=== PATIENT | female | born 1970 | race Caucasian/White ===

== ENCOUNTER 2023-05-13 10:30 | Observation (INO) | payer OTHER, SELFPAY ==
[2023-05-13] VITALS (12 sets, daily range): BP systolic 120–151; BP diastolic 78–84; PULSE 54–89; RESP 15–20; TEMP 36.3–36.7; O2SAT 94–99; BMI 37.1
--- NOTE | 2023-05-13 10:43 | ED.GENADUL1 ---
HPI - General Adult General Chief complaint: Urogenital-Female Stated complaint: COLD/BACK PAIN/POSS. UTI Time Seen by Provider: 05/13/23 10:43 History of Present Illness HPI narrative: this patient's here with her for evaluation of left flank and abdominal pain. She says her back trace been bothering her off and on for a couple months. She says her arthritis doctor thought it was probably arthritis. She has not had any blood in her urine. She has no history kidney stones personally, but she thinks her family does. She had a temperature of one zero two last night. She's had some shaking chills. She had sepsis five years ago when she was undergoing treatment for breast cancer. She's had bilateral mastectomy and lymph node dissection but the cancer originally was on her right breast. They did left breast prophylactically. She's not had any surgical procedures on her abdomen. She's not had previous hysterectomy or nephrectomy. She did not take any antibiotics. She is not on any chemotherapy now. She previously had a port in place but she doesn't now. She requests that we use her left arm for intravenous access. She's not had any vomiting but she has severe nausea. She has not had any diarrhea. Related Data Home Medications Medication Instructions Recorded Confirmed amlodipine 10 mg tablet 10 mg PO DAILY 05/13/23 05/13/23 atorvastatin 20 mg tablet 20 mg PO QPM 05/13/23 05/13/23 citalopram 20 mg tablet 20 mg PO DAILY 05/13/23 05/13/23 dapagliflozin propanediol 5 mg 5 mg PO DAILY 05/13/23 05/13/23 tablet (Farxiga) gabapentin 300 mg capsule 300 mg PO TID 05/13/23 05/13/23 glipizide 5 mg tablet 5 mg PO DAILY 05/13/23 05/13/23 losartan 100 1 tab PO DAILY 05/13/23 05/13/23 mg-hydrochlorothiazide 25 mg tablet oxaprozin 600 mg tablet 600 mg PO BID 05/13/23 05/13/23 tamoxifen 20 mg tablet 20 mg PO QPM 05/13/23 05/13/23 tizanidine 4 mg tablet 4 mg PO QPM 05/13/23 05/13/23 triamterene 37.5 1 cap PO DAILY 05/13/23 05/13/23 mg-hydrochlorothiazide 25 mg capsule triamterene 50 mg capsule 25 mg PO DAILY 05/13/23 05/13/23 Allergies Allergy/AdvReac Type Severity Reaction Status Date / Time acetaminophen [From Percocet] Allergy Severe Verified 05/13/23 10:45 homatropine [From Hycodan] Allergy Severe Verified 05/13/23 10:45 hydrocodone [From Hycodan] Allergy Severe Verified 05/13/23 10:45 naproxen [From Aleve] Allergy Severe Verified 05/13/23 10:45 oxycodone [From Percocet] Allergy Severe Verified 05/13/23 10:45 Sulfa (Sulfonamide Allergy Severe Verified 05/13/23 10:45 Antibiotics) Penicillins Allergy Mild Verified 05/13/23 10:45 PFSH PFSH Medical History (Updated 05/13/23 @ 12:58 by Bam Hudson MD) Acquired lymphedema ?I89.0 - Lymphedema, not elsewhere classified (ICD-10) Breast cancer ?C50.919 - Malignant neoplasm of unspecified site of unspecified female breast (ICD-10) Diabetes ?E11.9 - Type 2 diabetes mellitus without complications (ICD-10) Surgical History (Updated 05/13/23 @ 11:26 by Tanya Escobar) History of mastectomy ?Z90.10 - Acquired absence of unspecified breast and nipple (ICD-10) Exam Constitutional Vital Signs, click to edit/add: Last Vital Signs Temp 98.0 F 05/13/23 10:36 Pulse 88 05/13/23 12:34 Resp 18 05/13/23 12:34 BP 143/79 H 05/13/23 12:34 Pulse Ox 94 L 05/13/23 12:34 O2 Del Method Room Air 05/13/23 10:52 Course Vital Signs Vital signs: Vital Signs Temperature 98.0 F 05/13/23 10:36 Pulse Rate 89 05/13/23 10:36 Respiratory Rate 20 05/13/23 10:36 Blood Pressure 120/78 05/13/23 10:36 Pulse Oximetry 99 05/13/23 10:36 Oxygen Delivery Method Room Air 05/13/23 10:36 Temperature 98.0 F 05/13/23 10:36 Pulse Rate 88 05/13/23 12:34 Respiratory Rate 18 05/13/23 12:34 Blood Pressure 143/79 H 05/13/23 12:34 Pulse Oximetry 94 L 05/13/23 12:34 Oxygen Delivery Method Room Air 05/13/23 10:52 Medical Decision Making MDM Narrative Medical decision making narrative: this patient presents with history of rigors previous history of sepsis five years ago. Her urinalysis consistent with urinary tract infection. Lactate levels are up Holter she's not tachycardic or hypotensive and her white count is normal. She was put in sepsis protocol with IV fluids and early antibiotics. I'll discuss this with the hospitalist. Lab Data Labs: Lab Results 05/13/23 05/13/23 05/13/23 Range/Units 10:47 11:19 12:15 WBC 6.4 (4.0-11.0) 10^3/uL RBC 5.27 (4.20-5.40) 10^6/uL Hgb 15.7 (12.0-16.0) g/dL Hct 44.9 (36.0-48.0) % MCV 85.2 (81.0-99.0) fL MCH 29.8 (26.7-34.0) pg MCHC 35.0 (29.9-35.2) g/dL RDW 13.0 (11.0-15.0) % Plt Count 135 L (150-450) 10^3/uL MPV 9.7 (9.5-13.5) fL Neut % (Auto) 82.2 H (43.0-75.0) % Lymph % (Auto) 12.3 L (20.5-60.0) % [place] % (Auto) 3.6 (1.7-12.0) % Eos % (Auto) 0.8 L (0.9-7.0) % Baso % (Auto) 0.5 (0.2-2.0) % Neut # (Auto) 5.3 (1.4-6.5) 10^3/uL Lymph # (Auto) 0.8 L (1.2-3.8) 10^3/uL [place] # (Auto) 0.2 L (0.3-0.8) 10^3/uL Eos # (Auto) 0.1 (0.0-0.7) 10^3/uL Baso # (Auto) 0.0 (0.0-0.1) 10^3/uL Abs Immat Gran (auto) 0.04 H (0.00-0.03) 10^3/uL Imm/Tot Granulo (auto) 0.6 H (0.0-0.5) % VBG pH 7.429 (7.330-7.430) VBG pCO2 37.3 L (40.0-52.0) mmHg Sodium 138 (136-145) mmol/L Potassium 2.9 L* (3.5-5.1) mmol/L Chloride 99 (98-107) mmol/L Carbon Dioxide 24.4 (21.0-32.0) mmol/L Anion Gap 17.5 BUN 23.0 H (7.0-18.0) mg/dL Creatinine 1.00 (0.55-1.02) mg/dL Est GFR ( Amer) >60 (>=60) Est GFR (Non-Af Amer) 59 L (>=60) BUN/Creatinine Ratio 23.0 Glucose 180 H (74-106) mg/dL Lactate 2.3 H* (0.4-2.0) mmol/L Calcium 8.9 (8.5-10.1) mg/dL Total Bilirubin 0.4 (0.2-1.0) mg/dL AST 53 H (15-37) U/L ALT 32 (14-59) U/L Alkaline Phosphatase 55 (46-116) U/L Total Protein 7.3 (6.4-8.2) g/dL Albumin 3.6 (3.4-5.0) g/dL Globulin 3.7 g/dL Albumin/Globulin Ratio 1.0 Urine Color Yellow (YELLOW) Urine Clarity Clear (CLEAR) Urine pH 6.5 (5.0-9.0) Ur Specific [place] 1.015 (1.005-1.025) Urine Protein Negative (NEG/TRACE) mg/dL Urine Glucose (UA) >=1000 A (NEGATIVE) mg/dL Urine Ketones Negative (NEGATIVE) mg/dL Urine Occult Blood Negative (NEGATIVE) Urine Nitrite Positive A (NEGATIVE) Urine Bilirubin Negative (NEGATIVE) Urine Urobilinogen 0.2 (0.2-1.0) EU/dL Ur Leukocyte Esterase Negative (NEGATIVE) Urine RBC None seen (0-2) #/HPF Urine WBC 10-20 A (NONE SEEN) #/HPF Ur Squamous Epith Cells Few A (NONE/RARE) #/LPF Urine Bacteria Large A (NONE SEEN) #/HPF Urine Mucus None seen (NONE SEEN) Ur Culture Indicated? Yes Discharge Plan Discharge Chief Complaint: Urogenital-Female Clinical Impression: Urinary tract infection, Sepsis Patient Disposition: Admitted as Observation Time of Disposition Decision: 12:58 Prescriptions / Home Meds: No Action amlodipine 10 mg tablet 10 mg PO DAILY atorvastatin 20 mg tablet 20 mg PO QPM citalopram 20 mg tablet 20 mg PO DAILY Farxiga 5 mg tablet 5 mg PO DAILY gabapentin 300 mg capsule 300 mg PO TID glipizide 5 mg tablet 5 mg PO DAILY losartan-hydrochlorothiazide 100-25 mg tablet 1 tab PO DAILY oxaprozin 600 mg tablet 600 mg PO BID tamoxifen 20 mg tablet 20 mg PO QPM triamterene-hydrochlorothiazid 37.5-25 mg capsule 1 cap PO DAILY tizanidine 4 mg tablet 4 mg PO QPM triamterene 50 mg capsule 25 mg PO DAILY Referrals: ARMIN FRITZ [Primary Care Provider] - 1 week
--- NOTE | 2023-05-13 10:46 | CT_ITS ---
[address] [address] Patient Name: MARIA M MCKEON MRN: [id number] date: 1970 Sex: F Assigned Patient Location: ER Current Patient Location: ER Accession/Order Number: [id number] Exam Date: 05/13/2023 11:26 Report Date: 05/13/2023 12:33 At the request of: ERENDIRA RIVERA Procedure: CT abdomen pelvis wo con EXAM: CT abdomen pelvis wo con INDICATION: flank pain/fever. COMPARISON: CT abdomen pelvis 05/28/2021. TECHNIQUE: Multiple contiguous axial CT images of the abdomen and pelvis were obtained without the use of intravenous contrast. Sagittal and coronal reconstructions were performed. Dose reduction techniques were achieved by using: automated exposure control and/or adjustment of mA and /or kV according to patient size and/or use of iterative reconstruction technique. FINDINGS: Evaluation of visceral organs limited by noncontrast technique. LOWER CHEST: Clear lung bases. The heart is normal in size. No pericardial or pleural effusion. ABDOMEN AND PELVIS: Liver: Diffuse fatty infiltration. Biliary System: Normal gallbladder. No biliary ductal dilatation. Pancreas: Unremarkable. Spleen: Unremarkable. Adrenal Glands: Normal. Urinary System: No renal, ureteral, or bladder calculi. No hydronephrosis or perinephric fatty stranding. Normal bladder. Reproductive organs: Unremarkable. Gastrointestinal Tract: Normal caliber bowel. No bowel wall thickening or inflammation. Normal appendix. Colonic diverticulosis without diverticulitis. Vessels: Nonaneurysmal abdominal aorta with minimal atherosclerotic calcifications.. Lymph Nodes: No adenopathy. Peritoneum: No ascites or pneumoperitoneum. MUSCULOSKELETAL: Soft tissues: Unremarkable soft tissues. Bones: No acute osseous abnormality or suspicious osseous lesion. DARLING: (series:image) CT/CT abdomen pelvis wo con IMPRESSION: 1. No obstructive uropathy or other acute process. 2. Hepatic steatosis. 3. Colonic diverticulosis. Electronically authenticated by: JOSE GOMEZ Date: 05/13/2023 12:33
--- NOTE | 2023-05-13 10:52 | PC.NURSE ---
urine collected, yellow and cloudy
[2023-05-13 11:26] LABS: Bilirubin Urine NEGATIVE (NEGATIVE); Blood Urine NEGATIVE (NEGATIVE); Clarity Urine CLEAR (CLEAR); Color Urine YELLOW (YELLOW); Glucose Urine UA >=1000 mg/dL (NEGATIVE); Ketones Urine NEGATIVE (NEGATIVE); Leukocyte Esterase Urine NEGATIVE (NEGATIVE); Nitrite Urine POSITIVE (NEGATIVE); Protein Urine NEGATIVE (NEG/TRACE); Specific Gravity Urine 1.015 (1.005-1.025); Urobilinogen Urine 0.2 EU/dL (0.2-1.0); pH Urine 6.5 (5.0-9.0)
[2023-05-13 11:31] LABS: Urine Microscopic Indicated YES
[2023-05-13] MEDS: ONDANSETRON PF 4 MG/2 ML VIAL IV (11:32)
[2023-05-13] MEDS: 0.9 % SODIUM CHLORIDE 1,000 ML 999 ML IV (11:32)
[2023-05-13 11:37] LABS: Basophils Percent Auto 0.5 % (0.2-2.0); Eosinophils Absolute Auto 0.1 10^3/uL (0.0-0.7); Eosinophils Percent Auto 0.8 % (0.9-7.0); Hematocrit 44.9 % (36.0-48.0); Hemoglobin 15.7 g/dL (12.0-16.0); Immature Granulocytes Abs Auto 0.04 10^3/uL (0.00-0.03); Immature Granulocytes Pct Auto 0.6 % (0.0-0.5); Lymphocytes Absolute Auto 0.8 10^3/uL (1.2-3.8); Lymphocytes Percent Auto 12.3 % (20.5-60.0); Mean Corpuscular Hemoglobin 29.8 pg (26.7-34.0); Mean Corpuscular Volume 85.2 fL (81.0-99.0); Mean Platelet Volume 9.7 fL (9.5-13.5); Monocytes Absolute Auto 0.2 10^3/uL (0.3-0.8); Monocytes Percent Auto 3.6 % (1.7-12.0); Neutrophils Absolute Auto 5.3 10^3/uL (1.4-6.5); Neutrophils Percent Auto 82.2 % (43.0-75.0); Platelet Count 135 10^3/uL (150-450); Red Blood Count 5.27 10^6/uL (4.20-5.40); White Blood Count 6.4 10^3/uL (4.0-11.0)
[2023-05-13 11:39] LABS: Bacteria Urine LARGE #/HPF (NONE SEEN); Mucus Urine NONE SEEN (NONE SEEN); RBC Urine NONE SEEN #/HPF (0-2); Squamous Epithelial Cell Urine FEW #/LPF (NONE/RARE); Urine Culture Indicated YES
[2023-05-13 11:58] LABS: Alanine Aminotransferase 32 U/L (14-59); Albumin Level 3.6 g/dL (3.4-5.0); Alkaline Phosphatase 55 U/L (46-116); Anion Gap 17.5; Aspartate Amino Transferase 53 U/L (15-37); Bilirubin Total 0.4 mg/dL (0.2-1.0); Calcium 8.9 mg/dL (8.5-10.1); Carbon Dioxide 24.4 mmol/L (21.0-32.0); Chloride 99 mmol/L (98-107); Estimated GFR (African America >60 (>=60); Estimated GFR (Non-African Ame 59 (>=60); Globulin 3.7 g/dL; Glucose 180 mg/dL (74-106); Sodium 138 mmol/L (136-145); Total Protein 7.3 g/dL (6.4-8.2)
[2023-05-13 12:00] LABS: Lactate/Lactic Acid 2.3 mmol/L (0.4-2.0)
--- NOTE | 2023-05-13 12:00 | ECG_ITS ---
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
[2023-05-13] MEDS: CIPROFLOXACIN IN 5 % DEXTROSE 400 MG/200 ML PIGGYBACK IV (12:01)
[2023-05-13 12:02] LABS: Potassium 2.9 mmol/L (3.5-5.1)
[2023-05-13] MEDS: POTASSIUM CHLORIDE 10 MEQ ER TABLET 20 MEQ PO ×3 (12:29→20:18)
[2023-05-13 12:31] LABS: pH VBG 7.429 (7.330-7.430)
[2023-05-13 12:32] LABS: PCO2 VBG 37.3 mmHg (40.0-52.0)
[2023-05-13] MEDS: 0.9 % SODIUM CHLORIDE 1,503 ML 501 ML IV (12:38)
[2023-05-13] MEDS: ENOXAPARIN SODIUM 40 MG/0.4 ML SYRINGE SUBQ (14:39)
[2023-05-13] MEDS: LACTATED RINGER'S SOLUTION 1,000 ML 125 ML IV ×2 (14:39→22:34)
--- NOTE | 2023-05-13 15:31 | P.HP_ITS ---
H&P: HPI History of Present Illness Chief complaint: COLD/BACK PAIN/SEPSIS/UTI Narrative: patient is a 52-year-old white female with past medical history of [id number] type 2 diabetes, hypertension, status post vasectomy from breast cancer currently on tamoxifen therapypresented to the Emergency Room today with increased weakness, fevers chills. She states over the last month she has been having some right low back pain and some pain and urgency with urination. She denies any blood in her urine but yesterday started to feel flushed like she had a fever and just extreme fatigue. In the Emergency Room she was found to have a urinary tract infection, and elevated lactate, elevated temperature a hundred and two, and tachycardia. Sepsis protocol was initiated and patient was admitted for further care. At the time of admission she denies any nausea vomiting or diarrhea. Does admit to some left flank pain and some suprapubic pain. Review of Systems ROS Narrative ROS: a complete review of systems were reviewed with patient and are positive as below or listed in History of Chief Complaint. General: fever, chills, no night sweats Head: no headache, trauma, visual changes, nausea or vomiting Skin: no reported rashes, itching or sores Eyes: no blurriness of vision Ears: no reported hearing loss, vertigo, earache, or tinnitus Throat: no sore throat, hoarseness, swelling of neck, or tongue pain Heart: no chest pain Lungs: no shortness of breath or cough GI: no diarrhea or vomiting/nausea Urinary: urinary urgency, frequency and pain Neuro: no numbness or tingling HEM: no bleeding issues or bruising ENDO: no thyroid problems Psych: no anxiety or depression [facility] Medical History (Updated 05/13/23 @ 15:39 by Elda Shannon DO) Acquired lymphedema ?I89.0 - Lymphedema, not elsewhere classified (ICD-10) Breast cancer ?C50.919 - Malignant neoplasm of unspecified site of unspecified female breast (ICD-10) Diabetes ?E11.9 - Type 2 diabetes mellitus without complications (ICD-10) Surgical History History of mastectomy ?Z90.10 - Acquired absence of unspecified breast and nipple (ICD-10) Family History Mother Family history of cancer Father Family history of diabetes mellitus Other Family history of myocardial infarction Social History Within the past year, how often did you have a drink containing alcohol: 2-4 times a month Within the past year, how many standard drinks containing alcohol did you have on a typical day: 1 or 2 Within the past year, how often did you have six or more drinks on one occasion: never Total score: 0 Score interpretation: A score less than 3 is consistent with normal alcohol consumption. 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 level of school completed/degree received: Master's degree Feel stressed/tense/nervous/anxious/difficulty sleeping: not at all Do you think of yourself as: straight/heterosexual Gender Identity: female Meds Home Medications and Allergies Home Medications Medication Instructions Recorded Confirmed Type amlodipine 10 mg tablet 10 mg PO DAILY 05/13/23 05/13/23 History atorvastatin 20 mg tablet 20 mg PO QPM 05/13/23 05/13/23 History citalopram 20 mg tablet 20 mg PO DAILY 05/13/23 05/13/23 History dapagliflozin propanediol 5 mg 5 mg PO DAILY 05/13/23 05/13/23 History tablet (Farxiga) gabapentin 300 mg capsule 300 mg PO TID 05/13/23 05/13/23 History glipizide 5 mg tablet 5 mg PO DAILY 05/13/23 05/13/23 History losartan 100 1 tab PO DAILY 05/13/23 05/13/23 History mg-hydrochlorothiazide 25 mg tablet oxaprozin 600 mg tablet 600 mg PO BID 05/13/23 05/13/23 History tamoxifen 20 mg tablet 20 mg PO QPM 05/13/23 05/13/23 History tizanidine 4 mg tablet 4 mg PO QPM 05/13/23 05/13/23 History triamterene 37.5 1 cap PO DAILY 05/13/23 05/13/23 History mg-hydrochlorothiazide 25 mg capsule Allergies Allergy/AdvReac Type Severity Reaction Status Date / Time acetaminophen [From Percocet] Allergy Severe Verified 05/13/23 10:45 homatropine [From Hycodan] Allergy Severe Verified 05/13/23 10:45 hydrocodone [From Hycodan] Allergy Severe Verified 05/13/23 10:45 naproxen [From Aleve] Allergy Severe Verified 05/13/23 10:45 oxycodone [From Percocet] Allergy Severe Verified 05/13/23 10:45 Sulfa (Sulfonamide Allergy Severe Verified 05/13/23 10:45 Antibiotics) Penicillins Allergy Mild Verified 05/13/23 10:45 Exam Narrative Exam Narrative: General: Patient is alert, and oriented to person, place and time with normal affect, proper hygiene Skin: no visible rashes, or ulcers Head: atraumatic, acephalic Eyes: PERRLA, no nystagmus present, conjunctiva clear, no scleral icterus Ears: normal gross auditory acuity Heart: Normal rate and rhythm, no murmurs/rubs/gallops Lungs: no audible wheezes, crackles and normal breath sounds all lung fernandes Abdomen: Normal audible bowel sounds, no distension, No palpable masses, no organomegaly, no rebound/guarding/ or rigidity Musculoskeletal: no swelling bilateral lower extremities Vascular: Normal carotid, radial, femoral, posterior tibial, and dorsalis pedis pulses Lymph: no supraclavicular, axillary, or anterior/posterior cervical adenopathy Neuro: CN II-X grossly intact, normal sensation upper and lower extremities Constitutional Vital Signs, click to edit/add: Last Vital Signs Temp 98.0 F 05/13/23 14:04 Pulse 88 05/13/23 14:04 Resp 16 05/13/23 14:04 BP 151/84 H 05/13/23 14:04 Pulse Ox 96 05/13/23 14:04 O2 Del Method Room Air 05/13/23 14:04 Results Labs Labs: Short CBC 05/13/23 Range/Units 11:19 WBC 6.4 (4.0-11.0) 10^3/uL Hgb 15.7 (12.0-16.0) g/dL Hct 44.9 (36.0-48.0) % Plt Count 135 L (150-450) 10^3/uL BMP 05/13/23 11:19 Sodium 138 Potassium 2.9 L* Chloride 99 Carbon Dioxide 24.4 BUN 23.0 H Creatinine 1.00 Glucose 180 H Calcium 8.9 Liver Function 05/13/23 Range/Units 11:19 Total Bilirubin 0.4 (0.2-1.0) mg/dL AST 53 H (15-37) U/L ALT 32 (14-59) U/L Alkaline Phosphatase 55 (46-116) U/L Albumin 3.6 (3.4-5.0) g/dL Urine 05/13/23 Range/Units 10:47 Urine Color Yellow (YELLOW) Urine Clarity Clear (CLEAR) Urine pH 6.5 (5.0-9.0) Ur Specific [place] 1.015 (1.005-1.025) Urine Protein Negative (NEG/TRACE) mg/dL Urine Glucose (UA) >=1000 A (NEGATIVE) mg/dL ABG ABG results: 05/13/23 12:15 VBG pH 7.429 VBG pCO2 37.3 L Assessment and Plan Assessment and Plan (1) Urinary tract infection: Assessment and Plan: UA positive urine culture pending, was given Cipro in the emergency department will place on Levaquin [address] of abdomen and pelvis was negative (2) Sepsis: Assessment and Plan: elevated lactate, tachycardia, fever. Sepsis protocol was initiated and blood cultures urine culture and fluid bolus of thirty ML's per kilo in the Emergency Room then we'll place on LR at one hundred. Continue to trend lactate levels patient was placed in ICU for closer observation (3) Hypokalemia: Assessment and Plan: start klor-con 20meq BID (4) Non-insulin dependent type 2 diabetes mellitus: Assessment and Plan: and watch Accu-Cheks every before meals and daily at bedtime, sliding scale insulin as needed hold orals (5) Hypertension: Assessment and Plan: continue amlodipine, losartan hydrochlorothiazide, triamterene hydrochlorothiazide (6) Depression: Assessment and Plan: continue Celexa (7) Hyperlipidemia: Assessment and Plan: continue atorvastatin Plan patient is a full code lovenox for dvt prophylaxis
[2023-05-13] MEDS: ATORVASTATIN CALCIUM 20 MG TABLET PO (20:17)
[2023-05-13] MEDS: TIZANIDINE HCL 4 MG TABLET PO (20:17)
[2023-05-13] MEDS: TAMOXIFEN CITRATE 10 MG TABLET 20 MG PO (20:18)
[2023-05-13 21:38] LABS: Glucometer 173 mg/dL (74-106)
[2023-05-13] MEDS: GABAPENTIN 300 MG CAPSULE PO (21:43)
[2023-05-13] MEDS: INSULIN ASPART 300 UNIT/3 ML PEN SUBQ (21:43)
--- NOTE | 2023-05-13 22:29 | PC.NURSE ---
patient transferred from ICU to med-surg at 2215. Patient is resting in bed with call light in reach. LR at 125ml/hr was restarted. patient denies needs at this time.
[2023-05-14] VITALS (7 sets, daily range): BP systolic 123; BP diastolic 80; PULSE 54–69; RESP 18; TEMP 36.6; O2SAT 98
[2023-05-14] MEDS: GABAPENTIN 300 MG CAPSULE PO (05:15)
[2023-05-14 05:27] LABS: Basophils Percent Auto 0.8 % (0.2-2.0); Eosinophils Absolute Auto 0.2 10^3/uL (0.0-0.7); Hematocrit 40.9 % (36.0-48.0); Hemoglobin 13.7 g/dL (12.0-16.0); Immature Granulocytes Abs Auto 0.02 10^3/uL (0.00-0.03); Immature Granulocytes Pct Auto 0.5 % (0.0-0.5); Lymphocytes Absolute Auto 1.6 10^3/uL (1.2-3.8); Lymphocytes Percent Auto 39.6 % (20.5-60.0); Mean Corpuscular HGB Conc 33.5 g/dL (29.9-35.2); Mean Corpuscular Hemoglobin 29.2 pg (26.7-34.0); Mean Corpuscular Volume 87.2 fL (81.0-99.0); Mean Platelet Volume 9.7 fL (9.5-13.5); Monocytes Absolute Auto 0.5 10^3/uL (0.3-0.8); Monocytes Percent Auto 11.9 % (1.7-12.0); Neutrophils Absolute Auto 1.7 10^3/uL (1.4-6.5); Neutrophils Percent Auto 43.2 % (43.0-75.0); Platelet Count 112 10^3/uL (150-450); Red Blood Count 4.69 10^6/uL (4.20-5.40); Red Cell Distribution Width 13.2 % (11.0-15.0)
[2023-05-14] MEDS: LACTATED RINGER'S SOLUTION 1,000 ML 125 ML IV (06:01)
[2023-05-14 06:20] LABS: Alanine Aminotransferase 27 U/L (14-59); Albumin Globulin Ratio 0.9; Alkaline Phosphatase 42 U/L (46-116); Anion Gap 13.4; Aspartate Amino Transferase 43 U/L (15-37); Bilirubin Total 0.2 mg/dL (0.2-1.0); Calcium 8.6 mg/dL (8.5-10.1); Carbon Dioxide 23.4 mmol/L (21.0-32.0); Chloride 101 mmol/L (98-107); Estimated GFR (African America >60 (>=60); Estimated GFR (Non-African Ame >60 (>=60); Globulin 3.4 g/dL; Glucose 133 mg/dL (74-106); Potassium 3.8 mmol/L (3.5-5.1); Sodium 134 mmol/L (136-145); Total Protein 6.4 g/dL (6.4-8.2)
[2023-05-14 07:51] LABS: Glucometer 144 mg/dL (74-106)
--- NOTE | 2023-05-14 08:24 | PM.DS1 ---
DS: Providers Provider Date of admission: 05/13/23 13:54 Primary care physician: ARMIN FRITZ Admitting clinician: Elda Shannon Consults: 05/13/23 13:54 Occupational Therapy Eval and Treat Routine Reason for consultation: weakness Has provider been notified: No Physical Therapy Eval and Treat Routine Reason for consultation: weakness Has provider been notified: No Discharging clinician: Elda Shannon DS: Diagnosis Discharge Diagnosis (1) Urinary tract infection: (2) Sepsis: (3) Hypokalemia: (4) Non-insulin dependent type 2 diabetes mellitus: (5) Hypertension: (6) Depression: (7) Hyperlipidemia: DS: Summary Hospital Course Hospital Course: patient is a very pleasant 52-year-old female who was admitted for urinary tract infection and sepsis secondary to. Sepsis has resolved with IV fluid hydration and IV antibiotics. Normal labs findings this morning, patient symptoms has improved. She has remained afebrile overnight. Was given Cipro in the emergency department and was placed on Levaquin while in the hospital. She will be sent home on Levaquin 500 milligrams daily ?7 days. She will follow up with her primary care physician in 5-7 days who will follow up on urine culture is still pending at the time of discharge. She'll return to the Emergency Room with any worsening symptoms. She will resume all home medications there was no changes to her meds. Status at Discharge Functional status at discharge: independent ambulation Time Spent with Patient Time attestation: Total time spent providing and/or coordinating discharge services: Time spent: less than 30 minutes Exam Narrative Exam Narrative: General: Patient is alert, and oriented to person, place and time with normal affect, proper hygiene Skin: no visible rashes, or ulcers Head: atraumatic, acephalic Eyes: PERRLA, no nystagmus present, conjunctiva clear, no scleral icterus Ears: normal gross auditory acuity Nose: symmetric, no discharge, no maxillary or frontal sinus tenderness Mouth/Throat: no erythema, exudate, or tonsillar enlargement, normal dentition Neck: no masses palpated, normal thyroid, no JVD or audible carotid bruits Heart: Normal rate and rhythm, no murmurs/rubs/gallops Lungs: no audible wheezes, crackles and normal breath sounds all lung fernandes Abdomen: Normal audible bowel sounds, no distension, No palpable masses, no organomegaly, no rebound/guarding/ or rigidity Musculoskeletal: muscle atrophy noted, ROM is limited due to being in hospital bed, no swelling bilateral lower extremities Vascular: Normal carotid, radial, femoral, posterior tibial, and dorsalis pedis pulses Lymph: no supraclavicular, axillary, or anterior/posterior cervical adenopathy Neuro: CN II-X grossly intact, normal sensation upper and lower extremities Constitutional Vital Signs, click to edit/add: Last Vital Signs Temp 97.8 F 05/14/23 05:18 Pulse 62 05/14/23 07:54 Resp 18 05/14/23 05:18 BP 123/80 05/14/23 05:18 Pulse Ox 98 05/14/23 05:18 O2 Del Method Room Air 05/14/23 05:18 DS: Data Data Completed and Pending Labs on day of discharge: Labs from last 24 hours 05/14/23 05/14/23 05/13/23 07:49 05:14 21:37 WBC 4.0 RBC 4.69 Hgb 13.7 Hct 40.9 MCV 87.2 MCH 29.2 MCHC 33.5 RDW 13.2 Plt Count 112 L MPV 9.7 Neut % (Auto) 43.2 Lymph % (Auto) 39.6 [place] % (Auto) 11.9 Eos % (Auto) 4.0 Baso % (Auto) 0.8 Neut # (Auto) 1.7 Lymph # (Auto) 1.6 [place] # (Auto) 0.5 Eos # (Auto) 0.2 Baso # (Auto) 0.0 Abs Immat Gran (auto) 0.02 Imm/Tot Granulo (auto) 0.5 VBG pH VBG pCO2 Sodium 134 L Potassium 3.8 Chloride 101 Carbon Dioxide 23.4 Anion Gap 13.4 BUN 17.0 Creatinine 0.81 Est GFR ( Amer) >60 Est GFR (Non-Af Amer) >60 BUN/Creatinine Ratio 21.0 Glucose 133 H Lactate Calcium 8.6 Total Bilirubin 0.2 AST 43 H ALT 27 Alkaline Phosphatase 42 L Total Protein 6.4 Albumin 3.0 L Globulin 3.4 Albumin/Globulin Ratio 0.9 Urine Color Urine Clarity Urine pH Ur Specific [place] Urine Protein Urine Glucose (UA) Urine Ketones Urine Occult Blood Urine Nitrite Urine Bilirubin Urine Urobilinogen Ur Leukocyte Esterase Urine RBC Urine WBC Ur Squamous Epith Cells Urine Bacteria Urine Mucus Ur Culture Indicated? POC Glucose 144 H 173 H 05/13/23 05/13/23 05/13/23 14:20 12:15 11:19 WBC 6.4 RBC 5.27 Hgb 15.7 Hct 44.9 MCV 85.2 MCH 29.8 MCHC 35.0 RDW 13.0 Plt Count 135 L MPV 9.7 Neut % (Auto) 82.2 H Lymph % (Auto) 12.3 L [place] % (Auto) 3.6 Eos % (Auto) 0.8 L Baso % (Auto) 0.5 Neut # (Auto) 5.3 Lymph # (Auto) 0.8 L [place] # (Auto) 0.2 L Eos # (Auto) 0.1 Baso # (Auto) 0.0 Abs Immat Gran (auto) 0.04 H Imm/Tot Granulo (auto) 0.6 H VBG pH 7.429 VBG pCO2 37.3 L Sodium 138 Potassium 2.9 L* Chloride 99 Carbon Dioxide 24.4 Anion Gap 17.5 BUN 23.0 H Creatinine 1.00 Est GFR ( Amer) >60 Est GFR (Non-Af Amer) 59 L BUN/Creatinine Ratio 23.0 Glucose 180 H Lactate 1.0 2.3 H* Calcium 8.9 Total Bilirubin 0.4 AST 53 H ALT 32 Alkaline Phosphatase 55 Total Protein 7.3 Albumin 3.6 Globulin 3.7 Albumin/Globulin Ratio 1.0 Urine Color Urine Clarity Urine pH Ur Specific [place] Urine Protein Urine Glucose (UA) Urine Ketones Urine Occult Blood Urine Nitrite Urine Bilirubin Urine Urobilinogen Ur Leukocyte Esterase Urine RBC Urine WBC Ur Squamous Epith Cells Urine Bacteria Urine Mucus Ur Culture Indicated? POC Glucose 05/13/23 10:47 WBC RBC Hgb Hct MCV MCH MCHC RDW Plt Count MPV Neut % (Auto) Lymph % (Auto) [place] % (Auto) Eos % (Auto) Baso % (Auto) Neut # (Auto) Lymph # (Auto) [place] # (Auto) Eos # (Auto) Baso # (Auto) Abs Immat Gran (auto) Imm/Tot Granulo (auto) VBG pH VBG pCO2 Sodium Potassium Chloride Carbon Dioxide Anion Gap BUN Creatinine Est GFR ( Amer) Est GFR (Non-Af Amer) BUN/Creatinine Ratio Glucose Lactate Calcium Total Bilirubin AST ALT Alkaline Phosphatase Total Protein Albumin Globulin Albumin/Globulin Ratio Urine Color Yellow Urine Clarity Clear Urine pH 6.5 Ur Specific [place] 1.015 Urine Protein Negative Urine Glucose (UA) >=1000 A Urine Ketones Negative Urine Occult Blood Negative Urine Nitrite Positive A Urine Bilirubin Negative Urine Urobilinogen 0.2 Ur Leukocyte Esterase Negative Urine RBC None seen Urine WBC 10-20 A Ur Squamous Epith Cells Few A Urine Bacteria Large A Urine Mucus None seen Ur Culture Indicated? Yes POC Glucose Discharge Plan Discharge Disposition: Home, Self-Care Discharge Medications: New levofloxacin 500 mg tablet 500 mg PO DAILY 7 Days Qty: 7 0RF Continued amlodipine 10 mg tablet 10 mg PO DAILY atorvastatin 20 mg tablet 20 mg PO QPM citalopram 20 mg tablet 20 mg PO DAILY Farxiga 5 mg tablet 5 mg PO DAILY gabapentin 300 mg capsule 300 mg PO TID glipizide 5 mg tablet 5 mg PO DAILY losartan-hydrochlorothiazide 100-25 mg tablet 1 tab PO DAILY oxaprozin 600 mg tablet 600 mg PO BID tamoxifen 20 mg tablet 20 mg PO QPM triamterene-hydrochlorothiazid 37.5-25 mg capsule 1 cap PO DAILY tizanidine 4 mg tablet 4 mg PO QPM Activity: resume usual activities as tolerated Diet: advance to your usual diet Forms: Portal Instructions Follow Up Appointments: With PCP in 5-7 days, PCP will need to follow up on urine culture results
[2023-05-14] MEDS: CITALOPRAM HYDROBROMIDE 20 MG TABLET PO (09:41)
[2023-05-14] MEDS: POTASSIUM CHLORIDE 10 MEQ ER TABLET 20 MEQ PO (09:41)
[2023-05-14] MEDS: LEVOFLOXACIN IN DEXTROSE 5 % 750 MG/150 ML IV.SOLN 100 MG IV (09:42)
[2023-05-14] MEDS: AMLODIPINE BESYLATE 5 MG TABLET 10 MG PO (09:42)
[2023-05-14] MEDS: LOSARTAN POTASSIUM 50 MG TABLET 100 MG PO (09:42)
[2023-05-14] MEDS: ENOXAPARIN SODIUM 40 MG/0.4 ML SYRINGE SUBQ (09:43)
[2023-05-14 11:32] LABS: Glucometer 168 mg/dL (74-106)
--- NOTE | 2023-05-15 15:46 | CM.DCFOLLOWU ---
Person spoke with: patient How are you feeling? better, tried to work today, but came home How is your pain? no pain Did you understand your discharge instructions? yes Do you have any questions about your discharge instructions? no Were you given any prescriptions at discharge? yes Were you able to get your prescriptions filled? yes Do you understand how to take your medications as ordered? yes Do you have any questions about your follow up appointment and do you plan to keep your follow up appointment? no questions, follow up scheduled Is there anything else that you would like to discuss? no Questions/Comments/Concerns/Other:
== END 2023-05-14 12:33 | disposition home or self-care (01) | DRG 872 ==
LOC: ER 12:58 → ICU 13:56 → MS 05-14 11:43 → ICU 05-15 16:45 → MS 07-21 15:16
PROVIDERS: Admitting Provider Family Medicine; Emergency Provider Emergency Medicine Emergency Medical Services; PCP Family Medicine; Visit Provider Family Medicine
DX: A41.9 Sepsis, unspecified organism (principal); N39.0 Urinary tract infection, site not specified; Z16.11 Resistance to penicillins; B96.1 Klebsiella pneumoniae [K. pneumoniae] as the cause of diseases classified elsewhere; E87.6 Hypokalemia; E11.9 Type 2 diabetes mellitus without complications; I10 Essential (primary) hypertension; E78.5 Hyperlipidemia, unspecified; F32.A Depression, unspecified; I89.0 Lymphedema, not elsewhere classified; Z85.3 Personal history of malignant neoplasm of breast; Z90.13 Acquired absence of bilateral breasts and nipples; Z79.84 Long term (current) use of oral hypoglycemic drugs; Z79.818 Long term (current) use of other agents affecting estrogen receptors and estrogen levels; Z79.899 Other long term (current) drug therapy; Z88.5 Allergy status to narcotic agent; Z88.0 Allergy status to penicillin; Z88.2 Allergy status to sulfonamides; Z88.8 Allergy status to other drugs, medicaments and biological substances; Z83.3 Family history of diabetes mellitus; Z80.9 Family history of malignant neoplasm, unspecified; Z82.49 Family history of ischemic heart disease and other diseases of the circulatory system
CPT/HCPCS: 36415; 74176; 80053; 81001; 82800; 83605; 84145; 85025; 87040; 87086; 87150; 87186; 93005; 94761; 96365; 96366; 96372; 96375; 99285; G0378

== ENCOUNTER 2023-05-22 08:21 | Outpatient (OUT) | payer OTHER, SELFPAY ==
[2023-05-23 04:07] LABS: Estradiol 20.1 pg/mL (.); FSH 11.5 mIU/mL (.); Luteinizing Hormone(LH) 10.2 mIU/mL (.)
== END 2023-05-22 08:22 | disposition home or self-care (01) ==
LOC: LAB 08:25
PROVIDERS: PCP Family Medicine
DX: N95.1 Menopausal and female climacteric states (principal)
CPT/HCPCS: 36415; 82670; 83001; 83002

== ENCOUNTER 2023-05-27 08:56 | Outpatient (OUT) | payer OTHER, SELFPAY ==
[2023-05-27 18:57] LABS: Free T4 1.12 ng/dL (0.76-1.46)
[2023-05-28 08:08] LABS: Triiodothyronine (T3) 235 ng/dL (71-180); Triiodothyronine (T3), Free 4.4 pg/mL (2.0-4.4)
[2023-06-04 01:06] LABS: Reverse T3, Serum 16.1 ng/dL (9.2-24.1)
== END 2023-05-27 08:57 | disposition home or self-care (01) ==
LOC: LAB 08:58
PROVIDERS: PCP Family Medicine; Visit Provider Family Medicine
DX: E06.3 Autoimmune thyroiditis (principal); R53.82 Chronic fatigue, unspecified; E07.81 Sick-euthyroid syndrome
CPT/HCPCS: 36415; 84439; 84443; 84480; 84481; 84482

== ENCOUNTER 2023-10-28 16:41 | Emergency (ER) | payer OTHER, SELFPAY ==
[2023-10-28 16:52] VITALS: BP 148/94; PULSE 90; TEMP 36.9; O2SAT 98; BMI 36.3
[2023-10-28 16:57] VITALS: O2SAT 98
--- NOTE | 2023-10-28 17:09 | ED.UPPEXIN1 ---
HPI HPI - Extremity Injury (Upper) General Chief Complaint: Extremity Injury, Upper Stated Complaint: Upper Extremity Pain, Right Arm Time Seen by Provider: 10/28/23 16:44 Source: patient Mode of arrival: walk-in History of Present Illness HPI narrative: The patient presented to us with a 24 hours history of redness noted on the left arm she mentioned that there was no history of trauma no history of any recent incident to the left arm, but she have a history of mastectomy and she have lymphedema in the left side sometimes patient had cellulitis that developed in that area as well and she is worried that why she came to the ER. She denies any fever any abdominal pain nausea vomiting Related Data Home Medications ?Medication ?Instructions ?Recorded ?Confirmed amlodipine 10 mg tablet 10 mg PO DAILY 05/13/23 05/13/23 atorvastatin 20 mg tablet 20 mg PO QPM 05/13/23 05/13/23 citalopram 20 mg tablet 20 mg PO DAILY 05/13/23 05/13/23 dapagliflozin propanediol 5 mg 5 mg PO DAILY 05/13/23 05/13/23 tablet (Farxiga) gabapentin 300 mg capsule 300 mg PO TID 05/13/23 05/13/23 glipizide 5 mg tablet 5 mg PO DAILY 05/13/23 05/13/23 losartan 100 1 tab PO DAILY 05/13/23 05/13/23 mg-hydrochlorothiazide 25 mg tablet oxaprozin 600 mg tablet 600 mg PO BID 05/13/23 05/13/23 tamoxifen 20 mg tablet 20 mg PO QPM 05/13/23 05/13/23 tizanidine 4 mg tablet 4 mg PO QPM 05/13/23 05/13/23 triamterene 37.5 1 cap PO DAILY 05/13/23 05/13/23 mg-hydrochlorothiazide 25 mg capsule Previous Rx's ?Medication ?Instructions ?Recorded levofloxacin 500 mg tablet 500 mg PO DAILY 7 days #7 tabs 05/14/23 doxycycline monohydrate 100 mg 100 mg PO BID #20 caps 10/28/23 capsule Allergies Allergy/AdvReac Type Severity Reaction Status Date / Time acetaminophen [From Percocet] Allergy Severe Verified 05/13/23 10:45 homatropine [From Hycodan] Allergy Severe Verified 05/13/23 10:45 hydrocodone [From Hycodan] Allergy Severe Verified 05/13/23 10:45 naproxen [From Aleve] Allergy Severe Verified 05/13/23 10:45 oxycodone [From Percocet] Allergy Severe Verified 05/13/23 10:45 Sulfa (Sulfonamide Allergy Severe Verified 05/13/23 10:45 Antibiotics) Penicillins Allergy Mild Verified 05/13/23 10:45 Opioid HPI Opioid Management Most Recent Pain and Opioid Data: Last Pain Scale 2 05/13/23 17:47 Review of Systems ROS Status of ROS 10 or more systems reviewed and unremarkable except as noted in history and below [facility] Medical History (Updated 10/28/23 @ 17:07 by Alyssa Bey MD) Hyperlipidemia ?E78.5 - Hyperlipidemia, unspecified (ICD-10) Depression ?F32.A - Depression, unspecified (ICD-10) Hypertension ?I10 - Essential (primary) hypertension (ICD-10) Non-insulin dependent type 2 diabetes mellitus ?E11.9 - Type 2 diabetes mellitus without complications (ICD-10) Acquired lymphedema ?I89.0 - Lymphedema, not elsewhere classified (ICD-10) Breast cancer ?C50.919 - Malignant neoplasm of unspecified site of unspecified female breast (ICD-10) Diabetes ?E11.9 - Type 2 diabetes mellitus without complications (ICD-10) Surgical History History of mastectomy ?Z90.10 - Acquired absence of unspecified breast and nipple (ICD-10) Family History Mother Family history of cancer Father Family history of diabetes mellitus Other Family history of myocardial infarction Social History Within the past year, how often did you have a drink containing alcohol: 2-4 times a month Within the past year, how many standard drinks containing alcohol did you have on a typical day: 1 or 2 Within the past year, how often did you have six or more drinks on one occasion: never Total score: 0 Score interpretation: A score less than 3 is consistent with normal alcohol consumption. 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 General: Well-appearing and in no apparent distress. Skin: Warm, dry, no pallor noted. No rash. Head: Normocephalic, atraumatic. Neck: Supple, non-tender. Eye: Pupils are equal, round and EOMI. No scleral icterus. Ears, Nose, Mouth, and Throat: TM are clear, no nasal mucosal hypertrophy. Oral mucosa is moist, no posterior oropharynx erythema, uvula is mid-line Cardiovascular: Regular Rate and Rhythm without murmur, gallop or rub. Respiratory: No accessory muscle use or respiratory distress. Lungs are clear to auscultation, no wheezing, rales or rhonchi Chest Wall: no tenderness Back: No midline thoracic or lumbar vertebral tenderness. No CVA tenderness Musculoskeletal: normal ROM, no calf or popliteal tenderness, no lower extremity edema/swelling, on the dorsum of the left arm the patient have 3-4 spots of redness that is mostly circular ranging in size between 0.5 cm 0.6 cm , no surrounding induration no hotness GI: Abdomen is soft, non-distended. Normal bowel sounds. No masses appreciated. No tenderness to palpation. No rebound, guarding, or rigidity noted. Neurological: A&O x4. No cranial nerve dysfunction observed. No truncal ataxia. Moves all extremities. Sensation intact. Psychiatric: Cooperative and interactive. Normal mood and affect. Constitutional Vital Signs, click to edit/add: Last Vital Signs Temp 98.4 F 10/28/23 16:52 Pulse 90 10/28/23 16:52 Resp 20 10/28/23 16:52 BP 148/94 H 10/28/23 16:52 Pulse Ox 98 10/28/23 16:57 O2 Del Method Room Air 10/28/23 16:57 Course Vital Signs Vital signs: Vital Signs Temperature 98.4 F 10/28/23 16:52 Pulse Rate 90 10/28/23 16:52 Respiratory Rate 20 10/28/23 16:52 Blood Pressure 148/94 H 10/28/23 16:52 Pulse Oximetry 98 10/28/23 16:52 Oxygen Delivery Method Room Air 10/28/23 16:52 Temperature 98.4 F 10/28/23 16:52 Pulse Rate 90 10/28/23 16:52 Respiratory Rate 20 10/28/23 16:52 Blood Pressure 148/94 H 10/28/23 16:52 Pulse Oximetry 98 10/28/23 16:57 Oxygen Delivery Method Room Air 10/28/23 16:57 MDM - Extremity Injury (Upper) MDM Narrative Medical decision making narrative: Right now the patient presenting with this redness that just started within the last 24 hours the patient mentioned that she have a history of cellulitis to the left arm she does have a chronic lymphedema in the left arm Right now she be covered with doxycycline due to her history of infection as well as a history of lymphedema respiratory at risk for infection The patient was instructed about the importance of coming back in case of any progression of her symptoms as she had a history of being admitted for IV antibiotic, the patient understand that in case of any new symptoms including fever chills or any increasing redness she is to come back to the ER The patient is to follow up with primary care physician in next 2-3 days or to return to the emergency department should any of the signs or symptoms worsen or new symptoms develop. The patient agrees with the following Diagnosis and Treatment plan and the patient will be discharged home. Discharge Plan Discharge Stand Alone Forms: Portal Instructions Chief Complaint: Extremity Injury, Upper Clinical Impression: Folliculitis Patient Disposition: Home, Self-Care Time of Disposition Decision: 17:07 Condition: Good Prescriptions / Home Meds: New doxycycline monohydrate 100 mg capsule 100 mg PO BID Qty: 20 0RF No Action amlodipine 10 mg tablet 10 mg PO DAILY atorvastatin 20 mg tablet 20 mg PO QPM citalopram 20 mg tablet 20 mg PO DAILY Farxiga 5 mg tablet 5 mg PO DAILY gabapentin 300 mg capsule 300 mg PO TID glipizide 5 mg tablet 5 mg PO DAILY losartan-hydrochlorothiazide 100-25 mg tablet 1 tab PO DAILY oxaprozin 600 mg tablet 600 mg PO BID tamoxifen 20 mg tablet 20 mg PO QPM triamterene-hydrochlorothiazid 37.5-25 mg capsule 1 cap PO DAILY tizanidine 4 mg tablet 4 mg PO QPM levofloxacin 500 mg tablet 500 mg PO DAILY 7 Days Qty: 7 0RF Print Language: Mauritian Instructions: Cellulitis (ED), Folliculitis (ED) Referrals: ARMIN FRITZ [Primary Care Provider] - 1 week
--- OUTSIDE RECORDS SUMMARY | 2023-10-28 17:12 | XMS_ITS | CCD ---
Author Organization [facility] Care Team Providers Care Heel Lift Gouger Name Role Phone Nadeem Dorantes Unavailable Corey Grider Unavailable Cindy Goetz Unavailable Joe Mei Unavailable Adriana Georges Unavailable PAY ., DR SANCHEZ Attending Unavailable PAY ., DR SANCHEZ Consulting Unavailable PAY ., DR SANCHEZ Admitting Unavailable CHRISTIANSON ., DR ALBERT Darling Primary Care Unavailable BETO CABRERA Consulting Unavailable GRECHNY ., TERRENCE CLARK Consulting Unavailabl e CHRISTIANSON ., DR ALBERT Darling Primary Care Unavailable BETO CABRERA Admitting Unavailable BETO CABRERA Attending Unavailable HEMEYER ., DR CHÁVEZ Admitting Unavailable CHRISTIANSON ., DR ALBERT Darling Primary Care Unavailable HEMEYER ., DR CHÁVEZ Attending Unavailable CHRISTIANSON ., DR ALBERT Darling Admitting Unavailable CHRISTIANSON ., DR ALBERT Darling Attending Unavailable CHRISTIANSON ., DR ALBERT Darling Consulting Unavailable CHRISTIANSON ., DR ALBERT Darling Primary Care Unavailable DR TANYA WASHINGTON Consulting Unavailable CHRISTIANSON ., DR ALBERT Darling Admitting Unavailable CHRISTIANSON ., DR ALBERT Darling Attending Unavailable CHRISTIANSON ., DR ALBERT Darling Consulting Unavailable CHRISTIANSON ., DR ALBERT Darling Primary Care Unavailable HEMEYER ., DR CHÁVEZ Consulting Unavailable HEMEYER ., DR CHÁVEZ Admitting Unavailable CHRISTIANSON ., DR ALBERT Darling Primary Care Unavailable HEMEYER ., DR CHÁVEZ Attending Unavailable DR TANYA WASHINGTON Consulting Unavailable CHRISTIANSON ., DR ALBERT Darling Admitting Unavailable CHRISTIANSON ., DR ALBERT Darling Attending Unavailable CHRISTIANSON ., DR ALBERT Darling Primary Care Unavailable Leti Bowen Unavailable Renu Chris Unavailable Jannet Chatman Unavailable MD Albert Christianson Primary Care Provider MD Tanya Washington Attending Provider DO Driss Ornelas Referring Provider MD Albert Christianson Primary Care Provider DO Ze Larose Attending Provider [phone] SAIRA DHALIWAL Attending Unavailable Brown, Jessica Aquino Primary Care Physician Brown, Jessica L Attending Unavailable Brown, Jessica L Attending Unavailable Brown, Jessica L Attending Unavailable Brown, Jessica L Attending Unavailable Brown, Jessica L Attending Unavailable Brown, Jessica Aquino Attending Unavailable CHRISTIANSON, ALBERT Darling Attending Unavailable Brown, Jessica Aquino Attending Unavailable Brown, Jessica L Admitting Unavailable Brown, Jessica L Attending Unavailable Brown, Jessica L Attending Unavailable Brown, Jessica L Admitting Unavailable Brown, Jessica L Admitting Unavailable MD Albert Christianson Primary Care Provider MD Paulino Clemens Attending Provider Obermeyer, Jessica Aquino Admitting Unavailable Obermeyer, Jessica Aquino Attending Unavailable ChristiansonAlbert galindo Primary Care Unavailable Corey Grider Consulting Unavailable Paulino Clemens Admitting Unavailable Paulino Clemens Attending Unavailable Albert Christianson Primary Care Unavailable Tanya Washington Attending Unavailable Driss Ornelas Referring Unavailable Albert Christianson Primary Care Unavailable Tanya Washington Admitting [facility] Attending Unavailable Albert Christianson Primary Care Unavailable Obermeyer, Jessica Aquino Admitting Unavailable Obermeyer, Jessica Aquino Attending Unavailable Albert Christianson Primary Care Unavailable Allergies Allergy Classification Reported Allergen(s) Allergy Type Date of Onset Reaction(s) Facility (13 sources) Ciprofloxacin; Translations: [ciprofloxacin] Drug Allergy 03-13-20 [facility] (1 source) Penicillins (Antibiotic) Drug allergy itching [facility] Other (11 sources) Sulfonamides (Antibiotic) Drug allergy hives and swelling [facility] Other (15 sources) Acetaminophen / HYDROcodone; Translations: [Vicodin] Drug Allergy Vomiting (disorder) [facility] (12 sources) Acetaminophen / oxyCODONE; Translations: [acetaminophen-ox ycodone] Drug Allergy Vomiting (disorder) [facility] (2 sources) Acetaminophen / oxyCODONE Drug Allergy [facility] (1 source) Cetirizine Drug Allergy [facility] (1 source) Loratadine Drug Allergy [facility] (3 sources) Penicillins; Translations: [penicillins] Drug allergy (disorder) 12-21-19 13 [facility] (3 sources) Sulfamethoxazole; Translations: [sulfamethoxazole ] Drug Allergy 12-21-19 13 [facility] (1 source) Sulfonamides (Antibiotic) Drug allergy (disorder) [facility] (4 sources) Sulfonamides (Antibiotic); Translations: [Sulfa (Sulfonamide Antibiotics)] Allergy to substance 05-18-20 Hives, Hives, hives and swelling [facility] (3 sources) Latex; Translations: [Latex] Drug allergy [facility] (3 sources) NITROFURANTOIN, MACROCRYSTALS / Nitrofurantoin, Monohydrate; Translations: [nitrofurantoin] Drug Allergy Unknown (qualifier value) [facility] (2 sources) Sulfamethoxazole; Translations: [sulfamethoxazole ] Drug Allergy Cutaneous eruption (morphologic abnormality) [facility] (1 source) Acetaminophen / oxyCODONE; Translations: [Percocet 10/325] Drug Allergy [facility] (1 source) corn extract; Translations: [[place]] Drug Allergy [facility] (1 source) Wheat preparation; Translations: [Wheat] Drug Allergy [facility] (1 source) SUGAR; Translations: [SUGAR] Food allergy (disorder) [facility] (1 source) Milk Products; Translations: [Milk Products] Food allergy (disorder) [facility] (2 sources) Acetaminophen; Translations: [acetaminophen] Drug Allergy 03-13-20 [facility] (2 sources) HYDROcodone; Translations: [hydrocodone] Drug Allergy 03-13-20 [facility] (2 sources) oxyCODONE; Translations: [oxycodone] Drug Allergy 03-13-20 [facility] Medications Current Medications Medication Drug Class(es) Dates Sig (Normalized) Sig (Original) 0.25 MG, 0.5 MG Dose 3 ML semaglutide 0.68 MG/ML Pen Injector [Ozempic] (1 source) Start: 09-20-2023 inject 0.5 mg by subcutaneous injection every week Ozempic 2 mg/3 mL (0.25 mg or 0.5 mg dose) subcutaneous solution 0.5 mg, SubCutaneous, qWeek, # 1 EA, Refills(s) 2, Pharmacy: [facility], 157.5, cm, 09/12/23 8:34:00 EST, Height/Length Dosing, 92.4, kg, 09/12/23 8:34:00 EST, Weight Dosing Start Date: 09/20/23 Status: Ordered [id number] 200 actuat albuterol 0.09 mg/actuat metered dose inhaler (11 sources) beta2-Adrenergic Agonist Start: 07-13-2021 take 2 puff(s) by inhalation every four hours as needed Start: 07-13-2021 take 2 puff(s) by inhalation e very four hours as needed amLODIPine 10 mg oral tablet (15 sources) Dihydropyridine Calcium Channel Florina Start: 12-11-2019 take 1 tablet by mouth once daily amLODIPine 10 mg Tab 10 mg = 1 tab(s), Oral, Daily, # 90 tab(s), Refills(s) 3, Pharmacy: [facility], 157.5, cm, 09/12/23 8:34:00 EST, Height/Length Dosing, 92.4, kg, 09/12/23 8:34:00 EST, Weight Dosing Start Date: 09/12/23 Status: Ordered Amlodipine & Diet Manage Prod (1 source) Amlodipine & t Manage Prod Active atorvastatin 20 mg oral tablet (4 sources) HMG-CoA Reductase Inhibitor Start: 06-06-2023 take 1 tablet by mouth once daily atorvastatin 20 mg Tab 20 mg = 1 tab(s), Oral, Daily, # 90 tab(s), Refills(s) 3, Pharmacy: [facility], 157.5, cm, 05/22/23 9:15:00 EDT, Height/Length Dosing, 92.6, kg, 05/22/23 9:15:00 EDT, Weight Dosing Start Date: 06/06/23 Status: Ordered take 1 tablet by doris th every twenty-four hours Lipitor 20 MG 1 tablet Orally Once a day Active azithromycin 250 mg oral tablet (1 source) Macrolide Antimicrobial Start: 07-13-2021 Zithromax Z-Elmer 250 MG 2 tablets on the first day, then 1 tablet daily for 4 days Orally Once a day for 5 day(s) Jun, Active benzonatate 100 mg oral capsule (1 source) Non-narcotic Antitussive Start: 07-13-2021 take 1 capsule by mouth three times daily as needed Tessalon Perles 100 MG 1 capsule as needed Orally Three times a day for 10 days Jun, Active ciprofloxacin 500 mg oral tablet (1 source) Quinolone Antimicrobial Start: 06-19-2023 End: 06-26-2023 take 1 tablet by mouth every twelve hours ciprofloxacin 500 mg Tab 500 mg = 1 tab(s), Oral, q12hr, X 7 day(s), # 14 tab(s), Refills(s) 0, Pharmacy: [facility]/pharmacy #[id number], 157.5, cm, 06/19/23 9:21:00 EST, Height/Length Dosing, 92.6, kg, 06/19/23 9:21:00 EST, Weight Dosing Start Date: 06/19/23 Stop Date: 06/26/23 Status: Ordered citalopram 20 mg oral tablet (16 sources) Serotonin Reuptake Inhibitor Start: 09-12-2019 take 1 tablet by mouth once daily citalopram 20 mg Tab 20 mg = 1 tab(s), Oral, Daily, # 90 tab(s), Refills(s) 3, Pharmacy: [facility], 157.5, cm, 09/12/23 8:34:00 EST, Height/Length Dosing, 92.4, kg, 09/12/23 8:34:00 EST, Weight Dosing Start Date: 09/12/23 Status: Ordered CeleXA Active dalbavancin 500 mg injection (4 sources) Lipoglycopeptide Antibacterial Start: 11-05-2021 take 1500 mg intravenously once Dalvance 500 MG 1500 mg IV Intravenous Once for 1 days Oct, Active glipiZIDE 5 mg oral tablet (16 sources) Sulfonylurea Start: 09-12-2023 take 1 tablet by mouth once daily glipiZIDE 5 mg Tab 5 mg = 1 tab(s), Oral, Daily, # 90 tab(s), Refills(s) 3, Pharmacy: [facility], 157.5, cm, 09/12/23 8:34:00 EST, Height/Length Dosing, 92.4, kg, 09/12/23 8:34:00 EST, Weight Dosing Start Date: 09/12/23 Status: Ordered Start: 12-13-2022 take 1 tablet by doris th once daily glipiZIDE 5 mg Tab 5 mg = 1 tab(s), Oral, Daily, # 90 tab(s), Refills(s) 3, Pharmacy: [facility], 157.5, cm, 12/13/22 15:39:00 EDT, Height/Length Dosing, 93.9, kg, 12/13/22 15:39:00 EDT, Weight Dosing Start Date: 12/13/22 Status: Ordered Start: 04-28-2021 take 10 mg by mouth once daily Glipizide Active 10 MG PO Daily April 28, 2021 12:00am glipiZIDE Active hydroCHLOROthiazide 25 mg / losartan potassium 100 mg oral tablet (15 sources) Thiazide Diuretic, Angiotensin 2 Receptor Florina Start: 04-17-2023 take 1 tablet by mouth once daily Losartan-Hydrochlorothiazide Active 1 TAB PO Daily May 18, 2023 12:00am take 1 tablet by doris th every twenty-four hours Losartan Potassium-HCTZ 100-25 MG 1 tabl et Orally Once a day Active take 1 tablet by doris th every twenty-four hours Losartan Potassium-HCTZ 100-12.5 MG 1 tablet Orally Once a day Active methylPREDNISolone 4 mg oral tablet (1 source) Corticosteroid Start: 07-13-2021 Medrol (Elmer) 4 MG as directed Orally for 6 days Jun, Active LOG SCALER Thyroid (1 source) LOG SCALER Thyroid Active oxaprozin 600 mg oral tablet (5 sources) Nonsteroidal Anti-inflammatory Drug Start: 05-18-2023 take 600 mg by mouth once daily Oxaprozin Active 600 MG PO Daily May 18, 2023 12:00am Start: 05-15-2023 take 1 tablet by doris th twice daily oxaprozin 600 mg Tab 600 mg = 1 tab(s), Oral, BID, Refills(s) 0 Start Date: 05/15/23 Status: Ordered Thyroid (Pork) (Nature-Throid) 65 mg Tablet (3 sources) Start: 03-11-2020 take 1 tablet by mouth twice daily Thyroid (Pork) (Nature-Throid) 65 mg Tablet Active 65 MG PO Twice daily March 11, 2020 12:00am thyroid (SHELTER) (12 sources) Start: 03-11-2020 Natural Thyroi d Natural Thyroid, 45mcg tablet BID Start Date: 03/11/20 Status: Ordered take 1 tablet by mouth every twe lve hours LOG SCALER Thyroid 60 MG 1 tablet on an empty stomach Orally bid Active tiZANidine 4 mg oral capsule (6 sources) Central alpha-2 Adrenergic Agonist Start: 12-13-2022 take 1 capsule by mouth once daily tizanidine 4 mg oral capsule 4 mg = 1 cap(s), Oral, Daily, Refills(s) 0 Start Date: 12/13/22 Status: Ordered tiZANidine HCl 4 MG 1 tablet Orally at night Active Triamterene (1 source) Potassium-sparing Diuretic Triam terene Active Completed/Discontinued Medications Medication Drug Class(es) Dates Sig (Normalized) Sig (Original) acitretin 10 mg oral capsule (3 sources) Retinoid Start: 01-24-2018 End: 08-03-2018 take 10 mg by mouth once daily Acitretin Discontinued 10 MG PO Daily January 24, 2018 12:00am August 03, 2018 11:26am 0.8 ml adalimumab 50 mg/ml prefilled syringe (3 sources) Tumor Necrosis Factor Florina Start: 11-23-2020 End: 04-28-2021 inject 40 mg by subcutaneous injection every week Adalimumab (Humira) 40 mg/0.8 mL Syringe Kit Discontinued 40 MG SUBCUT every week November 23, 2020 12:00am April 28, 2021 9:40am amoxicillin 875 mg / clavulanate 125 mg oral tablet (3 sources) Penicillin-class Antibacterial Start: 07-11-2018 End: 08-03-2018 take 1 tablet by mouth every twelve hours Amoxicillin-Pot Clavulanate (Augmentin) 875-125 mg Tablet Discontinued 1 TAB PO Q12H 20 July 11, 2018 1:00am August 03, 2018 11:02am cefuroxime 500 mg oral tablet (3 sources) Cephalosporin Antibacterial Start: 07-08-2020 End: 04-28-2021 take 500 mg by mouth twice daily Cefuroxime Axetil Discontinued 500 MG PO Twice daily July 08, 2020 1:00am April 28, 2021 9:41am cephalexin 500 mg oral capsule (18 sources) Cephalosporin Antibacterial Start: 05-12-2022 take 1 capsule by mouth every eight hours Cephalexin 500 MG 1 capsule Orally three times a day for 5 days Apr, Not-Taking Start: 10-28-2021 Cephalexin 500 MG Take two capsules first dose then one capsule Orally Four times a day for 10 days Sep, Not-Taking Start: 01-24-2018 End: 02-03-2018 take 1 capsule by mouth four times daily Cephalexin (Keflex) 500 mg capsule Discontinued 500 MG PO Four times daily 39 January 24, 2018 12:00am February 03, 2018 12:02am take 2 capsules by m outh every six hours Keflex 250 MG 2 capsule Orally every 6 hrs Not-Taking chlorhexidine gluconate 1.2 mg/ml mouthwash (3 sources) Start: 02-22-2023 take 10 mL by mouth twice daily Chlorhexidine Gluconate 0.12 % 10 ml Mouth/Throat Twice a day for 30 days Jan, Not-Taking clindamycin 0.01 mg/mg topical gel (16 sources) Lincosamide Antibacterial Start: 10-28-2021 Clindamycin Phosphate 1 % 1 application Externally to palms of hands Twice a day for 30 day(s) Sep, Not-Taking Start: 10-28-2021 Clindamycin Ph osphate 1 % 1 application Externally Twice a day to axillary areas for 30 day(s) Sep, Not-Taking Start: 08-07-2018 End: 09-07-2018 take 300 mg by mouth three times daily Clindamycin Hcl Discontinued 300 MG PO Three times daily 17 02August 07, 2018 4:03pm September 07, 2018 10:33am dapagliflozin 5 mg oral tablet (20 sources) Sodium-Glucose Cotransporter 2 Inhibitor Start: 07-08-2020 End: 05-18-2023 take 1 tablet by mouth once daily Dapagliflozin Propanediol (Farxiga) 5 mg Tablet Discontinued 5 MG PO Daily November 23, 2020 12:00am November 23, 2020 9:40am take 1 tablet by doris th every twenty-four hours Farxiga 10 MG 1 tablet Orally Once a day Active Farxiga Active doxycycline hyclate 100 mg oral capsule (3 sources) Tetracycline-class Drug Start: 08-03-2018 End: 08-07-2018 take 100 mg by mouth twice daily Doxycycline Hyclate Discontinued 100 MG PO Twice daily 14 August 03, 2018 1:00am August 07, 2018 4:06pm fluconazole 100 mg oral tablet (12 sources) Azole Antifungal Start: 11-09-2018 End: 12-27-2018 take 100 mg by mouth once daily Fluconazole Discontinued 100 MG PO Daily 60 November 09, 2018 12:00am December 27, 2018 2:41pm Start: 09-21-2018 End: 10-05-2018 take 100 mg by mouth once daily Fluconazole Discontinued 100 MG PO Daily 7 September 21, 2018 4:04pm October 05, 2018 11:32am fluticasone propionate 0.05 mg/actuat metered dose nasal spray (3 sources) Corticosteroid Start: 08-03-2018 End: 07-08-2020 Fluticasone Propionate Discontinued 0 .ROUTE .COMPLEX 1 August 03, 2018 1:00am July 08, 2020 3:48pm 1 spray intranasally ;administer into each nostril daily for 3 days, then every other day for 4 days, then once weekly gabapentin 300 mg oral capsule (20 sources) Anti-epileptic Agent Start: 05-16-2019 End: 09-26-2022 take 300 mg by mouth three times daily Gabapentin Discontinued 300 MG PO Three times daily 270 October 08, 2021 2:58pm September 26, 2022 9:20am Start: 03-27-2019 End: 05-16-2019 Gabapentin Discontinued 0 .R OUTE .COMPLEX 200 March 27, 2019 12:00am May 16, 2019 8:28am Take 100 mg PO at bedtime x 1 day, then BID x 3 days, then TID x 7 days, then take 200 mg PO TID x 7 days, then take 300 mg PO TID Gabapentin Activ e hydroCHLOROthiazide 12.5 mg / lisinopril 10 mg oral tablet (3 sources) Thiazide Diuretic, Angiotensin Converting Enzyme Inhibitor Start: 01-24-2018 End: 12-11-2019 take 1 tablet by mouth once daily Lisinopril-Hydrochlorothiazide Discontinued 1 TAB PO Daily January 24, 2018 12:00am December 11, 2019 2:04pm hydroCHLOROthiazide 25 mg / triamterene 37.5 mg oral capsule (13 sources) Potassium-spa ring Diuretic, Thiazide Diuretic Start: 12-11-2019 End: 05-18-2023 take 1 capsule by mouth once daily Triamterene-Hydrochlorothiazid Discontinued 1 CAP PO Daily December 11, 2019 12:00am May 18, 2023 3:39pm take 1 tablet by doris th every twenty-four hours Triamterene-HCTZ 37.5-25 MG 1 tablet in the morning Orally Once a day Active levoFLOXacin 750 mg oral tablet (3 sources) Quinolone Antimicrobial Start: 09-28-2018 End: 10-05-2018 take 750 mg by mouth once daily Levofloxacin Discontinued 750 MG PO Daily September 28, 2018 1:00am October 05, 2018 11:32am levothyroxine sodium 0.05 mg oral tablet (9 sources) l-Thyroxine Start: 11-23-2020 End: 05-12-2022 take 50 ug by mouth once daily Levothyroxine Discontinued 50 MCG PO Daily November 23, 2020 12:00am May 12, 2022 3:03pm Start: 09-12-2019 End: 03-11-2020 take 100 ug by mouth once daily Levothyroxine Discontinued 100 MCG PO Daily September 12, 2019 1:00am March 11, 2020 11:28am Start: 01-24-2018 End: 09-12-2019 Levothyroxine (Synthroid) 88 mcg tablet Discontinued 44 MCG PO Twice daily January 24, 2018 12:00am September 12, 2019 4:40pm liothyronine sodium 0.005 mg oral tablet (7 sources) l-Triiodothyronine Start: 07-08-2020 End: 05-12-2022 take 5 ug by mouth once daily Liothyronine Discontinued 5 MCG PO Daily July 08, 2020 1:00am May 12, 2022 3:03pm Start: 01-24-2018 End: 03-11-2020 take 5 ug by mouth twice daily Liothyronine Discontinu ed 5 MCG PO Twice daily January 24, 2018 12:00am March 11, 2020 11:28am Liothyronine Sod ium Not-Taking losartan potassium 100 mg oral tablet (4 sources) Angiotensin 2 Receptor Florina Start: 12-11-2019 End: 05-18-2023 take 100 mg by mouth once daily Losartan Discontinued 100 MG PO Daily December 11, 2019 12:00am May 18, 2023 3:38pm Losartan Potassi um Active Loteprednol Etabonate (Lotemax) 0.5 % Drops,Gel (3 sources) Start: 10-05-2018 End: 05-18-2023 apply 0.5 drop(s) into the eye(s) four times daily Loteprednol Etabonate (Lotemax) 0.5 % Drops,Gel Discontinued 1 DROPS EYE-BOTH Four times daily October 05, 2018 1:00am May 18, 2023 3:38pm 24 hr metFORMIN hydrochloride 500 mg extended release oral tablet (3 sources) Biguanide Start: 01-24-2018 End: 03-11-2020 take 750 mg by mouth once daily Metformin Discontinued 750 MG PO Daily January 24, 2018 12:00am March 11, 2020 11:28am minocycline 100 mg oral tablet (3 sources) Tetracycline-class Drug Start: 06-20-2019 End: 09-12-2019 take 100 mg by mouth once daily Minocycline Discontinued 100 MG PO Daily June 20, 2019 1:00am September 12, 2019 4:42pm mupirocin 0.02 mg/mg topical ointment (3 sources) RNA Synthetase Inhibitor Antibacterial Start: 06-20-2019 End: 04-28-2021 Mupirocin Discontinued 1 APPLIC TOPICAL Twice daily 100 30 June 20, 2019 4:58pm April 28, 2021 9:41am nasal for 3 days for 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 and prn skin wounds nabumetone 500 mg oral tablet (13 sources) Nonsteroidal Anti-inflammatory Drug Start: 11-10-2021 End: 05-18-2023 take 750 mg by mouth twice daily Nabumetone Discontinued 750 MG PO Twice daily November 10, 2021 12:00am May 18, 2023 3:38pm take 2 tablets by [facility] every twelve hours Nabumetone 500 MG 2 tablet Orally Twice a day Active take 1 tablet by doris every twelve hours Nabumetone 500 MG 1 tablet Orally Twice a day Active nitrofurantoin, macrocrystals 100 mg oral capsule (3 sources) Nitrofuran Antibacterial Start: 09-07-2018 End: 10-05-2018 take 100 mg by mouth twice daily Nitrofurantoin Macrocrystal Discontinued 100 MG PO Twice daily September 07, 2018 1:00am October 05, 2018 11:32am nitrofurantoin, macrocrystals 25 mg / nitrofurantoin, monohydrate 75 mg oral capsule (3 sources) Nitrofuran Antibacterial Start: 12-11-2019 End: 07-08-2020 take 1 capsule by mouth twice daily Nitrofurantoin Monohyd/M-Cryst (Macrobid) 100 mg Capsule Discontinued 100 MG PO Twice daily December 11, 2019 12:00am July 08, 2020 3:48pm nystatin 100 unt/mg topical powder (3 sources) Polyene Antifungal Start: 08-10-2018 End: 11-30-2018 Nystatin Discontinued 1 APPLIC TOPICAL Three times daily August 10, 2018 1:00am November 30, 2018 10:29am ondansetron 8 mg oral tablet (6 sources) Serotonin-3 Receptor Antagonist Start: 06-28-2018 End: 04-28-2021 take 1 tablet by mouth three times daily Ondansetron Hcl (Zofran) 8 mg Tablet Discontinued 8 MG PO Three times daily June 28, 2018 10:04am April 28, 2021 9:41am PARoxetine hydrochloride 20 mg oral tablet (3 sources) Serotonin Reuptake Inhibitor Start: 01-24-2018 End: 09-12-2019 take 40 mg by mouth once daily Paroxetine Hcl Discontinued 40 MG PO Daily January 24, 2018 12:00am September 12, 2019 4:41pm phenazopyridine hydrochloride 200 mg oral tablet (8 sources) Start: 05-12-2022 take 1 tablet by mouth every eight hours Pyridium 200 MG 1 tablet after meals Orally Three times a day for 2 day(s) Apr, Not-Taking Start: 11-09-2018 End: 09-12-2019 take 100 mg by mouth three times daily Phenazopyridine Discontinued 100 MG PO Three times daily November 09, 2018 10:29am September 12, 2019 4:42pm prednisoLONE acetate 10 mg/ml ophthalmic suspension (3 sources) Corticosteroid Start: 09-07-2018 End: 10-05-2018 take 1 drop(s) into the eye(s) four times daily Prednisolone Acetate Discontinued 1 DROPS EYE-LEFT Four times daily September 07, 2018 1:00am October 05, 2018 11:33am QUEtiapine 25 mg oral tablet (3 sources) Atypical Antipsychotic Start: 06-28-2018 End: 12-11-2019 Quetiapine (Seroquel) 25 mg Tablet Discontinued 12.5 MG PO Daily at bedtime June 28, 2018 1:00am December 11, 2019 2:04pm tamoxifen 20 mg oral tablet (20 sources) Estrogen Agonist/Antagonist Start: 11-30-2018 End: 05-03-2023 take 20 mg by mouth once daily Tamoxifen Discontinued 20 MG PO Daily 90 90 May 09, 2022 9:03am May 03, 2023 9:11am Tamoxifen Citrat e Active valACYclovir 1000 mg oral tablet (3 sources) Herpesvirus Nucleoside Analog DNA Polymerase Inhibitor, Herpes Simplex Virus Nucleoside Analog DNA Polymerase Inhibitor, Herpes Zoster Virus Nucleoside Analog DNA Polymerase Inhibitor Start: 12-11-2019 End: 03-11-2020 Valacyclovir (Valtrex) 1 gram Tablet Discontinued 1000 MG PO Three times daily December 11, 2019 12:00am March 11, 2020 11:28am Problems Active Problems Problem Classification Problem Date Documented Da te Episodic/Chronic Abdominal pain (6 sources) Flank pain; Translations: [Left flank pain] 08-06-2020 Episodic Allergic reactions (2 sources) H/O: multiple allergies 02-13-2012 Episodic Anxiety disorders (2 sources) Anxiety 10-11-2013 Chronic Cancer of breast (8 sources) Primary malignant neoplasm of breast; Translations: [Malignant neoplasm of unspecified site of right female breast] Onset: 3 06-09-2018 Chronic Cancer of breast (4 sources) Personal history of malignant neoplasm of breast; Translations: [History of malignant neoplasm of breast] Onset: 3 Episodic Cardiac dysrhythmias (1 source) Tachycardia 09-12-2023 Episodic Diabetes mellitus without complication (5 sources) Type 2 diabetes mellitus without complications; Translations: [Diabetes mellitus] Onset: 3 03-11-2020 Chronic Diabetes mellitus without complication (2 sources) High hemoglobin A1c level 03-03-2023 Episodic Diseases of mouth; excluding dental (1 source) Recurrent oral aphthae Episodic Diverticulosis and diverticulitis (2 sources) Diverticula of intestine 12-13-2022 Chronic Esophageal disorders (2 sources) Gastroesophageal reflux disease 10-11-2013 Chronic Essential hypertension (7 sources) Essential (primary) hypertension; Translations: [Hypertensive disorder] Onset: 2 Chronic 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 Genitourinary symptoms and ill-defined conditions (6 sources) Genuine stress incontinence; Translations: [Incontinence] 08-06-2020 Chronic Genitourinary symptoms and ill-defined conditions (20 sources) Dysuria; Translations: [Dysuria] Onset: 2 Episodic Immunizations and screening for infectious disease (10 sources) Contact with and (suspected) exposure to other viral communicable diseases; Translations: [Encounter for immunization] Onset: 1 Resolved: 2 Episodic Maintenance chemotherapy; radiotherapy (5 sources) Patient encounter status; Translations: [Encounter for antineoplastic chemotherapy] 09-07-2018 Chronic Malaise and fatigue (4 sources) Chronic fatigue, unspecified; Translations: [CHRONIC FATIGUE UNSPECIFIED] Onset: 2 Chronic Malaise and fatigue (2 sources) Other fatigue Episodic Malignant neoplasm without specification of site (2 sources) Malignant neoplastic disease 12-13-2022 Chronic Comment on above: palmoplantar Menopausal disorders (6 sources) Menopausal syndrome; Translations: [Menopausal and female climacteric states] Onset: 3 12-11-2019 Chronic Menopausal disorders (1 source) Hormone replacement therapy; Translations: [HORMONE REPLACEMENT THERAPY] Onset: 3 Episodic Mood disorders (4 sources) Chronic depression; Translations: [Depressive disorder] 10-11-2013 Chronic Nonspecific chest pain (14 sources) Chest pain, unspecified; Translations: [Chest wall pain] Onset: 2 Episodic Osteoarthritis (1 source) Primary generalized (osteo)arthritis; Translations: [Primary generalized (osteo)arthritis] Onset: 3 Chronic Other aftercare (1 source) Other salvage determiner (current) drug therapy; Translations: [OTH PRACTICE OR STUDENT TEACHER CURRENT DRUG THERAPY] Onset: 3 Episodic Other aftercare (3 sources) Patient encounter status; Translations: [Encounter for therapeutic drug level monitoring] 12-28-2018 Episodic Other diseases of kidney and ureters (2 sources) Infectious disorder of kidney 08-06-2020 Chronic Other diseases of veins and lymphatics (6 sources) Lymphedema; Translations: [Lymphedema, not elsewhere classified] 12-13-2022 Chronic Other diseases of veins and lymphatics (1 source) Lymphedema, not elsewhere classified Onset: 2 Resolved: 2 Chronic Other diseases of veins and lymphatics (6 sources) Lymphedema of left upper limb; Translations: [Lymphedema, not elsewhere classified] Chronic Other gastrointestinal disorders (2 sources) Irritable bowel syndrome 12-13-2022 Chronic Other infections; including parasitic (3 sources) History of sepsis; Translations: [Personal history of other infectious and parasitic diseases] 04-28-2021 Episodic Other infections; including parasitic (2 sources) Personal history of other infectious and parasitic diseases; Translations: [Personal history of unspecified infectious and parasitic disease] 05-18-2023 Episodic Other inflammatory condition of skin (2 sources) Lichen planus 12-13-2022 Episodic Other inflammatory condition of skin (2 sources) 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 Other liver diseases (1 source) Fatty (change of) liver, not elsewhere classified; Translations: [FATTY CHANGE LIVER NEC] Onset: 3 Chronic Other liver diseases (3 sources) Liver cyst; Translations: [Other specified diseases of liver] 06-28-2018 Chronic Other liver diseases (2 sources) Other specified diseases of liver; Translations: [Other specified disorders of liver] 05-18-2023 Chronic Other liver diseases (2 sources) Steatosis of liver 03-11-2020 Chronic Other nervous system disorders (3 sources) Peripheral neuropathy due to and following chemotherapy; Translations: [Drug-induced polyneuropathy] 11-09-2018 Chronic Other nervous system disorders (2 sources) Drug-induced polyneuropathy; Translations: [Polyneuropathy due to other toxic agents] 05-18-2023 Chronic Other non-epithelial cancer of skin (2 sources) History of malignant neoplasm of skin 03-11-2020 Episodic Other skin disorders (3 sources) Hidradenitis suppurativa; Translations: [Hidradenitis] Onset: 2 Resolved: 2 Episodic Other skin disorders (5 sources) Rash and other nonspecific skin eruption; Translations: [RASH OTH NONSPECIFIC SKIN ERUPTION] Onset: 3 Episodic Other skin disorders (5 sources) Localized swelling, mass and lump, left upper limb; Translations: [Mass of left axilla] 03-28-2019 Episodic Other skin disorders (3 sources) Hidradenitis suppurativa; Translations: [Hidradenitis suppurativa] 09-07-2018 Episodic Other skin disorders (2 sources) Hidradenitis 06-24-2020 Episodic Other upper respiratory disease (2 sources) Deviated nasal septum 10-11-2013 Episodic Other upper respiratory disease (2 sources) Hypertrophy of nasal turbinates 10-11-2013 Episodic Other upper respiratory infections (2 sources) Chronic sinusitis 10-11-2013 Chronic Other upper respiratory infections (1 source) Acute upper respiratory infection, unspecified Episodic Residual codes; unclassified (3 sources) Estrogen receptor positive tumor; Translations: [Estrogen receptor positive status [ER+]] 06-09-2018 Episodic Residual codes; unclassified (3 sources) Genetic mutation; Translations: [Genetic susceptibility to other disease] 09-07-2018 Episodic Residual codes; unclassified (2 sources) Estrogen receptor positive status [ER+]; Translations: [Estrogen receptor positive status [ER+]] 05-18-2023 Episodic Residual codes; unclassified (2 sources) Genetic susceptibility to other disease; Translations: [Genetic susceptibility to other disease] 05-18-2023 Episodic Spondylosis; intervertebral disc disorders; other back problems (16 sources) Sciatica; Translations: [Sciatica, right side] 07-09-2020 Episodic Thyroid disorders (6 sources) Autoimmune thyroiditis; Translations: [Hypothyroidism, unspecified] Onset: 2 10-11-2013 Chronic Unclassified (2 sources) Asymptomatic microscopic hematuria 08-06-2020 Unclassified (1 source) Malignant neoplasm of upper-outer quadrant of right female breast; Translations: [Malignant neoplasm of upper-outer quadrant of right female breast] Onset: 3 Urinary tract infections (2 sources) Chronic cystitis 06-24-2020 Chronic Urinary tract infections (4 sources) Acute cystitis with hematuria; Translations: [Urinary tract infection, site not specified] Onset: Episodic Past or Other Problems Problem Classification Problem Date Documented Da te Episodic/Chronic Chronic obstructive pulmonary disease and bronchiectasis (1 source) Bronchitis, not specified as acute or chronic Onset: 07-13-2021 Resolved: 07-13-2021 Episodic Other aftercare (3 sources) Encounter for therapeutic drug level monitoring; Translations: [Encounter for therapeutic drug monitoring] Onset: 05-18-2023 05-18-2023 Episodic Other aftercare (1 source) long term care social worker (current) use of selective estrogen receptor modulators (SERMs); Translations: [half-way (current) use of selective estrogen receptor modulators (SERMs)] Onset: 05-18-2023 Episodic Other skin disorders (1 source) Rash and other nonspecific skin eruption; Translations: [Rash and other nonspecific skin eruption] Onset: 01-05-2023 Episodic Residual codes; unclassified (1 source) Acquired absence of bilateral breasts and nipples; Translations: [ACQUIRED ABSENCE BI BREAST AND NIPPLES] Onset: 01-04-2022 Episodic Skin and subcutaneous tissue infections (2 sources) Cellulitis, unspecified Onset: 10-28-2021 Resolved: 11-04-2021 Episodic Thyroid disorders (1 source) Sick-euthyroid syndrome; 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 SYNDROME] Onset: 03-22-2022 Episodic Unclassified (1 source) Suspected COVID-19 virus infection Z20.822 Results Test Name Value Interpretation Reference Range Facility Alanine aminotransferase [En zymatic activity/volume] in Serum or PlasmaOrdered By: Paulino Clemens on 10-19-2023 ALT [Catalytic activity/Vol] 15 U/L 7-52 [facility] Albumin [Mass/volume] in Ser um or Plasma by Bromocresol green (BCG) dye binding methoOrdered By: Paulino Clemens on 10-19-2023 Albumin BCG dye [Mass/Vol] 4.5 g/dL 3.5-5.7 [facility] Alkaline phosphatase [Enzyma tic activity/volume] in Serum or PlasmaOrdered By: Paulino Clemens on 10-19-2023 ALP [Catalytic activity/Vol] 36 U/L 34-104 [facility] Aspartate aminotransferase [ Enzymatic activity/volume] in Serum or PlasmaOrdered By: Paulino Clemens on 10-19-2023 AST [Catalytic activity/Vol] 24 U/L 13-39 [facility] Basophils Auto (Bld) [#/Vol] Ordered By: Paulino Clemens on 10-19-2023 Basophils (Bld) [#/Vol] 0.0 10*3/uL 0.0-0.2 [facility] Basophils/100 WBC Auto (Bld) Ordered By: Paulino Clemens on 10-19-2023 Basophils/100 WBC (Bld) 0.5 % . [facility] Bilirubin.total [Mass/volume ] in Serum or PlasmaOrdered By: Paulino Clemens on 10-19-2023 Bilirubin [Mass/Vol] 0.4 mg/dL 0.3-1.[address] [facility] Calcium [Mass/volume] in Ser um or PlasmaOrdered By: Paulino Clemens on 10-19-2023 Calcium [Mass/Vol] 9.3 mg/dL 8.6-10.3 [facility] Carbon dioxide, total [Moles /volume] in Serum or PlasmaOrdered By: Paulino Clemens on 10-19-2023 CO2 [Moles/Vol] 27.6 mmol/L 21.0-31.0 [facility] Chloride [Moles/volume] in S sam or PlasmaOrdered By: Paulino Clemens on 10-19-2023 Chloride [Moles/Vol] 99 mmol/L 98-[address] [facility] Complete Blood Count Auto Di ffon 10-19-2023 Basophils (Bld) [#/Vol] 0.0 10*3/uL Normal 0.0-0.2 [facility] Comment on above: Result Comment: PERF ORMED BY: [facility] [address] [place] [address] PATHOLOGIST BENEFITS ADMINISTRATOR ADRIENNE DRAPER M.D. Performed By: #### A SO, EBVNA, EBVEAG, EBV VCAIGG, EBV VCAIGM #### [facility] , #### CMP, ESR, CRP, CBC #### [facility] [address] Basophils/100 WBC (Bld) 0.5 % Normal . [facility] Comment on above: Performed By: #### A SO, EBVNA, EBVEAG, EBV VCAIGG, EBV VCAIGM #### [facility] , #### CMP, ESR, CRP, CBC #### [address] Eosinophils (Bld) [#/Vol] 0.4 10*3/uL Normal 0.0-0.45 [facility] Comment on above: Performed By: #### A SO, EBVNA, EBVEAG, EBV VCAIGG, EBV VCAIGM #### [facility] , #### CMP, ESR, CRP, CBC #### [address] Eosinophils/100 WBC (Bld) 5.6 % Normal . [facility] Comment on above: Performed By: #### A SO, EBVNA, EBVEAG, EBV VCAIGG, EBV VCAIGM #### [facility] , #### CMP, ESR, CRP, CBC #### [address] Erythrocyte distribution width (RBC) [Ratio] 14.7 % Normal 11.9-15.3 [facility] Comment on above: Performed By: #### A SO, EBVNA, EBVEAG, EBV VCAIGG, EBV VCAIGM #### [facility] , #### CMP, ESR, CRP, CBC #### [address] Hematocrit (Bld) [Volume fraction] 43.4 % Normal 34.0-46.4 [facility] Comment on above: Performed By: #### A SO, EBVNA, EBVEAG, EBV VCAIGG, EBV VCAIGM #### [facility] , #### CMP, ESR, CRP, CBC #### [address] Hemoglobin (Bld) [Mass/Vol] 14.6 g/dL Normal 11.8-15.4 [facility] Comment on above: Performed By: #### A SO, EBVNA, EBVEAG, EBV VCAIGG, EBV VCAIGM #### [facility] , #### CMP, ESR, CRP, CBC #### [address] Lymphocytes (Bld) [#/Vol] 1.5 10*3/uL Normal 1.00-4.8 [facility] Comment on above: Performed By: #### A SO, EBVNA, EBVEAG, EBV VCAIGG, EBV VCAIGM #### [facility] , #### CMP, ESR, CRP, CBC #### [address] Lymphocytes/100 WBC (Bld) 23.1 % Normal . [facility] Comment on above: Performed By: #### A SO, EBVNA, EBVEAG, EBV VCAIGG, EBV VCAIGM #### [facility] , #### CMP, ESR, CRP, CBC #### [address] MCH (RBC) [Entitic mass] 29.1 pg Normal 24.7-34.3 [facility] Comment on above: Performed By: #### A SO, EBVNA, EBVEAG, EBV VCAIGG, EBV VCAIGM #### [facility] , #### CMP, ESR, CRP, CBC #### [address] MCV (RBC) [Entitic vol] 86.4 fL Normal 80-100 [facility] Comment on above: Performed By: #### A SO, EBVNA, EBVEAG, EBV VCAIGG, EBV VCAIGM #### [facility] , #### CMP, ESR, CRP, CBC #### [address] Mean Corpuscular HGB Conc 33.6 g/dL Normal 32.0-35.0 [facility] Comment on above: Performed By: #### A SO, EBVNA, EBVEAG, EBV VCAIGG, EBV VCAIGM #### [facility] , #### CMP, ESR, CRP, CBC #### [address] Monocytes (Bld) [#/Vol] 0.4 10*3/uL Normal 0.0-0.8 [facility] Comment on above: Performed By: #### A SO, EBVNA, EBVEAG, EBV VCAIGG, EBV VCAIGM #### [facility] , #### CMP, ESR, CRP, CBC #### [address] Monocytes/100 WBC (Bld) 6.6 % Normal . [facility] Comment on above: Performed By: #### A SO, EBVNA, EBVEAG, EBV VCAIGG, EBV VCAIGM #### [facility] , #### CMP, ESR, CRP, CBC #### [place] [address] [place] Neutrophils (Bld) [#/Vol] 4.1 10*3/uL Normal 1.8-7.7 [facility] Comment on above: Performed By: #### A SO, EBVNA, EBVEAG, EBV VCAIGG, EBV VCAIGM #### [facility] , #### CMP, ESR, CRP, CBC #### [place] [address] [place] Neutrophils/100 WBC (Bld) 64.2 % Normal . [facility] Comment on above: Performed By: #### A SO, EBVNA, EBVEAG, EBV VCAIGG, EBV VCAIGM #### [facility] , #### CMP, ESR, CRP, CBC #### [address] NRBC% 0.1 /100{WBC} Normal 0-0.5 [facility] Comment on above: Performed By: #### A SO, EBVNA, EBVEAG, EBV VCAIGG, EBV VCAIGM #### [facility] , #### CMP, ESR, CRP, CBC #### [address] Platelet mean volume (Bld) [Entitic vol] 7.8 fL Normal 6.3-10.7 [facility] Comment on above: Performed By: #### A SO, EBVNA, EBVEAG, EBV VCAIGG, EBV VCAIGM #### [facility] , #### CMP, ESR, CRP, CBC #### [address] Platelets (Bld) [#/Vol] 252 10*3/uL Normal 150-450 [facility] Comment on above: Performed By: #### A SO, EBVNA, EBVEAG, EBV VCAIGG, EBV VCAIGM #### [facility] , #### CMP, ESR, CRP, CBC #### [address] RBC (Bld) [#/Vol] 5.02 10*6/uL High 3.60-5.00 [facility] Comment on above: Performed By: #### A SO, EBVNA, EBVEAG, EBV VCAIGG, EBV VCAIGM #### [facility] , #### CMP, ESR, CRP, CBC #### [address] WBC (Bld) [#/Vol] 6.4 10*3/uL Normal 3.8-11.6 [facility] Comment on above: Performed By: #### A SO, EBVNA, EBVEAG, EBV VCAIGG, EBV VCAIGM #### [facility] , #### CMP, ESR, CRP, CBC #### [address] Comprehensive Metabolic Pane yadira 10-19-2023 Albumin [Mass/Vol] 4.5 g/dL Normal 3.5-5.7 [facility] Comment on above: Performed By: #### A SO, EBVNA, EBVEAG, EBV VCAIGG, EBV VCAIGM #### [facility] , #### CMP, ESR, CRP, CBC #### [address] Albumin/Globulin [Mass ratio] 2.0 {ratio} Normal [facility] Comment on above: Performed By: #### A SO, EBVNA, EBVEAG, EBV VCAIGG, EBV VCAIGM #### [facility] , #### CMP, ESR, CRP, CBC #### [address] ALP [Catalytic activity/Vol] 36 U/L Normal 34-104 [facility] Comment on above: Result Comment: PERF ORMED BY: [place] [address] PATHOLOGIST BENEFITS ADMINISTRATOR ADRIENNE DRAPER M.D. Performed By: #### A SO, EBVNA, EBVEAG, EBV VCAIGG, EBV VCAIGM #### [facility] , #### CMP, ESR, CRP, CBC #### [address] ALT [Catalytic activity/Vol] 15 U/L Normal 7-52 [facility] Comment on above: Performed By: #### A SO, EBVNA, EBVEAG, EBV VCAIGG, EBV VCAIGM #### [facility] , #### CMP, ESR, CRP, CBC #### [address] Anion gap [Moles/Vol] 13.6 mmol/L Normal 6.0-15.0 [facility] Comment on above: Performed By: #### A SO, EBVNA, EBVEAG, EBV VCAIGG, EBV VCAIGM #### [facility] , #### CMP, ESR, CRP, CBC #### [facility] [address] AST [Catalytic activity/Vol] 24 U/L Normal 13-39 [facility] Comment on above: Performed By: #### A SO, EBVNA, EBVEAG, EBV VCAIGG, EBV VCAIGM #### [facility] , #### CMP, ESR, CRP, CBC #### [facility] [address] [place] [address] Bilirubin [Mass/Vol] 0.4 mg/dL Normal 0.3-1.[address] [facility] Comment on above: Performed By: #### A SO, EBVNA, EBVEAG, EBV VCAIGG, EBV VCAIGM #### [facility] , #### CMP, ESR, CRP, CBC #### [address] Calcium [Mass/Vol] 9.3 mg/dL Normal 8.6-10.3 [facility] Comment on above: Performed By: #### A SO, EBVNA, EBVEAG, EBV VCAIGG, EBV VCAIGM #### [facility] , #### CMP, ESR, CRP, CBC #### [facility] [address] Chloride [Moles/Vol] 99 mmol/L Normal 98-[address] [facility] Comment on above: Performed By: #### A SO, EBVNA, EBVEAG, EBV VCAIGG, EBV VCAIGM #### [facility] , #### CMP, ESR, CRP, CBC #### [facility] [address] CO2 [Moles/Vol] 27.6 mmol/L Normal 21.0-31.0 [facility] Comment on above: Performed By: #### A SO, EBVNA, EBVEAG, EBV VCAIGG, EBV VCAIGM #### [facility] , #### CMP, ESR, CRP, CBC #### [facility] [address] Creatinine [Mass/Vol] 0.85 mg/dL Normal 0.60-1.20 [facility] Comment on above: Performed By: #### A SO, EBVNA, EBVEAG, EBV VCAIGG, EBV VCAIGM #### [facility] , #### CMP, ESR, CRP, CBC #### [facility] [address] GFR/1.73 sq M.predicted MDRD (S/P/Bld) [Vol rate/Area] mL/min/{1.73_m2} Normal [facility] Comment on above: Performed By: #### A SO, EBVNA, EBVEAG, EBV VCAIGG, EBV VCAIGM #### [facility] , #### CMP, ESR, CRP, CBC #### [facility] [address] Globulin (S) [Mass/Vol] 2.3 g/dL Normal [facility] Comment on above: Performed By: #### A SO, EBVNA, EBVEAG, EBV VCAIGG, EBV VCAIGM #### [facility] , #### CMP, ESR, CRP, CBC #### [facility] [address] Glucose [Mass/Vol] 107 mg/dL High 70-100 [facility] Comment on above: Result Comment: [facility] Glucose Reference Range is dependent on time and content of last meal. Glucose of more than 200 mg/dL in a nonstressed, ambulatory subject supports the diagnosis of Diabetes Mellitus. ADA recommended reference range Performed By: #### A SO, EBVNA, EBVEAG, EBV VCAIGG, EBV VCAIGM #### [facility] , #### CMP, ESR, CRP, CBC #### [facility] [address] [place] [address] Potassium [Moles/Vol] 3.2 mmol/L Low 3.5-5.1 [facility] Comment on above: Performed By: #### A SO, EBVNA, EBVEAG, EBV VCAIGG, EBV VCAIGM #### [facility] , #### CMP, ESR, CRP, CBC #### [address] Protein [Mass/Vol] 6.8 g/dL Normal 6.4-8.9 [facility] Comment on above: Performed By: #### A SO, EBVNA, EBVEAG, EBV VCAIGG, EBV VCAIGM #### [facility] , #### CMP, ESR, CRP, CBC #### [facility] [address] [place] [address] Sodium [Moles/Vol] 137 mmol/L Normal 136-145 [facility] Comment on above: Performed By: #### A SO, EBVNA, EBVEAG, EBV VCAIGG, EBV VCAIGM #### [facility] , #### CMP, ESR, CRP, CBC #### [facility] [address] [place] [address] Urea nitrogen [Mass/Vol] 24 mg/dL Normal 7-25 [facility] Comment on above: Performed By: #### A SO, EBVNA, EBVEAG, EBV VCAIGG, EBV VCAIGM #### [facility] , #### CMP, ESR, CRP, CBC #### [facility] [address] [place] [address] Creatinine [Mass/volume] in Serum or PlasmaOrdered By: Paulino Clemens on 10-19-2023 Creatinine [Mass/Vol] 0.85 mg/dL 0.60-1.20 [facility] Eosinophils Auto (Bld) [#/Vo l]Ordered By: Paulino Clemens on 10-19-2023 Eosinophils (Bld) [#/Vol] 0.4 10*3/uL 0.0-0.45 [facility] Eosinophils/100 WBC Auto (Bl d)Ordered By: Paulino Clemens on 10-19-2023 Eosinophils/100 WBC (Bld) 5.6 % . [facility] Erythrocyte distribution wid th Auto (RBC) [Ratio]Ordered By: Paulino Clemens on 10-19-2023 Erythrocyte distribution width (RBC) [Ratio] 14.7 % 11.9-15.3 [facility] Globulin Calc (S) [Mass/Vol] Ordered By: Paulino Clemens on 10-19-2023 Globulin (S) [Mass/Vol] 2.3 g/dL [facility] Glucose [Mass/volume] in Ser um or PlasmaOrdered By: Paulino Clemens on 10-19-2023 Glucose [Mass/Vol] 107 mg/dL 70-100 [facility] Comment on above: ADA recommended refe rence rangeRandom Glucose Reference Range is dependent on time and content of last meal. Glucose of more than 200 mg/dL in a nonstressed, ambulatory subject supports the diagnosis of Diabetes Mellitus. Hematocrit Auto (Bld) [Volum e fraction]Ordered By: Paulino Clemens on 10-19-2023 Hematocrit (Bld) [Volume fraction] 43.4 % 34.0-46.4 [facility] Hemoglobin [Mass/volume] in BloodOrdered By: Paulino Clemens on 10-19-2023 Hemoglobin (Bld) [Mass/Vol] 14.6 g/dL 11.8-15.4 [facility] Leukocytes [#/volume] correc queenie for nucleated erythrocytes in Blood by Automated counOrdered By: Paulino Clemens on 10-19-2023 WBC corrected for nucl RBC Auto (Bld) [#/Vol] 6.4 10*3/uL 3.8-11.6 [facility] Lymphocytes Auto (Bld) [#/Vo l]Ordered By: Paulino Clemens on 10-19-2023 Lymphocytes (Bld) [#/Vol] 1.5 10*3/uL 1.00-4.8 [facility] Lymphocytes/100 WBC Auto (Bl d)Ordered By: Paulino Clemens on 10-19-2023 Lymphocytes/100 WBC (Bld) 23.1 % . [facility] MCH Auto (RBC) [Entitic mass ]Ordered By: Paulino Clemens on 10-19-2023 MCH (RBC) [Entitic mass] 29.1 pg 24.7-34.3 [facility] MCHC Auto (RBC) [Mass/Vol]Or dered By: Paulino Clemens on 10-19-2023 MCHC (RBC) [Mass/Vol] 33.6 g/dL 32.0-35.0 [facility] MCV Auto (RBC) [Entitic vol] Ordered By: Paulino Clemens on 10-19-2023 MCV (RBC) [Entitic vol] 86.4 fL 80-100 [facility] Monocytes Auto (Bld) [#/Vol] Ordered By: Paulino Clemens on 10-19-2023 Monocytes (Bld) [#/Vol] 0.4 10*3/uL 0.0-0.8 [facility] Monocytes/100 WBC Auto (Bld) Ordered By: Paulino Clemens on 10-19-2023 Monocytes/100 WBC (Bld) 6.6 % . [facility] Neutrophils Auto (Bld) [#/Vo l]Ordered By: Paulino Clemens on 10-19-2023 Neutrophils (Bld) [#/Vol] 4.1 10*3/uL 1.8-7.7 [facility] Neutrophils/100 WBC Auto (Bl d)Ordered By: Paulino Clemens on 10-19-2023 Neutrophils/100 WBC (Bld) 64.2 % . [facility] No Panel InformationOrdered By: Paulino Clemens on 10-19-2023 Estimated GFR (CKD-EPI) > 60.0 mL/Min [facility] Creatinine Clearance (Chem N/A [facility] Nucleated erythrocytes [Pres ence] in Blood by Automated countOrdered By: Paulino Clemens on 10-19-2023 Nucleated RBC Auto Ql (Bld) 0.1 /100{WBC} 0-0.5 [facility] Platelet mean volume Auto (B ld) [Entitic vol]Ordered By: Paulino Clemens on 10-19-2023 Platelet mean volume (Bld) [Entitic vol] 7.8 fL 6.3-10.7 [facility] Platelets Auto (Bld) [#/Vol] Ordered By: Paulino Clemens on 10-19-2023 Platelets (Bld) [#/Vol] 252 10*3/uL 150-450 [facility] Potassium [Moles/volume] in Serum or PlasmaOrdered By: Paulino Clemens on 10-19-2023 Potassium [Moles/Vol] 3.2 mmol/L 3.5-5.1 [facility] Protein [Mass/volume] in Ser um or PlasmaOrdered By: Paulino Clemens on 10-19-2023 Protein [Mass/Vol] 6.8 g/dL 6.4-8.9 [facility] RBC Auto (Bld) [#/Vol]Ordere d By: Paulino Clemens on 10-19-2023 RBC (Bld) [#/Vol] 5.02 10*6/uL 3.60-5.00 [facility] Serum or plasma albumin/glob ulin mass ratioOrdered By: Paulino Clemens on 10-19-2023 Albumin/Globulin [Mass ratio] 2.0 {ratio} [facility] Serum or plasma anion gap de terminationOrdered By: Paulino Clemens on 10-19-2023 Anion gap [Moles/Vol] 13.6 mmol/L 6.0-15.0 [facility] Sodium [Moles/volume] in Ser um or PlasmaOrdered By: Paulino Clemens on 10-19-2023 Sodium [Moles/Vol] 137 mmol/L 136-145 [facility] Urea nitrogen [Mass/volume] in Serum or PlasmaOrdered By: Paulino Clemens on 10-19-2023 Urea nitrogen [Mass/Vol] 24 mg/dL 7-25 [facility] WBC Auto (Bld) [#/Vol]Ordere d By: Paulino Clemens on 10-19-2023 WBC (Bld) [#/Vol] 6.4 10*3/uL 3.8-11.6 [facility] Retail - Clinical Noteon Retail - Clinical Note [id number] #1.00TIFF Normal [facility] CHEMISTRYOrdered By: Michelle Jacobo on 09-20-2023 HbA1c (Bld) [Mass fraction] 7.0 % High <=5.9% [facility] ChemAutoSS Consent for Treatmenton 09-01 Consent for Treatment [id number] #1.00TIFF Normal [facility] [id number] 09-20-2023 HbA1c (Bld) [Mass fraction] 7.0 % High <=5.9 [facility] Comment on above: Performed By: #### [id number] ####[facility] [id number] [place] [address] Family Medicine Office/Clini c Noteon 09-12-2023 Family Medicine Office/Clinic Note HPI Staff Maria M is a 53 year old female presenting 3 month follow up Patient is here for follow up on Diabetes. How often are you checking your blood sugars? once daily and PRN What are your average readings? 80-120's Paresthesias, Ulcerations or sores? no Lisinopril, aspirin, statin therapy? Yes Foot Exam: Eye Exam: Last A1c: Hgb A1C %: 7.9 % High (06/19/23 09:45:00) Follow up for Mental Status: [facility] 03/03/23 JAYDA: 9 PHQ-9: 13 Medication adherence- Yes, takes medication as prescribed Medication refill needed: _ Suicidal thoughts-Not at this time Most recent JAYDA: 1 Most recent PHQ: 3 Patient is here for follow up on hypertension. How often are you checking your blood pressure? no just PRN What are your average readings? _ Onset: 1 year but worsening over last 2 months, will have intermittent tachycardia with walking heart rate will go to 120-132, does happen when sitting as well. does feel heart racing will feel SOB. 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 Questions/Concerns: Needs refills on Ozempic, amlodipine, citalopram, farxiga, glipizide Pt says she is having some nausea with Ozempic few says after injection but using peppermint does help. Doesn't want any medication at this time to help with nausea. History of Present Illness pt presents today for follow up on diabetes and anxiety Review of Systems PHQ Score Initial Depression Screen Score: 0 SCORE ROS - Provider Constitutional: no fever, no chills, no sweats, no fatigue Respiratory: no shortness of breath, no cough, no orthopnea, no wheezing. Cardiovascular: no chest pain, no palpitations, no edema. Neurologic: no headache, no dizziness, no numbness, no weakness. Physical Exam Vitals & Measurements HR: 78(Peripheral) RR: 18 BP: 136/82 SpO2: 99% HT: 62 in HT: 157.5 cm WT: 92.4 kg WT: 203.28 lb BMI: 37.25 General: alert, no acute distress ENMT: oral mucosa moist, no pharyngeal erythema or exudate Cardiovascular: regular rate and rhythm, normal peripheral perfusion Respiratory: Lungs CTA, respirations non labored Extremities: no deformity, no trauma Neurological: oriented x 4, LOC appropriate for age, CN II-XII intact, motor strength equal & normal bilaterally, speech normal Assessment/Plan 1. Type 2 diabetes mellitus (E11.9: Type 2 diabetes mellitus without complications) pt taking ozempic. having some nausea with it. BS have been 80-120. will have labs drawn after 09/19/23. May increase dose depending on results. RTC 3 months Ordered: HgbA1c 2. Elevated hemoglobin A1c (R73.09: Other abnormal glucose) will redraw after 09/19 Ordered: HgbA1c 3. Tachycardia (R00.0: Tachycardia, unspecified) pt c/o bouts of tachycardia. says it started after having covid. wants to give it a little more time before referral to cardiology 4. Anxiety (F41.9: Anxiety disorder, unspecified) JAYDA and PQH9 much improved 5. Non-smoker (Z78.9: Other specified health status) continue not smoking Ordered: HgbA1c 6. BMI 37.0-37.9, adult (Z68.37: Body mass index [BMI] 37.0-37.9, adult) BMI education complete Ordered: HgbA1c Orders: amlodipine, 10 mg = 1 tab(s), Oral, Daily, # 90 tab(s), Refills(s) 3, Pharmacy: [facility], 157.5, cm, 09/12/23 8:34:00 EST, Height/Length Dosing, 92.4, kg, 09/12/23 8:34:00 EST, Weight Dosing amlodipine, 10 mg = 1 tab(s), Oral, Daily, # 90 tab(s), Refills(s) 3, Pharmacy: [facility], 157.5, cm, 12/13/22 15:39:00 EDT, Height/Length Dosing, 93.9, kg, 12/13/22 15:39:00 EDT, Weight Dosing ciprofloxacin, 500 mg = 1 tab(s), Oral, q12hr, X 10 day(s), # 20 tab(s), Refills(s) 0, Pharmacy: [facility]/pharmacy #[id number], 157.5, cm, 06/19/23 9:21:00 EST, Height/Length Dosing, 92.6, kg, 06/19/23 9:21:00 EST, Weight Dosing citalopram, 20 mg = 1 tab(s), Oral, Daily, # 90 tab(s), Refills(s) 3, Pharmacy: [facility], 157.5, cm, 12/13/22 15:39:00 EDT, Height/Length Dosing, 93.9, kg, 12/13/22 15:39:00 EDT, Weight Dosing citalopram, 20 mg = 1 tab(s), Oral, Daily, # 90 tab(s), Refills(s) 3, Pharmacy: [facility], 157.5, cm, 09/12/23 8:34:00 EST, Height/Length Dosing, 92.4, kg, 09/12/23 8:34:00 EST, Weight Dosing dapagliflozin, 5 mg = 1 tab(s), Oral, Daily, # 90 tab(s), Refills(s) 3, Pharmacy: [facility], 157.5, cm, 09/12/23 8:34:00 EST, Height/Length Dosing, 92.4, kg, 09/12/23 8:34:00 EST, Weight Dosing dapagliflozin, 5 mg = 1 tab(s), Oral, Daily, # 90 tab(s), Refills(s) 3, Pharmacy: [facility], 157.5, cm, 12/13/22 15:39:00 EDT, Height/Length Dosing, 93.9, kg, 12/13/22 15:39:00 EDT, Weight Dosing glipiZIDE, 5 mg = 1 tab(s), Oral, Daily, # 90 tab(s), Refills(s) 3, Pharmacy: [facility], 157.5, cm, 09/12/23 8:34:00 EST, Height/Length Dosing, 92.4, kg, 09/12/23 8:34:00 EST, Weight Dosing glipiZIDE, 5 mg = 1 tab(s), Oral, Daily, # 90 tab(s), Refills(s) 3, Pharmacy: [facility], 157.5, cm, 12/13/22 15:39 (more content not included)... [facility] Comment on above: Result Comment: Elec tronically Signed By: Jessica Doe\.br\Date and Time Signed: 09/12/23 11:41 EST Retail - Clinical Noteon Retail - Clinical Note [id number] #1.00TIFF [facility] Formson 06-27-2023 Forms [id number] #1.00TIFF [facility] C Urineon 06-21-2023 Bacteria identified Cx Nom (U) Microbiology PROCEDURE: Urine Culture [R1] SOURCE: U CleanCatch BODY SITE: COLLECTED DATE/TIME: 06/19/2023 09:37 EST RECEIVED DATE/TIME: 06/19/2023 18:13 EST START DATE/TIME: 06/19/2023 18:13 EST FREE TEXT SOURCE: Jessica Doe Jodi L FINAL REPORTS Final Report [] Verified Date/Time: 06/21/2023 09:00 EST <10,000 cfu/ml Mixed skin contaminants Performing Locations R1: This test was performed at: [facility], [address] [place] [address], [address] , [place], Normal [facility] Comment on above: Performed By: #### [id number] ####[facility] [id number] [place] [address] Ambulatory Visit Summaryon 1 08-19-2022 Ambulatory Visit Summary MARIA M MCKEON :1970 Visit Date:06/19/2023 Ambulatory Visit Instructions Your Diagnosis Type 2 diabetes mellitus Left lower quadrant pain Left flank pain BMI 37.0-37.9, adult Non-smoker Tests Performed Urnls Dip Stick Auto w/o Microscopy POC 95041 Your Care Team Attending Physician - Jessica Doe Primary Care Physician - Jessica Doe This Is Your Medications [place] [facility] [place] (Natural Thyroid) amlodipine (amLODIPine 10 mg Tab) atorvastatin (atorvastatin 20 mg Tab) ciprofloxacin (ciprofloxacin 500 mg Tab) citalopram (citalopram 20 mg Tab) dapagliflozin (Farxiga 5 mg oral tablet) gabapentin (gabapentin 300 mg Cap) glipiZIDE (glipiZIDE 5 mg Tab) hydrochlorothiazide- losartan (hydrochlorothiazide -losartan 25 mg-100 mg Tab) oxaprozin (oxaprozin 600 mg Tab) tizanidine (tizanidine 4 mg oral capsule) Procedures Performed Bilateral mastectomy, Cervical biopsy, Chemotherapy, Colonoscopy, Excision of axillary lymph node, History of nasal sinus surgery, Other. Discharge Vitals Heart Rate (Peripheral) 76 Respiratory Rate 18 Blood Pressure 136/84 Height 157.5 cm Height 62 in Weight 92.6 kg Weight 203.72 lb BMI 37.33 Medications What How Much When Why Instructions New ciprofloxacin (ciprofloxacin 500 mg Tab) 1 Tablets By Mouth Every 12 hours Type 2 diabetes mellitus Left lower quadrant pain Left flank pain BMI 37.0-37.9, adult Non-smoker Duration: 7 Days Pickup at [facility]/pharmacy #[id number] Unchanged amlodipine (amLODIPine 10 mg Tab) 1 Tablets By Mouth Every day Unchanged atorvastatin (atorvastatin 20 mg Tab) 1 Tablets By Mouth Every day BMI 37.0-37.9, adult Non-smoker Unchanged citalopram (citalopram 20 mg Tab) 1 Tablets By Mouth Every day Unchanged dapagliflozin (Farxiga 5 mg oral tablet) 1 Tablets By Mouth Every day Unchanged gabapentin (gabapentin 300 mg Cap) 1 Capsules By Mouth 3 times a day Unchanged glipiZIDE (glipiZIDE 5 mg Tab) 1 Tablets By Mouth Every day Unchanged hydrochlorothiazide- losartan (hydrochlorothiazide -losartan 25 mg-100 mg Tab) 1 Tablets By Mouth Every day BMI 37.0-37.9, adult Non-smoker Unchanged Misc Prescription (Natural Thyroid) 0 45mcg tablet BID Unchanged oxaprozin (oxaprozin 600 mg Tab) 1 Tablets By Mouth 2 times a day Unchanged tizanidine (tizanidine 4 mg oral capsule) 1 Capsules By Mouth Every day Pharmacy Information [facility]/pharmacy #[id number]: [address], [place] [id number] [phone] Test Results Urnls Dip Stick Auto w/o Microscopy POC 60597 (06/19/2023) Bilirubin Urine Dipstick - Negative Blood Urine Dipstick - Negative Glucose Urine Dipstick - 2+ 500 mg/dl Ketones Urine Dipstick - Negative Leukocytes Urine Dipstick - Negative Nitrite Urine Dipstick - Negative Protein Urine Dipstick - Negative Specific [place] Urine Dipstick - 1.020 Urine Appearance Urine Dipstick - Clear Urine Color Urine Dipstick - Light yellow Urobilinogen Urine Dipstick - 2 EU/dl pH Urine Dipstick - 5.5 Allergies Latex Macrodantin (Unknown) Percocet 10/325 (Vomiting) Vicodin (Vomiting) sulfamethoxazole (Rash) Problems Ongoing - Any problem that you are currently receiving treatment for. Acid reflux Anxiety Asymptomatic microscopic hematuria Breast cancer Cancer Chronic depression Chronic sinusitis Depression Deviated nasal septum Diabetes Diverticula of intestine Elevated hemoglobin A1c Fatty liver Flank pain Frequent urination Hidradenitis History of - multiple allergies History of skin cancer Hypertension Hypertrophy of nasal turbinates Hypothyroid Hypothyroidism IBS (irritable bowel syndrome) Kidney infection Left flank pain Left lower quadrant pain Lichen planus Lymphedema Microhematuria Mixed incontinence Other chronic cystitis without hematuria Prurigo nodularis Sepsis secondary to UTI Straining to void Stress incontinence Type 2 diabetes mellitus Ureteral duplication, left Urge incontinence UTI symptoms Weak urine stream Patient Survey You may receive a survey via text or e-mail asking about your office visit. Please share your experience with us by completing your survey. We appreciate your feedback and thank you for choosing us for your care. [facility] Ambulatory Visit Summary MARIA M MCKEON :1970 Visit Date:06/19/2023 Ambulatory Visit Instructions Your Diagnosis Type 2 diabetes mellitus Left lower quadrant pain Left flank pain BMI 37.0-37.9, adult Non-smoker Tests Performed Urnls Dip Stick Auto w/o Microscopy POC 32607 Your Care Team Attending Physician - Jessica Doe Primary Care Physician - Jessica Doe This Is Your Medications List [facility] [place] (Natural Thyroid) amlodipine (amLODIPine 10 mg Tab) atorvastatin (atorvastatin 20 mg Tab) ciprofloxacin (ciprofloxacin 500 mg Tab) citalopram (citalopram 20 mg Tab) dapagliflozin (Farxiga 5 mg oral tablet) gabapentin (gabapentin 300 mg Cap) glipiZIDE (glipiZIDE 5 mg Tab) hydrochlorothiazide- losartan (hydrochlorothiazide -losartan 25 mg-100 mg Tab) oxaprozin (oxaprozin 600 mg Tab) tizanidine (tizanidine 4 mg oral capsule) Procedures Performed Bilateral mastectomy, Cervical biopsy, Chemotherapy, Colonoscopy, Excision of axillary lymph node, History of nasal sinus surgery, Other. Discharge Vitals Heart Rate (Peripheral) 76 Respiratory Rate 18 Blood Pressure 136/84 Height 157.5 cm Height 62 in Weight 92.6 kg Weight 203.72 lb BMI 37.33 Medications What How Much When Why Instructions New ciprofloxacin (ciprofloxacin 500 mg Tab) 1 Tablets By Mouth Every 12 hours Type 2 diabetes mellitus Left lower quadrant pain Left flank pain BMI 37.0-37.9, adult Non-smoker Duration: 7 Days Pickup at [facility]/pharmacy #[id number] Unchanged amlodipine (amLODIPine 10 mg Tab) 1 Tablets By Mouth Every day Unchanged atorvastatin (atorvastatin 20 mg Tab) 1 Tablets By Mouth Every day BMI 37.0-37.9, adult Non-smoker Unchanged citalopram (citalopram 20 mg Tab) 1 Tablets By Mouth Every day Unchanged dapagliflozin (Farxiga 5 mg oral tablet) 1 Tablets By Mouth Every day Unchanged gabapentin (gabapentin 300 mg Cap) 1 Capsules By Mouth 3 times a day Unchanged glipiZIDE (glipiZIDE 5 mg Tab) 1 Tablets By Mouth Every day Unchanged hydrochlorothiazide- losartan (hydrochlorothiazide -losartan 25 mg-100 mg Tab) 1 Tablets By Mouth Every day BMI 37.0-37.9, adult Non-smoker Unchanged Misc Prescription (Natural Thyroid) 0 45mcg tablet BID Unchanged oxaprozin (oxaprozin 600 mg Tab) 1 Tablets By Mouth 2 times a day Unchanged tizanidine (tizanidine 4 mg oral capsule) 1 Capsules By Mouth Every day Pharmacy Information [facility]/pharmacy #[id number]: [address], [place] [phone] Test Results Urnls Dip Stick Auto w/o Microscopy POC 81161 (06/19/2023) Bilirubin Urine Dipstick - Negative Blood Urine Dipstick - Negative Glucose Urine Dipstick - 2+ 500 mg/dl Ketones Urine Dipstick - Negative Leukocytes Urine Dipstick - Negative Nitrite Urine Dipstick - Negative Protein Urine Dipstick - Negative Specific [place] Urine Dipstick - 1.020 Urine Appearance Urine Dipstick - Clear Urine Color Urine Dipstick - Light yellow Urobilinogen Urine Dipstick - 2 EU/dl pH Urine Dipstick - 5.5 Allergies Latex Macrodantin (Unknown) Percocet 10/325 (Vomiting) Vicodin (Vomiting) sulfamethoxazole (Rash) Problems Ongoing - Any problem that you are currently receiving treatment for. Acid reflux Anxiety Asymptomatic microscopic hematuria Breast cancer Cancer Chronic depression Chronic sinusitis Depression Deviated nasal septum Diabetes Diverticula of intestine Elevated hemoglobin A1c Fatty liver Flank pain Frequent urination Hidradenitis History of - multiple allergies History of skin cancer Hypertension Hypertrophy of nasal turbinates Hypothyroid Hypothyroidism IBS (irritable bowel syndrome) Kidney infection Left flank pain Left lower quadrant pain Lichen planus Lymphedema Microhematuria Mixed incontinence Other chronic cystitis without hematuria Prurigo nodularis Sepsis secondary to UTI Straining to void Stress incontinence Type 2 diabetes mellitus Ureteral duplication, left Urge incontinence UTI symptoms Weak urine stream Patient Survey You may receive a survey via text or e-mail asking about your office visit. Please share your experience with us by completing your survey. We appreciate your feedback and thank you for choosing us for your care. Normal [facility] CHEMISTRYOrdered By: Cnidy Michelle se on 06-19-2023 HbA1c (Bld) [Mass fraction] 7.9 % High <=5.9% [facility] ChemAutoSS Family Medicine Office/Clini c Noteon 06-19-2023 Family Medicine Office/Clinic Note [facility] Staff Maria M is a 52 year old female presenting for 1 month follow up Sepsis secondary to UTI: [facility] pt was still fatigued and weak FMLA paperwork completed. Patient is here for follow up on Diabetes. How often are you checking your blood sugars? once every couple days What are your average readings? Fasting 170's Paresthesias, Ulcerations or sores? no Lisinopril, aspirin, statin therapy? Yes Last A1c: 02/13/23 7.6 had done at [facility]. Due today Questions/Concerns: no refills needed 2 days, started having left flank and abdominal LLQ pain rates pain a 6 out of 10 to left flank and LLQ feels crampy pain in intermittent during the day consistent at night. History of Present Illness pt presents today for follow up on Diabetes. Needs HGBA1C drawn today Review of Systems PHQ Score Initial Depression Screen Score: 0 SCORE ROS - Provider Constitutional: no fever, no chills, no sweats, no fatigue Respiratory: no shortness of breath, no cough, no orthopnea, no wheezing. Cardiovascular: no chest pain, no palpitations, no edema. Neurologic: no headache, no dizziness, no numbness, no weakness. LLQ pain left flank pain Physical Exam Vitals & Measurements HR: 76(Peripheral) RR: 18 BP: 136/84 SpO2: 98% HT: 62 in HT: 157.5 cm WT: 92.6 kg WT: 203.72 lb BMI: 37.33 General: alert, no acute distress ENMT: oral mucosa moist, no pharyngeal erythema or exudate Cardiovascular: regular rate and rhythm, normal peripheral perfusion Respiratory: Lungs CTA, respirations non labored Extremities: no deformity, no trauma Neurological: oriented x 4, LOC appropriate for age, CN II-XII intact, motor strength equal & normal bilaterally, speech normal Assessment/Plan 1. Type 2 diabetes mellitus (E11.9: Type 2 diabetes mellitus without complications) Last HGBA1C was 7. 6 in January. will redraw HGBA1C in office today. pt c/o LLQ pain and left flank pain. will check urine in office today. will send urine for culture. Ordered: ciprofloxacin, 500 mg = 1 tab(s), Oral, q12hr, X 7 day(s), # 14 tab(s), Refills(s) 0, Pharmacy: [facility]/pharmacy #[id number], 157.5, cm, 06/19/23 9:21:00 EST, Height/Length Dosing, 92.6, kg, 06/19/23 9:21:00 EST, Weight Dosing HgbA1c Lab Specimen Collect [id number] Urine Culture 2. Left lower quadrant pain (R10.32: Left lower quadrant pain) urinalysis in office today. pt states she is having very similar symptoms when she was hospitalized for septic UTI. will treat with Cipro since we are going into holiday Ordered: ciprofloxacin, 500 mg = 1 tab(s), Oral, q12hr, X 7 day(s), # 14 tab(s), Refills(s) 0, [id number] 157.5, cm, 06/19/23 9:21:00 EST, Height/Length Dosing, 92.6, kg, 06/19/23 9:21:00 EST, Weight Dosing Urine Culture Urnls Dip Stick Auto w/o Microscopy POC 31327 3. Left flank pain (R10.9: Unspecified abdominal pain) see above Ordered: ciprofloxacin, 500 mg = 1 tab(s), Oral, q12hr, X 7 day(s), # 14 tab(s), Refills(s) 0, [id number], 157.5, cm, 06/19/23 9:21:00 EST, Height/Length Dosing, 92.6, kg, 06/19/23 9:21:00 EST, Weight Dosing Urine Culture Urnls Dip Stick Auto w/o Microscopy POC 59097 4. BMI 37.0-37.9, adult (Z68.37: Body mass index [BMI] 37.0-37.9, adult) BMI education complete Ordered: ciprofloxacin, 500 mg = 1 tab(s), Oral, q12hr, X 7 day(s), # 14 tab(s), Refills(s) 0, Pharmacy: [facility]/pharmacy #[id number], 157.5, cm, 06/19/23 9:21:00 EST, Height/Length Dosing, 92.6, kg, 06/19/23 9:21:00 EST, Weight Dosing Urine Culture 5. Non-smoker (Z78.9: Other specified health status) continue not smoking Ordered: ciprofloxacin, 500 mg = 1 tab(s), Oral, q12hr, X 7 day(s), # 14 tab(s), Refills(s) 0, Pharmacy: [facility]/pharmacy #[id number], 157.5, cm, 06/19/23 9:21:00 EST, Height/Length Dosing, 92.6, kg, 06/19/23 9:21:00 EST, Weight Dosing Lab Specimen Collect [id number] Urine Culture Follow-up No qualifying data available Problem List/Past Medical History Ongoing Acid reflux Anxiety Asymptomatic microscopic hematuria Breast cancer Cancer Chronic depression Chronic sinusitis Depression Deviated nasal septum Diabetes Diverticula of intestine Elevated hemoglobin A1c Fatty liver Flank pain Frequent urination Hidradenitis History of - multiple allergies History of skin cancer Hypertension Hypertrophy of nasal turbinates Hypothyroid Hypothyroidism IBS (irritable bowel syndrome) Kidney infection Left flank pain Left lower quadrant pain Lichen planus Lymphedema Microhematuria Mixed incontinence Other chronic cystitis without hematuria Prurigo nodularis Sepsis secondary to UTI Straining to void Stress incontinence Type 2 diabetes mellitus Ureteral duplication, left Urge incontinence UTI symptoms Weak urine stream Historical No qualifying data Procedure/Surgical History Bilateral mastectomy, Cervical biopsy, Chemotherapy, Colonoscopy, Excision of axillary lymph node, History of nasal sinus surgery, Ot (more content not included)... [facility] Comment on above: Result Comment: Elec tronically Signed By: Jessica Doe\.br\Date and Time Signed: 06/19/23 09:49 EST [id number] 06-19-2023 HbA1c (Bld) [Mass fraction] 7.9 % High <=5.9 [facility] Comment on above: Performed By: #### 7 [id number] ####[facility] [id number] [place] [address] Formson 06-01-2023 Forms [id number] #1.00TIFF [facility] Population Healthon 05-31-20 Population Health Case Information Case Priority: None Programs: -- Referral Source: Manager Information Referral Reason: Care coordination Case Type: Transition Care Management Risk Score: -- Case Status: Enrolled (May 15, 2023) Date Assigned: May 15, 2023 Assigned By: Nishi Stephens RN Date Enrolled: May 15, 2023 Assigned Primary Personnel: Nishi Stephens RN Assigned Secondary Personnel: Susan Clark RN; [place] Case Physician: Jessica Doe Problems Ongoing Acid reflux Anxiety Asymptomatic microscopic hematuria Breast cancer Cancer Chronic depression Chronic sinusitis Depression Deviated nasal septum Diabetes Diverticula of intestine Elevated hemoglobin A1c Fatty liver Flank pain Frequent urination Hidradenitis History of - multiple allergies History of skin cancer Hypertension Hypertrophy of nasal turbinates Hypothyroid Hypothyroidism IBS (irritable bowel syndrome) Kidney infection Lichen planus Lymphedema Microhematuria Mixed incontinence Other chronic cystitis without hematuria Prurigo nodularis Sepsis secondary to UTI Straining to void Stress incontinence Type 2 diabetes mellitus Ureteral duplication, left Urge incontinence UTI symptoms Weak urine stream Historical No qualifying data Procedure/Surgical History Bilateral mastectomy, Cervical biopsy, Chemotherapy, Colonoscopy, Excision of axillary lymph node, History of nasal sinus surgery, Other. Home Medications amLODIPine 10 mg Tab, 10 mg= 1 tab(s), Oral, Daily, 3 refills atorvastatin 20 mg Tab, 20 mg= 1 tab(s), Oral, Daily citalopram 20 mg Tab, 20 mg= 1 tab(s), Oral, Daily, 3 refills Farxiga 5 mg oral tablet, 5 mg= 1 tab(s), Oral, Daily, 3 refills gabapentin 300 mg Cap, 300 mg= 1 cap(s), Oral, TID glipiZIDE 5 mg Tab, 5 mg= 1 tab(s), Oral, Daily, 3 refills hydrochlorothiazide- losartan 25 mg-100 mg Tab, 1 tab(s), Oral, Daily, 1 refills Natural Thyroid, 0 oxaprozin 600 mg Tab, 600 mg= 1 tab(s), Oral, BID tizanidine 4 mg oral capsule, 4 mg= 1 cap(s), Oral, Daily Allergies Latex Macrodantin (Unknown) Percocet 10/325 (Vomiting) Vicodin (Vomiting) sulfamethoxazole (Rash) Social History Alcohol - Low Risk, 02/13/2012 Current, 1-2 times per month, 08/06/2020 Substance Abuse - Denies Substance Abuse, 02/13/2012 Tobacco - Denies Tobacco Use, 02/13/2012 Never (less than 100 in lifetime) Tobacco Use:. Never Smokeless Tobacco Use:. Household tobacco concerns: No., 05/22/2023 Family History Cancer: Mother. Congenital heart disease: Father. Diabetes mellitus: Mother and Father. Primary malignant neoplasm of skin: Mother. Stroke: Grandparent. Screenings and Assessments 05/15/23 10:00:00 Result Name Value Comment Phone Call Monitoring Consent Agreed to continue call Phone Verification Patient Information Full name, street address and date of verified CM Program Enrollment Provides verbal consent for enrollment Goals and Interventions Care Plan Progress Note Called patient for continued TCM #3 follow-up. Patient states she is feeling better, still experiencing a tiny bit of tiredness and brain fog . Patient states FBS remains elevated at 180-200, patient states she has reduced carbohydrates and increased her protein level, trying to 40 gm carbs each meal. Patient states weight fluctuates between 200-204#. Patient has follow-up with Dr. Grace for thyroid check in 2 weeks and will discuss weight. Patient asking if second set of FMLA papers were completed for time in hospital, states employer has intermittent paper work only. Communication Events Date: May 31, 2023 Method: Phone call Type: Outbound Duration (min): 5 Outcome: Case discussion Contact Type: mortgage loan coordinator Contact Name: Nishi Stephens RN Notes: TCM #3, see FT summary note. Created By: Nishi Stephens RN Date: May 26, 2023 Method: Phone call Type: Outbound Duration (min): 1 Outcome: Left message-voicemail Contact Type: mortgage loan coordinator Contact Name: Susan Clark RN Notes: Attempted to call patient for TCM call #2, no answer. Left message for patient to call with status update. Created By: Susan Clark RN Date: May 15, 2023 Method: Phone call Type: Inbound Duration (min): 5 Outcome: Case discussion Contact Type: Patient Contact Name: MARIA M MCKEON Notes: TCM #1, see FT summary note Created By: Nishi Stephens RN Date: May 15, 2023 Method: Phone call Type: Outbound Duration (min): -- Outcome: Left message-voicemail Contact Type: mortgage loan coordinator Contact Name: Nishi Stephens RN Notes: Attempted to call patient for TCM #1, no answer, left message asking for a return call. Created By: Angelo COLINDRES, Nishi [facility] Formson 05-23-2023 Forms [id number] #1.00TIFF [facility] Ambulatory Visit Summaryon 1 Ambulatory Visit Summary MARIA M MCKEON :1970 Visit Date:05/22/2023 Ambulatory Visit Instructions Your Diagnosis Sepsis secondary to UTI Diabetes BMI 36.0-36.9,adult Non-smoker Urinary tract infection, site not specified Your Care Team Attending Physician - Jessica Doe Primary Care Physician - Jessica Doe This Is Your Medications [place] [facility] [place] (Natural Thyroid) amlodipine (amLODIPine 10 mg Tab) atorvastatin (atorvastatin 20 mg Tab) citalopram (citalopram 20 mg Tab) dapagliflozin (Farxiga 5 mg oral tablet) gabapentin (gabapentin 300 mg Cap) glipiZIDE (glipiZIDE 5 mg Tab) hydrochlorothiazide- losartan (hydrochlorothiazide -losartan 25 mg-100 mg Tab) oxaprozin (oxaprozin 600 mg Tab) tizanidine (tizanidine 4 mg oral capsule) Procedures Performed Bilateral mastectomy, Cervical biopsy, Chemotherapy, Colonoscopy, Excision of axillary lymph node, History of nasal sinus surgery, Other. Discharge Vitals Heart Rate (Peripheral) 68 Respiratory Rate 18 Blood Pressure 110/72 Height 157.5 cm Height 62 in Weight 92.6 kg Weight 203.72 lb BMI 37.33 What to do next Scheduled Follow-Up Appointments Monday 9:20 AM EST With: Jessica Doe Where: [facility] Medicine [facility] Family Medicine Office/Clini c Noteon 05-22-2023 Family Medicine Office/Clinic Note HPI Staff Maria M is a 52 year old female presenting for follow up for UTI/Sepsis Pt was seen on 05/16/23 pt continued to feel fatigued and dizzy, FMLA paperwork to be filled out Questions/Concerns: Pt states last week all she did was sleep due to having dizziness. Last dose of ATB was yesterday morning. She states she does still have some fatigue but feeling better than ANNELISE. Pt states she has made a diet change and she has noted her Blood sugars were running in the 300's this morning is 174 and then others have running in 200's. pt states sometimes her vision will be off she will have to take her glasses off because she can't see. She has had at diabetic eye exam recently and was told everything was fine. Pt states she will have intermittent tachycardia this was happening before she was sick. Pt states she took a covid test 05/19/23 was negative due to the dizziness she was having. History of Present Illness pt presents today for follow up on UTI/sepsis. pt was admitted to hospital. at last visit was still very fatigued and blood sugars were all over the place Review of Systems PHQ Score Initial Depression Screen Score: 0 ROS - Provider Constitutional: no fever, no chills, no sweats, no fatigue Respiratory: no shortness of breath, no cough, no orthopnea, no wheezing. Cardiovascular: no chest pain, no palpitations, no edema. Neurologic: no headache, no dizziness, no numbness, no weakness. Physical Exam Vitals & Measurements HR: 68(Peripheral) RR: 18 BP: 110/72 SpO2: 98% HT: 62 in HT: 157.5 cm WT: 92.6 kg WT: 203.72 lb BMI: 37.33 General: alert, no acute distress ENMT: oral mucosa moist, no pharyngeal erythema or exudate Cardiovascular: regular rate and rhythm, normal peripheral perfusion Respiratory: Lungs CTA, respirations non labored Extremities: no deformity, no trauma Neurological: oriented x 4, LOC appropriate for age, CN II-XII intact, motor strength equal & normal bilaterally, speech normal Assessment/Plan 1. Sepsis secondary to UTI (A41.9: Sepsis, unspecified organism) pt presents for follow up . was admitted to hospital for UTI sepsis. pt was still very fatigued and weak last week. she stayed home from work last week. pt states she slept pretty much the whole week. she is feeling better today. she will return to work today. pt will continue monitoring her blood sugars. and continue staying hydrated. pt will return in 4 weeks to have HGBA1C checked. will complete [facility] paperwork and fax to appropriate number. 2. Diabetes (E11.9: Type 2 diabetes mellitus without complications) will check HGBA1C in 4 weeks. BS's running high since being sick. 3. BMI 36.0-36.9,adult (Z68.36: Body mass index [BMI] 36.0-36.9, adult) BMI education complete 4. Non-smoker (Z78.9: Other specified health status) continue not smoking Urinary tract infection, site not specified (N39.0: Urinary tract infection, site not specified) Follow-up No qualifying data available Problem List/Past Medical History Ongoing Acid reflux Anxiety Asymptomatic microscopic hematuria Breast cancer Cancer Chronic depression Chronic sinusitis Depression Deviated nasal septum Diabetes Diverticula of intestine Elevated hemoglobin A1c Fatty liver Flank pain Frequent urination Hidradenitis History of - multiple allergies History of skin cancer Hypertension Hypertrophy of nasal turbinates Hypothyroid Hypothyroidism IBS (irritable bowel syndrome) Kidney infection Lichen planus Lymphedema Microhematuria Mixed incontinence Other chronic cystitis without hematuria Prurigo nodularis Sepsis secondary to UTI Straining to void Stress incontinence Type 2 diabetes mellitus Ureteral duplication, left Urge incontinence UTI symptoms Weak urine stream Historical No qualifying data Procedure/Surgical History Bilateral mastectomy, Cervical biopsy, Chemotherapy, Colonoscopy, Excision of axillary lymph node, History of nasal sinus surgery, Other. Medications amLODIPine 10 mg Tab, 10 mg= 1 tab(s), Oral, Daily, 3 refills atorvastatin 20 mg Tab, 20 mg= 1 tab(s), Oral, Daily citalopram 20 mg Tab, 20 mg= 1 tab(s), Oral, Daily, 3 refills Farxiga 5 mg oral tablet, 5 mg= 1 tab(s), Oral, Daily, 3 refills gabapentin 300 mg Cap, 300 mg= 1 cap(s), Oral, TID glipiZIDE 5 mg Tab, 5 mg= 1 tab(s), Oral, Daily, 3 refills hydrochlorothiazide- losartan 25 mg-100 mg Tab, 1 tab(s), Oral, Daily, 1 refills Natural Thyroid, 0 oxaprozin 600 mg Tab, 600 mg= 1 tab(s), Oral, BID tizanidine 4 mg oral capsule, 4 mg= 1 cap(s), Oral, Daily Allergies Latex Macrodantin (Unknown) Percocet 10/325 (Vomiting) Vicodin (Vomiting) sulfamethoxazole (Rash) Social History Alcohol - Low Risk, 02/13/2012 Current, 1-2 times per month, 08/06/2020 Substance Abuse - Denies Substance Abuse, 02/13/2012 Tobacco - Denies Tobacco Use, 02/13/2012 Never (less than 100 in lifetime) Tobacco Use:. Never Smokeless Tobacco Use:. Househ (more content not included)... [facility] Comment on above: Result Comment: Elec tronically Signed By: Jessica Doe\.br\Date and Time Signed: 05/22/23 09:34 EDT Provider Letteron 05-22-2023 Provider Letter May 22, 2023 MARIA M MCKEON [address] [place] [address] : 1970 To Whom It May Concern, Please excuse above patient from work. Date of Illness: From: 05.22.2023 To: 05.22.2023 May Return to Work On: 05.22.2023 Sincerely, JANE Chandler [address] [address] [facility] RAD - CT Reporton 05-17-2023 RAD - CT Report [id number] #[id number] [facility] Ambulatory Visit Summaryon 1 Ambulatory Visit Summary MARIA M MCKEON :1970 Visit Date:05/16/2023 Ambulatory Visit Instructions Your Diagnosis BMI 36.0-36.9,adult Non-smoker Your Care Team Attending Physician - Jessica Doe Primary Care Physician - Jessica Doe This Is Your Medications [place] [facility] [place] (Natural Thyroid) amlodipine (amLODIPine 10 mg Tab) atorvastatin (atorvastatin 20 mg Tab) citalopram (citalopram 20 mg Tab) dapagliflozin (Farxiga 5 mg oral tablet) gabapentin (gabapentin 300 mg Cap) glipiZIDE (glipiZIDE 5 mg Tab) hydrochlorothiazide- losartan (hydrochlorothiazide -losartan 25 mg-100 mg Tab) oxaprozin (oxaprozin 600 mg Tab) tizanidine (tizanidine 4 mg oral capsule) Procedures Performed Bilateral mastectomy, Cervical biopsy, Chemotherapy, Colonoscopy, Excision of axillary lymph node, History of nasal sinus surgery, Other. Discharge Vitals Heart Rate (Peripheral) 98 Respiratory Rate 18 Blood Pressure 118/86 Height 157.5 cm Height 62 in Weight 91.7 kg Weight 201.74 lb BMI 36.97 Medications What How Much When Why Instructions Unchanged amlodipine (amLODIPine 10 mg Tab) 1 Tablets By Mouth Every day Unchanged atorvastatin (atorvastatin 20 mg Tab) 1 Tablets By Mouth Every day BMI 37.0-37.9, adult Non-smoker Unchanged citalopram (citalopram 20 mg Tab) 1 Tablets By Mouth Every day Unchanged dapagliflozin (Farxiga 5 mg oral tablet) 1 Tablets By Mouth Every day Unchanged gabapentin (gabapentin 300 mg Cap) 1 Capsules By Mouth 3 times a day Unchanged glipiZIDE (glipiZIDE 5 mg Tab) 1 Tablets By Mouth Every day Unchanged hydrochlorothiazide- losartan (hydrochlorothiazide -losartan 25 mg-100 mg Tab) 1 Tablets By Mouth Every day BMI 37.0-37.9, adult Non-smoker Unchanged Misc Prescription (Natural Thyroid) 0 Unchanged oxaprozin (oxaprozin 600 mg Tab) 1 Tablets By Mouth 2 times a day Unchanged tizanidine (tizanidine 4 mg oral capsule) 1 Capsules By Mouth Every day Allergies Latex Macrodantin (Unknown) Percocet 10/325 (Vomiting) Vicodin (Vomiting) sulfamethoxazole (Rash) Problems Ongoing - Any problem that you are currently receiving treatment for. Acid reflux Anxiety Asymptomatic microscopic hematuria Breast cancer Cancer Chronic depression Chronic sinusitis Depression Deviated nasal septum Diabetes Diverticula of intestine Elevated hemoglobin A1c Fatty liver Flank pain Frequent urination Hidradenitis History of - multiple allergies History of skin cancer Hypertension Hypertrophy of nasal turbinates Hypothyroid Hypothyroidism IBS (irritable bowel syndrome) Kidney infection Lichen planus Lymphedema Microhematuria Mixed incontinence Other chronic cystitis without hematuria Prurigo nodularis Straining to void Stress incontinence Type 2 diabetes mellitus Ureteral duplication, left Urge incontinence UTI symptoms Weak urine stream Normal [facility] Family Medicine Office/Clini c Noteon 05-16-2023 Family Medicine Office/Clinic Note HPI Staff Maria M is a 52 year old female presenting to TCM follow up TCM: Hospital: [facility] Admission date: 05/13/23 Discharge date: 05/14/23 Symptoms the patient presented with: 05/12/23 was feeling shaky and overheated, that night had 102 fever and Monday morning continues with feeling shaky. flank pain, urinary frequency. Diagnosis: UTI/Sepsis New medications: Levaquin 500mg x 7 days Current concerns: just started atb yesterday, pt states she went to work yesterday and ended up leaving work yesterday and stayed home today. Feeing light headed and feeling brain fog and very fatigued. pt had been drinking 3- 32 oz bottles of water. She has intermittent tachycardia mostly when she stands up to do something with minimal exertion, she states they did notice this in the hospital and once she has fluids it seemed to subside. Pt brought [facility] paperwork if that could be filled out History of Present Illness pt presents today for TCM follow up. pt was admitted for UTI/Spesis Review of Systems PHQ Score Initial Depression Screen Score: 0 ROS - Provider Constitutional: no fever, no chills, no sweats, yes fatigue, light heaaded, nauses Respiratory: no shortness of breath, no cough, no orthopnea, no wheezing. Cardiovascular: no chest pain, no palpitations, no edema. tachycardia with exertion Neurologic: no headache, no dizziness, no numbness, no weakness. Physical Exam Vitals & Measurements HR: 98(Peripheral) RR: 18 BP: 118/86 SpO2: 98% HT: 62 in HT: 157.5 cm WT: 91.7 kg WT: 201.74 lb BMI: 36.97 General: alert, no acute distress ENMT: oral mucosa moist, no pharyngeal erythema or exudate Cardiovascular: regular rate and rhythm, normal peripheral perfusion Respiratory: Lungs CTA, respirations non labored Extremities: no deformity, no trauma Neurological: oriented x 4, LOC appropriate for age, CN II-XII intact, motor strength equal & normal bilaterally, speech normal Assessment/Plan 1. Sepsis secondary to UTI (A41.9: Sepsis, unspecified organism) pt presents today for TCM follow up. pt was admitted for IV treatment of UTI with sepsis. pt is still not feeling the best. fatigue and dizziness. she tried to go to work yesterday but did not feel good so she went home. will keep her home the rest of the week so she can rest and heal. will complete [employer] paper work . she will return to office on Monday. pt is very emotional during visit. 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 and she is struggling that this illness has knocked her down and she isn't bouncing back as fast as she would like. all questions answered. RTC monday 2. BMI 36.0-36.9,adult (Z68.36: Body mass index [BMI] 36.0-36.9, adult) BMI education complete Ordered: TCM Trans care mgmt 7 day disch [id number] 3. Non-smoker (Z78.9: Other specified health status) continue not smoking Ordered: TCM Trans care mgmt 7 day disch 48771 Urinary tract infection, site not specified (N39.0: Urinary tract infection, site not specified) see above Follow-up No qualifying data available Problem List/Past Medical History Ongoing Acid reflux Anxiety Asymptomatic microscopic hematuria Breast cancer Cancer Chronic depression Chronic sinusitis Depression Deviated nasal septum Diabetes Diverticula of intestine Elevated hemoglobin A1c Fatty liver Flank pain Frequent urination Hidradenitis History of - multiple allergies History of skin cancer Hypertension Hypertrophy of nasal turbinates Hypothyroid Hypothyroidism IBS (irritable bowel syndrome) Kidney infection Lichen planus Lymphedema Microhematuria Mixed incontinence Other chronic cystitis without hematuria Prurigo nodularis Sepsis secondary to UTI Straining to void Stress incontinence Type 2 diabetes mellitus Ureteral duplication, left Urge incontinence UTI symptoms Weak urine stream Historical No qualifying data Procedure/Surgical History Bilateral mastectomy, Cervical biopsy, Chemotherapy, Colonoscopy, Excision of axillary lymph node, History of nasal sinus surgery, Other. Medications amLODIPine 10 mg Tab, 10 mg= 1 tab(s), Oral, Daily, 3 refills atorvastatin 20 mg Tab, 20 mg= 1 tab(s), Oral, Daily citalopram 20 mg Tab, 20 mg= 1 tab(s), Oral, Daily, 3 refills Farxiga 5 mg oral tablet, 5 mg= 1 tab(s), Oral, Daily, 3 refills gabapentin 300 mg Cap, 300 mg= 1 cap(s), Oral, TID glipiZIDE 5 mg Tab, 5 mg= 1 tab(s), Oral, Daily, 3 refills hydrochlorothiazide- losartan 25 mg-100 mg Tab, 1 tab(s), Oral, Daily, 1 refills Natural Thyroid, 0 oxaprozin 600 mg Tab, 600 mg= 1 tab(s), Oral, BID tizanidine 4 mg oral capsule, 4 mg= 1 cap(s), Oral, Daily Allergies Latex Macrodantin (Unknown) Percocet 10/325 (Vomiting) Vicodin (Vomiting) sulfamethoxazole (Rash) Social History Alcohol - Low Risk, 02/13/2012 Current, 1-2 times per month, 08/06/2020 Substance Abuse - Denies Substance Abuse, 02/13/2012 Tobacco - Denies Tobacco Use, 02/13/2012 Never (less than 100 in (more content not included)... Normal [facility] Comment on above: Result Comment: Elec tronically Signed By: Jessica Doe\.br\Date and Time Signed: 05/16/23 12:17 EDT [facility] 05-15-20 [facility] Case Information Case Priority: None Programs: -- Referral Source: Manager Information Referral Reason: Care coordination Case Type: Transition Care Management Risk Score: -- Case Status: Enrolled (May 15, 2023) Date Assigned: May 15, 2023 Assigned By: Nishi Stephens RN Date Enrolled: May 15, 2023 Assigned Primary Personnel: Nishi Stephens RN Assigned Secondary Personnel: -- Case Physician: Jessica Doe Problems Ongoing Acid reflux Anxiety Asymptomatic microscopic hematuria Breast cancer Cancer Chronic depression Chronic sinusitis Depression Deviated nasal septum Diabetes Diverticula of intestine Elevated hemoglobin A1c Fatty liver Flank pain Frequent urination Hidradenitis History of - multiple allergies History of skin cancer Hypertension Hypertrophy of nasal turbinates Hypothyroid Hypothyroidism IBS (irritable bowel syndrome) Kidney infection Lichen planus Lymphedema Microhematuria Mixed incontinence Other chronic cystitis without hematuria Prurigo nodularis Straining to void Stress incontinence Type 2 diabetes mellitus Ureteral duplication, left Urge incontinence UTI symptoms Weak urine stream Historical No qualifying data Procedure/Surgical History Bilateral mastectomy, Cervical biopsy, Chemotherapy, Colonoscopy, Excision of axillary lymph node, History of nasal sinus surgery, Other. Home Medications amLODIPine 10 mg Tab, 10 mg= 1 tab(s), Oral, Daily, 3 refills atorvastatin 20 mg Tab, 20 mg= 1 tab(s), Oral, Daily citalopram 20 mg Tab, 20 mg= 1 tab(s), Oral, Daily, 3 refills Farxiga 5 mg oral tablet, 5 mg= 1 tab(s), Oral, Daily, 3 refills gabapentin 300 mg Cap, 300 mg= 1 cap(s), Oral, TID glipiZIDE 5 mg Tab, 5 mg= 1 tab(s), Oral, Daily, 3 refills hydrochlorothiazide- losartan 25 mg-100 mg Tab, 1 tab(s), Oral, Daily, 1 refills Natural Thyroid, 0 oxaprozin 600 mg Tab, 600 mg= 1 tab(s), Oral, BID tizanidine 4 mg oral capsule, 4 mg= 1 cap(s), Oral, Daily Allergies Latex Macrodantin (Unknown) Percocet 10325 (Vomiting) Vicodin (Vomiting) sulfamethoxazole (Rash) Social History Alcohol - Low Risk, 02/13/2012 Current, 1-2 times per month, 08/06/2020 Substance Abuse - Denies Substance Abuse, 02/13/2012 Tobacco - Denies Tobacco Use, 02/13/2012 Never (less than 100 in lifetime) Tobacco Use:. Never Smokeless Tobacco Use:. Household tobacco concerns: No., 03/03/2023 Family History Cancer: Mother. Congenital heart disease: Father. Diabetes mellitus: Mother and Father. Primary malignant neoplasm of skin: Mother. Stroke: Grandparent. Screenings and Assessments 05/15/23 10:00:00 Result Name Value Comment Phone Call Monitoring Consent Agreed to continue call Phone Verification Patient Information Full name, street address and date of verified CM Program Enrollment Provides verbal consent for enrollment Goals and Interventions Care Plan Progress Note Admit Date: 05/13/23 [facility] Date of Discharge: 05/14/23 Follow-up appointment scheduled? yes, 05/17/23 at [facility] with Katrina Dasilva Did you understand your discharge instructions? yes Are you able to follow them? yes Did you receive new medications? yes, Levaquin 500 mg daily x 7 days Have you filled the Rx's? yes Are you taking them as prescribed? yes Are you having difficulty eating or swallowing your pills? no Are you having any stomach upset, diarrhea or constipation? yes, nausea How are you sleeping? good Are you having any pain? no Do you have everything you need at home to care for yourself? yes Do you have Home Health? no Called patient for Transitional Care Management following hospitalization at [facility] for UTI, sepsis, hypokalemia and weakness. Reviewed discharge instructions and medications reconciled with patient, discharge list and EHR. Patient states she is feeling nauseated due to Levaquin, advised to take with food and swee it that imrpoves stomach upset. Patient in agreement. Denies any concerns with urination and has returned to work today. TCM services explained and direct phone number given. 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 Created By: Nishi Stephens RN [facility] Pre-Certification Formon Pre-Certification Form [id number] #[id number]:[id number] Normal [facility] COVID Quick Testingon 2022 Result Negative [facility] Other SARS-CoV-2 (COVID-19) RNA NA A+probe Ql (Resp)on 03-13-2023 SARS-CoV-2 (COVID-19) RNA VON+probe Ql (Unsp spec) Negative [facility] Other Family Medicine Office/Clini c Noteon 03-06-2023 Family Medicine Office/Clinic Note HPI Staff Maria M is a 52 year old female presenting to [facility] care Establish Care: History: Any previous diagnosis: Gerd, Anxiety/Depression, HTN, IBS, Type 2 diabetes, Hypothyroidism, etmg gene History of seeing any specialist: Dr Grider infectious disease, Dr Felix Ballard doctor once a year. When was your last doctors visit: Last provider: Dr Christianson Any recent labs:03/18/22 12/16/22 A1c 6.5 , 02/13/23 JAYDA: 9 PHQ-9: 13 Health Maintenance UTD: Colonoscopy: 2020 normal Mammogram: Bilateral Mastectomy Pelvic/Pap: 2022 normal Acute: Current issues/complaints: Intermittent Elevated Blood pressure, symptoms include headaches, facial flushing, palpation's and will have intermittent sharp chest pain lasting 30 seconds with quick movements getting up to go do things. Pt feels it maybe related to panic attack and usually she is in a stressful situation. Blood sugars are running 180-200's pt states she hasn't been eating the best and knows she needs to make a dietary change. Vision change has been getting worse over the last few months. Pt went to see soccer ball assembler on Monday and diabetic eye exam was normal . Vision will go in and out and become blurry pt states this has happened before when she has had panic attacks in the past. Pt states labs on A1c 02/13/23 was 7.6 Weight management: pt has tried weight watchers, several diet plans pt would like to talk about options. History of Present Illness pt presents today to go over recent lab work done through work. needs physical form filled out Review of Systems PHQ Score Initial Depression Screen Score: 1 ROS - Provider Constitutional: no fever, no chills, no sweats, no fatigue Respiratory: no shortness of breath, no cough, no orthopnea, no wheezing. Cardiovascular: no chest pain, no palpitations, no edema. Neurologic: no headache, no dizziness, no numbness, no weakness. Physical Exam Vitals & Measurements HR: 78(Peripheral) RR: 18 BP: 144/98 SpO2: 99% HT: 62 in HT: 157.5 cm WT: 94.0 kg WT: 206.8 lb BMI: 37.89 General: alert, no acute distress ENMT: oral mucosa moist, no pharyngeal erythema or exudate Cardiovascular: regular rate and rhythm, normal peripheral perfusion Respiratory: Lungs CTA, respirations non labored Extremities: no deformity, no trauma Neurological: oriented x 4, LOC appropriate for age, CN II-XII intact, motor strength equal & normal bilaterally, speech normal Assessment/Plan 1. Type 2 diabetes mellitus (E11.9: Type 2 diabetes mellitus without complications) reviewed pt most recent lab results HGBA1C is elevated. will order Ozempic to manage diabetes and help with weight loss. pt to return in 4 weeks for follow up. will redraw HGBA1C in 3 month (3 months from lab draw at work) 2. Elevated hemoglobin A1c (R73.09: Other abnormal glucose) see above. will redraw 3 months 3. Hypertension (I10: Essential (primary) hypertension) BP elevated in office today and pt states it was also elevated when she had it checked for physical at work will increase meds. RTC 4 weeks. pt to monitor BP at home 4. BMI 37.0-37.9, adult (Z68.37: Body mass index [BMI] 37.0-37.9, adult) BMI education complete 5. Non-smoker (Z78.9: Other specified health status) continue not smoking Follow-up No qualifying data available Problem List/Past Medical History Ongoing Acid reflux Anxiety Asymptomatic microscopic hematuria Breast cancer Cancer Chronic depression Chronic sinusitis Depression Deviated nasal septum Diabetes Diverticula of intestine Elevated hemoglobin A1c Fatty liver Flank pain Frequent urination Hidradenitis History of - multiple allergies History of skin cancer Hypertension Hypertrophy of nasal turbinates Hypothyroid Hypothyroidism IBS (irritable bowel syndrome) Kidney infection Lichen planus Lymphedema Microhematuria Mixed incontinence Other chronic cystitis without hematuria Prurigo nodularis Straining to void Stress incontinence Type 2 diabetes mellitus Ureteral duplication, left Urge incontinence UTI symptoms Weak urine stream Historical No qualifying data Procedure/Surgical History Bilateral mastectomy, Cervical biopsy, Chemotherapy, Colonoscopy, Excision of axillary lymph node, History of nasal sinus surgery, Other. Medications amLODIPine 10 mg Tab, 10 mg= 1 tab(s), Oral, Daily, 3 refills atorvastatin 20 mg Tab, 20 mg= 1 tab(s), Oral, Daily citalopram 20 mg Tab, 20 mg= 1 tab(s), Oral, Daily, 3 refills Farxiga 5 mg oral tablet, 5 mg= 1 tab(s), Oral, Daily, 3 refills gabapentin 300 mg Cap, 300 mg= 1 cap(s), Oral, TID glipiZIDE 5 mg Tab, 5 mg= 1 tab(s), Oral, Daily, 3 refills hydrochlorothiazide- losartan 25 mg-100 mg Tab, 1 tab(s), Oral, Daily, 1 refills nabumetone 500 mg Tab, 1000 mg= 2 tab(s), Oral, Daily Natural Thyroid, 0 Ozempic 2 mg/3 mL (0.25 mg or 0.5 mg dose) subcutaneous solution, 0.25 mg, SubCutaneous, qWeek tizanidine 4 mg oral capsule, 4 (more content not included)... Normal [facility] Comment on above: Result Comment: Elec tronically Signed By: Jessica Doe\.br\Date and Time Signed: 03/06/23 10:00 EDT Lab Reportson 03-06-2023 Lab Reports [id number] #[id number]:127 Normal [facility] Ambulatory Visit Summaryon 0 03-03-2023 Ambulatory Visit Summary MARIA M MCKEON :1970 Visit Date:03/03/2023 Ambulatory Visit Instructions Your Diagnosis Type 2 diabetes mellitus Elevated hemoglobin A1c Hypertension BMI 37.0-37.9, adult Non-smoker Your Care Team Attending Physician - Jessica Doe Primary Care Physician - Jessica Doe This Is Your Medications [place] [facility] [place]Natural Thyroid) amlodipine (amLODIPine 10 mg Tab) atorvastatin (atorvastatin 20 mg Tab) citalopram (citalopram 20 mg Tab) dapagliflozin (Farxiga 5 mg oral tablet) gabapentin (gabapentin 300 mg Cap) glipiZIDE (glipiZIDE 5 mg Tab) hydrochlorothiazide- losartan (hydrochlorothiazide -losartan 12.5 mg-100 mg oral tablet) hydrochlorothiazide- losartan (hydrochlorothiazide -losartan 25 mg-100 mg Tab) nabumetone (nabumetone 500 mg Tab) semaglutide (Ozempic 2 mg/3 mL (0.25 mg or 0.5 mg dose) subcutaneous solution) tizanidine (tizanidine 4 mg oral capsule) Procedures Performed Bilateral mastectomy, Cervical biopsy, Chemotherapy, Colonoscopy, Excision of axillary lymph node, History of nasal sinus surgery, Other. Discharge Vitals Heart Rate (Peripheral) 78 Respiratory Rate 18 Blood Pressure 144/98 Height 62 in Height 157.5 cm Weight 206.8 lb Weight 94.0 kg BMI 37.89 What to do next Scheduled Follow-Up Appointments Monday 3:20 PM EDT With: Jessica Doe Where: [facility] Normal [facility] Mononucleosis Test, [place] 0 02-22-2023 Heterophile Ab LA Ql (S) Negative [facility] Other Quick Strepon 02-22-2023 S. pyogenes Org specific cx Ql (Throat) Negative [facility] Other Quick Strep [facility] Other EBS A1C with Estimated Ave Rach luon 02-13-2023 Glucose [Mass/Vol] 171 mg/dL Normal [facility] Comment on above: Result Comment: PERF ORMED BY: [place] [address] PATHOLOGIST BENEFITS ADMINISTRATOR ADRIENNE DRAPER M.D. Performed By: #### A SO, EBVNA, EBVEAG, EBV VCAIGG, EBV VCAIGM #### [facility] , #### CMP, ESR, CRP, CBC #### [address] HbA1c (Bld) [Mass fraction] 7.6 % High 4.3-5.6 [facility] Comment on above: Result Comment: Incr eased risk for diabetes: 5.7 - 6.4 diabetes: >6.4 glycemic control for adults with diabetes: <7.0 Performed By: #### A SO, EBVNA, EBVEAG, EBV VCAIGG, EBV VCAIGM #### [facility] , #### CMP, ESR, CRP, CBC #### [facility] [address] [place] [address] [place] Employee Comp Metabolic Pane yadira 02-13-2023 Albumin [Mass/Vol] 4.2 g/dL Normal 3.5-5.7 [facility] Comment on above: Performed By: #### A SO, EBVNA, EBVEAG, EBV VCAIGG, EBV VCAIGM #### [facility] , #### CMP, ESR, CRP, CBC #### [address] Albumin/Globulin [Mass ratio] 1.5 {ratio} Normal [facility] Comment on above: Performed By: #### A SO, EBVNA, EBVEAG, EBV VCAIGG, EBV VCAIGM #### [facility] , #### CMP, ESR, CRP, CBC #### [address] ALP [Catalytic activity/Vol] 59 U/L Normal 34-104 [facility] Comment on above: Performed By: #### A SO, EBVNA, EBVEAG, EBV VCAIGG, EBV VCAIGM #### [facility] , #### CMP, ESR, CRP, CBC #### [address] ALT [Catalytic activity/Vol] 17 U/L Normal 7-52 [facility] Comment on above: Performed By: #### A SO, EBVNA, EBVEAG, EBV VCAIGG, EBV VCAIGM #### [facility] , #### CMP, ESR, CRP, CBC #### [address] Anion gap [Moles/Vol] 13.8 mmol/L Normal 6.0-15.0 [facility] Comment on above: Performed By: #### A SO, EBVNA, EBVEAG, EBV VCAIGG, EBV VCAIGM #### [facility] , #### CMP, ESR, CRP, CBC #### [address] AST [Catalytic activity/Vol] 27 U/L Normal 13-39 [facility] Comment on above: Performed By: #### A SO, EBVNA, EBVEAG, EBV VCAIGG, EBV VCAIGM #### [facility] , #### CMP, ESR, CRP, CBC #### [address] Bilirubin [Mass/Vol] 0.5 mg/dL Normal 0.3-1.[address] [facility] Comment on above: Performed By: #### A SO, EBVNA, EBVEAG, EBV VCAIGG, EBV VCAIGM #### [facility] , #### CMP, ESR, CRP, CBC #### [facility] [address] [place] [address] Calcium [Mass/Vol] 9.2 mg/dL Normal 8.6-10.3 [facility] Comment on above: Performed By: #### A SO, EBVNA, EBVEAG, EBV VCAIGG, EBV VCAIGM #### [facility] , #### CMP, ESR, CRP, CBC #### [address] Chloride [Moles/Vol] 100 mmol/L Normal 98-[address] [facility] Comment on above: Performed By: #### A SO, EBVNA, EBVEAG, EBV VCAIGG, EBV VCAIGM #### [facility] , #### CMP, ESR, CRP, CBC #### [facility] [address] [place] [address] CO2 [Moles/Vol] 25.6 mmol/L Normal 21.0-31.0 [facility] Comment on above: Performed By: #### A SO, EBVNA, EBVEAG, EBV VCAIGG, EBV VCAIGM #### [facility] , #### CMP, ESR, CRP, CBC #### [facility] [address] [place] [address] Creatinine [Mass/Vol] 0.71 mg/dL Normal 0.60-1.20 [facility] Comment on above: Performed By: #### A SO, EBVNA, EBVEAG, EBV VCAIGG, EBV VCAIGM #### [facility] , #### CMP, ESR, CRP, CBC #### [address] GFR/1.73 sq M.predicted MDRD (S/P/Bld) [Vol rate/Area] mL/min/{1.73_m2} Normal [facility] Comment on above: Performed By: #### A SO, EBVNA, EBVEAG, EBV VCAIGG, EBV VCAIGM #### [facility] , #### CMP, ESR, CRP, CBC #### [address] Globulin (S) [Mass/Vol] 2.8 g/dL Normal [facility] Comment on above: Performed By: #### A SO, EBVNA, EBVEAG, EBV VCAIGG, EBV VCAIGM #### [facility] , #### CMP, ESR, CRP, CBC #### [address] Glucose [Mass/Vol] 131 mg/dL High 70-100 [facility] Comment on above: Result Comment: ADA recommended reference range Performed By: #### A SO, EBVNA, EBVEAG, EBV VCAIGG, EBV VCAIGM #### [facility] , #### CMP, ESR, CRP, CBC #### [address] Potassium [Moles/Vol] 3.4 mmol/L Low 3.5-5.1 [facility] Comment on above: Performed By: #### A SO, EBVNA, EBVEAG, EBV VCAIGG, EBV VCAIGM #### [facility] , #### CMP, ESR, CRP, CBC #### [address] Protein [Mass/Vol] 7.0 g/dL Normal 6.4-8.9 [facility] Comment on above: Performed By: #### A SO, EBVNA, EBVEAG, EBV VCAIGG, EBV VCAIGM #### [facility] , #### CMP, ESR, CRP, CBC #### [address] Sodium [Moles/Vol] 136 mmol/L Normal 136-145 [facility] Comment on above: Performed By: #### A SO, EBVNA, EBVEAG, EBV VCAIGG, EBV VCAIGM #### [facility] , #### CMP, ESR, CRP, CBC #### [address] Urea nitrogen [Mass/Vol] 20 mg/dL Normal 7-25 [facility] Comment on above: Performed By: #### A SO, EBVNA, EBVEAG, EBV VCAIGG, EBV VCAIGM #### [facility] , #### CMP, ESR, CRP, CBC #### [address] Employee Complete Blood Coun ton 02-13-2023 Basophils (Bld) [#/Vol] 0.0 10*3/uL Normal 0.0-0.2 [facility] Comment on above: Result Comment: PERF ORMED BY: [place] [address] PATHOLOGIST BENEFITS ADMINISTRATOR ADRIENNE DRAPER M.D. Performed By: #### P ILLAR LIPID, EBS A1C, PILLAR CBC, PILLAR CMP, PILLAR LDLD, PILLAR TSH #### [address] #### NICOTINE QUAL #### [facility] , Basophils/100 WBC (Bld) 0.4 % Normal . [facility] Comment on above: Performed By: #### P ILLAR LIPID, EBS A1C, PILLAR CBC, PILLAR CMP, PILLAR LDLD, PILLAR TSH #### [facility] [address] [place] [address] #### NICOTINE QUAL #### [facility] , Eosinophils (Bld) [#/Vol] 0.3 10*3/uL Normal 0.0-0.45 [facility] Comment on above: Performed By: #### P ILLAR LIPID, EBS A1C, PILLAR CBC, PILLAR CMP, PILLAR LDLD, PILLAR TSH #### [facility] [address] [place] [address] [place] #### NICOTINE QUAL #### [facility] , Eosinophils/100 WBC (Bld) 5.4 % Normal . [facility] Comment on above: Performed By: #### P ILLAR LIPID, EBS A1C, PILLAR CBC, PILLAR CMP, PILLAR LDLD, PILLAR TSH #### [facility] [address] [place] [address] [place] #### NICOTINE QUAL #### [facility] , Erythrocyte distribution width (RBC) [Ratio] 13.7 % Normal 11.9-15.3 [facility] Comment on above: Performed By: #### P ILLAR LIPID, EBS A1C, PILLAR CBC, PILLAR CMP, PILLAR LDLD, PILLAR TSH #### [place] [address] [place] #### NICOTINE QUAL #### [facility] , Hematocrit (Bld) [Volume fraction] 43.7 % Normal 34.0-46.4 [facility] Comment on above: Performed By: #### P ILLAR LIPID, EBS A1C, PILLAR CBC, PILLAR CMP, PILLAR LDLD, PILLAR TSH #### [address] #### NICOTINE QUAL #### [facility] , Hemoglobin (Bld) [Mass/Vol] 15.0 g/dL Normal 11.8-15.4 [facility] Comment on above: Performed By: #### P ILLAR LIPID, EBS A1C, PILLAR CBC, PILLAR CMP, PILLAR LDLD, PILLAR TSH #### [facility] [address] [place] [address] [place] #### NICOTINE QUAL #### [facility] , Lymphocytes (Bld) [#/Vol] 1.8 10*3/uL Normal 1.00-4.8 [facility] Comment on above: Performed By: #### P ILLAR LIPID, EBS A1C, PILLAR CBC, PILLAR CMP, PILLAR LDLD, PILLAR TSH #### [facility] [address] [place] [address] #### NICOTINE QUAL #### [facility] , Lymphocytes/100 WBC (Bld) 37.2 % Normal . [facility] Comment on above: Performed By: #### P ILLAR LIPID, EBS A1C, PILLAR CBC, PILLAR CMP, PILLAR LDLD, PILLAR TSH #### [facility] [address] [place] [address] #### NICOTINE QUAL #### [facility] , MCH (RBC) [Entitic mass] 28.9 pg Normal 24.7-34.3 [facility] Comment on above: Performed By: #### P ILLAR LIPID, EBS A1C, PILLAR CBC, PILLAR CMP, PILLAR LDLD, PILLAR TSH #### [address] #### NICOTINE QUAL #### [facility] , MCV (RBC) [Entitic vol] 84.0 fL Normal 80-100 F [facility] Comment on above: Performed By: #### P ILLAR LIPID, EBS A1C, PILLAR CBC, PILLAR CMP, PILLAR LDLD, PILLAR TSH #### [facility] [address] [place] [address] #### NICOTINE QUAL #### [facility] , Mean Corpuscular HGB Conc 34.4 g/dL Normal 32.0-35.0 [facility] Comment on above: Performed By: #### P ILLAR LIPID, EBS A1C, PILLAR CBC, PILLAR CMP, PILLAR LDLD, PILLAR TSH #### [facility] [address] [place] [address] [place] #### NICOTINE QUAL #### [facility] , Monocytes (Bld) [#/Vol] 0.5 10*3/uL Normal 0.0-0.8 [facility] Comment on above: Performed By: #### P ILLAR LIPID, EBS A1C, PILLAR CBC, PILLAR CMP, PILLAR LDLD, PILLAR TSH #### [facility] [address] [place] [address] [place] #### NICOTINE QUAL #### [facility] , Monocytes/100 WBC (Bld) 9.7 % Normal . F [facility] Comment on above: Performed By: #### P ILLAR LIPID, EBS A1C, PILLAR CBC, PILLAR CMP, PILLAR LDLD, PILLAR TSH #### [facility] [address] [place] [address] #### NICOTINE QUAL #### [facility] , Neutrophils (Bld) [#/Vol] 2.3 10*3/uL Normal 1.8-7.7 [facility] Comment on above: Performed By: #### P ILLAR LIPID, EBS A1C, PILLAR CBC, PILLAR CMP, PILLAR LDLD, PILLAR TSH #### [facility] [address] [place] [address] #### NICOTINE QUAL #### [facility] , Neutrophils/100 WBC (Bld) 47.3 % Normal . [facility] Comment on above: Performed By: #### P ILLAR LIPID, EBS A1C, PILLAR CBC, PILLAR CMP, PILLAR LDLD, PILLAR TSH #### [facility] [address] [place] [address] #### NICOTINE QUAL #### [facility] , NRBC% 0.2 /100{WBC} Normal 0-0.5 [facility] Comment on above: Performed By: #### P ILLAR LIPID, EBS A1C, PILLAR CBC, PILLAR CMP, PILLAR LDLD, PILLAR TSH #### [facility] [address] [place] [address] [place] #### NICOTINE QUAL #### [facility] , Platelet mean volume (Bld) [Entitic vol] 7.8 fL Normal 6.3-10.7 [facility] Comment on above: Performed By: #### P ILLAR LIPID, EBS A1C, PILLAR CBC, PILLAR CMP, PILLAR LDLD, PILLAR TSH #### [facility] [address] [place] [address] [place] #### NICOTINE QUAL #### [facility] , Platelets (Bld) [#/Vol] 245 10*3/uL Normal 150-450 [facility] Comment on above: Performed By: #### P ILLAR LIPID, EBS A1C, PILLAR CBC, PILLAR CMP, PILLAR LDLD, PILLAR TSH #### [facility] [address] [place] [address] [place] #### NICOTINE QUAL #### [facility] , RBC (Bld) [#/Vol] 5.20 10*6/uL High 3.60-5.00 [facility] Comment on above: Performed By: #### P ILLAR LIPID, EBS A1C, PILLAR CBC, PILLAR CMP, PILLAR LDLD, PILLAR TSH #### [facility] [address] [place] [address] [place] #### NICOTINE QUAL #### [facility] , WBC (Bld) [#/Vol] 4.8 10*3/uL Normal 3.8-11.6 [facility] Comment on above: Performed By: #### P ILLAR LIPID, EBS A1C, PILLAR CBC, PILLAR CMP, PILLAR LDLD, PILLAR TSH #### [facility] [address] [place] [address] [place] #### NICOTINE QUAL #### [facility] , Employee LDL Chol Measuredon 02-13-2023 Employee LDL Chol Measured 99 mg/dL Normal 0-100 [facility] Comment on above: Result Comment: LDL ATP III CLASSIFICATION LDL less than 100 mg/dL Optimal LDL 100-129 mg/dL Near or above optimal LDL 130-159 mg/dL Borderline high LDL 160-189 mg/dL High LDL greater than 189 mg/dL Very high Performed By: #### A SO, EBVNA, EBVEAG, EBV VCAIGG, EBV VCAIGM #### [facility] , #### CMP, ESR, CRP, CBC #### [facility] [address] Employee Lipid Profileon Cholesterol [Mass/Vol] 215 mg/dL High 140-200 [facility] Comment on above: Result Comment: Chol less than 200 mg/dl low risk Chol 201-239 mg/dl borderline risk Chol 240 mg/dl and greater high risk Performed By: #### A SO, EBVNA, EBVEAG, EBV VCAIGG, EBV VCAIGM #### [facility] , #### CMP, ESR, CRP, CBC #### [facility] [address] Cholesterol in HDL [Mass/Vol] 34 mg/dL Normal 23-92 [facility] Comment on above: Result Comment: HDL CHOL ATP-III CLASSIFICATION Cardiovascular Risk HDL > or equal to 60 mg/dL LOW HDL < 40 mg/dL HIGH Performed By: #### A SO, EBVNA, EBVEAG, EBV VCAIGG, EBV VCAIGM #### [facility] , #### CMP, ESR, CRP, CBC #### [facility] [address] Cholesterol.total/Eulalia sterol in HDL [Mass ratio] 6.3 {ratio} Normal <5.0 [facility] Comment on above: Performed By: #### A SO, EBVNA, EBVEAG, EBV VCAIGG, EBV VCAIGM #### [facility] , #### CMP, ESR, CRP, CBC #### [facility] [address] LDL Cholesterol,Calculated Not performed Normal 0-100 [facility] Comment on above: Performed By: #### A SO, EBVNA, EBVEAG, EBV VCAIGG, EBV VCAIGM #### [facility] , #### CMP, ESR, CRP, CBC #### [facility] [address] Triglyceride w/Reflex 482 mg/dL High 0-149 [facility] Comment on above: Result Comment: TRIG ATP III CLASSIFICATION TRIG less than 150 mg/dL Normal TRIG 150-199 mg/dL Borderline high TRIG 200-500 mg/dL High TRIG greater than 500 mg/dL Very high Standard traceable to the Center for Disease Conrtrol and Prevention (CDC) test method. If the triglyceride result is greater than 400, LDLC and related calculations cannot be calculated and resulted. Performed By: #### A SO, EBVNA, EBVEAG, EBV VCAIGG, EBV VCAIGM #### [facility] , #### CMP, ESR, CRP, CBC #### [address] VLDL CHOLESTEROL 96 mg/dL Normal [facility] Comment on above: Performed By: #### A SO, EBVNA, EBVEAG, EBV VCAIGG, EBV VCAIGM #### [facility] , #### CMP, ESR, CRP, CBC #### [address] Employee Thyroid Stim Hormon rohan 02-13-2023 Employee Thyroid Stim Hormone 1.38 u[iU]/mL Normal 0.45-5.33 [facility] Comment on above: Result Comment: PERF ORMED BY: [place] [address] PATHOLOGIST BENEFITS ADMINISTRATOR ADRIENNE DRAPER M.D. Performed By: #### A SO, EBVNA, EBVEAG, EBV VCAIGG, EBV VCAIGM #### [facility] , #### CMP, ESR, CRP, CBC #### [address] Nicotine Metabolite, [place] 02-13-2023 Nicotine Metabolite Negative Normal Cutoff=25 [facility] Comment on above: Result Comment: Perf ormed at: - [facility] [address] [id number] [employer]gage [employer] Supervisor: Huy Montez MD, Phone: [phone] PERFORMED BY: [place] [address] PATHOLOGIST BENEFITS ADMINISTRATOR ADRIENNE DRAPER M.D. Performed By: #### A SO, EBVNA, EBVEAG, EBV VCAIGG, EBV VCAIGM #### [facility] , #### CMP, ESR, CRP, CBC #### [facility] [address] [place], [place] [id number] [place] Anti-Streptolysin O Antibody on 01-05-2023 Anti-Streptolysin O Antibody <20.0 Normal 0.0-200.0 [facility] Comment on above: Order Comment: Reaso n for Exam Rash and nonspecific skin eruption Result Comment: Perf ormed at: [facility] [id number] [employer]gage [employer] Supervisor: Kings Robles PhD, Phone: [phone] Performed By: #### A SO, EBVNA, EBVEAG, EBV VCAIGG, EBV VCAIGM #### [facility] , #### CMP, ESR, CRP, CBC #### [address] [address] [place] Anti-Streptolysin O Antibody <20.0 0.0-200.0 [facility] Other C-Reactive Proteinon 023 C-Reactive Protein 1.5 mg/dL High 0.0-0.5 [facility] Comment on above: Order Comment: Reaso n for Exam Rash and nonspecific skin eruption Result Comment: PERF ORMED BY: [place] [address] PATHOLOGIST BENEFITS ADMINISTRATOR ADRIENNE DRAPER M.D. Performed By: #### A SO, EBVNA, EBVEAG, EBV VCAIGG, EBV VCAIGM #### [facility] , #### CMP, ESR, CRP, CBC #### [facility] [address] [place], [place] [id number] [place] C-Reactive Protein 1.5 mg/dL High 0.0-0.5 mg/dL [facility] Other Complete Blood Count Auto Di ffon 01-05-2023 Basophils (Bld) [#/Vol] 0.1 10*3/uL Normal 0.0-0.2 [facility] Comment on above: Order Comment: Reaso n for Exam Rash and nonspecific skin eruption Performed By: #### A SO, EBVNA, EBVEAG, EBV VCAIGG, EBV VCAIGM #### [facility] , #### CMP, ESR, CRP, CBC #### [facility] [address] Basophils/100 WBC (Bld) 1.4 % Normal . [facility] Comment on above: Order Comment: Reaso n for Exam Rash and nonspecific skin eruption Performed By: #### A SO, EBVNA, EBVEAG, EBV VCAIGG, EBV VCAIGM #### [facility] , #### CMP, ESR, CRP, CBC #### [facility] [address] [place] [address] [place] Eosinophils (Bld) [#/Vol] 0.2 10*3/uL Normal 0.0-0.45 [facility] Comment on above: Order Comment: Reaso n for Exam Rash and nonspecific skin eruption Performed By: #### A SO, EBVNA, EBVEAG, EBV VCAIGG, EBV VCAIGM #### [facility] , #### CMP, ESR, CRP, CBC #### [facility] [address] [place] [address] [place] Eosinophils/100 WBC (Bld) 2.1 % Normal . [facility] Comment on above: Order Comment: Reaso n for Exam Rash and nonspecific skin eruption Performed By: #### A SO, EBVNA, EBVEAG, EBV VCAIGG, EBV VCAIGM #### [facility] , #### CMP, ESR, CRP, CBC #### [facility] [address] Erythrocyte distribution width (RBC) [Ratio] 13.5 % Normal 11.9-15.3 [facility] Comment on above: Order Comment: Reaso n for Exam Rash and nonspecific skin eruption Performed By: #### A SO, EBVNA, EBVEAG, EBV VCAIGG, EBV VCAIGM #### [facility] , #### CMP, ESR, CRP, CBC #### [address] Hematocrit (Bld) [Volume fraction] 45.8 % Normal 34.0-46.4 [facility] Comment on above: Order Comment: Reaso n for Exam Rash and nonspecific skin eruption Performed By: #### A SO, EBVNA, EBVEAG, EBV VCAIGG, EBV VCAIGM #### [facility] , #### CMP, ESR, CRP, CBC #### [address] Hemoglobin (Bld) [Mass/Vol] 16.3 g/dL High 11.8-15.4 [facility] Comment on above: Order Comment: Reaso n for Exam Rash and nonspecific skin eruption Performed By: #### A SO, EBVNA, EBVEAG, EBV VCAIGG, EBV VCAIGM #### [facility] , #### CMP, ESR, CRP, CBC #### [address] Lymphocytes (Bld) [#/Vol] 2.1 10*3/uL Normal 1.00-4.8 [facility] Comment on above: Order Comment: Reaso n for Exam Rash and nonspecific skin eruption Performed By: #### A SO, EBVNA, EBVEAG, EBV VCAIGG, EBV VCAIGM #### [facility] , #### CMP, ESR, CRP, CBC #### [address] Lymphocytes/100 WBC (Bld) 24.7 % Normal . [facility] Comment on above: Order Comment: Reaso n for Exam Rash and nonspecific skin eruption Performed By: #### A SO, EBVNA, EBVEAG, EBV VCAIGG, EBV VCAIGM #### [facility] , #### CMP, ESR, CRP, CBC #### [address] MCH (RBC) [Entitic mass] 30.2 pg Normal 24.7-34.3 [facility] Comment on above: Order Comment: Reaso n for Exam Rash and nonspecific skin eruption Performed By: #### A SO, EBVNA, EBVEAG, EBV VCAIGG, EBV VCAIGM #### [facility] , #### CMP, ESR, CRP, CBC #### [address] MCV (RBC) [Entitic vol] 85.0 fL Normal 80-100 F [facility] Comment on above: Order Comment: Reaso n for Exam Rash and nonspecific skin eruption Performed By: #### A SO, EBVNA, EBVEAG, EBV VCAIGG, EBV VCAIGM #### [facility] , #### CMP, ESR, CRP, CBC #### [address] Mean Corpuscular HGB Conc 35.5 g/dL High 32.0-35.0 [facility] Comment on above: Order Comment: Reaso n for Exam Rash and nonspecific skin eruption Performed By: #### A SO, EBVNA, EBVEAG, EBV VCAIGG, EBV VCAIGM #### [facility] , #### CMP, ESR, CRP, CBC #### [facility] [address] [place] [address] Monocytes (Bld) [#/Vol] 0.6 10*3/uL Normal 0.0-0.8 [facility] Comment on above: Order Comment: Reaso n for Exam Rash and nonspecific skin eruption Performed By: #### A SO, EBVNA, EBVEAG, EBV VCAIGG, EBV VCAIGM #### [facility] , #### CMP, ESR, CRP, CBC #### [address] Monocytes/100 WBC (Bld) 7.0 % Normal . [facility] Comment on above: Order Comment: Reaso n for Exam Rash and nonspecific skin eruption Performed By: #### A SO, EBVNA, EBVEAG, EBV VCAIGG, EBV VCAIGM #### [facility] , #### CMP, ESR, CRP, CBC #### [address] Neutrophils (Bld) [#/Vol] 5.4 10*3/uL Normal 1.8-7.7 [facility] Comment on above: Order Comment: Reaso n for Exam Rash and nonspecific skin eruption Performed By: #### A SO, EBVNA, EBVEAG, EBV VCAIGG, EBV VCAIGM #### [facility] , #### CMP, ESR, CRP, CBC #### [address] Neutrophils/100 WBC (Bld) 64.8 % Normal . [facility] Comment on above: Order Comment: Reaso n for Exam Rash and nonspecific skin eruption Performed By: #### A SO, EBVNA, EBVEAG, EBV VCAIGG, EBV VCAIGM #### [facility] , #### CMP, ESR, CRP, CBC #### [place] [address] [place] NRBC% 0.5 /100{WBC} Normal 0-0.5 [facility] Comment on above: Order Comment: Reaso n for Exam Rash and nonspecific skin eruption Performed By: #### A SO, EBVNA, EBVEAG, EBV VCAIGG, EBV VCAIGM #### [facility] , #### CMP, ESR, CRP, CBC #### [address] Platelet mean volume (Bld) [Entitic vol] 7.9 fL Normal 6.3-10.7 [facility] Comment on above: Order Comment: Reaso n for Exam Rash and nonspecific skin eruption Performed By: #### A SO, EBVNA, EBVEAG, EBV VCAIGG, EBV VCAIGM #### [facility] , #### CMP, ESR, CRP, CBC #### [address] Platelets (Bld) [#/Vol] 302 10*3/uL Normal 150-[address] [facility] Other Comment on above: Order Comment: Reaso n for Exam Rash and nonspecific skin eruption Performed By: #### A SO, EBVNA, EBVEAG, EBV VCAIGG, EBV VCAIGM #### [facility] , #### CMP, ESR, CRP, CBC #### [address] RBC (Bld) [#/Vol] 5.39 10*6/uL High 3.60-5.00 [facility] Other Comment on above: Order Comment: Reaso n for Exam Rash and nonspecific skin eruption Performed By: #### A SO, EBVNA, EBVEAG, EBV VCAIGG, EBV VCAIGM #### [facility] , #### CMP, ESR, CRP, CBC #### [place] [address] [place] WBC (Bld) [#/Vol] 8.4 10*3/uL Normal 3.8-11.6 [facility] Comment on above: Order Comment: Reaso n for Exam Rash and nonspecific skin eruption Performed By: #### A SO, EBVNA, EBVEAG, EBV VCAIGG, EBV VCAIGM #### [facility] , #### CMP, ESR, CRP, CBC #### [address] Basophils (Bld) [#/Vol] 0.476090856 10*3/uL Normal 0.0-0.2 10*3/uL [facility] Other Basophils/100 WBC (Bld) 1.400 % . % N Infer Other Eosinophils (Bld) [#/Vol] 0.718040308 10*3/uL Normal 0.0-0.45 10*3/uL [facility] Other Eosinophils/100 WBC (Bld) 2.100 % . % [facility] Other Erythrocyte distribution width (RBC) [Ratio] 13.500 % Normal 11.9-15.3 % [facility] Other Hematocrit (Bld) [Volume fraction] 45.800 % Normal 34.0-46.4 % [facility] Other Hemoglobin (Bld) [Mass/Vol] 16.027298 g/dL High 11.8-15.4 g/dL [facility] Other Lymphocytes (Bld) [#/Vol] 2.160848665 10*3/uL Normal 1.00-4.8 10*3/uL [facility] Other Lymphocytes/100 WBC (Bld) 24.700 % . % [facility] Other MCH (RBC) [Entitic mass] 30.2000 pg Normal 24.7-34.3 pg [facility] Other MCV (RBC) [Entitic vol] 85.0000 fL Normal 80-100 fL N Infer Other Monocytes (Bld) [#/Vol] 0.853945924 10*3/uL Normal 0.0-0.8 10*3/uL [facility] Other Monocytes/100 WBC (Bld) 7.000 % . % N Infer Other Neutrophils (Bld) [#/Vol] 5.761800427 10*3/uL Normal 1.8-7.7 10*3/uL [facility] Other Neutrophils/100 WBC (Bld) 64.800 % . % [facility] Other Platelet mean volume (Bld) [Entitic vol] 7.9000 fL Normal 6.3-10.7 fL [facility] Other WBC (Bld) [#/Vol] 8.557742042 10*3/uL Normal 3.8 -11.6 10*3/uL [facility] Other Complete Blood Count Auto Diff 8.4 10*3/uL Normal 3.8-11.6 10*3/uL [facility] Other Complete Blood Count Auto Diff 35.5 g/dL High 32.0-35.0 g/dL [facility] Other Complete Blood Count Auto Diff 0.5 /100{WBC} Normal 0-0.5 /100{WBC} [facility] Other Comprehensive Metabolic Pane [facility] 01-05-2023 Albumin [Mass/Vol] 4.8 g/dL Normal 3.5-5.7 [facility] Comment on above: Order Comment: Reaso n for Exam Rash and nonspecific skin eruption Performed By: #### A SO, EBVNA, EBVEAG, EBV VCAIGG, EBV VCAIGM #### [facility] , #### CMP, ESR, CRP, CBC #### [facility] [address] Albumin/Globulin [Mass ratio] 1.8 {ratio} Normal [facility] Other Comment on above: Order Comment: Reaso n for Exam Rash and nonspecific skin eruption Performed By: #### A SO, EBVNA, EBVEAG, EBV VCAIGG, EBV VCAIGM #### [facility] , #### CMP, ESR, CRP, CBC #### [facility] [address] [place] [id number] [place] ALP [Catalytic activity/Vol] 64 U/L Normal 34-[address] [facility] Other Comment on above: Order Comment: Reaso n for Exam Rash and nonspecific skin eruption Performed By: #### A SO, EBVNA, EBVEAG, EBV VCAIGG, EBV VCAIGM #### [facility] , #### CMP, ESR, CRP, CBC #### [facility] [address] ALT [Catalytic activity/Vol] 13 U/L Normal 7-52 [facility] Other Comment on above: Order Comment: Reaso n for Exam Rash and nonspecific skin eruption Performed By: #### A SO, EBVNA, EBVEAG, EBV VCAIGG, EBV VCAIGM #### [facility] , #### CMP, ESR, CRP, CBC #### [address] Anion gap [Moles/Vol] 26.8 mmol/L High 6.0-15.0 [facility] Comment on above: Order Comment: Reaso n for Exam Rash and nonspecific skin eruption Performed By: #### A SO, EBVNA, EBVEAG, EBV VCAIGG, EBV VCAIGM #### [facility] , #### CMP, ESR, CRP, CBC #### [facility] [address] [place] [address] AST [Catalytic activity/Vol] 25 U/L Normal 13-39 [facility] Other Comment on above: Order Comment: Reaso n for Exam Rash and nonspecific skin eruption Performed By: #### A SO, EBVNA, EBVEAG, EBV VCAIGG, EBV VCAIGM #### [facility] , #### CMP, ESR, CRP, CBC #### [facility] [address] [place] [id number] [facility] Bilirubin [Mass/Vol] 0.4 mg/dL Normal 0.3-1.[address] [facility] Comment on above: Order Comment: Reaso n for Exam Rash and nonspecific skin eruption Performed By: #### A SO, EBVNA, EBVEAG, EBV VCAIGG, EBV VCAIGM #### [facility] , #### CMP, ESR, CRP, CBC #### [facility] [address] Calcium [Mass/Vol] 10.1 mg/dL Normal 8.6-10.3 [facility] Comment on above: Order Comment: Reaso n for Exam Rash and nonspecific skin eruption Performed By: #### A SO, EBVNA, EBVEAG, EBV VCAIGG, EBV VCAIGM #### [facility] , #### CMP, ESR, CRP, CBC #### [facility] [address] Chloride [Moles/Vol] 101 mmol/L Normal 98-107 [facility] [employer] Other Comment on above: Order Comment: Reaso n for Exam Rash and nonspecific skin eruption Performed By: #### A SO, EBVNA, EBVEAG, EBV VCAIGG, EBV VCAIGM #### [facility] , #### CMP, ESR, CRP, CBC #### [facility] [address] CO2 [Moles/Vol] 17.7 mmol/L Low 21.0-31.0 [facility] Comment on above: Order Comment: Reaso n for Exam Rash and nonspecific skin eruption Performed By: #### A SO, EBVNA, EBVEAG, EBV VCAIGG, EBV VCAIGM #### [facility] , #### CMP, ESR, CRP, CBC #### [facility] [address] Creatinine [Mass/Vol] 1.21 mg/dL High 0.60-1.20 [facility] Comment on above: Order Comment: Reaso n for Exam Rash and nonspecific skin eruption Performed By: #### A SO, EBVNA, EBVEAG, EBV VCAIGG, EBV VCAIGM #### [facility] , #### CMP, ESR, CRP, CBC #### [facility] [address] GFR/1.73 sq M.predicted MDRD (S/P/Bld) [Vol rate/Area] 54.600 mL/min/{1.73_m2} Normal [facility] Other Comment on above: Order Comment: Reaso n for Exam Rash and nonspecific skin eruption Performed By: #### A SO, EBVNA, EBVEAG, EBV VCAIGG, EBV VCAIGM #### [facility] , #### CMP, ESR, CRP, CBC #### [facility] [address] Globulin (S) [Mass/Vol] 2.6 g/dL Normal [facility] Comment on above: Order Comment: Reaso n for Exam Rash and nonspecific skin eruption Performed By: #### A SO, EBVNA, EBVEAG, EBV VCAIGG, EBV VCAIGM #### [facility] , #### CMP, ESR, CRP, CBC #### [facility] [address] Glucose [Mass/Vol] 132 mg/dL High 70-100 [facility] Other Comment on above: Order Comment: Reaso n for Exam Rash and nonspecific skin eruption Result Comment: [facility] Glucose Reference Range is dependent on time and content of last meal. Glucose of more than 200 mg/dL in a nonstressed, ambulatory subject supports the diagnosis of Diabetes Mellitus. ADA recommended reference range Performed By: #### A SO, EBVNA, EBVEAG, EBV VCAIGG, EBV VCAIGM #### [facility] , #### CMP, ESR, CRP, CBC #### [facility] [address] Potassium [Moles/Vol] 3.5 mmol/L Normal 3.5-5.1 [facility] Comment on above: Order Comment: Reaso n for Exam Rash and nonspecific skin eruption Performed By: #### A SO, EBVNA, EBVEAG, EBV VCAIGG, EBV VCAIGM #### [facility] , #### CMP, ESR, CRP, CBC #### [facility] [address] Protein [Mass/Vol] 7.4 g/dL Normal 6.4-8.9 [facility] Comment on above: Order Comment: Reaso n for Exam Rash and nonspecific skin eruption Performed By: #### A SO, EBVNA, EBVEAG, EBV VCAIGG, EBV VCAIGM #### [facility] , #### CMP, ESR, CRP, CBC #### [address] Sodium [Moles/Vol] 142 mmol/L Normal 136-145 [facility] Other Comment on above: Order Comment: Reaso n for Exam Rash and nonspecific skin eruption Performed By: #### A SO, EBVNA, EBVEAG, EBV VCAIGG, EBV VCAIGM #### [facility] , #### CMP, ESR, CRP, CBC #### [place] [address] [place] Urea nitrogen [Mass/Vol] 21 mg/dL Normal 7-25 [facility] Other Comment on above: Order Comment: Reaso n for Exam Rash and nonspecific skin eruption Performed By: #### A SO, EBVNA, EBVEAG, EBV VCAIGG, EBV VCAIGM #### [facility] , #### CMP, ESR, CRP, CBC #### [place] [id number] [facility] Albumin [Mass/Vol] 4.765104 g/dL Normal 3.5-5.7 g/dL N [facility] Other Bilirubin [Mass/Vol] 0.7355930 mg/dL Normal 0.3- 1.0 mg/dL [facility] Other Calcium [Mass/Vol] 10.5343990 mg/dL Normal 8.6-1 0.3 mg/dL [facility] Other CO2 [Moles/Vol] 17.30493064 mmol/L Low 21.0-3 1.0 mmol/L [facility] Other Creatinine [Mass/Vol] 1.64079184 mg/dL High 0. 60-1.20 mg/dL [facility] Other Potassium [Moles/Vol] 3.84511537 mmol/L Normal 3 .5-5.1 mmol/L [facility] Other Protein [Mass/Vol] 7.585355 g/dL Normal 6.4-8.9 g/dL [facility] Other Comprehensive Metabolic Panel 2.6 g/dL [facility] Other EBV Ab VCA, IgGon 01-05-2023 EBV Ab VCA, IgG >600.0 High 0.0-17.9 [facility] Comment on above: Order Comment: Reaso n for Exam Rash and nonspecific skin eruption Result Comment: Nega tive <18.0 Equivocal 18.0 - 21.9 Positive >21.9 Performed By: #### A SO, EBVNA, EBVEAG, EBV VCAIGG, EBV VCAIGM #### [facility] , #### CMP, ESR, CRP, CBC #### [facility] [address] EBV Ab VCA, IgG >600.0 High 0.0-17.9 [facility] Other EBV Ab VCA, IgMon 01-05-2023 EBV Ab VCA, IgM <36.0 Normal 0.0-35.9 [facility] Comment on above: Order Comment: Reaso n for Exam Rash and nonspecific skin eruption Result Comment: Nega tive <36.0 Equivocal 36.0 - 43.9 Positive >43.9 Performed at: - [facility] [address] [id number] [employer] Supervisor: Kings Robles PhD, Phone: [phone] PERFORMED BY: [place] [address] PATHOLOGIST BENEFITS ADMINISTRATOR ADRIENNE DRAPER M.D. Performed By: #### A SO, EBVNA, EBVEAG, EBV VCAIGG, EBV VCAIGM #### [facility] , #### CMP, ESR, CRP, CBC #### [address] EBV Ab VCA, IgM <36.0 0.0-35.9 [facility] Other EBV Nuclear Antigen Abs, IgG on 01-05-2023 EBV Nuclear Antigen Abs, IgG >600.0 High 0.0-17.9 [facility] Comment on above: Order Comment: Reaso n for Exam Rash and nonspecific skin eruption Result Comment: Nega tive <18.0 Equivocal 18.0 - 21.9 Positive >21.9 Performed By: #### A SO, EBVNA, EBVEAG, EBV VCAIGG, EBV VCAIGM #### [facility] , #### CMP, ESR, CRP, CBC #### [facility] [address] [place], [place] [id number] [facility] Car-Hubbard Virus Early Ag Abon 01-05-2023 Car-Hubbard Virus Early Ag Ab >150.0 High 0.0-8.9 [facility] Other Car-Hubbard Virus Early Robert GGon 01-05-2023 Car-Hubbard Virus Early AgIGG >150.0 High 0.0-8.9 [facility] Comment on above: Order Comment: Reaso n for Exam Rash and nonspecific skin eruption Result Comment: Hepa titis A, Hepatitis C and HIV antibodies may cross-react with this assay. Negative < 9.0 Equivocal 9.0 - 10.9 Positive >10.9 Performed By: #### A SO, EBVNA, EBVEAG, EBV VCAIGG, EBV VCAIGM #### [facility] , #### CMP, ESR, CRP, CBC #### [facility] [address] Erythrocyte Sedimentation Ra melinda 01-05-2023 ESR (Bld) [Velocity] 10 mm/h Normal 0-29 [facility] Other Comment on above: Order Comment: Reaso n for Exam Rash and nonspecific skin eruption Result Comment: PERF ORMED BY: [facility] [address] [place] [address] PATHOLOGIST BENEFITS ADMINISTRATOR ADRIENNE DRAPER M.D. Performed By: #### A SO, EBVNA, EBVEAG, EBV VCAIGG, EBV VCAIGM #### [facility] , #### CMP, ESR, CRP, CBC #### [facility] [address] [place] [id number] [facility] Lab Reportson 12-27-2022 Lab Reports [id number] #[id number] Normal [facility] Family Medicine Office/Clini c Noteon 12-13-2022 Family Medicine Office/Clinic Note Chief Complaint follow up and meds check HPI Staff Follow up chronic conditions/meds check Health Maintenance: Colonoscopy: 2 yrs ago Dexa: 2021 Mammo: no longer gets them Pap: yearly Last Labs: labs at ER sat. cbc, glucose cmp covid: UTD [id number] questions/concerns: ended up in ER Sat developed rash on left arm and swollen, rxed steroids and something like benadryl, neg for covid but with her hx of cellulitis she was concerned. History of Present Illness HYPOTHYROID DIVERTICULAR DX. 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 Review of Systems PHQ Score Initial Depression Screen Score: 0 Constitutional: no fever, no chills, no sweats, no weakness fatigued and SOME HEADaches SINCE THE RASH Skin: no Jaundice, no rash, moderate lesions, nopetechiae ENMT: no ear pain, no CO OF SORE THROAT congestion, no hoarseness Respiratory: no shortness of breath, no cough, no orthopnea, no wheezing Cardiovascular: no chest pain, no palpitations, no edema Gastrointestinal: no nausea, no vomiting, no diarrhea, no GI bleeding Genitourinary: no dysuria, no hematuria, no discharge, no pain Musculoskeletal: no back pain, no trauma Neurologic: no headache, no dizziness, no numbness, no weakness Psychiatric: no sleeping problems, no irritability, no mood swings/depression. \ Additional ROS info: Except as noted in the above Review of Systems and in the History of Present Illness all other systems have been reviewed and are negative or noncontributory. Physical Exam Vitals & Measurements HR: 79(Peripheral) RR: 20 BP: 130/72 SpO2: 97% HT: 62 in HT: 157.48 cm WT: 93.9 kg WT: 206.58 lb BMI: 37.86 General: alert, no acute distress Skin: SMALL PAPULAR ERUTHEMATOUS RASH CHEST ARMS AND BACK WITH SAND PAPERY FEELING Head: no trauma, normocephalic Neck: Trachea midline, no adenopathy, no tenderness Eye: normal conjunctiva, sclera clear ENMT: TM's clear, oral mucosa moist, Cardiovascular: regular rate and rhythm, normal peripheral perfusion Respiratory: Lungs CTA, respirations non labored Chest wall: no deformity. Gastrointestinal: soft, non distended, no tenderness, no guarding. Back: No tenderness, Normal ROM, Normal alignment. Extremities: no deformity, no trauma Neurological: oriented x 4, LOC appropriate for age, CN II-XII intact, motor strength equal & normal bilaterally, sensation equal & normal bilaterally, speech normal Psychiatric: cooperative, affect appropriate for age, normal judgement, normal psychiatric thoughts. Assessment/Plan 1. Diabetes, (E11.9: Type 2 diabetes mellitus without complications)Altere d metabolism due to diabetes Ordered: HgbA1c Urnls Dip Stick Non-Auto w/o Micrscpy POC 00351 2. Strep pharyngitis with scarlet fever (J02.0: Streptococcal pharyngitis) Pharyngitis (J02.9: Acute pharyngitis, unspecified) Ordered: Rapid Strep POC 79415 Scarlet fever with other complications (A38.8: Scarlet fever with other complications) Orders: amlodipine, 10 mg = 1 tab(s), Oral, Daily, # 90 tab(s), Refills(s) 3, Pharmacy: [facility], 157.5, cm, 12/13/22 15:39:00 EDT, Height/Length Dosing, 93.9, kg, 12/13/22 15:39:00 EDT, Weight Dosing cefdinir, 300 mg = 1 cap(s), Oral, q12hr, X 10 day(s), # 20 cap(s), Refills(s) 0, Pharmacy: [facility]/pharmacy #[id number], 157.5, cm, 12/13/22 15:39:00 EDT, Height/Length Dosing, 93.9, kg, 12/13/22 15:39:00 EDT, Weight Dosing citalopram, 20 mg = 1 tab(s), Oral, Daily, # 90 tab(s), Refills(s) 3, Pharmacy: [facility], 157.5, cm, 12/13/22 15:39:00 EDT, Height/Length Dosing, 93.9, kg, 12/13/22 15:39:00 EDT, Weight Dosing dapagliflozin, 5 mg = 1 tab(s), Oral, Daily, # 90 tab(s), Refills(s) 3, Pharmacy: [facility], 157.5, cm, 12/13/22 15:39:00 EDT, Height/Length Dosing, 93.9, kg, 12/13/22 15:39:00 EDT, Weight Dosing glipiZIDE, 5 mg = 1 tab(s), Oral, Daily, # 90 tab(s), Refills(s) 3, Pharmacy: [facility], 157.5, cm, 12/13/22 15:39:00 EDT, Height/Length Dosing, 93.9, kg, 12/13/22 15:39:00 EDT, Weight Dosing hydrochlorothiazide- losartan, 1 tab(s), Oral, Daily, 90 tab(s), Refill(s) 3, [facility], 157.5, cm, 12/13/22 15:39:00 EDT, Height/Length Dosing, 93.9, kg, 12/13/22 15:39:00 EDT, Weight Dosing hydrochlorothiazide- triamterene, 1 cap(s), Oral, Daily SWELLING, 90 caplet(s), Refill(s) 3, [facility], 157.5, cm, 12/13/22 15:39:00 EDT, Height/Length Dosing, 93.9, kg, 12/13/22 15:39:00 EDT, Weight Dosing Urinalysis Follow-up No qualifying data available Problem List/Past Medical History Ongoing Acid reflux Anxiety Asymptomatic microscopic hematuria Breast cancer Cancer Chronic depression Chronic sinusitis Depression Deviated nasal septum Diabetes Diverticula of intestine Fatty liver Flank pain Frequent urination Hidrade (more content not included)... Normal [facility] Comment on above: Result Comment: Elec tronically Signed By: VINNIE DOVER, ALBERT Darling\.br\Date and Time Signed: 12/13/22 16:36 EDT CBC AUTO DIFFon 12-10-2022 BASO # 0.1 103/ul Normal 0.0-0.1 [facility] Comment on above: Performed By: #### C BC #### [facility] [address] [place] [address] Dr. Hadley Keating Basophils/100 WBC (Bld) 0.7 % Normal 0.2-2.0 [facility] Comment on above: Performed By: #### C BC #### [facility] [address] [place] [address] Dr. Hadley Keating EO # 0.3 103/ul Normal 0.0-0.7 [facility] Comment on above: Performed By: #### C BC #### [facility] [address] [address] [address] Hadley Keating Eosinophils/100 WBC (Bld) 4.7 % Normal 0.9-7.0 [facility] Comment on above: Performed By: #### C BC #### [facility] [address] [address] [address] Hadley Keating Erythrocyte distribution width (RBC) [Ratio] 12.6 % Normal 11.0-15.0 [facility] Comment on above: Performed By: #### C BC #### [facility] [address] [place] [address] Dr. Hadley Keating Hematocrit (Bld) [Volume fraction] 45.4 % Normal 36.0-48.0 [facility] Comment on above: Performed By: #### C BC #### [facility] [address] [place] [address] Dr. Hadley Keating Hemoglobin (Bld) [Mass/Vol] 15.4 g/dL Normal 12.0-16.0 [facility] Comment on above: Performed By: #### C BC #### [facility] [address] [place] [address] Dr. Hadley Ketaing IG # 0.03 10e3/ul Normal 0.00-0.03 [facility] Comment on above: Performed By: #### C BC #### [facility] [address] [place] [address] Dr. Hadley Keating IG % 0.4 % Normal 0.0-0.5 [facility] Comment on above: Performed By: #### C BC #### [facility] [address] [place] [address] Dr. Hadley Keating LYMPH # 2.3 103/ul Normal 1.2-3.8 [facility] Comment on above: Performed By: #### C BC #### [facility] [address] [place] [address] Dr. Hadley Keating Lymphocytes/100 WBC (Bld) 33.6 % Normal 20.5-60.0 [facility] Comment on above: Performed By: #### C BC #### [facility] [address] [place] [address] Dr. Hadley Keating MANUAL DIFF REQ NO Normal [facility] Comment on above: Performed By: #### C BC #### [facility] [address] [place] [address] Dr. Hadley Keating MCH (RBC) [Entitic mass] 29.6 pg Normal 26.7-34.0 [facility] Comment on above: Performed By: #### C BC #### [facility] [address] [place] [address] Dr. Hadley Keating MCHC (RBC) [Mass/Vol] 33.9 g/dL Normal 29.9-35.2 [facility] Comment on above: Performed By: #### C BC #### [facility] [address] [place] [address] Dr. Hadley Keating MCV (RBC) [Entitic vol] 87.1 fL Normal 81.0-99.0 [facility] Comment on above: Performed By: #### C BC #### [facility] [address] [place] [address] Dr. Hadley Keating MONO # 0.6 103/ul Normal 0.3-0.8 [facility] Comment on above: Performed By: #### C BC #### [facility] [address] [place] [address] Dr. Hadley Keating Monocytes/100 WBC (Bld) 8.0 % Normal 1.7-12.0 [facility] Comment on above: Performed By: #### C BC #### [facility] [address] [place] [address] Dr. Hadley Keating NEUT # 3.7 103/ul Normal 1.4-6.5 [facility] Comment on above: Performed By: #### C BC #### [facility] [address] [place] [address] Dr. Hadley Keating Neutrophils/100 WBC (Bld) 52.6 % Normal 43.0-75.0 [facility] Comment on above: Performed By: #### C BC #### [facility] [address] [place] [address] Dr. Hadley Keating Platelet mean volume (Bld) [Entitic vol] 9.3 fL Critically low 9.5-13.5 [facility] Comment on above: Performed By: #### C BC #### [facility] [address] [place] [address] Dr. Hadley Keating PLT 238 103/ul Normal 150-450 [facility] Comment on above: Performed By: #### C BC #### [facility] [address] [place] [address] Dr. Hadley Keating RBC 5.21 106/ul Normal 4.20-5.40 [facility] Comment on above: Performed By: #### C BC #### [facility] [address] [place] [address] Dr. Hadley Keating WBC 7.0 103/ul Normal 4.0-11.0 [facility] Comment on above: Performed By: #### C BC #### [facility] [address] [place] [address] Dr. Hadley Keating CRPon 12-10-2022 CRP [Mass/Vol] mg/L Normal <=1.0 [facility] Comment on above: Performed By: #### F T4 #### [facility] [address] [place] [address] Dr. Hadley Keating PROF CHEM 8 (BAS METB)on Anion gap [Moles/Vol] 16.6 mmol/L Normal [facility] Comment on above: Performed By: #### F T4 #### [facility] [address] [place] [address] Dr. Hadley Keating Calcium [Mass/Vol] 8.7 mg/dL Normal 8.5-10.1 [facility] Comment on above: Performed By: #### F T4 #### [facility] [address] [place] [address] Dr. Hadley Keating Chloride [Moles/Vol] 102 mmol/L Normal 98-107 [facility] Comment on above: Performed By: #### F T4 #### [facility] [address] [place] [address] Dr. Hadley Keating CO2 [Moles/Vol] 23.8 mmol/L Normal 21.0-32.[address] [facility] Comment on above: Performed By: #### F T4 #### [facility] [address] [place] [address] Dr. Hadley Keating Creatinine [Mass/Vol] 1.01 mg/dL Normal 0.55-1.02 [facility] Comment on above: Performed By: #### F T4 #### [facility] [address] [place] [address] Dr. Hadley Keating EGFR-AF [facility] LUCIAN >60 Normal >=60 [facility] Comment on above: Performed By: #### F T4 #### [facility] [address] [place] [address] Dr. Hadley Keating EGFR-NON AF [facility] LUCIAN 58 mL/min/1.73m2 Critically low >=60 [facility] Comment on above: Performed By: #### F T4 #### [facility] [address] [address] [address] Hadley Keating Glucose [Mass/Vol] 244 mg/dL Critically high 74-106 T [facility] Comment on above: Performed By: #### F T4 #### [facility] [address] [place] [address] Dr. Hadley Keating Potassium [Moles/Vol] 3.4 mmol/L Critically low 3.5-5.1 [facility] Comment on above: Performed By: #### F T4 #### [facility] [address] [place] [address] Dr. Hadley Keating Sodium [Moles/Vol] 139 mmol/L Normal 136-145 [facility] Comment on above: Performed By: #### F T4 #### [facility] [address] [place] [address] Dr. Hadley Keating Urea nitrogen [Mass/Vol] 21.0 mg/dL Critically high 7.0-18.0 [facility] Comment on above: Performed By: #### F T4 #### [facility] [address] [place] [address] Dr. Hadley Keating Urea nitrogen/Creatinine [Mass ratio] 20.8 mg/mg Normal [facility] Comment on above: Performed By: #### F T4 #### [facility] [address] [place], [place] [id number] Dr. Hadley Keating SED RATE [facility] 2022 SED RATE 10 mm/hr Normal <=30 [facility] Comment on above: Performed By: #### S EDR #### [facility] [address] [place] [address] Dr. Hadley Keating Complete Blood Count Auto Di ffon 10-25-2022 Basophils (Bld) [#/Vol] 0.0 10*3/uL Normal 0.0-0.2 [facility] Comment on above: Result Comment: PERF ORMED BY: [place] [address] PATHOLOGIST BENEFITS ADMINISTRATOR ADRIENNE DRAPER M.D. Performed By: #### A SO, EBVNA, EBVEAG, EBV VCAIGG, EBV VCAIGM #### [facility] , #### CMP, ESR, CRP, CBC #### [address] Basophils/100 WBC (Bld) 0.7 % Normal . [facility] Comment on above: Performed By: #### A SO, EBVNA, EBVEAG, EBV VCAIGG, EBV VCAIGM #### [facility] , #### CMP, ESR, CRP, CBC #### [address] Eosinophils (Bld) [#/Vol] 0.3 10*3/uL Normal 0.0-0.45 [facility] Comment on above: Performed By: #### A SO, EBVNA, EBVEAG, EBV VCAIGG, EBV VCAIGM #### [facility] , #### CMP, ESR, CRP, CBC #### [address] Eosinophils/100 WBC (Bld) 4.1 % Normal . [facility] Comment on above: Performed By: #### A SO, EBVNA, EBVEAG, EBV VCAIGG, EBV VCAIGM #### [facility] , #### CMP, ESR, CRP, CBC #### [address] Erythrocyte distribution width (RBC) [Ratio] 13.6 % Normal 11.9-15.3 [facility] Comment on above: Performed By: #### A SO, EBVNA, EBVEAG, EBV VCAIGG, EBV VCAIGM #### [facility] , #### CMP, ESR, CRP, CBC #### [address] Hematocrit (Bld) [Volume fraction] 45.8 % Normal 34.0-46.4 [facility] Comment on above: Performed By: #### A SO, EBVNA, EBVEAG, EBV VCAIGG, EBV VCAIGM #### [facility] , #### CMP, ESR, CRP, CBC #### [address] Hemoglobin (Bld) [Mass/Vol] 15.4 g/dL Normal 11.8-15.4 [facility] Comment on above: Performed By: #### A SO, EBVNA, EBVEAG, EBV VCAIGG, EBV VCAIGM #### [facility] , #### CMP, ESR, CRP, CBC #### [address] Lymphocytes (Bld) [#/Vol] 2.2 10*3/uL Normal 1.00-4.8 [facility] Comment on above: Performed By: #### A SO, EBVNA, EBVEAG, EBV VCAIGG, EBV VCAIGM #### [facility] , #### CMP, ESR, CRP, CBC #### [address] Lymphocytes/100 WBC (Bld) 32.8 % Normal . [facility] Comment on above: Performed By: #### A SO, EBVNA, EBVEAG, EBV VCAIGG, EBV VCAIGM #### [facility] , #### CMP, ESR, CRP, CBC #### [address] MCH (RBC) [Entitic mass] 29.1 pg Normal 24.7-34.3 [facility] Comment on above: Performed By: #### A SO, EBVNA, EBVEAG, EBV VCAIGG, EBV VCAIGM #### [facility] , #### CMP, ESR, CRP, CBC #### [address] MCV (RBC) [Entitic vol] 86.7 fL Normal 80-100 F [facility] Comment on above: Performed By: #### A SO, EBVNA, EBVEAG, EBV VCAIGG, EBV VCAIGM #### [facility] , #### CMP, ESR, CRP, CBC #### [address] Mean Corpuscular HGB Conc 33.6 g/dL Normal 32.0-35.0 [facility] Comment on above: Performed By: #### A SO, EBVNA, EBVEAG, EBV VCAIGG, EBV VCAIGM #### [facility] , #### CMP, ESR, CRP, CBC #### [address] Monocytes (Bld) [#/Vol] 0.7 10*3/uL Normal 0.0-0.8 [facility] Comment on above: Performed By: #### A SO, EBVNA, EBVEAG, EBV VCAIGG, EBV VCAIGM #### [facility] , #### CMP, ESR, CRP, CBC #### [address] Monocytes/100 WBC (Bld) 10.7 % Normal . [facility] Comment on above: Performed By: #### A SO, EBVNA, EBVEAG, EBV VCAIGG, EBV VCAIGM #### [facility] , #### CMP, ESR, CRP, CBC #### [address] Neutrophils (Bld) [#/Vol] 3.5 10*3/uL Normal 1.8-7.7 [facility] Comment on above: Performed By: #### A SO, EBVNA, EBVEAG, EBV VCAIGG, EBV VCAIGM #### [facility] , #### CMP, ESR, CRP, CBC #### [address] Neutrophils/100 WBC (Bld) 51.7 % Normal . [facility] Comment on above: Performed By: #### A SO, EBVNA, EBVEAG, EBV VCAIGG, EBV VCAIGM #### [facility] , #### CMP, ESR, CRP, CBC #### [address] NRBC% 0.1 /100{WBC} Normal 0-0.5 [facility] Comment on above: Performed By: #### A SO, EBVNA, EBVEAG, EBV VCAIGG, EBV VCAIGM #### [facility] , #### CMP, ESR, CRP, CBC #### [address] Platelet mean volume (Bld) [Entitic vol] 7.5 fL Normal 6.3-10.7 [facility] Comment on above: Performed By: #### A SO, EBVNA, EBVEAG, EBV VCAIGG, EBV VCAIGM #### [facility] , #### CMP, ESR, CRP, CBC #### [address] Platelets (Bld) [#/Vol] 259 10*3/uL Normal 150-450 [facility] Comment on above: Performed By: #### A SO, EBVNA, EBVEAG, EBV VCAIGG, EBV VCAIGM #### [facility] , #### CMP, ESR, CRP, CBC #### [address] RBC (Bld) [#/Vol] 5.28 10*6/uL High 3.60-5.00 [facility] Comment on above: Performed By: #### A SO, EBVNA, EBVEAG, EBV VCAIGG, EBV VCAIGM #### [facility] , #### CMP, ESR, CRP, CBC #### [facility] [address] WBC (Bld) [#/Vol] 6.7 10*3/uL Normal 3.8-11.6 [facility] Comment on above: Performed By: #### A SO, EBVNA, EBVEAG, EBV VCAIGG, EBV VCAIGM #### [facility] , #### CMP, ESR, CRP, CBC #### [address] Comprehensive Metabolic Pane yadira 10-25-2022 Albumin [Mass/Vol] 4.6 g/dL Normal 3.5-5.7 [facility] Comment on above: Performed By: #### A SO, EBVNA, EBVEAG, EBV VCAIGG, EBV VCAIGM #### [facility] , #### CMP, ESR, CRP, CBC #### [address] Albumin/Globulin [Mass ratio] 1.7 {ratio} Normal [facility] Comment on above: Performed By: #### A SO, EBVNA, EBVEAG, EBV VCAIGG, EBV VCAIGM #### [facility] , #### CMP, ESR, CRP, CBC #### [facility] [address] [place] [address] ALP [Catalytic activity/Vol] 47 U/L Normal 34-104 [facility] Comment on above: Result Comment: PERF ORMED BY: [place] [address] PATHOLOGIST BENEFITS ADMINISTRATOR ADRIENNE DRAPER M.D. Performed By: #### A SO, EBVNA, EBVEAG, EBV VCAIGG, EBV VCAIGM #### [facility] , #### CMP, ESR, CRP, CBC #### [address] ALT [Catalytic activity/Vol] 14 U/L Normal 7-52 [facility] Comment on above: Performed By: #### A SO, EBVNA, EBVEAG, EBV VCAIGG, EBV VCAIGM #### [facility] , #### CMP, ESR, CRP, CBC #### [address] Anion gap [Moles/Vol] 13.3 mmol/L Normal 6.0-15.0 [facility] Comment on above: Performed By: #### A SO, EBVNA, EBVEAG, EBV VCAIGG, EBV VCAIGM #### [facility] , #### CMP, ESR, CRP, CBC #### [address] AST [Catalytic activity/Vol] 22 U/L Normal 13-39 [facility] Comment on above: Performed By: #### A SO, EBVNA, EBVEAG, EBV VCAIGG, EBV VCAIGM #### [facility] , #### CMP, ESR, CRP, CBC #### [address] Bilirubin [Mass/Vol] 0.5 mg/dL Normal 0.3-1.[address] [facility] Comment on above: Performed By: #### A SO, EBVNA, EBVEAG, EBV VCAIGG, EBV VCAIGM #### [facility] , #### CMP, ESR, CRP, CBC #### [facility] [address] [place] [address] Calcium [Mass/Vol] 9.7 mg/dL Normal 8.6-10.3 [facility] Comment on above: Performed By: #### A SO, EBVNA, EBVEAG, EBV VCAIGG, EBV VCAIGM #### [facility] , #### CMP, ESR, CRP, CBC #### [facility] [address] [place] [address] Chloride [Moles/Vol] 100 mmol/L Normal 98-[address] [facility] Comment on above: Performed By: #### A SO, EBVNA, EBVEAG, EBV VCAIGG, EBV VCAIGM #### [facility] , #### CMP, ESR, CRP, CBC #### [address] CO2 [Moles/Vol] 27.5 mmol/L Normal 21.0-31.0 [facility] Comment on above: Performed By: #### A SO, EBVNA, EBVEAG, EBV VCAIGG, EBV VCAIGM #### [facility] , #### CMP, ESR, CRP, CBC #### [address] Creatinine [Mass/Vol] 0.83 mg/dL Normal 0.60-1.20 [facility] Comment on above: Performed By: #### A SO, EBVNA, EBVEAG, EBV VCAIGG, EBV VCAIGM #### [facility] , #### CMP, ESR, CRP, CBC #### [address] GFR/1.73 sq M.predicted MDRD (S/P/Bld) [Vol rate/Area] mL/min/{1.73_m2} Normal [facility] Comment on above: Performed By: #### A SO, EBVNA, EBVEAG, EBV VCAIGG, EBV VCAIGM #### [facility] , #### CMP, ESR, CRP, CBC #### [facility] [address] [place] [address] Globulin (S) [Mass/Vol] 2.7 g/dL Normal [facility] Comment on above: Performed By: #### A SO, EBVNA, EBVEAG, EBV VCAIGG, EBV VCAIGM #### [facility] , #### CMP, ESR, CRP, CBC #### [facility] [address] [place] [address] Glucose [Mass/Vol] 83 mg/dL Normal 70-100 [facility] Comment on above: Result Comment: [facility] Glucose Reference Range is dependent on time and content of last meal. Glucose of more than 200 mg/dL in a nonstressed, ambulatory subject supports the diagnosis of Diabetes Mellitus. ADA recommended reference range Performed By: #### A SO, EBVNA, EBVEAG, EBV VCAIGG, EBV VCAIGM #### [facility] , #### CMP, ESR, CRP, CBC #### [address] Potassium [Moles/Vol] 3.8 mmol/L Normal 3.5-5.1 [facility] Comment on above: Performed By: #### A SO, EBVNA, EBVEAG, EBV VCAIGG, EBV VCAIGM #### [facility] , #### CMP, ESR, CRP, CBC #### [facility] [address] [place] [address] Protein [Mass/Vol] 7.3 g/dL Normal 6.4-8.9 [facility] Comment on above: Performed By: #### A SO, EBVNA, EBVEAG, EBV VCAIGG, EBV VCAIGM #### [facility] , #### CMP, ESR, CRP, CBC #### [facility] [address] [place] [address] [place] Sodium [Moles/Vol] 137 mmol/L Normal 136-145 [facility] Comment on above: Performed By: #### A SO, EBVNA, EBVEAG, EBV VCAIGG, EBV VCAIGM #### [facility] , #### CMP, ESR, CRP, CBC #### [address] [id number] [facility] Urea nitrogen [Mass/Vol] 22 mg/dL Normal 7-25 [facility] Comment on above: Performed By: #### A SO, EBVNA, EBVEAG, EBV VCAIGG, EBV VCAIGM #### [facility] , #### CMP, ESR, CRP, CBC #### [facility] [address] [id number] [facility] Urinalysis - AUTOMATEDon Appearance (U) cloudy [employer] Other Bilirubin Ql (U) Negative [employer] Other Color (U) color [employer] Other Glucose Ql (U) 250 [employer] Other Hemoglobin Ql (U) trace-intact [facility] Other Ketones Ql (U) Negative [employer] Other Leukocyte esterase Test strip Ql (U) SMALL [employer] [facility] Other Nitrite Ql (U) Negative [employer] Other pH (U) 5.5 [pH] [employer] [facility] Other Protein Ql (U) Negative [employer] Other Specific gravity (U) [Rel density] 1.030 [facility] Other Urobilinogen (U) [Mass/Vol] 0.2 mg/dL [facility] Other Urinalysis - AUTOMATED No [employer] Other Urine Cultureon 05-12-2022 Urine Culture >100,000 [facility] Other Urine Culture <16 Susceptible [employer] Other Urine Culture 16 Inter[employer] Other Urine Culture <4 Susceptible [employer] Other Urine Culture <2 Susceptible [employer] Other Urine Culture <1 Susceptible [employer] Other Urine Culture <0.5 Susceptible [employer] Other Urine Culture <32 Susceptible [employer] Other Urine Culture >2/38 Resistant [facility] Other Urine culture routineOrdered By: ADRIANA GEORGES on 05-12-2022 Bacteria identified Cx Nom (U) Klebsiella pneumoniae [facility] Follitropin [Units/volume] i n Serum or PlasmaOrdered By: Sheri Kovacs on 05-10-2022 Follitropin Qn 8.3 m[IU]/mL [facility] Comment on above: FEMALE NORMALS (LILIANA ENOPAUSE) MID-FOLLICULAR PHASE: 3.9-8.8 mIU/mL MID-CYCLE PEAK: 4.5-22.5 mIU/mL MID-LUTEAL PHASE: 1.8-5.1 mIU/mLFEMALE NORMALS (POSTMENOPAUSE): 16.7-113.6 mIU/mLMALE NORMALS: 1.3-19.3 mIU/mL Serum or plasma estradiol (E 2) measurement (mass/volume)Ordered By: Sheri Kovacs on 05-10-2022 E2 [Mass/Vol] 22.4 pg/mL . [facility] Comment on above: Adult Female: Follic ular phase 12.5 - 166.0 Ovulation phase 85.8 - 498.0 Luteal phase 43.8 - 211.0 Postmenopausal <6.0 - 54.7 1st trimester 215.0 - >4300.0Roche ECLIA methodologyPerformed at: - [facility] [address] [id number] Director: Kings Robles PhD, Phone: [phone] Serum or plasma lutropin shira surement (units/volume)Ordered By: Sheri Kovacs on 05-10-2022 Lutropin Qn 7.4 m[IU]/mL . [facility] Comment on above: Adult Female: Follic ular phase 2.4 - 12.6 Ovulation phase 14.0 - 95.6 Luteal phase 1.0 - 11.4 Postmenopausal 7.7 - 58.5 REVERSE T3on 03-25-2022 Reverse T3, Serum 21.2 ng/dL Normal 9.2-24.1 [facility] Comment on above: Result Comment: This test was developed and its performance characteristics determined by [employer]. It has not been cleared or approved by the Food and Drug Administration. Performed By: #### R EVRT3 #### [facility] [address] [place] [address] Dr. Hadley Keating SARS-CoV-2 (COVID-19) RNA NA A+probe Ql (Resp)on 03-22-2022 SARS-CoV-2 (COVID-19) RNA VON+probe Ql (Unsp spec) Negative [facility] Other T3, TOTAL (TRIIODOTHYRONINE) on 03-20-2022 T3, TOTAL 185 ng/dL Critically high 71-180 [facility] Comment on above: Performed By: #### F T4 #### [facility] [address] [place] [address] Dr. Hadley Keating FREE T3on 03-19-2022 FREE T3 3.39 pg/mlL Normal 2.18-3.98 [facility] Comment on above: Performed By: #### F T4 #### [facility] [address] [address] [address] Hadley Keating FREE T4on 03-19-2022 Free T4 [Mass/Vol] 1.06 ng/dL Normal 0.76-1.46 [facility] Comment on above: Performed By: #### F T4 #### [facility] [address] [place] [address] Dr. Hadley Keating TSHon 03-19-2022 TSH 0.636 uIU/mL Normal 0.358-3.740 [facility] Comment on above: Performed By: #### C BC #### [facility] [address] [place] [address] Dr. Hadley Keating NM STRESS/REST MULTIon 02-08 NM STRESS/REST MULTI Patient: MARIA M MCKEON Exam Date: 02/08/2022 : 1970 Gender:F Ordering : DR ALBERT CHRISTIANSON . Admission #: [id number] Family : Order #: [id number] CLICK HERE TO VIEW EXAM RADIOLOGY REPORT PROCEDURE: RADIONUCLIDE IMAGING STRESS/REST MULTI COMPARISON: None. INDICATIONS: Chest pain, hypertension TECHNIQUE: Exam Description: Stress/Rest two day protocol gated SPECT Rest Imagin.0 mCi Tc-99m Cardiolite IV on 02/10/2022 Stress Imaging 25.1 mCi Tc-99m Cardiolite IV on 02/08/2022 Exercise Protocol: Yahir Heart Rate (bpm): Rest: 68 Max: 144 PMHR: 84 Blood Pressure: Rest: 112/76 Max: 138/82 Exercise Time: Minutes: 6 Seconds: 41 Stage Reached: Stage: 2 Mets 7.0 Symptoms: Rest and peak stress ECG findings were normal and the exercise portion of the study was normal per attending physician Dr. Christianson . For more details please see separate cardiac stress test report. FINDINGS: QUALITY OF STUDY: Excellent. PERFUSION DEFECT: None. LOCATION: N/A SIZE: N/A. SEVERITY: N/A. TYPE: N/A. WALL MOTION: Normal. LV SIZE: Normal. 70 mL. TID / TCD: None; 1.1 LVEF: Normal. Calculated EF 69%. SUMMARY: Myocardial perfusion imaging study is NORMAL. CONCLUSION: 1. No reversible ischemia 2. Normal exercise test Dictated by: Kaden Lacy MD on 02/10/2022 at 14:14 Approved by: Kaden Lacy MD on 02/10/2022 at 14:16 Normal [facility] FREE T3on 01-20-2022 FREE T3 2.79 pg/mlL Normal 2.18-3.98 [facility] Comment on above: Performed By: #### F T4 #### [facility] [address] [place] [address] Dr. Hadley Keating FREE T4on 01-20-2022 Free T4 [Mass/Vol] 1.00 ng/dL Normal 0.76-1.46 [facility] Comment on above: Performed By: #### F T4 #### [facility] [address] [place] [address] Dr. Hadley Keating GLYCOHEMOGLOBIN A1Con 2021 ADA RECOMMENDATION SEE BELOW Normal [facility] Comment on above: Result Comment: ADA RECOMMENDED LIMIT 4.0 - 6.0 ADA THERAPEUTIC TARGET < 7.0 ACTION SUGGESTED > 7.0 Performed By: #### A 1C #### [facility] [address] [place] [address] Dr. Hadley Keating Glucose [Mass/Vol] 134 mg/dL Normal [facility] Comment on above: Performed By: #### A 1C #### [facility] [address] [place] [address] Dr. Hadley Keating HbA1c (Bld) [Mass fraction] 6.3 % Critically high 4.5-6.2 [facility] Comment on above: Performed By: #### A 1C #### [facility] [address] [place] [address] Dr. Hadley Keating TSHon 01-20-2022 TSH 0.914 uIU/mL Normal 0.358-3.740 [facility] Comment on above: Performed By: #### F T4 #### [facility] [address] [place] [address] Dr. Hadley Keating CBC AUTO DIFFon 12-31-2021 BASO # 0.1 103/ul Normal 0.0-0.1 [facility] Comment on above: Performed By: #### C BC #### [facility] [address] [place] [address] Dr. Hadley Keating Basophils/100 WBC (Bld) 0.6 % Normal 0.2-2.0 [facility] Comment on above: Performed By: #### C BC #### [facility] [address] [place] [address] Dr. Hadley Keating EO # 0.3 103/ul Normal 0.0-0.7 [facility] Comment on above: Performed By: #### C BC #### [facility] [address] [place] [address] Dr. Hadley Keating Eosinophils/100 WBC (Bld) 3.4 % Normal 0.9-7.0 [facility] Comment on above: Performed By: #### C BC #### [facility] [address] [place] [address] Dr. Hadley Keating Erythrocyte distribution width (RBC) [Ratio] 13.1 % Normal 11.0-15.0 [facility] Comment on above: Performed By: #### C BC #### [facility] [address] [place] [address] Dr. Hadley Keating Hematocrit (Bld) [Volume fraction] 46.2 % Normal 36.0-48.0 [facility] Comment on above: Performed By: #### C BC #### [facility] [address] [place] [address] Dr. Hadley Keating Hemoglobin (Bld) [Mass/Vol] 15.7 g/dL Normal 12.0-16.0 [facility] Comment on above: Performed By: #### C BC #### [facility] [address] [place] [address] Dr. Hadley Keating IG # 0.02 10e3/ul Normal 0.00-0.03 [facility] Comment on above: Performed By: #### C BC #### [facility] [address] [place] [address] Dr. Hadley Keating IG % 0.2 % Normal 0.0-0.5 [facility] Comment on above: Performed By: #### C BC #### [facility] [address] [place] [address] Dr. Hadley Keating LYMPH # 2.3 103/ul Normal 1.2-3.8 [facility] Comment on above: Performed By: #### C BC #### [facility] [address] [place] [address] Dr. Hadley Keating Lymphocytes/100 WBC (Bld) 27.3 % Normal 20.5-60.0 [facility] Comment on above: Performed By: #### C BC #### [facility] [address] [place] [address] Dr. Hadley Keating MANUAL DIFF REQ NO Normal [facility] Comment on above: Performed By: #### C BC #### [facility] [address] [place] [address] Dr. Hadley Keating MCH (RBC) [Entitic mass] 29.3 pg Normal 26.7-34.0 [facility] Comment on above: Performed By: #### C BC #### [facility] [address] [place] [address] Dr. Hadley Keating MCHC (RBC) [Mass/Vol] 34.0 g/dL Normal 29.9-35.2 [facility] Comment on above: Performed By: #### C BC #### [facility] [address] [place] [address] Dr. Hadley Keating MCV (RBC) [Entitic vol] 86.2 fL Normal 81.0-99.0 [facility] Comment on above: Performed By: #### C BC #### [facility] [address] [place] [address] Dr. Hadley Keating MONO # 0.6 103/ul Normal 0.3-0.8 [facility] Comment on above: Performed By: #### C BC #### [facility] [address] [place] [address] Dr. Hadley Keating Monocytes/100 WBC (Bld) 6.9 % Normal 1.7-12.0 [facility] Comment on above: Performed By: #### C BC #### [facility] [address] [place] [address] Dr. Hadley Keating NEUT # 5.1 103/ul Normal 1.4-6.5 [facility] Comment on above: Performed By: #### C BC #### [facility] [address] [place] [address] Dr. Hadley Keating Neutrophils/100 WBC (Bld) 61.6 % Normal 43.0-75.0 [facility] Comment on above: Performed By: #### C BC #### [facility] [address] [place] [address] Dr. Hadely Keating Platelet mean volume (Bld) [Entitic vol] 9.0 fL Critically low 9.5-13.5 [facility] Comment on above: Performed By: #### C BC #### [facility] Laboratory [address] [place] [address] Dr. Hadley Keating PLT 272 103/ul Normal 150-450 [facility] Comment on above: Performed By: #### C BC #### [facility] [address] [place] [address] Dr. Hadley Keating RBC 5.36 106/ul Normal 4.20-5.40 [facility] Comment on above: Performed By: #### C BC #### [facility] [address] [place] [address] Dr. Hadley Keating WBC 8.3 103/ul Normal 4.0-11.0 [facility] Comment on above: Performed By: #### C BC #### [facility] [address] [place] [address] Dr. Hadley Keating CULTURE URINEon 12-31-2021 CULTURE URINE Culture Observations: NO GROWTH. Normal [facility] Comment on above: Performed By: #### F T4 #### [facility] [address] [place] [address] Dr. Hadley Keating ER URINE PROFILEon 2 Bilirubin Ql (U) Negative Normal NEGATIVE [facility] Comment on above: Performed By: #### F T4 #### [facility] [address] [place] [address] Dr. Hadley Keating Clarity (U) CLEAR Normal CLEAR [facility] Comment on above: Performed By: #### F T4 #### [facility] [address] [place] [address] Dr. Hadley Keating Color (U) YELLOW Normal YELLOW [facility] Comment on above: Performed By: #### F T4 #### [facility] [address] [place] [address] Dr. Hadley SUMMERS A micrscopic examination will be performed if indicated. Normal [facility] Comment on above: Performed By: #### F T4 #### [facility] [address] [place] [address] Dr. Hadley Keating Glucose Ql (U) 1000 mg/dl Abnormal NEGATIVE [facility] Comment on above: Performed By: #### F T4 #### [facility] [address] [place] [address] Dr. Hadley Keating Hemoglobin Ql (U) TRACE-INTACT Abnormal NEGATIVE [facility] Comment on above: Performed By: #### F T4 #### [facility] [address] [place] [address] Dr. Hadley Keating Ketones Ql (U) Negative Normal NEGATIVE [facility] Comment on above: Performed By: #### F T4 #### [facility] [address] [place] [address] Dr. Hadley Keating LEUKOCYTES TRACE Abnormal NEGATIVE [facility] Comment on above: Performed By: #### F T4 #### [facility] [address] [place] [address] Dr. Hadley Keating Nitrite Ql (U) Negative Normal NEGATIVE [facility] Comment on above: Performed By: #### F T4 #### [facility] [address] [place] [address] Dr. Hadley Keating pH (U) 5.0 [pH] Normal 5-9 [facility] Comment on above: Performed By: #### F T4 #### [facility] [address] [place] [address] Dr. Hadley Keating SPEC GRAVITY 1.030 Abnormal 1.005-<=1.02 5 [facility] Comment on above: Performed By: #### F T4 #### [facility] [address] [place] [address] Dr. Hadley Keating UA PROTEIN Negative Normal NEGATIVE/ TRACE [facility] Comment on above: Performed By: #### F T4 #### [facility] [address] [place] [address] Dr. Hadley Keating UR MICRO IND INDICATED Normal [facility] Comment on above: Performed By: #### F T4 #### [facility] [address] [place] [address] Dr. Hadley Keating Urobilinogen Qn (U) 0.2 {Kandice'U}/dL Normal 0.2 - 1. 0 [facility] Comment on above: Performed By: #### F T4 #### [facility] [address] [place] [address] Dr. Hadley Keating LACTATE/LACTIC ACIDon 2021 Lactate [Moles/Vol] 1.7 mmol/L Normal 0.4-1.9 [facility] Comment on above: Performed By: #### L ACT #### [facility] [address] [place] [address] Dr. Hadley Keating LIPASEon 12-31-2021 Lipase [Catalytic activity/Vol] 105.0 U/L Normal 73.0-393.0 [facility] Comment on above: Performed By: #### L IPA #### [facility] [address] [place] [address] Dr. Hadley Keating PROF 14(COMP METB)on 022 Albumin [Mass/Vol] 4.1 g/dL Normal 3.4-5.0 [facility] Comment on above: Performed By: #### C MP #### [facility] [address] [place] [address] Dr. Hadley Keating Albumin/Globulin [Mass ratio] 1.0 {ratio} Normal [facility] Comment on above: Performed By: #### C MP #### [facility] [address] [place] [address] Dr. Hadley Keating ALP [Catalytic activity/Vol] 63 U/L Normal 46-116 [facility] Comment on above: Performed By: #### C MP #### [facility] [address] [place] [address] Dr. Hadley Keating ALT [Catalytic activity/Vol] 25 U/L Normal 14-59 [facility] Comment on above: Performed By: #### C MP #### [facility] [address] [place] [address] Dr. Hadley Keating Anion gap [Moles/Vol] 15.0 mmol/L Normal [facility] Comment on above: Performed By: #### C MP #### [facility] [address] [place] [address] Dr. Hadley Keating AST [Catalytic activity/Vol] 28 U/L Normal 15-37 [facility] Comment on above: Performed By: #### C MP #### [facility] [address] [address] [address] Hadley Keating Calcium [Mass/Vol] 9.4 mg/dL Normal 8.5-10.1 [facility] Comment on above: Performed By: #### C MP #### [facility] [address] [address] [address] Hadley Keating Chloride [Moles/Vol] 99 mmol/L Normal 98-107 [facility] Comment on above: Performed By: #### C MP #### [facility] [address] [address] [address] Hadley Keating CO2 [Moles/Vol] 24.1 mmol/L Normal 21.0-32.0 [facility] Comment on above: Performed By: #### C MP #### [facility] [address] [address] [address] Hadley Keating Creatinine [Mass/Vol] 0.83 mg/dL Normal 0.55-1.02 [facility] Comment on above: Performed By: #### C MP #### [facility] [address] [address] [address] Hadley Keating EGFR-AF [facility] LUCIAN >60 Normal >=60 [facility] Comment on above: Performed By: #### C MP #### [facility] [address] [address] [address] Hadley Keating EGFR-NON AF [facility] LUCIAN >60 Normal >=60 [facility] Comment on above: Performed By: #### C MP #### [facility] [address] [address] [address] Hadley Keating Globulin (S) [Mass/Vol] 4.1 g/dL Normal [facility] Comment on above: Performed By: #### C MP #### [facility] [address] [address] [address] Hadley Keating Glucose [Mass/Vol] 121 mg/dL Critically high 74-106 [facility] Comment on above: Performed By: #### C MP #### [facility] [address] [address] [address] Hadley Keating Potassium [Moles/Vol] 3.1 mmol/L Critically low 3.5-5.1 [facility] Comment on above: Performed By: #### C MP #### [facility] [address] [place] [address] Dr. Hadley Keating Protein [Mass/Vol] 8.2 g/dL Normal 6.4-8.2 [facility] Comment on above: Performed By: #### C MP #### [facility] [address] [place] [address] Dr. Hadley Keating Sodium [Moles/Vol] 135 mmol/L Critically low 136-145 [facility] Comment on above: Performed By: #### C MP #### [facility] [address] [place] [address] Dr. Hadley Keating Urea nitrogen [Mass/Vol] 15.0 mg/dL Normal 7.0-18.0 [facility] Comment on above: Performed By: #### C MP #### [facility] [address] [place] [address] Dr. Hadley Keating Urea nitrogen/Creatinine [Mass ratio] 18.1 mg/mg Normal [facility] Comment on above: Performed By: #### C MP #### [facility] [address] [place] [address] Dr. Hadley Keating URINE MICROSCOPIC ONLYon BACTERIA TRACE Abnormal NONE SEEN [facility] Comment on above: Performed By: #### F T4 #### [facility] [address] [place] [address] Dr. Hadley Keating Bacteria identified Cx Nom (U) INDICATED Normal [facility] Comment on above: Performed By: #### F T4 #### [facility] [address] [place] [address] Dr. Hadley Keating CAST NONE SEEN Normal NONE SEEN [facility] Comment on above: Performed By: #### F T4 #### [facility] [address] [place] [address] Dr. Hadley Keating Crystals LM Nom (Urine sed) NONE SEEN Normal NONE SEEN [facility] Comment on above: Performed By: #### F T4 #### [facility] [address] [place] [address] Dr. Hadley Keating Epithelial cells LM Ql (Urine sed) RARE Normal NONE SEEN /RARE [facility] Comment on above: Performed By: #### F T4 #### [facility] [address] [place] [address] Dr. Hadley Keating MUCOUS NONE SEEN Normal NONE SEEN [facility] Comment on above: Performed By: #### F T4 #### [facility] [address] [place] [address] Dr. Hadley Keating RBC 0-2 Normal 0-2 [facility] Comment on above: Performed By: #### F T4 #### [facility] [address] [place] [address] Dr. Hadley Keating WBC 10-20 Abnormal NONE SEEN [facility] Comment on above: Performed By: #### F T4 #### [facility] [address] [place] [address] Dr. Hadley Keating COVID Quick Testingon 2020 Result Negative [facility] Other Albumin [Mass/volume] in Ser um or PlasmaOrdered By: Tanya Washington on 04-28-2021 Albumin [Mass/Vol] 3.6 g/dL 2.9-4.4 [facility] IgA [Mass/volume] in Serum o r PlasmaOrdered By: Tanya Washington on 04-28-2021 IgA [Mass/Vol] 342 mg/dL 87-352 [facility] IgG [Mass/volume] in Serum o r PlasmaOrdered By: Tanya Washington on 04-28-2021 IgG [Mass/Vol] 1223 mg/dL 586-1602 [facility] IgM [Mass/volume] in Serum o r PlasmaOrdered By: Tanya Washington on 04-28-2021 IgM [Mass/Vol] 33 mg/dL 26-217 [facility] Comment on above: Performed at: [address], [place], [place] [id number] Director: Kings Robles PhD, Phone: [phone] Immunoglobulin light chains. kappa.free [Mass/volume] in SerumOrdered By: Tanya Washington on 04-28-2021 Immunoglobulin light chains.kappa.free (S) [Mass/Vol] 18.9 mg/L 3.3-19.4 [facility] Immunoglobulin light chains. kappa.free/Immunoglobulin light chains.lambda.free [MassOrdered By: Tanya Washington on 04-28-2021 Immunoglobulin light chains.kappa.free/Immun oglobulin light chains.lambda.free (S) [Mass ratio] 1.39 0.26-1.65 [facility] Comment on above: Performed at: [employer] [address] [id number] Director: Kings Robles PhD, Phone: [phone] Immunoglobulin light chains. lambda.free [Mass/volume] in Serum or PlasmaOrdered By: Tanya Washington on 04-28-2021 Immunoglobulin light chains.lambda.free [Mass/Vol] 13.6 mg/L 5.7-26.3 [facility] No Panel InformationOrdered By: Tanya Washington on 04-28-2021 Protein Electrophoresis M-Anurag Not observed g/dL Not Observed [facility] Protein Electrophoresis Note See comment . [facility] Comment on above: Protein electrophore sis scan will follow via computer,mail, or information resources manager delivery.Performed at: [facility] [id number] Director: Kings Robles PhD, Phone: [phone] Serum Immunofixation See comment . [facility] Comment on above: No monoclonality det ected. Protein [Mass/volume] in Ser um or PlasmaOrdered By: Tanya Washington on 04-28-2021 Protein [Mass/Vol] 7.1 g/dL 6.0-8.5 [facility] Serum globulin measurement ( mass/volume)Ordered By: Tanya Washington on 04-28-2021 Globulin (S) [Mass/Vol] 3.5 g/dL 2.2-3.9 [facility] Serum or plasma albumin/glob ulin mass ratioOrdered By: Tanya Washington on 04-28-2021 Albumin/Globulin [Mass ratio] 1.0 {ratio} 0.7-1.7 [facility] Serum or plasma alpha 1 glob ulin measurement by electrophoresis (mass/volume)Ordered By: Tanya Washington on 04-28-2021 Alpha 1 globulin Elph [Mass/Vol] 0.3 g/dL 0.0-0.4 [facility] Serum or plasma alpha 2 glob ulin measurement by electrophoresis (mass/volume)Ordered By: Tanya Washington on 04-28-2021 Alpha 2 globulin Elph [Mass/Vol] 0.7 g/dL 0.4-1.0 [facility] Serum or plasma beta globuli n measurement by electrophoresis (mass/volume)Ordered By: Tanya Washington on 04-28-2021 Beta globulin Elph [Mass/Vol] 1.2 g/dL 0.7-1.3 [facility] Serum or plasma gamma globul in measurement by electrophoresis (mass/volume)Ordered By: Tanya Washington on 04-28-2021 Gamma globulin Elph [Mass/Vol] 1.3 g/dL 0.4-1.8 [facility] Albumin [Mass/volume] in Bod y fluidon 11-21-2020 Albumin (Body fld) [Mass/Vol] 4.0 g/dL 3.2-5.5 [facility] Alkaline phosphatase [Enzyma tic activity/volume] in Serum or Plasmaon 11-21-2020 ALP [Catalytic activity/Vol] 68 U/L 32-92 [facility] Aspartate aminotransferase [ Enzymatic activity/volume] in Serum or Plasmaon 11-21-2020 AST [Catalytic activity/Vol] 27 U/L 10-42 [facility] Basophils Auto (Bld) [#/Vol] on 11-21-2020 Basophils (Bld) [#/Vol] 0.0 10*3/uL 0.0-0.2 [facility] Basophils/100 WBC Auto (Bld) on 11-21-2020 Basophils/100 WBC (Bld) 0.3 % . F [facility] Bilirubin.total [Mass/volume ] in Serum or Plasmaon 11-21-2020 Bilirubin [Mass/Vol] 0.6 mg/dL 0.3-1.[address] [facility] Calcium [Mass/volume] in Ser um or Plasmaon 11-21-2020 Calcium [Mass/Vol] 9.4 mg/dL 8.2-10.2 [facility] Carbon dioxide, total [Moles /volume] in Serum or Plasmaon 11-21-2020 CO2 [Moles/Vol] 21.6 mmol/L 22.0-30.0 [facility] Chloride [Moles/volume] in S sam or Plasmaon 11-21-2020 Chloride [Moles/Vol] 98 mmol/L 95-[address] [facility] Creatinine and Glomerular fi ltration rate.predicted panel (S/P/Bld)on 11-21-2020 Creatinine [Mass/Vol] 0.86 mg/dL 0.44-1.03 [facility] Eosinophils Auto (Bld) [#/Vo l]on 11-21-2020 Eosinophils (Bld) [#/Vol] 0.0 10*3/uL 0.0-0.45 [facility] Eosinophils/100 WBC Auto (Bl d)on 11-21-2020 Eosinophils/100 WBC (Bld) 0.1 % . [facility] Erythrocyte distribution wid th Auto (RBC) [Ratio]on 11-21-2020 Erythrocyte distribution width (RBC) [Ratio] 15.0 % 11.9-15.3 [facility] Estimated glomerular filtrat ion rate (GFR) non- Americanon 11-21-2020 GFR/1.73 sq M.predicted among non-blacks MDRD (S/P/Bld) [Vol rate/Area] > 60 mL/Min [facility] Globulin Calc (S) [Mass/Vol] on 11-21-2020 Globulin (S) [Mass/Vol] 3.4 g/dL [facility] Glucose [Mass/volume] in Ser um or Plasmaon 11-21-2020 Glucose [Mass/Vol] 361 mg/dL 70-100 [facility] Comment on above: ADA recommended refe rence rangeRandom Glucose Reference Range is dependent on time and content of last meal. Glucose of more than 200 mg/dL in a nonstressed, ambulatory subject supports the diagnosis of Diabetes Mellitus. Hematocrit Auto (Bld) [Volum e fraction]on 11-21-2020 Hematocrit (Bld) [Volume fraction] 43.8 % 34.0-46.4 [facility] Hemoglobin [Mass/volume] in Bloodon 11-21-2020 Hemoglobin (Bld) [Mass/Vol] 15.2 g/dL 11.8-15.4 [facility] Laboratory - Hematology and Cell countson 11-21-2020 Nucleated RBC/100 WBC (Bld) [Ratio] 0.2 % 0-0.5 [facility] Leukocytes [#/volume] in Blo od by Automated counton 11-21-2020 WBC (Bld) [#/Vol] 7.7 10*3/uL 4.5-11.0 [facility] Lymphocytes Auto (Bld) [#/Vo l]on 11-21-2020 Lymphocytes (Bld) [#/Vol] 1.5 10*3/uL 1.00-4.8 [facility] Lymphocytes/100 WBC Auto (Bl d)on 11-21-2020 Lymphocytes/100 WBC (Bld) 18.8 % . [facility] MCH Auto (RBC) [Entitic mass ]on 11-21-2020 MCH (RBC) [Entitic mass] 29.3 pg 24.7-34.3 [facility] MCHC Auto (RBC) [Mass/Vol]on 11-21-2020 MCHC (RBC) [Mass/Vol] 34.7 g/dL 32.0-35.0 [facility] MCV Auto (RBC) [Entitic vol] on 11-21-2020 MCV (RBC) [Entitic vol] 84.4 fL 80-100 [facility] Monocytes Auto (Bld) [#/Vol] on 11-21-2020 Monocytes (Bld) [#/Vol] 0.3 10*3/uL 0.0-0.8 [facility] Monocytes/100 WBC Auto (Bld) on 11-21-2020 Monocytes/100 WBC (Bld) 3.8 % . [facility] Neutrophils Auto (Bld) [#/Vo l]on 11-21-2020 Neutrophils (Bld) [#/Vol] 5.9 10*3/uL 1.8-7.7 [facility] Neutrophils/100 WBC Auto (Bl d)on 11-21-2020 Neutrophils/100 WBC (Bld) 77.0 % . [facility] No Panel Informationon 11-21 Estimated GFR () > 60 mL/Min [facility] Comment on above: GFR estimated refere nce range: According to KDOQI guidelines, <60 ml/min/1.73m2 is sufficient to diagnose a patient with chronic kidney disease. Pharmacy Creatinine Clearance (Chem 89.66 [facility] Platelet mean volume Auto (B ld) [Entitic vol]on 11-21-2020 Platelet mean volume (Bld) [Entitic vol] 7.3 fL 6.3-10.7 [facility] Platelets Auto (Bld) [#/Vol] on 11-21-2020 Platelets (Bld) [#/Vol] 278 10*3/uL 150-450 [facility] Potassium [Moles/volume] in Serum or Plasmaon 11-21-2020 Potassium [Moles/Vol] 3.8 mmol/L 3.5-5.1 [facility] Protein [Mass/volume] in Ser um or Plasmaon 11-21-2020 Protein [Mass/Vol] 7.4 g/dL 6.1-7.9 [facility] RBC Auto (Bld) [#/Vol]on RBC (Bld) [#/Vol] 5.19 10*6/uL 3.60-5.00 [facility] Serum or plasma alanine calero otransferase measurement without P-5'-P (enzymatic activion 11-21-2020 ALT No additional P-5'-P [Catalytic activity/Vol] 17 U/L 10-60 [facility] Serum or plasma albumin/glob ulin mass ratioon 11-21-2020 Albumin/Globulin [Mass ratio] 1.2 {ratio} [facility] Sodium [Moles/volume] in Ser um or Plasmaon 11-21-2020 Sodium [Moles/Vol] 133 mmol/L 136-146 [facility] TSH DL <= 0.005 mIU/L Qnon 0 11-21-2020 TSH Qn 1.74 m[IU]/L 0.45-5.33 [facility] Urea nitrogen [Mass/volume] in Serum or Plasmaon 11-21-2020 Urea nitrogen [Mass/Vol] 18 mg/dL 9-23 [facility] Laboratory - Hematology and Cell countson 11-29-2018 WBC (Bld) [#/Vol] 3.5 10*3/uL 4.5-11.0 [facility] Automated erythrocytes count in urine sediment (number/area)on 11-05-2018 RBC Auto (Urine sed) [#/Area] 1-2 [HPF] 0-4 [facility] Automated leukocytes count i n urine sediment (number/area)on 11-05-2018 WBC Auto (Urine sed) [#/Area] Innumerable [HPF] 0-4 [facility] Automated urine hyaline cast s count (number/volume)on 11-05-2018 Hyaline casts Auto (U) [#/Vol] None seen [LPF] 0-1 [facility] Bilirubin Test strip Ql (U)o n 11-05-2018 Bilirubin Ql (U) Negative Negative [facility] Color Auto (U)on 11-05-2018 Color (U) Yellow Yellow [facility] Ketones Auto test strip (U) [Mass/Vol]on 11-05-2018 Ketones (U) [Mass/Vol] Negative Negative [facility] Mucus LM Ql (Urine sed)on Mucus Ql (Urine sed) 1+ [LPF] [facility] Nitrite Test strip Ql (U)on 11-05-2018 Nitrite Ql (U) Negative Negative [facility] Protein Auto test strip (U) [Mass/Vol]on 11-05-2018 Protein (U) [Mass/Vol] Negative Negative [facility] Specific gravity Auto test s trip (U) [Rel density]on 11-05-2018 Specific gravity (U) [Rel density] 1.025 1.001-1.030 [facility] Squamous epithelial cells de tection in urine sediment by light microscopyon 04-08-2019 Epithelial cells.squamous LM Ql (Urine sed) 1-2 [HPF] 0-2 [facility] Urine bacteria detection by automated methodon 11-05-2018 Bacteria Auto Ql (U) None seen None Seen [facility] Urine clarity by refractomet ry automatedon 11-05-2018 Clarity Refractometry automated (U) Clear Clear [facility] Urine glucose measurement by automated test strip (mass/volume)on 11-05-2018 Glucose Auto test strip (U) [Mass/Vol] Normal mg/dL Normal [facility] Urine hemoglobin detection b y automated test stripon 11-05-2018 Hemoglobin Auto test strip Ql (U) Trace Negative [facility] Urine leukocyte esterase det ection by automated test stripon 11-05-2018 Leukocyte esterase Auto test strip Ql (U) 4+ Negative [facility] Urobilinogen Auto test strip (U) [Mass/Vol]on 11-05-2018 Urobilinogen (U) [Mass/Vol] Normal mg/dL Normal [facility] pH Auto test strip (U)on pH (U) 5.0 [pH] 5.0-9.0 [facility] Blood anisocytosis detection on 08-16-2018 Anisocytosis Ql (Bld) Slight [facility] No Panel Informationon 08-16 Microcytosis Slight [facility] Platelet Estimate Normal Normal [facility] Platelet Morphology Comment Normal Normal [facility] Polychromasia [Presence] in Blood by Light microscopyon 08-16-2018 Polychromasia LM Ql (Bld) Slight [facility] RBC morphologyon 08-16-2018 RBC morphology finding Nom (Bld) N/A [facility] Laboratory - Hematology and Cell countson 07-18-2018 Band form neutrophils/100 WBC (Bld) 1 % 0-5 [facility] Lymphocytes/100 WBC Auto (Bl d)on 07-18-2018 Lymphocytes/100 WBC (Bld) 8 % 18-42 [facility] Metamyelocytes/100 WBC Manua l cnt (Bld)on 07-18-2018 Metamyelocytes/100 WBC (Bld) 2 % 0-0 [facility] Monocytes/100 WBC Manual cnt (Bld)on 07-18-2018 Monocytes/100 WBC (Bld) 7 % 2-11 F [facility] Myelocytes/100 WBC Manual cn t (Bld)on 07-18-2018 Myelocytes/100 WBC (Bld) 2 % 0-0 [facility] Segmented neutrophils/100 WB C Manual cnt (Bld)on 07-18-2018 Segmented neutrophils/100 WBC (Bld) 80 % 50-70 [facility] Dermatopathologyon 8 Dermatopathology Pathologist: TRISH BOYLE MD Date of Procedure: 01/01/2018 Date Received: 01/02/2018 Date Reported 01/03/2018 Submitting Physician: DENZEL LUCERO MD Location: [facility] FINAL DIAGNOSIS A. SKIN, RIGHT LATERAL LEG, EXCISION: INVASIVE SQUAMOUS CELL CARCINOMA, WELL DIFFERENTIATED, INKED MARGINS FREE IN PLANES OF SECTIONS EXAMINED. B. SKIN, RIGHT CALF, EXCISION: INVASIVE SQUAMOUS CELL CARCINOMA, WELL DIFFERENTIATED, INKED MARGINS FREE IN PLANES OF SECTIONS EXAMINED. Electronically Signed Out by TRISH BOYLE M.D. Electronically Signed Out By TRISH BOYLE MD/[facility] Microscopic Description: A: Microscopic analysis shows irregular growth of keratinocytes that are associated with the epidermis and invade the dermis in isolated islands and strands. Horn pearls and partial keratinization are present. The basal cells are poorly demarcated from the stroma. Atypia is mild, and mitoses are rare. B: Microscopic analysis shows irregular growth of keratinocytes that are associated with the epidermis and invade the dermis in isolated islands and strands. Horn pearls and partial keratinization are present. The basal cells are poorly demarcated from the stroma. Atypia is mild, and mitoses are rare. Clinical History: A,B: [id number]. Excisions. ([facility]) Specimens Submitted As: A: SKIN, RIGHT LATERAL LEG B: SKIN, RIGHT CALF Gross Description: A: Received in formalin is a bradford piece of skin measuring [id number]. The specimen is inked and embedded in toto in two blocks. B: Received in formalin is a bradford-brown piece of skin measuring [id number]. The specimen is inked and embedded in toto in three blocks. ink/01/02/2018 Normal [facility] Comment on above: Performed By: #### D #### Dermatopathology RETINOID PANELon 01-01-2018 ALT enzyme act/vol 16 U/L Normal 7 - 45 [facility] Comment on above: Result Comment: Tania ents treated with Sulfasalazine may generate falsely decreased results for ALT. Performed By: #### R ETN2 #### [facility] [address] [address] AST enzyme act/vol 24 U/L Normal 9 - 39 [facility] Comment on above: Performed By: #### R ETN2 #### [facility] [address] [address] Triglyceride mass conc 273 mg/dL High 0 - 149 [facility] Comment on above: Result Comment: . AGE DESIRABLE BORDERLINE HIGH HIGH VERY HIGH 0 D-90 D 19 - 174 ---- ---- ---- 91 D- 9 Y 0 - 74 75 - 99 >/= 100 ---- 10-19 Y 0 - 89 90 - 129 >/= 130 ---- 20-24 Y 0 - 114 115 - 149 >/= 150 ---- >24 Y 0 - 149 150 - 199 200- 499 >/= 500 . Venipuncture immediately after or during the administration of Metamizole may lead to falsely low results. Testing should be performed immediately prior to Metamizole dosing. Performed By: #### R ETN2 #### [facility] [address] [address] Erythrocyte distribution width Ratio (RBC) 13.5 % Normal 11.5 - 14.5 [facility] Comment on above: Performed By: #### R ETN2 #### [facility] [address] [address] Hematocrit Volume Fraction (Bld) 44.0 % Normal 36.0 - 46.0 [facility] Comment on above: Performed By: #### R ETN2 #### [facility] [address] [place] [address] Hemoglobin mass conc (Bld) 14.7 g/dL Normal 12.0 - 16.0 [facility] Comment on above: Performed By: #### R ETN2 #### [facility] [address] [place] [address] MCHC mass conc (RBC) 33.4 g/dL Normal 32.0 - 36.0 [facility] Comment on above: Performed By: #### R ETN2 #### [facility] [address] [place] [address] MCV Entitic volume (RBC) 88 fL Normal 80 - 100 [facility] Comment on above: Performed By: #### R ETN2 #### [facility] [address] [place] [address] Nucleated RBC/100 WBC Ratio (Bld) 0.0 /100 WBC Normal 0.0-0.0 [facility] Comment on above: Performed By: #### R ETN2 #### [facility] [address] [place] [address] Platelets #/vol (Bld) 284 10*3/uL Normal 150 - 450 [facility] Comment on above: Performed By: #### R ETN2 #### [facility] [address] [place] [address] RBC #/vol (Bld) 4.98 x10E12/L Normal 4.00 - 5.20 [facility] Comment on above: Performed By: #### R ETN2 #### [facility] [address] [place] [address] WBC #/vol (Bld) 8.6 10*3/uL Normal 4.4 - 11.3 [facility] Comment on above: Performed By: #### R ETN2 #### [facility] [address] [place] [address] Vital Signs Date Time Vital Sign Value Performing Clinician Facility 05-18-2023 15:40-0400 Body temperature 97.8 [degF] MD Albert Christianson Work Phone: [facility] 05-18-2023 15:40-0400 Body weight 93.44 kg MD Albert Christianson Work Phone: [facility] 05-18-2023 15:40-0400 Diastolic blood pressure 79 mm[Hg] MD Albert Christianson Work Phone: [facility] 05-18-2023 15:40-0400 Heart rate 89 /min MD Albert Christianson Work Phone: [facility] 05-18-2023 15:40-0400 Respiratory rate 16 /min MD Albert Christianson Work Phone: [facility] 05-18-2023 15:40-0400 SaO2% (BldA) [Mass fraction] 98 % MD Albert Christianson Work Phone: [facility] 05-18-2023 15:40-0400 Systolic blood pressure 120 mm[Hg] MD Albert Christianson Work Phone: [facility] 03-13-2023 09:15-0400 Body height 157.48 cm Renu Chris Other [facility] Other 03-13-2023 09:15-0400 Body mass index (BMI) [Ratio] 37.71 kg/m2 Renu Chris Other [facility] Other 03-13-2023 09:15-0400 Body temperature 97.8 [degF] Renu Chris Other [facility] Other 03-13-2023 09:15-0400 Body weight 93.53 kg Renu Chris Other [facility] Other 03-13-2023 09:15-0400 Diastolic blood pressure 77 mm[Hg] Renu Chris Other [facility] Other 03-13-2023 09:15-0400 Respiratory rate 18 /min Renu Chris Other [facility] Other 03-13-2023 09:15-0400 SaO2% (BldA) [Mass fraction] 98 % Renu Chris Other [facility] Other 03-13-2023 09:15-0400 Systolic blood pressure 122 mm[Hg] Renu Chris Other [facility] Other 02-22-2023 09:10-0400 Body height 157.48 cm Leti Ashfordmond Other [facility] Other 02-22-2023 09:10-0400 Body mass index (BMI) [Ratio] 37.67 kg/m2 Leti Jessi Other [facility] Other 02-22-2023 09:10-0400 Body temperature 97.8 [degF] Leti Ashfordmond Other [facility] Other 02-22-2023 09:10-0400 Body weight 93.44 kg Leti Jessi Other [facility] Other 02-22-2023 09:10-0400 Diastolic blood pressure 87 mm[Hg] Leti Jessi Other [facility] Other 02-22-2023 09:10-0400 Respiratory rate 18 /min Leti Jessi Other [facility] Other 02-22-2023 09:10-0400 SaO2% (BldA) [Mass fraction] 98 % Leti Jessi Other [facility] Other 02-22-2023 09:10-0400 Systolic blood pressure 147 mm[Hg] Leti Jessi Other [facility] Other 01-05-2023 14:45-0400 Body height 157.48 cm Corey Grider Other [facility] Other 01-05-2023 14:45-0400 Body temperature 97.3 [degF] Corey Grider Other [facility] Other 01-05-2023 14:45-0400 Diastolic blood pressure 87 mm[Hg] Corey Grider Other [facility] Other 01-05-2023 14:45-0400 Systolic blood pressure 129 mm[Hg] Corey Grider Other [facility] Other 05-12-2022 17:30-0400 Body height 157.48 cm Adriana José Manuel Other [facility] Other 05-12-2022 17:30-0400 Body mass index (BMI) [Ratio] 34.75 kg/m2 Adriana José Manuel Other [facility] Other 05-12-2022 17:30-0400 Body temperature 98 [degF] Adriana José Manuel Other [facility] Other 05-12-2022 17:30-0400 Body weight 86.18 kg Adriana José Manuel Other [facility] Other 05-12-2022 17:30-0400 Diastolic blood pressure 62 mm[Hg] Adriana José Manuel Other [facility] Other 05-12-2022 17:30-0400 Respiratory rate 18 /min Adriana José Manuel Other [facility] Other 05-12-2022 17:30-0400 SaO2% (BldA) [Mass fraction] 98 % Adriana Georges Other [facility] Other 05-12-2022 17:30-0400 Systolic blood pressure 99 mm[Hg] Adriana Georges Other [facility] Other 11-10-2021 14:41-0400 Body height 160.02 cm MD Albert Christianson Work Phone: [facility] 10-28-2021 14:45-0400 Body height 157.48 cm Corey Grider Other [facility] Other 10-28-2021 14:45-0400 Body mass index (BMI) [Ratio] 38.41 kg/m2 Corey Grider Other [facility] Other 10-28-2021 14:45-0400 Body temperature 97.1 [degF] Corey Grider Other [facility] Other 10-28-2021 14:45-0400 Body weight 95.26 kg Corey Grider Other [facility] Other 10-28-2021 14:45-0400 Diastolic blood pressure 76 mm[Hg] Corey Grider Other [facility] Other 10-28-2021 14:45-0400 Systolic blood pressure 118 mm[Hg] Corey Grider Other [facility] Other 07-13-2021 11:00-0500 Body height 157.48 cm Nadeem Dorantes Other [facility] Other 07-13-2021 11:00-0500 Body temperature 98.2 [degF] Nadeem Dorantes Other [facility] Other 07-13-2021 11:00-0500 Respiratory rate 18 /min Nadeem Dorantes Other [facility] Other 07-13-2021 11:00-0500 SaO2% (BldA) [Mass fraction] 98 % Nadeem Dorantes Other [facility] Other Encounters Encounter Date Encounter Type Care Provider Facility Start: 10-19-2023 End: 10-19-2023 ambulatory Paulino Clemens Facility:[facility] Start: 10-19-2023 End: 10-19-2023 ambulatory MD Albert Christianson Work Phone: [facility] Work Phone: Start: 10-19-2023 End: 10-19-2023 Patient encounter procedure MD Albert Christianson Work Phone: [facility] [address] Work Phone: Start: 09-20-2023 End: 09-21-2023 ambulatory Jessica L Brown Facility:[facility] Start: 09-20-2023 End: 09-20-2023 Patient encounter procedure Jessica L Brown [facility] Start: 09-12-2023 End: 09-13-2023 ambulatory Jessica L Brown Facility:[facility] Ondina jones Start: 06-19-2023 End: 06-20-2023 ambulatory Jessica L Brown Facility:[facility] Start: 06-19-2023 End: 06-19-2023 Lab Drop off Jessica L Brown [facility] Start: 06-12-2023 End: 06-12-2023 ambulatory SAIRA DHALIWAL Not Available Start: 05-22-2023 End: 05-23-2023 ambulatory Jessica L Brown Facility:[facility] Start: 05-18-2023 ambulatory Tanya Felix Facility:[facility] Start: 05-18-2023 End: 05-18-2023 ambulatory MD Albert Christianson Work Phone: [facility] Work Phone: Start: 05-18-2023 End: 05-18-2023 Registered Recurring MD Albert Christianson Work Phone: [facility] Work Phone: Start: 05-16-2023 End: 05-17-2023 ambulatory Jessica L Brown Facility:[facility] Start: 05-15-2023 End: 06-19-2023 ambulatory Jessica L Brown Facility:[id number] Start: 05-01-2023 End: 05-01-2023 ambulatory MD Albert Christianson Work Phone: [facility] Work Phone: Start: 05-01-2023 End: 05-01-2023 Patient encounter procedure MD Albert Christianson Work Phone: [facility] Start: 04-17-2023 End: 04-18-2023 ambulatory Jessica L Brown Facility:[facility] Start: 03-31-2023 ambulatory Jessica L Brown Facility: [facility] Start: 03-14-2023 End: 03-14-2023 ambulatory Jannet Chatman Other [facility] Other Start: 03-14-2023 Nursing evaluation o f patient and report Jannet Chatman [facility] Start: 03-13-2023 End: 03-13-2023 ambulatory Renu Chris Other [facility] Other Start: 03-13-2023 Office outpatient visit 15 minutes Renu Chris [facility] Start: 03-03-2023 End: 03-04-2023 ambulatory Jessica L Brown Facility:[facility] Start: 02-22-2023 End: 02-22-2023 ambulatory Leti Bowen Other [facility] Other Start: 02-22-2023 Office outpatient visit 15 minutes Leti Bowen [facility] Start: 02-13-2023 End: 02-13-2023 ambulatory Ze WALKER Facility:[facility] Start: 01-05-2023 End: 01-05-2023 ambulatory Jessica L [facility] Other Start: 01-05-2023 Office outpatient visit 25 minutes Corey Grider [facility] Start: 12-21-2022 ambulatory Jessica Dasilva Facility: [facility] Start: 12-13-2022 End: 12-14-2022 ambulatory ALBERT CHRISTIANSON Facility:[facility] Start: 12-10-2022 End: 12-10-2022 ambulatory TERRENCE PEARSON . Facility:[facility] Start: 10-25-2022 End: 10-25-2022 ambulatory Jessica Hernandezradhaminal Facility:[facility] Start: 10-17-[address] SAIRA DHALIWAL . Fac ility:[facility] Start: 05-12-2022 End: 05-12-2022 ambulatory Adriana Georges Other [facility] Other Start: 05-12-2022 Office outpatient visit 15 minutes Adriana Georges [facility] Start: 03-22-2022 End: 03-22-2022 ambulatory Joe Mei Other [facility] Other Start: 03-22-2022 Nursing evaluation o f patient and report Joe Mei [facility] Start: 03-19-2022 End: 03-20-[address] SAIRA DHALIWAL . Facility:[facility] Start: 02-10-[address] TANYA WASHINGTON Facility :[facility] Start: 02-08-2022 End: 02-09-[address] ALBERT CHRISTIANSON . Facility:[facility] Start: 01-20-2022 End: 01-21-[address] ALBERT CHRISTIANSON . Facility:[facility] Start: 12-31-2021 End: 12-31-[address] DANIEL AGOSTO . Facility:[facility] Start: 12-30-2021 ([facility] INJ) [facility] Injection Cindyfabio Goetz [facility] Start: 12-30-2021 End: 12-30-2021 ambulatory Cindy Goetz Other [facility] Other Start: 11-05-2021 End: 11-05-2021 ambulatory Corey Grider Other [facility] Other Start: 11-05-2021 Telephone encounter [facility] Start: 11-04-2021 End: 11-04-2021 ambulatory Corey Grider Other [facility] Other Start: 11-04-2021 Telephone encounter Corey MCKEON [facility] Start: 10-28-2021 End: 10-28-2021 ambulatory Corey Grider Other [facility] Other Start: 10-28-2021 Office outpatient ne w 45 minutes Corey Grider [facility] Start: 07-13-2021 End: 07-13-2021 ambulatory Nadeem Dorantes Other [facility] Other Start: 07-13-2021 Office outpatient visit 15 minutes Nadeem Dorantes [facility] [address] Procedures Date Procedure Procedure Detail Performing Clinician Start: 05-12-2022 Piperacillin/tazobactam Adriana Georges Other Start: 05-12-2022 Urine culture MD Albert galindo Work Phone: Start: 05-12-2022 Ultrasonography of limb MD Albert Christianson Work Phone: Start: 01-25-2022 Dual energy X-ray absorptiometry MD Albert Christianson Work Phone: Start: 04-19-2021 Ultrasonography of limb MD Albert Christianson Work Phone: Start: 07-17-2020 CT of thorax with contrast MD Albert Christianson Work Phone: Start: 03-27-2020 Ultrasound procedure on topographic region MD Albert Christianson Work Phone: Start: 03-13-2020 Computed tomography of abdomen and pelvis with contrast MD Albert Christianson Work Phone: Start: 03-13-2020 CT of thorax with contrast MD Albert Christianson Work Phone: Start: 03-13-2020 NM bone scan whole body MD Albert Christianson Work Phone: Start: 01-21-2020 Dual energy X-ray absorptiometry MD Albert Christianson Work Phone: Start: 03-22-2019 Ultrasound procedure on topographic region MD Albert Christianson Work Phone: Start: 12-19-2018 Ultrasonography of breast MD Albert Christianson Work Phone: Start: 07-11-2018 CT chest w con MD Albert ozuna Work Phone: Start: 07-11-2018 NM bone scan whole body MD Albert Christianson Work Phone: Start: 07-11-2018 Computed tomography of abdomen and pelvis with contrast MD Albert Christianson Work Phone: Bilateral mastectomy Jessica Sc hwab Cervical biopsy Jessica Brown Chemotherapy Jessica Brown Colonoscopy Jessica Brown Excision of axillary lymph node Jessica Brown History of nasal sin us surgery Jessica Brown Other (qualifier value) Jessica Brown Comment on above: squamous cell ca exc ision 2 areas right leg Plan of Treatment Date Care Activity Detail Author Start: 11-10-2021 [facility] Start: 09-07-2018 [facility] Start: 07-06-2018 [facility] Start: 06-08-2018 [facility] Bacteria identified in Urine by Culture [facility] Estradiol (E2) [Mass /volume] in Serum or Plasma [facility] Estradiol (E2) [Mass /volume] in Serum or Plasma [facility] Lutropin [Units/volu me] in Serum or Plasma [facility] Lutropin [Units/volu me] in Serum or Plasma [facility] Immunizations Immunization Date Immunization Notes Care Provider Fa cility 12-30-2021 zoster vaccine recombinant Cindy Fitt Other [facility] 09-13-2020 SARS-CoV-2 (COVID-19 ) mRNA-1273 vaccine Jessica Brown [facility] 08-26-2020 COVID-19 mRNA-1273 (Moderna) MD Albert Christianson Work Phone: [facility] 07-31-2020 SARS-CoV-2 (COVID-19 ) mRNA-1273 vaccine Jessica Brown [facility] 07-29-2020 COVID-19 mRNA-1273 (Moderna) MD Albert Christianson Work Phone: [facility] 03-31-2020 influenza virus vaccine, unspecified formulation Jessica Brown [facility] Payers Date Payer Category Payer Unknown [id number] 2.16.84 [id number] 1972 Unknown [id number] 0.1.889248.3.579.2.593 1972 Unknown [id number] 2.16.84 0.1.272764.3.579.2.593 1972 Unknown [id number] 2.16.84 0.1.096697.3.579.2.593 1972 Unknown [id number] 2.16.84 0.1.098287.3.579.2.593 1972 Unknown [id number] 2.16.84 0.1.147135.3.579.2.593 1972 Unknown [id number] 2.16.84 0.1.871965.3.579.2.593 1972 Unknown [id number] 2.16.840. 1.141632.3.579.2.1259 1972 Unknown [id number] 2.16.8 40.1.180529.3.579.2.727 1972 Unknown [id number] 2.16.8 40.1.126940.3.579.2.727 1972 Unknown [id number] 2.16.8 40.1.380837.3.579.2.727 1972 Unknown [id number] 2.16.8 40.1.723466.3.579.2.727 1972 Unknown [id number] 2.16.8 40.1.301179.3.579.2.727 1972 Unknown [id number] 2.16.8 40.1.187577.3.579.2.727 1972 Unknown [id number] 2.16.8 40.1.151880.3.579.2.727 1972 Unknown [id number] 2.16.8 40.1.450390.3.579.2.727 1972 Unknown [id number] 2.16.8 40.1.069324.3.579.2.727 1972 Unknown [id number] 2.16.8 40.1.917758.3.579.2.727 1959 Private Health Insurance [id number] Self-pay 1959 Unknown [id number] 2. 16.840.1.010735.19 Private Health Insurance [id number] 2.16.840.1.695951.19 Unknown [id number] 2.16.8 40.1.667882.3.579.2.531 Unknown [id number] 2.16.8 40.1.183366.3.579.2.531 Unknown [id number] 2.16.8 40.1.550923.3.579.2.531 Unknown [id number] 2.16.8 40.1.271773.3.579.2.531 Unknown [id number] 2.16.8 40.1.478616.3.579.2.531 Social History Date Type Detail Facility Unknown if ever smoked [facility] Other Sex Assigned At [facility] Start: 05-18-2023 End: 09-12-2023 Tobacco smoking status NHIS Never smoked tobacco (finding) [facility] Start: 1970 Sex Assigned At Female F [facility] Tobacco smoking status Never [facility] Clinical Notes 06-09-2018 to 06-19-2023 Laboratory Note Date & Type Note Facility 06-19-2023 Evaluation + Plan note Diagnostic Tests PendingUrine Culture 06/19/23 Future Scheduled TestsUrinalysis 12/13/22 [facility] 05-17-2023 Note [id number] 05-15-2023 Note [id number]#[id number] 05-15-2023 Note [id number]#[id number] Comment on above: Other Comment: INCOM PLETE FAX. [facility] 03-14-2023 Evaluation note Encounter Date Diagnosis Assessment Notes Feb, Contact with and (suspected) exposure to other viral communicable diseases (ICD-10 - Z20.828) [facility] Other 08-14-2023 Evaluation note* Encounter Date Diagnosis Assessment Notes Treatment Notes Treatment Clinical Notes Feb, Suspected COVID-19 virus infection (ICD-10 - Z20.822) Feb, Viral URI with cough (ICD-10 - J06.9) Discussed with patient PCR COVID is negative. However patient has known close contact exposure - her is positive, discussed she is still very high risk to contract COVID. At this time she may have other viral upper respiratory infection. Recommend she still wears a mask and is cautious around high risk individuals. Discussed typical duration of viral illness 7 to 12 days. Discussed symptomatic treatment such as Mucinex DM, antihistamine, Tylenol/ibuprofen. Follow-up with PCP if not improving over the next week. Discussed she should contact her employer and let them know that she has close contact COVID exposure, asymptomatic but had negative PCR to discuss if they would like her to quarantine or not. Patient verbalized understanding of treatment plan. [facility] Other 07-26-2023 Evaluation note* Encounter Date Diagnosis Assessment Notes Treatment Notes Treatment Clinical Notes Jan, Fatigue, unspecified type (ICD-10 - R53.83) Jan, Aphthous ulcer of mouth (ICD-10 - K12.0) Aphthous ulcers (canker sores) home care material was printed Drink plenty fluids, get plenty of rest. Use the mouthwash as prescribed. Continue home medications as prescribed. Get a new toothbrush. Keep your dentures very clean. Follow-up with your family physician next week as scheduled. [facility] Other 06-08-2023 Evaluation note* Encounter Date Diagnosis Assessment Notes Treatment Notes Treatment Clinical Notes Dec, Rash and nonspecific skin eruption (ICD-10 - R21) Given appearance of rash and the fact that she has already been on cefdinir then amoxicillin and steroids without significant resolution this rash very well could just be postviral in nature or obviously of fading bacterial related rash. Throat culture apparently was done and was negative. Favor checking ASO titer along with EBV titers. Routine labs also be sent given patient's ongoing fatigue and her history. Clinically though I do not feel there is any thing systemic that would benefit her in this rash at this time. Favor topical anti-itch routine [id number] lotion such as Sarna etc. Will await lab results and call her once these are back. If rash worsens or symptoms develop that are new she is always welcome to call me or if things are acutely bad to go to the emergency room. Dec, Fatigue, unspecified type (ICD-10 - R53.83) [facility] Other 05-16-2023 Evaluation + Plan note Future Scheduled Tests Laboratory* Urinalysis 12/13/22 [facility]10-13-2022 Progress note Author Tanya Washington [facility] May 12, 2022 7:31pm Note Date/Time May 12, 2022 3 :17pm [place] [address] Hem/Onc Follow Up Note - OP Signed Patient: Maria M Mckeon MR#: [id number] : 1970 Acct:[id number] Age/Sex: 51 / F Type: REG RCR Copies to: DO Albert Johns MD Philip M Hutchison~ Subjective Date/Time of Service: Date of Service: 05/12/2022 Time of Service: 15:17 Chief Complaint: Patient is here today for a 6 month follow up visit and go overdexa bone densitometry and extremity ultrasound HPI: 05/12/2022: Radha presents for 6 month followup of 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 No significant toxicities on Tamoxifen therapy and no changes on chest wall exam. She is followed by Dr. Grider for lymphadenitis suppurativa and does not use prophylactic antibiotics, but has doxycycline for breakthrough infections. Amenorrhea > 6 months but has FSH/LH/Estradiol still in premenopausal range. She is following a diet and has lost 25 lbs with increasing exercise. No bone pain. DEXA 01/27/22 reviewed showing mild osteopenia of spine, but normal bilateral hip T-scores. 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 May extend f/u to annual, sooner if new issues arise. Low complexity 25 min followup. 11/10/2021: Radha is here for 6 month follow-up for her breast cancer on tamoxifen. She denies any changes to her chest wall or axillae on self-exam. Shehas continued flares of cellulitis in her left arm and now follows with Dr. Grider. She recently had another infection and is finishing up her antibiotics this week. She states she likely will go on residential antibiotics if any additional infections arise after this. She continues with skin breakouts that are controlled with topical clobetasol. She also continues with lymphedema in her left arm that she typically wears her compression sleeve for, but not when she has an active infection. She has been having more frequent hot flashes this month that keep her up at night and has not had a menstrual period since July2020, so > 12 months. We will check LH, FSH and estradiol. She will have repeat DEXA scan in December and will follow-up with Dr. Washington in 6 months with left axillary US. If labs confirm she is now postmenopausal (as she is based on lack of menstrual period > 12 months) we will switch her therapy to Arimidex. She voiced understanding of this and denies any questions. 04/28/2021: Maria M is here for 5-month follow-up. She noted 2 hospitalizations for sepsis. She had a long hospitalization at [facility] in late November 2020 for methicillin sensitive staph bacteremia that arose from cellulitis of herleft arm. She completely recovered but then was hospitalized 2 weeks ago with left arm cellulitis again with the last prolonged hospital stay. She has completed her antibiotics. She continues to have skin breakouts over her groin area and still has an area in her gluteal fold that she is treating with topicalclobetasol. She also has required cortisone suppositories for her vaginal/vulvar disease. She continues to use tamoxifen alone for her breast cancer. She reports that her last menstrual period was in July 2020 without other menopausal symptoms. She is no longer on Humira for her skin disorder butwill be referred in the next few weeks to rheumatology here in [place] to evaluate for possible autoimmune etiologies. We have not performed an immune evaluation for her recurrent infections and I recommended sending quantitative immunoglobulins to determine if she has hypogammaglobulinemia. We also agreed to send LH, FSH, and estradiol level to determine if she is now postmenopausal. If so we will transition her to aromatase inhibitor therapy from tamoxifen. Jeni recent DEXA scan was in December 2019 and was normal. She should not require another DEXA scan if she transitions to AI therapy. No new pain, skin changes, or masses of bilateral chest wall. Left axillary fullness was evaluated with ultrasound 04/19/2020 showing no adenopathy. She will have a 2-week phone follow-up for review of results and we will determine whether she changes hormonal therapy at that time. 11/23/2020: Here for 4-month follow-up with no interval complaints. Since she has been on Humira her left axillary swelling is improved as is her left chest wall discomfort. We decided that since her CT in June showed no evidence ofaxillary adenopathy and Dr. Plunkett did not feel anything concerning on exam, we will defer her next left axillary ultrasound to prior to her March 2021 follow-up. She also reports a recent injury to her left leg and had a bone bruise but no other interval changes in her history. 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 We will defer next follow-up to her March 2021 which will be 3 years from original diagnosis and if no evidence of recurrence or follow-up will be every 6 months thereafter until 5 years. She continues tamoxifen 20 mg daily with some intermittent hot flashes but has an electronic cooling device that she wears on her right wrist which is effective. 07/27/2020: Virtual visit followup of CT Chest. Left chest wall discomfort tends to come and go. We reviewed CT of chest showing no evidence of recurrent or metastatic disease, although there was an incompletely imaged nodule that appeared to be consistent with a lymph node. She feels there may be some point tenderness over that area and her surgeon Dr. Mendoza from 2 years ago has now retired. She is agreeable to referral to Dr. Plunkett with general surgeryfor evaluation of this area and potential biopsy/resection if he feels this is indicated. She does note that her hot flashes have improved and we discussed potentially increasing her gabapentin dose, however we will continue to observe her symptoms. No other interval changes in medical history since her last visit07/08/2020. If assessment by general surgery is unremarkable she will follow-up with me in 4 months or sooner as needed. 07/08/2020: Maria M is here for 4 month followup. She reports increased left greater than right chest wall discomfort recently. No chest wall masses or significant lymphedema. No cough, but mild dyspnea and pain with deep inspiration. She had a fever last week but negative coronavirus testing. No bowel or bladder complaints--seeing dermatology and currently on an antibiotic course for a skin breakout with no recent axillary or groin outbreaks of hidradenitis suppurativa. Hot flashes stable on hormonal therapy. We will order chest CT for chest wall pain (prior bone scan negative in 02/2020) and contact her by phone with results. If negative, next f/u in 4 months. 03/11/2020: Maria M presents for 3 month followup, now nearly 2 years from diagnosis of [id number] right breast cancer, ER+, [place] neg, Her neg high risk Oncotype 47 s/p upfront bilateral mastectomy, adjuvant dose dense AC Taxol therapy, then tamoxifen. She notes that over the past month she has been havingrecurrent lumbar pain and cervical pain, worse with prolonged standing and walking. Denies any radiculopathy and has not had saddle paresthesias or changein bowel or bladder function. She has a history of vulvar lesions that were attributed to nabothian cysts in the past, however she feels that these are potentially associated with skin cancer and is planning to resume follow-up withDr. Clark of dermatology. The patient was hospitalized once since her last visit in November due to lactic acidosis that was attributed to her metformin therapy. Her primary physician Dr. Christianson has taken her off metformin and she is managing her diabetes with low carbohydrate diet only --She also discussed that she has known PTEN mutation and ask whether she shouldbe evaluated for pancreatic cancer surveillance. Per NCCN guidelines, there is no recommended pancreatic cancer surveillance for this mutation, however given her recent back pain, she will have CT of cervical spine as well as chest abdomen and pelvis to exclude other bony metastatic disease or pancreas lesion as source of her persistent back pain given her known mutation. I also will send bone scan to correlate with CT scans. She does not have any evidence of recurrence over the chest wall, however this will be evaluated with her CT scan and bone scan for restaging. She denies any cough or dyspnea and has been appropriately isolating during the COVID-19 pandemic. --At last visit we ordered estradiol with LH/FSH to determine if she is postmenopausal. This returned with low estradiol but LH and FSH are still in the premenopausal range. She had a baseline DEXA scan which is within normal limits. I will defer changing her to aromatase inhibitor therapy pending her CTand bone scans above which will be discussed by phone. If she does have bony progression of disease, she would likely be changed to aromatase inhibitor with Cyclin dependent-kinase 4/6 inhibitor and I would give her GnRH agonist to suppress potential menses. Otherwise if no metastatic disease identified I willcontinue her on current tamoxifen dosing. The patient is in agreement with thisplan. 12/11/2019: Maria M is here for 3 month f/u. No skin changes or masses over bilateral mastectomy sites, but last Monday she noted itching/burning of left posterior chest wall consistent with shingles. Currently taking Valtrex twice daily. 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 Has not had return of menses since end of chemotherapy. She agrees to LH/FSH and estradiol to determine if menopausal and will have baseline DEXA scan. If consistent with menopause, we will change Tamoxifen to Anastrozole 1mg daily. Discussed possible myalgias/arthralgias with AI therapy. --she will be contacted with DEXA and hormone test results. If she changes to anastrozole, we will reassess hot flashes and possibly titrate off gabapentin therapy. Next f/u in 3 months or sooner as needed. 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 No recurrent hydradenitis suppurativa lesions. Still has hot flashes, but improved control on gabapentin 300mg tid and would like to continue current dosing. She does not want to escalate dose due to concerns for sedation. 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 --Her chest wall exam reveals no evidence of recurrence of breast cancer. She has no palpable masses, tenderness, and does not have lymphedema of either upperextremity. She has no bowel or bladder complaints and no recent urinary tract infections. She is tolerating tamoxifen therapy well other than hot flashes. She has not had menstrual period since starting Lupron with chemotherapy. She will return for follow-up exam in 3 months. PREVIOUS HISTORY: This is a 51 year old lady who found a large mass in her right upper outer quadrant breast in March. She was immediately referred for mammogram and ultrasound and subsequent US guided needle biopsy 04/20/2018 of clinical 5 cmmass at 10 o'clock--this revealed an invasive mammary carcinoma, grade 2-3, ER 95%, [place] 0%, Her2 negative. She did not see medical oncology or discuss breast conserving therapy or immediate reconstruction with her surgeon. On 05/07/2018, she underwent right modified radical mastectomy with axillary lymph node dissection (no attempt for sentinel lymph node) and left simple mastectomy with axillary dissection. Pathology showed right breast with 4.2cm mass, 4 lymph nodes negative--ER/[place]/Her2 unchanged. No cancer in left breast or 3 lymph nodes. Bone scan and CT scan of the chest, abdomen/pelvis were performed at baseline due to some persistent chest wall pain after mastectomy but she was not found tohave any evidence of metastatic disease. 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 She previously completed 4 cycles of dose dense AC. Cycle 1, day 1: 07/06/2018. 09/07/2018 was cycle 1 day 1 of weekly paclitaxel 80 mg/m? IV for 12 weeks (last dose 11/30/2018). She stopped Lupron monthly with chemotherapy after completion of Taxol. This was ordered for ovarian suppression, as the patient had her IUD removed. No breakthrough bleeding noted. No fever/chills, chest pain, cough, SOB, abdominal pain, diarrhea/constipation, skin rash or lower extremity edema. She has tolerated all cycles of AC reasonably well with no significant nausea. She noted dysuria during AC cycle 3 and subsequent urinalysis showed 4 + leukocyte esterase and 20-49 Urine WBC's. Subsequent culture was negative, but patient was started on prophylactic antibiotics due to immunosuppression. --Patient has had multiple episodes of urine frequency and dysuria with urinalyses x3 during the course of chemotherapy which all show mixed positive growth. Symptoms did not respond to antibiotics and I recommended Pyridium for symptomatic management 3 times daily and evaluation by gynecology for her dysuria and possible cath urine specimen. Symptoms of dysuria resolved after completion of Taxol chemotherapy. --She has resolution of prior erythema and mild drainage of the bilateral eyes and had been following with ophthalmology. No changes in vision related to this. --She notes intermittent numbness of fingers and toes that does not interfere with function. We reduced Taxol to 60% dose and she feels that her toe and finger numbness is slowly improving since end of chemotherapy, now mainly in toes only. --At follow-up in early July 2018, she noted swelling over the left labia for3-4 days, associated with mild discomfort but no significant pain or fluctuance. There also had mild skin breakdown in the bilateral inguinal creases. This wasconsistent with recurrence of her hidradenitis suppurativa and she completed antibiotics for this and was maintained on topical antifungal medication. No need for drainage of abscess or imaging as this was nontender and no fluctuance was noted. --At follow-up September 2018, she had persistent swelling and drainage with an ulcerated area over her left labia. This was a fungal complication of her hidradenitis suppurativa and ulcerations are improved but not completely resolved. No surrounding erythema or pain. Due to ongoing swelling and ulceration we decided to continue Diflucan for the remainder of her chemotherapy. Since that time she has had significant improvement of swelling and drainage over the labia and groin area with marked improvement of the prior ulcerated area. Breakdown in the bilateral inguinal creases has now resolved. This will also be followed by ICHTHYOLOGIST. --She has persistent mild fatigue and she received an [id number] for further chemotherapy and lab draws. No erythema, tenderness, or symptoms of infection. Prior crusting over infusion port resolved. 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 This has been associated with moderate penetrance for breast cancer and the patient was recommended for familial counseling for other family members that may need to be tested for this. It also is associated with ataxia and telangiectasia but is not associated with herskin variance for recurrent infection (hidradenitis suppurativa). The patient has had bilateral mastectomy and no other surgical therapy is recommended. --I informed her [facility] based on SARABJIT gene mutation. --11/29/2018: We started adjuvant tamoxifen therapy 20 mg daily for 10 years if she remains premenopausal, but may have transition to aromatase inhibitor if menopause is demonstrated. She has not had any bleeding since starting Lupron with her first cycle, but had prior IUD and we will observe for symptoms of menopause and recurrence of menses after chemotherapy. She will not continue LHRH agonist therapy as she does not wish to have further fertility preservation. 12/17/2018: Patient presented for urgent evaluation due to newly discovered 1 cm nodule in the left axilla. She was performing self exam and noted firm nodule without overlying erythema or tenderness. She was concerned this could be a local recurrence. She has not followed up with her prior surgeon Dr. Kenney diagnosis. She agreed to evaluation with ultrasound and potential biopsy within the next week and will be scheduled this evaluation Monday. 12/27/2018: Patient is here for brief follow-up of pathology from left axillary nodule biopsy. This returned with fibroadipose and lymphoid tissue but no evidence of malignancy. She has no tenderness at site and elects to continue observation with ultrasound and clinical exam, consider referral back to generalsurgery for reexcision if clinical growth of lesion. She started tamoxifen 20 mg daily on 12/24/2018 with hot flashes but no other significant symptoms. She will return for survivorship review of symptoms in 3 months and we will order follow-up left axillary ultrasound prior to that visit. She may return sooner as needed. Prior dysuria has completely resolved. She has had some vaginal spotting but no menstrual cycle since end of chemotherapy. She declines furtherLupron therapy as she is not planning further childbearing. 03/27/2019: Maria M is here for routine follow-up. She has had no interval changes in medical history. Prior axillary nodule was biopsied 12/19/2018 and showed no evidence of local recurrence--only fibroadipose tissue and fat necrosis. She has not had any other abnormalities on self-exam. She continues to have hot flashes and is on Paxil 40 mg daily which treats her depression wellbut has not affected her hot flashes. She agrees to a trial of gabapentin with escalating doses starting at 100 mg nightly the first night, then twice daily for 3 days, then 3 times daily for 1 week, 200 mg 3 times daily for 1 week, tagn367 mg 3 times daily for 1 week. We will follow-up with her in 1 month to see if hot flashes are well controlled after gabapentin titration. She may stop dose escalation if she has any side effects or has significant improvement of her hot flashes. She has mild stable dyspnea with exertion from baseline. She notes she is improving her regular activities since completion of prior therapy. No other concerns today. 06/20/2019: Maria M is here for 3-month follow-up. She relates sepsis hospitalization at [facility] and we do not have records for review. Shehad removal of her infusion port and likely had source of infection from recurrent hidradenitis suppurativa of left axilla. This resolved on appropriateantibiotic therapy. Her prior labial wounds have now healed although she has 2 areas in her gluteal cleft which have swollen consistent with her hidradenitis suppurativa. We discussed possible streptococcal and staphylococcal carriage inher nasal membranes due to her recurrent skin infections and are utilizing Bactroban intranasally for 3 days and as needed Bactroban to her new skin lesions. She does not have any fluctuance indicative of active infection, however I encouraged her to use either pHisoHex or Hibiclens at least 2-3 times weekly over her entire skin to prevent recurrent infections. DIAGNOSIS: 1. Right upper outer quadrant [id number] (4.2 cm primary, 4 LN neg), moderately differentiated adenocarcinoma, ER 90%, [place] 0%, Her2 not overexpressed --US guided needle biopsy 04/20/2018 of clinical 5 cm mass at 10 o'clock--this revealed an invasive mammary carcinoma, grade 2-3, ER 95%, [place] 0%, Her2 negative. --Bilateral mastectomy with axillary lymph node dissection 05/07/2018 --Sent Oncotype DX on specimen. Reviewed with patient 06/28/2018. Recurrence score returned high risk 47 (correlating to 10 -year recurrence of 29%). Counseled patient for dense dense AC Taxol chemotherapy. --Notes some shortness of breath, intermittent cough and chest wall pain. Had normal baseline echo but 2 cm cyst seen in the liver. Ordering staging bone scan with CT of chest abdomen pelvis due to symptoms prior to chemotherapy. --Completed adjuvant dose dense AC x4, weekly Taxol x12 chemotherapy. No indication for postmastectomy radiation. Tamoxifen day 1 12/24/2018, tolerating well. 2. 03/2021: She had 2 hospitalizations for sepsis at [facility] in November and March resulting from cellulitis of the left arm. 3. History of multiple skin squamous cell carcinoma excisions, most recently 12/2017 4. History of resection of hydradenitis suppuritiva bilateral axillae --during chemotherapy, she had groin and perineal hidradenitis suppuritiva--improved with antibiotics and antifungal therapy, but maintaining oral Diflucan until the end of chemotherapy 5. HTN 6. Hypothyroidism 7. Chronic sinusitis 8. IBS/diverticulosis 9. Recurrent urinary urgency and dysuria. Has had 3 urinalyses since start ofchemo which show gross pyuria but cultures show mixed positive skin contaminants. She received 1 course of antibiotics, but due to persistent symptoms I sent her to nursing home administrator Dr. Gilbert in [place] for evaluation of her urgency/dysuria. Urgency and dysuria has resolved since chemotherapy ended. 10. Pea sized lump left axilla detected on self exam 12/14/2018--referral for US and biopsy 12/19/2018 consistent with fibroadipose and lymphoid tissue but no evidence of malignancy. We have decided to follow with every 3-month ultrasoundand clinical exam, consider excisional biopsy if further growth of lesion. - Summary of Therapies Summary of Therapies: 1. Bilateral mastectomy with axillary lymph node dissection 05/07/2018 2. Oncotype Dx returned with high risk recurrence score and patient was counseled on 06/28/2018 regarding adjuvant chemotherapy with dose dense AC/paclitaxel. Completing staging with CT chest abdomen pelvis and bone scan for postmastectomy chest wall pain, cough, and liver cyst seen on echocardiogram. Baseline cardiac function is normal. 3. Started chemotherapy: 07/06/2018 Dose-dense AC followed by weekly paclitaxel (Category 1) Day 1: Doxorubicin 60mg/m2 IV Day 1: Cyclophosphamide 600mg/m2 IV. Repeat cycle every 14 days for 4 cycles, followed by: Day 1: Paclitaxel 80mg/m2 via 1-hour IV infusion weekly for 12 weeks. (Reduced to 60% dose due to neuropathy)--last dose 11/30/2018 4. Adjuvant hormonal therapy 2 weeks after completion of chemotherapy: she is premenopausal therefore started tamoxifen 20 mg daily 12/24/2018 for 10 years, ortransition to aromatase inhibitor therapy at the time of menopause. Testing hormonal studies 03/2021--will review results as per HPI (change to anastrazole if menopausal). ROS Details: All systems reviewed & no additional complaints except as documented Subjective/ROS - Narrative: ROS Details: All systems reviewed & no additional complaints except as documented Constitutional: fair state of general health, able to conduct usual activities, improving activity level and exercise tolerance, 25lb intentional weight loss ondiabetic diet, no weight gain Eyes: no double vision, resolution of prior bilateral eye redness/drainage--on eyedrops from [facility] [place]. No vision change. Ears, nose, mouth, throat: no headaches, no vertigo, no lightheadedness, no nasal congestion, no rhinorrhea, no epistaxis, no gingival bleeding, no sore throat Cardiovascular: + chest wall pain (left axillary line, likely musculoskeletal),no palpitations, no syncope, no dyspnea on exertion, no edema, no heart murmur Respiratory: Recent mild increased shortness of breath with exertion, no wheezing, no cough, no sputum production, no respiratory infections, no TB exposure, resolution of prior chest wall pain and subjective fullness over her mastectomy site. Gastrointestinal: no change in appetite, no dysphagia, no indigestion, no abdominal pain, no nausea, no vomiting, no jaundice, no constipation, no diarrhea, no abnormal stools, no change in bowel habits Genitourinary: Resolved urgency, resolved urinary frequency and dysuria, no hematuria, no oliguria, no stones, no urinary retention. No current labial swelling/discomfort--now on suppressive antibiotics prescribed by dermatology. Also has known history of hidradenitis suppurativa. No inguinal adenopathy. Musculoskeletal: About 1 week history of cervical and lumbar pain as per HPI without radiculopathy--worse with walking and prolonged standing, no swelling, no redness Integumentary: other - multiple healed excisions of skin cancers, no rash, no bleeding or bruising, no itching--left labial swelling has recurred but prior ulceration resolved--no longer noting erythema or skin breakdown in the bilateral inguinal creases after oral Diflucan while on chemotherapy. 1 small skin lesion in the gluteal cleft. Integumentary (breast): incision site - well healed bilateral mastectomy, resolved tenderness over bilateral chest wall without palpable masses, no swelling, well-healed right axillary incision. 12/14/2018 noted new left 1cm axillary nodule--evaluation with US and biopsy 12/19/2018 negative for malignancy. Nodule regressed and nontender follow-up 03/27/2019. Wearing left lymphedema sleeve today-improving now trace lymphedema. --left posterior chest vesicular rash consistent with herpes zoster at visit 12/11/2019--now resolved. Neurological: no tremor, no incoordination, mild intermittent paresthesias improved in hands, no memory loss Psychiatric: no anxiety, no depression Endocrine: no hormone therapy, positive heat intolerance and flushing on tamoxifen therapy--trial of gabapentin added 03/27/2019, now hot flashes controlled on 300mg tid. Also using electronic cooling device on wrist. Hematologic/Lymphatic: no anemia, no enlarged lymph nodes Allergic/Immunologic: no reaction to drugs PMFSH - History Attestation statement: The following information was validated with the patient. Source: Old Records Reviewed - Social History Smoking Status: Never smoker Substance Use Type: None Home Medications & Allergies Allergies Sulfa (Sulfonamide Antibiotics) Allergy (Verified 05/12/22 15:04) Hives Home Medications loteprednol etabonate 0.5 % eye gel drops (Lotemax) 1 drp Eye-Both QID 10/05/18 [History Confirmed 05/12/22] citalopram 20 mg tablet (Celexa) 20 mg PO DAILY 09/12/19 [History Confirmed 05/12/22] amlodipine 10 mg tablet 10 mg PO DAILY 12/11/19 [History Confirmed 05/12/22] losartan 100 mg tablet 100 mg PO DAILY 12/11/19 [History Confirmed 05/12/22] triamterene 37.5 mg-hydrochlorothiazide 25 mg capsule 1 cap PO DAILY 12/11/19 [History Confirmed 05/12/22] thyroid (pork) 65 mg tablet (Nature-Throid) 65 mg PO BID 03/11/20 [History Confirmed 05/12/22] dapagliflozin 5 mg tablet (Farxiga) 5 mg PO DAILY 07/08/20 [History Confirmed 05/12/22] glipizide 10 mg tablet 10 mg PO DAILY 04/28/21 [History Confirmed 05/12/22] gabapentin 300 mg capsule 300 mg PO TID 90 days #270 caps 10/08/21 [Rx Confirmed 05/12/22] nabumetone 500 mg tablet 750 mg PO BID 11/10/21 [History Confirmed 05/12/22] tamoxifen 20 mg tablet 20 mg PO DAILY 90 days #90 tabs 05/09/22 [Rx Confirmed 05/12/22] Objective - Height/Weight Height/Weight: Height 5 ft 3 in Weight 86.183 kg BSA for Today's Weight 2.07 - Vital Signs Vital Signs: 05/12/22 15:05 Temperature 97.0 F L Pulse Rate [Left Brachial] 82 Respiratory Rate 16 Blood Pressure [Left Arm] 105/72 02 Sat by Pulse Oximetry 98 Oxygen Delivery Method Room Air - Pain Generalized Pain Intensity: 2 Groin Pain Intensity: 2 Left Flank Pain Intensity: 3 Bilateral Hip Pain Intensity: 2 Bilateral Knee Pain Intensity: 2 Lower Back Pain Intensity: 0 Right Shoulder Pain Intensity: 2 Chest Pain Intensity: 4 Abdomen Pain Intensity: 2 - Distress Screening Distress Screen Results: RN Distress Screening Start: 06/08/18 09:11 Freq: Status: Complete Protocol: Document 06/08/18 09:39 AA (Rec: 06/08/18 09:41 AA [id number]) Distress Screening Distress Score: 6 Physical Concerns Feeling tired or a lack of energy Emotional Concerns Depression,Worry Distress Screening Total 6 RN Distress Screening Start: 07/06/18 11:26 Freq: Q30D Status: Active Protocol: Document 09/07/18 12:21 AE (Rec: 09/07/18 12:23 AE [email or web address]) Distress Screening Distress Score: 5 Day to Day Concerns Work Physical Concerns Feeling tired or a lack of energy,Trouble Sleeping Emotional Concerns Sadness Problems talking or dealing with my: Child/ children Distress Screening Total 5 Physical Exam Narrative: CONSTITUTIONAL: The patient is in no acute distress. HEAD / FACE: Normocephalic. EYES: Pupils are equal and reactive to light. Conjunctivae and lids are benign in appearance. Ocular movement intact. EARS: Hearing grossly intact. NOSE / MOUTH / THROAT: Nose, mouth, tongue and oropharynx are benign in appearance. No signs of inflammation. NECK / THYROID: Neck is supple. Thyroid is symmetrical, without thyromegaly LYMPHATIC: No palpable cervical, supraclavicular, axillary adenopathy. No tenderness or fluctuance in axillae or inguinal areas. RESPIRATORY: Normal to inspection. Lungs clear to auscultation and percussion. No wheezing, rales, rhonchi or rubs. Normal effort. CARDIOVASCULAR: Regular rate and rhythm. No murmurs, gallops, or rubs. BILATERAL CHEST WALL: No chest wall or axillary tenderness. Well-healed bilateral mastectomies. No supraclavicular or infraclavicular adenopathy. No current lesions of left upper extremity or left axilla. VASCULAR: Carotid, radial, femoral and pedal pulses present bilaterally. No bruits. ABDOMEN: Bowel sounds normoactive. Soft, nontender and non-distended. No hepatosplenomegaly. No masses. INTEGUMENTARY: The skin is unremarkable. No active lesions consistent with hidradenitis suppurativa. No other rashes. No suspicious lesions MUSCULOSKELETAL: Normal musculature, no joint deformities or abnormalities, normal range of motion for all four extremities. She is able to ambulate independently. EXTREMITIES: No edema, cyanosis or clubbing. NEUROLOGICAL: Alert and oriented. Cranial nerves intact. No gross motor or sensory deficits. PSYCHIATRIC: No anxiety or evidence of depression. - ECOG Performance Status ECOG Score: 1 Results - Labs Labs: Diagram of Most Recent CBC and CMP 11/21/20 11:26 11/21/20 11:26 Labs - Last 7 Days 05/10/22 16:00: Estradiol (E2) Level 22.4, Luteinizing Hormone 7.4 05/10/22 16:00: FSH 8.3 - Impressions DEXA 01/27/22 reviewed showing mild osteopenia of spine, but normal bilateral hipT-scores. Assessment and Plan - TNM Staging Staging: pT2 (4.2cm) pN0 cM0 invasive ductal carcinoma, estrogen receptor +95%, progesterone receptor negative 0%, HER-2 negative, grade 2 (1) Cancer of right breast, stage 2 This is a 51 yo female who discovered a right upper outer quadrant breast mass and underwent bilateral mastectomy 05/07/2018. Final pathology returned as a pT2(4.2cm) pN0 (only 4 lymph nodes excised--possibly less nodes due to prior hydradenitis suppurativa surgery) M0. The tumor is moderately differentiated estrogen receptor positive (95%), progesterone negative (0%), Her2 negative neoplasm. Menopausal status is somewhat unclear with IUD in place--this was removed since start of chemo. Patient does not have a history of tubal ligation. She remained on Lupron injections only during chemotherapy and we decided against further Lupron as this is not indicated for fertility preservation. Lupron was stopped early November 2018 with last chemotherapy. She has not resumed regular menses since end of Lupron therapy. She receives gabapentinfor hot flashes with improvement of symptoms. Since tumor was < 5cm, negative lymph nodes, and negative margins, she did not require postmastectomy radiation therapy. I sent the tumor specimen for Oncotype Dx which returned with high risk recurrence score of 47 consistent with29% recurrence at 10 years with hormonal therapy alone. Baseline Echo showed normal ejection fraction, however a 2 cm hepatic cyst of unclear etiology was seen on echo. CT of chest abdomen and pelvis + bone scan due to chest wall pain, cough, an indeterminate liver cyst seen on echo were ordered--all were found to be unremarkable. No metastatic disease on bone scan. ----- ----- Completed 4 cycles dose dense AC, then 12 weekly paclitaxel with last treatment 11/29/2018. She tolerated this very well; only complaint is mild intermittent peripheral numbness and much improved labial swelling/perineal ulcerations due to hidradenitis suppurativa which was initially treated with antibiotics/oral Diflucan 100 mg daily during chemotherapy with significant improvement of symptoms. Prior recurrent dysuria with negative urine cultures but mixed positive skin contaminant growth. I recommended reevaluation by ICHTHYOLOGIST for her dysuria and to determine other potential etiologies of dysuria, but symptoms appear improved after a trial of Pyridium 100 mg 3 times daily as needed for remainder of chemotherapy. 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 She has stable mild fatigue. No issues with nausea/vomiting or diarrhea. Laboratories unremarkable. 12/28/2018: She started tamoxifen therapy on 12/24/2018. She is tolerating this well other than daily hot flashes. She had some vaginal spotting but has not had a menstrual period since last visit for Lupron on 12/06/2018. 03/27/2019: Survivorship after follow-up ultrasound for her left axillary nodulenegative for recurrence. Tolerating tamoxifen reasonably well except hot flashes. She is on maximal dose of paclitaxel 40 mg daily which is effective for her depression but not for hot flashes. We titrated dose of gabapentin and reevaluated by phone at 1 month. We deferred follow-up imaging for prior indeterminate hepatic cyst on imaging--no abnormality seen on CT of abdomen pelvis in June 2018. There is no recommendation for routine surveillance forpancreatic cancer given her SARABJIT mutation (discussed with medical genetics--unlikely to benefit from additional cancer screening but may offer a trial at [facility]). 06/20/2019: She noted hospitalization for sepsis at [facility] in early April 2019 and infusion port was removed. Recurrent hidradenitis suppurativa gluteal cleft. We treated her with pHisoHex and nasal Bactroban for staph carriage as well as topical Bactroban to these lesions. 12/11/2019: Treated with Valtrex for zoster. Now that she is 1 year from end ofchemotherapy on Tamoxifen without return of menses, will send LH/FSH and estradiol and baseline DEXA scan and contact with results. If menopausal, I will start Anastrozole 1mg daily and reassess at 3 month followup. If hot flashes are improved on anastrozole, we may titrate off gabapentin. Total duration of therapy will be 10 years due to SARABJIT mutation. 03/11/2020: Patient now reports 1 month of cervical and lumbar pain. Also noted fullness over left chest wall which was concerning to her despite prior bilateral mastectomy. Given her new concerns and known history of increased pancreatic cancer risk with SARABJIT mutation now 2 years from bilateral mastectomy for stage II breast cancer, I am sending for CT of cervical spine as well as CT chest abdomen pelvis to evaluate her areas of pain in addition to bone scan to exclude bony metastatic disease. She will be contacted with these results. At this time since her FSH and LH are still in premenopausal range despite low estradiol I will continue tamoxifen 20 mg daily. If the patient does have bony metastatic disease we will likely change her to aromatase inhibitor with CDK 4/6inhibitor and ovarian suppression therapy. The patient will be contacted with these results and if no evidence of metastatic disease her follow-up will be extended to every 4 months or sooner as needed. 07/08/2020: She had improvement of left chest wall pain after workup in Feb 2020,but recently notes increased left chest wall pain worse with deep inspiration. Will send of CT Chest with contrast and contact with results and earlier followup as necessary. Otherwise continue every 4 month f/u for clinical exam. Continue Tamoxifen as directed--will consider change to AI therapy when postmenopausal. Continue gabapentin 300mg tid for hot flashes. 07/27/2020: Virtual visit follow-up left chest wall pain and CT of chest with contrast which shows persistent left chest wall nodule consistent with prior lymph node on ultrasound. The patient does have a history of hidradenitis suppurativa and this may be a reactive lymph node, however due to pain in the area and fci of her prior surgeon I referring her to Dr. Plunkett of general surgery for further evaluation and excisional biopsy if he feels this isindicated. Otherwise I will continue to follow her every 4 months as previouslydirected. She will continue tamoxifen 20 mg daily and gabapentin 500 mg 3 timesdaily for hot flashes. Prior dyspnea has improved and she does not have any infiltrates on CT of chest. 11/23/2020: No changes on exam and prior evaluation by Dr. Plunkett with no concern for excisional biopsy of prior reactive lymph nodes. She notes her adenopathy has improved since starting Humira for hidradenitis suppurativa. We will arrange for surveillance left axillary ultrasound prior to her next scheduled visit in March 2021 and if no evidence of recurrence at that time,she will be followed on an every 6-month visit. 04/28/2021: No changes on physical exam and recent left axillary ultrasound did not show any significant adenopathy. She did however have 2 hospitalizations inthe last 6 months for sepsis at [facility] resulting from cellulitis of the left upper extremity. She is pending rheumatology evaluation and I am sending laboratories with serum protein electrophoresis with immunofixation and kappa/lambda light chain analysis to evaluate for possible hypogammaglobulinemiaincreasing her risk of systemic infection. We also sending estradiol, LH and FSH to evaluate possible perimenopausal state and will contact her for telephonefollow-up visit in 2 weeks. We will determine frequency of follow-up based on her results. She knows to call us sooner with any questions/concerns. This is a moderate complexity visit over 35 minutes to review exam, recent hospital stay, and follow-up plan. 11/10/2021: No evidence of recurrence on exam. She is now having hot flashes daily. Otherwise no new complaints, but continued recurring cellulitis infections in her left arm. She is following with Dr. Grider. We will plan for her to follow-up in [address] Washington with repeat hormone testing, left axillary US and exam. She is in agreement with this plan and had no further questions. She is due for next DEXA in December and we will call with results. 05/12/2022: No recurrence on exam, tolerating Tamoxifen well. Mild osteopenia lumbar spine only--continue calcium/vit D with Tamoxifen therapy. Still premenopausal by labs. Extend followup to annual, sooner if new issues arise--may return sooner if new or concerning symptoms. Low complexity 25 minute f/u visit. 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 We stopped monthly Lupron therapy at end of chemotherapy as she does not wish to preserve fertility at this point. Since she was free of menses at one year post-chemotherapy, we again sent LH, FSH, and estradiol with baseline DEXA scan in spring 2019. Will potentially change to aromatase inhibitor therapy only if postmenopausal on testing as noted above, otherwise continue tamoxifen due to LH and FSH still in premenopausal ranges on testing March 2021. We will reevaluate hormone studies annually. 11/10/2021: She continues on tamoxifen 20mg daily. She is now starting to experience hot flashes daily and her last menstrual period was July 2020. We will plan to check her LH, FSH and estradiol at follow-up to confirm if she will then be postmenopausal on labs. If so, we will transition her to Arimidex at that time. 05/12/2022: Tamoxifen 20mg daily x 10 years--LH/FSH/Estradiol still premenopausal. Repeat labs with one year followup. (3) History of Gram positive sepsis Because of 2 hospitalizations for gram-positive sepsis resolving cellulitis in the last 6 months, we sent work-up for hypogammaglobulinemia as noted above. These came back negative She now is following with Dr. Grider and considering residential antibiotic therapy. (4) Vasomotor symptoms due to menopause Gabapentin for postmenopausal hot flashes--if she changes to aromatase inhibitor therapy due to menopause, she wishes to titrate off gabapentin if symptoms improving. Now using a wrist device for hot flashes which controls her symptoms. 11/10/2021, 05/12/2022: she continues to use her wrist device for hot flashes with improvement in symptoms. I advised her she may increase her evening gabapentin dose to 2 pills for better control of her symptoms (5) Hidradenitis suppurativa In about July 2018, she noted left groin swelling with normal CBC. Patient has known history of hidradenitis suppurativa and known sulfa allergy. We initially treated her for possible MRSA with doxycycline 100 mg twice daily for 1 week and advised to go to emergency department if worsening of swelling or pain. She followed up with her primary physician who prescribed topical antifungal therapy but she had ongoing swelling and drainage of this area without erythema. She had significant improvement with Diflucan 100 mg daily--we continued this for the remainder of chemotherapy, then titrated off. No change in scarring in bilateral axillae or evidence of recurrence in that region. --As noted above she was hospitalized early April 2019 at [facility] for sepsis and infusion port was removed. She was noted to have strep infection and I discussed use of nasal Bactroban x3 days with use of topical Bactroban to skin lesions overlying her gluteal cleft. She should use antibacterial soap such as pHisoHex to prevent recurrent bacterial infection at least 2 or 3 times per week. --She reported some recurrent fullness in her gluteal cleft and now follows with dermatology. Significant improvement of symptoms from hidradenitis suppurativa since starting Humira therapy with dermatology. Pending rheumatology evaluation. 05/12/2022: she continues to follow with rheumatology and has good symptom control with Humira (6) Monoallelic mutation of SARABJIT gene Patient was found to have SARABJIT mutation on genetic testing and received appropriate genetic counseling. She has already had bilateral mastectomy but will be speaking with family members regarding recommendations for screening for this breast cancer associated gene. There is also an association with pancreatic cancer and I contacted [facility] to see if there is any recommended surveillance imaging or testing recommended for patients with this mutation. Further surveillance for pancreatic cancer is not recommended based on discussion with medical genetics. No concerning findings on CT of chest June 2020 as noted above. (7) Encounter for monitoring tamoxifen therapy Other than hot flashes tolerating well. We discussed risks of thromboembolic disease. We will continue to monitor on therapy for 10-year course--potentially change to aromatase inhibitor if she has menopause documented after 1 year of no menses with suppressed estradiol levels. Her most recent estradiol level 01/18/2020 was suppressed but LH and FSH were still in the premenopausal range. Resending LH, FSH, and estradiol as noted above and will contact with results on phone follow-up in 2 weeks. 05/12/2022: her last labs were still in the premenopausal range in Apr 2022. She is having increased hot flashes and is > 1yr without a menstrual period. We will plan to repeat estradiol, FSH and LH at annual follow-up. - Chemo Plan Chemo Plan (Dose, Rate, Freq): Tamoxifen 20 mg daily, change to Anastrozole when menopausal for total 10-year course due to SARABJIT mutation. Number of Cycles: 12 - weekly paclitaxel Goal of Treatment: Curative - Time with Patient Time Spent with Patient (Follow Up Visit): 25 minutes - Follow-up symptoms, perimenopausal testing, and extend followup to annual now 4 years from diagnosis Coordination of Care & Counseling Time: Greater than 50% of time spent with patient was for coordination of care (as documented) and [id number] counseling of patient and/or family. Dictated By: Tanya Washington MD DD/ 16 Signed By: <Electronically signed by MD Tanya Washington> 05/12/221930 [facility] Work Phone: [phone] 216-380910-13-2022 Evaluation note* Encounter Date Diagnosis Assessment Notes Treatment Notes Treatment Clinical Notes Apr, Dysuria (ICD-10 - R30.0) Apr, Acute cystitis with hematuria (ICD-10 - N30.01) Take medication as directed. Urine analysis shows abnormalities today in office. Urine culture will be sent to lab. Will call with results if warranted. Increase fluid intake. Follow hygiene guidelines such as wiping front to back, avoid using perfumed lotions, bath beads, bubble bath. Recommend follow up with primary care provider after treatment completed to make sure infection has cleared. [facility] Other 08-23-2022 Evaluation note* Encounter Date Diagnosis Assessment Notes Treatment Notes Treatment Clinical Notes Feb, Contact with and (suspected) exposure to other viral communicable diseases (ICD-10 - Z20.828) [facility] Other 06-02-2022 Evaluation note* Encounter Date Diagnosis Assessment Notes Treatment Notes Treatment Clinical Notes Dec, Encounter for immunization (ICD-10 - Z23) Patient presents today for a Shingrix Vaccine Injection, #__ of 2 in series. Patient denies a current acute illness; denies any drug/food allergies; denies a serious reaction after a past vaccination. zoster vaccine (inactivated) material was printed and VIS, dated 09/11/17 information was discussed with patient and provided as a take home handout. [facility] Other 04-13-2022 Progress note Author Sheri Kovacs [facility] November 10, 2021 3:48pm Note Date/Time November 10, 2021 2:[address] [place] [address] [place] [address] Hem/Onc Follow Up Note - OP Signed Patient: Maria M Mckeon MR#: [id number] : 1970 Acct:[id number] Age/Sex: 51 / F Type: REG RCR Copies to: MD Albert Bojorquez MD Philip M Hutchison~ Subjective Date/Time of Service: Date of Service: 11/10/2021 Time of Service: 14:44 Chief Complaint: Patient is here today for a 5 month follow up visit and to go over extremity ultrasound. She has had cellulitis on left arm a couple times that has gone sepsis 2018 and of this past year. HPI: 11/10/2021: Radha is here for 6 month follow-up for her breast cancer on tamoxifen. She denies any changes to her chest wall or axillae on self-exam. Shehas continued flares of cellulitis in her left arm and now follows with Dr. Grider. She recently had another infection and is finishing up her antibiotics this week. She states she likely will go on salvage determiner antibiotics if any additional infections arise after this. She continues with skin breakouts that are controlled with topical clobetasol. She also continues with lymphedema in her left arm that she typically wears her compression sleeve for, but not when she has an active infection. She has been having more frequent hot flashes this month that keep her up at night and has not had a menstrual period since July2020, so > 12 months. We will check LH, FSH and estradiol. She will have repeat DEXA scan in December and will follow-up with Dr. Washington in 6 months with left axillary US. If labs confirm she is now postmenopausal (as she is based on lack of menstrual period > 12 months) we will switch her therapy to Arimidex. She voiced understanding of this and denies any questions. 04/28/2021: Maria M is here for 5-month follow-up. She noted 2 hospitalizations for sepsis. She had a long hospitalization at [facility] in late November 2020 for methicillin sensitive staph bacteremia that arose from cellulitis of her left arm. She completely recovered but then was hospitalized 2 weeks ago with left arm cellulitis again with the last prolonged hospital stay. She has completed her antibiotics. She continues to have skin breakouts over her groin area and still has an area in her gluteal fold that she is treating with topicalclobetasol. She also has required cortisone suppositories for her vaginal/vulvar disease. She continues to use tamoxifen alone for her breast cancer. She reports that her last menstrual period was in July 2020 without other menopausal symptoms. She is no longer on Humira for her skin disorder butwill be referred in the next few weeks to rheumatology here in [place] to evaluate for possible autoimmune etiologies. We have not performed an immune evaluation for her recurrent infections and I recommended sending quantitative immunoglobulins to determine if she has hypogammaglobulinemia. We also agreed to send LH, FSH, and estradiol level to determine if she is now postmenopausal. If so we will transition her to aromatase inhibitor therapy from tamoxifen. Jeni recent DEXA scan was in December 2019 and was normal. She should not require another DEXA scan if she transitions to AI therapy. No new pain, skin changes, or masses of bilateral chest wall. Left axillary fullness was evaluated with ultrasound 04/19/2020 showing no adenopathy. She will have a 2-week phone follow-up for review of results and we will determine whether she changes hormonal therapy at that time. 11/23/2020: Here for 4-month follow-up with no interval complaints. Since she has been on Humira her left axillary swelling is improved as is her left chest wall discomfort. We decided that since her CT in June showed no evidence ofaxillary adenopathy and Dr. Plunkett did not feel anything concerning on exam, we will defer her next left axillary ultrasound to prior to her March 2021 follow-up. She also reports a recent injury to her left leg and had a bone bruise but no other interval changes in her history. 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 We will defer next follow-up to her March 2021 which will be 3 years from original diagnosis and if no evidence of recurrence or follow-up will be every 6 months thereafter until 5 years. She continues tamoxifen 20 mg daily with some intermittent hot flashes but has an electronic cooling device that she wears on her right wrist which is effective. 07/27/2020: Virtual visit followup of CT Chest. Left chest wall discomfort tends to come and go. We reviewed CT of chest showing no evidence of recurrent or metastatic disease, although there was an incompletely imaged nodule that appeared to be consistent with a lymph node. She feels there may be some point tenderness over that area and her surgeon Dr. Mendoza from 2 years ago has now retired. She is agreeable to referral to Dr. Plunkett with general surgery for evaluation of this area and potential biopsy/resection if he feels this is indicated. She does note that her hot flashes have improved and we discussed potentially increasing her gabapentin dose, however we will continue to observe her symptoms. No other interval changes in medical history since her last visit07/08/2020. If assessment by general surgery is unremarkable she will follow-up with me in 4 months or sooner as needed. 07/08/2020: Maria M is here for 4 month followup. She reports increased left greater than right chest wall discomfort recently. No chest wall masses or significant lymphedema. No cough, but mild dyspnea and pain with deep inspiration. She had a fever last week but negative coronavirus testing. No bowel or bladder complaints--seeing dermatology and currently on an antibiotic course for a skin breakout with no recent axillary or groin outbreaks of hidradenitis suppurativa. Hot flashes stable on hormonal therapy. We will orderchest CT for chest wall pain (prior bone scan negative in 02/2020) and contact her by phone with results. If negative, next f/u in 4 months. 03/11/2020: Maria M presents for 3 month followup, now nearly 2 years from diagnosis of [id number] right breast cancer, ER+, [place] neg, Her neg high risk Oncotype 47 s/p upfront bilateral mastectomy, adjuvant dose dense AC Taxol therapy, then tamoxifen. She notes that over the past month she has been having recurrent lumbar pain and cervical pain, worse with prolonged standing and walking. Denies any radiculopathy and has not had saddle paresthesias or changein bowel or bladder function. She has a history of vulvar lesions that were attributed to nabothian cysts in the past, however she feels that these are potentially associated with skin cancer and is planning to resume follow-up withDr. Clark of dermatology. The patient was hospitalized once since her last visit in November due to lactic acidosis that was attributed to her metformin therapy. Her primary physician Dr. Christianson has taken her off metformin and she is managing her diabetes with low carbohydrate diet only --She also discussed that she has known PTEN mutation and ask whether she shouldbe evaluated for pancreatic cancer surveillance. Per NCCN guidelines, there is no recommended pancreatic cancer surveillance for this mutation, however given her recent back pain, she will have CT of cervical spine as well as chest abdomen and pelvis to exclude other bony metastatic disease or pancreas lesion as source of her persistent back pain given her known mutation. I also will send bone scan to correlate with CT scans. She does not have any evidence of recurrence over the chest wall, however this will be evaluated with her CT scan and bone scan for restaging. She denies any cough or dyspnea and has been appropriately isolating during the COVID-19 pandemic. --At last visit we ordered estradiol with LH/FSH to determine if she is postmenopausal. This returned with low estradiol but LH and FSH are still in the premenopausal range. She had a baseline DEXA scan which is within normal limits. I will defer changing her to aromatase inhibitor therapy pending her CTand bone scans above which will be discussed by phone. If she does have bony progression of disease, she would likely be changed to aromatase inhibitor with Cyclin dependent-kinase 4/6 inhibitor and I would give her GnRH agonist to suppress potential menses. Otherwise if no metastatic disease identified I willcontinue her on current tamoxifen dosing. The patient is in agreement with thisplan. 12/11/2019: Maria M is here for 3 month f/u. No skin changes or masses over bilateral mastectomy sites, but last Monday she noted itching/burning of left posterior chest wall consistent with shingles. Currently taking Valtrex twice daily. 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 Has not had return of menses since end of chemotherapy. She agrees to LH/FSH and estradiol to determine if menopausal and will have baseline DEXA scan. If consistent with menopause, we will change Tamoxifen to Anastrozole 1mg daily. Discussed possible myalgias/arthralgias with AI therapy. --she will be contacted with DEXA and hormone test results. If she changes to anastrozole, we will reassess hot flashes and possibly titrate off gabapentin therapy. Next f/u in 3 months or sooner as needed. 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 No recurrent hydradenitis suppurativa lesions. Still has hot flashes, but improved control on gabapentin 300mg tid and would like to continue current dosing. She does not want to escalate dose due to concerns for sedation. 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 --Her chest wall exam reveals no evidence of recurrence of breast cancer. She has no palpable masses, tenderness, and does not have lymphedema of either upperextremity. She has no bowel or bladder complaints and no recent urinary tract infections. She is tolerating tamoxifen therapy well other than hot flashes. She has not had menstrual period since starting Lupron with chemotherapy. She will return for follow-up exam in 3 months. PREVIOUS HISTORY: This is a 50 year old lady who found a large mass in her right upper outer quadrant breast in March. She was immediately referred for mammogram and ultrasound and subsequent US guided needle biopsy 04/20/2018 of clinical 5 cmmass at 10 o'clock--this revealed an invasive mammary carcinoma, grade 2-3, ER 95%, [place] 0%, Her2 negative. She did not see medical oncology or discuss breast conserving therapy or immediate reconstruction with her surgeon. On 05/07/2018, she underwent right modified radical mastectomy with axillary lymph node dissection (no attempt for sentinel lymph node) and left simple mastectomy with axillary dissection. Pathology showed right breast with 4.2cm mass, 4 lymph nodes negative--ER/[place]/Her2 unchanged. No cancer in left breast or 3 lymph nodes. Bone scan and CT scan of the chest, abdomen/pelvis were performed at baseline due to some persistent chest wall pain after mastectomy but she was not found tohave any evidence of metastatic disease. 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 She previously completed 4 cycles of dose dense AC. Cycle 1, day 1: 07/06/2018. 09/07/2018 was cycle 1 day 1 of weekly paclitaxel 80 mg/m? IV for 12 weeks (last dose 11/30/2018). She stopped Lupron monthly with chemotherapy after completion of Taxol. This was ordered for ovarian suppression, as the patient had her IUD removed. No breakthrough bleeding noted. No fever/chills, chest pain, cough, SOB, abdominal pain, diarrhea/constipation, skin rash or lower extremity edema. She has tolerated all cycles of AC reasonably well with no significant nausea. She noted dysuria during AC cycle 3 and subsequent urinalysis showed 4 + leukocyte esterase and 20-49 Urine WBC's. Subsequent culture was negative, but patient was started on prophylactic antibiotics due to immunosuppression. --Patient has had multiple episodes of urine frequency and dysuria with urinalyses x3 during the course of chemotherapy which all show mixed positive growth. Symptoms did not respond to antibiotics and I recommended Pyridium for symptomatic management 3 times daily and evaluation by gynecology for her dysuria and possible cath urine specimen. Symptoms of dysuria resolved after completion of Taxol chemotherapy. --She has resolution of prior erythema and mild drainage of the bilateral eyes and had been following with ophthalmology. No changes in vision related to this. --She notes intermittent numbness of fingers and toes that does not interfere with function. We reduced Taxol to 60% dose and she feels that her toe and finger numbness is slowly improving since end of chemotherapy, now mainly in toes only. --At follow-up in early July 2018, she noted swelling over the left labia for3-4 days, associated with mild discomfort but no significant pain or fluctuance. There also had mild skin breakdown in the bilateral inguinal creases. This wasconsistent with recurrence of her hidradenitis suppurativa and she completed antibiotics for this and was maintained on topical antifungal medication. No need for drainage of abscess or imaging as this was nontender and no fluctuance was noted. --At follow-up September 2018, she had persistent swelling and drainage with an ulcerated area over her left labia. This was a fungal complication of her hidradenitis suppurativa and ulcerations are improved but not completely resolved. No surrounding erythema or pain. Due to ongoing swelling and ulceration we decided to continue Diflucan for the remainder of her chemotherapy. Since that time she has had significant improvement of swelling and drainage over the labia and groin area with marked improvement of the prior ulcerated area. Breakdown in the bilateral inguinal creases has now resolved. This will also be followed by ICHTHYOLOGIST. --She has persistent mild fatigue and she received an [id number] for further chemotherapy and lab draws. No erythema, tenderness, or symptoms of infection. Prior crusting over infusion port resolved. 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 This has been associated with moderate penetrance for breast cancer and the patient was recommended for familial counseling for other family members that may need to be tested for this. It also is associated with ataxia and telangiectasia but is not associated with herskin variance for recurrent infection (hidradenitis suppurativa). The patient has had bilateral mastectomy and no other surgical therapy is recommended. --I informed her [facility] based on SARABJIT gene mutation. --11/29/2018: We started adjuvant tamoxifen therapy 20 mg daily for 10 years if she remains premenopausal, but may have transition to aromatase inhibitor if menopause is demonstrated. She has not had any bleeding since starting Lupron with her first cycle, but had prior IUD and we will observe for symptoms of menopause and recurrence of menses after chemotherapy. She will not continue LHRH agonist therapy as she does not wish to have further fertility preservation. 12/17/2018: Patient presented for urgent evaluation due to newly discovered 1 cm nodule in the left axilla. She was performing self exam and noted firm nodule without overlying erythema or tenderness. She was concerned this could be a local recurrence. She has not followed up with her prior surgeon Dr. Anne Marie rubin. She agreed to evaluation with ultrasound and potential biopsy within the next week and will be scheduled this evaluation Monday. 12/27/2018: Patient is here for brief follow-up of pathology from left axillary nodule biopsy. This returned with fibroadipose and lymphoid tissue but no evidence of malignancy. She has no tenderness at site and elects to continue observation with ultrasound and clinical exam, consider referral back to generalsurgery for reexcision if clinical growth of lesion. She started tamoxifen 20 mg daily on 12/24/2018 with hot flashes but no other significant symptoms. She will return for survivorship review of symptoms in 3 months and we will order follow-up left axillary ultrasound prior to that visit. She may return sooner as needed. Prior dysuria has completely resolved. She has had some vaginal spotting but no menstrual cycle since end of chemotherapy. She declines furtherLupron therapy as she is not planning further childbearing. 03/27/2019: Maria M is here for routine follow-up. She has had no interval changes in medical history. Prior axillary nodule was biopsied 12/19/2018 and showed no evidence of local recurrence--only fibroadipose tissue and fat necrosis. She has not had any other abnormalities on self-exam. She continues to have hot flashes and is on Paxil 40 mg daily which treats her depression wellbut has not affected her hot flashes. She agrees to a trial of gabapentin with escalating doses starting at 100 mg nightly the first night, then twice daily for 3 days, then 3 times daily for 1 week, 200 mg 3 times daily for 1 week, [id number] mg 3 times daily for 1 week. We will follow-up with her in 1 month to see if hot flashes are well controlled after gabapentin titration. She may stop dose escalation if she has any side effects or has significant improvement of her hot flashes. She has mild stable dyspnea with exertion from baseline. She notes she is improving her regular activities since completion of prior therapy. No other concerns today. 06/20/2019: Maria M is here for 3-month follow-up. She relates sepsis hospitalization at [facility] and we do not have records for review. Shehad removal of her infusion port and likely had source of infection from recurrent hidradenitis suppurativa of left axilla. This resolved on appropriate antibiotic therapy. Her prior labial wounds have now healed although she has 2 areas in her gluteal cleft which have swollen consistent with her hidradenitis suppurativa. We discussed possible streptococcal and staphylococcal carriage inher nasal membranes due to her recurrent skin infections and are utilizing Bactroban intranasally for 3 days and as needed Bactroban to her new skin lesions. She does not have any fluctuance indicative of active infection, however I encouraged her to use either pHisoHex or Hibiclens at least 2-3 times weekly over her entire skin to prevent recurrent infections. DIAGNOSIS: 1. Right upper outer quadrant [id number] (4.2 cm primary, 4 LN neg), moderately differentiated adenocarcinoma, ER 90%, [place] 0%, Her2 not overexpressed --US guided needle biopsy 04/20/2018 of clinical 5 cm mass at 10 o'clock--this revealed an invasive mammary carcinoma, grade 2-3, ER 95%, [place] 0%, Her2 negative. --Bilateral mastectomy with axillary lymph node dissection 05/07/2018 --Sent Oncotype DX on specimen. Reviewed with patient 06/28/2018. Recurrence score returned high risk 47 (correlating to 10 -year recurrence of 29%). Counseled patient for dense dense AC Taxol chemotherapy. --Notes some shortness of breath, intermittent cough and chest wall pain. Had normal baseline echo but 2 cm cyst seen in the liver. Ordering staging bone scan with CT of chest abdomen pelvis due to symptoms prior to chemotherapy. --Completed adjuvant dose dense AC x4, weekly Taxol x12 chemotherapy. No indication for postmastectomy radiation. Tamoxifen day 1 12/24/2018, tolerating well. 2. 03/2021: She had 2 hospitalizations for sepsis at [facility] in November and March resulting from cellulitis of the left arm. 3. History of multiple skin squamous cell carcinoma excisions, most recently 12/2017 4. History of resection of hydradenitis suppuritiva bilateral axillae --during chemotherapy, she had groin and perineal hidradenitis suppuritiva--improved with antibiotics and antifungal therapy, but maintaining oral Diflucan until the end of chemotherapy 5. HTN 6. Hypothyroidism 7. Chronic sinusitis 8. IBS/diverticulosis 9. Recurrent urinary urgency and dysuria. Has had 3 urinalyses since start ofchemo which show gross pyuria but cultures show mixed positive skin contaminants. She received 1 course of antibiotics, but due to persistent symptoms I sent her to nursing home administrator Dr. Gilbert in [place] for evaluation of her urgency/dysuria. Urgency and dysuria has resolved since chemotherapy ended. 10. Pea sized lump left axilla detected on self exam 12/14/2018--referral for US and biopsy 12/19/2018 consistent with fibroadipose and lymphoid tissue but no evidence of malignancy. We have decided to follow with every 3-month ultrasoundand clinical exam, consider excisional biopsy if further growth of lesion. - Summary of Therapies Summary of Therapies: 1. Bilateral mastectomy with axillary lymph node dissection 05/07/2018 2. Oncotype Dx returned with high risk recurrence score and patient was counseled on 06/28/2018 regarding adjuvant chemotherapy with dose dense AC/paclitaxel. Completing staging with CT chest abdomen pelvis and bone scan for postmastectomy chest wall pain, cough, and liver cyst seen on echocardiogram. Baseline cardiac function is normal. 3. Started chemotherapy: 07/06/2018 Dose-dense AC followed by weekly paclitaxel (Category 1) Day 1: Doxorubicin 60mg/m2 IV Day 1: Cyclophosphamide 600mg/m2 IV. Repeat cycle every 14 days for 4 cycles, followed by: Day 1: Paclitaxel 80mg/m2 via 1-hour IV infusion weekly for 12 weeks. (Reduced to 60% dose due to neuropathy)--last dose 11/30/2018 4. Adjuvant hormonal therapy 2 weeks after completion of chemotherapy: she is premenopausal therefore started tamoxifen 20 mg daily 12/24/2018 for 10 years, ortransition to aromatase inhibitor therapy at the time of menopause. Testing hormonal studies 03/2021--will review results as per HPI (change to anastrazole if menopausal). ROS Details: All systems reviewed & no additional complaints except as documented PMFSH - Social History Smoking Status: Never smoker Substance Use Type: None Home Medications & Allergies Allergies Sulfa (Sulfonamide Antibiotics) Allergy (Verified 11/10/21 14:41) Hives Home Medications loteprednol etabonate 0.5 % eye gel drops (Lotemax) 1 drp EYE-BOTH QID 10/05/18 [History Confirmed 11/10/21] citalopram 20 mg tablet (Celexa) 20 mg PO DAILY 09/12/19 [History Confirmed 11/10/21] amlodipine 10 mg tablet 10 mg PO DAILY 12/11/19 [History Confirmed 11/10/21] losartan 100 mg tablet 100 mg PO DAILY 12/11/19 [History Confirmed 11/10/21] triamterene 37.5 mg-hydrochlorothiazide 25 mg capsule 1 cap PO DAILY 12/11/19 [History Confirmed 11/10/21] thyroid (pork) 65 mg tablet (Nature-Throid) 65 mg PO BID 03/11/20 [History Confirmed 11/10/21] dapagliflozin 5 mg tablet (Farxiga) 10 mg PO DAILY 07/08/20 [History Confirmed 11/10/21] liothyronine 5 mcg tablet 5 mcg PO DAILY 07/08/20 [History Confirmed 11/10/21] levothyroxine 50 mcg tablet 50 mcg PO DAILY 11/23/20 [History Confirmed 11/10/21] glipizide 10 mg tablet 10 mg PO DAILY 04/28/21 [History Confirmed 11/10/21] tamoxifen 20 mg tablet 20 mg PO DAILY 90 Days #90 tab 05/12/21 [Rx Confirmed 11/10/21] gabapentin 300 mg capsule 300 mg PO TID 90 Days #270 cap 10/08/21 [Rx Confirmed 11/10/21] nabumetone 500 mg tablet 750 mg PO BID 11/10/21 [History Confirmed 11/10/21] Objective - Height/Weight Height/Weight: Height 5 ft 3 in Weight 97.069 kg BSA for Today's Weight 2.07 - Pain Generalized Pain Intensity: 2 Groin Pain Intensity: 2 Left Flank Pain Intensity: 3 Bilateral Hip Pain Intensity: 2 Bilateral Knee Pain Intensity: 2 Lower Back Pain Intensity: 0 Chest Pain Intensity: 4 Abdomen Pain Intensity: 2 - Distress Screening Distress Screen Results: RN Distress Screening Start: 06/08/18 09:11 Freq: Status: Complete Protocol: Document 06/08/18 09:39 AA (Rec: 06/08/18 09:41 AA [id number]) Distress Screening Distress Score: 6 Physical Concerns Feeling tired or a lack of energy Emotional Concerns Depression,Worry Distress Screening Total 6 RN Distress Screening Start: 07/06/18 11:26 Freq: Q30D Status: Active Protocol: Document 09/07/18 12:21 AE (Rec: 09/07/18 12:23 AE [email or web address]) Distress Screening Distress Score: 5 Day to Day Concerns Work Physical Concerns Feeling tired or a lack of energy,Trouble Sleeping Emotional Concerns Sadness Problems talking or dealing with my: Child/ children Distress Screening Total 5 Physical Exam Narrative: CONSTITUTIONAL: The patient is in no acute distress. HEAD / FACE: Normocephalic. EYES: Pupils are equal and reactive to light. Conjunctivae and lids are benign in appearance. Ocular movement intact. EARS: Hearing grossly intact. NOSE / MOUTH / THROAT: Nose, mouth, tongue and oropharynx are benign in appearance. No signs of inflammation. NECK / THYROID: Neck is supple. Thyroid is symmetrical, without thyromegaly LYMPHATIC: No palpable cervical, supraclavicular, axillary adenopathy. RESPIRATORY: Normal to inspection. Lungs clear to auscultation and percussion. No wheezing, rales, rhonchi or rubs. Normal effort. CARDIOVASCULAR: Regular rate and rhythm. No murmurs, gallops, or rubs. BREASTS: No chest wall or axillary tenderness. Well-healed bilateral mastectomies. No supraclavicular or infraclavicular adenopathy. No current lesions of left upper extremity but fullness is again noted in the left axilla with a 6cm patch of erythema noted, without palpable adenopathy. VASCULAR: Carotid, radial, femoral and pedal pulses present bilaterally. No bruits. ABDOMEN: Bowel sounds normoactive. Soft, nontender and non-distended. No hepatosplenomegaly. No masses. INTEGUMENTARY: The skin is unremarkable. No active lesions consistent with hidradenitis suppurativa. No other rashes. No suspicious lesions MUSCULOSKELETAL: Normal musculature, no joint deformities or abnormalities, normal range of motion for all four extremities. She is able to ambulate independently. EXTREMITIES: No edema, cyanosis or clubbing. NEUROLOGICAL: Alert and oriented. Cranial nerves intact. No gross motor or sensory deficits. PSYCHIATRIC: No anxiety or evidence of depression. Results - Labs Labs: Diagram of Most Recent CBC and CMP 11/21/20 11:26 11/21/20 11:26 Assessment and Plan - TNM Staging Staging: pT2 (4.2cm) pN0 cM0 invasive ductal carcinoma, estrogen receptor +95%, progesterone receptor negative 0%, HER-2 negative, grade 2 (1) Cancer of right breast, stage 2 This is a 50 yo female who discovered a right upper outer quadrant breast mass and underwent bilateral mastectomy 05/07/2018. Final pathology returned as a pT2(4.2cm) pN0 (only 4 lymph nodes excised--possibly less nodes due to prior hydradenitis suppurativa surgery) M0. The tumor is moderately differentiated estrogen receptor positive (0%), progesterone negative (0%), Her2 negative neoplasm. Menopausal status is somewhat unclear with IUD in place--this was removed since start of chemo. Patient does not have a history of tubal ligation. She remained on Lupron injections only during chemotherapy and we decided against further Lupron as this is not indicated for fertility preservation. Lupron was stopped early November 2018 with last chemotherapy. She has not resumed regular menses since end of Lupron therapy. She receives gabapentin for hot flashes with improvement of symptoms. Since tumor was < 5cm, negative lymph nodes, and negative margins, she did not require postmastectomy radiation therapy. I sent the tumor specimen for Oncotype Dx which returned with high risk recurrence score of 47 consistent with29% recurrence at 10 years with hormonal therapy alone. Baseline Echo showed normal ejection fraction, however a 2 cm hepatic cyst of unclear etiology was seen on echo. CT of chest abdomen and pelvis + bone scan due to chest wall pain, cough, an indeterminate liver cyst seen on echo were ordered--all were found to be unremarkable. No metastatic disease on bone scan. ----- ----- ----- --- Completed 4 cycles dose dense AC, then 12 weekly paclitaxel with last treatment 11/29/2018. She tolerated this very well; only complaint is mild intermittent peripheral numbness and much improved labial swelling/perineal ulcerations due to hidradenitis suppurativa which was initially treated with antibiotics/oral Diflucan 100 mg daily during chemotherapy with significant improvement of symptoms. Prior recurrent dysuria with negative urine cultures but mixed positive skin contaminant growth. I recommended reevaluation by ICHTHYOLOGIST for her dysuria and to determine other potential etiologies of dysuria, but symptoms appear improved after a trial of Pyridium 100 mg 3 times daily as needed for remainder of chemotherapy. 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 She has stable mild fatigue. No issues with nausea/vomiting or diarrhea. Laboratories unremarkable. 12/28/2018: She started tamoxifen therapy on 12/24/2018. She is tolerating this well other than daily hot flashes. She had some vaginal spotting but has not had a menstrual period since last visit for Lupron on 12/06/2018. 03/27/2019: Survivorship after follow-up ultrasound for her left axillary nodulenegative for recurrence. Tolerating tamoxifen reasonably well except hot flashes. She is on maximal dose of paclitaxel 40 mg daily which is effective for her depression but not for hot flashes. We titrated dose of gabapentin and reevaluated by phone at 1 month. We deferred follow-up imaging for prior indeterminate hepatic cyst on imaging--no abnormality seen on CT of abdomen pelvis in June 2018. There is no recommendation for routine surveillance forpancreatic cancer given her SARABJIT mutation (discussed with medical genetics--unlikely to benefit from additional cancer screening but may offer a trial at [facility]). 06/20/2019: She noted hospitalization for sepsis at [facility] in early April 2019 and infusion port was removed. Recurrent hidradenitis suppurativa gluteal cleft. We treated her with pHisoHex and nasal Bactroban for staph carriage as well as topical Bactroban to these lesions. 12/11/2019: Treated with Valtrex for zoster. Now that she is 1 year from end ofchemotherapy on Tamoxifen without return of menses, will send LH/FSH and estradiol and baseline DEXA scan and contact with results. If menopausal, I will start Anastrozole 1mg daily and reassess at 3 month followup. If hot flashes are improved on anastrozole, we may titrate off gabapentin. Total duration of therapy will be 10 years due to SARABJIT mutation. 03/11/2020: Patient now reports 1 month of cervical and lumbar pain. Also noted fullness over left chest wall which was concerning to her despite prior bilateral mastectomy. Given her new concerns and known history of increased pancreatic cancer risk with SARABJIT mutation now 2 years from bilateral mastectomy for stage II breast cancer, I am sending for CT of cervical spine as well as CT chest abdomen pelvis to evaluate her areas of pain in addition to bone scan to exclude bony metastatic disease. She will be contacted with these results. At this time since her FSH and LH are still in premenopausal range despite low estradiol I will continue tamoxifen 20 mg daily. If the patient does have bony metastatic disease we will likely change her to aromatase inhibitor with CDK 4/6inhibitor and ovarian suppression therapy. The patient will be contacted with these results and if no evidence of metastatic disease her follow-up will be extended to every 4 months or sooner as needed. 07/08/2020: She had improvement of left chest wall pain after workup in Feb 2020,but recently notes increased left chest wall pain worse with deep inspiration. Will send of CT Chest with contrast and contact with results and earlier followup as necessary. Otherwise continue every 4 month f/u for clinical exam. Continue Tamoxifen as directed--will consider change to AI therapy when postmenopausal. Continue gabapentin 300mg tid for hot flashes. 07/27/2020: Virtual visit follow-up left chest wall pain and CT of chest with contrast which shows persistent left chest wall nodule consistent with prior lymph node on ultrasound. The patient does have a history of hidradenitis suppurativa and this may be a reactive lymph node, however due to pain in the area and fci of her prior surgeon I referring her to Dr. Plunkett of general surgery for further evaluation and excisional biopsy if he feels this isindicated. Otherwise I will continue to follow her every 4 months as previouslydirected. She will continue tamoxifen 20 mg daily and gabapentin 500 mg 3 timesdaily for hot flashes. Prior dyspnea has improved and she does not have any infiltrates on CT of chest. 11/23/2020: No changes on exam and prior evaluation by Dr. Plunkett with no concern for excisional biopsy of prior reactive lymph nodes. She notes her adenopathy has improved since starting Humira for hidradenitis suppurativa. We will arrange for surveillance left axillary ultrasound prior to her next scheduled visit in March 2021 and if no evidence of recurrence at that time,she will be followed on an every 6-month visit. 04/28/2021: No changes on physical exam and recent left axillary ultrasound did not show any significant adenopathy. She did however have 2 hospitalizations inthe last 6 months for sepsis at [facility] resulting from cellulitis of the left upper extremity. She is pending rheumatology evaluation and I am sending laboratories with serum protein electrophoresis with immunofixation and kappa/lambda light chain analysis to evaluate for possible hypogammaglobulinemiaincreasing her risk of systemic infection. We also sending estradiol, LH and FSH to evaluate possible perimenopausal state and will contact her for telephonefollow-up visit in 2 weeks. We will determine frequency of follow-up based on her results. She knows to call us sooner with any questions/concerns. This is a moderate complexity visit over 35 minutes to review exam, recent hospital stay, and follow-up plan. 11/10/2021: No evidence of recurrence on exam. She is now having hot flashes daily. Otherwise no new complaints, but continued recurring cellulitis infections in her left arm. She is following with Dr. Grider. We will plan for her to follow-up in [address] Washington with repeat hormone testing, left axillary US and exam. She is in agreement with this plan and had no further questions. She is due for next DEXA in December and we will call with results. 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 We stopped monthly Lupron therapy at end of chemotherapy as she does not wish to preserve fertility at this point. Since she was free of menses at one year post-chemotherapy, we again sent LH, FSH, and estradiol with baseline DEXA scan in spring 2019. Will potentially change to aromatase inhibitor therapy only if postmenopausal on testing as noted above, otherwise continue tamoxifen due to LH and FSH still in premenopausal ranges on testing March 2021. We will reevaluate hormone studies annually. 11/10/2021: She continues on tamoxifen 20mg daily. She is now starting to experience hot flashes daily and her last menstrual period was July 2020. We will plan to check her LH, FSH and estradiol at follow-up to confirm if she will then be postmenopausal on labs. If so, we will transition her to Arimidex at that time. (3) History of Gram positive sepsis Because of 2 hospitalizations for gram-positive sepsis resolving cellulitis in the last 6 months, we sent work-up for hypogammaglobulinemia as noted above. These came back negative She now is following with Dr. Grider and considering salvage determiner antibiotic therapy. (4) Left-sided chest wall pain Maria M reports increased chest wall pain without radiculopathy over the past month. She is concerned that this could be related to recurrence and concern for pancreatic neoplasm given her PTEN mutation which places her at potential increased risk. Due to concerning symptoms and higher risk Oncotype score (47) for recurrence, I sent her for CT of the chest which excluded metastatic disease. General surgery referral for possible excision as noted above. 11/10/2021: she states this chest wall pain has nearly resolved (5) Vasomotor symptoms due to menopause Gabapentin for postmenopausal hot flashes--if she changes to aromatase inhibitor therapy due to menopause, she wishes to titrate off gabapentin if symptoms improving. Now using a wrist device for hot flashes which controls her symptoms. 11/10/2021: she continues to use her wrist device for hot flashes with improvement in symptoms. I advised her she may increase her evening gabapentin dose to 2 pills for better control of her symptoms (6) Hidradenitis suppurativa In about July 2018, she noted left groin swelling with normal CBC. Patient has known history of hidradenitis suppurativa and known sulfa allergy. We initially treated her for possible MRSA with doxycycline 100 mg twice daily for 1 week and advised to go to emergency department if worsening of swelling or pain. She followed up with her primary physician who prescribed topical antifungal therapy but she had ongoing swelling and drainage of this area without erythema. She had significant improvement with Diflucan 100 mg daily--we continued this for the remainder of chemotherapy, then titrated off. No change in scarring in bilateral axillae or evidence of recurrence in that region. --As noted above she was hospitalized early April 2019 at [facility] for sepsis and infusion port was removed. She was noted to have strep infection and I discussed use of nasal Bactroban x3 days with use of topical Bactroban to skin lesions overlying her gluteal cleft. She should use antibacterial soap such as pHisoHex to prevent recurrent bacterial infection at least 2 or 3 times per week. --She reported some recurrent fullness in her gluteal cleft and now follows with dermatology. Significant improvement of symptoms from hidradenitis suppurativa since starting Humira therapy with dermatology. Pending rheumatology evaluation. 11/10/2021: she continues to follow with rheumatology and has good symptom control with Humira (7) Monoallelic mutation of SARABJIT gene Patient was found to have SARABJIT mutation on genetic testing and received appropriate genetic counseling. She has already had bilateral mastectomy but will be speaking with family members regarding recommendations for screening for this breast cancer associated gene. There is also an association with pancreatic cancer and I contacted [facility] to see if there is any recommended surveillance imaging or testing recommended for patients with this mutation. Further surveillance for pancreatic cancer is not recommended based on discussion with medical genetics. No concerning findings on CT of chest June 2020 as noted above. (8) Encounter for monitoring tamoxifen therapy Other than hot flashes tolerating well. We discussed risks of thromboembolic disease. We will continue to monitor on therapy for 10-year course--potentially change to aromatase inhibitor if she has menopause documented after 1 year of no menses with suppressed estradiol levels. Her most recent estradiol level 01/18/2020 was suppressed but LH and FSH were still in the premenopausal range. Resending LH, FSH, and estradiol as noted above and will contact with results on phone follow-up in 2 weeks. 11/10/2021: her last labs were still in the premenopausal range in Mar/Apr 2021. She is having increased hot flashes and is > 1yr without a menstrual period. We will plan to repeat estradiol, FSH and LH at follow-up. - Chemo Plan Chemo Plan (Dose, Rate, Freq): Tamoxifen 20 mg daily, change to Anastrozole when menopausal for total 10-year course due to SARABJIT mutation. Number of Cycles: 12 - weekly paclitaxel Goal of Treatment: Curative - Time with Patient Time Spent with Patient (Follow Up Visit): 35 minutes - Follow-up symptoms, perimenopausal testing, and recent hospitalization for sepsis Coordination of Care & Counseling Time: Greater than 50% of time spent with patient was for coordination of care (as documented) and [id number] counseling of patient and/or family. Dictated By: Sheri Kovacs APRN DD/ [id number] Signed By: <Electronically signed by CHUY Kovacs> 11/10/21 1548 [facility] Work Phone: [phone] Evaluation note* Encounter Date Diagnosis Assessment Notes Treatment Notes Treatment Clinical Notes Oct, Recurrent cellulitis (ICD-10 - L03.90) [facility] Other 03-31-2022 Evaluation note* Encounter Date Diagnosis Assessment Notes Treatment Notes Treatment Clinical Notes Sep, Recurrent cellulitis (ICD-10 - L03.90) In discussing with the patient potential options we talked about the frequency of exacerbations as well as trying to prevent antimicrobial resistance. I am concerned that she has breaks in her skin where the scarring from the hidradenitis exists as well as this Etta plantar skin condition that occurs regularly. 2 potential options were discussed with the first one being chronic suppression antibiotics. The second option we discussed for which she decided to go with was topical application of antiseptic/antibact erial solution to the most at risk areas and then keeping and on the hand a prescription for antibiotics at home in the event active cellulitis occurs. Washing with Hibiclens of the skin in the concerning areas also was discussed. She is to let me know in the event another flareup occurs and she starts to take the newly prescribed Keflex. She is to finish out her current Keflex and then remain off antibiotics and less flareup occurs. Prescription for clindamycin lotion to be applied to the hands and clindamycin gel to be applied to the axillary areas will be sent to her pharmacy to be used preventatively. Sep, Lymphedema (ICD-10 - I89.0) Sep, Hidradenitis suppurativa (ICD-10 - L73.2) [facility] Other 12-14-2021 Evaluation note* Encounter Date Diagnosis Assessment Notes Treatment Notes Treatment Clinical Notes Jun, Contact with and (suspected) exposure to other viral communicable diseases (ICD-10 - Z20.828) covid test neg, see above tx plan. Jun, Bronchitis (ICD-10 - J40) Abx and steroid as directed with food. Pt is to use inhaler as prescribed prn for cough and wheeze. Supportive care as directed. Push fluids and rest. Pt received work note today. Pt is to take otc antipyretic prn for fever and aches. Pt is to take rx cough suppressant prn for cough. Pt is to be re-evaluated after tx if sx worsen or don't improve by pcp or UC. Pt is to call the office with any questions or concerns regarding dx and tx. Pt understood and agreed to tx plan. Jun, Other Additional time spent conducting pre-visit phone call, screening for symptoms, instructions on social distancing, application and removal of PPE, and cleaning of examination room, equipment and supplies was preformed. Patient education given for testing methodology and results. Patient care instructions given in writting by [facility] document. [facility] Other 09-29-2021 Progress note Author Tanya Washington [facility] April 28, 2021 1:55pm Note Date/Time April 28, 2021 9:49am [facility] at [address] [address] Hem/Onc Follow Up Note - OP Signed Patient: Maria M Mckeon MR#: [id number] : 1970 Acct:[id number] Age/Sex: 50 / F Type: REG RCR Copies to: DO Albert Johns MD Matthew E Morrow, MD Philip M Hutchison~ Subjective Date/Time of Service: Date of Service: 04/28/2021 Time of Service: 09:49 Chief Complaint: Patient is here today for a 5 month follow up visit and to go over extremity ultrasound. She has had cellulitis on left arm and has gone spest2018 and December 28 of this year HPI: 04/28/2021: Maria M is here for 5-month follow-up. She noted 2 hospitalizations for sepsis. She had a long hospitalization at [facility] in late November 2020 for methicillin sensitive staph bacteremia that arose from cellulitis of her left arm. She completely recovered but then was hospitalized 2 weeks ago with left arm cellulitis again with the last prolonged hospital stay. She has completed her antibiotics. She continues to have skin breakouts over her groin area and still has an area in her gluteal fold that she is treating with topicalclobetasol. She also has required cortisone suppositories for her vaginal/vulvar disease. She continues to use tamoxifen alone for her breast cancer. She reports that her last menstrual period was in July 2020 without other menopausal symptoms. She is no longer on Humira for her skin disorder butwill be referred in the next few weeks to rheumatology here in [place] to evaluate for possible autoimmune etiologies. We have not performed an immune evaluation for her recurrent infections and I recommended sending quantitative immunoglobulins to determine if she has hypogammaglobulinemia. We also agreed to send LH, FSH, and estradiol level to determine if she is now postmenopausal. If so we will transition her to aromatase inhibitor therapy from tamoxifen. Jeni recent DEXA scan was in December 2019 and was normal. She should not require another DEXA scan if she transitions to AI therapy. No new pain, skin changes, or masses of bilateral chest wall. Left axillary fullness was evaluated with ultrasound 04/19/2020 showing no adenopathy. She will have a 2-week phone follow-up for review of results and we will determine whether she changes hormonal therapy at that time. 11/23/2020: Here for 4-month follow-up with no interval complaints. Since she has been on Humira her left axillary swelling is improved as is her left chest wall discomfort. We decided that since her CT in June showed no evidence ofaxillary adenopathy and Dr. Plunkett did not feel anything concerning on exam, we will defer her next left axillary ultrasound to prior to her March 2021 follow-up. She also reports a recent injury to her left leg and had a bone bruise but no other interval changes in her history. 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 We will defer next follow-up to her March 2021 which will be 3 years from original diagnosis and if no evidence of recurrence or follow-up will be every 6 months thereafter until 5 years. She continues [id number] mg daily with some intermittent hot flashes but has an electronic cooling device that she wears on her right wrist which is effective. 07/27/2020: Virtual visit followup of CT Chest. Left chest wall discomfort tends to come and go. We reviewed CT of chest showing no evidence of recurrent or metastatic disease, although there was an incompletely imaged nodule that appeared to be consistent with a lymph node. She feels there may be some point tenderness over that area and her surgeon Dr. Mendoza from 2 years ago has now retired. She is agreeable to referral to Dr. Plunkett with general surgeryfor evaluation of this area and potential biopsy/resection if he feels this is indicated. She does note that her hot flashes have improved and we discussed potentially increasing her gabapentin dose, however we will continue to observe her symptoms. No other interval changes in medical history since her last visit07/08/2020. If assessment by general surgery is unremarkable she will follow-up with me in 4 months or sooner as needed. 07/08/2020: Maria M is here for 4 month followup. She reports increased left greater than right chest wall discomfort recently. No chest wall masses or significant lymphedema. No cough, but mild dyspnea and pain with deep inspiration. She had a fever last week but negative coronavirus testing. No bowel or bladder complaints--seeing dermatology and currently on an antibiotic course for a skin breakout with no recent axillary or groin outbreaks of hidradenitis suppurativa. Hot flashes stable on hormonal therapy. We will order chest CT for chest wall pain (prior bone scan negative in 02/2020) and contact her by phone with results. If negative, next f/u in 4 months. 03/11/2020: Maria M presents for 3 month followup, now nearly 2 years from diagnosis of [id number] right breast cancer, ER+, [place] neg, Her neg high risk Oncotype 47 s/p upfront bilateral mastectomy, adjuvant dose dense AC Taxol therapy, then tamoxifen. She notes that over the past month she has been havingrecurrent lumbar pain and cervical pain, worse with prolonged standing and walking. Denies any radiculopathy and has not had saddle paresthesias or changein bowel or bladder function. She has a history of vulvar lesions that were attributed to nabothian cysts in the past, however she feels that these are potentially associated with skin cancer and is planning to resume follow-up with Dr. Clark of dermatology. The patient was hospitalized once since her last visit in November due to lactic acidosis that was attributed to her metformin therapy. Her primary physician Dr. Christianson has taken her off metformin and she is managing her diabetes with low carbohydrate diet only --She also discussed that she has known PTEN mutation and ask whether she shouldbe evaluated for pancreatic cancer surveillance. Per NCCN guidelines, there is no recommended pancreatic cancer surveillance for this mutation, however given her recent back pain, she will have CT of cervical spine as well as chest abdomen and pelvis to exclude other bony metastatic disease or pancreas lesion as source of her persistent back pain given her known mutation. I also will send bone scan to correlate with CT scans. She does not have any evidence of recurrence over the chest wall, however this will be evaluated with her CT scan and bone scan for restaging. She denies any cough or dyspnea and has been appropriately isolating during the COVID-19 pandemic. --At last visit we ordered estradiol with LH/FSH to determine if she is postmenopausal. This returned with low estradiol but LH and FSH are still in the premenopausal range. She had a baseline DEXA scan which is within normal limits. I will defer changing her to aromatase inhibitor therapy pending her CTand bone scans above which will be discussed by phone. If she does have bony progression of disease, she would likely be changed to aromatase inhibitor with Cyclin dependent-kinase 4/6 inhibitor and I would give her GnRH agonist to suppress potential menses. Otherwise if no metastatic disease identified I willcontinue her on current tamoxifen dosing. The patient is in agreement with thisplan. 12/11/2019: Maria M is here for 3 month f/u. No skin changes or masses over bilateral mastectomy sites, but last Monday she noted itching/burning of left posterior chest wall consistent with shingles. Currently taking Valtrex twice daily. 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 Has not had return of menses since end of chemotherapy. She agrees to LH/FSH and estradiol to determine if menopausal and will have baseline DEXA scan. If consistent with menopause, we will change Tamoxifen to Anastrozole 1mg daily. Discussed possible myalgias/arthralgias with AI therapy. --she will be contacted with DEXA and hormone test results. If she changes to anastrozole, we will reassess hot flashes and possibly titrate off gabapentin therapy. Next f/u in 3 months or sooner as needed. 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 No recurrent hydradenitis suppurativa lesions. Still has hot flashes, but improved control on gabapentin 300mg tid and would like to continue current dosing. She does not want to escalate dose due to concerns for sedation. 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 --Her chest wall exam reveals no evidence of recurrence of breast cancer. She has no palpable masses, tenderness, and does not have lymphedema of either upperextremity. She has no bowel or bladder complaints and no recent urinary tract infections. She is tolerating tamoxifen therapy well other than hot flashes. She has not had menstrual period since starting Lupron with chemotherapy. She will return for follow-up exam in 3 months. PREVIOUS HISTORY: This is a 50 year old lady who found a large mass in her right upper outer quadrant breast in March. She was immediately referred for mammogram and ultrasound and subsequent US guided needle biopsy 04/20/2018 of clinical 5 cmmass at 10 o'clock--this revealed an invasive mammary carcinoma, grade 2-3, ER 95%, [place] 0%, Her2 negative. She did not see medical oncology or discuss breast conserving therapy or immediate reconstruction with her surgeon. On 05/07/2018, she underwent right modified radical mastectomy with axillary lymph node dissection (no attempt for sentinel lymph node) and left simple mastectomy with axillary dissection. Pathology showed right breast with 4.2cm mass, 4 lymph nodes negative--ER/[place]/Her2 unchanged. No cancer in left breast or 3 lymph nodes. Bone scan and CT scan of the chest, abdomen/pelvis were performed at baseline due to some persistent chest wall pain after mastectomy but she was not found tohave any evidence of metastatic disease. 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 She previously completed 4 cycles of dose dense AC. Cycle 1, day 1: 07/06/2018. 09/07/2018 was cycle 1 day 1 of weekly paclitaxel 80 mg/m? IV for 12 weeks (last dose 11/30/2018). She stopped Lupron monthly with chemotherapy after completion of Taxol. This was ordered for ovarian suppression, as the patient had her IUD removed. No breakthrough bleeding noted. No fever/chills, chest pain, cough, SOB, abdominal pain, diarrhea/constipation, skin rash or lower extremity edema. She has tolerated all cycles of AC reasonably well with no significant nausea. She noted dysuria during AC cycle 3 and subsequent urinalysis showed 4 + leukocyte esterase and 20-49 Urine WBC's. Subsequent culture was negative, but patient was started on prophylactic antibiotics due to immunosuppression. --Patient has had multiple episodes of urine frequency and dysuria with urinalyses x3 during the course of chemotherapy which all show mixed positive growth. Symptoms did not respond to antibiotics and I recommended Pyridium for symptomatic management 3 times daily and evaluation by gynecology for her dysuria and possible cath urine specimen. Symptoms of dysuria resolved after completion of Taxol chemotherapy. --She has resolution of prior erythema and mild drainage of the bilateral eyes and had been following with ophthalmology. No changes in vision related to this. --She notes intermittent numbness of fingers and toes that does not interfere with function. We reduced Taxol to 60% dose and she feels that her toe and finger numbness is slowly improving since end of chemotherapy, now mainly in toes only. --At follow-up in early July 2018, she noted swelling over the left labia for3-4 days, associated with mild discomfort but no significant pain or fluctuance. There also had mild skin breakdown in the bilateral inguinal creases. This wasconsistent with recurrence of her hidradenitis suppurativa and she completed antibiotics for this and was maintained on topical antifungal medication. No need for drainage of abscess or imaging as this was nontender and no fluctuance was noted. --At follow-up September 2018, she had persistent swelling and drainage with an ulcerated area over her left labia. This was a fungal complication of her hidradenitis suppurativa and ulcerations are improved but not completely resolved. No surrounding erythema or pain. Due to ongoing swelling and ulceration we decided to continue Diflucan for the remainder of her chemotherapy. Since that time she has had significant improvement of swelling and drainageover the labia and groin area with marked improvement of the prior ulcerated area. Breakdown in the bilateral inguinal creases has now resolved. This will also be followed by ICHTHYOLOGIST. --She has persistent mild fatigue and she received an [id number] for further chemotherapy and lab draws. No erythema, tenderness, or symptoms of infection. Prior crusting over infusion port resolved. 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 This has been associated with moderate penetrance for breast cancer and the patient was recommended for familial counseling for other family members that may need to be tested for this. It also is associated with ataxia and telangiectasia but is not associated with her skin variance for recurrent infection (hidradenitis suppurativa). The patient has had bilateral mastectomy and no other surgical therapy is recommended. --I informed her [facility] based on SARABJIT gene mutation. --11/29/2018: We started adjuvant tamoxifen therapy 20 mg daily for 10 years if she remains premenopausal, but may have transition to aromatase inhibitor if menopause is demonstrated. She has not had any bleeding since starting Lupron with her first cycle, but had prior IUD and we will observe for symptoms of menopause and recurrence of menses after chemotherapy. She will not continue LHRH agonist therapy as she does not wish to have further fertility preservation. 12/17/2018: Patient presented for urgent evaluation due to newly discovered 1 cm nodule in the left axilla. She was performing self exam and noted firm nodule without overlying erythema or tenderness. She was concerned this could be a local recurrence. She has not followed up with her prior surgeon Dr. Mendoza since diagnosis. She agreed to evaluation with ultrasound and potential biopsy within the next week and will be scheduled this evaluation Monday. 12/27/2018: Patient is here for brief follow-up of pathology from left axillary nodule biopsy. This returned with fibroadipose and lymphoid tissue but no evidence of malignancy. She has no tenderness at site and elects to continue observation with ultrasound and clinical exam, consider referral back to generalsurgery for reexcision if clinical growth of lesion. She started tamoxifen 20 mg daily on 12/24/2018 with hot flashes but no other significant symptoms. She will return for survivorship review of symptoms in 3 months and we will order follow-up left axillary ultrasound prior to that visit. She may return sooner as needed. Prior dysuria has completely resolved. She has had some vaginal spotting but no menstrual cycle since end of chemotherapy. She declines furtherLupron therapy as she is not planning further childbearing. 03/27/2019: Maria M is here for routine follow-up. She has had no interval changes in medical history. Prior axillary nodule was biopsied 12/19/2018 and showed no evidence of local recurrence--only fibroadipose tissue and fat necrosis. She has not had any other abnormalities on self-exam. She continues to have hot flashes and is on Paxil 40 mg daily which treats her depression wellbut has not affected her hot flashes. She agrees to a trial of gabapentin with escalating doses starting at 100 mg nightly the first night, then twice daily for 3 days, then 3 times daily for 1 week, 200 mg 3 times daily for 1 week, [id number] mg 3 times daily for 1 week. We will follow-up with her in 1 month to see if hot flashes are well controlled after gabapentin titration. She may stop dose escalation if she has any side effects or has significant improvement of her hot flashes. She has mild stable dyspnea with exertion from baseline. She notes she is improving her regular activities since completion of prior therapy. No other concerns today. 06/20/2019: Maria M is here for 3-month follow-up. She relates sepsis hospitalization at [facility] and we do not have records for review. Shehad removal of her infusion port and likely had source of infection from recurrent hidradenitis suppurativa of left axilla. This resolved on appropriateantibiotic therapy. Her prior labial wounds have now healed although she has 2 areas in her gluteal cleft which have swollen consistent with her hidradenitis suppurativa. We discussed possible streptococcal and staphylococcal carriage inher nasal membranes due to her recurrent skin infections and are utilizing Bactroban intranasally for 3 days and as needed Bactroban to her new skin lesions. She does not have any fluctuance indicative of active infection, however I encouraged her to use either pHisoHex or Hibiclens at least 2-3 times weekly over her entire skin to prevent recurrent infections. DIAGNOSIS: 1. Right upper outer quadrant [id number] (4.2 cm primary, 4 LN neg), moderately differentiated adenocarcinoma, ER 90%, [place] 0%, Her2 not overexpressed --US guided needle biopsy 04/20/2018 of clinical 5 cm mass at 10 o'clock--this revealed an invasive mammary carcinoma, grade 2-3, ER 95%, [place] 0%, Her2 negative. --Bilateral mastectomy with axillary lymph node dissection 05/07/2018 --Sent Oncotype DX on specimen. Reviewed with patient 06/28/2018. Recurrence score returned high risk 47 (correlating to 10 -year recurrence of 29%). Counseled patient for dense dense AC Taxol chemotherapy. --Notes some shortness of breath, intermittent cough and chest wall pain. Had normal baseline echo but 2 cm cyst seen in the liver. Ordering staging bone scan with CT of chest abdomen pelvis due to symptoms prior to chemotherapy. --Completed adjuvant dose dense AC x4, weekly Taxol x12 chemotherapy. No indication for postmastectomy radiation. Tamoxifen day 1 12/24/2018, tolerating well. 2. 03/2021: She had 2 hospitalizations for sepsis at [facility] in November and March resulting from cellulitis of the left arm. 3. History of multiple skin squamous cell carcinoma excisions, most recently 12/2017 4. History of resection of hydradenitis suppuritiva bilateral axillae --during chemotherapy, she had groin and perineal hidradenitis suppuritiva--improved with antibiotics and antifungal therapy, but maintaining oral Diflucan until the end of chemotherapy 5. HTN 6. Hypothyroidism 7. Chronic sinusitis 8. IBS/diverticulosis 9. Recurrent urinary urgency and dysuria. Has had 3 urinalyses since start ofchemo which show gross pyuria but cultures show mixed positive skin contaminants. She received 1 course of antibiotics, but due to persistent symptoms I sent her to nursing home administrator Dr. Gilbert in [place] for evaluation of her urgency/dysuria. Urgency and dysuria has resolved since chemotherapy ended. 10. Pea sized lump left axilla detected on self exam 12/14/2018--referral for US and biopsy 12/19/2018 consistent with fibroadipose and lymphoid tissue but no evidence of malignancy. We have decided to follow with every 3-month ultrasoundand clinical exam, consider excisional biopsy if further growth of lesion. - Summary of Therapies Summary of Therapies: 1. Bilateral mastectomy with axillary lymph node dissection 05/07/2018 2. Oncotype Dx returned with high risk recurrence score and patient was counseled on 06/28/2018 regarding adjuvant chemotherapy with dose dense AC/paclitaxel. Completing staging with CT chest abdomen pelvis and bone scan for postmastectomy chest wall pain, cough, and liver cyst seen on echocardiogram. Baseline cardiac function is normal. 3. Started chemotherapy: 07/06/2018 Dose-dense AC followed by weekly paclitaxel (Category 1) Day 1: Doxorubicin 60mg/m2 IV Day 1: Cyclophosphamide 600mg/m2 IV. Repeat cycle every 14 days for 4 cycles, followed by: Day 1: Paclitaxel 80mg/m2 via 1-hour IV infusion weekly for 12 weeks. (Reduced to 60% dose due to neuropathy)--last dose 11/30/2018 4. Adjuvant hormonal therapy 2 weeks after completion of chemotherapy: she is premenopausal therefore started tamoxifen 20 mg daily 12/24/2018 for 10 years, ortransition to aromatase inhibitor therapy at the time of menopause. Testing hormonal studies 03/2021--will review results as per HPI (change to anastrazole if menopausal). ROS Details: All systems reviewed & no additional complaints except as documented Subjective/ROS - Narrative: ROS Details: All systems reviewed & no additional complaints except as documented Constitutional: fair state of general health, able to conduct usual activities, mild decrease in activity level and exercise tolerance due to recent hospital stay from cellulitis, mild intentional weight loss on diabetic diet, no weight gain Eyes: no double vision, resolution of prior bilateral eye redness/drainage--on eyedrops from [facility] [place]. No vision change. Ears, nose, mouth, throat: no headaches, no vertigo, no lightheadedness, no nasal congestion, no rhinorrhea, no epistaxis, no gingival bleeding, no sore throat Cardiovascular: + chest wall pain (left axillary line, likely musculoskeletal),no palpitations, no syncope, no dyspnea on exertion, no edema, no heart murmur Respiratory: Recent mild increased shortness of breath with exertion, no wheezing, no cough, no sputum production, no respiratory infections, no TB exposure, resolution of prior chest wall pain and subjective fullness over her mastectomy site. Gastrointestinal: no change in appetite, no dysphagia, no indigestion, no abdominal pain, no nausea, no vomiting, no jaundice, no constipation, no diarrhea, no abnormal stools, no change in bowel habits Genitourinary: Resolved urgency, resolved urinary frequency and dysuria, no hematuria, no oliguria, no stones, no urinary retention. No current labial swelling/discomfort--now on suppressive antibiotics prescribed by dermatology. Also has known history of hidradenitis suppurativa. No inguinal adenopathy. Musculoskeletal: About 1 week history of cervical and lumbar pain as per HPI without radiculopathy--worse with walking and prolonged standing, no swelling, no redness Integumentary: other - multiple healed excisions of skin cancers, no rash, no bleeding or bruising, no itching--left labial swelling has recurred but prior ulceration resolved--no longer noting erythema or skin breakdown in the bilateral inguinal creases after oral Diflucan while on chemotherapy. 1 small skin lesion in the gluteal cleft. Integumentary (breast): incision site - well healed bilateral mastectomy, resolved tenderness over bilateral chest wall without palpable masses, no swelling, well-healed right axillary incision. 12/14/2018 noted new left 1cm axillary nodule--evaluation with US and biopsy 12/19/2018 negative for malignancy. Nodule regressed and nontender follow-up 03/27/2019. Wearing left lymphedema sleeve today-stable 1+ lymphedema. --left posterior chest vesicular rash consistent with herpes zoster at visit 12/11/2019--now resolved. Neurological: no tremor, no incoordination, mild intermittent paresthesias improved in hands, no memory loss Psychiatric: no anxiety, no depression Endocrine: no hormone therapy, positive heat intolerance and flushing on tamoxifen therapy--trial of gabapentin added 03/27/2019, now hot flashes controlled on 300mg tid. Also using electronic cooling device on wrist. Hematologic/Lymphatic: no anemia, no enlarged lymph nodes Allergic/Immunologic: no reaction to drugs [facility] - History Attestation statement: The following information was validated with the patient. Source: Old Records Reviewed - Social History Smoking Status: Never smoker Substance Use Type: None Home Medications & Allergies Allergies Sulfa (Sulfonamide Antibiotics) Allergy (Verified 04/28/21 09:43) Hives Home Medications loteprednol etabonate 0.5 % eye gel drops (Lotemax) 1 drp EYE-BOTH QID 10/05/18 [History Confirmed 04/28/21] citalopram 20 mg tablet (Celexa) 20 mg PO DAILY 09/12/19 [History Confirmed 04/28/21] amlodipine 10 mg tablet 10 mg PO DAILY 12/11/19 [History Confirmed 04/28/21] losartan 100 mg tablet 100 mg PO DAILY 12/11/19 [History Confirmed 04/28/21] triamterene 37.5 mg-hydrochlorothiazide 25 mg capsule 1 cap PO DAILY 12/11/19 [History Confirmed 04/28/21] thyroid (pork) 65 mg tablet (Nature-Throid) 65 mg PO BID 03/11/20 [History Confirmed 04/28/21] dapagliflozin 5 mg tablet (Farxiga) 10 mg PO DAILY 07/08/20 [History Confirmed 04/28/21] liothyronine 5 mcg tablet 5 mcg PO DAILY 07/08/20 [History Confirmed 04/28/21] gabapentin 300 mg capsule 300 mg PO TID 90 Days #270 cap 09/21/20 [Rx Confirmed 04/28/21] levothyroxine 50 mcg tablet 50 mcg PO DAILY 11/23/20 [History Confirmed 04/28/21] tamoxifen 20 mg tablet 20 mg PO DAILY #90 tab 12/29/20 [Rx Confirmed 04/28/21] glipizide 10 mg tablet 10 mg PO DAILY 04/28/21 [History Confirmed 04/28/21] Objective - Height/Weight Height/Weight: Height 5 ft 3 in Weight 97.069 kg BSA for Today's Weight 2.07 - Vital Signs Vital Signs: 04/28/21 09:43 Temperature 98.0 F Pulse Rate [Left Brachial] 84 Respiratory Rate 20 Blood Pressure [Left Arm] 137/82 02 Sat by Pulse Oximetry 99 - Pain Generalized Pain Intensity: 2 Groin Pain Intensity: 2 Left Flank Pain Intensity: 3 Bilateral Hip Pain Intensity: 2 Bilateral Knee Pain Intensity: 2 Lower Back Pain Intensity: 0 Chest Pain Intensity: 4 Abdomen Pain Intensity: 2 - Emotional Needs Assessment Emotional Needs Assessment: Emotional Needs Identified? No Physical Exam Narrative: CONSTITUTIONAL: The patient is in no acute distress. HEAD / FACE: Normocephalic. EYES: Pupils are equal and reactive to light. Conjunctivae and lids are benign in appearance. Ocular movement intact. EARS: Hearing grossly intact. NOSE / MOUTH / THROAT: Nose, mouth, tongue and oropharynx are benign in appearance. No signs of inflammation. NECK / THYROID: Neck is supple. Thyroid is symmetrical, without thyromegaly, masses or palpable nodules. LYMPHATIC: No palpable cervical, supraclavicular, axillary, or inguinal adenopathy. RESPIRATORY: Normal to inspection. Lungs clear to auscultation and percussion. No wheezing, rales, rhonchi or rubs. Normal effort. CARDIOVASCULAR: Regular rate and rhythm. No murmurs, gallops, or rubs. BREASTS: No chest wall or axillary erythema or tenderness. Well-healed bilateral mastectomies. No supraclavicular or infraclavicular adenopathy. No current lesions of left upper extremity but fullness is noted in the left axillawithout palpable adenopathy. VASCULAR: Carotid, radial, femoral and pedal pulses present bilaterally. No bruits. ABDOMEN: Bowel sounds normoactive. Soft, nontender and non-distended. No hepatosplenomegaly. No masses. GENITOURINARY: No CVA tenderness. No suprapubic fullness or tenderness. No groinadenopathy. No evidence of hernias. INTEGUMENTARY: The skin is unremarkable. No active lesions consistent with hidradenitis suppurativa. No other rashes. No suspicious lesions BACK / SPINE: The back is tender over the lumbar vertebrae, but negative straight leg raise. No step-off deformity. MUSCULOSKELETAL: Normal musculature, no joint deformities or abnormalities, normal range of motion for all four extremities. She is able to ambulate independently. EXTREMITIES: No edema, cyanosis or clubbing. No Nidhi sign. NEUROLOGICAL: Alert and oriented. Cranial nerves intact. No gross motor or sensory deficits. PSYCHIATRIC: No anxiety or evidence of depression. - ECOG Performance Status ECOG Score: 1 Results - Labs Labs: Diagram of Most Recent CBC and CMP 11/21/20 11:26 11/21/20 11:26 04/09/2020: White blood cells 6900, hemoglobin 15.7, hematocrit 46.2, platelet count 249,000, absolute neutrophil count 3400 Sodium 137, potassium 4, 22, creatinine 0.7, glucose 94, calcium 9.5, total bilirubin 0.4, AST 20, ALT 16, alkaline phosphatase 53, total protein 6.2, 4.1 TSH 0.12, estradiol level/LH: pending. FSH 10.7 (normal premenopausal range), serum protein electrophoresis with AMBROSIO, and kappa lambda light chain pending to evaluate for possible hypogammaglobulinemia. - Impressions US extremity nonvascular 04/19/2021 9:13 AM SIGNS AND SYMPTOMS: monitor left axillary lymph node PRIOR PROCEDURE: Status post bilateral mastectomies COMPARISON: 03/27/2020 and 03/22/2019 FINDINGS: Prescaling color Doppler sonographic images of the left axilla were obtained. The previous left axillary lymph node is not well visualized on the current study. No lymph nodes are visualized in the left axilla on the current study. There is no evidence of mass, cyst, architectural distortion, or atypical calcification. US/US extremity nonvascular IMPRESSION: The previous left axillary lymph node is not well visualized on the current study. No lymph nodes are visualized in the left axilla on the current study. ASSESSMENT: BIRADS-1 Negative RECOMMENDATION: Close clinical observation is recommended. Impression dictated by: Selvin Devine M.D.04/19/2021 9:36 AM Assessment and Plan - TNM Staging Staging: pT2 (4.2cm) pN0 cM0 invasive ductal carcinoma, estrogen receptor +95%, progesterone receptor negative 0%, HER-2 negative, grade 2 (1) Cancer of right breast, stage 2 This is a 50 yo female who discovered a right upper outer quadrant breast mass and underwent bilateral mastectomy 05/07/2018. Final pathology returned as a pT2(4.2cm) pN0 (only 4 lymph nodes excised--possibly less nodes due to prior hydradenitis suppurativa surgery) M0. The tumor is moderately differentiated estrogen receptor positive (0%), progesterone negative (0%), Her2 negative neoplasm. Menopausal status is somewhat unclear with IUD in place--this was removed since start of chemo. Patient does not have a history of tubal ligation. She remained on Lupron injections only during chemotherapy and we decided against further Lupron as this is not indicated for fertility preservation. Lupron was stopped early November 2018 with last chemotherapy. She has not resumed regular menses since end of Lupron therapy. She receives gabapentin for hot flashes with improvement of symptoms. Since tumor was < 5cm, negative lymph nodes, and negative margins, she did not require postmastectomy radiation therapy. I sent the tumor specimen for Oncotype Dx which returned with high risk recurrence score of 47 consistent with 29% recurrence at 10 years with hormonal therapy alone. Baseline Echo showed normal ejection fraction, however a 2 cm hepatic cyst of unclear etiology was seen on echo. CT of chest abdomen and pelvis + bone scan due to chest wall pain, cough, an indeterminate liver cyst seen on echo were ordered--all were found to be unremarkable. No metastatic disease on bone scan. ----- ----- Completed 4 cycles dose dense AC, then 12 weekly paclitaxel with last treatment 11/29/2018. She tolerated this very well; only complaint is mild intermittent peripheral numbness and much improved labial swelling/perineal ulcerations due to hidradenitis suppurativa which was initially treated with antibiotics/oral Diflucan 100 mg daily during chemotherapy with significant improvement of symptoms. Prior recurrent dysuria with negative urine cultures but mixed positive skin contaminant growth. I recommended reevaluation by ICHTHYOLOGIST for her dysuria and to determine other potential etiologies of dysuria, but symptoms appear improved after a trial of Pyridium 100 mg 3 times daily as needed for remainder of chemotherapy. 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 She has stable mild fatigue. No issues with nausea/vomiting or diarrhea. Laboratories unremarkable. 12/28/2018: She started tamoxifen therapy on 12/24/2018. She is tolerating this well other than daily hot flashes. She had some vaginal spotting but has not had a menstrual period since last visit for Lupron on 12/06/2018. 03/27/2019: Survivorship after follow-up ultrasound for her left axillary nodulenegative for recurrence. Tolerating tamoxifen reasonably well except hot flashes. She is on maximal dose of paclitaxel 40 mg daily which is effective for her depression but not for hot flashes. We titrated dose of gabapentin and reevaluated by phone at 1 month. We deferred follow-up imaging for prior indeterminate hepatic cyst on imaging--no abnormality seen on CT of abdomen pelvis in June 2018. There is no recommendation for routine surveillance forpancreatic cancer given her SARABJIT mutation (discussed with medical genetics--unlikely to benefit from additional cancer screening but may offer a trial at [facility]). 06/20/2019: She noted hospitalization for sepsis at [facility] in early April 2019 and infusion port was removed. Recurrent hidradenitis suppurativa gluteal cleft. We treated her with pHisoHex and nasal Bactroban for staph carriage as well as topical Bactroban to these lesions. 12/11/2019: Treated with Valtrex for zoster. Now that she is 1 year from end ofchemotherapy on Tamoxifen without return of menses, will send LH/FSH and estradiol and baseline DEXA scan and contact with results. If menopausal, I will start Anastrozole 1mg daily and reassess at 3 month followup. If hot flashes are improved on anastrozole, we may titrate off gabapentin. Total duration of therapy will be 10 years due to SARABJIT mutation. 03/11/2020: Patient now reports 1 month of cervical and lumbar pain. Also noted fullness over left chest wall which was concerning to her despite prior bilateral mastectomy. Given her new concerns and known history of increased pancreatic cancer risk with SARABJIT mutation now 2 years from bilateral mastectomy for stage II breast cancer, I am sending for CT of cervical spine as well as CT chest abdomen pelvis to evaluate her areas of pain in addition to bone scan to exclude bony metastatic disease. She will be contacted with these results. At this time since her FSH and LH are still in premenopausal range despite low estradiol I will continue tamoxifen 20 mg daily. If the patient does have bony metastatic disease we will likely change her to aromatase inhibitor with CDK 4/6inhibitor and ovarian suppression therapy. The patient will be contacted with these results and if no evidence of metastatic disease her follow-up will be extended to every 4 months or sooner as needed. 07/08/2020: She had improvement of left chest wall pain after workup in Feb 2020,but recently notes increased left chest wall pain worse with deep inspiration. Will send of CT Chest with contrast and contact with results and earlier followup as necessary. Otherwise continue every 4 month f/u for clinical exam. Continue Tamoxifen as directed--will consider change to AI therapy when postmenopausal. Continue gabapentin 300mg tid for hot flashes. 07/27/2020: Virtual visit follow-up left chest wall pain and CT of chest with contrast which shows persistent left chest wall nodule consistent with prior lymph node on ultrasound. The patient does have a history of hidradenitis suppurativa and this may be a reactive lymph node, however due to pain in the area and fci of her prior surgeon I referring her to Dr. Plunkett of general surgery for further evaluation and excisional biopsy if he feels this isindicated. Otherwise I will continue to follow her every 4 months as previouslydirected. She will continue tamoxifen 20 mg daily and gabapentin 500 mg 3 timesdaily for hot flashes. Prior dyspnea has improved and she does not have any infiltrates on CT of chest. 11/23/2020: No changes on exam and prior evaluation by Dr. Plunkett with no concern for excisional biopsy of prior reactive lymph nodes. She notes her adenopathy has improved since starting Humira for hidradenitis suppurativa. We will arrange for surveillance left axillary ultrasound prior to her next scheduled visit in March 2021 and if no evidence of recurrence at that time,she will be followed on an every 6-month visit. 04/28/2021: No changes on physical exam and recent left axillary ultrasound did not show any significant adenopathy. She did however have 2 hospitalizations inthe last 6 months for sepsis at [facility] resulting from cellulitis of the left upper extremity. She is pending rheumatology evaluation and I am sending laboratories with serum protein electrophoresis with immunofixation and kappa/lambda light chain analysis to evaluate for possible hypogammaglobulinemiaincreasing her risk of systemic infection. We also sending estradiol, LH and FSH to evaluate possible perimenopausal state and will contact her for telephonefollow-up visit in 2 weeks. We will determine frequency of follow-up based on her results. She knows to call us sooner with any questions/concerns. This is a moderate complexity visit over 35 minutes to review exam, recent hospital stay, and follow-up plan. 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 We stopped monthly Lupron therapy at end of chemotherapy as she does not wish to preserve fertility at this point. Since she was free of menses at one year post-chemotherapy, we again sent LH, FSH, and estradiol with baseline DEXA scan in spring 2019. Will potentially change to aromatase inhibitor therapy only if postmenopausal on testing as noted above, otherwise continue tamoxifen due to LH and FSH still in premenopausal ranges on testing March 2021. We will reevaluate hormone studies annually. (3) History of Gram positive sepsis Because of 2 hospitalizations for gram-positive sepsis resolving cellulitis in the last 6 months, we are sending work-up for hypogammaglobulinemia as noted above (4) Left-sided chest wall pain Maria M reports increased chest wall pain without radiculopathy over the past month. She is concerned that this could be related to recurrence and concern for pancreatic neoplasm given her PTEN mutation which places her at potential increased risk. Due to concerning symptoms and higher risk Oncotype score (47) for recurrence, I sent her for CT of the chest which excluded metastatic disease. General surgery referral for possible excision as noted above. (5) Vasomotor symptoms due to menopause Gabapentin for postmenopausal hot flashes--if she changes to aromatase inhibitor therapy due to menopause, she wishes to titrate off gabapentin if symptoms improving. Now using a wrist device for hot flashes which controls her symptoms. (6) Hidradenitis suppurativa In about July 2018, she noted left groin swelling with normal CBC. Patient has known history of hidradenitis suppurativa and known sulfa allergy. We initially treated her for possible MRSA with doxycycline 100 mg twice daily for 1 week and advised to go to emergency department if worsening of swelling or pain. She followed up with her primary physician who prescribed topical antifungal therapy but she had ongoing swelling and drainage of this area without erythema. She had significant improvement with Diflucan 100 mg daily--we continued this for the remainder of chemotherapy, then titrated off. No change in scarring in bilateral axillae or evidence of recurrence in that region. --As noted above she was hospitalized early April 2019 at [facility] for sepsis and infusion port was removed. She was noted to have strep infection and I discussed use of nasal Bactroban x3 days with use of topical Bactroban to skin lesions overlying her gluteal cleft. She should use antibacterial soap such as pHisoHex to prevent recurrent bacterial infection at least 2 or 3 times per week. --She reported some recurrent fullness in her gluteal cleft and now follows with dermatology. Significant improvement of symptoms from hidradenitis suppurativa since starting Humira therapy with dermatology. Pending rheumatology evaluation. (7) Monoallelic mutation of SARABJIT gene Patient was found to have SARABJIT mutation on genetic testing and received appropriate genetic counseling. She has already had bilateral mastectomy but will be speaking with family members regarding recommendations for screening for this breast cancer associated gene. There is also an association with pancreatic cancer and I contacted [facility] to see if there is any recommended surveillance imaging or testing recommended for patients with this mutation. Further surveillance for pancreatic cancer is not recommended based on discussion with medical genetics. No concerning findings on CT of chest June 2020 as noted above. (8) Encounter for monitoring tamoxifen therapy Other than hot flashes tolerating well. We discussed risks of thromboembolic disease. We will continue to monitor on therapy for 10-year course--potentially change to aromatase inhibitor if she has menopause documented after 1 year of no menses with suppressed estradiol levels. Her most recent estradiol level 01/18/2020 was suppressed but LH and FSH were still in the premenopausal range. Resending LH, FSH, and estradiol as noted above and will contact with results on phone follow-up in 2 weeks. - Chemo Plan Number of Cycles: 12 - weekly paclitaxel Goal of Treatment: Curative - Time with Patient Time Spent with Patient (Follow Up Visit): 35 minutes - Follow-up symptoms, perimenopausal testing, and recent hospitalization for sepsis Coordination of Care & Counseling Time: Greater than 50% of time spent with patient was for coordination of care (as documented) and [id number] counseling of patient and/or family. Dictated By: Tanya Washington MD DD/ [id number] Signed By: <Electronically signed by MD Tanya Washington> 04/28/21 1355 [facility] Work Phone: [phone] 788-255904-26-2021 Progress note Author Tanya Washington [facility] November 23, 2020 10:21am Note Date/Time November 23, 2020 9:5 2am [facility] [place] [address] Hem/Onc Follow Up Note - OP Signed Patient: Maria M Mckeon MR#: [id number] : 1970 Acct:[id number] Age/Sex: 50 / F Type: REG RCR Copies to: DO Albert Johns MD Philip M Hutchison~ Subjective Date/Time of Service: Date of Service: 11/23/2020 Time of Service: 09:51 Chief Complaint: Patient is here today for 4 month follow up visit for cancer ofthe right breast. Her left sided chest wall pain has improved. She states hot flashes about the same. She has a bone bruise on her left chakraborty. HPI: 11/23/2020: Here for 4-month follow-up with no interval complaints. Since she has been on Humira her left axillary swelling is improved as is her left chest wall discomfort. We decided that since her CT in June showed no evidence ofaxillary adenopathy and Dr. Plunkett did not feel anything concerning on exam, we will defer her next left axillary ultrasound to prior to her March 2021 follow-up. She also reports a recent injury to her left leg and had a bone bruise but no other interval changes in her history. 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 We will defer next follow-up to her March 2021 which will be 3 years from original diagnosis and if no evidence of recurrence or follow-up will be every 6 months thereafter until 5 years. She continues tamoxifen 20 mg daily with some intermittent hot flashes but has an electronic cooling device that she wears on her right wrist which is effective. 07/27/2020: Virtual visit followup of CT Chest. Left chest wall discomfort tends to come and go. We reviewed CT of chest showing no evidence of recurrent or metastatic disease, although there was an incompletely imaged nodule that appeared to be consistent with a lymph node. She feels there may be some point tenderness over that area and her surgeon Dr. Mendoza from 2 years ago has now retired. She is agreeable to referral to Dr. Plunkett with general surgeryfor evaluation of this area and potential biopsy/resection if he feels this is indicated. She does note that her hot flashes have improved and we discussed potentially increasing her gabapentin dose, however we will continue to observe her symptoms. No other interval changes in medical history since her last visit07/08/2020. If assessment by general surgery is unremarkable she will follow-up with me in 4 months or sooner as needed. 07/08/2020: Maria M is here for 4 month followup. She reports increased left greater than right chest wall discomfort recently. No chest wall masses or significant lymphedema. No cough, but mild dyspnea and pain with deep inspiration. She had a fever last week but negative coronavirus testing. No bowel or bladder complaints--seeing dermatology and currently on an antibiotic course for a skin breakout with no recent axillary or groin outbreaks of hidradenitis suppurativa. Hot flashes stable on hormonal therapy. We will order chest CT for chest wall pain (prior bone scan negative in 02/2020) and contact her by phone with results. If negative, next f/u in 4 months. 03/11/2020: Maria M presents for 3 month followup, now nearly 2 years from diagnosis of [id number] right breast cancer, ER+, [place] neg, Her neg high risk [id number] s/p upfront bilateral mastectomy, adjuvant dose dense AC Taxol therapy, then tamoxifen. She notes that over the past month she has been having recurrent lumbar pain and cervical pain, worse with prolonged standing and walking. Denies any radiculopathy and has not had saddle paresthesias or change in bowel or bladder function. She has a history of vulvar lesions that were attributed to nabothian cysts in the past, however she feels that these are potentially associated with skin cancer and is planning to resume follow-up with Dr. Clarkof dermatology. The patient was hospitalized once since her last visit in November due to lactic acidosis that was attributed to her metformin therapy. Her primary physician Dr. Christianson has taken her off metformin and she is managing herdiabetes with low carbohydrate diet only --She also discussed that she has known PTEN mutation and ask whether she shouldbe evaluated for pancreatic cancer surveillance. Per NCCN guidelines, there is no recommended pancreatic cancer surveillance for this mutation, however given her recent back pain, she will have CT of cervical spine as well as chest abdomen and pelvis to exclude other bony metastatic disease or pancreas lesion as source of her persistent back pain given her known mutation. I also will send bone scan to correlate with CT scans. She does not have any evidence of recurrence over the chest wall, however this will be evaluated with her CT scan and bone scan for restaging. She denies any cough or dyspnea and has been appropriately isolating during the COVID-19 pandemic. --At last visit we ordered estradiol with LH/FSH to determine if she is postmenopausal. This returned with low estradiol but LH and FSH are still in the premenopausal range. She had a baseline DEXA scan which is within normal limits. I will defer changing her to aromatase inhibitor therapy pending her CTand bone scans above which will be discussed by phone. If she does have bony progression of disease, she would likely be changed to aromatase inhibitor with Cyclin dependent-kinase 4/6 inhibitor and I would give her GnRH agonist to suppress potential menses. Otherwise if no metastatic disease identified I willcontinue her on current tamoxifen dosing. The patient is in agreement with thisplan. 12/11/2019: Maria M is here for 3 month f/u. No skin changes or masses over bilateral mastectomy sites, but last Monday she noted itching/burning of left posterior chest wall consistent with shingles. Currently taking Valtrex twice daily. 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 Has not had return of menses since end of chemotherapy. She agrees to LH/FSH and estradiol to determine if menopausal and will have baseline DEXA scan. If consistent with menopause, we will change Tamoxifen to Anastrozole 1mg daily. Discussed possible myalgias/arthralgias with AI therapy. --she will be contacted with DEXA and hormone test results. If she changes to anastrozole, we will reassess hot flashes and possibly titrate off gabapentin therapy. Next f/u in 3 months or sooner as needed. 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 No recurrent hydradenitis suppurativa lesions. Still has hot flashes, but improved control on gabapentin 300mg tid and would like to continue current dosing. She does not want to escalate dose due to concerns for sedation. 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 --Her chest wall exam reveals no evidence of recurrence of breast cancer. She has no palpable masses, tenderness, and does not have lymphedema of either upperextremity. She has no bowel or bladder complaints and no recent urinary tract infections. She is tolerating tamoxifen therapy well other than hot flashes. She has not had menstrual period since starting Lupron with chemotherapy. She will return for follow-up exam in 3 months. PREVIOUS HISTORY: This is a 50 year old lady who found a large mass in her right upper outer quadrant breast in March. She was immediately referred for mammogram and ultrasound and subsequent US guided needle biopsy 04/20/2018 of clinical 5 cmmass at 10 o'clock--this revealed an invasive mammary carcinoma, grade 2-3, ER 95%, [place] 0%, Her2 negative. She did not see medical oncology or discuss breast conserving therapy or immediate reconstruction with her surgeon. On 05/07/2018, she underwent right modified radical mastectomy with axillary lymph node dissection (no attempt for sentinel lymph node) and left simple mastectomy with axillary dissection. Pathology showed right breast with 4.2cm mass, 4 lymph nodes negative--ER/[place]/Her2 unchanged. No cancer in left breast or 3 lymph nodes. Bone scan and CT scan of the chest, abdomen/pelvis were performed at baseline due to some persistent chest wall pain after mastectomy but she was not found tohave any evidence of metastatic disease. 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 She previously completed 4 cycles of dose dense AC. Cycle 1, day 1: 07/06/2018. 09/07/2018 was cycle 1 day 1 of weekly paclitaxel 80 mg/m? IV for 12 weeks (last dose 11/30/2018). She stopped Lupron monthly with chemotherapy after completion of Taxol. This was ordered for ovarian suppression, as the patient had her IUD removed. No breakthrough bleeding noted. No fever/chills, chest pain, cough, SOB, abdominal pain, diarrhea/constipation, skin rash or lower extremity edema. She has tolerated all cycles of AC reasonably well with no significant nausea. She noted dysuria during AC cycle 3 and subsequent urinalysis showed 4 + leukocyte esterase and 20-49 Urine WBC's. Subsequent culture was negative, but patient was started on prophylactic antibiotics due to immunosuppression. --Patient has had multiple episodes of urine frequency and dysuria with urinalyses x3 during the course of chemotherapy which all show mixed positive growth. Symptoms did not respond to antibiotics and I recommended Pyridium for symptomatic management 3 times daily and evaluation by gynecology for her dysuria and possible cath urine specimen. Symptoms of dysuria resolved after completion of Taxol chemotherapy. --She has resolution of prior erythema and mild drainage of the bilateral eyes and had been following with ophthalmology. No changes in vision related to this. --She notes intermittent numbness of fingers and toes that does not interfere with function. We reduced Taxol to 60% dose and she feels that her toe and finger numbness is slowly improving since end of chemotherapy, now mainly in toes only. --At follow-up in early July 2018, she noted swelling over the left labia for3-4 days, associated with mild discomfort but no significant pain or fluctuance. There also had mild skin breakdown in the bilateral inguinal creases. This wasconsistent with recurrence of her hidradenitis suppurativa and she completed antibiotics for this and was maintained on topical antifungal medication. No need for drainage of abscess or imaging as this was nontender and no fluctuance was noted. --At follow-up September 2018, she had persistent swelling and drainage with an ulcerated area over her left labia. This was a fungal complication of her hidradenitis suppurativa and ulcerations are improved but not completely resolved. No surrounding erythema or pain. Due to ongoing swelling and ulceration we decided to continue Diflucan for the remainder of her chemotherapy. Since that time she has had significant improvement of swelling and drainage over the labia and groin area with marked improvement of the prior ulcerated area. Breakdown in the bilateral inguinal creases has now resolved. This will also be followed by ICHTHYOLOGIST. --She has persistent mild fatigue and she received an [id number] for further chemotherapy and lab draws. No erythema, tenderness, or symptoms of infection. Prior crusting over infusion port resolved. 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 This has been associated with moderate penetrance for breast cancer and the patient was recommended for familial counseling for other family members that may need to be tested for this. It also is associated with ataxia and telangiectasia but is not associated with herskin variance for recurrent infection (hidradenitis suppurativa). The patient has had bilateral mastectomy and no other surgical therapy is recommended. --I informed her that [facility] recommended based on SARABJIT gene mutation. --11/29/2018: We started adjuvant tamoxifen therapy 20 mg daily for 10 years if she remains premenopausal, but may have transition to aromatase inhibitor if menopause is demonstrated. She has not had any bleeding since starting Lupron with her first cycle, but had prior IUD and we will observe for symptoms of menopause and recurrence of menses after chemotherapy. She will not continue LHRH agonist therapy as she does not wish to have further fertility preservation. 12/17/2018: Patient presented for urgent evaluation due to newly discovered 1 cm nodule in the left axilla. She was performing self exam and noted firm nodule without overlying erythema or tenderness. She was concerned this could be a local recurrence. She has not followed up with her prior surgeon Dr. Anne Marie rubin. She agreed to evaluation with ultrasound and potential biopsy within the next week and will be scheduled this evaluation Monday. 12/27/2018: Patient is here for brief follow-up of pathology from left axillary nodule biopsy. This returned with fibroadipose and lymphoid tissue but no evidence of malignancy. She has no tenderness at site and elects to continue observation with ultrasound and clinical exam, consider referral back to generalsurgery for reexcision if clinical growth of lesion. She started tamoxifen 20 mg daily on 12/24/2018 with hot flashes but no other significant symptoms. She will return for survivorship review of symptoms in 3 months and we will order follow-up left axillary ultrasound prior to that visit. She may return sooner as needed. Prior dysuria has completely resolved. She has had some vaginal spotting but no menstrual cycle since end of chemotherapy. She declines further Lupron therapy as she is not planning further childbearing. 03/27/2019: Maria M is here for routine follow-up. She has had no interval changes in medical history. Prior axillary nodule was biopsied 12/19/2018 and showed no evidence of local recurrence--only fibroadipose tissue and fat necrosis. She has not had any other abnormalities on self-exam. She continues to have hot flashes and is on Paxil 40 mg daily which treats her depression wellbut has not affected her hot flashes. She agrees to a trial of gabapentin with escalating doses starting at 100 mg nightly the first night, then twice daily for 3 days, then 3 times daily for 1 week, 200 mg 3 times daily for 1 week, [id number] mg 3 times daily for 1 week. We will follow-up with her in 1 month to see if hot flashes are well controlled after gabapentin titration. She may stop dose escalation if she has any side effects or has significant improvement of her hot flashes. She has mild stable dyspnea with exertion from baseline. She notes she is improving her regular activities since completion of prior therapy. No other concerns today. 06/20/2019: Maria M is here for 3-month follow-up. She relates sepsis hospitalization at [facility] and we do not have records for review. She had removal of her infusion port and likely had source of infection from recurrent hidradenitis suppurativa of left axilla. This resolved on appropriate antibiotic therapy. Her prior labial wounds have now healed although she has 2 areas in her gluteal cleft which have swollen consistent with her hidradenitis suppurativa. We discussed possible streptococcal and staphylococcal carriage inher nasal membranes due to her recurrent skin infections and are utilizing Bactroban intranasally for 3 days and as needed Bactroban to her new skin lesions. She does not have any fluctuance indicative of active infection, however I encouraged her to use either pHisoHex or Hibiclens at least 2-3 times weekly over her entire skin to prevent recurrent infections. DIAGNOSIS: 1. Right upper outer quadrant [id number] (4.2 cm primary, 4 LN neg), moderately differentiated adenocarcinoma, ER 90%, [place] 0%, Her2 not overexpressed --Sent Oncotype DX on specimen. Reviewed with patient 06/28/2018. Recurrence score returned high risk 47 (correlating to 10 -year recurrence of 29%). Counseled patient for dense dense AC Taxol chemotherapy. --Notes some shortness of breath, intermittent cough and chest wall pain. Had normal baseline echo but 2 cm cyst seen in the liver. Ordering staging bone scan with CT of chest abdomen pelvis due to symptoms prior to chemotherapy. --Completed adjuvant dose dense AC x4, weekly Taxol x12 chemotherapy. No indication for postmastectomy radiation. Tamoxifen day 1 12/24/2018, tolerating well. 2. Bilateral mastectomy with axillary lymph node dissection 05/07/2018 3. History of multiple skin squamous cell carcinoma excisions, most recently 12/2017 4. History of resection of hydradenitis suppuritiva bilateral axillae --during chemotherapy, she had groin and perineal hidradenitis suppuritiva--improved with antibiotics and antifungal therapy, but maintaining oral Diflucan until the end of chemotherapy 5. HTN 6. Hypothyroidism 7. Chronic sinusitis 8. IBS/diverticulosis 9. Recurrent urinary urgency and dysuria. Has had 3 urinalyses since start ofchemo which show gross pyuria but cultures show mixed positive skin contaminants. She received 1 course of antibiotics, but due to persistent symptoms I sent her to nursing home administrator Dr. Gilbert in [place] for evaluation of her urgency/dysuria. Urgency and dysuria has resolved since chemotherapy ended. 10. Pea sized lump left axilla detected on self exam 12/14/2018--referral for US and biopsy 12/19/2018 consistent with fibroadipose and lymphoid tissue but no evidence of malignancy. We have decided to follow with every 3-month ultrasoundand clinical exam, consider excisional biopsy if further growth of lesion. - Summary of Therapies Summary of Therapies: 1. Bilateral mastectomy with axillary lymph node dissection 05/07/2018 2. Oncotype Dx returned with high risk recurrence score and patient was counseled on 06/28/2018 regarding adjuvant chemotherapy with dose dense AC/paclitaxel. Completing staging with CT chest abdomen pelvis and bone scan for postmastectomy chest wall pain, cough, and liver cyst seen on echocardiogram. Baseline cardiac function is normal. 3. Started chemotherapy: 07/06/2018 Dose-dense AC followed by weekly paclitaxel (Category 1) Day 1: Doxorubicin 60mg/m2 IV Day 1: Cyclophosphamide 600mg/m2 IV. Repeat cycle every 14 days for 4 cycles, followed by: Day 1: Paclitaxel 80mg/m2 via 1-hour IV infusion weekly for 12 weeks. (Reduced to 60% dose due to neuropathy)--last dose 11/30/2018 4. Adjuvant hormonal therapy 2 weeks after completion of chemotherapy: she is premenopausal therefore started tamoxifen 20 mg daily 12/24/2018 for 10 years, ortransition to aromatase inhibitor therapy at the time of menopause. Testing hormonal studies 11/2019 and reviewed results as per HPI (change to anastrazole if menopausal). ROS Details: All systems reviewed & no additional complaints except as documented Subjective/ROS - Narrative: ROS Details: All systems reviewed & no additional complaints except as documented Constitutional: fair state of general health, able to conduct usual activities, mild decrease in activity level and exercise tolerance due to bone bruise left leg, mild intentional weight loss on diabetic diet, no weight gain Eyes: no double vision, resolution of prior bilateral eye redness/drainage--on eyedrops from [facility] [place]. No vision change. Ears, nose, mouth, throat: no headaches, no vertigo, no lightheadedness, no nasal congestion, no rhinorrhea, no epistaxis, no gingival bleeding, no sore throat Cardiovascular: + chest wall pain (left axillary line, likely musculoskeletal),no palpitations, no syncope, no dyspnea on exertion, no edema, no heart murmur Respiratory: Recent mild increased shortness of breath with exertion, no wheezing, no cough, no sputum production, no respiratory infections, no TB exposure, resolution of prior chest wall pain and subjective fullness over her mastectomy site. Gastrointestinal: no change in appetite, no dysphagia, no indigestion, no abdominal pain, no nausea, no vomiting, no jaundice, no constipation, no diarrhea, no abnormal stools, no change in bowel habits Genitourinary: Resolved urgency, resolved urinary frequency and dysuria, no hematuria, no oliguria, no stones, no urinary retention. No current labial swelling/discomfort--now on suppressive antibiotics prescribed by dermatology. Also has known history of hidradenitis suppurativa. No inguinal adenopathy. Musculoskeletal: About 1 week history of cervical and lumbar pain as per HPI without radiculopathy--worse with walking and prolonged standing, no swelling, no redness Integumentary: other - multiple healed excisions of skin cancers, no rash, no bleeding or bruising, no itching--left labial swelling has recurred but prior ulceration resolved--no longer noting erythema or skin breakdown in the bilateral inguinal creases after oral Diflucan while on chemotherapy. No skin lesions in the gluteal cleft. Integumentary (breast): incision site - well healed bilateral mastectomy, resolved tenderness over bilateral chest wall without palpable masses, no swelling, well-healed right axillary incision. 12/14/2018 noted new left 1cm axillary nodule--evaluation with US and biopsy 12/19/2018 negative for malignancy. Nodule regressed and nontender follow-up 03/27/2019. Wearing left lymphedema sleeve today-stable 1+ lymphedema. --left posterior chest vesicular rash consistent with herpes zoster at visit 12/11/2019--now resolved. Neurological: no tremor, no incoordination, mild intermittent paresthesias improved in hands, no memory loss Psychiatric: no anxiety, no depression Endocrine: no hormone therapy, positive heat intolerance and flushing on tamoxifen therapy--trial of gabapentin added 03/27/2019, now hot flashes controlled on 300mg tid. Also using electronic cooling device on wrist. Hematologic/Lymphatic: no anemia, no enlarged lymph nodes Allergic/Immunologic: no reaction to drugs PMFSH - History Attestation statement: The following information was validated with the patient. Source: Old Records Reviewed - Social History Smoking Status: Never smoker Substance Use Type: None Home Medications & Allergies Allergies Sulfa (Sulfonamide Antibiotics) Allergy (Verified 11/23/20 09:40) Hives Home Medications ondansetron HCl [Zofran] 8 mg PO TID PRN #30 tab 06/28/18 [Rx Confirmed 11/23/20] loteprednol etabonate [Lotemax] 1 drp EYE-BOTH QID 10/05/18 [History Confirmed 11/23/20] mupirocin 1 applic TOPICAL BID PRN 30 Days #100 g 06/20/19 [Rx Confirmed 11/23/20] citalopram [Celexa] 20 mg PO DAILY 09/12/19 [History Confirmed 11/23/20] amlodipine 10 mg PO DAILY 12/11/19 [History Confirmed 11/23/20] losartan 100 mg PO DAILY 12/11/19 [History Confirmed 11/23/20] triamterene-hydrochlorothiazid 1 cap PO DAILY 12/11/19 [History Confirmed 11/23/20] tamoxifen 20 mg PO DAILY #90 tab 01/13/20 [Rx Confirmed 11/23/20] thyroid (pork) [Nature-Throid] 65 mg PO BID 03/11/20 [History Confirmed 11/23/20] cefuroxime axetil 500 mg PO BID 07/08/20 [History Confirmed 11/23/20] dapagliflozin [Farxiga] 5 mg PO DAILY 07/08/20 [History Confirmed 11/23/20] liothyronine 5 mcg PO DAILY 07/08/20 [History Confirmed 11/23/20] gabapentin 300 mg PO TID 90 Days #270 cap 09/21/20 [Rx Confirmed 11/23/20] adalimumab [Humira] 40 mg SUBCUT Q2W 11/23/20 [History Confirmed 11/23/20] levothyroxine 50 mcg PO DAILY 11/23/20 [History Confirmed 11/23/20] Objective - Height/Weight Height/Weight: Height 5 ft 3 in Weight 97.069 kg BSA for Today's Weight 2.07 - Vital Signs Vital Signs: 11/23/20 09:41 Temperature 97.8 F Pulse Rate [Left Brachial] 97 H Respiratory Rate 20 Blood Pressure [Left Arm] 137/82 02 Sat by Pulse Oximetry 98 - Pain Chest Pain Intensity: 4 Generalized Pain Intensity: 4 Groin Pain Intensity: 2 Left Flank Pain Intensity: 3 Bilateral Hip Pain Intensity: 2 Bilateral Knee Pain Intensity: 2 Lower Back Pain Intensity: 0 Abdomen Pain Intensity: 2 - Emotional Needs Assessment Emotional Needs Assessment: Emotional Needs Identified? No Physical Exam Narrative: CONSTITUTIONAL: The patient is in no acute distress. HEAD / FACE: Normocephalic. EYES: Pupils are equal and reactive to light. Conjunctivae and lids are benign in appearance. Ocular movement intact. EARS: Hearing grossly intact. NOSE / MOUTH / THROAT: Nose, mouth, tongue and oropharynx are benign in appearance. No signs of inflammation. NECK / THYROID: Neck is supple. Thyroid is symmetrical, without thyromegaly, masses or palpable nodules. LYMPHATIC: No palpable cervical, supraclavicular, axillary, or inguinal adenopathy. RESPIRATORY: Normal to inspection. Lungs clear to auscultation and percussion. No wheezing, rales, rhonchi or rubs. Normal effort. CARDIOVASCULAR: Regular rate and rhythm. No murmurs, gallops, or rubs. BREASTS: No chest wall or axillary erythema or tenderness. Well-healed bilateral mastectomies. No supraclavicular or infraclavicular adenopathy. Left lymphedema sleeve in place. VASCULAR: Carotid, radial, femoral and pedal pulses present bilaterally. No bruits. ABDOMEN: Bowel sounds normoactive. Soft, nontender and non-distended. No hepatosplenomegaly. No masses. GENITOURINARY: No CVA tenderness. No suprapubic fullness or tenderness. No groinadenopathy. No evidence of hernias. INTEGUMENTARY: The skin is unremarkable. No active lesions consistent with hidradenitis suppurativa. No other rashes. No suspicious lesions BACK / SPINE: The back is tender over the lumbar vertebrae, but negative straight leg raise. No step-off deformity. MUSCULOSKELETAL: Normal musculature, no joint deformities or abnormalities, normal range of motion for all four extremities. She is able to ambulate independently. EXTREMITIES: No edema, cyanosis or clubbing. No Nidhi sign. NEUROLOGICAL: Alert and oriented. Cranial nerves intact. No gross motor or sensory deficits. PSYCHIATRIC: No anxiety or evidence of depression. - ECOG Performance Status ECOG Score: 1 Results - Labs Labs: Diagram of Most Recent CBC and CMP 11/21/20 11:26 11/21/20 11:26 Labs - Last 7 Days 11/21/20 11:26: PHA Creatinine Clear 89.66, Sodium 133 L, Potassium 3.8, Chloride 98, Carbon Dioxide 21.6 L, BUN 18, Creatinine 0.86, Est GFR ( Amer) > 60, Est GFR (Non-Af Amer) > 60, Glucose 361 H, Calcium 9.4, Total Bilirubin 0.6, AST 27, ALT 17, Alkaline Phosphatase 68, Total Protein 7.4, Albumin 4.0, Globulin 3.4, Albumin/Globulin Ratio 1.2, TSH 3rd Generation 1.74 11/21/20 11:26: Corrected WBC 7.7, Uncorrected WBC Count 7.7, RBC 5.19 H, Hgb 15.2, Hct 43.8, MCV 84.4, MCH 29.3, MCHC 34.7, RDW 15.0, Plt Count 278, MPV 7.3,Neut % (Auto) 77.0, Lymph % (Auto) 18.8, [place] % (Auto) 3.8, Eos % (Auto) 0.1, Baso % (Auto) 0.3, Neut # (Auto) 5.9, Lymph # (Auto) 1.5, [place] # (Auto) 0.3, Eos# (Auto) 0.0, Baso # (Auto) 0.0, Nucleated RBC % (auto) 0.2 - Impressions No new imaging for review. Will have surveillance left axillary ultrasound prior to next follow-up in March 2021. Assessment and Plan - TNM Staging Staging: pT2 (4.2cm) pN0 cM0 invasive ductal carcinoma, estrogen receptor +95%, progesterone receptor negative 0%, HER-2 negative, grade 2 (1) Cancer of right breast, stage 2 This is a 50 yo female who discovered a right upper outer quadrant breast mass and underwent bilateral mastectomy 05/07/2018. Final pathology returned as a pT2(4.2cm) pN0 (only 4 lymph nodes excised--possibly less nodes due to prior hydradenitis suppurativa surgery) M0. The tumor is moderately differentiated estrogen receptor positive (0%), progesterone negative (0%), Her2 negative neoplasm. Menopausal status is somewhat unclear with IUD in place--this was removed since start of chemo. Patient does not have a history of tubal ligation. She remained on Lupron injections only during chemotherapy and we decided against further Lupron as this is not indicated for fertility preservation. Lupron was stopped early November 2018 with last chemotherapy. She has not resumed regular menses since end of Lupron therapy. She receives gabapentin for hot flashes with improvement of symptoms. Since tumor was < 5cm, negative lymph nodes, and negative margins, she did not require postmastectomy radiation therapy. I sent the tumor specimen for OncotypeDx which returned with high risk recurrence score of 47 consistent with 29% recurrence at 10 years with hormonal therapy alone. Baseline Echo showed normalejection fraction, however a 2 cm hepatic cyst of unclear etiology was seen on echo. CT of chest abdomen and pelvis + bone scan due to chest wall pain, cough,an indeterminate liver cyst seen on echo were ordered--all were found to be unremarkable. No metastatic disease on bone scan. ----- ----- Completed 4 cycles dose dense AC, then 12 weekly paclitaxel with last treatment 11/29/2018. She tolerated this very well; only complaint is mild intermittent peripheral numbness and much improved labial swelling/perineal ulcerations due to hidradenitis suppurativa which was initially treated with antibiotics/oral Diflucan 100 mg daily during chemotherapy with significant improvement of symptoms. Prior recurrent dysuria with negative urine cultures but mixed positive skin contaminant growth. I recommended reevaluation by ICHTHYOLOGIST for her dysuria and to determine other potential etiologies of dysuria, but symptoms appear improved after a trial of Pyridium 100 mg 3 times daily as needed for remainder of chemotherapy. 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 She has stable mild fatigue. No issues with nausea/vomiting or diarrhea. Laboratories unremarkable. 12/28/2018: She started tamoxifen therapy on 12/24/2018. She is tolerating this well other than daily hot flashes. She had some vaginal spotting but has not had a menstrual period since last visit for Lupron on 12/06/2018. 03/27/2019: Survivorship after follow-up ultrasound for her left axillary nodulenegative for recurrence. Tolerating tamoxifen reasonably well except hot flashes. She is on maximal dose of paclitaxel 40 mg daily which is effective for her depression but not for hot flashes. We titrated dose of gabapentin and reevaluated by phone at 1 month. We deferred follow-up imaging for prior indeterminate hepatic cyst on imaging--no abnormality seen on CT of abdomen pelvis in June 2018. There is no recommendation for routine surveillance forpancreatic cancer given her SARABJIT mutation (discussed with medical genetics--unlikely to benefit from additional cancer screening but may offer a trial at [facility]). 06/20/2019: She noted hospitalization for sepsis at [facility] in early April 2019 and infusion port was removed. Recurrent hidradenitis suppurativa gluteal cleft. We treated her with pHisoHex and nasal Bactroban for staph carriage as well as topical Bactroban to these lesions. 09/12/2019: No issues on physical exam, continue workup by primary physician with PFTs for persistent dyspnea. Gabapentin now stable dose at 300mg tid with stable hot flashes. Continues paroxetine for depression. Next follow-up in 3 months for clinical exam. 12/11/2019: Treated with Valtrex for zoster. Now that she is 1 year from end ofchemotherapy on Tamoxifen without return of menses, will send LH/FSH and estradiol and baseline DEXA scan and contact with results. If menopausal, I will start Anastrozole 1mg daily and reassess at 3 month followup. If hot flashes are improved on anastrozole, we may titrate off gabapentin. Total duration of therapy will be 10 years due to SARABJIT mutation. 03/11/2020: Patient now reports 1 month of cervical and lumbar pain. Also noted fullness over left chest wall which was concerning to her despite prior bilateral mastectomy. Given her new concerns and known history of increased pancreatic cancer risk with SARABJIT mutation now 2 years from bilateral mastectomy for stage II breast cancer, I am sending for CT of cervical spine as well as CT chest abdomen pelvis to evaluate her areas of pain in addition to bone scan to exclude bony metastatic disease. She will be contacted with these results. At this time since her FSH and LH are still in premenopausal range despite low estradiol I will continue tamoxifen 20 mg daily. If the patient does have bony metastatic disease we will likely change her to aromatase inhibitor with CDK 4/6inhibitor and ovarian suppression therapy. The patient will be contacted with these results and if no evidence of metastatic disease her follow-up will be extended to every 4 months or sooner as needed. 07/08/2020: She had improvement of left chest wall pain after workup in Feb 2020,but recently notes increased left chest wall pain worse with deep inspiration. Will send of CT Chest with contrast and contact with results and earlier followup as necessary. Otherwise continue every 4 month f/u for clinical exam. Continue Tamoxifen as directed--will consider change to AI therapy when postmenopausal. Continue gabapentin 300mg tid for hot flashes. 07/27/2020: Virtual visit follow-up left chest wall pain and CT of chest with contrast which shows persistent left chest wall nodule consistent with prior lymph node on ultrasound. The patient does have a history of hidradenitis suppurativa and this may be a reactive lymph node, however due to pain in the area and fci of her prior surgeon I referring her to Dr. Plunkett of general surgery for further evaluation and excisional biopsy if he feels this isindicated. Otherwise I will continue to follow her every 4 months as previouslydirected. She will continue tamoxifen 20 mg daily and gabapentin 500 mg 3 timesdaily for hot flashes. Prior dyspnea has improved and she does not have any infiltrates on CT of chest. 11/23/2020: No changes on exam and prior evaluation by Dr. Plunkett with no concern for excisional biopsy of prior reactive lymph nodes. She notes her adenopathy has improved since starting Humira for hidradenitis suppurativa. We will arrange for surveillance left axillary ultrasound prior to her next scheduled visit in March 2021 and if no evidence of recurrence at that time,she will be followed on an every 6-month visit. She knows to call us sooner with any questions/concerns. This is a moderate complexity visit over 30 minutes to review exam and follow-up plan. 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 We stopped monthly Lupron therapy at end of chemotherapy as she does not wish to preserve fertility at this point. Since she is free of menses at one year post-chemotherapy, we again sent LH, FSH, and estradiol with baseline DEXA scan as noted above and are working up for potential metastatic disease with imaging. Will potentially change to aromatase inhibitor therapy only if metastatic disease as noted above, otherwise continue tamoxifen due to LH and FSH still in premenopausal ranges. We will reevaluate hormone studies annually. (3) Left-sided chest wall pain Maria M reports increased chest wall pain without radiculopathy over the past month. She is concerned that this could be related to recurrence and concern for pancreatic neoplasm given her PTEN mutation which places her at potential increased risk. Due to concerning symptoms and higher risk Oncotype score (47) for recurrence, I sent her for CT of the chest which excluded metastatic disease. General surgery referral for possible excision as noted above. She will follow-up in 4 months. (4) Vasomotor symptoms due to menopause Gabapentin for postmenopausal hot flashes--if she changes to aromatase inhibitor therapy due to menopause, she wishes to titrate off gabapentin if symptoms improving. Now using a wrist device for hot flashes which controls her symptoms. (5) Hidradenitis suppurativa In about July 2018, she noted left groin swelling with normal CBC. Patient has known history of hidradenitis suppurativa and known sulfa allergy. We initially treated her for possible MRSA with doxycycline 100 mg twice daily for 1 week and advised to go to emergency department if worsening of swelling or pain. She followed up with her primary physician who prescribed topical antifungal therapy but she had ongoing swelling and drainage of this area without erythema. She had significant improvement with Diflucan 100 mg daily--we continued this for the remainder of chemotherapy, then titrated off. No change in scarring in bilateral axillae or evidence of recurrence in that region. --As noted above she was hospitalized early April 2019 at [facility] for sepsis and infusion port was removed. She was noted to have strep infection and I discussed use of nasal Bactroban x3 days with use of topical Bactroban to skin lesions overlying her gluteal cleft. She should use antibacterial soap such as pHisoHex to prevent recurrent bacterial infection at least 2 or 3 times per week. --She reported some recurrent fullness in her gluteal cleft and now follows with dermatology. Significant improvement of symptoms from hidradenitis suppurativa since starting Humira therapy with dermatology. Will reassess at next follow-up in March 2021. (6) Monoallelic mutation of SARABJIT gene Patient was found to have SARABJIT mutation on genetic testing and received appropriate genetic counseling. She has already had bilateral mastectomy but will be speaking with family members regarding recommendations for screening for this breast cancer associated gene. There is also an association with pancreatic cancer and I contacted [facility] to see if there is any recommended surveillance imaging or testing recommended for patients with this mutation. Further surveillance for pancreatic cancer is not recommended based on discussion with medical genetics. No concerning findings on CT of chest June 2020 as noted above. (7) Encounter for monitoring tamoxifen therapy Other than hot flashes tolerating well. We discussed risks of thromboembolic disease. We will continue to monitor on therapy for 10-year course--potentially change to aromatase inhibitor if she has menopause documented after 1 year of no menses with suppressed estradiol levels. Her most recent estradiol level 01/18/2020 was suppressed but LH and FSH were still in the premenopausal range and will defer changing therapy unless change in disease status. - Chemo Plan Chemo Plan (Dose, Rate, Freq): Tamoxifen 20 mg daily, change to Anastrozole when menopausal for total 10-year course due to SARABJIT mutation. Number of Cycles: 12 - weekly paclitaxel Goal of Treatment: Curative - Time with Patient Time Spent with Patient (Follow Up Visit): 25 minutes Coordination of Care & Counseling Time: Greater than 50% of time spent with patient was for coordination of care (as documented) and [id number] counseling of patient and/or family. Dictated By: Tanya Washington MD DD/ [id number] Signed By: <Electronically signed by MD Tanya Washington> 11/23/20 1021 [facility] Work Phone: [phone] Progress note Author Tanya Washington [facility] July 27, 2020 3:00pm Note Date/Time July 27, 2020 9:13am [facility] at [address] [place] [address] Hem/Onc Follow Up Note - OP Signed Patient: Maria M Mckeon MR#: [id number] : 1970 Acct:[id number] Age/Sex: 50 / F Type: REG RCR Copies to: DO Albert Johns MD Philip M Hutchison~ Subjective Date/Time of Service: Date of Service: 07/27/2020 Time of Service: 09:12 Chief Complaint: Patient has a virtual visit today. Called patient to review meds and see if she had any concerns. She stated that she would just like to know the results of the tests she had done. HPI: 07/27/2020: Virtual visit followup of CT Chest. Left chest wall discomfort tends to come and go. We reviewed CT of chest showing no evidence of recurrent or metastatic disease, although there was an incompletely imaged nodule that appeared to be consistent with a lymph node. She feels there may be some point tenderness over that area and her surgeon Dr. Mendoza from 2 years ago has now retired. She is agreeable to referral to Dr. Plunkett with general surgeryfor evaluation of this area and potential biopsy/resection if he feels this is indicated. She does note that her hot flashes have improved and we discussed potentially increasing her gabapentin dose, however we will continue to observe her symptoms. No other interval changes in medical history since her last visit07/08/2020. If assessment by general surgery is unremarkable she will follow-up with me in 4 months or sooner as needed. 07/08/2020: Maria M is here for 4 month followup. She reports increased left greater than right chest wall discomfort recently. No chest wall masses or significant lymphedema. No cough, but mild dyspnea and pain with deep inspiration. She had a fever last week but negative coronavirus testing. No bowel or bladder complaints--seeing dermatology and currently on an antibiotic course for a skin breakout with no recent axillary or groin outbreaks of hidradenitis suppurativa. Hot flashes stable on hormonal therapy. We will order chest CT for chest wall pain (prior bone scan negative in 02/2020) and contact her by phone with results. If negative, next f/u in 4 months. 03/11/2020: Maria M presents for 3 month followup, now nearly 2 years from diagnosis of [id number] right breast cancer, ER+, [place] neg, Her neg high risk Oncotype 47 s/p upfront bilateral mastectomy, adjuvant dose dense AC Taxol therapy, then tamoxifen. She notes that over the past month she has been havingrecurrent lumbar pain and cervical pain, worse with prolonged standing and walking. Denies any radiculopathy and has not had saddle paresthesias or changein bowel or bladder function. She has a history of vulvar lesions that were attributed to nabothian cysts in the past, however she feels that these are potentially associated with skin cancer and is planning to resume follow-up withDr. Clark of dermatology. The patient was hospitalized once since her last visit in November due to lactic acidosis that was attributed to her metformin therapy. Her primary physician Dr. Christianson has taken her off metformin and she is managing her diabetes with low carbohydrate diet only --She also discussed that she has known PTEN mutation and ask whether she shouldbe evaluated for pancreatic cancer surveillance. Per NCCN guidelines, there is no recommended pancreatic cancer surveillance for this mutation, however given her recent back pain, she will have CT of cervical spine as well as chest abdomen and pelvis to exclude other bony metastatic disease or pancreas lesion as source of her persistent back pain given her known mutation. I also will send bone scan to correlate with CT scans. She does not have any evidence of recurrence over the chest wall, however this will be evaluated with her CT scan and bone scan for restaging. She denies any cough or dyspnea and has been appropriately isolating during the COVID-19 pandemic. --At last visit we ordered estradiol with LH/FSH to determine if she is postmenopausal. This returned with low estradiol but LH and FSH are still in the premenopausal range. She had a baseline DEXA scan which is within normal limits. I will defer changing her to aromatase inhibitor therapy pending her CTand bone scans above which will be discussed by phone. If she does have bony progression of disease, she would likely be changed to aromatase inhibitor with Cyclin dependent-kinase 4/6 inhibitor and I would give her GnRH agonist to suppress potential menses. Otherwise if no metastatic disease identified I willcontinue her on current tamoxifen dosing. The patient is in agreement with thisplan. 12/11/2019: Maria M is here for 3 month f/u. No skin changes or masses over bilateral mastectomy sites, but last [place] she noted itching/burning of left posterior chest wall consistent with shingles. Currently taking Valtrex twice daily. 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 Has not had return of menses since end of chemotherapy. She agrees to LH/FSH and estradiol to determine if menopausal and will have baseline DEXA scan. If consistent with menopause, we will change Tamoxifen to Anastrozole 1mg daily. Discussed possible myalgias/arthralgias with AI therapy. --she will be contacted with DEXA and hormone test results. If she changes to anastrozole, we will reassess hot flashes and possibly titrate off gabapentin therapy. Next f/u in 3 months or sooner as needed. 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 No recurrent hydradenitis suppurativa lesions. Still has hot flashes, but improved control on gabapentin 300mg tid and would like to continue current dosing. She does not want to escalate dose due to concerns for sedation. 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 --Her chest wall exam reveals no evidence of recurrence of breast cancer. She has no palpable masses, tenderness, and does not have lymphedema of either upperextremity. She has no bowel or bladder complaints and no recent urinary tract infections. She is tolerating tamoxifen therapy well other than hot flashes. She has not had menstrual period since starting Lupron with chemotherapy. She will return for follow-up exam in 3 months. PREVIOUS HISTORY: This is a 50 year old lady who found a large mass in her right upper outer quadrant breast in March. She was immediately referred for mammogram and ultrasound and subsequent US guided needle biopsy 04/20/2018 of clinical 5 cmmass at 10 o'clock--this revealed an invasive mammary carcinoma, grade 2-3, ER 95%, [place] 0%, Her2 negative. She did not see medical oncology or discuss breast conserving therapy or immediate reconstruction with her surgeon. On 05/07/2018, she underwent right modified radical mastectomy with axillary lymph node dissection (no attempt for sentinel lymph node) and left simple mastectomy with axillary dissection. Pathology showed right breast with 4.2cm mass, 4 lymph nodes negative--ER/[place]/Her2 unchanged. No cancer in left breast or 3 lymph nodes. Bone scan and CT scan of the chest, abdomen/pelvis were performed at baseline due to some persistent chest wall pain after mastectomy but she was not found tohave any evidence of metastatic disease. 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 She previously completed 4 cycles of dose dense AC. Cycle 1, day 1: 07/06/2018. 09/07/2018 was cycle 1 day 1 of weekly paclitaxel 80 mg/m? IV for 12 weeks (last dose 11/30/2018). She stopped Lupron monthly with chemotherapy after completion of Taxol. This was ordered for ovarian suppression, as the patient had her IUD removed. No breakthrough bleeding noted. No fever/chills, chest pain, cough, SOB, abdominal pain, diarrhea/constipation, skin rash or lower extremity edema. She has tolerated all cycles of AC reasonably well with no significant nausea. She noted dysuria during AC cycle 3 and subsequent urinalysis showed 4 + leukocyte esterase and 20-49 Urine WBC's. Subsequent culture was negative, but patient was started on prophylactic antibiotics due to immunosuppression. --Patient has had multiple episodes of urine frequency and dysuria with urinalyses x3 during the course of chemotherapy which all show mixed positive growth. Symptoms did not respond to antibiotics and I recommended Pyridium for symptomatic management 3 times daily and evaluation by gynecology for her dysuria and possible cath urine specimen. Symptoms of dysuria resolved after completion of Taxol chemotherapy. --She has resolution of prior erythema and mild drainage of the bilateral eyes and had been following with ophthalmology. No changes in vision related to this. --She notes intermittent numbness of fingers and toes that does not interfere with function. We reduced Taxol to 60% dose and she feels that her toe and finger numbness is slowly improving since end of chemotherapy, now mainly in toes only. --At follow-up in early July 2018, she noted swelling over the left labia for3-4 days, associated with mild discomfort but no significant pain or fluctuance. There also had mild skin breakdown in the bilateral inguinal creases. This wasconsistent with recurrence of her hidradenitis suppurativa and she completed antibiotics for this and was maintained on topical antifungal medication. No need for drainage of abscess or imaging as this was nontender and no fluctuance was noted. --At follow-up September 2018, she had persistent swelling and drainage with an ulcerated area over her left labia. This was a fungal complication of her hidradenitis suppurativa and ulcerations are improved but not completely resolved. No surrounding erythema or pain. Due to ongoing swelling and ulceration we decided to continue Diflucan for the remainder of her chemotherapy. Since that time she has had significant improvement of swelling and drainage over the labia and groin area with marked improvement of the prior ulcerated area. Breakdown in the bilateral inguinal creases has now resolved. This will also be followed by ICHTHYOLOGIST. --She has persistent mild fatigue and she received an [id number] for further chemotherapy and lab draws. No erythema, tenderness, or symptoms of infection. Prior crusting over infusion port resolved. 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 This has been associated with moderate penetrance for breast cancer and the patient was recommended for familial counseling for other family members that may need to be tested for this. It also is associated with ataxia and telangiectasia but is not associated with herskin variance for recurrent infection (hidradenitis suppurativa). The patient has had bilateral mastectomy and no other surgical therapy is recommended. --I informed her [facility] based on SARABJIT gene mutation. --11/29/2018: We started adjuvant tamoxifen therapy 20 mg daily for 10 years if she remains premenopausal, but may have transition to aromatase inhibitor if menopause is demonstrated. She has not had any bleeding since starting Lupron with her first cycle, but had prior IUD and we will observe for symptoms of menopause and recurrence of menses after chemotherapy. She will not continue LHRH agonist therapy as she does not wish to have further fertility preservation. 12/17/2018: Patient presented for urgent evaluation due to newly discovered 1 cm nodule in the left axilla. She was performing self exam and noted firm nodule without overlying erythema or tenderness. She was concerned this could be a local recurrence. She has not followed up with her prior surgeon Dr. Kenney diagnosis. She agreed to evaluation with ultrasound and potential biopsy within the next week and will be scheduled this evaluation Monday. 12/27/2018: Patient is here for brief follow-up of pathology from left axillary nodule biopsy. This returned with fibroadipose and lymphoid tissue but no evidence of malignancy. She has no tenderness at site and elects to continue observation with ultrasound and clinical exam, consider referral back to generalsurgery for reexcision if clinical growth of lesion. She started tamoxifen 20 mg daily on 12/24/2018 with hot flashes but no other significant symptoms. She will return for survivorship review of symptoms in 3 months and we will order follow-up left axillary ultrasound prior to that visit. She may return sooner as needed. Prior dysuria has completely resolved. She has had some vaginal spotting but no menstrual cycle since end of chemotherapy. She declines furtherLupron therapy as she is not planning further childbearing. 03/27/2019: Maria M is here for routine follow-up. She has had no interval changes in medical history. Prior axillary nodule was biopsied 12/19/2018 and showed no evidence of local recurrence--only fibroadipose tissue and fat necrosis. She has not had any other abnormalities on self-exam. She continues to have hot flashes and is on Paxil 40 mg daily which treats her depression wellbut has not affected her hot flashes. She agrees to a trial of gabapentin with escalating doses starting at 100 mg nightly the first night, then twice daily for 3 days, then 3 times daily for 1 week, 200 mg 3 times daily for 1 week, [id number] mg 3 times daily for 1 week. We will follow-up with her in 1 month to see if hot flashes are well controlled after gabapentin titration. She may stop dose escalation if she has any side effects or has significant improvement of her hot flashes. She has mild stable dyspnea with exertion from baseline. She notes she is improving her regular activities since completion of prior therapy. No other concerns today. 06/20/2019: Maria M is here for 3-month follow-up. She relates sepsis hospitalization at [facility] and we do not have records for review. Shehad removal of her infusion port and likely had source of infection from recurrent hidradenitis suppurativa of left axilla. This resolved on appropriateantibiotic therapy. Her prior labial wounds have now healed although she has 2 areas in her gluteal cleft which have swollen consistent with her hidradenitis suppurativa. We discussed possible streptococcal and staphylococcal carriage inher nasal membranes due to her recurrent skin infections and are utilizing Bactroban intranasally for 3 days and as needed Bactroban to her new skin lesions. She does not have any fluctuance indicative of active infection, however Iencouraged her to use either pHisoHex or Hibiclens at least 2-3 times weekly over her entire skin to prevent recurrent infections. DIAGNOSIS: 1. Right upper outer quadrant [id number] (4.2 cm primary, 4 LN neg), moderately differentiated adenocarcinoma, ER 90%, [place] 0%, Her2 not overexpressed --Sent Oncotype DX on specimen. Reviewed with patient 06/28/2018. Recurrence score returned high risk 47 (correlating to 10 -year recurrence of 29%). Counseled patient for dense dense AC Taxol chemotherapy. --Notes some shortness of breath, intermittent cough and chest wall pain. Had normal baseline echo but 2 cm cyst seen in the liver. Ordering staging bone scan with CT of chest abdomen pelvis due to symptoms prior to chemotherapy. --Completed adjuvant dose dense AC x4, weekly Taxol x12 chemotherapy. No indication for postmastectomy radiation. Tamoxifen day 1 12/24/2018, tolerating well. 2. Bilateral mastectomy with axillary lymph node dissection 05/07/2018 3. History of multiple skin squamous cell carcinoma excisions, most recently 12/2017 4. History of resection of hydradenitis suppuritiva bilateral axillae --during chemotherapy, she had groin and perineal hidradenitis suppuritiva--improved with antibiotics and antifungal therapy, but maintaining oral Diflucan until the end of chemotherapy 5. HTN 6. Hypothyroidism 7. Chronic sinusitis 8. IBS/diverticulosis 9. Recurrent urinary urgency and dysuria. Has had 3 urinalyses since start ofchemo which show gross pyuria but cultures show mixed positive skin contaminants. She received 1 course of antibiotics, but due to persistent symptoms I sent her to nursing home administrator Dr. Gilbert in [place] for evaluation of her urgency/dysuria. Urgency and dysuria has resolved since chemotherapy ended. 10. Pea sized lump left axilla detected on self exam 12/14/2018--referral for US and biopsy 12/19/2018 consistent with fibroadipose and lymphoid tissue but no evidence of malignancy. We have decided to follow with every 3-month ultrasoundand clinical exam, consider excisional biopsy if further growth of lesion. - Summary of Therapies Summary of Therapies: 1. Bilateral mastectomy with axillary lymph node dissection 05/07/2018 2. Oncotype Dx returned with high risk recurrence score and patient was counseled on 06/28/2018 regarding adjuvant chemotherapy with dose dense AC/paclitaxel. Completing staging with CT chest abdomen pelvis and bone scan for postmastectomy chest wall pain, cough, and liver cyst seen on echocardiogram. Baseline cardiac function is normal. 3. Started chemotherapy: 07/06/2018 Dose-dense AC followed by weekly paclitaxel (Category 1) Day 1: Doxorubicin 60mg/m2 IV Day 1: Cyclophosphamide 600mg/m2 IV. Repeat cycle every 14 days for 4 cycles, followed by: Day 1: Paclitaxel 80mg/m2 via 1-hour IV infusion weekly for 12 weeks. (Reduced to 60% dose due to neuropathy)--last dose 11/30/2018 4. Adjuvant hormonal therapy 2 weeks after completion of chemotherapy: she is premenopausal therefore started tamoxifen 20 mg daily 12/24/2018 for 10 years, ortransition to aromatase inhibitor therapy at the time of menopause. Testing hormonal studies 11/2019 and reviewed results as per HPI (change to anastrazole if menopausal). ROS Details: All systems reviewed & no additional complaints except as documented Subjective/ROS - Narrative: ROS Details: All systems reviewed & no additional complaints except as documented Constitutional: fair state of general health, able to conduct usual activities, mild decrease in activity level and exercise tolerance due to new back pain, mild intentional weight loss on diabetic diet, no weight gain Eyes: no double vision, resolution of prior bilateral eye redness/drainage--on eyedrops from [place]. No vision change. Ears, nose, mouth, throat: no headaches, no vertigo, no lightheadedness, no nasal congestion, no rhinorrhea, no epistaxis, no gingival bleeding, no sore throat Cardiovascular: + chest wall pain (left axillary line, likely musculoskeletal),no palpitations, no syncope, no dyspnea on exertion, no edema, no heart murmur Respiratory: Recent mild increased shortness of breath with exertion, no wheezing, no cough, no sputum production, no respiratory infections, no TB exposure, positive for intermittent chest wall pain and subjective fullness overher mastectomy site. Gastrointestinal: no change in appetite, no dysphagia, no indigestion, no abdominal pain, no nausea, no vomiting, no jaundice, no constipation, no diarrhea, no abnormal stools, no change in bowel habits Genitourinary: Resolved urgency, resolved urinary frequency and dysuria, no hematuria, no oliguria, no stones, no urinary retention. No current labial swelling/discomfort--now on suppressive antibiotics prescribed by dermatology. Also has known history of hidradenitis suppurativa. No inguinal adenopathy. Musculoskeletal: About 1 week history of cervical and lumbar pain as per HPI without radiculopathy--worse with walking and prolonged standing, no swelling, no redness Integumentary: other - multiple healed excisions of skin cancers, no rash, no bleeding or bruising, no itching--left labial swelling has recurred but prior ulceration resolved--no longer noting erythema or skin breakdown in the bilateral inguinal creases after oral Diflucan while on chemotherapy. No skin lesions in the gluteal cleft. Integumentary (breast): incision site - well healed bilateral mastectomy, mild tenderness over bilateral chest wall without palpable masses, no swelling, well-healed right axillary incision. 12/14/2018 noted new left 1cm axillary nodule--evaluation with US and biopsy 12/19/2018 negative for malignancy. Noduleregressed and nontender follow-up 03/27/2019. No lymphedema of either upper extremity. --left posterior chest vesicular rash consistent with herpes zoster at visit 12/11/2019--now resolved. Neurological: no tremor, no incoordination, mild intermittent paresthesias improved in hands, no memory loss Psychiatric: no anxiety, no depression Endocrine: no hormone therapy, positive heat intolerance and flushing on tamoxifen therapy--trial of gabapentin added 03/27/2019, now hot flashes controlled on 300mg tid Hematologic/Lymphatic: no anemia, no enlarged lymph nodes Allergic/Immunologic: no reaction to drugs PMFSH - History Attestation statement: The following information was validated with the patient. Source: Old Records Reviewed - Social History Smoking Status: Never smoker Substance Use Type: None Home Medications & Allergies Allergies Sulfa (Sulfonamide Antibiotics) Allergy (Verified 07/17/20 13:55) Hives Home Medications ondansetron HCl [Zofran] 8 mg PO TID PRN #30 tab 06/28/18 [Rx Confirmed 07/27/20] loteprednol etabonate [Lotemax] 1 drp EYE-BOTH QID 10/05/18 [History Confirmed 07/27/20] mupirocin 1 applic TOPICAL BID PRN 30 Days #100 g 06/20/19 [Rx Confirmed 07/27/20] citalopram [Celexa] 20 mg PO DAILY 09/12/19 [History Confirmed 07/27/20] gabapentin 300 mg PO TID 90 Days #270 cap 11/05/19 [Rx Confirmed 07/27/20] amlodipine 10 mg PO DAILY 12/11/19 [History Confirmed 07/27/20] losartan 100 mg PO DAILY 12/11/19 [History Confirmed 07/27/20] triamterene-hydrochlorothiazid 1 cap PO DAILY 12/11/19 [History Confirmed 07/27/20] tamoxifen 20 mg PO DAILY #90 tab 01/13/20 [Rx Confirmed 07/27/20] thyroid (pork) [Nature-Throid] 65 mg PO BID 03/11/20 [History Confirmed 07/27/20] cefuroxime axetil 500 mg PO BID 07/08/20 [History Confirmed 07/27/20] dapagliflozin [Farxiga] 5 mg PO DAILY 07/08/20 [History Confirmed 07/27/20] liothyronine 5 mcg PO DAILY 07/08/20 [History Confirmed 07/27/20] Objective - Height/Weight Height/Weight: Height 5 ft 3 in Weight 98.883 kg BSA for Today's Weight 2.07 - Vital Signs Vital Signs: Vital signs deferred due to virtual visit. - Pain Chest Pain Intensity: 4 Generalized Pain Intensity: 4 Groin Pain Intensity: 2 Left Flank Pain Intensity: 3 Bilateral Hip Pain Intensity: 2 Bilateral Knee Pain Intensity: 2 Lower Back Pain Intensity: 4 Abdomen Pain Intensity: 2 - Emotional Needs Assessment Emotional Needs Assessment: Emotional Needs Identified? No Physical Exam Narrative: CONSTITUTIONAL: The patient is in no acute distress. HEAD / FACE: Normocephalic. EYES: Pupils are equal and reactive to light. Conjunctivae and lids are benign in appearance. Ocular movement intact. EARS: Hearing grossly intact. Full physical exam deferred due to virtual visit. See prior exam below from 07/08/2020. NOSE / MOUTH / THROAT: Nose, mouth, tongue and oropharynx are benign in appearance. No signs of inflammation. NECK / THYROID: Neck is supple. Thyroid is symmetrical, without thyromegaly, masses or palpable nodules. LYMPHATIC: No palpable cervical, supraclavicular, axillary, or inguinal adenopathy. RESPIRATORY: Normal to inspection. Lungs clear to auscultation and percussion. No wheezing, rales, rhonchi or rubs. Normal effort. CARDIOVASCULAR: Regular rate and rhythm. No murmurs, gallops, or rubs. BREASTS: No chest wall or axillary erythema or tenderness. Well-healed bilateral mastectomies--I do not note suspicious mass over chest wall and patient's area of concern. No supraclavicular or infraclavicular adenopathy. VASCULAR: Carotid, radial, femoral and pedal pulses present bilaterally. No bruits. ABDOMEN: Bowel sounds normoactive. Soft, nontender and non-distended. No hepatosplenomegaly. No masses. GENITOURINARY: No CVA tenderness. No suprapubic fullness or tenderness. No groinadenopathy. No evidence of hernias. INTEGUMENTARY: The skin is unremarkable. No active lesions consistent with hidradenitis suppurativa. No other rashes. No suspicious lesions BACK / SPINE: The back is tender over the lumbar vertebrae, but negative straight leg raise. No step-off deformity. MUSCULOSKELETAL: Normal musculature, no joint deformities or abnormalities, normal range of motion for all four extremities. She is able to ambulate independently. EXTREMITIES: No edema, cyanosis or clubbing. No Nidhi sign. NEUROLOGICAL: Alert and oriented. Cranial nerves intact. No gross motor or sensory deficits. PSYCHIATRIC: No anxiety or evidence of depression. - ECOG Performance Status ECOG Score: 1 Results - Labs Labs: Diagram of Most Recent CBC and CMP 11/29/18 10:45 11/08/18 10:05 - Impressions CT chest 07/17/2020. CLINICAL DATA: Chest wall pain and shortness of breath. TECHNIQUE: CT of the chest was performed with intravenous contrast. Axial, sagittal, and coronal reconstructions were created and reviewed. This CT exam was performed using one or more of the following dose reduction techniques: Automated exposure control, adjustment of the mA and/or kV according to patient size, or use of iterative reconstruction technique. COMPARISON: 03/13/2020. FINDINGS: The patient is status post bilateral mastectomies and axillary node dissections. There is redemonstration of a nodular density in the subcutaneous tissues of the lateral wall of the mid chest on the left. This finding is incompletely imaged and could represent a lymph node. No other chest wall abnormality is identified. The heart is normal in size. The thoracic aorta appears unremarkable. There is no mediastinal or hilar lymphadenopathy. There isno hiatal hernia. The central airways appear unremarkable. No pulmonary consolidation or collapse is identified. No pleural effusion is seen. There are mild degenerative changes in the lower thoracic spine. Images of the upper abdomen demonstrate a fatty liver. CT/CT chest w con IMPRESSION: 1. Postsurgical changes. 2. Redemonstration but incomplete visualization of a nodular density in the subcutaneous tissues of the lateral wall of the left mid chest, potentially a lymph node. 3. Otherwise, no visible chest wall or other thoracic abnormality. 4. Fatty liver. Impression dictated by: Joe Weller Jr., M.D.07/17/2020 3:52 PM Assessment and Plan - TNM Staging Staging: pT2 (4.2cm) pN0 cM0 invasive ductal carcinoma, estrogen receptor +95%, progesterone receptor negative 0%, HER-2 negative, grade 2 (1) Cancer of right breast, stage 2 This is a 50 yo female who discovered a right upper outer quadrant breast mass and underwent bilateral mastectomy 05/07/2018. Final pathology returned as a pT2(4.2cm) pN0 (only 4 lymph nodes excised--possibly less nodes due to prior hydradenitis suppurativa surgery) M0. The tumor is moderately differentiated estrogen receptor positive (0%), progesterone negative (0%), Her2 negative neoplasm. Menopausal status is somewhat unclear with IUD in place--this was removedsince start of chemo. Patient does not have a history of tubal ligation. She remained on Lupron injections only during chemotherapy and we decided against further Lupron as this is not indicated for fertility preservation. Lupron was stopped early November 2018 with last chemotherapy. She has not resumed regular menses since end of Lupron therapy. She receives gabapentin for hot flashes with improvement of symptoms. Since tumor was < 5cm, negative lymph nodes, and negative margins, she did not require postmastectomy radiation therapy. I sent the tumor specimen for Oncotype Dx which returned with high risk recurrence score of 47 consistent with29% recurrence at 10 years with hormonal therapy alone. Baseline Echo showed normal ejection fraction, however a 2 cm hepatic cyst of unclear etiology was seen on echo. CT of chest abdomen and pelvis + bone scan due to chest wall pain, cough, an indeterminate liver cyst seen on echo were ordered--all were found to be unremarkable. No metastatic disease on bone scan. --- ----- Completed 4 cycles dose dense AC, then 12 weekly paclitaxel with last treatment 11/29/2018. She tolerated this very well; only complaint is mild intermittent peripheral numbness and much improved labial swelling/perineal ulcerations due to hidradenitis suppurativa which was initially treated with antibiotics/oral Diflucan 100 mg daily during chemotherapy with significant improvement of symptoms. Prior recurrent dysuria with negative urine cultures but mixed positive skin contaminant growth. I recommended reevaluation by ICHTHYOLOGIST for her dysuria and to determine other potential etiologies of dysuria, but symptoms appear improved after a trial of Pyridium 100 mg 3 times daily as needed for remainder of chemotherapy. 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 She has stable mild fatigue. No issues with nausea/vomiting or diarrhea. Laboratories unremarkable. 12/28/2018: She started tamoxifen therapy on 12/24/2018. She is tolerating this well other than daily hot flashes. She had some vaginal spotting but has not had a menstrual period since last visit for Lupron on 12/06/2018. 03/27/2019: Survivorship after follow-up ultrasound for her left axillary nodulenegative for recurrence. Tolerating tamoxifen reasonably well except hot flashes. She is on maximal dose of paclitaxel 40 mg daily which is effective for her depression but not for hot flashes. We titrated dose of gabapentin and reevaluated by phone at 1 month. We deferred follow-up imaging for prior indeterminate hepatic cyst on imaging--no abnormality seen on CT of abdomen pelvis in June 2018. There is no recommendation for routine surveillance forpancreatic cancer given her SARABJIT mutation (discussed with medical genetics--unlikely to benefit from additional cancer screening but may offer a trial at [facility]). 06/20/2019: She noted hospitalization for sepsis at [facility] in early April 2019 and infusion port was removed. Recurrent hidradenitis suppurativa gluteal cleft. We treated her with pHisoHex and nasal Bactroban for staph carriage as well as topical Bactroban to these lesions. 09/12/2019: No issues on physical exam, continue workup by primary physician with PFTs for persistent dyspnea. Gabapentin now stable dose at 300mg tid with stable hot flashes. Continues paroxetine for depression. Next follow-up in 3 months for clinical exam. 12/11/2019: Treated with Valtrex for zoster. Now that she is 1 year from end ofchemotherapy on Tamoxifen without return of menses, will send LH/FSH and estradiol and baseline DEXA scan and contact with results. If menopausal, I will start Anastrozole 1mg daily and reassess at 3 month followup. If hot flashes are improved on anastrozole, we may titrate off gabapentin. Total duration of therapy will be 10 years due to SARABJIT mutation. 03/11/2020: Patient now reports 1 month of cervical and lumbar pain. Also noted fullness over left chest wall which was concerning to her despite prior bilateral mastectomy. Given her new concerns and known history of increased pancreatic cancer risk with ASRABJIT mutation now 2 years from bilateral mastectomy for stage II breast cancer, I am sending for CT of cervical spine as well as CT chest abdomen pelvis to evaluate her areas of pain in addition to bone scan to exclude bony metastatic disease. She will be contacted with these results. At this time since her FSH and LH are still in premenopausal range despite low estradiol I will continue tamoxifen 20 mg daily. If the patient does have bony metastatic disease we will likely change her to aromatase inhibitor with CDK 4/6inhibitor and ovarian suppression therapy. The patient will be contacted with these results and if no evidence of metastatic disease her follow-up will be extended to every 4 months or sooner as needed. 07/08/2020: She had improvement of left chest wall pain after workup in Feb 2020,but recently notes increased left chest wall pain worse with deep inspiration. Will send of CT Chest with contrast and contact with results and earlier followup as necessary. Otherwise continue every 4 month f/u for clinical exam. Continue Tamoxifen as directed--will consider change to AI therapy when postmenopausal. Continue gabapentin 300mg tid for hot flashes. 07/27/2020: Virtual visit follow-up left chest wall pain and CT of chest with contrast which shows persistent left chest wall nodule consistent with prior lymph node on ultrasound. The patient does have a history of hidradenitis suppurativa and this may be a reactive lymph node, however due to pain in the area and fci of her prior surgeon I referring her to Dr. Plunkett of general surgery for further evaluation and excisional biopsy if he feels this isindicated. Otherwise I will continue to follow her every 4 months as previouslydirected. She will continue tamoxifen 20 mg daily and gabapentin 500 mg 3 timesdaily for hot flashes. Prior dyspnea has improved and she does not have any infiltrates on CT of chest. She knows to call us sooner with any questions/concerns. This is a moderate complexity virtual visit over [address] chest results and to address chest wall pain. 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 We stopped monthly Lupron therapy at end of chemotherapy as she does not wish to preserve fertility at this point. Since she is free of menses at one year post-chemotherapy, we again sent LH, FSH, and estradiol with baseline DEXA scan as noted above and are working up for potential metastatic disease with imaging. Will potentially change to aromatase inhibitor therapy only if metastatic disease as noted above, otherwise continue tamoxifen due to LH and FSH still in premenopausal ranges. We will reevaluate hormone studies annually. (3) Left-sided chest wall pain Maria M reports increased chest wall pain without radiculopathy over the past month. She is concerned that this could be related to recurrence and concern for pancreatic neoplasm given her PTEN mutation which places her at potential increased risk. Due to concerning symptoms and higher risk Oncotype score (47) for recurrence, I sent her for CT of the chest which excluded metastatic disease. General surgery referral for possible excision as noted above. She will follow-up in 4 months. (4) Vasomotor symptoms due to menopause Gabapentin for postmenopausal hot flashes--if she changes to aromatase inhibitor therapy due to menopause, she wishes to titrate off gabapentin if symptoms improving. (5) Hidradenitis suppurativa In about July 2018, she noted left groin swelling with normal CBC. Patient has known history of hidradenitis suppurativa and known sulfa allergy. We initially treated her for possible MRSA with doxycycline 100 mg twice daily for 1 week and advised to go to emergency department if worsening of swelling or pain. She followed up with her primary physician who prescribed topical antifungal therapy but she had ongoing swelling and drainage of this area without erythema. She had significant improvement with Diflucan 100 mg daily--we continued this for the remainder of chemotherapy, then titrated off. No change in scarring in bilateral axillae or evidence of recurrence in that region. --As noted above she was hospitalized early April 2019 at [facility] for sepsis and infusion port was removed. She was noted to have strep infection and I discussed use of nasal Bactroban x3 days with use of topical Bactroban to skin lesions overlying her gluteal cleft. She should use antibacterial soap such as pHisoHex to prevent recurrent bacterial infection at least 2 or 3 times per week. --She reported some recurrent fullness in her gluteal cleft and now follows with dermatology. Now on suppressive antibiotics. Will reassess at next follow-up in 4 months. (6) Monoallelic mutation of SARABJIT gene Patient was found to have SARABJIT mutation on genetic testing and received appropriate genetic counseling. She has already had bilateral mastectomy but will be speaking with family members regarding recommendations for screening for this breast cancer associated gene. There is also an association with pancreatic cancer and I contacted [facility] to see if there is any recommended surveillance imaging or testing recommended for patients with this mutation. Further surveillance for pancreatic cancer is not recommended based on discussion with medical genetics, however given her new complaint of chest wall pain she will have CT of chest as noted above. (7) Encounter for monitoring tamoxifen therapy Other than hot flashes tolerating well. We discussed risks of thromboembolic disease. We will continue to monitor on therapy for 10-year course--potentially change to aromatase inhibitor if she has menopause documented after 1 year of no menses with suppressed estradiol levels. Her most current estradiol level is suppressed but LH and FSH are still in the premenopausal range and will defer changing therapy unless change in disease status. - Chemo Plan Chemo Plan (Dose, Rate, Freq): Tamoxifen 20 mg daily, change to Anastrozole when menopausal for total 10-year course due to SARABJIT mutation. Goal of Treatment: Curative - Time with Patient Coordination of Care & Counseling Time: Greater than 50% of time spent with patient was for coordination of care (as documented) and [id number] counseling of patient and/or family. Dictated By: Tanya Washington MD DD/ 1 Signed By: <Electronically signed by MD Tanya Washington> 07/27/20 [address] [facility] Work Phone: [phone]) 817-803512-10-2020 Progress note Author Tanya Washington [facility] July 09, 2020 7:42am Note Date/Time July 08, 2020 2 :58pm [facility] [place] [address] Hem/Onc Follow Up Note - OP Signed Patient: Maria M Mckeon MR#: [id number] : 1970 Acct:[id number] Age/Sex: 50 / F Type: REG RCR Copies to: MD Driss Baum~ Subjective Date/Time of Service: Date of Service: 07/08/2020 Time of Service: 14:57 Chief Complaint: patient is here today for a 4 month follow up for breast cancer. She is having pain on both sides. She has had for about a month. HPI: 07/08/2020: Maria M is here for 4 month followup. She reports increased left greater than right chest wall discomfort recently. No chest wall masses or significant lymphedema. No cough, but mild dyspnea and pain with deep inspiration. She had a fever last week but negative coronavirus testing. No bowel or bladder complaints--seeing dermatology and currently on an antibiotic course for a skin breakout with no recent axillary or groin outbreaks of hidradenitis suppurativa. Hot flashes stable on hormonal therapy. We will order chest CT for chest wall pain (prior bone scan negative in 02/2020) and contact her by phone with results. If negative, next f/u in 4 months. 03/11/2020: Maria M presents for 3 month followup, now nearly 2 years from diagnosis of [id number] right breast cancer, ER+, [place] neg, Her neg high risk Oncotype 47 s/p upfront bilateral mastectomy, adjuvant dose dense AC Taxol therapy, then tamoxifen. She notes that over the past month she has been havingrecurrent lumbar pain and cervical pain, worse with prolonged standing and walking. Denies any radiculopathy and has not had saddle paresthesias or changein bowel or bladder function. She has a history of vulvar lesions that were attributed to nabothian cysts in the past, however she feels that these are potentially associated with skin cancer and is planning to resume follow-up withDr. Clark of dermatology. The patient was hospitalized once since her last visit in November due to lactic acidosis that was attributed to her metformin therapy. Her primary physician Dr. Christianson has taken her off metformin and she is managing her diabetes with low carbohydrate diet only --She also discussed that she has known PTEN mutation and ask whether she shouldbe evaluated for pancreatic cancer surveillance. Per NCCN guidelines, there is no recommended pancreatic cancer surveillance for this mutation, however given her recent back pain, she will have CT of cervical spine as well as chest abdomen and pelvis to exclude other bony metastatic disease or pancreas lesion as source of her persistent back pain given her known mutation. I also will send bone scan to correlate with CT scans. She does not have any evidence of recurrence over the chest wall, however this will be evaluated with her CT scan and bone scan for restaging. She denies any cough or dyspnea and has been appropriately isolating during the COVID-19 pandemic. --At last visit we ordered estradiol with LH/FSH to determine if she is postmenopausal. This returned with low estradiol but LH and FSH are still in the premenopausal range. She had a baseline DEXA scan which is within normal limits. I will defer changing her to aromatase inhibitor therapy pending her CTand bone scans above which will be discussed by phone. If she does have bony progression of disease, she would likely be changed to aromatase inhibitor with Cyclin dependent-kinase 4/6 inhibitor and I would give her GnRH agonist to suppress potential menses. Otherwise if no metastatic disease identified I willcontinue her on current tamoxifen dosing. The patient is in agreement with thisplan. 12/11/2019: Maria M is here for 3 month f/u. No skin changes or masses over bilateral mastectomy sites, but last Monday she noted itching/burning of left posterior chest wall consistent with shingles. Currently taking Valtrex twice daily. 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 Has not had return of menses since end of chemotherapy. She agrees to LH/FSH and estradiol to determine if menopausal and will have baseline DEXA scan. If consistent with menopause, we will change Tamoxifen to Anastrozole 1mg daily. Discussed possible myalgias/arthralgias with AI therapy. --she will be contacted with DEXA and hormone test results. If she changes to anastrozole, we will reassess hot flashes and possibly titrate off gabapentin therapy. Next f/u in 3 months or sooner as needed. 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 No recurrent hydradenitis suppurativa lesions. Still has hot flashes, but improved control on gabapentin 300mg tid and would like to continue current dosing. She does not want to escalate dose due to concerns for sedation. 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 --Her chest wall exam reveals no evidence of recurrence of breast cancer. She has no palpable masses, tenderness, and does not have lymphedema of either upperextremity. She has no bowel or bladder complaints and no recent urinary tract infections. She is tolerating tamoxifen therapy well other than hot flashes. She has not had menstrual period since starting Lupron with chemotherapy. She will return for follow-up exam in 3 months. PREVIOUS HISTORY: This is a 50 year old lady who found a large mass in her right upper outer quadrant breast in March. She was immediately referred for mammogram and ultrasound and subsequent US guided needle biopsy 04/20/2018 of clinical 5 cmmass at 10 o'clock--this revealed an invasive mammary carcinoma, grade 2-3, ER 95%, [place] 0%, Her2 negative. She did not see medical oncology or discuss breast conserving therapy or immediate reconstruction with her surgeon. On 05/07/2018, she underwent right modified radical mastectomy with axillary lymph node dissection (no attempt for sentinel lymph node) and left simple mastectomy with axillary dissection. Pathology showed right breast with 4.2cm mass, 4 lymph nodes negative--ER/[place]/Her2 unchanged. No cancer in left breast or 3 lymph nodes. Bone scan and CT scan of the chest, abdomen/pelvis were performed at baseline due to some persistent chest wall pain after mastectomy but she was not found tohave any evidence of metastatic disease. 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 She previously completed 4 cycles of dose dense AC. Cycle 1, day 1: 07/06/2018. 09/07/2018 was cycle 1 day 1 of weekly paclitaxel 80 mg/m? IV for 12 weeks (last dose 11/30/2018). She stopped Lupron monthly with chemotherapy after completion of Taxol. This was ordered for ovarian suppression, as the patient had her IUD removed. No breakthrough bleeding noted. No fever/chills, chest pain, cough, SOB, abdominal pain, diarrhea/constipation, skin rash or lower extremity edema. She has tolerated all cycles of AC reasonably well with no significant nausea. She noted dysuria during AC cycle 3 and subsequent urinalysis showed 4 + leukocyte esterase and 20-49 Urine WBC's. Subsequent culture was negative, but patient was started on prophylactic antibiotics due to immunosuppression. --Patient has had multiple episodes of urine frequency and dysuria with urinalyses x3 during the course of chemotherapy which all show mixed positive growth. Symptoms did not respond to antibiotics and I recommended Pyridium for symptomatic management 3 times daily and evaluation by gynecology for her dysuria and possible cath urine specimen. Symptoms of dysuria resolved after completion of Taxol chemotherapy. --She has resolution of prior erythema and mild drainage of the bilateral eyes and had been following with ophthalmology. No changes in vision related to this. --She notes intermittent numbness of fingers and toes that does not interfere with function. We reduced Taxol to 60% dose and she feels that her toe and finger numbness is slowly improving since end of chemotherapy, now mainly in toes only. --At follow-up in early July 2018, she noted swelling over the left labia for3-4 days, associated with mild discomfort but no significant pain or fluctuance. There also had mild skin breakdown in the bilateral inguinal creases. This wasconsistent with recurrence of her hidradenitis suppurativa and she completed antibiotics for this and was maintained on topical antifungal medication. No need for drainage of abscess or imaging as this was nontender and no fluctuance was noted. --At follow-up September 2018, she had persistent swelling and drainage with an ulcerated area over her left labia. This was a fungal complication of her hidradenitis suppurativa and ulcerations are improved but not completely resolved. No surrounding erythema or pain. Due to ongoing swelling and ulceration we decided to continue Diflucan for the remainder of her chemotherapy. Since that time she has had significant improvement of swelling and drainage over the labia and groin area with marked improvement of the prior ulcerated area. Breakdown in the bilateral inguinal creases has now resolved. This will also be followed by ICHTHYOLOGIST. --She has persistent mild fatigue and she received an [id number] for further chemotherapy and lab draws. No erythema, tenderness, or symptoms of infection. Prior crusting over infusion port resolved. 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 This has been associated with moderate penetrance for breast cancer and the patient was recommended for familial counseling for other family members that may need to be tested for this. It also is associated with ataxia and telangiectasia but is not associated with herskin variance for recurrent infection (hidradenitis suppurativa). The patient has had bilateral mastectomy and no other surgical therapy is recommended. --I informed her [facility] based on SARABJIT gene mutation. --11/29/2018: We started adjuvant tamoxifen therapy 20 mg daily for 10 years if she remains premenopausal, but may have transition to aromatase inhibitor if menopause is demonstrated. She has not had any bleeding since starting Lupron with her first cycle, but had prior IUD and we will observe for symptoms of menopause and recurrence of menses after chemotherapy. She will not continue LHRH agonist therapy as she does not wish to have further fertility preservation. 12/17/2018: Patient presented for urgent evaluation due to newly discovered 1 cm nodule in the left axilla. She was performing self exam and noted firm nodule without overlying erythema or tenderness. She was concerned this could be a local recurrence. She has not followed up with her prior surgeon Dr. Kenney diagnosis. She agreed to evaluation with ultrasound and potential biopsy within the next week and will be scheduled this evaluation Monday. 12/27/2018: Patient is here for brief follow-up of pathology from left axillary nodule biopsy. This returned with fibroadipose and lymphoid tissue but no evidence of malignancy. She has no tenderness at site and elects to continue observation with ultrasound and clinical exam, consider referral back to generalsurgery for reexcision if clinical growth of lesion. She started tamoxifen 20 mg daily on 12/24/2018 with hot flashes but no other significant symptoms. She will return for survivorship review of symptoms in 3 months and we will order follow-up left axillary ultrasound prior to that visit. She may return sooner as needed. Prior dysuria has completely resolved. She has had some vaginal spotting but no menstrual cycle since end of chemotherapy. She declines furtherLupron therapy as she is not planning further childbearing. 03/27/2019: Maria M is here for routine follow-up. She has had no interval changes in medical history. Prior axillary nodule was biopsied 12/19/2018 and showed no evidence of local recurrence--only fibroadipose tissue and fat necrosis. She has not had any other abnormalities on self-exam. She continues to havehot flashes and is on Paxil 40 mg daily which treats her depression well but hasnot affected her hot flashes. She agrees to a trial of gabapentin with escalating doses starting at 100 mg nightly the first night, then twice daily for 3 days, then 3 times daily for 1 week, 200 mg 3 times daily for 1 week, [id number] mg 3 times daily for 1 week. We will follow-up with her in 1 month to see if hot flashes are well controlled after gabapentin titration. She may stop dose escalation if she has any side effects or has significant improvement of her hot flashes. She has mild stable dyspnea with exertion from baseline. She notes she is improving her regular activities since completion of prior therapy. No other concerns today. 06/20/2019: Maria M is here for 3-month follow-up. She relates sepsis hospitalization at [facility] and we do not have records for review. Shehad removal of her infusion port and likely had source of infection from recurrent hidradenitis suppurativa of left axilla. This resolved on appropriateantibiotic therapy. Her prior labial wounds have now healed although she has 2 areas in her gluteal cleft which have swollen consistent with her hidradenitis suppurativa. We discussed possible streptococcal and staphylococcal carriage inher nasal membranes due to her recurrent skin infections and are utilizing Bactroban intranasally for 3 days and as needed Bactroban to her new skin lesions. She does not have any fluctuance indicative of active infection, however I encouraged her to use either pHisoHex or Hibiclens at least 2-3 times weekly over her entire skin to prevent recurrent infections. DIAGNOSIS: 1. Right upper outer quadrant [id number] (4.2 cm primary, 4 LN neg), moderately differentiated adenocarcinoma, ER 90%, [place] 0%, Her2 not overexpressed --Sent Oncotype DX on specimen. Reviewed with patient 06/28/2018. Recurrence score returned high risk 47 (correlating to 10 -year recurrence of 29%). Counseled patient for dense dense AC Taxol chemotherapy. --Notes some shortness of breath, intermittent cough and chest wall pain. Had normal baseline echo but 2 cm cyst seen in the liver. Ordering staging bone scan with CT of chest abdomen pelvis due to symptoms prior to chemotherapy. --Completed adjuvant dose dense AC x4, weekly Taxol x12 chemotherapy. No indication for postmastectomy radiation. Tamoxifen day 1 12/24/2018, tolerating well. 2. Bilateral mastectomy with axillary lymph node dissection 05/07/2018 3. History of multiple skin squamous cell carcinoma excisions, most recently 12/2017 4. History of resection of hydradenitis suppuritiva bilateral axillae --during chemotherapy, she had groin and perineal hidradenitis suppuritiva--improved with antibiotics and antifungal therapy, but maintaining oral Diflucan until the end of chemotherapy 5. HTN 6. Hypothyroidism 7. Chronic sinusitis 8. IBS/diverticulosis 9. Recurrent urinary urgency and dysuria. Has had 3 urinalyses since start ofchemo which show gross pyuria but cultures show mixed positive skin contaminants. She received 1 course of antibiotics, but due to persistent symptoms I sent her to nursing home administrator Dr. Gilbert in [place] for evaluation of her urgency/dysuria. Urgency and dysuria has resolved since chemotherapy ended. 10. Pea sized lump left axilla detected on self exam 12/14/2018--referral for US and biopsy 12/19/2018 consistent with fibroadipose and lymphoid tissue but no evidence of malignancy. We have decided to follow with every 3-month ultrasoundand clinical exam, consider excisional biopsy if further growth of lesion. - Summary of Therapies Summary of Therapies: 1. Bilateral mastectomy with axillary lymph node dissection 05/07/2018 2. Oncotype Dx returned with high risk recurrence score and patient was counseled on 06/28/2018 regarding adjuvant chemotherapy with dose dense AC/paclitaxel. Completing staging with CT chest abdomen pelvis and bone scan for postmastectomy chest wall pain, cough, and liver cyst seen on echocardiogram. Baseline cardiac function is normal. 3. Started chemotherapy: 07/06/2018 Dose-dense AC followed by weekly paclitaxel (Category 1) Day 1: Doxorubicin 60mg/m2 IV Day 1: Cyclophosphamide 600mg/m2 IV. Repeat cycle every 14 days for 4 cycles, followed by: Day 1: Paclitaxel 80mg/m2 via 1-hour IV infusion weekly for 12 weeks. (Reduced to 60% dose due to neuropathy)--last dose 11/30/2018 4. Adjuvant hormonal therapy 2 weeks after completion of chemotherapy: she is premenopausal therefore started tamoxifen 20 mg daily 12/24/2018 for 10 years, ortransition to aromatase inhibitor therapy at the time of menopause. Testing hormonal studies 11/2019 and reviewed results as per HPI (change to anastrazole if menopausal). ROS Details: All systems reviewed & no additional complaints except as documented Subjective/ROS - Narrative: ROS Details: All systems reviewed & no additional complaints except as documented Constitutional: fair state of general health, able to conduct usual activities, mild decrease in activity level and exercise tolerance due to new back pain, mild intentional weight loss on diabetic diet, no weight gain Eyes: no double vision, resolution of prior bilateral eye redness/drainage--on eyedrops from roller [place]. No vision change. Ears, nose, mouth, throat: no headaches, no vertigo, no lightheadedness, no nasal congestion, no rhinorrhea, no epistaxis, no gingival bleeding, no sore throat Cardiovascular: + chest wall pain (left axillary line, likely musculoskeletal),no palpitations, no syncope, no dyspnea on exertion, no edema, no heart murmur Respiratory: Recent mild increased shortness of breath with exertion, no wheezing, no cough, no sputum production, no respiratory infections, no TB exposure,positive for intermittent chest wall pain and subjective fullness over her mastectomy site. Gastrointestinal: no change in appetite, no dysphagia, no indigestion, no abdominal pain, no nausea, no vomiting, no jaundice, no constipation, no diarrhea, no abnormal stools, no change in bowel habits Genitourinary: Resolved urgency, resolved urinary frequency and dysuria, no hematuria, no oliguria, no stones, no urinary retention. No current labial swelling/discomfort--now on suppressive antibiotics prescribed by dermatology. Also has known history of hidradenitis suppurativa. No inguinal adenopathy. Musculoskeletal: About 1 week history of cervical and lumbar pain as per HPI without radiculopathy--worse with walking and prolonged standing, no swelling, no redness Integumentary: other - multiple healed excisions of skin cancers, no rash, no bleeding or bruising, no itching--left labial swelling has recurred but prior ulceration resolved--no longer noting erythema or skin breakdown in the bilateral inguinal creases after oral Diflucan while on chemotherapy. No skin lesions in the gluteal cleft. Integumentary (breast): incision site - well healed bilateral mastectomy, mild tenderness over bilateral chest wall without palpable masses, no swelling, well-healed right axillary incision. 12/14/2018 noted new left 1cm axillary nodule--evaluation with US and biopsy 12/19/2018 negative for malignancy. Noduleregressed and nontender follow-up 03/27/2019. No lymphedema of either upper extremity. --left posterior chest vesicular rash consistent with herpes zoster at visit 12/11/2019--now resolved. Neurological: no tremor, no incoordination, mild intermittent paresthesias improved in hands, no memory loss Psychiatric: no anxiety, no depression Endocrine: no hormone therapy, positive heat intolerance and flushing on tamoxifen therapy--trial of gabapentin added 03/27/2019, now hot flashes controlled on 300mg tid Hematologic/Lymphatic: no anemia, no enlarged lymph nodes Allergic/Immunologic: no reaction to drugs PMFSH - History Attestation statement: The following information was validated with the patient. Source: Old Records Reviewed - Social History Smoking Status: Never smoker Substance Use Type: None Home Medications & Allergies Allergies Sulfa (Sulfonamide Antibiotics) Allergy (Verified 07/08/20 14:50) Hives Home Medications ondansetron HCl [Zofran] 8 mg PO TID PRN #30 tab 06/28/18 [Rx Confirmed 07/08/20] loteprednol etabonate [Lotemax] 1 drp EYE-BOTH QID 10/05/18 [History Confirmed 07/08/20] mupirocin 1 applic TOPICAL BID PRN 30 Days #100 g 06/20/19 [Rx Confirmed 07/08/20] citalopram [Celexa] 20 mg PO DAILY 09/12/19 [History Confirmed 07/08/20] gabapentin 300 mg PO TID 90 Days #270 cap 11/05/19 [Rx Confirmed 07/08/20] amlodipine 10 mg PO DAILY 12/11/19 [History Confirmed 07/08/20] losartan 100 mg PO DAILY 12/11/19 [History Confirmed 07/08/20] triamterene-hydrochlorothiazid 1 cap PO DAILY 12/11/19 [History Confirmed 07/08/20] tamoxifen 20 mg PO DAILY #90 tab 01/13/20 [Rx Confirmed 07/08/20] thyroid (pork) [Nature-Throid] 65 mg PO BID 03/11/20 [History Confirmed 07/08/20] cefuroxime axetil 500 mg PO BID 07/08/20 [History Confirmed 07/08/20] dapagliflozin [Farxiga] 5 mg PO DAILY 07/08/20 [History Confirmed 07/08/20] liothyronine 5 mcg PO DAILY 07/08/20 [History Confirmed 07/08/20] Objective - Height/Weight Height/Weight: Height 5 ft 3 in Weight 98.883 kg BSA for Today's Weight 2.07 - Vital Signs Vital Signs: 07/08/20 14:51 Temperature 97.3 F L Pulse Rate [Left Brachial] 93 H Respiratory Rate 20 Blood Pressure [Left Arm] 119/79 02 Sat by Pulse Oximetry 95 - Pain Chest Pain Intensity: 4 Generalized Pain Intensity: 4 Groin Pain Intensity: 2 Left Flank Pain Intensity: 3 Bilateral Hip Pain Intensity: 2 Bilateral Knee Pain Intensity: 2 Lower Back Pain Intensity: 4 Abdomen Pain Intensity: 2 - Emotional Needs Assessment Emotional Needs Assessment: Emotional Needs Identified? No Distress Screening Total 0 Physical Exam Narrative: CONSTITUTIONAL: The patient is in no acute distress. HEAD / FACE: Normocephalic. EYES: Pupils are equal and reactive to light. Conjunctivae and lids are benign in appearance. Ocular movement intact. EARS: Hearing grossly intact. NOSE / MOUTH / THROAT: Nose, mouth, tongue and oropharynx are benign in appearance. No signs of inflammation. NECK / THYROID: Neck is supple. Thyroid is symmetrical, without thyromegaly, masses or palpable nodules. LYMPHATIC: No palpable cervical, supraclavicular, axillary, or inguinal adenopathy. RESPIRATORY: Normal to inspection. Lungs clear to auscultation and percussion. No wheezing, rales, rhonchi or rubs. Normal effort. CARDIOVASCULAR: Regular rate and rhythm. No murmurs, gallops, or rubs. BREASTS: No chest wall or axillary erythema or tenderness. Well-healed bilateral mastectomies--I do not note suspicious mass over chest wall and patient's area of concern. No supraclavicular or infraclavicular adenopathy. VASCULAR: Carotid, radial, femoral and pedal pulses present bilaterally. No bruits. ABDOMEN: Bowel sounds normoactive. Soft, nontender and non-distended. No hepatosplenomegaly. No masses. GENITOURINARY: No CVA tenderness. No suprapubic fullness or tenderness. No groinadenopathy. No evidence of hernias. INTEGUMENTARY: The skin is unremarkable. No active lesions consistent with hidradenitis suppurativa. No other rashes. No suspicious lesions BACK / SPINE: The back is tender over the lumbar vertebrae, but negative straight leg raise. No step-off deformity. MUSCULOSKELETAL: Normal musculature, no joint deformities or abnormalities, normal range of motion for all four extremities. She is able to ambulate independently. EXTREMITIES: No edema, cyanosis or clubbing. No Nidhi sign. NEUROLOGICAL: Alert and oriented. Cranial nerves intact. No gross motor or sensory deficits. PSYCHIATRIC: No anxiety or evidence of depression. - ECOG Performance Status ECOG Score: 1 Results - Labs Labs: Diagram of Most Recent CBC and CMP 11/29/18 10:45 11/08/18 10:05 - Impressions CT/CT chest w con IMPRESSION: Postoperative changes are noted in the right chest wall. There is a slightly more prominent lymph node lateral to the scapula along the posterior axillary soft tissues now measuring 1.2 x 0.7 cm in greatest dimension. Ultrasound follow-up may be helpful. No acute intra-abdominal or thoracic pathology. Uncomplicated colonic diverticulosis. 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 No evidence of metastatic disease. Degenerative changes are present in the shoulders, hips, right knee, and feet bilaterally. Impression dictated by: Selvin Devine M.D.03/13/2020 12:42 PM LIMITED LEFT BREAST ULTRASOUND CLINICAL DATA: Enlarging left axillary tail lymph node on CT. Previous bilateral mastectomy. COMPARISON: CT March 13, 2020 Real-time ultrasound evaluation at the axillary tail of the mid axillary line was performed. A reniform hypoechoic nodule with echogenic hilus is visualized. It measures 10 x 5 x 7 mm. The appearance is compatible with a lymph node. This correlates with the CT finding. US/US extremity nonvascular IMPRESSION: AXILLARY TAIL LYMPH NODE WITH BENIGN RENIFORM CONFIGURATION CORRELATING WITH THECT FINDING. FOLLOW-UP 6 MONTH ULTRASOUND COULD BE OBTAINED TO ASSESS STABILITY. Impression dictated by: Milagros Bellamy M.D.03/27/2020 12:41 PM NM/NM bone scan whole body IMPRESSION: No scintigraphic evidence of bony metastatic disease. Impression dictated by: Selvin Devine M.D.03/13/2020 12:45 PM Assessment and Plan (1) Cancer of right breast, stage 2 This is a 50 yo female who discovered a right upper outer quadrant breast mass and underwent bilateral mastectomy 05/07/2018. Final pathology returned as a pT2(4.2cm) pN0 (only 4 lymph nodes excised--possibly less nodes due to prior hydradenitis suppurativa surgery) M0. The tumor is moderately differentiated estrogen receptor positive (0%), progesterone negative (0%), Her2 negative neoplasm. Menopausal status is somewhat unclear with IUD in place--this was removed since start of chemo. Patient does not have a history of tubal ligation. She remained on Lupron injections only during chemotherapy and we decided against further Lupron as this is not indicated for fertility preservation. Lupron was stopped early November 2018 with last chemotherapy. She has not resumed regular menses since end of Lupron therapy. She receives gabapentin for hot flashes with improvement of symptoms. Since tumor was < 5cm, negative lymph nodes, and negative margins, she did not require postmastectomy radiation therapy. I sent the tumor specimen for Oncotype Dx which returned with high risk recurrence score of 47 consistent with 29% recurrence at 10 years with hormonal therapy alone. Baseline Echo showed normalejection fraction, however a 2 cm hepatic cyst of unclear etiology was seen on echo. CT of chest abdomen and pelvis + bone scan due to chest wall pain, cough,an indeterminate liver cyst seen on echo were ordered--all were found to be unremarkable. No metastatic disease on bone scan. ----- ----- Completed 4 cycles dose dense AC, then 12 weekly paclitaxel with last treatment 11/29/2018. She tolerated this very well; only complaint is mild intermittent peripheral numbness and much improved labial swelling/perineal ulcerations due to hidradenitis suppurativa which was initially treated with antibiotics/oral Diflucan 100 mg daily during chemotherapy with significant improvement of symptoms. Prior recurrent dysuria with negative urine cultures but mixed positive skin contaminant growth. I recommended reevaluation by ICHTHYOLOGIST for her dysuria and to determine other potential etiologies of dysuria, but symptoms appear improved after a trial of Pyridium 100 mg 3 times daily as needed for remainder of chemotherapy. 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 She has stable mild fatigue. No issues with nausea/vomiting or diarrhea. Laboratories unremarkable. 12/28/2018: She started tamoxifen therapy on 12/24/2018. She is tolerating this well other than daily hot flashes. She had some vaginal spotting but has not had a menstrual period since last visit for Lupron on 12/06/2018. 03/27/2019: Survivorship after follow-up ultrasound for her left axillary nodulenegative for recurrence. Tolerating tamoxifen reasonably well except hot flashes. She is on maximal dose of paclitaxel 40 mg daily which is effective for her depression but not for hot flashes. We titrated dose of gabapentin and reevaluated by phone at 1 month. We deferred follow-up imaging for prior indeterminate hepatic cyst on imaging--no abnormality seen on CT of abdomen pelvis in June 2018. There is no recommendation for routine surveillance forpancreatic cancer given her SARABJIT mutation (discussed with medical genetics--unlikely to benefit from additional cancer screening but may offer a trial at [facility]). 06/20/2019: She noted hospitalization for sepsis at [facility] in early April 2019 and infusion port was removed. Recurrent hidradenitis suppurativa gluteal cleft. We treated her with pHisoHex and nasal Bactroban for staph carriage as well as topical Bactroban to these lesions. 09/12/2019: No issues on physical exam, continue workup by primary physician with PFTs for persistent dyspnea. Gabapentin now stable dose at 300mg tid with stable hot flashes. Continues paroxetine for depression. Next follow-up in 3 months for clinical exam. 12/11/2019: Treated with Valtrex for zoster. Now that she is 1 year from end ofchemotherapy on Tamoxifen without return of menses, will send LH/FSH and estradiol and baseline DEXA scan and contact with results. If menopausal, I will start Anastrozole 1mg daily and reassess at 3 month followup. If hot flashes are improved on anastrozole, we may titrate off gabapentin. Total duration of therapy will be 10 years due to SARABJIT mutation. 03/11/2020: Patient now reports 1 month of cervical and lumbar pain. Also noted fullness over left chest wall which was concerning to her despite prior bilateral mastectomy. Given her new concerns and known history of increased pancreatic cancer risk with SARABJIT mutation now 2 years from bilateral mastectomy for stage II breast cancer, I am sending for CT of cervical spine as well as CT chest abdomen pelvis to evaluate her areas of pain in addition to bone scan to exclude bony metastatic disease. She will be contacted with these results. At this time since her FSH and LH are still in premenopausal range despite low estradiol I will continue tamoxifen 20 mg daily. If the patient does have bony metastatic disease we will likely change her to aromatase inhibitor with CDK 4/6inhibitor and ovarian suppression therapy. The patient will be contacted with these results and if no evidence of metastatic disease her follow-up will be extended to every 4 months or sooner as needed. 07/08/2020: She had improvement of left chest wall pain after workup in Feb 2020,but recently notes increased left chest wall pain worse with deep inspiration. Will send of CT Chest with contrast and contact with results and earlier followup as necessary. Otherwise continue every 4 month f/u for clinical exam. Continue Tamoxifen as directed--will consider change to AI therapy when postmenopausal. Continue gabapentin 300mg tid for hot flashes. She knows to call us sooner with any questions/concerns. This is a moderate complexity visit over 30 minutes for exam and to address chest wall pain/dyspnea. 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 We stopped monthly Lupron therapy at end of chemotherapy as she does not wish to preserve fertility at this point. Since she is free of menses at one year post-chemotherapy, we again sent LH, FSH, and estradiol with baseline DEXA scan as noted above and are working up for potential metastatic disease with imaging. Will potentially change to aromatase inhibitor therapy only if metastatic disease as noted above, otherwise continue tamoxifen due to LH and FSH still in premenopausal ranges. We will reevaluate hormone studies annually. (3) Left-sided chest wall pain Maria M reports increased chest wall pain without radiculopathy over the past month. She is concerned that this could be related to recurrence and concern for pancreatic neoplasm given her PTEN mutation which places her at potential increased risk. Due to concerning symptoms and higher risk Oncotype score (47) for recurrence, I will send a CT of the chest to exclude metastatic disease. I will contact her with results when available and have her return to discuss change of therapy if imaging is consistent with metastatic disease. Otherwise she will follow-up in 4 months if absence of metastatic disease. (4) Vasomotor symptoms due to menopause Gabapentin for postmenopausal hot flashes--if she changes to aromatase inhibitor therapy due to menopause, she wishes to titrate off gabapentin if symptoms improving. (5) Hidradenitis suppurativa In about July 2018, she noted left groin swelling with normal CBC. Patient has known history of hidradenitis suppurativa and known sulfa allergy. We initially treated her for possible MRSA with doxycycline 100 mg twice daily for 1 week and advised to go to emergency department if worsening of swelling or pain. She followed up with her primary physician who prescribed topical antifungal therapy but she had ongoing swelling and drainage of this area without erythema. She had significant improvement with Diflucan 100 mg daily--we continued this for the remainder of chemotherapy, then titrated off. No change in scarring in bilateral axillae or evidence of recurrence in that region. --As noted above she was hospitalized early April 2019 at [facility] for sepsis and infusion port was removed. She was noted to have strep infection and I discussed use of nasal Bactroban x3 days with use of topical Bactroban to skin lesions overlying her gluteal cleft. She should use antibacterial soap such as pHisoHex to prevent recurrent bacterial infection at least 2 or 3 times per week. --She reported some recurrent fullness in her gluteal cleft and now follows with dermatology. Now on suppressive antibiotics. Will reassess at next follow-up in 4 months. (6) Monoallelic mutation of SARABJIT gene Patient was found to have SARABJIT mutation on genetic testing and received appropriate genetic counseling. She has already had bilateral mastectomy but will be speaking with family members regarding recommendations for screening for this breast cancer associated gene. There is also an association with pancreatic cancer and I contacted [facility] to see if there is any recommended surveillance imaging or testing recommended for patients with this mutation. Further surveillance for pancreatic cancer is not recommended based on discussion with medical genetics, however given her new complaint of chest wall pain she will have CT of chest as noted above. (7) Encounter for monitoring tamoxifen therapy Other than hot flashes tolerating well. We discussed risks of thromboembolic disease. We will continue to monitor on therapy for 10-year course--potentially change to aromatase inhibitor if she has menopause documented after 1 year of no menses with suppressed estradiol levels. Her most current estradiol level is suppressed but LH and FSH are still in the premenopausal range and will defer changing therapy unless change in disease status. - Chemo Plan Chemo Plan (Dose, Rate, Freq): Tamoxifen 20 mg daily, change to Anastrozole when menopausal for total 10-year course due to SARABJIT mutation. Number of Cycles: 12 - weekly paclitaxel Goal of Treatment: Curative - Time with Patient Total Time Spent with Patient: 30 min Coordination of Care & Counseling Time: Greater than 50% of time spent with patient was for coordination of care (as documented) and [id number] counseling of patient and/or family. Dictated By: Tanya Washington MD DD/ [id number] Signed By: <Electronically signed by MD Tanya Washington> 07/09/20 0742 [facility] Work Phone: [phone]) 695-565308-12-2020 Progress note Author Tanya Washington [facility] March 11, 2020 2:07pm Note Date/Time March 11, 2020 11 :43am [facility] [place] [id number] Hem/Onc Follow Up Note - OP Signed Patient: Maria M Mckeon MR#: [id number] : 1970 Acct:[id number] Age/Sex: 49 / F Type: REG RCR Copies to: MD Driss Baum~ Subjective Date/Time of Service: Date of Service: 03/11/2020 Time of Service: 11:39 Chief Complaint: Patient is here for routine follow up history of breast cancer on Tamoxifen with dexa scan for review and outside lab work for review. Patient does complain of joint pain. HPI: 03/11/2020: Maria M presents for 3 month followup, now nearly 2 years from diagnosis of [id number] right breast cancer, ER+, [place] neg, Her neg high risk Oncotype 49 s/p upfront bilateral mastectomy, adjuvant dose dense AC Taxol therapy, then tamoxifen. She notes that over the past month she has been havingrecurrent lumbar pain and cervical pain, worse with prolonged standing and walking. Denies any radiculopathy and has not had saddle paresthesias or changein bowel or bladder function. She has a history of vulvar lesions that were attributed to nabothian cysts in the past, however she feels that these are potentially associated with skin cancer and is planning to resume follow-up withDr. Clark of dermatology. The patient was hospitalized once since her last visit in November due to lactic acidosis that was attributed to her metformin therapy. Her primary physician Dr. Christianson has taken her off metformin and she is managing her diabetes with low carbohydrate diet only --She also discussed that she has known PTEN mutation and ask whether she shouldbe evaluated for pancreatic cancer surveillance. Per NCCN guidelines, there is no recommended pancreatic cancer surveillance for this mutation, however given her recent back pain, she will have CT of cervical spine as well as chest abdomen and pelvis to exclude other bony metastatic disease or pancreas lesion as source of her persistent back pain given her known mutation. I also will send bone scan to correlate with CT scans. She does not have any evidence of recurrence over the chest wall, however this will be evaluated with her CT scan and bone scan for restaging. She denies any cough or dyspnea and has been appropriately isolating during the COVID-19 pandemic. --At last visit we ordered estradiol with LH/FSH to determine if she is postmenopausal. This returned with low estradiol but LH and FSH are still in the premenopausal range. She had a baseline DEXA scan which is within normal limits. I will defer changing her to aromatase inhibitor therapy pending her CTand bone scans above which will be discussed by phone. If she does have bony progression of disease, she would likely be changed to aromatase inhibitor with Cyclin dependent-kinase 4/6 inhibitor and I would give her GnRH agonist to suppress potential menses. Otherwise if no metastatic disease identified I willcontinue her on current tamoxifen dosing. The patient is in agreement with thisplan. 12/11/2019: Maria M is here for 3 month f/u. No skin changes or masses over bilateral mastectomy sites, but last Monday she noted itching/burning of left posterior chest wall consistent with shingles. Currently taking Valtrex twice daily. 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 Has not had return of menses since end of chemotherapy. She agrees to LH/FSH and estradiol to determine if menopausal and will have baseline DEXA scan. If consistent with menopause, we will change Tamoxifen to Anastrozole 1mg daily. Discussed possible myalgias/arthralgias with AI therapy. --she will be contacted with DEXA and hormone test results. If she changes to anastrozole, we will reassess hot flashes and possibly titrate off gabapentin therapy. Next f/u in 3 months or sooner as needed. 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 No recurrent hydradenitis suppurativa lesions. Still has hot flashes, but improved control on gabapentin 300mg tid and would like to continue current dosing. She does not want to escalate dose due to concerns for sedation. 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 --Her chest wall exam reveals no evidence of recurrence of breast cancer. She has no palpable masses, tenderness, and does not have lymphedema of either upperextremity. She has no bowel or bladder complaints and no recent urinary tract infections. She is tolerating tamoxifen therapy well other than hot flashes. She has not had menstrual period since starting Lupron with chemotherapy. She will return for follow-up exam in 3 months. PREVIOUS HISTORY: This is a 49 year old lady who found a large mass in her right upper outer quadrant breast in March. She was immediately referred for mammogram and ultrasound and subsequent US guided needle biopsy 04/20/2018 of clinical 5 cmmass at 10 o'clock--this revealed an invasive mammary carcinoma, grade 2-3, ER 95%, [place] 0%, Her2 negative. She did not see medical oncology or discuss breast conserving therapy or immediate reconstruction with her surgeon. On 05/07/2018, she underwent right modified radical mastectomy with axillary lymph node dissection (no attempt for sentinel lymph node) and left simple mastectomy with axillary dissection. Pathology showed right breast with 4.2cm mass, 4 lymph nodes negative--ER/[place]/Her2 unchanged. No cancer in left breast or 3 lymph nodes. Bone scan and CT scan of the chest, abdomen/pelvis were performed at baseline due to some persistent chest wall pain after mastectomy but she was not found tohave any evidence of metastatic disease. 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 She previously completed 4 cycles of dose dense AC. Cycle 1, day 1: 07/06/2018. 09/07/2018 was cycle 1 day 1 of weekly paclitaxel 80 mg/m? IV for 12 weeks (last dose 11/30/2018). She stopped Lupron monthly with chemotherapy after completion of Taxol. This was ordered for ovarian suppression, as the patient had her IUD removed. No breakthrough bleeding noted. No fever/chills, chest pain, cough, SOB, abdominal pain, diarrhea/constipation, skin rash or lower extremity edema. She has tolerated all cycles of AC reasonably well with no significant nausea. She noted dysuria during AC cycle 3 and subsequent urinalysis showed 4 + leukocyte esterase and 20-49 Urine WBC's. Subsequent culture was negative, but patient was started on prophylactic antibiotics due to immunosuppression. --Patient has had multiple episodes of urine frequency and dysuria with urinalyses x3 during the course of chemotherapy which all show mixed positive growth. Symptoms did not respond to antibiotics and I recommended Pyridium for symptomatic management 3 times daily and evaluation by gynecology for her dysuria and possible cath urine specimen. Symptoms of dysuria resolved after completion of Taxol chemotherapy. --She has resolution of prior erythema and mild drainage of the bilateral eyes and had been following with ophthalmology. No changes in vision related to this. --She notes intermittent numbness of fingers and toes that does not interfere with function. We reduced Taxol to 60% dose and she feels that her toe and finger numbness is slowly improving since end of chemotherapy, now mainly in toes only. --At follow-up in early July 2018, she noted swelling over the left labia for3-4 days, associated with mild discomfort but no significant pain or fluctuance. There also had mild skin breakdown in the bilateral inguinal creases. This wasconsistent with recurrence of her hidradenitis suppurativa and she completed antibiotics for this and was maintained on topical antifungal medication. No need for drainage of abscess or imaging as this was nontender and no fluctuance was noted. --At follow-up September 2018, she had persistent swelling and drainage with an ulcerated area over her left labia. This was a fungal complication of her hidradenitis suppurativa and ulcerations are improved but not completely resolved. No surrounding erythema or pain. Due to ongoing swelling and ulceration we decided to continue Diflucan for the remainder of her chemotherapy. Since that time she has had significant improvement of swelling and drainage over the labia and groin area with marked improvement of the prior ulcerated area. Breakdown in the bilateral inguinal creases has now resolved. This will also be followed by ICHTHYOLOGIST. --She has persistent mild fatigue and she received an [id number] for further chemotherapy and lab draws. No erythema, tenderness, or symptoms of infection. Prior crusting over infusion port resolved. 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 This has been associated with moderate penetrance for breast cancer and the patient was recommended for familial counseling for other family members that may need to be tested for this. It also is associated with ataxia and telangiectasia but is not associated with herskin variance for recurrent infection (hidradenitis suppurativa). The patient has had bilateral mastectomy and no other surgical therapy is recommended. --I informed her [facility] based on SARABJIT gene mutation. --11/29/2018: We started adjuvant tamoxifen therapy 20 mg daily for 10 years if she remains premenopausal, but may have transition to aromatase inhibitor if menopause is demonstrated. She has not had any bleeding since starting Lupron with her first cycle, but had prior IUD and we will observe for symptoms of menopause and recurrence of menses after chemotherapy. She will not continue LHRH agonist therapy as she does not wish to have further fertility preservation. 12/17/2018: Patient presented for urgent evaluation due to newly discovered 1 cm nodule in the left axilla. She was performing self exam and noted firm nodule without overlying erythema or tenderness. She was concerned this could be a local recurrence. She has not followed up with her prior surgeon Dr. Anne Marie rubin. She agreed to evaluation with ultrasound and potential biopsy within the next week and will be scheduled this evaluation Monday. 12/27/2018: Patient is here for brief follow-up of pathology from left axillary nodule biopsy. This returned with fibroadipose and lymphoid tissue but no evidence of malignancy. She has no tenderness at site and elects to continue observation with ultrasound and clinical exam, consider referral back to generalsurgery for reexcision if clinical growth of lesion. She started tamoxifen 20 mg daily on 12/24/2018 with hot flashes but no other significant symptoms. She will return for survivorship review of symptoms in 3 months and we will order follow-up left axillary ultrasound prior to that visit. She may return sooner as needed. Prior dysuria has completely resolved. She has had some vaginal spotting but no menstrual cycle since end of chemotherapy. She declines furtherLupron therapy as she is not planning further childbearing. 03/27/2019: Maria M is here for routine follow-up. She has had no interval changes in medical history. Prior axillary nodule was biopsied 12/19/2018 and showed no evidence of local recurrence--only fibroadipose tissue and fat necrosis. She has not had any other abnormalities on self-exam. She continues to have hot flashes and is on Paxil 40 mg daily which treats her depression wellbut has not affected her hot flashes. She agrees to a trial of gabapentin with escalating doses starting at 100 mg nightly the first night, then twice daily for 3 days, then 3 times daily for 1 week, 200 mg 3 times daily for 1 week, [id number] mg 3 times daily for 1 week. We will follow-up with her in 1 month to see if hot flashes are well controlled after gabapentin titration. She may stop dose escalation if she has any side effects or has significant improvement of her hot flashes. She has mild stable dyspnea with exertion from baseline. She notes she is improving her regular activities since completion of prior therapy. No other concerns today. 06/20/2019: Maria M is here for 3-month follow-up. She relates sepsis hospitalization at [facility] and we do not have records for review. Shehad removal of her infusion port and likely had source of infection from recurrent hidradenitis suppurativa of left axilla. This resolved on appropriateantibiotic therapy. Her prior labial wounds have now healed although she has 2 areas in her gluteal cleft which have swollen consistent with her hidradenitis suppurativa. We discussed possible streptococcal and staphylococcal carriage inher nasal membranes due to her recurrent skin infections and are utilizing Bactroban intranasally for 3 days and as needed Bactroban to her new skin lesions. She does not have any fluctuance indicative of active infection, however I encouraged her to use either pHisoHex or Hibiclens at least 2-3 times weekly over her entire skin to prevent recurrent infections. DIAGNOSIS: 1. Right upper outer quadrant [id number] (4.2 cm primary, 4 LN neg), moderately differentiated adenocarcinoma, ER 90%, [place] 0%, Her2 not overexpressed --Sent Oncotype DX on specimen. Reviewed with patient 06/28/2018. Recurrence score returned high risk 47 (correlating to 10 -year recurrence of 29%). Counseled patient for dense dense AC Taxol chemotherapy. --Notes some shortness of breath, intermittent cough and chest wall pain. Had normal baseline echo but 2 cm cyst seen in the liver. Ordering staging bone scan with CT of chest abdomen pelvis due to symptoms prior to chemotherapy. --Completed adjuvant dose dense AC x4, weekly Taxol x12 chemotherapy. No indication for postmastectomy radiation. Tamoxifen day 1 12/24/2018, tolerating well. 2. Bilateral mastectomy with axillary lymph node dissection 05/07/2018 3. History of multiple skin squamous cell carcinoma excisions, most recently 12/2017 4. History of resection of hydradenitis suppuritiva bilateral axillae --during chemotherapy, she had groin and perineal hidradenitis suppuritiva--improved with antibiotics and antifungal therapy, but maintaining oral Diflucan until the end of chemotherapy 5. HTN 6. Hypothyroidism 7. Chronic sinusitis 8. IBS/diverticulosis 9. Recurrent urinary urgency and dysuria. Has had 3 urinalyses since start ofchemo which show gross pyuria but cultures show mixed positive skin contaminants. She received 1 course of antibiotics, but due to persistent symptoms I sent her to nursing home administrator Dr. Gilbert in [place] for evaluation of her urgency/dysuria. Urgency and dysuria has resolved since chemotherapy ended. 10. Pea sized lump left axilla detected on self exam 12/14/2018--referral for US and biopsy 12/19/2018 consistent with fibroadipose and lymphoid tissue but no evidence of malignancy. We have decided to follow with every 3-month ultrasoundand clinical exam, consider excisional biopsy if further growth of lesion. - Summary of Therapies Summary of Therapies: 1. Bilateral mastectomy with axillary lymph node dissection 05/07/2018 2. Oncotype Dx returned with high risk recurrence score and patient was counseled on 06/28/2018 regarding adjuvant chemotherapy with dose dense AC/paclitaxel. Completing staging with CT chest abdomen pelvis and bone scan for postmastectomy chest wall pain, cough, and liver cyst seen on echocardiogram. Baseline cardiac function is normal. 3. Started chemotherapy: 07/06/2018 Dose-dense AC followed by weekly paclitaxel (Category 1) Day 1: Doxorubicin 60mg/m2 IV Day 1: Cyclophosphamide 600mg/m2 IV. Repeat cycle every 14 days for 4 cycles, followed by: Day 1: Paclitaxel 80mg/m2 via 1-hour IV infusion weekly for 12 weeks. (Reduced to 60% dose due to neuropathy)--last dose 11/30/2018 4. Adjuvant hormonal therapy 2 weeks after completion of chemotherapy: she is premenopausal therefore started tamoxifen 20 mg daily 12/24/2018 for 10 years, ortransition to aromatase inhibitor therapy at the time of menopause. Testing hormonal studies 11/2019 and reviewed results as per HPI (change to anastrazole if menopausal). ROS Details: All systems reviewed & no additional complaints except as documented Subjective/ROS - Narrative: ROS Details: All systems reviewed & no additional complaints except as documented Constitutional: fair state of general health, able to conduct usual activities, mild decrease in activity level and exercise tolerance due to new back pain, mild intentional weight loss on diabetic diet, no weight gain Eyes: no double vision, resolution of prior bilateral eye redness/drainage--on eyedrops from roller [place]. No vision change. Ears, nose, mouth, throat: no headaches, no vertigo, no lightheadedness, no nasal congestion, no rhinorrhea, no epistaxis, no gingival bleeding, no sore throat Cardiovascular: no chest pain, no palpitations, no syncope, no dyspnea on exertion, no edema, no heart murmur Respiratory: Mild stable shortness of breath with exertion, no wheezing, no cough, no sputum production, no respiratory infections, no TB exposure, positivefor intermittent chest wall pain and subjective fullness over her mastectomy site. Gastrointestinal: no change in appetite, no dysphagia, no indigestion, no abdominal pain, no nausea, no vomiting, no jaundice, no constipation, no diarrhea, no abnormal stools, no change in bowel habits Genitourinary: Resolved urgency, resolved urinary frequency and dysuria, no hematuria, no oliguria, no stones, no urinary retention. She now notes some recurrent labial swelling and discomfort plans reevaluation by dermatology. Also has known history of-- hidradenitis suppurativa. No inguinal adenopathy. Musculoskeletal: About 1 week history of cervical and lumbar pain as per HPI without radiculopathy--worse with walking and prolonged standing, no swelling, no redness Integumentary: other - multiple healed excisions of skin cancers, no rash, no bleeding or bruising, no itching--left labial swelling has recurred but prior ulceration resolved--no longer noting erythema or skin breakdown in the bilateral inguinal creases after oral Diflucan while on chemotherapy. Recent recurrence of skin lesions in the gluteal cleft as noted above in HPI. Integumentary (breast): incision site - well healed bilateral mastectomy, mild tenderness over bilateral chest wall without palpable masses, no swelling, well-healed right axillary incision. 12/14/2018 noted new left 1cm axillary nodule--evaluation with US and biopsy 12/19/2018 negative for malignancy. Noduleregressed and nontender follow-up 03/27/2019. No lymphedema of either upper extremity. --left posterior chest vesicular rash consistent with herpes zoster at visit 12/11/2019--now resolved. Neurological: no tremor, no incoordination, mild intermittent paresthesias improved in hands, no memory loss Psychiatric: no anxiety, no depression Endocrine: no hormone therapy, positive heat intolerance and flushing on tamoxifen therapy--trial of gabapentin added 03/27/2019, now hot flashes controlled on 300mg tid Hematologic/Lymphatic: no anemia, no enlarged lymph nodes Allergic/Immunologic: no reaction to drugs PMFSH - History Attestation statement: The following information was validated with the patient. Source: Old Records Reviewed - Social History Smoking Status: Never smoker Substance Use Type: None Home Medications & Allergies Allergies Sulfa (Sulfonamide Antibiotics) Allergy (Verified 11/30/18 11:43) Hives Home Medications ondansetron HCl [Zofran] 8 mg PO TID PRN #30 tab 06/28/18 [Rx Confirmed 03/11/20] fluticasone propionate See Rx Instructions .ROUTE .COMPLEX 7 Days #1 unit 08/03/18 [Rx Confirmed 03/11/20] loteprednol etabonate [Lotemax] 1 drp EYE-BOTH QID 10/05/18 [History Confirmed 03/11/20] mupirocin 1 applic TOPICAL BID PRN 30 Days #100 g 06/20/19 [Rx Confirmed 03/11/20] citalopram [Celexa] 20 mg PO DAILY 09/12/19 [History Confirmed 03/11/20] gabapentin 300 mg PO TID 90 Days #270 cap 11/05/19 [Rx Confirmed 03/11/20] amlodipine 10 mg PO DAILY 12/11/19 [History Confirmed 03/11/20] losartan 100 mg PO DAILY 12/11/19 [History Confirmed 03/11/20] nitrofurantoin monohyd/m-cryst [Macrobid] 100 mg PO BID 12/11/19 [History Confirmed 03/11/20] triamterene-hydrochlorothiazid 1 cap PO DAILY 12/11/19 [History Confirmed 03/11/20] tamoxifen 20 mg PO DAILY #90 tab 01/13/20 [Rx Confirmed 03/11/20] thyroid (pork) [Nature-Throid] 65 mg PO BID 03/11/20 [History Confirmed 03/11/20] Objective - Height/Weight Height/Weight: Height 5 ft 2.6 in Weight 99.6 kg BSA for Today's Weight 2.07 - Vital Signs Vital Signs: 03/11/20 11:34 Temperature 98.1 F Pulse Rate [Left Brachial] 90 Respiratory Rate 20 Blood Pressure [Left Arm] 122/89 02 Sat by Pulse Oximetry 97 - Pain Chest Pain Intensity: 4 Generalized Pain Intensity: 4 Groin Pain Intensity: 2 Left Flank Pain Intensity: 3 Bilateral Hip Pain Intensity: 2 Bilateral Knee Pain Intensity: 2 Lower Back Pain Intensity: 5 Abdomen Pain Intensity: 2 - Emotional Needs Assessment Emotional Needs Assessment: Emotional Needs Identified? No Distress Screening Total 0 - ECOG Performance Status ECOG Score: 1 Physical Exam Narrative: CONSTITUTIONAL: The patient is in no acute distress. HEAD / FACE: Normocephalic. EYES: Pupils are equal and reactive to light. Conjunctivae and lids are benign in appearance. Ocular movement intact. EARS: Hearing grossly intact. NOSE / MOUTH / THROAT: Nose, mouth, tongue and oropharynx are benign in appearance. No signs of inflammation. NECK / THYROID: Neck is supple. Thyroid is symmetrical, without thyromegaly, masses or palpable nodules. LYMPHATIC: No palpable cervical, supraclavicular, axillary, or inguinal adenopathy. RESPIRATORY: Normal to inspection. Lungs clear to auscultation and percussion. No wheezing, rales, rhonchi or rubs. Normal effort. CARDIOVASCULAR: Regular rate and rhythm. No murmurs, gallops, or rubs. BREASTS: No chest wall or axillary erythema or tenderness. Well-healed bilateral mastectomies--I do not note suspicious mass over chest wall and patient's area of concern. No supraclavicular or infraclavicular adenopathy. VASCULAR: Carotid, radial, femoral and pedal pulses present bilaterally. No bruits. ABDOMEN: Bowel sounds normoactive. Soft, nontender and non-distended. No hepatosplenomegaly. No masses. GENITOURINARY: No CVA tenderness. No suprapubic fullness or tenderness. No groinadenopathy. No evidence of hernias. INTEGUMENTARY: The skin is remarkable for left posterior chest vesicles in dermatomal distribution consistent with herpes zoster. No active lesions consistent with hidradenitis suppurativa (although general exam was deferred). No other rashes. No suspicious lesions BACK / SPINE: The back is tender over the lumbar vertebrae, but negative straight leg raise. No step-off deformity. MUSCULOSKELETAL: Normal musculature, no joint deformities or abnormalities, normal range of motion for all four extremities. She is able to ambulate independently. EXTREMITIES: No edema, cyanosis or clubbing. No Nidhi sign. NEUROLOGICAL: Alert and oriented. Cranial nerves intact. No gross motor or sensory deficits. PSYCHIATRIC: No anxiety or evidence of depression. Results - Labs Labs: Diagram of Most Recent CBC and CMP 11/29/18 10:45 11/08/18 10:05 - Impressions 01/21/2020 DEXA scan returned normal AP spine T score -0.3, left femoral neck T score +0.9, right femoral neck T score +0.5 Assessment and Plan (1) Cancer of right breast, stage 2 This is a 49 yo female who discovered a right upper outer quadrant breast mass and underwent bilateral mastectomy 05/07/2018. Final pathology returned as a pT2(4.2cm) pN0 (only 4 lymph nodes excised--possibly less nodes due to prior hydradenitis suppurativa surgery) M0. The tumor is moderately differentiated estrogen receptor positive (0%), progesterone negative (0%), Her2 negative neoplasm. Menopausal status is somewhat unclear with IUD in place--this was removed since start of chemo. Patient does not have a history of tubal ligation. She remained on Lupron injections only during chemotherapy and we decided against further Lupron as this is not indicated for fertility preservation. Lupron was stopped early November 2018 with last chemotherapy. She has not resumed regular menses since end of Lupron therapy. She receives gabapentin for hot flashes with improvement of symptoms. Since tumor was < 5cm, negative lymph nodes, and negative margins, she did not require postmastectomy radiation therapy. I sent the tumor specimen for Oncotype Dx which returned with high risk recurrence score of 47 consistent with29% recurrence at 10 years with hormonal therapy alone. Baseline Echo showed normal ejection fraction, however a 2 cm hepatic cyst of unclear etiology was seen on echo. CT of chest abdomen and pelvis + bone scan due to chest wall pain, cough, an indeterminate liver cyst seen on echo were ordered--all were found to be unremarkable. No metastatic disease on bone scan. ----- ------- ----- ----- ------ Completed 4 cycles dose dense AC, then 12 weekly paclitaxel with last treatment 11/29/2018. She tolerated this very well; only complaint is mild intermittent peripheral numbness and much improved labial swelling/perineal ulcerations due to hidradenitis suppurativa which was initially treated with antibiotics/oral Diflucan 100 mg daily during chemotherapy with significant improvement of symptoms. Prior recurrent dysuria with negative urine cultures but mixed positive skin contaminant growth. I recommended reevaluation by ICHTHYOLOGIST for her dysuria and to determine other potential etiologies of dysuria, but symptoms appear improved after a trial of Pyridium 100 mg 3 times daily as needed for remainder of chemotherapy. 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 She has stable mild fatigue. No issues with nausea/vomiting or diarrhea. Laboratories unremarkable. 12/28/2018: She started tamoxifen therapy on 12/24/2018. She is tolerating this well other than daily hot flashes. She had some vaginal spotting but has not hada menstrual period since last visit for Lupron on 12/06/2018. 03/27/2019: Survivorship after follow-up ultrasound for her left axillary nodulenegative for recurrence. Tolerating tamoxifen reasonably well except hot flashes. She is on maximal dose of paclitaxel 40 mg daily which is effective forher depression but not for hot flashes. We titrated dose of gabapentin and reevaluated by phone at 1 month. We deferred follow-up imaging for prior indeterminate hepatic cyst on imaging--no abnormality seen on CT of abdomen pelvis in June 2018. There is no recommendation for routine surveillance forpancreatic cancer given her SARABJIT mutation (discussed with medical genetics--unlikely to benefit from additional cancer screening but may offer a trial at [facility]). 06/20/2019: She noted hospitalization for sepsis at [facility] in early April 2019 and infusion port was removed. Recurrent hidradenitis suppurativa gluteal cleft. We treated her with pHisoHex and nasal Bactroban for staph carriage as well as topical Bactroban to these lesions. 09/12/2019: No issues on physical exam, continue workup by primary physician with PFTs for persistent dyspnea. Gabapentin now stable dose at 300mg tid with stable hot flashes. Continues paroxetine for depression. Next follow-up in 3 months for clinical exam. 12/11/2019: Treated with Valtrex for zoster. Now that she is 1 year from end ofchemotherapy on Tamoxifen without return of menses, will send LH/FSH and estradiol and baseline DEXA scan and contact with results. If menopausal, I will start Anastrozole 1mg daily and reassess at 3 month followup. If hot flashes are improved on anastrozole, we may titrate off gabapentin. Total duration of therapy will be 10 years due to SARABJIT mutation. 03/11/2020: Patient now reports 1 month of cervical and lumbar pain. Also noted fullness over left chest wall which was concerning to her despite prior bilateral mastectomy. Given her new concerns and known history of increased pancreatic cancer risk with SARABJIT mutation now 2 years from bilateral mastectomy for stage II breast cancer, I am sending for CT of cervical spine as well as CT chest abdomen pelvis to evaluate her areas of pain in addition to bone scan to exclude bony metastatic disease. She will be contacted with these results. At this time since her FSH and LH are still in premenopausal range despite low estradiol I will continue tamoxifen 20 mg daily. If the patient does have bony metastatic disease we will likely change her to aromatase inhibitor with CDK 4/6inhibitor and ovarian suppression therapy. The patient will be contacted with these results and if no evidence of metastatic disease her follow-up will be extended to every 4 months or sooner as needed. She knows to call us sooner with any questions/concerns. This is a high complexity visit over 45 minutes to address multiple new symptoms. 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 We stopped monthly Lupron therapy at end of chemotherapy as she does not wish to preserve fertility at this point. Since she is free of menses at one year post-chemotherapy, we again sent LH, FSH, and estradiol with baseline DEXA scan as noted above and are working up for potential metastatic disease with imaging. Will potentially change to aromatase inhibitor therapy only if metastatic disease as noted above, otherwise continue tamoxifen due to LH and FSH still in premenopausal ranges. If we continue tamoxifen we will reevaluate hormone studies annually. (3) Lumbar back pain Carleen reports increased cervical and lumbar pain without radiculopathy over the past month. She is concerned that this could be related to recurrence and also asks about screening for pancreatic neoplasm given her PTEN mutation which places her at potential increased risk. Due to new concerning symptoms and higher risk Oncotype score (47) for recurrence, I will send a CT of the neck, chest abdomen pelvis as well as bone scan to exclude metastatic disease. I will contact her with results when available and have her return to discuss change of therapy if imaging is consistent with metastatic disease. Otherwise she will follow-up in 4 months and we may consider physical therapy for her neck and lumbar pain if absence of metastatic disease. (4) Vasomotor symptoms due to menopause Gabapentin for postmenopausal hot flashes--if she changes to aromatase inhibitor therapy due to menopause, she wishes to titrate off gabapentin if symptoms improving. (5) Hidradenitis suppurativa In about July 2018, she noted left groin swelling with normal CBC. Patient has known history of hidradenitis suppurativa and known sulfa allergy. We initially treated her for possible MRSA with doxycycline 100 mg twice daily for 1 week and advised to go to emergency department if worsening of swelling or pain. She followed up with her primary physician who prescribed topical antifungal therapy but she had ongoing swelling and drainage of this area without erythema. She had significant improvement with Diflucan 100 mg daily--we continued this for the remainder of chemotherapy, then titrated off. No change in scarring in bilateral axillae or evidence of recurrence in that region. --As noted above she was hospitalized early April 2019 at [facility] for sepsis and infusion port was removed. She was noted to have strep infection and I discussed use of nasal Bactroban x3 days with use of topical Bactroban to skin lesions overlying her gluteal cleft. She should use antibacterial soap such as pHisoHex to prevent recurrent bacterial infection at least 2 or 3 times per week. --She does report some recurrent fullness in her gluteal cleft and requests evaluation with dermatology. She has seen Dr. Clark in the past and plans to schedule follow-up with him as she is also had resection of skin neoplasms. Will reassess at next follow-up in 4 months. (6) Monoallelic mutation of SARABJIT gene Patient was found to have SARABJIT mutation on genetic testing and received appropriate genetic counseling. She has already had bilateral mastectomy but will be speaking with family members regarding recommendations for screening for this breast cancer associated gene. There is also an association with pancreatic cancer and I contacted [facility] to see if there is any recommended surveillance imaging or testing recommended for patients with this mutation. Further surveillance for pancreatic cancer is not recommended based on discussion with medical genetics, however given her new complaint of back pain she will have CT of chest abdomen pelvis as this is a concerning symptom that could be associated with pancreas cancer as well as metastatic breast cancer. (7) Encounter for monitoring tamoxifen therapy Other than hot flashes tolerating well. We discussed risks of thromboembolic disease. We will continue to monitor on therapy for 10-year course--potentially change to aromatase inhibitor if she has menopause documented after 1 year of no menses with suppressed estradiol levels. Her most current estradiol level is suppressed but LH and FSH are still in the premenopausal range and will defer changing therapy unless change in disease status. - Chemo Plan Chemo Plan (Dose, Rate, Freq): Tamoxifen 20 mg daily, change to Anastrozole when menopausal for total 10-year course due to SARABJIT mutation. Number of Cycles: 12 - weekly paclitaxel Goal of Treatment: Curative - Time with Patient Total Time Spent with Patient: 45 min Coordination of Care & Counseling Time: Greater than 50% of time spent with patient was for coordination of care (as documented) and [id number] counseling of patient and/or family. Dictated By: Tanya Washington MD DD/ [id number] Signed By: <Electronically signed by MD Tanya Washington> 03/11/20 [address] [facility] Work Phone: [phone] Progress note Author Tanya Washington [facility] December 11, 2019 8:40pm Note Date/Time December 11, 2019 2:14p m [facility] [place] [address] Hem/Onc Follow Up Note - OP Signed Patient: Maria M Mckeon MR#: [id number] : 1970 Acct:[id number] Age/Sex: 49 / F Type: REG RCR Copies to: MD Driss Baum~ Subjective Date/Time of Service: Date of Service: 12/11/2019 Time of Service: 14:13 Chief Complaint: Patient is here for three month follow up history of breast cancer on Tamoxifen, patient continues occasional hot flashes. Patient is currently being treated for UTI and shingles from PCP. HPI: 12/11/2019: Maria M is here for 3 month f/u. No skin changes or masses over bilateral mastectomy sites, but last Monday she noted itching/burning of left posterior chest wall consistent with shingles. Currently taking Valtrex twice daily. 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 Has not had return of menses since end of chemotherapy. She agrees to LH/FSH and estradiol to determine if menopausal and will have baseline DEXA scan. If consistent with menopause, we will change Tamoxifen to Anastrozole 1mg daily. Discussed possible myalgias/arthralgias with AI therapy. --she will be contacted with DEXA and hormone test results. If she changes to anastrozole, we will reassess hot flashes and possibly titrate off gabapentin therapy. Next f/u in 3 months or sooner as needed. 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 No recurrent hydradenitis suppurativa lesions. Still has hot flashes, but improved control on gabapentin 300mg tid and would like to continue current dosing. She does not want to escalate dose due to concerns for sedation. 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 --Her chest wall exam reveals no evidence of recurrence of breast cancer. She has no palpable masses, tenderness, and does not have lymphedema of either upperextremity. She has no bowel or bladder complaints and no recent urinary tract infections. She is tolerating tamoxifen therapy well other than hot flashes. She has not had menstrual period since starting Lupron with chemotherapy. She will return for follow-up exam in 3 months. PREVIOUS HISTORY: This is a 49 year old lady who found a large mass in her right upper outer quadrant breast in March. She was immediately referred for mammogram and ultrasound and subsequent US guided needle biopsy 04/20/2018 of clinical 5 cmmass at 10 o'clock--this revealed an invasive mammary carcinoma, grade 2-3, ER 95%, [place] 0%, Her2 negative. She did not see medical oncology or discuss breast conserving therapy or immediate reconstruction with her surgeon. On 05/07/2018, she underwent right modified radical mastectomy with axillary lymph node dissection (no attempt for sentinel lymph node) and left simple mastectomy with axillary dissection. Pathology showed right breast with 4.2cm mass, 4 lymph nodes negative--ER/[place]/Her2 unchanged. No cancer in left breast or 3 lymph nodes. Bone scan and CT scan of the chest, abdomen/pelvis were performed at baseline due to some persistent chest wall pain after mastectomy but she was not found tohave any evidence of metastatic disease. 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 She previously completed 4 cycles of dose dense AC. Cycle 1, day 1: 07/06/2018. 09/07/2018 was cycle 1 day 1 of weekly paclitaxel 80 mg/m? IV for 12 weeks (last dose 11/30/2018). She stopped Lupron monthly with chemotherapy after completion of Taxol. This was ordered for ovarian suppression, as the patient had her IUD removed. No breakthrough bleeding noted. No fever/chills, chest pain, cough, SOB, abdominal pain, diarrhea/constipation, skin rash or lower extremity edema. She has tolerated all cycles of AC reasonably well with no significant nausea. She noted dysuria during AC cycle 3 and subsequent urinalysis showed 4 + leukocyte esterase and 20-49 Urine WBC's. Subsequent culture was negative, but patient was started on prophylactic antibiotics due to immunosuppression. --Patient has had multiple episodes of urine frequency and dysuria with urinalyses x3 during the course of chemotherapy which all show mixed positive growth. Symptoms did not respond to antibiotics and I recommended Pyridium for symptomatic management 3 times daily and evaluation by gynecology for her dysuria and possible cath urine specimen. Symptoms of dysuria resolved after completion of Taxol chemotherapy. --She has resolution of prior erythema and mild drainage of the bilateral eyes and had been following with ophthalmology. No changes in vision related to this. --She notes intermittent numbness of fingers and toes that does not interfere with function. We reduced Taxol to 60% dose and she feels that her toe and finger numbness is slowly improving since end of chemotherapy, now mainly in toes only. --At follow-up in early July 2018, she noted swelling over the left labia for3-4 days, associated with mild discomfort but no significant pain or fluctuance. There also had mild skin breakdown in the bilateral inguinal creases. This wasconsistent with recurrence of her hidradenitis suppurativa and she completed antibiotics for this and was maintained on topical antifungal medication. No need for drainage of abscess or imaging as this was nontender and no fluctuance was noted. --At follow-up September 2018, she had persistent swelling and drainage with an ulcerated area over her left labia. This was a fungal complication of her hidradenitis suppurativa and ulcerations are improved but not completely resolved. No surrounding erythema or pain. Due to ongoing swelling and ulceration we decided to continue Diflucan for the remainder of her chemotherapy. Since that time she has had significant improvement of swelling and drainage over the labia and groin area with marked improvement of the prior ulcerated area. Breakdown in the bilateral inguinal creases has now resolved. This will also be followed by ICHTHYOLOGIST. --She has persistent mild fatigue and she received an [id number] for further chemotherapy and lab draws. No erythema, tenderness, or symptoms of infection. Prior crusting over infusion port resolved. 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 This has been associated with moderate penetrance for breast cancer and the patient was recommended for familial counseling for other family members that may need to be tested for this. It also is associated with ataxia and telangiectasia but is not associated with herskin variance for recurrent infection (hidradenitis suppurativa). The patient has had bilateral mastectomy and no other surgical therapy is recommended. --I informed her [facility] based on SARABJIT gene mutation. --11/29/2018: We started adjuvant tamoxifen therapy 20 mg daily for 10 years if she remains premenopausal, but may have transition to aromatase inhibitor if menopause is demonstrated. She has not had any bleeding since starting Lupron with her first cycle, but had prior IUD and we will observe for symptoms of menopause and recurrence of menses after chemotherapy. She will not continue LHRH agonist therapy as she does not wish to have further fertility preservation. 12/17/2018: Patient presented for urgent evaluation due to newly discovered 1 cm nodule in the left axilla. She was performing self exam and noted firm nodule without overlying erythema or tenderness. She was concerned this could be a local recurrence. She has not followed up with her prior surgeon Dr. Anne Marie rubin. She agreed to evaluation with ultrasound and potential biopsy within the next week and will be scheduled this evaluation Monday. 12/27/2018: Patient is here for brief follow-up of pathology from left axillary nodule biopsy. This returned with fibroadipose and lymphoid tissue but no evidence of malignancy. She has no tenderness at site and elects to continue observation with ultrasound and clinical exam, consider referral back to generalsurgery for reexcision if clinical growth of lesion. She started tamoxifen 20 mg daily on 12/24/2018 with hot flashes but no other significant symptoms. She will return for survivorship review of symptoms in 3 months and we will order follow-up left axillary ultrasound prior to that visit. She may return sooner as needed. Prior dysuria has completely resolved. She has had some vaginal spotting but no menstrual cycle since end of chemotherapy. She declines furtherLupron therapy as she is not planning further childbearing. 03/27/2019: Maria M is here for routine follow-up. She has had no interval changes in medical history. Prior axillary nodule was biopsied 12/19/2018 and showed no evidence of local recurrence--only fibroadipose tissue and fat necrosis. She has not had any other abnormalities on self-exam. She continues to have hot flashes and is on Paxil 40 mg daily which treats her depression wellbut has not affected her hot flashes. She agrees to a trial of gabapentin with escalating doses starting at 100 mg nightly the first night, then twice daily for 3 days, then 3 times daily for 1 week, 200 mg 3 times daily for 1 week, [id number] mg 3 times daily for 1 week. We will follow-up with her in 1 month to see if hot flashes are well controlled after gabapentin titration. She may stop dose escalation if she has any side effects or has significant improvement of her hot flashes. She has mild stable dyspnea with exertion from baseline. She notes she is improving her regular activities since completion of prior therapy. No other concerns today. 06/20/2019: Maria M is here for 3-month follow-up. She relates sepsis hospitalization at [facility] and we do not have records for review. Shehad removal of her infusion port and likely had source of infection from recurrent hidradenitis suppurativa of left axilla. This resolved on appropriateantibiotic therapy. Her prior labial wounds have now healed although she has 2 areas in her gluteal cleft which have swollen consistent with her hidradenitis suppurativa. We discussed possible streptococcal and staphylococcal carriage inher nasal membranes due to her recurrent skin infections and are utilizing Bactroban intranasally for 3 days and as needed Bactroban to her new skin lesions. She does not have any fluctuance indicative of active infection, however I encouraged her to use either pHisoHex or Hibiclens at least 2-3 times weekly over her entire skin to prevent recurrent infections. - Summary of Therapies Summary of Therapies: 1. Bilateral mastectomy with axillary lymph node dissection 05/07/2018 2. Oncotype Dx returned with high risk recurrence score and patient was counseled on 06/28/2018 regarding adjuvant chemotherapy with dose dense AC/paclitaxel. Completing staging with CT chest abdomen pelvis and bone scan for postmastectomy chest wall pain, cough, and liver cyst seen on echocardiogram. Baseline cardiac function is normal. 3. Started chemotherapy: 07/06/2018 Dose-dense AC followed by weekly paclitaxel (Category 1) Day 1: Doxorubicin 60mg/m2 IV Day 1: Cyclophosphamide 600mg/m2 IV. Repeat cycle every 14 days for 4 cycles, followed by: Day 1: Paclitaxel 80mg/m2 via 1-hour IV infusion weekly for 12 weeks. (Reduced to 60% dose due to neuropathy)--last dose 11/30/2018 4. Adjuvant hormonal therapy 2 weeks after completion of chemotherapy: she is premenopausal therefore started tamoxifen 20 mg daily 12/24/2018 for 10 years, ortransition to aromatase inhibitor therapy at the time of menopause. Testing hormonal studies 11/2019 and will contact with results (change to anastrazole if menopausal). ROS Details: All systems reviewed & no additional complaints except as documented Subjective/ROS - Narrative: ROS Details: All systems reviewed & no additional complaints except as documented Constitutional: fair state of general health, able to conduct usual activities, normal activity level, normal exercise tolerance, no weight loss, no weight gain Eyes: no double vision, resolution of prior bilateral eye redness/drainage--on eyedrops from [place]. No vision change. Ears, nose, mouth, throat: no headaches, no vertigo, no lightheadedness, no nasal congestion, no rhinorrhea, no epistaxis, no gingival bleeding, no sore throat Cardiovascular: no chest pain, no palpitations, no syncope, no dyspnea on exertion, no edema, no heart murmur Respiratory: Mild stable shortness of breath with exertion, no wheezing, no cough, no sputum production, no respiratory infections, no TB exposure, positivefor intermittent chest wall pain over her mastectomy site. Gastrointestinal: no change in appetite, no dysphagia, no indigestion, no abdominal pain, no nausea, no vomiting, no jaundice, no constipation, no diarrhea, no abnormal stools, no change in bowel habits Genitourinary: Resolved urgency, resolved urinary frequency and dysuria, no hematuria, no oliguria, no stones, no urinary retention. Resolution of prior labial swelling and discomfort noted at prior visits due to hidradenitis suppurativa. No inguinal adenopathy. Musculoskeletal: no pain, no swelling, no redness Integumentary: other - multiple healed excisions of skin cancers, no rash, no bleeding or bruising, no itching--left labial swelling and ulceration resolved as noted above and no longer noting erythema or skin breakdown in the bilateral inguinal creases since persistent oral Diflucan while on chemotherapy. Resolvedskin lesions in the gluteal cleft consistent with hidradenitis suppurativa. Integumentary (breast): incision site - well healed bilateral mastectomy, mild tenderness over bilateral chest wall without palpable masses, no swelling, well-healed right axillary incision. 12/14/2018 noted new left 1cm axillary nodule--evaluation with US and biopsy 12/19/2018 negative for malignancy. Noduleregressed and nontender follow-up 03/27/2019. No lymphedema of either upper extremity. --left posterior chest vesicular rash consistent with herpes zoster at visit 12/11/2019. Neurological: no tremor, no incoordination, mild intermittent paresthesias improved in hands, no memory loss Psychiatric: no anxiety, no depression Endocrine: no hormone therapy, positive heat intolerance and flushing on tamoxifen therapy--trial of gabapentin added 03/27/2019, now hot flashes controlled on 300mg tid Hematologic/Lymphatic: no anemia, no enlarged lymph nodes Allergic/Immunologic: no reaction to drugs PMFSH - History Attestation statement: The following information was validated with the patient. Source: Old Records Reviewed - Social History Smoking Status: Never smoker Substance Use Type: None Home Medications & Allergies Allergies Sulfa (Sulfonamide Antibiotics) Allergy (Verified 11/30/18 11:43) Hives Home Medications liothyronine 5 mcg PO BID 01/24/18 [History Confirmed 12/11/19] metformin 750 mg PO DAILY 01/24/18 [History Confirmed 12/11/19] ondansetron HCl [Zofran] 8 mg PO TID PRN #30 tab 06/28/18 [Rx Confirmed 12/11/19] fluticasone propionate See Rx Instructions .ROUTE .COMPLEX 7 Days #1 unit 08/03/18 [Rx Confirmed 12/11/19] loteprednol etabonate [Lotemax] 1 drp EYE-BOTH QID 10/05/18 [History Confirmed 12/11/19] tamoxifen 20 mg PO DAILY #90 tab 12/27/18 [Rx Confirmed 12/11/19] mupirocin 1 applic TOPICAL BID PRN 30 Days #100 g 06/20/19 [Rx Confirmed 12/11/19] citalopram [Celexa] 20 mg PO DAILY 09/12/19 [History Confirmed 12/11/19] levothyroxine 100 mcg PO DAILY 09/12/19 [History Confirmed 12/11/19] gabapentin 300 mg PO TID 90 Days #270 cap 11/05/19 [Rx Confirmed 12/11/19] amlodipine 10 mg PO DAILY 12/11/19 [History Confirmed 12/11/19] losartan 100 mg PO DAILY 12/11/19 [History Confirmed 12/11/19] nitrofurantoin monohyd/m-cryst [Macrobid] 100 mg PO BID 12/11/19 [History Confirmed 12/11/19] triamterene-hydrochlorothiazid 1 cap PO DAILY 12/11/19 [History Confirmed 12/11/19] valacyclovir [Valtrex] 1,000 mg PO TID 12/11/19 [History Confirmed 12/11/19] Objective - Height/Weight Height/Weight: Height 5 ft 2.6 in Weight 100.7 kg BSA for Today's Weight 2.07 - Vital Signs Vital Signs: 12/11/19 14:07 Temperature 96 F L Pulse Rate [Left Brachial] 100 H Respiratory Rate 18 Blood Pressure [Left Arm] 130/74 02 Sat by Pulse Oximetry 97 - Pain Generalized Pain Intensity: 4 Groin Pain Intensity: 2 Left Flank Pain Intensity: 3 Bilateral Hip Pain Intensity: 2 Bilateral Knee Pain Intensity: 2 Chest Pain Intensity: 4 Abdomen Pain Intensity: 2 - Emotional Needs Assessment Emotional Needs Assessment: Emotional Needs Identified? No Distress Screening Total 0 - ECOG Performance Status ECOG Score: 1 Physical Exam Narrative: CONSTITUTIONAL: The patient is in no acute distress. HEAD / FACE: Normocephalic. EYES: Pupils are equal and reactive to light. Conjunctivae and lids are benign in appearance. Ocular movement intact. EARS: Hearing grossly intact. NOSE / MOUTH / THROAT: Nose, mouth, tongue and oropharynx are benign in appearance. No signs of inflammation. NECK / THYROID: Neck is supple. Thyroid is symmetrical, without thyromegaly, masses or palpable nodules. LYMPHATIC: No palpable cervical, supraclavicular, axillary, or inguinal adenopathy. RESPIRATORY: Normal to inspection. Lungs clear to auscultation and percussion. No wheezing, rales, rhonchi or rubs. Normal effort. CARDIOVASCULAR: Regular rate and rhythm. No murmurs, gallops, or rubs. BREASTS: No chest wall or axillary erythema or tenderness. Well-healed bilateral mastectomies. No supraclavicular or infraclavicular adenopathy. VASCULAR: Carotid, radial, femoral and pedal pulses present bilaterally. No bruits. ABDOMEN: Bowel sounds normoactive. Soft, nontender and non-distended. No hepatosplenomegaly. No masses. GENITOURINARY: No CVA tenderness. No suprapubic fullness or tenderness. No groinadenopathy. No evidence of hernias. INTEGUMENTARY: The skin is remarkable for left posterior chest vesicles in dermatomal distribution consistent with herpes zoster. No active lesions consistent with hidradenitis suppurativa. No other rashes. No suspicious lesions BACK / SPINE: The back is nontender. No step-off deformity. MUSCULOSKELETAL: Normal musculature, no joint deformities or abnormalities, normal range of motion for all four extremities. EXTREMITIES: No edema, cyanosis or clubbing. No Nidhi sign. NEUROLOGICAL: Alert and oriented. Cranial nerves intact. No gross motor or sensory deficits. PSYCHIATRIC: No anxiety or evidence of depression. Results - Labs Labs: Diagram of Most Recent CBC and CMP 11/29/18 10:45 11/08/18 10:05 - Impressions No new imaging for review--ordered baseline DEXA scan for possible AI therapy. No further imaging indicated due to bilateral mastectomies. Assessment and Plan (1) Cancer of right breast, stage 2 This is a 49 yo female who discovered a right upper outer quadrant breast mass and underwent bilateral mastectomy 05/07/2018. Final pathology returned as a pT2(4.2cm) pN0 (only 4 lymph nodes excised--possibly less nodes due to prior hydradenitis suppurativa surgery) M0. The tumor is moderately differentiated estrogen receptor positive (0%), progesterone negative (0%), Her2 negative neoplasm. Menopausal status is somewhat unclear with IUD in place--this was removed since start of chemo. Patient does not have a history of tubal ligation. She remained on Lupron injections only during chemotherapy and we decided against further Lupron as this is not indicated for fertility preservation. Lupron was stopped early November 2018 with last chemotherapy. She has not resumed regular menses since end of Lupron therapy. She receives gabapentin for hot flashes with improvement of symptoms. Since tumor was < 5cm, negative lymph nodes, and negative margins, she did not require postmastectomy radiation therapy. I sent the tumor specimen for Oncotype Dx which returned with high risk recurrence score of 47 consistent with29% recurrence at 10 years with hormonal therapy alone. Baseline Echo showed normal ejection fraction, however a 2 cm hepatic cyst of unclear etiology was seen on echo. CT of chest abdomen and pelvis + bone scan due to chest wall pain, cough, an indeterminate liver cyst seen on echo were ordered--all were found to be unremarkable. No metastatic disease on bone scan. ----- ----- ----- Completed 4 cycles dose dense AC, then 12 weekly paclitaxel with last treatment 11/29/2018. She tolerated this very well; only complaint is mild intermittent peripheral numbness and much improved labial swelling/perineal ulcerations due to hidradenitis suppurativa which was initially treated with antibiotics/oral Diflucan 100 mg daily during chemotherapy with significant improvement of symptoms. Prior recurrent dysuria with negative urine cultures but mixed positive skin contaminant growth. I recommended reevaluation by ICHTHYOLOGIST for her dysuria and to determine other potential etiologies of dysuria, but symptoms appear improved after a trial of Pyridium 100 mg 3 times daily as needed for remainder of chemotherapy. 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 She has stable mild fatigue. No issues with nausea/vomiting or diarrhea. Laboratories unremarkable. 12/28/2018: She started tamoxifen therapy on 12/24/2018. She is tolerating this well other than daily hot flashes. She had some vaginal spotting but has not had a menstrual period since last visit for Lupron on 12/06/2018. 03/27/2019: Survivorship after follow-up ultrasound for her left axillary nodulenegative for recurrence. Tolerating tamoxifen reasonably well except hot flashes. She is on maximal dose of paclitaxel 40 mg daily which is effective for her depression but not for hot flashes. We titrated dose of gabapentin and reevaluated by phone at 1 month. We deferred follow-up imaging for prior indeterminate hepatic cyst on imaging--no abnormality seen on CT of abdomen pelvis in June 2018. There is no recommendation for routine surveillance for pancreatic cancer given her SARABJIT mutation (discussed with medical genetics--unlikely to benefit from additional cancer screening but may offer a trial at [facility]). 06/20/2019: She noted hospitalization for sepsis at [facility] in early April 2019 and infusion port was removed. Recurrent hidradenitis suppurativa gluteal cleft. We treated her with pHisoHex and nasal Bactroban for staph carriage as well as topical Bactroban to these lesions. 09/12/2019: No issues on physical exam, continue workup by primary physician with PFTs for persistent dyspnea. Gabapentin now stable dose at 300mg tid with stable hot flashes. Continues paroxetine for depression. Next follow-up in 3 months for clinical exam. 12/11/2019: Treated with Valtrex for zoster. Now that she is 1 year from end ofchemotherapy on Tamoxifen without return of menses, will send LH/FSH and estradiol and baseline DEXA scan and contact with results. If menopausal, I will start Anastrozole 1mg daily and reassess at 3 month followup. If hot flashes are improved on anastrozole, we may titrate off gabapentin. Total duration of therapy will be 10 years due to SARABJIT mutation. She knows to call us sooner with any questions/concerns. This is a moderate complexity visit over 30 minutes. 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 We stopped monthly Lupron therapy as she does not wish to preserve fertility at this point. Since she is free of menses at one year post-chemotherapy, we are sending LH, FSH, and estradiol with baseline DEXA scan and will potentially change to aromatase inhibitor therapy as noted above. (3) Vasomotor symptoms due to menopause Gabapentin for postmenopausal hot flashes--if she changes to aromatase inhibitor therapy due to menopause, she wishes to titrate off gabapentin if symptoms improving. (4) Hidradenitis suppurativa In about July 2018, she noted left groin swelling with normal CBC. Patient has known history of hidradenitis suppurativa and known sulfa allergy. We initially treated her for possible MRSA with doxycycline 100 mg twice daily for 1 week and advised to go to emergency department if worsening of swelling or pain. She followed up with her primary physician who prescribed topical antifungal therapy but she had ongoing swelling and drainage of this area without erythema. She had significant improvement with Diflucan 100 mg daily--we continued this for the remainder of chemotherapy, then titrated off. No change in scarring in bilateral axillae or evidence of recurrence in that region. --As noted above she was hospitalized early April 2019 at [facility] for sepsis and infusion port was removed. She was noted to have strep infection and I discussed use of nasal Bactroban x3 days with use of topical Bactroban to skin lesions overlying her gluteal cleft. She should use antibacterial soap such as pHisoHex to prevent recurrent bacterial infection at least 2 or 3 times per week. Symptoms have not recurred at 6 month f/u visit. Will reassess next follow-up in 3 months. 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 She has already had bilateral mastectomy but will be speaking with family members regarding recommendations for screening for this breast cancer associated gene. There is also an association with pancreatic cancer and I contacted [facility] to see if there is any recommended surveillance imaging or testing recommended for patients with this mutation. Further surveillance for pancreatic cancer is not recommended based on discussion with medical genetics. (6) Encounter for monitoring tamoxifen therapy Other than hot flashes tolerating well. We discussed risks of thromboembolic disease. We will continue to monitor on therapy for 10-year course--likely change to aromatase inhibitor if she has menopause documented after 1 year of no menses with suppressed estradiol levels. - Chemo Plan Chemo Plan (Dose, Rate, Freq): Tamoxifen 20 mg daily, change to Anastrozole when menopausal for total 10-year course due to SARABJIT mutation. Number of Cycles: 12 - weekly paclitaxel Goal of Treatment: Curative - Time with Patient Total Time Spent with Patient: 30 min Coordination of Care & Counseling Time: Greater than 50% of time spent with patient was for coordination of care (as documented) and [id number] counseling of patient and/or family. Dictated By: Tanya Washington MD DD/ [id number] Signed By: <Electronically signed by MD Tanya Washington> 12/11/192039 [facility] Work Phone: [phone] Progress note Author Tanya Washington [facility] September 13, 2019 7:07pm Note Date/Time September 12, 2019 3:51pm [facility] [place] [id number] Hem/Onc Follow Up Note - OP Signed Patient: Maria M Mckeon MR#: [id number] : 1970 Acct:[id number] Age/Sex: 49 / F Type: REG RCR Copies to: MD Albert Garnica MD Philip M Hutchinson~ Subjective Date/Time of Service: Date of Service: 09/12/2019 Time of Service: 15:30 Chief Complaint: Patient is here for routine follow up history of breast cancer currently on Tamoxifen. Patient is having PFT testing done by PCP for shortness of breath. Patient is wondering if she should continue taking gabapentin as her hot flashes have improved. HPI: 09/12/2019: Maria M is being evaluated by her Funeral Home Attendant for PFTs due to persistent dyspnea with exertion, possibly related to prior sepsis hospitalization in fall 2018. No recurrent hydradenitis suppurativa lesions. Still has hot flashes, but improved control on gabapentin 300mg tid and would like to continue current dosing. She does not want to escalate dose due to concerns for sedation. 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 --Her chest wall exam reveals no evidence of recurrence of breast cancer. She has no palpable masses, tenderness, and does not have lymphedema of either upperextremity. She has no bowel or bladder complaints and no recent urinary tract infections. She is tolerating tamoxifen therapy well other than hot flashes. She has not had menstrual period since starting Lupron with chemotherapy. She will return for follow-up exam in 3 months. PREVIOUS HISTORY: This is a 49 year old lady who found a large mass in her right upper outer quadrant breast in March. She was immediately referred for mammogram and ultrasound and subsequent US guided needle biopsy 04/20/2018 of clinical 5 cmmass at 10 o'clock--this revealed an invasive mammary carcinoma, grade 2-3, ER 95%, [place] 0%, Her2 negative. She did not see medical oncology or discuss breast conserving therapy or immediate reconstruction with her surgeon. On 05/07/2018, she underwent right modified radical mastectomy with axillary lymph node dissection (no attempt for sentinel lymph node) and left simple mastectomy with axillary dissection. Pathology showed right breast with 4.2cm mass, 4 lymph nodes negative--ER/[place]/Her2 unchanged. No cancer in left breast or 3 lymph nodes. Bone scan and CT scan of the chest, abdomen/pelvis were performed at baseline due to some persistent chest wall pain after mastectomy but she was not found tohave any evidence of metastatic disease. 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 She previously completed 4 cycles of dose dense AC. Cycle 1, day 1: 07/06/2018. 09/07/2018 was cycle 1 day 1 of weekly paclitaxel 80 mg/m? IV for 12 weeks (last dose 11/30/2018). She stopped Lupron monthly with chemotherapy after completion of Taxol. This was ordered for ovarian suppression, as the patient had her IUD removed. No breakthrough bleeding noted. No fever/chills, chest pain, cough, SOB, abdominal pain, diarrhea/constipation, skin rash or lower extremity edema. She has tolerated all cycles of AC reasonably well with no significant nausea. She noted dysuria during AC cycle 3 and subsequent urinalysis showed 4 + leukocyte esterase and 20-49 Urine WBC's. Subsequent culture was negative, but patient was started on prophylactic antibiotics due to immunosuppression. --Patient has had multiple episodes of urine frequency and dysuria with urinalyses x3 during the course of chemotherapy which all show mixed positive growth. Symptoms did not respond to antibiotics and I recommended Pyridium for symptomatic management 3 times daily and evaluation by gynecology for her dysuria and possible cath urine specimen. Symptoms of dysuria resolved after completion of Taxol chemotherapy. --She has resolution of prior erythema and mild drainage of the bilateral eyes and had been following with ophthalmology. No changes in vision related to this. --She notes intermittent numbness of fingers and toes that does not interfere with function. We reduced Taxol to 60% dose and she feels that her toe and finger numbness is slowly improving since end of chemotherapy, now mainly in toes only. --At follow-up in early July 2018, she noted swelling over the left labia for3-4 days, associated with mild discomfort but no significant pain or fluctuance. There also had mild skin breakdown in the bilateral inguinal creases. This wasconsistent with recurrence of her hidradenitis suppurativa and she completed antibiotics for this and was maintained on topical antifungal medication. No need for drainage of abscess or imaging as this was nontender and no fluctuance was noted. --At follow-up September 2018, she had persistent swelling and drainage with an ulcerated area over her left labia. This was a fungal complication of her hidradenitis suppurativa and ulcerations are improved but not completely resolved. No surrounding erythema or pain. Due to ongoing swelling and ulceration we decided to continue Diflucan for the remainder of her chemotherapy. Since that time she has had significant improvement of swelling and drainage over the labia and groin area with marked improvement of the prior ulcerated area. Breakdown in the bilateral inguinal creases has now resolved. This will also be followed by ICHTHYOLOGIST. --She has persistent mild fatigue and she received an [id number] for further chemotherapy and lab draws. No erythema, tenderness, or symptoms of infection. Prior crusting over infusion port resolved. 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 This has been associated with moderate penetrance for breast cancer and the patient was recommended for familial counseling for other family members that may need to be tested for this. It also is associated with ataxia and telangiectasia but is not associated with herskin variance for recurrent infection (hidradenitis suppurativa). The patient has had bilateral mastectomy and no other surgical therapy is recommended. --I informed her [facility] based on SARABJIT gene mutation. --11/29/2018: We started adjuvant tamoxifen therapy 20 mg daily for 10 years if she remains premenopausal, but may have transition to aromatase inhibitor if menopause is demonstrated. She has not had any bleeding since starting Lupron with her first cycle, but had prior IUD and we will observe for symptoms of menopause and recurrence of menses after chemotherapy. She will not continue LHRH agonist therapy as she does not wish to have further fertility preservation. 12/17/2018: Patient presented for urgent evaluation due to newly discovered 1 cm nodule in the left axilla. She was performing self exam and noted firm nodule without overlying erythema or tenderness. She was concerned this could be a local recurrence. She has not followed up with her prior surgeon Dr. Kenney diagnosis. She agreed to evaluation with ultrasound and potential biopsy within the next week and will be scheduled this evaluation Monday. 12/27/2018: Patient is here for brief follow-up of pathology from left axillary nodule biopsy. This returned with fibroadipose and lymphoid tissue but no evidence of malignancy. She has no tenderness at site and elects to continue observation with ultrasound and clinical exam, consider referral back to generalsurgery for reexcision if clinical growth of lesion. She started tamoxifen 20 mg daily on 12/24/2018 with hot flashes but no other significant symptoms. She will return for survivorship review of symptoms in 3 months and we will order follow-up left axillary ultrasound prior to that visit. She may return sooner as needed. Prior dysuria has completely resolved. She has had some vaginal spotting but no menstrual cycle since end of chemotherapy. She declines furtherLupron therapy as she is not planning further childbearing. 03/27/2019: Maria M is here for routine follow-up. She has had no interval changes in medical history. Prior axillary nodule was biopsied 12/19/2018 and showed no evidence of local recurrence--only fibroadipose tissue and fat necrosis. She has not had any other abnormalities on self-exam. She continues to have hot flashes and is on Paxil 40 mg daily which treats her depression wellbut has not affected her hot flashes. She agrees to a trial of gabapentin with escalating doses starting at 100 mg nightly the first night, then twice daily for 3 days, then 3 times daily for 1 week, 200 mg 3 times daily for 1 week, [id number] mg 3 times daily for 1 week. We will follow-up with her in 1 month to see if hot flashes are well controlled after gabapentin titration. She may stop dose escalation if she has any side effects or has significant improvement of her hot flashes. She has mild stable dyspnea with exertion from baseline. She notes she is improving her regular activities since completion of prior therapy. No other concerns today. 06/20/2019: Maria M is here for 3-month follow-up. She relates sepsis hospitalization at [facility] and we do not have records for review. Shehad removal of her infusion port and likely had source of infection from recurrent hidradenitis suppurativa of left axilla. This resolved on appropriate antibiotic therapy. Her prior labial wounds have now healed although she has 2 areas in her gluteal cleft which have swollen consistent with her hidradenitis suppurativa. We discussed possible streptococcal and staphylococcal carriage inher nasal membranes due to her recurrent skin infections and are utilizing Bactroban intranasally for 3 days and as needed Bactroban to her new skin lesions. She does not have any fluctuance indicative of active infection, however I encouraged her to use either pHisoHex or Hibiclens at least 2-3 times weekly over her entire skin to prevent recurrent infections. - Summary of Therapies Summary of Therapies: 1. Bilateral mastectomy with axillary lymph node dissection 05/07/2018 2. Oncotype Dx returned with high risk recurrence score and patient was counseled on 06/28/2018 regarding adjuvant chemotherapy with dose dense AC/paclitaxel. Completing staging with CT chest abdomen pelvis and bone scan for postmastectomy chest wall pain, cough, and liver cyst seen on echocardiogram. Baseline cardiac function is normal. 3. Started chemotherapy: 07/06/2018 Dose-dense AC followed by weekly paclitaxel (Category 1) Day 1: Doxorubicin 60mg/m2 IV Day 1: Cyclophosphamide 600mg/m2 IV. Repeat cycle every 14 days for 4 cycles, followed by: Day 1: Paclitaxel 80mg/m2 via 1-hour IV infusion weekly for 12 weeks. (Reduced to 60% dose due to neuropathy)--last dose 11/30/2018 4. Adjuvant hormonal therapy 2 weeks after completion of chemotherapy: she is premenopausal therefore started tamoxifen 20 mg daily 12/24/2018 for 10 years, ortransition to aromatase inhibitor therapy at the time of menopause. ROS Details: All systems reviewed & no additional complaints except as documented Subjective/ROS - Narrative: ROS Details: All systems reviewed & no additional complaints except as documented Constitutional: fair state of general health, able to conduct usual activities, normal activity level, normal exercise tolerance, no weight loss, no weight gain Eyes: no double vision, resolution of prior bilateral eye redness/drainage--on eyedrops from [place]. No vision change. Ears, nose, mouth, throat: no headaches, no vertigo, no lightheadedness, no nasal congestion, no rhinorrhea, no epistaxis, no gingival bleeding, no sore throat Cardiovascular: no chest pain, no palpitations, no syncope, no dyspnea on exertion, no edema, no heart murmur Respiratory: Mild stable shortness of breath with exertion, no wheezing, no cough, no sputum production, no respiratory infections, no TB exposure, positivefor intermittent chest wall pain over her mastectomy site. Gastrointestinal: no change in appetite, no dysphagia, no indigestion, no abdominal pain, no nausea, no vomiting, no jaundice, no constipation, no diarrhea, no abnormal stools, no change in bowel habits Genitourinary: Resolved urgency, resolved urinary frequency and dysuria, no hematuria, no oliguria, no stones, no urinary retention. Resolution of prior labial swelling and discomfort noted at prior visits due to hidradenitis suppurativa. No inguinal adenopathy. Musculoskeletal: no pain, no swelling, no redness Integumentary: other - multiple healed excisions of skin cancers, no rash, no bleeding or bruising, no itching--left labial swelling and ulceration resolved as noted above and no longer noting erythema or skin breakdown in the bilateral inguinal creases since persistent oral Diflucan while on chemotherapy. Resolvedskin lesions in the gluteal cleft consistent with hidradenitis suppurativa. Integumentary (breast): incision site - well healed bilateral mastectomy, mild tenderness over bilateral chest wall without palpable masses, no swelling, well-healed right axillary incision. 12/14/2018 noted new left 1cm axillary nodule--evaluation with US and biopsy 12/19/2018 negative for malignancy. Nodulehas regressed and nontender follow-up 03/27/2019. No lymphedema of either upper extremity. Neurological: no tremor, no incoordination, mild intermittent paresthesias improved in hands, no memory loss Psychiatric: no anxiety, no depression Endocrine: no hormone therapy, positive heat intolerance and flushing on tamoxifen therapy--trial of gabapentin added 03/27/2019, now hot flashes controlled on 300mg tid Hematologic/Lymphatic: no anemia, no enlarged lymph nodes Allergic/Immunologic: no reaction to drugs PMFSH - History Attestation statement: The following information was validated with the patient. - Social History Smoking Status: Never smoker Substance Use Type: None Home Medications & Allergies Allergies Sulfa (Sulfonamide Antibiotics) Allergy (Verified 11/30/18 11:43) Hives Home Medications liothyronine 5 mcg PO BID 01/24/18 [History Confirmed 09/12/19] lisinopril-hydrochlorothiazide 1 tab PO DAILY 01/24/18 [History Confirmed 09/12/19] metformin 750 mg PO DAILY 01/24/18 [History Confirmed 09/12/19] ondansetron HCl [Zofran] 8 mg PO TID PRN #30 tab 06/28/18 [Rx Confirmed 09/12/19] quetiapine [Seroquel] 12.5 mg PO QHS 06/28/18 [History Confirmed 09/12/19] fluticasone propionate See Rx Instructions .ROUTE .COMPLEX 7 Days #1 unit 08/03/18 [Rx Confirmed 09/12/19] loteprednol etabonate [Lotemax] 1 drp EYE-BOTH QID 10/05/18 [History Confirmed 09/12/19] tamoxifen 20 mg PO DAILY #90 tab 12/27/18 [Rx Confirmed 09/12/19] mupirocin 1 applic TOPICAL BID PRN 30 Days #100 g 06/20/19 [Rx Confirmed 09/12/19] citalopram [Celexa] 20 mg PO DAILY 09/12/19 [History Confirmed 09/12/19] gabapentin 300 mg PO TID 30 Days #90 cap 09/12/19 [Rx] levothyroxine 100 mcg PO DAILY 09/12/19 [History Confirmed 09/12/19] Objective - Height/Weight Height/Weight: Height 5 ft 2.6 in Weight 102 kg BSA for Today's Weight 2.07 - Vital Signs Vital Signs: 09/12/19 15:42 Temperature 98.4 F Pulse Rate [Left Brachial] 97 H Respiratory Rate 20 Blood Pressure [Left Arm] 131/85 02 Sat by Pulse Oximetry 96 - Pain Generalized Pain Intensity: 4 Groin Pain Intensity: 2 Left Flank Pain Intensity: 3 Bilateral Hip Pain Intensity: 2 Bilateral Knee Pain Intensity: 2 Chest Pain Intensity: 4 Abdomen Pain Intensity: 2 - Emotional Needs Assessment Emotional Needs Assessment: Emotional Needs Identified? No Distress Screening Total 0 - ECOG Performance Status ECOG Score: 1 Physical Exam Narrative: CONSTITUTIONAL: The patient is in no acute distress. HEAD / FACE: Normocephalic. EYES: Pupils are equal and reactive to light. Conjunctivae and lids are benign in appearance. Ocular movement intact. EARS: Hearing grossly intact. NOSE / MOUTH / THROAT: Nose, mouth, tongue and oropharynx are benign in appearance. No signs of inflammation. NECK / THYROID: Neck is supple. Thyroid is symmetrical, without thyromegaly, masses or palpable nodules. LYMPHATIC: No palpable cervical, supraclavicular, axillary, or inguinal adenopathy. RESPIRATORY: Normal to inspection. Lungs clear to auscultation and percussion. No wheezing, rales, rhonchi or rubs. Normal effort. CARDIOVASCULAR: Regular rate and rhythm. No murmurs, gallops, or rubs. BREASTS: No chest wall or axillary erythema or tenderness. Well-healed bilateral mastectomies. No supraclavicular or infraclavicular adenopathy. VASCULAR: Carotid, radial, femoral and pedal pulses present bilaterally. No bruits. ABDOMEN: Bowel sounds normoactive. Soft, nontender and non-distended. No hepatosplenomegaly. No masses. GENITOURINARY: No CVA tenderness. No suprapubic fullness or tenderness. No groinadenopathy. No evidence of hernias. INTEGUMENTARY: The skin is remarkable for abdomen and gluteal cleft raised lesions without erythema or fluctuance consistent with hidradenitis suppurativa.No rashes. No suspicious lesions BACK / SPINE: The back is nontender. No step-off deformity. MUSCULOSKELETAL: Normal musculature, no joint deformities or abnormalities, normal range of motion for all four extremities. EXTREMITIES: No edema, cyanosis or clubbing. No Nidhi sign. NEUROLOGICAL: Alert and oriented. Cranial nerves intact. No gross motor or sensory deficits. PSYCHIATRIC: No anxiety or evidence of depression. Results - Labs Labs: Diagram of Most Recent CBC and CMP 11/29/18 10:45 11/08/18 10:05 - Impressions No imaging indicated, s/p bilateral mastectomy. Assessment and Plan (1) Cancer of right breast, stage 2 This is a 49 yo female who discovered a right upper outer quadrant breast mass and underwent bilateral mastectomy 05/07/2018. Final pathology returned as a pT2(4.2cm) pN0 (only 4 lymph nodes excised--possibly less nodes due to prior hydradenitis suppurativa surgery) M0. The tumor is moderately differentiated estrogen receptor positive (0%), progesterone negative (0%), Her2 negative neoplasm. Menopausal status is somewhat unclear with IUD in place--this was removed since start of chemo. Patient does not have a history of tubal ligation. She remained on Lupron injections only during chemotherapy and we decided against further Lupron as this is not indicated for fertility preservation. Lupron was stopped early November 2018 with last chemotherapy. She has not resumed regular menses since end of Lupron therapy. She receives gabapentin for hot flashes with improvement of symptoms. Since tumor was < 5cm, negative lymph nodes, and negative margins, she did not require postmastectomy radiation therapy. I sent the tumor specimen for Oncotype Dx which returned with high risk recurrence score of 47 consistent with29% recurrence at 10 years with hormonal therapy alone. Baseline Echo showed normal ejection fraction, however a 2 cm hepatic cyst of unclear etiology was seen on echo. CT of chest abdomen and pelvis + bone scan due to chest wall pain, cough, an indeterminate liver cyst seen on echo were ordered--all were found to be unremarkable. No metastatic disease on bone scan. ----- ----- Completed 4 cycles dose dense AC, then 12 weekly paclitaxel with last treatment 11/29/2018. She tolerated this very well; only complaint is mild intermittent peripheral numbness and much improved labial swelling/perineal ulcerations due to hidradenitis suppurativa which was initially treated with antibiotics/oral Diflucan 100 mg daily during chemotherapy with significant improvement of symptoms. Prior recurrent dysuria with negative urine cultures but mixed positive skin contaminant growth. I recommended reevaluation by ICHTHYOLOGIST for her dysuria and to determine other potential etiologies of dysuria, but symptoms appear improved after a trial of Pyridium 100 mg 3 times daily as needed for remainder of chemotherapy. 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 She has stable mild fatigue. No issues with nausea/vomiting or diarrhea. Laboratories unremarkable. 12/28/2018: She started tamoxifen therapy about 4 days ago on 12/24/2018. She is tolerating this well other than daily hot flashes for which she does not wish tohave additional medication. She had some vaginal spotting but has not had a menstrual period since last visit for Lupron on 12/06/2018. 03/27/2019: Survivorship after follow-up ultrasound for her left axillary nodulenegative for recurrence. Tolerating tamoxifen reasonably well except hot flashes. She is on maximal dose of paclitaxel 40 mg daily which is effective for her depression but not for hot flashes. We titrated dose of gabapentin as noted in HPI and reevaluated by phone in 1 month. We we will defer follow-up imaging for prior indeterminate hepatic cyst on imaging--no abnormality seen on CT of abdomen pelvis in June 2018. There is no recommendation for routine surveillance for pancreatic cancer given her SARABJIT mutation (discussed with medical genetics--unlikely to benefit from additional cancer screening but may offer a trial at [facility]). 06/20/2019: She noted hospitalization for sepsis at [facility] in early April 2019 and infusion port was removed. Recurrent hidradenitis suppurativa gluteal cleft. We treated her with pHisoHex and nasal Bactroban for staph carriage as well as topical Bactroban to these lesions. 09/12/2019: No issues on physical exam, continue workup by primary physician with PFTs for persistent dyspnea. Gabapentin now stable dose at 300mg tid with stable hot flashes. Continues paroxetine for depression. Next follow-up in 3 months for clinical exam. She knows to call us sooner with any questions/concerns. This is a moderate complexity visit over 30 minutes. 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 We stopped monthly Lupron therapy as she does not wish to preserve fertility at this point. If she is free of menses at one year we may consider checking LH, FSH, and estradiol and potentially change to aromatase inhibitor therapy. (3) Hidradenitis suppurativa In about July 2018, she noted left groin swelling with normal CBC. Patient has known history of hidradenitis suppurativa and known sulfa allergy. We initially treated her for possible MRSA with doxycycline 100 mg twice daily for 1 week and advised to go to emergency department if worsening of swelling or pain. She followed up with her primary physician who prescribed topical antifungal therapy but she had ongoing swelling and drainage of this area without erythema. She had significant improvement with Diflucan 100 mg daily--we continued this for the remainder of chemotherapy, then titrated off. No change in scarring in bilateral axillae or evidence of recurrence in that region. --As noted above she was hospitalized early April 2019 at [facility] for sepsis and infusion port was removed. She was noted to have strep infection and I discussed use of nasal Bactroban x3 days with use of topical Bactroban to skin lesions overlying her gluteal cleft. She should use antibacterial soap such as pHisoHex to prevent recurrent bacterial infection at least 2 or 3 times per week. Symptoms seem to be improving at 3 month f/u today. Will reassess next follow-up in 3 months. 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 She has already had bilateral mastectomy but will be speaking with family members regarding recommendations for screening for this breast cancer associated gene. There is also an association with pancreatic cancer and I have contacted [facility] to see if there is any recommended surveillance imaging or testing recommended for patients with this mutation. Further surveillance for pancreatic cancer is not recommended based on discussion with medical genetics. (5) Encounter for monitoring tamoxifen therapy Other than hot flashes tolerating well. We discussed risks of thromboembolic disease. We will continue to monitor on therapy for 10-year course or change to aromatase inhibitor if she has menopause documented after 1 year of no menses with suppressed estradiol levels. - Chemo Plan Chemo Plan (Dose, Rate, Freq): Tamoxifen 20 mg daily for 10-year course. Number of Cycles: 12 - weekly paclitaxel Goal of Treatment: Curative - Time with Patient Total Time Spent with Patient: 30 min Coordination of Care & Counseling Time: Greater than 50% of time spent with patient was for coordination of care (as documented) and [id number] counseling of patient and/or family. Dictated By: Tanya Washington MD DD/ [id number] Signed By: <Electronically signed by MD Tanya Washington> 09/13/19 1907 [facility] Work Phone: [phone] 990-720611-22-2019 Progress note Author Tanya Washington [facility] June 21, 2019 5:55pm Note Date/Time June 20, 2019 3:51pm [facility] [place] [address] Hem/Onc Follow Up Note - OP Signed Patient: Maria M Mckeon MR#: [id number] : 1970 Acct:[id number] Age/Sex: 49 / F Type: REG RCR Copies to: Driss Mendoza MD~ Subjective Date/Time of Service: Date of Service: 06/20/2019 Time of Service: 15:50 Chief Complaint: Patient is here for follow up history of breast cancer on tamoxifen. Patient was in [facility] May 05 for sepsis. Patient had port removal. Patient has spot above her coccyx that she would like looked at. Patient complains of shortness of breath at times. HPI: 06/20/2019: Maria M is here for 3-month follow-up. She relates sepsis hospitalization at [facility] and we do not have records for review. Shehad removal of her infusion port and likely had source of infection from recurrent hidradenitis suppurativa of left axilla. This resolved on appropriateantibiotic therapy. Her prior labial wounds have now healed although she has 2 areas in her gluteal cleft which have swollen consistent with her hidradenitis suppurativa. We discussed possible streptococcal and staphylococcal carriage inher nasal membranes due to her recurrent skin infections and are utilizing Bactroban intranasally for 3 days and as needed Bactroban to her new skin lesions. She does not have any fluctuance indicative of active infection, however I encouraged her to use either pHisoHex or Hibiclens at least 2-3 times weekly over her entire skin to prevent recurrent infections. --Her chest wall exam reveals no evidence of recurrence of breast cancer. She has no palpable masses, tenderness, and does not have lymphedema of either upperextremity. She has no bowel or bladder complaints and no recent urinary tract infections. She is tolerating tamoxifen therapy well and continues to have hot flashes. She has not had menstrual period since starting Lupron with chemotherapy. She will return for follow-up exam in 3 months. 03/27/2019: Maria M is here for routine follow-up. She has had no interval changes in medical history. Prior axillary nodule was biopsied 12/19/2018 and showed no evidence of local recurrence--only fibroadipose tissue and fat necrosis. She has not had any other abnormalities on self-exam. She continues to have hot flashes and is on Paxil 40 mg daily which treats her depression wellbut has not affected her hot flashes. She agrees to a trial of gabapentin with escalating doses starting at 100 mg nightly the first night, then twice daily for 3 days, then 3 times daily for 1 week, 200 mg 3 times daily for 1 week, then 300 mg 3 times daily for 1 week. We will follow-up with her in 1 month to see if hot flashes are well controlled after gabapentin titration. She may stop dose escalation if she has any side effects or has significant improvement of her hot flashes. She has mild stable dyspnea with exertion from baseline. She notes she is improving her regular activities since completion of prior therapy. No other concerns today. 12/17/2018: Patient presented for urgent evaluation due to newly discovered 1 cm nodule in the left axilla. She was performing self exam and noted firm nodule without overlying erythema or tenderness. She was concerned this could be a local recurrence. She has not followed up with her prior surgeon Dr. Kenney diagnosis. She is otherwise without new concerns today but is accompaniedby her . She agrees to evaluation with ultrasound and potential biopsy within the next week and will be scheduled this evaluation Monday. 12/27/2018: Patient is here for brief follow-up of pathology from left axillary nodule biopsy. This returned with fibroadipose and lymphoid tissue but no evidence of malignancy. She has no tenderness at site and elects to continue observation with ultrasound and clinical exam, consider referral back to generalsurgery for reexcision if clinical growth of lesion. Otherwise she is without any new complaints from her last visit with me 12/14/2018. She started mg daily on 12/24/2018 with hot flashes but no other significant symptoms. She will return for survivorship review of symptoms in 3 months and we will order follow-up left axillary ultrasound prior to that visit. She may return sooner as needed. Prior dysuria has completely resolved. She has had some vaginal spotting but no menstrual cycle since end of chemotherapy. She declinesfurther Lupron therapy as she is not planning further childbearing. She previously completed 4 cycles of dose dense AC. Cycle 1, day 1: 07/06/2018. 09/07/2018 was cycle 1 day 1 of weekly paclitaxel 80 mg/m? IV for 12 weeks (last dose 11/30/2018). She stopped Lupron monthly with chemotherapy after completion of Taxol. This was ordered for ovarian suppression, as the patient had her IUD removed. No breakthrough bleeding noted. No fever/chills, chest pain, cough, SOB, abdominal pain, diarrhea/constipation, skin rash or lower extremity edema. PREVIOUS HISTORY: This is a 48 year old lady who found a large mass in her right upper outer quadrant breast in March. She was immediately referred for mammogram and ultrasound and subsequent US guided needle biopsy 04/20/2018 of clinical 5 cmmass at 10 o'clock--this revealed an invasive mammary carcinoma, grade 2-3, ER 95%, [place] 0%, Her2 negative. She did not see medical oncology or discuss breast conserving therapy or immediate reconstruction with her surgeon. On 05/07/2018, she underwent right modified radical mastectomy with axillary lymph node dissection (no attempt for sentinel lymph node) and left simple mastectomy with axillary dissection. Pathology showed right breast with 4.2cm mass, 4 lymph nodes negative--ER/[place]/Her2 unchanged. No cancer in left breast or 3 lymph nodes. Bone scan and CT scan of the chest, abdomen/pelvis were performed at baseline due to some persistent chest wall pain after mastectomy but she was not found tohave any evidence of metastatic disease. 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 She has tolerated all cycles of AC reasonably well with no significant nausea. She noted dysuria during AC cycle 3 and subsequent urinalysis showed 4 + leukocyte esterase and 20-49 Urine WBC's. Subsequent culture was negative, but patient was started on prophylactic antibiotics due to immunosuppression. --Patient has had multiple episodes of urine frequency and dysuria with urinalyses x3 during the course of chemotherapy which all show mixed positive growth. Symptoms did not respond to antibiotics and I recommended Pyridium for symptomatic management 3 times daily and evaluation by gynecology for her dysuria and possible cath urine specimen. Symptoms of dysuria resolved after completion of Taxol chemotherapy. --She has resolution of prior erythema and mild drainage of the bilateral eyes and had been following with ophthalmology. No changes in vision related to this. --She notes intermittent numbness of fingers and toes that does not interfere with function. We reduced Taxol to 60% dose and she feels that her toe and finger numbness is slowly improving since end of chemotherapy, now mainly in toes only. --At follow-up in early July 2018, she noted swelling over the left labia for3-4 days, associated with mild discomfort but no significant pain or fluctuance. There also had mild skin breakdown in the bilateral inguinal creases. This wasconsistent with recurrence of her hidradenitis suppurativa and she completed antibiotics for this and was maintained on topical antifungal medication. No need for drainage of abscess or imaging as this was nontender and no fluctuance was noted. --At follow-up September 2018, she had persistent swelling and drainage with an ulcerated area over her left labia. This was a fungal complication of her hidradenitis suppurativa and ulcerations are improved but not completely resolved. No surrounding erythema or pain. Due to ongoing swelling and ulceration we decided to continue Diflucan for the remainder of her chemotherapy. Since that time she has had significant improvement of swelling and drainage over the labia and groin area with marked improvement of the prior ulcerated area. Breakdown in the bilateral inguinal creases has now resolved. This will also be followed by ICHTHYOLOGIST. --She has persistent mild fatigue and she received an [id number] for further chemotherapy and lab draws. No erythema, tenderness, or symptoms of infection. Prior crusting over infusion port resolved. 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 This has been associated with moderate penetrance for breast cancer and the patient was recommended for familial counseling for other family members that may need to be tested for this. It also is associated with ataxia and telangiectasia but is not associated with herskin variance for recurrent infection (hidradenitis suppurativa). The patient has had bilateral mastectomy and no other surgical therapy is recommended. --I informed her [facility] based on SARABJIT gene mutation. --11/29/2018: We started adjuvant tamoxifen therapy 20 mg daily for 10 years if she remains premenopausal, but may have transition to aromatase inhibitor if menopause is demonstrated. She has not had any bleeding since starting Lupron with her first cycle, but had prior IUD and we will observe for symptoms of menopause and recurrence of menses after chemotherapy. She will not continue LHRH agonist therapy as she does not wish to have further fertility preservation. - Summary of Therapies Summary of Therapies: 1. Bilateral mastectomy with axillary lymph node dissection 05/07/2018 2. Oncotype Dx returned with high risk recurrence score and patient was counseled on 06/28/2018 regarding adjuvant chemotherapy with dose dense AC/paclitaxel. Completing staging with CT chest abdomen pelvis and bone scan for postmastectomy chest wall pain, cough, and liver cyst seen on echocardiogram. Baseline cardiac function is normal. 3. Started chemotherapy: 07/06/2018 Dose-dense AC followed by weekly paclitaxel (Category 1) Day 1: Doxorubicin 60mg/m2 IV Day 1: Cyclophosphamide 600mg/m2 IV. Repeat cycle every 14 days for 4 cycles, followed by: Day 1: Paclitaxel 80mg/m2 via 1-hour IV infusion weekly for 12 weeks. (Reduced to 60% dose due to neuropathy)--last dose 11/30/2018 4. Adjuvant hormonal therapy 2 weeks after completion of chemotherapy: she is premenopausal therefore started tamoxifen 20 mg daily 12/24/2018 for 10 years, ortransition to aromatase inhibitor therapy at the time of menopause. ROS Details: All systems reviewed & no additional complaints except as documented Subjective/ROS - Narrative: ROS Details: All systems reviewed & no additional complaints except as documented Constitutional: fair state of general health, able to conduct usual activities, normal activity level, normal exercise tolerance, no weight loss, no weight gain Eyes: no double vision, resolution of prior bilateral eye redness/drainage--on eyedrops from [facility] [place]. No vision change. Ears, nose, mouth, throat: no headaches, no vertigo, no lightheadedness, no nasal congestion, no rhinorrhea, no epistaxis, no gingival bleeding, no sore throat Cardiovascular: no chest pain, no palpitations, no syncope, no dyspnea on exertion, no edema, no heart murmur Respiratory: Mild stable shortness of breath with exertion, no wheezing, no cough, no sputum production, no respiratory infections, no TB exposure, positivefor intermittent chest wall pain over her mastectomy site. Gastrointestinal: no change in appetite, no dysphagia, no indigestion, no abdominal pain, no nausea, no vomiting, no jaundice, no constipation, no diarrhea, no abnormal stools, no change in bowel habits Genitourinary: Resolved urgency, resolved urinary frequency and dysuria, no hematuria, no oliguria, no stones, no urinary retention. Resolution of prior labial swelling and discomfort noted at prior visits due to hidradenitis suppurativa. No inguinal adenopathy. Musculoskeletal: no pain, no swelling, no redness Integumentary: other - multiple healed excisions of skin cancers, no rash, no bleeding or bruising, no itching--left labial swelling and ulceration resolved as noted above and no longer noting erythema or skin breakdown in the bilateral inguinal creases since persistent oral Diflucan while on chemotherapy. She now has heaped up skin lesions without erythema or fluctuance in the gluteal cleft consistent with hidradenitis suppurativa. Integumentary (breast): incision site - well healed bilateral mastectomy, mild tenderness over bilateral chest wall without palpable masses, no swelling, well-healed right axillary incision. 12/14/2018 noted new left 1cm axillary nodule--evaluation with US and biopsy 12/19/2018 negative for malignancy. Nodule hasregressed and nontender follow-up 03/27/2019. No lymphedema of either upper extremity. Neurological: no tremor, no incoordination, mild intermittent paresthesias improved in hands, no memory loss Psychiatric: no anxiety, no depression Endocrine: no hormone therapy, positive heat intolerance and flushing on tamoxifen therapy--trial of gabapentin added 03/27/2019 Hematologic/Lymphatic: no anemia, no enlarged lymph nodes Allergic/Immunologic: no reaction to drugs PMFSH - History Attestation statement: The following information was validated with the patient. - Social History Smoking Status: Never smoker Substance Use Type: None Home Medications & Allergies Allergies Sulfa (Sulfonamide Antibiotics) Allergy (Verified 11/30/18 11:43) Hives Home Medications levothyroxine [Synthroid] 44 mcg PO BID 01/24/18 [History Confirmed 06/20/19] liothyronine 5 mcg PO BID 01/24/18 [History Confirmed 06/20/19] lisinopril-hydrochlorothiazide 1 tab PO DAILY 01/24/18 [History Confirmed 06/20/19] metformin 500 mg PO DAILY 01/24/18 [History Confirmed 06/20/19] paroxetine HCl 40 mg PO DAILY 01/24/18 [History Confirmed 06/20/19] ondansetron HCl [Zofran] 8 mg PO TID PRN #30 tab 06/28/18 [Rx Confirmed 06/20/19] quetiapine [Seroquel] 12.5 mg PO QHS 06/28/18 [History Confirmed 06/20/19] fluticasone propionate See Rx Instructions .ROUTE .COMPLEX 7 Days #1 unit 08/03/18 [Rx Confirmed 06/20/19] loteprednol etabonate [Lotemax] 1 drp EYE-BOTH QID 10/05/18 [History Confirmed 06/20/19] phenazopyridine 100 mg PO TID PRN 30 Days #90 tab 11/09/18 [Rx Confirmed 06/20/19] tamoxifen 20 mg PO DAILY #90 tab 12/27/18 [Rx Confirmed 06/20/19] gabapentin 300 mg PO TID 30 Days #90 cap 05/16/19 [Rx Confirmed 06/20/19] minocycline 100 mg PO DAILY 06/20/19 [History Confirmed 06/20/19] mupirocin 1 applic TOPICAL BID PRN 30 Days #100 g 06/20/19 [Rx] Objective - Height/Weight Height/Weight: Height 5 ft 2.6 in Weight 100.1 kg BSA for Today's Weight 2.07 - Vital Signs Vital Signs: 06/20/19 15:40 Temperature 98.2 F Pulse Rate [Left Brachial] 95 H Respiratory Rate 20 Blood Pressure [Left Arm] 137/83 02 Sat by Pulse Oximetry 97 - Pain Generalized Pain Intensity: 4 Groin Pain Intensity: 2 Left Flank Pain Intensity: 3 Bilateral Hip Pain Intensity: 2 Bilateral Knee Pain Intensity: 2 Chest Pain Intensity: 4 Abdomen Pain Intensity: 2 - Emotional Needs Assessment Emotional Needs Assessment: Emotional Needs Identified? No Distress Screening Total 0 - ECOG Performance Status ECOG Score: 1 Physical Exam Narrative: CONSTITUTIONAL: The patient is in no acute distress. HEAD / FACE: Normocephalic. EYES: Pupils are equal and reactive to light. Conjunctivae and lids are benign in appearance. Ocular movement intact. EARS: Hearing grossly intact. NOSE / MOUTH / THROAT: Nose, mouth, tongue and oropharynx are benign in appearance. No signs of inflammation. NECK / THYROID: Neck is supple. Thyroid is symmetrical, without thyromegaly, masses or palpable nodules. LYMPHATIC: No palpable cervical, supraclavicular, axillary, or inguinal adenopathy. RESPIRATORY: Normal to inspection. Lungs clear to auscultation and percussion. No wheezing, rales, rhonchi or rubs. Normal effort. CARDIOVASCULAR: Regular rate and rhythm. No murmurs, gallops, or rubs. BREASTS: Left axilla remarkable for regressed prior 1 cm firm mobile thickness with no overlying erythema or tenderness. No new findings over her left chest wall with well-healed post mastectomy. No abnormalities of right axilla or chest wall. No supraclavicular or infraclavicular adenopathy. VASCULAR: Carotid, radial, femoral and pedal pulses present bilaterally. No bruits. ABDOMEN: Bowel sounds normoactive. Soft, nontender and non-distended. No hepatosplenomegaly. No masses. GENITOURINARY: No CVA tenderness. No suprapubic fullness or tenderness. No groinadenopathy. No evidence of hernias. INTEGUMENTARY: The skin is remarkable for raised lesions without erythema or fluctuance in the gluteal cleft bilaterally consistent with hidradenitis suppurativa. No rashes. No suspicious lesions BACK / SPINE: The back is nontender. No step-off deformity. MUSCULOSKELETAL: Normal musculature, no joint deformities or abnormalities, normal range of motion for all four extremities. EXTREMITIES: No edema, cyanosis or clubbing. No Nidhi sign. NEUROLOGICAL: Alert and oriented. Cranial nerves intact. No gross motor or sensory deficits. PSYCHIATRIC: No anxiety or evidence of depression. Results - Labs Labs: Diagram of Most Recent CBC and CMP 11/29/18 10:45 11/08/18 10:05 - Impressions No imaging for review since patient had bilateral mastectomy. No DEXA indicatedas she is on tamoxifen. Assessment and Plan (1) Cancer of right breast, stage 2 This is a 49 yo female who discovered a right upper outer quadrant breast mass and underwent bilateral mastectomy 05/07/2018. Final pathology returned as a pT2(4.2cm) pN0 (only 4 lymph nodes excised--possibly less nodes due to prior hydradenitis suppurativa surgery) M0. The tumor is moderately differentiated estrogen receptor positive (0%), progesterone negative (0%), Her2 negative neoplasm. Menopausal status is somewhat unclear with IUD in place--this was removed since start of chemo. Patient does not have a history of tubal ligation. She remained on Lupron injections only during chemotherapy and we decided against further Lupron as this is not indicated for fertility preservation. Lupron was stopped early November 2018 with last chemotherapy. She hasnot resumed regular menses since end of Lupron therapy. She receives gabapentinfor hot flashes with improvement of symptoms. Since tumor was < 5cm, negative lymph nodes, and negative margins, she did not require postmastectomy radiation therapy. I sent the tumor specimen for Oncotype Dx which returned with high risk recurrence score of 47 consistent with29% recurrence at 10 years with hormonal therapy alone. Baseline Echo showed normal ejection fraction, however a 2 cm hepatic cyst of unclear etiology was seen on echo. CT of chest abdomen and pelvis + bone scan due to chest wall pain, cough, an indeterminate liver cyst seen on echo were ordered--all were found to be unremarkable. No metastatic disease on bone scan. ----- ----- Completed 4 cycles dose dense AC, then 12 weekly paclitaxel with last treatment 11/29/2018. She tolerated this very well; only complaint is mild intermittent peripheral numbness and much improved labial swelling/perineal ulcerations due to hidradenitis suppurativa which was initially treated with antibiotics/oral Diflucan 100 mg daily during chemotherapy with significant improvement of symptoms. Prior recurrent dysuria with negative urine cultures but mixed positive skin contaminant growth. I recommended reevaluation by ICHTHYOLOGIST for her dysuria and to determine other potential etiologies of dysuria, but symptoms appear improved after a trial of Pyridium 100 mg 3 times daily as needed for remainder of chemotherapy. 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 She has stable mild fatigue. No issues with nausea/vomiting or diarrhea. Laboratories unremarkable. 12/28/2018: She started tamoxifen therapy about 4 days ago on 12/24/2018. She is tolerating this well other than daily hot flashes for which she does not wish tohave additional medication. She had some vaginal spotting but has not had a menstrual period since last visit for Lupron on 12/06/2018. I will defer her survivorship until 3-month follow-up after she has completed further tamoxifen and follow-up ultrasound for her left axillary nodule noted above. 03/27/2019: Tolerating tamoxifen reasonably well except hot flashes. She is on maximal dose of paclitaxel 40 mg daily which is effective for her depression butnot for hot flashes. We will add titrating dose of gabapentin as noted in HPI and reevaluate by phone in 1 month. She will return for routine 3-month follow-up visit in 3 months, sooner as needed. We we will defer follow-up imaging for prior indeterminate hepatic cyst on imaging--no matter abnormality seen on CT ofabdomen pelvis in June 2018. There is no recommendation for routine surveillance for pancreatic cancer given her SARABJIT mutation (discussed with [employer]--unlikely to benefit from additional cancer screening but may offer a trial at [facility]). 06/20/2019: She noted hospitalization for sepsis at [facility] in early April 2019 and infusion port was removed. She now has recurrent hidradenitis suppurativa now and gluteal cleft. We are treating her with pHisoHex and nasal Bactroban for staph carriage as well as topical Bactroban to these lesions. Next follow-up in 3 months for clinical exam. She knows to call us sooner with any questions/concerns. This is a moderate complexity visit over 30 minutes. 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 We stopped monthly Lupron therapy as she does not wish to preserve fertility at this point. If she is free of menses at one year we may consider checking LH, FSH, and estradiol and potentially change to aromatase inhibitor therapy. (3) Hidradenitis suppurativa In about July 2018, she noted left groin swelling with normal CBC. Patient has known history of hidradenitis suppurativa and known sulfa allergy. We initially treated her for possible MRSA with doxycycline 100 mg twice daily for 1 week and advised to go to emergency department if worsening of swelling or pain. She followed up with her primary physician who prescribed topical antifungal therapy but she had ongoing swelling and drainage of this area without erythema. She had significant improvement with Diflucan 100 mg daily--we continued this for the remainder of chemotherapy, then titrated off. No change in scarring in bilateral axillae or evidence of recurrence in that region. --As noted above she was hospitalized early April 2019 at [facility] for sepsis and infusion port was removed. She was noted to have strep infection and I discussed use of nasal Bactroban x3 days with use of topical Bactroban to skin lesions overlying her gluteal cleft. She should use antibacterial soap such as pHisoHex to prevent recurrent bacterial infection at least 2 or 3 times per week. Will assess next follow-up in 3 months. 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 She has already had bilateral mastectomy but will be speaking with family members regarding recommendations for screening for this breast cancer associated gene. There is also an association with pancreatic cancer and I have contacted [facility] to see if there is any recommended surveillance imaging or testing recommended for patients with this mutation. Further surveillance for pancreatic cancer is not recommended based on discussion with medical genetics. (5) Encounter for monitoring tamoxifen therapy Other than hot flashes tolerating well. We discussed risks of thromboembolic disease. We will continue to monitor on therapy for 10-year course or change to aromatase inhibitor if she has menopause documented after 1 year of no menses with suppressed estradiol levels. - Chemo Plan Chemo Plan (Dose, Rate, Freq): Tamoxifen 20 mg daily for 10-year course. Goal of Treatment: Curative - Time with Patient Total Time Spent with Patient: 30 min Coordination of Care & Counseling Time: Greater than 50% of time spent with patient was for coordination of care (as documented) and [id number] counseling of patient and/or family. Dictated By: Tanya Washington MD DD/ [id number] Signed By: <Electronically signed by MD Tanya Washington> 06/21/19 [id number] [facility] Work Phone: [phone] 921-141608-29-2019 Progress note Author Tanya Washington [facility] March 28, 2019 9:09am Note Date/Time March 27, 2019 3: 57pm [facility] [place] [address] Hem/Onc Follow Up Note - OP Signed Patient: Maria M Mckeon MR#: [id number] : 1970 Acct:[id number] Age/Sex: 48 / F Type: REG RCR Copies to: Driss Mendoza MD~ Subjective Date/Time of Service: Date of Service: 03/27/2019 Time of Service: 15:56 Chief Complaint: Patient is here for two month follow up currently on Tamoxifen with having significant hot flashes. Patient also complains of being short of breath at times with pain above breast insicions. Patient does also have hip andknee joint aches. HPI: 03/27/2019: Maria M is here for routine follow-up. She has had no interval changes in medical history. Prior axillary nodule was biopsied 12/19/2018 and showed no evidence of local recurrence--only fibroadipose tissue and fat necrosis. She has not had any other abnormalities on self-exam. She continues to have hot flashes and is on Paxil 40 mg daily which treats her depression wellbut has not affected her hot flashes. She agrees to a trial of gabapentin with escalating doses starting at 100 mg nightly the first night, then twice daily for 3 days, then 3 times daily for 1 week, 200 mg 3 times daily for 1 week, [id number] mg 3 times daily for 1 week. We will follow-up with her in 1 month to see if hot flashes are well controlled after gabapentin titration. She may stop dose escalation if she has any side effects or has significant improvement of her hot flashes. She has mild stable dyspnea with exertion from baseline. She notes she is improving her regular activities since completion of prior therapy. No other concerns today. 12/17/2018: Patient presented for urgent evaluation due to newly discovered 1 cm nodule in the left axilla. She was performing self exam and noted firm nodule without overlying erythema or tenderness. She was concerned this could be a local recurrence. She has not followed up with her prior surgeon Dr. Kenney diagnosis. She is otherwise without new concerns today but is accompaniedby her . She agrees to evaluation with ultrasound and potential biopsy within the next week and will be scheduled this evaluation Monday. 12/27/2018: Patient is here for brief follow-up of pathology from left axillary nodule biopsy. This returned with fibroadipose and lymphoid tissue but no evidence of malignancy. She has no tenderness at site and elects to continue observation with ultrasound and clinical exam, consider referral back to generalsurgery for reexcision if clinical growth of lesion. Otherwise she is without any new complaints from her last visit with ne 12/14/2018. She started [id number] mg daily on 12/24/2018 with hot flashes but no other significant symptoms. She will return for survivorship review of symptoms in 3 months and we will order follow-up left axillary ultrasound prior to that visit. She may return sooner as needed. Prior dysuria has completely resolved. She has had some vaginal spotting but no menstrual cycle since end of chemotherapy. She declinesfurther Lupron therapy as she is not planning further childbearing. She previously completed 4 cycles of dose dense AC. Cycle 1, day 1: 07/06/2018. 09/07/2018 was cycle 1 day 1 of weekly paclitaxel 80 mg/m? IV for 12 weeks (last dose 11/30/2018). She stopped Lupron monthly with chemotherapy after completion of Taxol. This was ordered for ovarian suppression, as the patient had her IUD removed. No breakthrough bleeding noted. No fever/chills, chest pain, cough, SOB, abdominal pain, diarrhea/constipation, skin rash or lower extremity edema. PREVIOUS HISTORY: This is a 48 year old lady who found a large mass in her right upper outer quadrant breast in March. She was immediately referred for mammogram and ultrasound and subsequent US guided needle biopsy 04/20/2018 of clinical 5 cmmass at 10 o'clock--this revealed an invasive mammary carcinoma, grade 2-3, ER 95%, [place] 0%, Her2 negative. She did not see medical oncology or discuss breast conserving therapy or immediate reconstruction with her surgeon. On 05/07/2018, she underwent right modified radical mastectomy with axillary lymph node dissection (no attempt for sentinel lymph node) and left simple mastectomy with axillary dissection. Pathology showed right breast with 4.2cm mass, 4 lymph nodes negative--ER/[place]/Her2 unchanged. No cancer in left breast or 3 lymph nodes. Bone scan and CT scan of the chest, abdomen/pelvis were performed at baseline due to some persistent chest wall pain after mastectomy but she was not found tohave any evidence of metastatic disease. 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 She has tolerated all cycles of AC reasonably well with no significant nausea. She noted dysuria during AC cycle 3 and subsequent urinalysis showed 4 + leukocyte esterase and 20-49 Urine WBC's. Subsequent culture was negative, but patient was started on prophylactic antibiotics due to immunosuppression. --Patient has had multiple episodes of urine frequency and dysuria with urinalyses x3 during the course of chemotherapy which all show mixed positive growth. Symptoms did not respond to antibiotics and I recommended Pyridium for symptomatic management 3 times daily and evaluation by gynecology for her dysuria and possible cath urine specimen. Symptoms of dysuria resolved after completion of Taxol chemotherapy. --She has resolution of prior erythema and mild drainage of the bilateral eyes and had been following with ophthalmology. No changes in vision related to this. --She notes intermittent numbness of fingers and toes that does not interfere with function. We reduced Taxol to 60% dose and she feels that her toe and finger numbness is slowly improving since end of chemotherapy, now mainly in toes only. --At follow-up in early July 2018, she noted swelling over the left labia for3-4 days, associated with mild discomfort but no significant pain or fluctuance. There also had mild skin breakdown in the bilateral inguinal creases. This wasconsistent with recurrence of her hidradenitis suppurativa and she completed antibiotics for this and was maintained on topical antifungal medication. No need for drainage of abscess or imaging as this was nontender and no fluctuance was noted. --At follow-up September 2018, she had persistent swelling and drainage with an ulcerated area over her left labia. This was a fungal complication of her hidradenitis suppurativa and ulcerations are improved but not completely resolved. No surrounding erythema or pain. Due to ongoing swelling and ulceration we decided to continue Diflucan for the remainder of her chemotherapy. Since that time she has had significant improvement of swelling and drainage over the labia and groin area with marked improvement of the prior ulcerated area. Breakdown in the bilateral inguinal creases has now resolved. This will also be followed by ICHTHYOLOGIST. --She has persistent mild fatigue and she received an [id number] for further chemotherapy and lab draws. No erythema, tenderness, or symptoms of infection. Prior crusting over infusion port resolved. 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 This has been associated with moderate penetrance for breast cancer and the patient was recommended for familial counseling for other family members that may need to be tested for this. It also is associated with ataxia and telangiectasia but is not associated with herskin variance for recurrent infection (hidradenitis suppurativa). The patient has had bilateral mastectomy and no other surgical therapy is recommended. --I informed her that we will discuss pancreas cancer screening with [facility] there is no routine screening recommended based on SARABJIT gene mutation. --11/29/2018: We started adjuvant tamoxifen therapy 20 mg daily for 10 years if she remains premenopausal, but may have transition to aromatase inhibitor if menopause is demonstrated. She has not had any bleeding since starting Lupron with her first cycle, but had prior IUD and we will observe for symptoms of menopause and recurrence of menses after chemotherapy. She will not continue LHRH agonist therapy as she does not wish to have further fertility preservation. - Summary of Therapies Summary of Therapies: 1. Bilateral mastectomy with axillary lymph node dissection 05/07/2018 2. Oncotype Dx returned with high risk recurrence score and patient was counseled on 06/28/2018 regarding adjuvant chemotherapy with dose dense AC/paclitaxel. Completing staging with CT chest abdomen pelvis and bone scan for postmastectomy chest wall pain, cough, and liver cyst seen on echocardiogram. Baseline cardiac function is normal. 3. Started chemotherapy: 07/06/2018 Dose-dense AC followed by weekly paclitaxel (Category 1) Day 1: Doxorubicin 60mg/m2 IV Day 1: Cyclophosphamide 600mg/m2 IV. Repeat cycle every 14 days for 4 cycles, followed by: Day 1: Paclitaxel 80mg/m2 via 1-hour IV infusion weekly for 12 weeks. (Reduced to 60% dose due to neuropathy)--last dose 11/30/2018 4. Adjuvant hormonal therapy 2 weeks after completion of chemotherapy: she is premenopausal therefore started tamoxifen 20 mg daily 12/24/2018 for 10 years, ortransition to aromatase inhibitor therapy at the time of menopause. ROS Details: All systems reviewed & no additional complaints except as documented Subjective/ROS - Narrative: ROS Details: All systems reviewed & no additional complaints except as documented Constitutional: fair state of general health, able to conduct usual activities, normal activity level, normal exercise tolerance, no weight loss, no weight gain Eyes: no double vision, resolution of prior bilateral eye redness/drainage--on eyedrops from [place]. No vision change. Ears, nose, mouth, throat: no headaches, no vertigo, no lightheadedness, no nasal congestion, no rhinorrhea, no epistaxis, no gingival bleeding, no sore throat Cardiovascular: no chest pain, no palpitations, no syncope, no dyspnea on exertion, no edema, no heart murmur Respiratory: Mild stable shortness of breath with exertion, no wheezing, no cough, no sputum production, no respiratory infections, no TB exposure, positivefor intermittent chest wall pain over her mastectomy site. Gastrointestinal: no change in appetite, no dysphagia, no indigestion, no abdominal pain, no nausea, no vomiting, no jaundice, no constipation, no diarrhea, no abnormal stools, no change in bowel habits Genitourinary: Positive urgency, positive for recurrent urinary frequency and dysuria--UA shows pyuria but only mixed skin contaminants, no hematuria, no oliguria, no stones, no urinary retention. Positive left labial swelling and mild discomfort most consistent with hidradenitis suppurativa--improvement of prior superficial ulceration and drainage by her primary physician. No inguinaladenopathy. Musculoskeletal: no pain, no swelling, no redness Integumentary: other - multiple healed excisions of skin cancers, no rash, no bleeding or bruising, no itching--left labial swelling with improvement of priorulceration as noted above and no longer noting erythema or skin breakdown in thebilateral inguinal creases since persistent oral Diflucan while on chemotherapy. Integumentary (breast): incision site - well healed bilateral mastectomy, mild tenderness over bilateral chest wall without palpable masses, no swelling, well-healed right axillary incision. 12/14/2018 noted new left 1cm axillary nodule--evaluation with US and biopsy 12/19/2018 negative for malignancy. Nodulehas regressed and nontender follow-up 03/27/2019. Neurological: no tremor, no incoordination, mild intermittent paresthesias--no interference with function improved since dose reduction but persistent symptomsin hands, no memory loss Psychiatric: no anxiety, no depression Endocrine: no hormone therapy, positive heat intolerance and flushing on tamoxifen therapy--trial of gabapentin added 03/27/2019 Hematologic/Lymphatic: no anemia, no enlarged lymph nodes Allergic/Immunologic: no reaction to drugs PMFSH - History Attestation statement: The following information was validated with the patient. Source: Old Records Reviewed - Social History Smoking Status: Never smoker Substance Use Type: None Home Medications & Allergies Allergies Sulfa (Sulfonamide Antibiotics) Allergy (Verified 11/30/18 11:43) Hives Home Medications levothyroxine [Synthroid] 44 mcg PO BID 01/24/18 [History Confirmed 03/27/19] liothyronine 5 mcg PO BID 01/24/18 [History Confirmed 03/27/19] lisinopril-hydrochlorothiazide 1 tab PO DAILY 01/24/18 [History Confirmed 03/27/19] metformin 500 mg PO DAILY 01/24/18 [History Confirmed 03/27/19] paroxetine HCl 40 mg PO DAILY 01/24/18 [History Confirmed 03/27/19] ondansetron HCl [Zofran] 8 mg PO TID PRN #30 tab 06/28/18 [Rx Confirmed 03/27/19] quetiapine [Seroquel] 12.5 mg PO QHS 06/28/18 [History Confirmed 03/27/19] fluticasone propionate See Rx Instructions .ROUTE .COMPLEX 7 Days #1 unit 08/03/18 [Rx Confirmed 03/27/19] loteprednol etabonate [Lotemax] 1 drp EYE-BOTH QID 10/05/18 [History Confirmed 03/27/19] phenazopyridine 100 mg PO TID PRN 30 Days #90 tab 11/09/18 [Rx Confirmed 03/27/19] tamoxifen 20 mg PO DAILY #90 tab 12/27/18 [Rx Confirmed 03/27/19] gabapentin See Rx Instructions .ROUTE .COMPLEX 30 Days #200 cap 03/27/19 [Rx] Objective - Height/Weight Height/Weight: Height 5 ft 2.6 in Weight 97.069 kg BSA for Today's Weight 2.07 - Vital Signs Vital Signs: 03/27/19 15:48 Temperature 97.6 F Pulse Rate [Left Brachial] 96 H Respiratory Rate 20 Blood Pressure [Left Arm] 141/90 H 02 Sat by Pulse Oximetry 98 - Pain Generalized Pain Intensity: 4 Groin Pain Intensity: 2 Left Flank Pain Intensity: 3 Bilateral Hip Pain Intensity: 2 Bilateral Knee Pain Intensity: 2 Chest Pain Intensity: 4 Abdomen Pain Intensity: 2 - Emotional Needs Assessment Emotional Needs Assessment: Emotional Needs Identified? No Distress Screening Total 0 - ECOG Performance Status ECOG Score: 1 Physical Exam Narrative: CONSTITUTIONAL: The patient is in no acute distress. HEAD / FACE: Normocephalic. EYES: Pupils are equal and reactive to light. Conjunctivae and lids are benign in appearance. Ocular movement intact. EARS: Hearing grossly intact. NOSE / MOUTH / THROAT: Nose, mouth, tongue and oropharynx are benign in appearance. No signs of inflammation. NECK / THYROID: Neck is supple. Thyroid is symmetrical, without thyromegaly, masses or palpable nodules. LYMPHATIC: No palpable cervical, supraclavicular, axillary, or inguinal adenopathy. RESPIRATORY: Normal to inspection. Lungs clear to auscultation and percussion. No wheezing, rales, rhonchi or rubs. Normal effort. CARDIOVASCULAR: Regular rate and rhythm. No murmurs, gallops, or rubs. BREASTS: Left axilla remarkable for now barely palpable/regressed prior 1 cm firm mobile thickness with no overlying erythema or tenderness. No new findingsover her left chest wall with well-healed post mastectomy. No abnormalities of right axilla or chest wall. No supraclavicular or infraclavicular adenopathy. VASCULAR: Carotid, radial, femoral and pedal pulses present bilaterally. No bruits. ABDOMEN: Bowel sounds normoactive. Soft, nontender and non-distended. No hepatosplenomegaly. No masses. GENITOURINARY: No CVA tenderness. No suprapubic fullness or tenderness. No groinadenopathy. No evidence of hernias. INTEGUMENTARY: The skin is unremarkable. No rashes. No suspicious lesions BACK / SPINE: The back is nontender. No step-off deformity. MUSCULOSKELETAL: Normal musculature, no joint deformities or abnormalities, normal range of motion for all four extremities. EXTREMITIES: No edema, cyanosis or clubbing. No Nidhi sign. NEUROLOGICAL: Alert and oriented. Cranial nerves intact. No gross motor or sensory deficits. PSYCHIATRIC: No anxiety or evidence of depression. Results - Labs Labs: Diagram of Most Recent CBC and CMP 11/29/18 10:45 11/08/18 10:05 - Impressions Date of Service: 03/22/19 US/US extremity nonvascular: B breast cancer, biopsy neg L axilla, 3 mo f/u US Copies to: Tanya Washington MD~ US extremity nonvascular 03/22/2019 8:08 AM SIGNS AND SYMPTOMS: B breast cancer, biopsy neg L axilla, 3 mo f/u US RISK FACTORS: Bilateral mastectomies, history of breast cancer PRIOR PROCEDURE: Bilateral mastectomy with left axillary node biopsy performed on 12/19/2018 COMPARISON: Ultrasound 12/19/2018 FINDINGS: There is no evidence of mass, cystic change, architectural distortion, or calcification. Within the left axilla, there are a few poorly defined ovoid areas of hypoechogenicity with central increased echogenicity which may represent benign lymph nodes. However, no significant blood flow is noted within these structures. None of these appear to be pathologically enlarged. US/US extremity nonvascular IMPRESSION: Ill-defined ovoid hypoechoic structures which may represent benign lymph nodes. However, no central color Doppler flow could be demonstrated. Interval resolution of the previous prominence left axillary lymph node. ASSESSMENT: BIRADS-2 Benign RECOMMENDATION: Close clinical observation is recommended. Impression dictated by: Selivn Devine M.D.03/22/2019 8:40 AM Assessment and Plan (1) Cancer of right breast, stage 2 This is a 48 yo female who discovered a right upper outer quadrant breast mass and underwent bilateral mastectomy 05/07/2018. Final pathology returned as a pT2(4.2cm) pN0 (only 4 lymph nodes excised--possibly less nodes due to prior hydradenitis suppuritiva surgery) M0. The tumor is moderately differentiated estrogen receptor positive (0%), progesterone negative (0%), Her2 negative neoplasm. Menopausal status is somewhat unclear with IUD in place--this was removed since start of chemo. Patient does not have a history of tubal ligation. She continues Lupron injections while on chemotherapy and we decided against further Lupron as this is not indicated for fertility preservation. Lupron will stopped early November with last chemotherapy. Since tumor was < 5cm, negative lymph nodes, and negative margins, she did not require postmastectomy radiation therapy. I sent the tumor specimen for Oncotype Dx which returned with high risk recurrence score of 47 consistent with29% recurrence at 10 years with hormonal therapy alone. Baseline Echo showed normal ejection fraction, however a 2 cm hepatic cyst of unclear etiology was seen on echo. CT of chest abdomen and pelvis + bone scan due to chest wall pain, cough, an indeterminate liver cyst seen on echo were ordered--all were found to be unremarkable. No metastatic disease on bone scan. ----- - ----- ----- Completed 4 cycles dose dense AC, then 12 weekly paclitaxel with last treatment 11/29/2018. She tolerated this very well; only complaint is mild intermittent peripheral numbness and much improved labial swelling/perineal ulcerations due to hidradenitis suppurativa which was initially treated with antibiotics/oral Diflucan 100 mg daily during chemotherapy with significant improvement of symptoms. Prior recurrent dysuria with negative urine cultures but mixed positive skin contaminant growth. I recommended reevaluation by ICHTHYOLOGIST for her dysuria and to determine other potential etiologies of dysuria, but symptoms appear improved after a trial of Pyridium 100 mg 3 times daily as needed for remainder of chemotherapy. 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 She has stable mild fatigue. No issues with nausea/vomiting or diarrhea. Laboratories unremarkable. 12/28/2018: She started tamoxifen therapy about 4 days ago on 12/24/2018. She is tolerating this well other than daily hot flashes for which she does not wish tohave additional medication. She had some vaginal spotting but has not had a menstrual period since last visit for Lupron on 12/06/2018. I will defer her survivorship until 3-month follow-up after she has completed further tamoxifen and follow-up ultrasound for her left axillary nodule noted above. 03/27/2019: Tolerating tamoxifen reasonably well except hot flashes. She is on maximal dose of paclitaxel 40 mg daily which is effective for her depression butnot for hot flashes. We will add titrating dose of gabapentin as noted in HPI and reevaluate by phone in 1 month. She will return for routine 3-month follow-up visit in 3 months, sooner as needed. We we will defer follow-up imagingfor prior indeterminate hepatic cyst on imaging--no matter abnormality seen on CT ofabdomen pelvis in June 2018. There is no recommendation for routine surveillance for pancreatic cancer given her SARABJIT mutation (discussed with medical genetics--unlikely to benefit from additional cancer screening but may offer a trial at [facility]). She knows to call us sooner with any questions/concerns. This is a moderate complexity visit over 30 minutes. (2) Mass of left axilla Patient was last seen 12/14/2018 for walk-in visit due to new left axillary nodule measuring about 1 cm detected on self exam. Given her high risk breast cancer and recent completion of chemotherapy, I sent her for ultrasound and biopsy as this is contralateral to her original breast cancer. She was found to not have evidence of malignancy. We reviewed 3-month follow-up ultrasound showing complete regression of this area. We will perform survivorship review at her next 3-month follow-up visit. This is a moderate complexity visit over 30 minutes to discuss tolerance of tamoxifen therapy. (3) Estrogen receptor positive status [ER+] Tamoxifen 20 mg daily with goal of 10 years following chemotherapy as noted above. We stopped monthly Lupron therapy as she does not wish to preserve fertility at this point. (4) Hidradenitis suppurativa In about July 2018, she noted left groin swelling with normal CBC. Patient has known history of hidradenitis suppurativa and known sulfa allergy. We initially treated her for possible MRSA with doxycycline 100 mg twice daily for 1 week and advised to go to emergency department if worsening of swelling or pain. She followed up with her primary physician who prescribed topical antifungal therapy but she had ongoing swelling and drainage of this area without erythema. She had significant improvement with Diflucan 100 mg daily--we continued this for the remainder of chemotherapy, then titrated off. No change in scarring in bilateral axillae or evidence of recurrence in that region. 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 She has already had bilateral mastectomy but will be speaking with family members regarding recommendations for screening for this breast cancer associated gene. There is also an association with pancreatic cancer and I have contacted [facility] to see if there is any recommended surveillance imaging or testing recommended for patients with this mutation. Further surveillance for pancreatic cancer is not recommended based on discussion with medical genetics. (6) Encounter for monitoring tamoxifen therapy Other than hot flashes tolerating well. We discussed risks of thromboembolic disease. We will continue to monitor on therapy for 10-year course or change to aromatase inhibitor if she has menopause documented by 6 months of no menses with suppressed estradiol levels. - Chemo Plan Chemo Plan (Dose, Rate, Freq): Tamoxifen 20 mg daily for planned 10-year course Goal of Treatment: Curative - Time with Patient Total Time Spent with Patient: 30 min Coordination of Care & Counseling Time: Greater than 50% of time spent with patient was for coordination of care (as documented) and [id number] counseling of patient and/or family. Dictated By: Tanya Washington MD DD/ [id number] Signed By: <Electronically signed by MD Tanya Washington> 03/28/19 0909 [facility] Work Phone: [phone] Progress note Author Tanya Washington [facility] December 28, 2018 2:45pm Note Date/Time December 27, 2018 2:54p m [facility] [place] [address] Hem/Onc Follow Up Note - OP Signed Patient: Maria M Mckeon MR#: [id number] : 1970 Acct:[id number] Age/Sex: 48 / F Type: REG RCR Copies to: Driss Mendoza MD~ Subjective Date/Time of Service: Date of Service: 12/27/2018 Time of Service: 14:54 Chief Complaint: Patient is here for follow up to review pathology report. Patient started tamoxifen four days ago and since has noticed some hot flashes and nausea. - Diagnosis DIAGNOSIS: 1. Right upper outer quadrant [id number] (4.2 cm primary, 4 LN neg), moderately differentiated adenocarcinoma, ER 90%, [place] 0%, Her2 not overexpressed --Sent Oncotype DX on specimen. Reviewed with patient 06/28/2018. Recurrence score returned high risk 47 (correlating to 10 -year recurrence of 29%). Counseled patient for dense dense AC Taxol chemotherapy. --Notes some shortness of breath, intermittent cough and chest wall pain. Had normal baseline echo but 2 cm cyst seen in the liver. Ordering staging bone scan with CT of chest abdomen pelvis due to symptoms prior to chemotherapy. --Completed adjuvant dose dense AC x4, weekly Taxol x12 chemotherapy. No indication for postmastectomy radiation. Tamoxifen day 1 12/24/2018, tolerating well. 2. Bilateral mastectomy with axillary lymph node dissection 05/07/2018 3. History of multiple skin squamous cell carcinoma excisions, most recently 12/2017 4. History of resection of hydradenitis suppuritiva bilateral axillae --during chemotherapy, she had groin and perineal hidradenitis suppuritiva--improved with antibiotics and antifungal therapy, but maintaining oral Diflucan until the end of chemotherapy 5. HTN 6. Hypothyroidism 7. Chronic sinusitis 8. IBS/diverticulosis 9. Recurrent urinary urgency and dysuria. Has had 3 urinalyses since start ofchemo which show gross pyuria but cultures show mixed positive skin contaminants. She received 1 course of antibiotics, but due to persistent symptomsI sent her to nursing home administrator Dr. Gilbert in [place] for evaluation of her urgency/dysuria. Urgency and dysuria has resolved since chemotherapy ended. 10. Pea sized lump left axilla detected on self exam 12/14/2018--referral for US and biopsy 12/19/2018 consistent with fibroadipose and lymphoid tissue but no evidence of malignancy. We have decided to follow with every 3-month ultrasoundand clinical exam, consider excisional biopsy if further growth of lesion. HPI: 12/17/2018: Patient presented for urgent evaluation due to newly discovered 1 cm nodule in the left axilla. She was performing self exam and noted firm nodule without overlying erythema or tenderness. She was concerned this could be a local recurrence. She has not followed up with her prior surgeon Dr. Kenney diagnosis. She is otherwise without new concerns today but is accompaniedby her . She agrees to evaluation with ultrasound and potential biopsy within the next week and will be scheduled this evaluation Monday. 12/27/2018: Patient is here for brief follow-up of pathology from left axillary nodule biopsy. This returned with fibroadipose and lymphoid tissue but no evidence of malignancy. She has no tenderness at site and elects to continue observation with ultrasound and clinical exam, consider referral back to generalsurgery for reexcision if clinical growth of lesion. Otherwise she is without any new complaints from her last visit with me 12/14/2018. She started [id number] mg daily on 12/24/2018 with hot flashes but no other significant symptoms. She will return for survivorship review of symptoms in 3 months and we will order follow-up left axillary ultrasound prior to that visit. She may return sooner as needed. Prior dysuria has completely resolved. She has had some vaginal spotting but no menstrual cycle since end of chemotherapy. She declinesfurther Lupron therapy as she is not planning further childbearing. She previously completed 4 cycles of dose dense AC. Cycle 1, day 1: 07/06/2018. 09/07/2018 was cycle 1 day 1 of weekly paclitaxel 80 mg/m? IV for 12 weeks (last dose 11/30/2018). She stopped Lupron monthly with chemotherapy after completion of Taxol. This was ordered for ovarian suppression, as the patient had her IUD removed. No breakthrough bleeding noted. No fever/chills, chest pain, cough, SOB, abdominal pain, diarrhea/constipation, skin rash or lower extremity edema. PREVIOUS HISTORY: This is a 48 year old lady who found a large mass in her right upper outer quadrant breast in March. She was immediately referred for mammogram and ultrasound and subsequent US guided needle biopsy 04/20/2018 of clinical 5 cmmass at 10 o'clock--this revealed an invasive mammary carcinoma, grade 2-3, ER 95%, [place] 0%, Her2 negative. She did not see medical oncology or discuss breast conserving therapy or immediate reconstruction with her surgeon. On 05/07/2018, she underwent right modified radical mastectomy with axillary lymph node dissection (no attempt for sentinel lymph node) and left simple mastectomy with axillary dissection. Pathology showed right breast with 4.2cm mass, 4 lymph nodes negative--ER/[place]/Her2 unchanged. No cancer in left breast or 3 lymph nodes. Bone scan and CT scan of the chest, abdomen/pelvis were performed at baseline due to some persistent chest wall pain after mastectomy but she was not found tohave any evidence of metastatic disease. 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 She has tolerated all cycles of AC reasonably well with no significant nausea. She noted dysuria during AC cycle 3 and subsequent urinalysis showed 4 + leukocyte esterase and 20-49 Urine WBC's. Subsequent culture was negative, but patient was started on prophylactic antibiotics due to immunosuppression. --Patient has had multiple episodes of urine frequency and dysuria with urinalyses x3 during the course of chemotherapy which all show mixed positive growth. Symptoms did not respond to antibiotics and I recommended Pyridium for symptomatic management 3 times daily and evaluation by gynecology for her dysuria and possible cath urine specimen. Symptoms of dysuria resolved after completion of Taxol chemotherapy. --She has resolution of prior erythema and mild drainage of the bilateral eyes and had been following with ophthalmology. No changes in vision related to this. --She notes intermittent numbness of fingers and toes that does not interfere with function. We reduced Taxol to 60% dose and she feels that her toe and finger numbness is slowly improving since end of chemotherapy, now mainly in toes only. --At follow-up in early July 2018, she noted swelling over the left labia for3-4 days, associated with mild discomfort but no significant pain or fluctuance. There also had mild skin breakdown in the bilateral inguinal creases. This wasconsistent with recurrence of her hidradenitis suppurativa and she completed antibiotics for this and was maintained on topical antifungal medication. No need for drainage of abscess or imaging as this was nontender and no fluctuance was noted. --At follow-up September 2018, she had persistent swelling and drainage with an ulcerated area over her left labia. This was a fungal complication of her hidradenitis suppurativa and ulcerations are improved but not completely resolved. No surrounding erythema or pain. Due to ongoing swelling and ulceration we decided to continue Diflucan for the remainder of her chemotherapy. Since that time she has had significant improvement of swelling and drainage over the labia and groin area with marked improvement of the prior ulcerated area. Breakdown in the bilateral inguinal creases has now resolved. This will also be followed by ICHTHYOLOGIST. --She has persistent mild fatigue and she received an [id number] for further chemotherapy and lab draws. No erythema, tenderness, or symptoms of infection. Prior crusting over infusion port resolved. 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 This has been associated with moderate penetrance for breast cancer and the patient was recommended for familial counseling for other family members that may need to be tested for this. It also is associated with ataxia and telangiectasia but is not associated with herskin variance for recurrent infection (hidradenitis suppurativa). The patient has had bilateral mastectomy and no other surgical therapy is recommended. --I informed her [facility] based on SARABJIT gene mutation. --11/29/2018: We started adjuvant tamoxifen therapy 20 mg daily for 10 years if she remains premenopausal, but may have transition to aromatase inhibitor if menopause is demonstrated. She has not had any bleeding since starting Lupron with her first cycle, but had prior IUD and we will observe for symptoms of menopause and recurrence of menses after chemotherapy. She will not continue LHRH agonist therapy as she does not wish to have further fertility preservation. - Summary of Therapies Summary of Therapies: 1. Bilateral mastectomy with axillary lymph node dissection 05/07/2018 2. Oncotype Dx returned with high risk recurrence score and patient was counseled on 06/28/2018 regarding adjuvant chemotherapy with dose dense AC/paclitaxel. Completing staging with CT chest abdomen pelvis and bone scan for postmastectomy chest wall pain, cough, and liver cyst seen on echocardiogram. Baseline cardiac function is normal. 3. Started chemotherapy: 07/06/2018 Dose-dense AC followed by weekly paclitaxel (Category 1) Day 1: Doxorubicin 60mg/m2 IV Day 1: Cyclophosphamide 600mg/m2 IV. Repeat cycle every 14 days for 4 cycles, followed by: Day 1: Paclitaxel 80mg/m2 via 1-hour IV infusion weekly for 12 weeks. (Reduced to 60% dose due to neuropathy)--last dose 11/30/2018 4. Adjuvant hormonal therapy 2 weeks after completion of chemotherapy: she is premenopausal therefore started tamoxifen 20 mg daily 12/24/2018 for 10 years, ortransition to aromatase inhibitor therapy at the time of menopause. Subjective/ROS - Narrative: No change in review of systems from last visit 12/14/2018. ROS Details: All systems reviewed & no additional complaints except as documented Constitutional: fair state of general health, able to conduct usual activities, normal activity level, normal exercise tolerance, no weight loss, no weight gain Eyes: no double vision, resolution of prior bilateral eye redness/drainage--on eyedrops from [facility]. No vision change. Ears, nose, mouth, throat: no headaches, no vertigo, no lightheadedness, no nasal congestion, no rhinorrhea, no epistaxis, no gingival bleeding, no sore throat Cardiovascular: no chest pain, no palpitations, no syncope, no dyspnea on exertion, no edema, no heart murmur Respiratory: Negative for shortness of breath with exertion, no wheezing, no cough, no sputum production, no respiratory infections, no TB exposure, positivefor intermittent chest wall pain over her mastectomy site. Gastrointestinal: no change in appetite, no dysphagia, no indigestion, no abdominal pain, no nausea, no vomiting, no jaundice, no constipation, no diarrhea, no abnormal stools, no change in bowel habits Genitourinary: Positive urgency, positive for recurrent urinary frequency and dysuria--UA shows pyuria but only mixed skin contaminants, no hematuria, no oliguria, no stones, no urinary retention. Positive left labial swelling and mild discomfort most consistent with hidradenitis suppurativa--improvement of prior superficial ulceration and drainage by her primary physician. No inguinaladenopathy. Musculoskeletal: no pain, no swelling, no redness Integumentary: other - multiple healed excisions of skin cancers, no rash, no bleeding or bruising, no itching--left labial swelling with improvement of priorulceration as noted above and no longer noting erythema or skin breakdown in thebilateral inguinal creases since persistent oral Diflucan while on chemotherapy. Integumentary (breast): incision site - well healed bilateral mastectomy, mild tenderness over bilateral chest wall without palpable masses, no swelling--priordisruption of her right axillary incision resolved after topical colloid therapythat she received from wound clinic. 12/14/2018 noted new left 1cm axillary nodule--evaluation with US and biopsy 12/19/2018- for malignancy. Nodule is stable and nontender follow-up 12/27/2018. Neurological: no tremor, no incoordination, mild intermittent paresthesias--no interference with function improved since dose reduction but persistent symptomsin hands, no memory loss Psychiatric: no anxiety, no depression Endocrine: no hormone therapy, no heat intolerance Hematologic/Lymphatic: no anemia, no enlarged lymph nodes Allergic/Immunologic: no reaction to drugs ROS Details: All systems reviewed & no additional complaints except as documented PMFSH - History Attestation statement: The following information was validated with the patient. Source: Old Records Reviewed - Social History Smoking Status: Never smoker Substance Use Type: None Home Medications & Allergies Allergies Allergy/AdvReac Type Severity Reaction Status Date / Time Sulfa (Sulfonamide Allergy Hives Verified 11/30/18 11:43 Antibiotics) Home Medications Medication Instructions Recorded Confirmed Type levothyroxine [Synthroid] 44 mcg PO BID 01/24/18 12/27/18 History liothyronine 5 mcg PO BID 01/24/18 12/27/18 History lisinopril-hydrochlorothiazide 1 tab PO DAILY 01/24/18 12/27/18 History metformin 500 mg PO DAILY 01/24/18 12/27/18 History paroxetine HCl 40 mg PO DAILY 01/24/18 12/27/18 History ondansetron HCl [Zofran] 8 mg PO TID PRN #30 tab 06/28/18 12/27/18 Rx quetiapine [Seroquel] 12.5 mg PO QHS 06/28/18 12/27/18 History fluticasone propionate See Rx Instructions .ROUTE 08/03/18 12/27/18 Rx .COMPLEX 7 Days #1 unit loteprednol etabonate [Lotemax] 1 drp EYE-BOTH QID 10/05/18 12/27/18 History phenazopyridine 100 mg PO TID PRN 30 Days #90 tab 11/09/18 12/27/18 Rx tamoxifen 20 mg PO DAILY #90 tab 12/27/18 Rx Objective - Resuscitation Status Resuscitation Status: Full Code - Height/Weight Height/Weight: Height 5 ft 2.6 in Weight 94.4 kg BSA for Today's Weight 2.07 - Vital Signs Vital Signs: 12/27/18 14:42 Temperature 98.5 F Pulse Rate [Left Brachial] 100 H Respiratory Rate 20 Blood Pressure [Left Arm] 122/86 02 Sat by Pulse Oximetry 98 - Pain Generalized Pain Intensity: 4 Groin Pain Intensity: 2 Left Flank Pain Intensity: 3 Chest Pain Intensity: 4 Abdomen Pain Intensity: 2 - Emotional Needs Assessment Emotional Needs Assessment: Emotional Needs Identified? Yes Distress Screening Total 1 Support System Spouse - ECOG Performance Status ECOG Score: 1 Physical Exam Narrative: Last full physical exam was 11/30/2018, please refer to previous exam. Patient not reexamined today, but here to review review pathology results. 12/14/2018: Limited exam to bilateral axilla and chest wall. Left axilla remarkable for 1 cm firm mobile thickness with no overlying erythema or tenderness. No new findings over her left chest wall with well-healed post mastectomy. No abnormalities of right axilla or chest wall. No supraclavicularor infraclavicular adenopathy. Patient to be referred for left axillary ultrasound and biopsy. Results - Labs Labs: Diagram of Most Recent CBC and CMP 11/29/18 10:45 11/08/18 10:05 - Impressions Date of Service: 12/19/18 US/US breast LT limited: breast cancer, axillary dissection 05/17, new 1cm Copies to: Tanya Washington MD~ ULTRASOUND, LEFT AXILLA : CLINICAL INFORMATION: Status post the bilateral mastectomies with lymph node dissection. Recent development of hard left axillary nodule. COMPARISON: None FINDINGS: Multiple directed ultrasonographic scans of the left axilla were obtained and show a well-circumscribed, heterogeneous hypoechoic lesion with some through transmission measuring 1.8 x 1.2 x 1.4 cm in diameter. No enlarged left axillary lymph nodes are demonstrated. US/US breast LT limited IMPRESSION: A WELL-CIRCUMSCRIBED, HYPOECHOIC LESION AT THE LEFT AXILLA MEASURING 1.8 X 1.2 X1.4 CM, UNDETERMINED ETIOLOGY. POSSIBILITY OF METASTATIC LESION CANNOT BE EXCLUDED. Impression dictated by: Carlos Ho M.D.12/19/2018 2:25 PM --Pathology reviewed at visit 12/27/2018 showing no evidence of malignancy. We will continue surveillance axillary ultrasound every 3 months until documented stability. Assessment and Plan (1) Mass of left axilla Patient was last seen 12/14/2018 for walk-in visit today due to new left axillarynodule measuring about 1 cm detected on self exam. Given her high risk breast cancer and recent completion of chemotherapy, I sent her for ultrasound and biopsy as this is contralateral to her original breast cancer. She is here for one-week follow-up of results and was found to not have evidence of malignancy. We will coordinate 3-month follow-up ultrasound but she may return sooner if significant clinical worsening or pain of this area. We will perform survivorship review at her 3-month follow-up after ultrasound. This is a moderate complexity visit over 30 minutes to review pathology as well as discussed tolerance of tamoxifen therapy. (2) Cancer of right breast, stage 2 This is a 48 yo female who discovered a right upper outer quadrant breast mass and underwent bilateral mastectomy 05/07/2018. Final pathology returned as a pT2(4.2cm) pN0 (only 4 lymph nodes excised--possibly less nodes due to prior hydradenitis suppuritiva surgery) M0. The tumor is moderately differentiated estrogen receptor positive (0%), progesterone negative (0%), Her2 negative neoplasm. Menopausal status is somewhat unclear with IUD in place--this was removed since start of chemo. Patient does not have a history of tubal ligation. She continues Lupron injections while on chemotherapy and we decided against further Lupron as this is not indicated for fertility preservation. Lupron will stopped early November with last chemotherapy. Since tumor was < 5cm, negative lymph nodes, and negative margins, she will not require postmastectomy radiation therapy. I sent the tumor specimen for Oncotype Dx which returned with high risk recurrence score of 47 consistent with29% recurrence at 10 years with hormonal therapy alone. Baseline Echo showed normal ejection fraction, however a 2 cm hepatic cyst of unclear etiology was seen on echo. CT of chest abdomen and pelvis + bone scan due to chest wall pain, cough, an indeterminate liver cyst seen on echo were ordered--all were found to be unremarkable. No metastatic disease on bone scan. ----- ------ ----- Completed 4 cycles dose dense AC, then 12 weekly paclitaxel with last treatment 11/29/2018. She tolerated this very well; only complaint is mild intermittent peripheral numbness and much improved labial swelling/perineal ulcerations due to hidradenitis suppurativa which was initially treated with antibiotics/oral Diflucan 100 mg daily during chemotherapy with significant improvement of symptoms. Prior recurrent dysuria with negative urine cultures but mixed positive skin contaminant growth. I recommended reevaluation by ICHTHYOLOGIST for her dysuria and to determine other potential etiologies of dysuria, but symptoms appear improved after a trial of Pyridium 100 mg 3 times daily as needed for remainder of chemotherapy. 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 She has stable mild fatigue. No issues with nausea/vomiting or diarrhea. Laboratories unremarkable. 11/30/2018: we discussed tamoxifen adjuvant therapy with risks of hot flashes, endometrial cancer, and thromboembolic disease. She will remain on tamoxifen until symptoms and laboratory testing consistent with menopause. Goal tamoxifenalone is 10 years, or transition to 5 further years of aromatase inhibitor therapy. She will begin tamoxifen therapy in approximately 2 weeks so that she does not have overlapping toxicities with chemotherapy. 12/28/2018: She started tamoxifen therapy about 4 days ago on 12/24/2018. She is tolerating this well other than daily hot flashes for which she does not wish tohave additional medication. She had some vaginal spotting but has not had a menstrual period since last visit for Lupron on 12/06/2018. I will defer her survivorship until 3-month follow-up after she has completed further tamoxifen and follow-up ultrasound for her left axillary nodule noted above. We may coordinate follow-up imaging at that time for indeterminate hepatic cyst on prior imaging. There is no recommendation for routine surveillance for pancreatic cancer given her SARABJIT mutation (discussed with medical genetics--unlikely to benefit from additional cancer screening but may offer a trial at [facility]). She knows to call us sooner with any questions/concerns. This is a moderate ow complexity visit over 30 minutes. (3) Estrogen receptor positive status [ER+] Tamoxifen 20 mg daily with goal of 10 years following chemotherapy as noted above. We stopped monthly Lupron therapy as she does not wish to preserve fertility at this point. (4) Hidradenitis suppurativa Four months ago she noted left groin swelling with normal CBC. Patient has known history of hidradenitis suppurativa and known sulfa allergy. We initiallytreated her for possible MRSA with doxycycline 100 mg twice daily for 1 week andadvised to go to emergency department if worsening of swelling or pain. She followed up with her primary physician who prescribed topical antifungal therapybut she had ongoing swelling and drainage of this area without erythema. She had significant improvement with Diflucan 100 mg daily--will continue for the remainder of chemotherapy, then titrate off over the next 2 weeks. I advised evaluation by ICHTHYOLOGIST for persistent dysuria symptoms but these appeared to be improved since Pyridium as needed. No change in scarring in bilateral axillae or evidence of recurrence in that region. 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 She has already had bilateral mastectomy but will be speaking with family members regarding recommendations for screening forthis breast cancer associated gene. There is also an association with pancreatic cancer and I have contacted [facility] to see if there is any recommended surveillance imaging or testing recommended for patients with this mutation. Further surveillance for pancreatic cancer is not recommended based on discussion with medical genetics. 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 She completed all doses and we will evaluate at survivorship visit in 3 months for any functional changes related to paclitaxel. She no longer reports any residual neuropathy in her hands. (7) Encounter for monitoring tamoxifen therapy Other than hot flashes tolerating well. We discussed risks of thromboembolic disease. We will continue to monitor on therapy for 10-year course or change toaromatase inhibitor if she has menopause documented by 6 months of no menses with suppressed estradiol levels. - Chemo Plan Chemo Plan (Dose, Rate, Freq): Tamoxifen 20 mg daily for planned 10-year course Goal of Treatment: Curative - Time with Patient Coordination of Care & Counseling Time: Greater than 50% of time spent with patient was for coordination of care (as documented) and [id number] counseling of patient and/or family. Dictated By: Tanya Washington MD DD/ [id number] Signed By: <Electronically signed by MD Tanya Washington> 12/28/18 [id number] [facility] Work Phone: [phone] Progress note Author Tanya Washington [facility] December 17, 2018 2:58pm Note Date/Time December 17, 2018 10:31 am [place] [address] Hem/Onc Follow Up Note - OP Signed Patient: Maria M Mckeon MR#: [id number] : 1970 Acct:[id number] Age/Sex: 48 / F Type: REG RCR Copies to: Driss Mendoza MD~ Subjective Date/Time of Service: Date of Service: 12/17/2018 Time of Service: 10:31 Chief Complaint: Patient added on for concerns of new left axillary lump that started monday and has grown in size, starting as pea sized on Monday. - Diagnosis DIAGNOSIS: 1. Right upper outer quadrant [id number] (4.2 cm primary, 4 LN neg), moderately differentiated adenocarcinoma, ER 90%, [place] 0%, Her2 not overexpressed --Sent Oncotype DX on specimen. Reviewed with patient 06/28/2018. Recurrence score returned high risk 47 (correlating to 10 -year recurrence of 29%). Counseled patient for dense dense AC Taxol chemotherapy. --Notes some shortness of breath, intermittent cough and chest wall pain. Had normal baseline echo but 2 cm cyst seen in the liver. Ordering staging bone scan with CT of chest abdomen pelvis due to symptoms prior to chemotherapy. 2. Bilateral mastectomy with axillary lymph node dissection 05/07/2018 3. History of multiple skin squamous cell carcinoma excisions, most recently 12/2017 4. History of resection of hydradenitis suppuritiva bilateral axillae --during chemotherapy, she had groin and perineal hidradenitis suppuritiva--improved with antibiotics and antifungal therapy, but maintaining oral Diflucan until the end of chemotherapy 5. HTN 6. Hypothyroidism 7. Chronic sinusitis 8. IBS/diverticulosis 9. Recurrent urinary urgency and dysuria. Has had 3 urinalyses since start ofchemo which show gross pyuria but cultures show mixed positive skin contaminants. She received 1 course of antibiotics, but due to persistent symptoms I sent her to nursing home administrator Dr. Gilbert in [place] for evaluation of her urgency/dysuria. 10. Pea sized lump left axilla detected on self exam 12/14/2018--referral for US and biopsy if indicated. HPI: 12/17/2018: Patient presented for urgent evaluation due to newly discovered 1 cm nodule in the left axilla. She was performing self exam and noted firm nodule without overlying erythema or tenderness. She was concerned this could be a local recurrence. She has not followed up with her prior surgeon Dr. Mendozasinjake diagnosis. She is otherwise without new concerns today but is accompaniedby her . She agrees to evaluation with ultrasound and potential biopsy within the next week and will be scheduled this evaluation Monday. The patient's most recent visit was 11/30/2018 for routine toxicity check prior tocompleting adjuvant therapy for week 12 of 12 weekly Taxol. Other than fatigue and neuropathy only 1 to 2 days after chemo, no other complaints. She previously completed 4 cycles of dose dense AC. Cycle 1, day 1: 07/06/2018. 09/07/2018 was cycle 1 day 1 of weekly paclitaxel 80 mg/m? IV for 12 weeks. She stopped Lupron monthly with chemotherapy after completion of Taxol. This was ordered for ovarian suppression, as the patient had her IUD removed. No breakthrough bleeding noted. No fever/chills, chest pain, cough, SOB, abdominal pain, diarrhea/constipation, skin rash or lower extremity edema. --Patient has had multiple episodes of urine frequency and dysuria with urinalyses x3 during the course of chemotherapy which all show mixed positive growth. Symptoms did not respond to antibiotics and I recommended Pyridium for symptomatic management 3 times daily and evaluation by gynecology for her dysuria and possible cath urine specimen. --She has resolution of prior erythema and mild drainage of the bilateral eyes and had been following with ophthalmology. No changes in vision related to this. --She notes intermittent numbness of fingers and toes that does not interfere with function. We have already dose reduced to 60% dose and she feels that her toe and finger numbness is stable with prior 40% dose reduction. --At follow-up in early July 2018, she noted swelling over the left labia for3-4 days, associated with mild discomfort but no significant pain or fluctuance. There also had mild skin breakdown in the bilateral inguinal creases. This wasconsistent with recurrence of her hidradenitis suppurativa and she completed antibiotics for this and was maintained on topical antifungal medication. No need for drainage of abscess or imaging as this was nontender and no fluctuance was noted. --At follow-up September 2018, she had persistent swelling and drainage with an ulcerated area over her left labia. This was a fungal complication of her hidradenitis suppurativa and ulcerations are improved but not completely resolved. No surrounding erythema or pain. Due to ongoing swelling and ulceration we decided to continue Diflucan for the remainder of her chemotherapy. Since that time she has had significant improvement of swelling and drainage over the labia and groin area with marked improvement of the prior ulcerated area. Breakdown in the bilateral inguinal creases has now resolved. This will also be followed by ICHTHYOLOGIST. She has persistent mild fatigue and she received an [id number] for further chemotherapy and lab draws. No erythema, tenderness, or symptoms of infection. Prior crusting over infusion port resolved. 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 This has been associated with moderate penetrance for breast cancer and the patient was recommended for familial counseling for other family members that may need to be tested for this. It also is associated with ataxia and telangiectasia but is not associated with herskin variance for recurrent infection (hidradenitis suppurativa). The patient has had bilateral mastectomy and no other surgical therapy is recommended. --I informed her [facility] her next survivorship visit in 6 weeks. --11/29/2018: We started adjuvant tamoxifen therapy 20 mg daily for 10 years if she remains premenopausal, but may have transition to aromatase inhibitor if menopause is demonstrated. She has not had any bleeding since starting Lupron with her first cycle, but had prior IUD and we will observe for symptoms of menopause and recurrence of menses after chemotherapy. She will not continue LHRH agonist therapy as she does not wish to have further fertility preservation. PREVIOUS HISTORY: This is a 48 year old lady who found a large mass in her right upper outer quadrant breast in March. She was immediately referred for mammogram and ultrasound and subsequent US guided needle biopsy 04/20/2018 of clinical 5 cmmass at 10 o'clock--this revealed an invasive mammary carcinoma, grade 2-3, ER 95%, [place] 0%, Her2 negative. She did not see medical oncology or discuss breast conserving therapy or immediate reconstruction with her surgeon. On 05/07/2018, she underwent right modified radical mastectomy with axillary lymph node dissection (no attempt for sentinel lymph node) and left simple mastectomy with axillary dissection. Pathology showed right breast with 4.2cm mass, 4 lymph nodes negative--ER/[place]/Her2 unchanged. No cancer in left breast or 3 lymph nodes. Bone scan and CT scan of the chest, abdomen/pelvis were performed at baseline due to some persistent chest wall pain after mastectomy but she was not found tohave any evidence of metastatic disease. 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 She has tolerated all cycles of AC reasonably well with no significant nausea. She noted dysuria during AC cycle 3 and subsequent urinalysis showed 4 + leukocyte esterase and 20-49 Urine WBC's. Subsequent culture was negative, but patient was started on prophylactic antibiotics due to immunosuppression. - Summary of Therapies Summary of Therapies: 1. Bilateral mastectomy with axillary lymph node dissection 05/07/2018 2. Oncotype Dx returned with high risk recurrence score and patient was counseled on 06/28/2018 regarding adjuvant chemotherapy with dose dense AC/paclitaxel. Completing staging with CT chest abdomen pelvis and bone scan for postmastectomy chest wall pain, cough, and liver cyst seen on echocardiogram. Baseline cardiac function is normal. 3. Started chemotherapy: 07/06/2018 Dose-dense AC followed by weekly paclitaxel (Category 1) Day 1: Doxorubicin 60mg/m2 IV Day 1: Cyclophosphamide 600mg/m2 IV. Repeat cycle every 14 days for 4 cycles, followed by: Day 1: Paclitaxel 80mg/m2 via 1-hour IV infusion weekly for 12 weeks. (Reduced to 60% dose due to neuropathy)--last dose 11/30/2018 4. Adjuvant hormonal therapy to start mid November 2018 (2 weeks after completion ofchemotherapy) she is premenopausal therefore will start tamoxifen 20 mg daily for 10 years, or transition to aromatase inhibitor therapy at the time of menopause. Subjective/ROS - Narrative: ROS Details: All systems reviewed & no additional complaints except as documented Constitutional: fair state of general health, able to conduct usual activities, normal activity level, normal exercise tolerance, no weight loss, no weight gain Eyes: no double vision, resolution of prior bilateral eye redness/drainage--on eyedrops from [facility]. No vision change. Ears, nose, mouth, throat: no headaches, no vertigo, no lightheadedness, no nasal congestion, no rhinorrhea, no epistaxis, no gingival bleeding, no sore throat Cardiovascular: no chest pain, no palpitations, no syncope, no dyspnea on exertion, no edema, no heart murmur Respiratory: Negative for shortness of breath with exertion, no wheezing, no cough, no sputum production, no respiratory infections, no TB exposure, positivefor intermittent chest wall pain over her mastectomy site. Gastrointestinal: no change in appetite, no dysphagia, no indigestion, no abdominal pain, no nausea, no vomiting, no jaundice, no constipation, no diarrhea, no abnormal stools, no change in bowel habits Genitourinary: Positive urgency, positive for recurrent urinary frequency and dysuria--UA shows pyuria but only mixed skin contaminants, no hematuria, no oliguria, no stones, no urinary retention. Positive left labial swelling and mild discomfort most consistent with hidradenitis suppurativa--improvement of prior superficial ulceration and drainage by her primary physician. No inguinaladenopathy. Musculoskeletal: no pain, no swelling, no redness Integumentary: other - multiple healed excisions of skin cancers, no rash, no bleeding or bruising, no itching--left labial swelling with improvement of priorulceration as noted above and no longer noting erythema or skin breakdown in thebilateral inguinal creases since persistent oral Diflucan while on chemotherapy. Integumentary (breast): incision site - well healed bilateral mastectomy, mild tenderness over bilateral chest wall without palpable masses, no swelling--priordisruption of her right axillary incision resolved after topical colloid therapythat she received from wound clinic. 12/14/2018 noted new left 1cm axillary nodule--pending evaluation with US and biopsy. Neurological: no tremor, no incoordination, mild intermittent paresthesias--no interference with function improved since dose reduction but persistent symptomsin hands, no memory loss Psychiatric: no anxiety, no depression Endocrine: no hormone therapy, no heat intolerance Hematologic/Lymphatic: no anemia, no enlarged lymph nodes Allergic/Immunologic: no reaction to drugs ROS Details: All systems reviewed & no additional complaints except as documented PMFSH - History Attestation statement: The following information was validated with the patient. - Social History Smoking Status: Never smoker Substance Use Type: None Home Medications & Allergies Allergies Allergy/AdvReac Type Severity Reaction Status Date / Time Sulfa (Sulfonamide Allergy Hives Verified 11/30/18 11:43 Antibiotics) Home Medications Medication Instructions Recorded Confirmed Type levothyroxine [Synthroid] 44 mcg PO BID 01/24/18 12/17/18 History liothyronine 5 mcg PO BID 01/24/18 12/17/18 History lisinopril-hydrochlorothiazide 1 tab PO DAILY 01/24/18 12/17/18 History metformin 500 mg PO DAILY 01/24/18 12/17/18 History paroxetine HCl 40 mg PO DAILY 01/24/18 12/17/18 History ondansetron HCl [Zofran] 8 mg PO TID PRN #30 tab 06/28/18 12/17/18 Rx quetiapine [Seroquel] 12.5 mg PO QHS 06/28/18 12/17/18 History fluticasone propionate See Rx Instructions .ROUTE 08/03/18 12/17/18 Rx .COMPLEX 7 Days #1 unit loteprednol etabonate [Lotemax] 1 drp EYE-BOTH QID 10/05/18 12/17/18 History fluconazole 100 mg PO DAILY #60 tab 11/09/18 12/17/18 Rx phenazopyridine 100 mg PO TID PRN 30 Days #90 tab 11/09/18 12/17/18 Rx tamoxifen 20 mg PO DAILY 30 Days #30 tab 11/30/18 12/17/18 Rx Objective - Resuscitation Status Resuscitation Status: Full Code - Height/Weight Height/Weight: Height 5 ft 2.6 in Weight 94.483 kg BSA for Today's Weight 2.07 - Vital Signs Vital Signs: 12/17/18 10:25 Temperature 98.4 F Pulse Rate [Left Brachial] 80 Respiratory Rate 16 Blood Pressure [Left Arm] 138/92 02 Sat by Pulse Oximetry 98 - Pain Generalized Pain Intensity: 4 Groin Pain Intensity: 2 Left Flank Pain Intensity: 3 Chest Pain Intensity: 4 Abdomen Pain Intensity: 2 - Emotional Needs Assessment Emotional Needs Assessment: Emotional Needs Identified? Yes Distress Screening Total 8 Support System Spouse Expressed Feelings Anxiety Expressed/Other Feelings Worry Comment Ineffective Coping Comment New nodule under left breast - ECOG Performance Status ECOG Score: 1 Physical Exam Narrative: Patient was last seen 11/30/2018, please refer to previous exam Limited exam to bilateral axilla and chest wall. Left axilla remarkable for 1 cm firm mobile thickness with no overlying erythema or tenderness. No new findings over her left chest wall with well-healed post mastectomy. No abnormalities of right axilla or chest wall. No supraclavicular or infraclavicular adenopathy. Patient to be referred for left axillary ultrasoundand biopsy. Results - Labs Labs: Diagram of Most Recent CBC and CMP 11/29/18 10:45 11/08/18 10:05 - Impressions Pending left breast ultrasound and biopsy if indicated Assessment and Plan (1) Mass of left axilla Patient was last seen 2 weeks ago but requested a walk-in visit today due to newleft axillary nodule measuring about 1 cm detected on self exam. Given her highrisk breast cancer and recent completion of chemotherapy, I will send her for ultrasound and possible biopsy as this is contralateral to her original breast cancer. She will follow-up in 1 week to review results. This is a low complexity visit over 15 minutes as problem focused to new axillary finding. (2) Cancer of right breast, stage 2 This is a 48 yo female who discovered a right upper outer quadrant breast mass and underwent bilateral mastectomy 05/07/2018. Final pathology returned as a pT2(4.2cm) pN0 (only 4 lymph nodes excised--possibly less nodes due to prior hydradenitis suppuritiva surgery) M0. The tumor is moderately differentiated estrogen receptor positive (0%), progesterone negative (0%), Her2 negative neoplasm. Menopausal status is somewhat unclear with IUD in place--this was removed since start of chemo. Patient does not have a history of tubal ligation. She continues Lupron injections while on chemotherapy and we decided against further Lupron as this is not indicated for fertility preservation. Lupron will stopped early November with last chemotherapy. Since tumor was < 5cm, negative lymph nodes, and negative margins, she will not require postmastectomy radiation therapy. I sent the tumor specimen for Oncotype Dx which returned with high risk recurrence score of 47 consistent with29% recurrence at 10 years with hormonal therapy alone. Baseline Echo showed normal ejection fraction, however a 2 cm hepatic cyst of unclear etiology was seen on echo. CT of chest abdomen and pelvis + bone scan due to chest wall pain, cough, an indeterminate liver cyst seen on echo were ordered--all were found to be unremarkable. No metastatic disease on bone scan. ----- ----- ----- Completed 4 cycles dose dense AC, then 12 weekly paclitaxel with last treatment 11/29/2018. She tolerated this very well; only complaint is mild intermittent peripheral numbness and much improved labial swelling/perineal ulcerations due to hidradenitis suppurativa which was initially treated with antibiotics/oral Diflucan 100 mg daily during chemotherapy with significant improvement of symptoms. Prior recurrent dysuria with negative urine cultures but mixed positive skin contaminant growth. I recommended reevaluation by ICHTHYOLOGIST for her dysuria and to determine other potential etiologies of dysuria, but symptoms appear improvedafter a trial of Pyridium 100 mg 3 times daily as needed for remainder of chemotherapy. 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 She has stable mild fatigue. No issues with nausea/vomiting or diarrhea. Laboratories unremarkable. 11/30/2018: we discussed tamoxifen adjuvant therapy with risks of hot flashes, endometrial cancer, and thromboembolic disease. She will remain on tamoxifen until symptoms and laboratory testing consistent with menopause. Goal tamoxifenalone is 10 years, or transition to 5 further years of aromatase inhibitor therapy. She will begin tamoxifen therapy in approximately 2 weeks so that she does not have overlapping toxicities with chemotherapy. Patient to return to the clinic in 4 weeks for survivorship visit and discussionof symptoms on tamoxifen. We may coordinate follow-up imaging at that time for indeterminate hepatic cyst and also potential surveillance for pancreatic cancergiven her SARABJIT mutation (discussed with medical genetics--unlikely to benefit from additional cancer screening but may offer a trial at [facility]). She knows to call us sooner with any questions/concerns. This is a low complexity visit over 15 minutes. (3) Estrogen receptor positive status [ER+] Tamoxifen 20 mg daily with goal of 10 years following chemotherapy as noted above. We stopped monthly Lupron therapy as she does not wish to preserve fertility at this point. (4) Hidradenitis suppurativa Four months ago she noted left groin swelling with normal CBC. Patient has known history of hidradenitis suppurativa and known sulfa allergy. We initially treated her for possible MRSA with doxycycline 100 mg twice daily for 1 week and advised to go to emergency department if worsening of swelling or pain. She followed up with her primary physician who prescribed topical antifungal therapy but she had ongoing swelling and drainage of this area without erythema. She had significant improvement with Diflucan 100 mg daily--will continue for the remainder of chemotherapy, then titrate off over the next 2 weeks. I advised evaluation by ICHTHYOLOGIST for persistent dysuria symptoms but these appeared to be improved since Pyridium as needed. No change in scarring in bilateral axillae or evidence of recurrence in that region. 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 She has already had bilateral mastectomy but will be speaking with family members regarding recommendations for screening for this breast cancer associated gene. There is also an association with pancreatic cancer and I have contacted [facility] to see if there is any recommended surveillance imaging or testing recommended for patients with this mutation. We will discuss reimaging if indicated at the time of her survivorship visit in 6 weeks. 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 She completed all doses and we will evaluate at survivorship visit for any functional changes related to paclitaxel. - Chemo Plan Goal of Treatment: Curative - Time with Patient Coordination of Care & Counseling Time: Greater than 50% of time spent with patient was for coordination of care (as documented) and [id number] counseling of patient and/or family. Dictated By: Tanya Washington MD DD/ 1030 Signed By: <Electronically signed by MD Tanya Washington> 12/17/18 1458 [facility] Work Phone: [phone] Progress note Author Tanya Washington [facility] November 30, 2018 1:22pm Note Date/Time November 30, 2018 10:38a m [facility] [place] [id number] Hem/Onc Follow Up Note - OP Signed Patient: Maria M Mckeon MR#: [id number] : 1970 Acct:[id number] Age/Sex: 48 / F Type: REG RCR Copies to: Driss Mendoza Gregory MD Kim E Knight, MD~ Subjective Date/Time of Service: Date of Service: 11/30/2018 Time of Service: 10:37 Chief Complaint: Patient is here for follow up before #12 of weekly Paclitaxel today, patient complains of occasional bone pain. Patient complains of fatigue after treatments. - Diagnosis DIAGNOSIS: 1. Right upper outer quadrant [id number] (4.2 cm primary, 4 LN neg), moderately differentiated adenocarcinoma, ER 90%, [place] 0%, Her2 not overexpressed --Sent Oncotype DX on specimen. Reviewed with patient 06/28/2018. Recurrence score returned high risk 47 (correlating to 10 -year recurrence of 29%). Counseled patient for dense dense AC Taxol chemotherapy. --Notes some shortness of breath, intermittent cough and chest wall pain. Had normal baseline echo but 2 cm cyst seen in the liver. Ordering staging bone scan with CT of chest abdomen pelvis due to symptoms prior to chemotherapy. 2. Bilateral mastectomy with axillary lymph node dissection 05/07/2018 3. History of multiple skin squamous cell carcinoma excisions, most recently 12/2017 4. History of resection of hydradenitis suppuritiva bilateral axillae --during chemotherapy, she had groin and perineal hidradenitis suppuritiva--improved with antibiotics and antifungal therapy, but maintaining oral Diflucan until the end of chemotherapy 5. HTN 6. Hypothyroidism 7. Chronic sinusitis 8. IBS/diverticulosis 9. Recurrent urinary urgency and dysuria. Has had 3 urinalyses since start ofchemo which show gross pyuria but cultures show mixed positive skin contaminants. She received 1 course of antibiotics, but due to persistent symptoms I sent her to nursing home administrator Dr. Gilbert in [place] for evaluation of her urgency/dysuria. HPI: The patient presents for routine toxicity check during adjuvant therapy here forweek 12 of 12 weekly Taxol. Other than fatigue and neuropathy only 1 to 2 days after chemo, no other complaints. She previously completed 4 cycles of dose dense AC. Cycle 1, day 1: 07/06/2018. 09/07/2018 was cycle 1 day 1 of weekly paclitaxel 80 mg/m? IV for 12 weeks. She maintains Lupron monthly with chemotherapy for ovarian suppression, as the patient had her IUD removed. No breakthrough bleeding noted. We agreed to stop Lupron after injection today as patient is not interested in maintaining fertility. No fever/chills, chest pain, cough, SOB, abdominal pain, diarrhea/constipation, skin rash or lower extremity edema. --Patient has had multiple episodes of urine frequency and dysuria with urinalyses x3 during the course of chemotherapy which all show mixed positive growth. Symptoms did not respond to antibiotics and I recommended Pyridium for symptomatic management 3 times daily and evaluation by gynecology for her dysuria and possible cath urine specimen. --She now has resolution of prior erythema and mild drainage of the bilateral eyes and had been following with ophthalmology. No changes in vision related tothis. --She notes intermittent numbness of fingers and toes that does not interfere with function. We have already dose reduced to 60% dose and she feels that her toe and finger numbness is stable with prior 40% dose reduction. --At follow-up in early July 2018, she noted swelling over the left labia for3-4 days, associated with mild discomfort but no significant pain or fluctuance. There also had mild skin breakdown in the bilateral inguinal creases. This wasconsistent with recurrence of her hidradenitis suppurativa and she completed antibiotics for this and was maintained on topical antifungal medication. No need for drainage of abscess or imaging as this was nontender and no fluctuance was noted. --At follow-up September 2018, she had persistent swelling and drainage with an ulcerated area over her left labia. This was a fungal complication of her hidradenitis suppurativa and ulcerations are improved but not completely resolved. No surrounding erythema or pain. Due to ongoing swelling and ulceration we decided to continue Diflucan for the remainder of her chemotherapy. Since that time she has had significant improvement of swelling and drainage over the labia and groin area with marked improvement of the prior ulcerated area. Breakdown in the bilateral inguinal creases has now resolved. This will also be followed by ICHTHYOLOGIST. She has persistent mild fatigue and she received an [id number] for further chemotherapy and lab draws. No erythema, tenderness, or symptoms of infection. Prior crusting over infusion port resolved. 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 This has been associated with moderate penetrance for breast cancer and the patient was recommended for familial counseling for other family members that may need to be tested for this. It also is associated with ataxia and telangiectasia but is not associated with herskin variance for recurrent infection (hidradenitis suppurativa). The patient has had bilateral mastectomy and no other surgical therapy is recommended. --I informed her [facility] her next survivorship visit in 6 weeks. --Today we discussed adjuvant tamoxifen therapy 20 mg daily for 10 years if she remains premenopausal, but may have transition to aromatase inhibitor if menopause is demonstrated. She has not had any bleeding since starting Lupron with her first cycle, but had prior IUD and we will observe for symptoms of menopause and recurrence of menses after chemotherapy. She will not continue LHRH agonist therapy as she does not wish to have further fertility preservation. PREVIOUS HISTORY: This is a 48 year old lady who found a large mass in her right upper outer quadrant breast in March. She was immediately referred for mammogram and ultrasound and subsequent US guided needle biopsy 04/20/2018 of clinical 5 cmmass at 10 o'clock--this revealed an invasive mammary carcinoma, grade 2-3, ER 95%, NY 0%, Her2 negative. She did not see medical oncology or discuss breast conserving therapy or immediate reconstruction with her surgeon. On 05/07/2018, she underwent right modified radical mastectomy with axillary lymph node dissection (no attempt for sentinel lymph node) and left simple mastectomy with axillary dissection. Pathology showed right breast with 4.2cm mass, 4 lymph nodes negative--ER/NY/Her2 unchanged. No cancer in left breast or 3 lymph nodes. Bone scan and CT scan of the chest, abdomen/pelvis were performed at baseline due to some persistent chest wall pain after mastectomy but she was not found tohave any evidence of metastatic disease. 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 She has tolerated all cycles of AC reasonably well with no significant nausea. She noted dysuria during AC cycle 3 and subsequent urinalysis showed 4 + leukocyte esterase and 20-49 Urine WBC's. Subsequent culture was negative, but patient was started on prophylactic antibiotics due to immunosuppression. - Summary of Therapies Summary of Therapies: 1. Bilateral mastectomy with axillary lymph node dissection 05/07/2018 2. Oncotype Dx returned with high risk recurrence score and patient was counseled on 06/28/2018 regarding adjuvant chemotherapy with dose dense AC/paclitaxel. Completing staging with CT chest abdomen pelvis and bone scan for postmastectomy chest wall pain, cough, and liver cyst seen on echocardiogram. Baseline cardiac function is normal. 3. Started chemotherapy: 07/06/2018 Dose-dense AC followed by weekly paclitaxel (Category 1) Day 1: Doxorubicin 60mg/m2 IV Day 1: Cyclophosphamide 600mg/m2 IV. Repeat cycle every 14 days for 4 cycles, followed by: Day 1: Paclitaxel 80mg/m2 via 1-hour IV infusion weekly for 12 weeks. (Reduced to 60% dose due to neuropathy)--last dose 11/30/2018 4. Adjuvant hormonal therapy to start mid November 2018 (2 weeks after completion ofchemotherapy) she is premenopausal therefore will start tamoxifen 20 mg daily for 10 years, or transition to aromatase inhibitor therapy at the time of menopause. Subjective/ROS - Narrative: ROS Details: All systems reviewed & no additional complaints except as documented Constitutional: fair state of general health, able to conduct usual activities, normal activity level, normal exercise tolerance, no weight loss, no weight gain Eyes: no double vision, resolution of prior bilateral eye redness/drainage--on eyedrops from [facility] [employer] [place]. No vision change. Ears, nose, mouth, throat: no headaches, no vertigo, no lightheadedness, no nasal congestion, no rhinorrhea, no epistaxis, no gingival bleeding, no sore throat Cardiovascular: no chest pain, no palpitations, no syncope, no dyspnea on exertion, no edema, no heart murmur Respiratory: Negative for shortness of breath with exertion, no wheezing, no cough, no sputum production, no respiratory infections, no TB exposure, positivefor intermittent chest wall pain over her mastectomy site. Gastrointestinal: no change in appetite, no dysphagia, no indigestion, no abdominal pain, no nausea, no vomiting, no jaundice, no constipation, no diarrhea, no abnormal stools, no change in bowel habits Genitourinary: Positive urgency, positive for recurrent urinary frequency and dysuria--UA shows pyuria but only mixed skin contaminants, no hematuria, no oliguria, no stones, no urinary retention. Positive left labial swelling and mild discomfort most consistent with hidradenitis suppurativa--improvement of prior superficial ulceration and drainage by her primary physician. No inguinaladenopathy. Musculoskeletal: no pain, no swelling, no redness Integumentary: other - multiple healed excisions of skin cancers, no rash, no bleeding or bruising, no itching--left labial swelling with improvement of priorulceration as noted above and no longer noting erythema or skin breakdown in thebilateral inguinal creases since persistent oral Diflucan while on chemotherapy. Integumentary (breast): incision site - well healed bilateral mastectomy, mild tenderness over bilateral chest wall without palpable masses, no swelling--priordisruption of her right axillary incision resolved after topical colloid therapythat she received from wound clinic. Neurological: no tremor, no incoordination, mild intermittent paresthesias--no interference with function improved since dose reduction but persistent symptomsin hands, no memory loss Psychiatric: no anxiety, no depression Endocrine: no hormone therapy, no heat intolerance Hematologic/Lymphatic: no anemia, no enlarged lymph nodes Allergic/Immunologic: no reaction to drugs ROS Details: All systems reviewed & no additional complaints except as documented PMFSH - History Attestation statement: The following information was validated with the patient. Source: Old Records Reviewed - Social History Smoking Status: Never smoker Substance Use Type: None Home Medications & Allergies Allergies Allergy/AdvReac Type Severity Reaction Status Date / Time Sulfa (Sulfonamide Allergy Hives Verified 11/30/18 11:43 Antibiotics) Home Medications Medication Instructions Recorded Confirmed Type levothyroxine [Synthroid] 44 mcg PO BID 01/24/18 11/30/18 History liothyronine 5 mcg PO BID 01/24/18 11/30/18 History lisinopril-hydrochlorothiazide 1 tab PO DAILY 01/24/18 11/30/18 History metformin 500 mg PO DAILY 01/24/18 11/30/18 History paroxetine HCl 40 mg PO DAILY 01/24/18 11/30/18 History ondansetron HCl [Zofran] 8 mg PO TID PRN #30 tab 06/28/18 11/30/18 Rx quetiapine [Seroquel] 12.5 mg PO QHS 06/28/18 11/30/18 History fluticasone propionate See Rx Instructions .ROUTE 08/03/18 11/30/18 Rx .COMPLEX 7 Days #1 unit loteprednol etabonate [Lotemax] 1 drp EYE-BOTH QID 10/05/18 11/30/18 History fluconazole 100 mg PO DAILY #60 tab 11/09/18 11/30/18 Rx phenazopyridine 100 mg PO TID PRN 30 Days #90 tab 11/09/18 11/30/18 Rx tamoxifen 20 mg PO DAILY 30 Days #30 tab 11/30/18 Rx Objective - Resuscitation Status Resuscitation Status: Full Code - Height/Weight Height/Weight: Height 5 ft 2.6 in Weight 97.2 kg BSA for Today's Weight 2.08 - Vital Signs Vital Signs: 11/30/18 10:30 Temperature 97.2 F L Pulse Rate [Left Brachial] 100 H Respiratory Rate 18 Blood Pressure [Left Arm] 135/90 02 Sat by Pulse Oximetry 99 - Pain Generalized Pain Intensity: 4 Groin Pain Intensity: 2 Left Flank Pain Intensity: 3 Chest Pain Intensity: 4 Abdomen Pain Intensity: 2 - Emotional Needs Assessment Emotional Needs Assessment: Emotional Needs Identified? No Distress Screening Total 0 Support System Spouse,Sibling(s) - ECOG Performance Status ECOG Score: 1 Physical Exam - Constitutional no acute distress, average body habitus, obese, no chronically ill appearing, cooperative - Routine HEENT Exam Head: normocephalic, atraumatic, no cushingoid faces Eye: EOMI, PERRL, no conjunctival injection, no scleral icterus ENT: mucous membranes moist, oropharynx clear, dentition normal - Routine Neck Exam supple, full ROM, no lymphadenopathy, no thyromegaly, no tenderness - Routine Chest/Breast/Axilla Exam Chest wall: no tenderness, no mass, other - Resolved crusting over right chest wall port without surrounding erythema or skin breakdown. Will follow closely. Breast: no induration, no swelling, scars, right mastectomy, left mastectomy, other - Resolved tenderness over her bilateral chest wall to palpation without palpable masses. Incisions are well-healed from bilateral mastectomy Axillae: no lymphadenopathy, no mass, no swelling - 1+ upper extremity lymphedema--right arm, performing lymphedema therapy exercises, no suppurative lesions - Routine Respiratory Exam no accessory muscle use, CTA bilaterally, no respiratory distress, no rhonchi, no wheezes, no crackles, no distant breath sounds, no diminished air movement - Routine Cardiovascular Exam RRR, no murmur, no irregularly irregular - Routine Abdominal Exam soft, normoactive bowel sounds, no tenderness, no distended, no organomegaly, nomass - Routine Rectal Exam Visual: Present: tenderness, palpable mass - Routine Exam External: Present: normal urethra appearance, other - No erythema or epidermal disruption of inguinal creases, no drainage or erythema, persistent fullness posterior labia/perianal area on right. Absent: erythema - Resolved labial erythema from prior visit, swelling - improved from last visit, tenderness - resolution of prior tenderness, no fluctuance over labia majora--mild ulcerationwithout erythema, lesions, ecchymosis, discharge Groin: Absent: inguinal lymphadenopathy, tenderness, swelling Perineal: Present: erythema, tenderness - Routine Extremities Exam Present: full ROM, pulses intact. Absent: cyanosis, clubbing, edema, calf tenderness, tenderness - Routine Back/Spine/Pelvis Exam Back/Spine: Present: full ROM. Absent: CVA tenderness, paraspinal tenderness, vertebral tenderness - Routine Skin Exam Present: intact. Absent: erythema, petechiae, urticaria, jaundice, rash, ecchymosis - Routine Neurological Exam Present: alert, oriented X3, CN II-XII intact, moving all extremities, vision grossly intact, hearing grossly intact, normal speech. Absent: sensory deficit,motor deficit, abnormal gait, tremors - Routine Psychiatric Exam Present: normal affect, normal thought process, cooperative. Absent: depressed,anxious Results - Labs Labs: Diagram of Most Recent CBC and CMP 11/29/18 10:45 11/08/18 10:05 Labs - Last 7 Days 11/29/18 10:45: WBC 3.5 L, Corrected WBC 3.5 L, RBC 4.33, Hgb 13.2, Hct 38.3, MCV 88.4, MCH 30.5, MCHC 34.4, RDW 14.4, Plt Count 254, MPV 7.8, Neut % (Auto) 60.8, Lymph % (Auto) 23.1, [place] % (Auto) 7.2, Eos % (Auto) 7.8, Baso % (Auto) 1.1, Neut # (Auto) 2.1, Lymph # (Auto) 0.8 L, [place] # (Auto) 0.3, Eos # (Auto) 0.3, Baso # (Auto) 0.0, Nucleated RBC % (auto) 0.4 - Impressions ITS Impressions Bone Scan Nuclear Medicine 07/11/18 10:56 IMPRESSION: Postoperative changes are noted in the right chest wall. No acute intra-abdominal or thoracic pathology. Uncomplicated colonic diverticulosis. 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 No evidence of metastatic disease. Degenerative changes are present in the shoulders, hips, right knee, and feet bilaterally. No focal abnormal radiotracer accumulation to suggest bony metastatic disease. Impression dictated by: Selvin Devine M.D.07/11/2018 5:12 PM Dictation Location: [place] [address] Any impression(s) listed above is documentation that was entered by the reading physician into a diagnostic report(s) for Maria M Mckeon. I have reviewed the report(s) and am incorporating any findings in the treatment plan of this patient where applicable. No new imaging for review. Mammography not indicated due to bilateral mastectomy. Assessment and Plan (1) Cancer of right breast, stage 2 This is a 48 yo female who discovered a right upper outer quadrant breast mass and underwent bilateral mastectomy 05/07/2018. Final pathology returned as a pT2(4.2cm) pN0 (only 4 lymph nodes excised--possibly less nodes due to prior hydradenitis suppuritiva surgery) M0. The tumor is moderately differentiated estrogen receptor positive (0%), progesterone negative (0%), Her2 negative neoplasm. Menopausal status is somewhat unclear with IUD in place--this was removed since start of chemo. Patient does not have a history of tubal ligation. She continues Lupron injections while on chemotherapy and we decided against further Lupron as this is not indicated for fertility preservation. Lupron will stop after injection today. Since tumor is < 5cm, negative lymph nodes, and negative margins, she will not require postmastectomy radiation therapy. I sent the tumor specimen for Oncotype Dx which returned with high risk recurrence score of 47 consistent with29% recurrence at 10 years with hormonal therapy alone. Baseline Echo showed normal ejection fraction, however a 2 cm hepatic cyst of unclear etiology was seen on echo. CT of chest abdomen and pelvis + bone scan due to chest wall pain, cough, an indeterminate liver cyst seen on echo were ordered--all were found to be unremarkable. No metastatic disease on bone scan. ----- ----- ----- Seen today for routine toxicity check after completing 4 cycles dose dense AC, now here for week 12 of 12 weekly paclitaxel. She is tolerating this very well;only complaint today is mild intermittent peripheral numbness and much improved labial swelling/perineal ulcerations due to hidradenitis suppurativa which was initially treated with antibiotics/now remaining oral Diflucan 100 mg daily during chemotherapy with significant improvement of symptoms. Prior recurrent dysuria with negative urine cultures but mixed positive skin contaminant growth. I recommended reevaluation by ICHTHYOLOGIST for her dysuria and to determine other potential etiologies of dysuria, but symptoms appear improved after a trial of Pyridium 100 mg 3 times daily as needed for remainder of chemotherapy. 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 She has stable mild fatigue. No issues with nausea/vomiting or diarrhea. Laboratories unremarkable. Today we discussed tamoxifen adjuvant therapy with risks of hot flashes, endometrial cancer, and thromboembolic disease. She will remain on tamoxifen until symptoms and laboratory testing consistent with menopause. Goal tamoxifenalone is 10 years, or transition to 5 further years of aromatase inhibitor therapy. She will begin tamoxifen therapy in approximately 2 weeks so that she does not have overlapping toxicities with chemotherapy. Patient to return to the clinic in 6 weeks for survivorship visit and discussionof symptoms on tamoxifen. We may coordinate follow-up imaging at that time for indeterminate hepatic cyst and also potential surveillance for pancreatic cancergiven her SARABJIT mutation. She knows to call us sooner with any questions/concerns. This is a moderate complexity visit over 30 minutes (2) Estrogen receptor positive status [ER+] Tamoxifen 20 mg daily with goal of 10 years following chemotherapy as noted above. We will stop monthly Lupron therapy as she does not wish to preserve fertility at this point. (3) Hidradenitis suppurativa Four months ago she noted left groin swelling with normal CBC. Patient has known history of hidradenitis suppurativa and known sulfa allergy. We initially treated her for possible MRSA with doxycycline 100 mg twice daily for 1 week and advised to go to emergency department if worsening of swelling or pain. She followed up with her primary physician who prescribed topical antifungal therapy but she had ongoing swelling and drainage of this area without erythema. She had significant improvement with Diflucan 100 mg daily--will continue for the remainder of chemotherapy, then titrate off over the next 2 weeks. I advised evaluation by ICHTHYOLOGIST for persistent dysuria symptoms but these appeared to be improved since Pyridium as needed. No change in scarring in bilateral axillae or evidence of recurrence in that region. 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 She has already had bilateral mastectomy but will be speaking with family members regarding recommendations for screening for this breast cancer associated gene. There is also an association with pancreatic cancer and I have contacted [facility] to see if there is any recommended surveillance imaging or testing recommended for patients with this mutation. We will discuss reimaging if indicated at the time of her survivorship visit in 6 weeks. 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 At this time she would like to continue current dose intensity and will evaluate at survivorship visit for any functional changes related to paclitaxel. (6) Dysuria Recurrent dysuria with multiple urinalyses showing skin contaminants on culture. Recommended ICHTHYOLOGIST consultation and symptoms improved with trial of Pyridium 100 mg 3 times daily as needed. (7) Encounter for antineoplastic chemotherapy Proceed with cycle 12 day 1 weekly paclitaxel today--continue 60% dose reduction. - Chemo Plan Chemo Plan (Dose, Rate, Freq): Completed 4 cycles dose dense AC, now completing weekly paclitaxel 80 mg/m? x 12 weeks starting 09/07/2018. Tamoxifen 20 mg daily to commence 2 weeks after chemotherapy. Goal 10 years of therapy. Number of Cycles: 12 - weekly paclitaxel Goal of Treatment: Curative - Time with Patient Coordination of Care & Counseling Time: Greater than 50% of time spent with patient was for coordination of care (as documented) and [id number] counseling of patient and/or family. Dictated By: Tanya Washington MD DD/ [id number] Signed By: <Electronically signed by MD Tanya Washington> 11/30/18 1320 [facility] Work Phone: [phone] 726-782904-12-2019 Progress note Author Tanya Washington [facility] November 09, 2018 12:21pm Note Date/Time November 09, 2018 10: 21am [facility] [place] [address] Hem/Onc Follow Up Note - OP Signed Patient: Maria M Mckeon MR#: [id number] : 1970 Acct:[id number] Age/Sex: 48 / F Type: REG RCR Copies to: Driss Mendoza Gregory MD Kim E Knight, MD~ Subjective Date/Time of Service: Date of Service: 11/09/2018 Time of Service: 10:19 Chief Complaint: Patient is here for follow up visit before Week 9 of Paclitaxel. Patient complains of fatigue, shortness of breath, intermittent dizzines, and continued neuropathy in hands and feet. - Diagnosis DIAGNOSIS: 1. Right upper outer quadrant [id number] (4.2 cm primary, 4 LN neg), moderately differentiated adenocarcinoma, ER 90%, [place] 0%, Her2 not overexpressed --Sent Oncotype DX on specimen. Reviewed with patient 06/28/2018. Recurrence score returned high risk 47 (correlating to 10 -year recurrence of 29%). Counseled patient for dense dense AC Taxol chemotherapy. --Notes some shortness of breath, intermittent cough and chest wall pain. Had normal baseline echo but 2 cm cyst seen in the liver. Ordering staging bone scan with CT of chest abdomen pelvis due to symptoms prior to chemotherapy. 2. Bilateral mastectomy with axillary lymph node dissection 05/07/2018 3. History of multiple skin squamous cell carcinoma excisions, most recently 12/2017 4. History of resection of hydradenitis suppuritiva bilateral axillae --during chemotherapy, she had groin and perineal hidradenitis suppuritiva--improved with antibiotics and antifungal therapy, but maintaining oral Diflucan until the end of chemotherapy 5. HTN 6. Hypothyroidism 7. Chronic sinusitis 8. IBS/diverticulosis 9. Recurrent urinary urgency and dysuria. Has had 3 urinalyses since start ofchemo which show gross pyuria but cultures show mixed positive skin contaminants. She received 1 course of antibiotics, but due to persistent symptoms I am sending her to nursing home administrator Dr. Gilbert in [place] for evaluation of her urgency/dysuria. HPI: The patient presents for routine toxicity check during adjuvant therapy here forcycle 9 of 12 weekly Taxol. She previously completed 4 cycles of dose dense AC. Cycle 1, day 1: 07/06/2018. 09/07/2018 was cycle 1 day 1 of weekly paclitaxel 80mg/m? IV for 12 weeks. She maintains Lupron monthly with chemotherapy for ovarian suppression, as the patient had her IUD removed. No breakthrough bleeding noted. No fever/chills, chest pain, cough, SOB, abdominal pain, diarrhea/constipation, skin rash or lower extremity edema. --Patient has had multiple episodes of urine frequency and dysuria with urinalyses x3 during the course of chemotherapy which all show mixed positive growth. Symptoms do not respond to antibiotics and most recent episode this week has not been treated with antibiotics. I recommended Pyridium for symptomatic management 3 times daily and evaluation by gynecology for her dysuria and possible cath urine specimen. --She now has resolution of prior erythema and mild drainage of the bilateral eyes and had been following with ophthalmology. No changes in vision related tothis. --She notes intermittent numbness of fingers and toes that does not interfere with function. We have already dose reduced to 60% dose and she feels that her toe numbness is stable but persistent symptoms in her fingers. I offered dose reduction today but she wishes to proceed with current 60% dose and will consider further dose reduction if worsening/functional symptoms. --At follow-up in early July, she noted swelling over the left labia for 3-4 days, associated with mild discomfort but no significant pain or fluctuance. There also had mild skin breakdown in the bilateral inguinal creases. This was consistent with recurrence of her hidradenitis suppurativa and she completed antibiotics for this and was maintained on topical antifungal medication. No need for drainage of abscess or imaging as this was nontender and no fluctuance was noted. --At follow-up last month, she had persistent swelling and drainage with an ulcerated area over her left labia. This was a fungal complication of her hidradenitis suppurativa and ulcerations are improved but not completely resolved. No surrounding erythema or pain. Due to ongoing swelling and ulceration we decided to continue Diflucan for the remainder of her chemotherapy. Since that time she has had significant improvement of swelling and drainage over the labia and groin area with marked improvement of the prior ulcerated area. Breakdown in the bilateral inguinal creases has now resolved. This will also be followed by ICHTHYOLOGIST. She has persistent mild fatigue and she received an [id number] for further chemotherapy and lab draws. No erythema, tenderness, or symptoms of infection. Prior crusting over infusion port resolved. 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 This has been associated with moderate penetrance for breast cancer and the patient was recommended for familial counseling for other family members that may need to be tested for this. It also is associated with ataxia and telangiectasia but is not associated with herskin variance for recurrent infection (hidradenitis suppurativa). The patient has had bilateral mastectomy and no other surgical therapy is recommended. PREVIOUS HISTORY: This is a 48 year old lady who found a large mass in her right upper outer quadrant breast in March. She was immediately referred for mammogram and ultrasound and subsequent US guided needle biopsy 04/20/2018 of clinical 5 cmmass at 10 o'clock--this revealed an invasive mammary carcinoma, grade 2-3, ER 95%, [place] 0%, Her2 negative. She did not see medical oncology or discuss breast conserving therapy or immediate reconstruction with her surgeon. On 05/07/2018, she underwent right modified radical mastectomy with axillary lymph node dissection (no attempt for sentinel lymph node) and left simple mastectomy with axillary dissection. Pathology showed right breast with 4.2cm mass, 4 lymph nodes negative--ER/[place]/Her2 unchanged. No cancer in left breast or 3 lymph nodes. Bone scan and CT scan of the chest, abdomen/pelvis were performed at baseline due to some persistent chest wall pain after mastectomy but she was not found tohave any evidence of metastatic disease. 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 She has tolerated all cycles of AC reasonably well with no significant nausea. She noted dysuria during AC cycle 3 and subsequent urinalysis showed 4 + leukocyte esterase and 20-49 Urine WBC's. Subsequent culture was negative, but patient was started on prophylactic antibiotics due to immunosuppression. - Summary of Therapies Summary of Therapies: 1. Bilateral mastectomy with axillary lymph node dissection 05/07/2018 2. Oncotype Dx returned with high risk recurrence score and patient was counseled on 06/28/2018 regarding adjuvant chemotherapy with dose dense AC/paclitaxel. Completing staging with CT chest abdomen pelvis and bone scan for postmastectomy chest wall pain, cough, and liver cyst seen on echocardiogram. Baseline cardiac function is normal. 3. Started chemotherapy: 07/06/2018 Dose-dense AC followed by weekly paclitaxel (Category 1) Day 1: Doxorubicin 60mg/m2 IV Day 1: Cyclophosphamide 600mg/m2 IV. Repeat cycle every 14 days for 4 cycles, followed by: Day 1: Paclitaxel 80mg/m2 via 1-hour IV infusion weekly for 12 weeks. (Reduced to 60% dose due to neuropathy) Subjective/ROS - Narrative: ROS Details: All systems reviewed & no additional complaints except as documented Constitutional: fair state of general health, able to conduct usual activities, normal activity level, normal exercise tolerance, no weight loss, no weight gain Eyes: no double vision, resolution of prior bilateral eye redness/drainage--on eyedrops from roller [place]. No vision change. Ears, nose, mouth, throat: no headaches, no vertigo, no lightheadedness, no nasal congestion, no rhinorrhea, no epistaxis, no gingival bleeding, no sore throat Cardiovascular: no chest pain, no palpitations, no syncope, no dyspnea on exertion, no edema, no heart murmur Respiratory: Negative for shortness of breath with exertion, no wheezing, no cough, no sputum production, no respiratory infections, no TB exposure, positivefor intermittent chest wall pain over her mastectomy site. Gastrointestinal: no change in appetite, no dysphagia, no indigestion, no abdominal pain, no nausea, no vomiting, no jaundice, no constipation, no diarrhea, no abnormal stools, no change in bowel habits Genitourinary: Positive urgency, positive for recurrent urinary frequency and dysuria--UA shows pyuria but only mixed skin contaminants, no hematuria, no oliguria, no stones, no urinary retention. Positive left labial swelling and mild discomfort most consistent with hidradenitis suppurativa--improvement of prior superficial ulceration and drainage by her primary physician. No inguinaladenopathy. Musculoskeletal: no pain, no swelling, no redness Integumentary: other - multiple healed excisions of skin cancers, no rash, no bleeding or bruising, no itching--left labial swelling with improvement of priorulceration as noted above and no longer noting erythema or skin breakdown in thebilateral inguinal creases since persistent oral Diflucan while on chemotherapy. Integumentary (breast): incision site - well healed bilateral mastectomy, mild tenderness over bilateral chest wall without palpable masses, no swelling--priordisruption of her right axillary incision resolved after topical colloid therapythat she received from wound clinic. Neurological: no tremor, no incoordination, mild intermittent paresthesias--no interference with function improved since dose reduction but persistent symptomsin hands, no memory loss Psychiatric: no anxiety, no depression Endocrine: no hormone therapy, no heat intolerance Hematologic/Lymphatic: no anemia, no enlarged lymph nodes Allergic/Immunologic: no reaction to drugs ROS Details: All systems reviewed & no additional complaints except as documented ONC PMF - General Attestation statement: The following information was validated with the patient. Source: Old Records Reviewed - Medical History Medical history: Cancer, Hypertension, Thyroid Disease - Isra's thyroiditis Past Medical History Comments: Hypothyroid, skin cancer, full dentures due to bone loss, plantar fasciitis, IBS, diverticulitis, hidranitis suppuritiva - Surgical History Surgical history female: cancer surgery Surgical History Comment: x3 skin cancer removal squamous cell, bilt mastectomy 05/07/2018, sinus surgery 2011, excision Hidradenitis suppurative, ecx vaginal lump, all teeth were extracted - have dentures November 2015 - Cardiac History Patient on Systems Test Engineer: No Does Patient Have Pacemaker?: No - Psych History Psychiatric history: anxiety, depression - ENVIRONMENTAL DIRECTOR Hx : 1 Para: 1 ENVIRONMENTAL DIRECTOR Comments: Has paraguard copper IUD does not have periods anymore--removedprior to chemotherapy - Family History Family History: CAD/[place], cancer, diabetes, hypertension - Genetics Would you like a referral to genetics?: No - Social History History of Any Tobacco Product Use?: No Do you ever drink alcohol (including beer or wine)?: Yes If yes, how many days did you drink in the past week?: 0 Did you previously drink alcohol, but have since quit?: No Substance Use Type: None Home Medications & Allergies Allergies Allergy/AdvReac Type Severity Reaction Status Date / Time Sulfa (Sulfonamide Allergy Hives Verified 10/26/18 09:13 Antibiotics) Home Medications Medication Instructions Recorded Confirmed Type levothyroxine [Synthroid] 44 mcg PO BID 01/24/18 10/26/18 History liothyronine 5 mcg PO BID 01/24/18 10/26/18 History lisinopril-hydrochlorothiazide 1 tab PO DAILY 01/24/18 10/26/18 History metformin 500 mg PO DAILY 01/24/18 10/26/18 History paroxetine HCl 40 mg PO DAILY 01/24/18 10/26/18 History ondansetron HCl [Zofran] 8 mg PO TID PRN #30 tab 06/28/18 10/26/18 Rx quetiapine [Seroquel] 12.5 mg PO QHS 06/28/18 10/26/18 History fluticasone propionate See Label Instructions .ROUTE 08/03/18 10/26/18 Rx .COMPLEX 7 Days #1 unit nystatin 1 applic TOPICAL TID #60 gm 08/10/18 10/26/18 Rx fluconazole 100 mg PO DAILY 60 Days #60 tab 10/05/18 10/26/18 Rx loteprednol etabonate [Lotemax] 1 drp EYE-BOTH QID 10/05/18 10/26/18 History phenazopyridine 100 mg PO TID PRN 30 Days #90 tab 11/09/18 Rx Objective - Resuscitation Status Resuscitation Status: Full Code - Height/Weight Height/Weight: Height 5 ft 2.6 in Weight 96.071 kg BSA for Today's Weight 2.05 - Vital Signs Vital Signs: 11/09/18 09:59 Temperature 98.3 F Pulse Rate [Left Brachial] 99 H Respiratory Rate 16 Blood Pressure [Left Arm] 138/85 02 Sat by Pulse Oximetry 98 - Pain Generalized Pain Intensity: 4 Groin Pain Intensity: 2 Chest Pain Intensity: 4 - Emotional Needs Assessment Emotional Needs Assessment: Emotional Needs Identified? No Distress Screening Total 0 Support System Spouse,Family Expressed Feelings Anxiety - ECOG Performance Status ECOG Score: 1 Physical Exam - Constitutional no acute distress, average body habitus, obese, no chronically ill appearing, cooperative - Routine HEENT Exam Head: normocephalic, atraumatic, no cushingoid faces Eye: EOMI, PERRL, no conjunctival injection, no scleral icterus ENT: mucous membranes moist, oropharynx clear, dentition normal - Routine Neck Exam supple, full ROM, no lymphadenopathy, no thyromegaly, no tenderness - Routine Chest/Breast/Axilla Exam Chest wall: no tenderness, no mass, other - Resolved crusting over right chest wall port without surrounding erythema or skin breakdown. Will follow closely. Breast: no induration, no swelling, scars, right mastectomy, left mastectomy, other - Resolved tenderness over her bilateral chest wall to palpation without palpable masses. Incisions are well-healed from bilateral mastectomy Axillae: no lymphadenopathy, no mass, no swelling - no upper extremity lymphedema, no suppurative lesions - Routine Respiratory Exam no accessory muscle use, CTA bilaterally, no respiratory distress, no rhonchi, no wheezes, no crackles, no distant breath sounds, no diminished air movement - Routine Cardiovascular Exam RRR, no murmur, no irregularly irregular - Routine Abdominal Exam soft, normoactive bowel sounds, no tenderness, no distended, no organomegaly, nomass - Routine Rectal Exam Visual: Present: tenderness, palpable mass - Routine Exam External: Present: normal urethra appearance, other - No erythema or epidermal disruption of inguinal creases, no drainage or erythema, persistent fullness posterior labia/perianal area on right. Absent: erythema - Resolved labial erythema from prior visit, swelling - improved from last visit, tenderness - resolution of prior tenderness, no fluctuance over labia majora--mild ulcerationwithout erythema, lesions, ecchymosis, discharge Groin: Absent: inguinal lymphadenopathy, tenderness, swelling Perineal: Present: erythema, tenderness - Routine Extremities Exam Present: full ROM, pulses intact. Absent: cyanosis, clubbing, edema, calf tenderness, tenderness - Routine Back/Spine/Pelvis Exam Back/Spine: Present: full ROM. Absent: CVA tenderness, paraspinal tenderness, vertebral tenderness - Routine Skin Exam Present: intact. Absent: erythema, petechiae, urticaria, jaundice, rash, ecchymosis - Routine Neurological Exam Present: alert, oriented X3, CN II-XII intact, moving all extremities, vision grossly intact, hearing grossly intact, normal speech. Absent: sensory deficit,motor deficit, abnormal gait, tremors - Routine Psychiatric Exam Present: normal affect, normal thought process, cooperative. Absent: depressed,anxious Results - Labs Labs: Diagram of Most Recent CBC and CMP 11/08/18 10:05 11/08/18 10:05 Labs - Last 7 Days 11/08/18 10:05: PHA Creatinine Clear [id number], Sodium 136, Potassium 3.6, Chloride 102, Carbon Dioxide 22.9, BUN 11, Creatinine 0.78, Est GFR ( Amer) > 60, Est GFR (Non-Af Amer) > 60, Glucose 237 H, Calcium 9.1, Total Bilirubin 0.3, AST 27, ALT 18, Alkaline Phosphatase 54, Total Protein 6.3, Albumin 3.8, Globulin 2.5, Albumin/Globulin Ratio 1.5 11/08/18 10:05: WBC 4.1 L, Corrected WBC 4.1, RBC 4.13, Hgb 12.7, Hct 37.0, MCV 89.5, MCH 30.7, MCHC 34.3, RDW 15.0, Plt Count 254, MPV 7.2, Neut % (Auto) 61.7,Lymph % (Auto) 19.3, [place] % (Auto) 6.5, Eos % (Auto) 11.5, Baso % (Auto) 1.0, Neut # (Auto) 2.5, Lymph # (Auto) 0.8 L, [place] # (Auto) 0.3, Eos # (Auto) 0.5 H, Baso # (Auto) 0.0, Nucleated RBC % (auto) 0.1 11/05/18 09:57: PHA Creatinine Clear [id number], Sodium 139, Potassium 4.0, Chloride 104, Carbon Dioxide 26.0, BUN 22, Creatinine 0.72, Est GFR ( Amer) > 60, Est GFR (Non-Af Amer) > 60, Glucose 133 H, Calcium 9.2, Total Bilirubin 0.7, AST 26, ALT 20, Alkaline Phosphatase 51, Total Protein 6.2, Albumin 3.9, Globulin 2.3, Albumin/Globulin Ratio 1.7 11/05/18 09:57: WBC 5.6, Corrected WBC 5.6, RBC 4.11, Hgb 12.6, Hct 37.0, MCV 89.9, MCH 30.6, MCHC 34.0, RDW 15.2, Plt Count 272, MPV 7.2, Neut % (Auto) 71.5,Lymph % (Auto) 16.3, [place] % (Auto) 3.7, Eos % (Auto) 7.5, Baso % (Auto) 1.0, Neut # (Auto) 4.0, Lymph # (Auto) 0.9 L, [place] # (Auto) 0.2, Eos # (Auto) 0.4, Baso # (Auto) 0.1, Nucleated RBC % (auto) 0.3 11/05/18 09:55: Urine Color Yellow, Urine Appearance Clear, Urine pH 5.0, Ur Specific [place] 1.025, Urine Protein Negative, Urine Glucose (UA) Normal, UrineKetones Negative, Urine Occult Blood Trace H, Urine Nitrite Negative, Urine Bilirubin Negative, Urine Urobilinogen Normal, Ur Leukocyte Esterase 4+ H, UrineRBC 1-2, Urine WBC Innumerable H, Ur Squamous Epith Cells 1-2, Urine Bacteria None seen, Hyaline Casts None seen, Urine Mucus 1+ A - Microbiology Micro: 11/05/18 09:55 Urine - Clean-Voided Midstream Urine Culture - Final >100,000 colonies/ml mixed bacterial skin contaminants 2 Days - Impressions ITS Impressions Bone Scan Nuclear Medicine 07/11/18 10:56 IMPRESSION: Postoperative changes are noted in the right chest wall. No acute intra-abdominal or thoracic pathology. Uncomplicated colonic diverticulosis. 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 No evidence of metastatic disease. Degenerative changes are present in the shoulders, hips, right knee, and feet bilaterally. No focal abnormal radiotracer accumulation to suggest bony metastatic disease. Impression dictated by: Selvin Devine M.D.07/11/2018 5:12 PM Dictation Location: [facility] Any impression(s) listed above is documentation that was entered by the reading physician into a diagnostic report(s) for Maria M Mckeon. I have reviewed the report(s) and am incorporating any findings in the treatment plan of this patient where applicable. Assessment and Plan (1) Cancer of right breast, stage 2 This is a 48 yo female who discovered a right upper outer quadrant breast mass and underwent bilateral mastectomy 05/07/2018. Final pathology returned as a pT2(4.2cm) pN0 (only 4 lymph nodes excised--possibly less nodes due to prior hydradenitis suppuritiva surgery) M0. The tumor is moderately differentiated estrogen receptor positive (0%), progesterone negative (0%), Her2 negative neoplasm. Menopausal status is somewhat unclear with IUD in place--this has been removed since start of chemo. Patient does not have a history of tubal ligation. She continues Lupron injections while on chemotherapy and may continue for 2-3 years. Since tumor is < 5cm, negative lymph nodes, and negative margins, she will not require postmastectomy radiation therapy. I sent the tumor specimen for Oncotype Dx which returned with high risk recurrence score of 47 consistent with29% recurrence at 10 years with hormonal therapy alone. Baseline Echo showed normal ejection fraction, however a 2 cm hepatic cyst of unclear etiology was seen on echo. CT of chest abdomen and pelvis + bone scan due to chest wall pain,cough, an indeterminate liver cyst seen on echo were ordered--all were found to be unremarkable. No metastatic disease on bone scan. ----- ----- Seen today for routine toxicity check after completing 4 cycles dose dense AC, now here for cycle 9 of 12 weekly paclitaxel. She is tolerating this very well;only complaint today is mild intermittent peripheral numbess and labial swelling/perineal ulcerations due to hidradenitis suppurativa which was initiallytreated with antibiotics. She now has improved swelling on oral Diflucan 100 mgdaily. She may remain on oral Diflucan 100mg daily for the remainder of chemotherapy. She has had recurrent dysuria with negative urine cultures but mixed positive skin contaminant growth. I recommended reevaluation by ICHTHYOLOGIST for her dysuria and to determine other potential etiologies of dysuria. I am also giving her a trial of Pyridium 100 mg 3 times daily as needed for remainder of chemotherapy as this urgency and dysuria may be related to Taxol neuropathy. She has stable mild fatigue. No issues with nausea/vomiting or diarrhea. Laboratories unremarkable. Reinforced neutropenic precautions. Patient to return to the clinic in 3 weeks for toxicity follow-up prior to week 12 of 12 weekly Taxol infusions. We may coordinate follow-up imaging at that time for indeterminate hepatic cyst. She knows to call us sooner with any questions/concerns. This is a moderate complexity visit over 30 minutes (2) Estrogen receptor positive status [ER+] Hormonal therapy will follow chemotherapy as noted above. (3) Hidradenitis suppurativa 3 months ago she noted left groin swelling with normal CBC. Patient has known history of hidradenitis suppurativa and known sulfa allergy. We initially treated her for possible MRSA with doxycycline 100 mg twice daily for 1 week and advised to go to emergency department if worsening of swelling or pain. She followed up with her primary physician who prescribed topical antifungal therapy but she had ongoing swelling and drainage of this area without erythema. She had some improvement with Diflucan 100 mg daily--will continue for the remainder of chemotherapy. I advised evaluation by ICHTHYOLOGIST for persistent dysuria symptoms. Will follow closely with future examinations. No change in scarring in bilateral axillae or evidence of recurrence in that region. 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 She has already had bilateral mastectomy but will be speaking with family members regarding recommendations for screening for this breast cancer associated gene. 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 At this time she would like to continue current dose intensity but may decrease dose if she has functional changes related to paclitaxel. (6) Dysuria Recurrent dysuria with multiple urinalyses showing skin contaminants on culture. Sending to ICHTHYOLOGIST for further evaluation and trial of Pyridium 100 mg 3 times daily as needed. (7) Encounter for antineoplastic chemotherapy Proceed with cycle 9 day 1 weekly paclitaxel today--continue 60% dose reduction. - Chemo Plan Number of Cycles: 12 - weekly paclitaxel Goal of Treatment: Curative - Time with Patient Total Time Spent with Patient: 30 min Coordination of Care & Counseling Time: Greater than 50% of time spent with patient was for coordination of care (as documented) and [id number] counseling of patient and/or family. Dictated By: Tanya Washington MD DD/ [id number] Signed By: <Electronically signed by MD Tanya Washington> 11/09/18 1221 [facility] Work Phone: [phone] 464-790204-08-2019 Hospital Discharge instructionsAmbulatory Orders* Urinalysis Time Frame: 11/05/18, Location: Determined By Patient * Urine Culture Time Frame: 09/04/18, Location: Determined By Patient * Urinalysis Time Frame: 09/04/18, Location: Determined By Patient [facility] Work Phone: [phone] 575-356503-09-2019 Progress note Author Tanya Washington [facility] October 06, 2018 3:38pm Note Date/Time October 05, 2018 10:5 0[facility] [place] [address] Hem/Onc Follow Up Note - OP Signed Patient: Maria M Mckeon MR#: [id number] : 1970 Acct:[id number] Age/Sex: 48 / F Type: REG RCR Copies to: Driss Mendoza MD~ Subjective Date/Time of Service: Date of Service: 10/05/2018 Time of Service: 10:48 Chief Complaint: Patient is here for follow up visit before week five paclitaxel. Patient complains of fatigue and slight intermittent numbness in finger tips two days after treatment. Patient complains of slight burning with urination. - Diagnosis DIAGNOSIS: 1. Right upper outer quadrant [id number] (4.2 cm primary, 4 LN neg), moderately differentiated adenocarcinoma, ER 90%, [place] 0%, Her2 not overexpressed --Sent Oncotype DX on specimen. Reviewed with patient 06/28/2018. Recurrence score returned high risk 47 (correlating to 10 -year recurrence of 29%). Counseled patient for dense dense AC Taxol chemotherapy. --Notes some shortness of breath, intermittent cough and chest wall pain. Had normal baseline echo but 2 cm cyst seen in the liver. Ordering staging bone scan with CT of chest abdomen pelvis due to symptoms prior to chemotherapy. 2. Bilateral mastectomy with axillary lymph node dissection 05/07/2018 3. History of multiple skin squamous cell carcinoma excisions, most recently 12/2017 4. History of resection of hydradenitis suppuritiva bilateral axillae --during chemotherapy, she had groin and perineal hidradenitis suppuritiva--improved with antibiotics and antifungal therapy, but maintaining oral Diflucan until the end of chemotherapy 5. HTN 6. Hypothyroidism 7. Chronic sinusitis 8. IBS/diverticulosis HPI: The patient presents for routine toxicity check during adjuvant therapy (here for cycle 5 of 12 weekly Taxol. She previously completed 4 cycles of dose denseAC. Cycle 1, day 1: 07/06/2018. 09/07/2018 was cycle 1 day 1 of weekly paclitaxel 80 mg/m? IV for 12 weeks. She maintains Lupron monthly with chemotherapy for ovarian suppression, as the patient had her IUD removed. No breakthrough bleeding noted. No fever/chills, chest pain, cough, SOB, abdominal pain, diarrhea/constipation, skin rash or lower extremity edema. --She recently notes some erythema and mild drainage of the bilateral eyes and is following up with ophthalmology this week. No changes in vision related to this. Symptoms are stable. --She notes intermittent numbness of fingers and toes that does not interfere with function. Will dose reduce if worsening/functional symptoms. --At follow-up in early July, she noted swelling over the left labia for 3-4 days, associated with mild discomfort but no significant pain or fluctuance. There also had mild skin breakdown in the bilateral inguinal creases. This was consistent with recurrence of her hidradenitis suppurativa and she completed antibiotics for this and was maintained on topical antifungal medication. No need for drainage of abscess or imaging as this was nontender and no fluctuance was noted. She had persistent swelling and drainage with an ulcerated area overher left labia. This was a fungal complication of her hidradenitis suppurativa and ulcerations are improved but not completely resolved. No surrounding erythema or pain. Due to ongoing swelling and ulceration we will continue Diflucan for the remainder of her chemotherapy. She has persistent mild fatigue and she received an [id number] for further chemotherapy and lab draws. No erythema, tenderness, or symptoms of infection. Prior crusting over infusion port has resolved. She has continued mild breakdown in the bilateral inguinal creases which also may be associated with cutaneous candidiasis. 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 This has been associated with moderate penetrancefor breast cancer and the patient was recommended for familial counseling for other family members that may need to be tested for this. It also is associatedwith ataxia and telangiectasia but is not associated with her skin variance for recurrent infection (hidradenitis suppurativa). The patient has had bilateral mastectomy and no other surgical therapy is recommended. PREVIOUS HISTORY: This is a 48 year old lady who found a large mass in her right upper outer quadrant breast in March. She was immediately referred for mammogram and ultrasound and subsequent US guided needle biopsy 04/20/2018 of clinical 5 cmmass at 10 o'clock--this revealed an invasive mammary carcinoma, grade 2-3, ER 95%, [place] 0%, Her2 negative. She did not see medical oncology or discuss breast conserving therapy or immediate reconstruction with her surgeon. On 05/07/2018, she underwent right modified radical mastectomy with axillary lymph node dissection (no attempt for sentinel lymph node) and left simple mastectomy with axillary dissection. Pathology showed right breast with 4.2cm mass, 4 lymph nodes negative--ER/[place]/Her2 unchanged. No cancer in left breast or 3 lymph nodes. Bone scan and CT scan of the chest, abdomen/pelvis were performed at baseline due to some persistent chest wall pain after mastectomy but she was not found tohave any evidence of metastatic disease. 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 She has tolerated all cycles of AC reasonably well with no significant nausea. She noted dysuria during cycle 3 and subsequent urinalysis showed 4 + leukocyte esterase and 20-49 Urine WBC's. Subsequent culture was negative, but patient was started on prophylactic antibiotics due to immunosuppression. Her dysuria symptoms completely resolved. - Summary of Therapies Summary of Therapies: 1. Bilateral mastectomy with axillary lymph node dissection 05/07/2018 2. Oncotype Dx returned with high risk recurrence score and patient was counseled on 06/28/2018 regarding adjuvant chemotherapy with dose dense AC/paclitaxel. Completing staging with CT chest abdomen pelvis and bone scan for postmastectomy chest wall pain, cough, and liver cyst seen on echocardiogram. Baseline cardiac function is normal. 3. Started chemotherapy: 07/06/2018 Dose-dense AC followed by weekly paclitaxel (Category 1) Day 1: Doxorubicin 60mg/m2 IV Day 1: Cyclophosphamide 600mg/m2 IV. Repeat cycle every 14 days for 4 cycles, followed by: Day 1: Paclitaxel 80mg/m2 via 1-hour IV infusion weekly for 12 weeks. Subjective/ROS - Narrative: ROS Details: All systems reviewed & no additional complaints except as documented Constitutional: fair state of general health, able to conduct usual activities, normal activity level, normal exercise tolerance, no weight loss, no weight gain Eyes: no double vision, bilateral eye redness with mild drainage over the last week for which she will be following with her roller gold leaf next week. No vision change. Ears, nose, mouth, throat: no headaches, no vertigo, no lightheadedness, no nasal congestion, no rhinorrhea, no epistaxis, no gingival bleeding, no sore throat Cardiovascular: no chest pain, no palpitations, no syncope, no dyspnea on exertion, no edema, no heart murmur Respiratory: Negative for shortness of breath with exertion, no wheezing, no cough, no sputum production, no respiratory infections, no TB exposure, positivefor intermittent chest wall pain over her mastectomy site. Gastrointestinal: no change in appetite, no dysphagia, no indigestion, no abdominal pain, no nausea, no vomiting, no jaundice, no constipation, no diarrhea, no abnormal stools, no change in bowel habits Genitourinary: no urgency, no frequency, no dysuria, no hematuria, no oliguria, no stones, no urinary retention. Positive left labial swelling and mild discomfort month consistent with hidradenitis suppurativa--superficial ulceration and drainage by her primary physician. No inguinal adenopathy. Musculoskeletal: no pain, no swelling, no redness Integumentary: other - multiple healed excisions of skin cancers, no rash, no bleeding or bruising, no itching--left labial swelling with ulceration as noted above with skin breakdown in the bilateral inguinal creases, no surrounding erythema--mild improvement but persistence from last f/u. Integumentary (breast): incision site - well healed bilateral mastectomy, mild tenderness over bilateral chest wall without palpable masses, no swelling--she does note some disruption of her right axillary incision and is treating this with topical colloid therapy that she received from wound clinic. Neurological: no tremor, no incoordination, mild intermittent paresthesias--no interference with function, no memory loss Psychiatric: no anxiety, no depression Endocrine: no hormone therapy, no heat intolerance Hematologic/Lymphatic: no anemia, no enlarged lymph nodes Allergic/Immunologic: no reaction to drugs ROS Details: All systems reviewed & no additional complaints except as documented ONC [facility] - General Attestation statement: The following information was validated with the patient. Source: Old Records Reviewed - Medical History Medical history: Cancer, Hypertension, Thyroid Disease - Isra's thyroiditis Past Medical History Comments: Hypothyroid, skin cancer, full dentures due to bone loss, plantar fasciitis, IBS, diverticulitis, hidranitis suppuritiva - Surgical History Surgical history female: cancer surgery Surgical History Comment: x3 skin cancer removal squamous cell, bilt mastectomy 05/07/2018, sinus surgery 2011, excision Hidradenitis suppurative, ecx vaginal lump, all teeth were extracted - have dentures November 2015 - Cardiac History Patient on Systems Test Engineer: No Does Patient Have Pacemaker?: No - Psych History Psychiatric history: anxiety, depression - ENVIRONMENTAL DIRECTOR Hx : 1 Para: 1 ENVIRONMENTAL DIRECTOR Comments: Has paraguard copper IUD does not have periods anymore--removedprior to chemotherapy - Family History Family History: CAD/[place], cancer, diabetes, hypertension - Genetics Would you like a referral to genetics?: No - Social History History of Any Tobacco Product Use?: No Do you ever drink alcohol (including beer or wine)?: Yes If yes, how many days did you drink in the past week?: 0 Did you previously drink alcohol, but have since quit?: No Substance Use Type: None Home Medications & Allergies Allergies Allergy/AdvReac Type Severity Reaction Status Date / Time Sulfa (Sulfonamide Allergy Hives Verified 08/24/18 14:49 Antibiotics) Home Medications Medication Instructions Recorded Confirmed Type levothyroxine [Synthroid] 44 mcg PO BID 01/24/18 10/05/18 History liothyronine 5 mcg PO BID 01/24/18 10/05/18 History lisinopril-hydrochlorothiazide 1 tab PO DAILY 01/24/18 10/05/18 History metformin 500 mg PO DAILY 01/24/18 10/05/18 History paroxetine HCl 40 mg PO DAILY 01/24/18 10/05/18 History ondansetron HCl [Zofran] 8 mg PO TID PRN #30 tab 06/28/18 10/05/18 Rx quetiapine [Seroquel] 12.5 mg PO QHS 06/28/18 10/05/18 History fluticasone propionate See Label Instructions .ROUTE 08/03/18 10/05/18 Rx .COMPLEX 7 Days #1 unit nystatin 1 applic TOPICAL TID #60 gm 08/10/18 10/05/18 Rx fluconazole 100 mg PO DAILY 60 Days #60 tab 10/05/18 Rx loteprednol etabonate [Lotemax] 1 drp EYE-BOTH QID 10/05/18 10/05/18 History Objective - Resuscitation Status Resuscitation Status: Full Code - Height/Weight Height/Weight: Height 5 ft 2.5 in Weight 96.162 kg BSA for Today's Weight 2.06 - Vital Signs Vital Signs: 10/05/18 10:36 Temperature 97.9 F Pulse Rate [Left Brachial] 101 H Respiratory Rate 20 Blood Pressure [Left Arm] 136/83 02 Sat by Pulse Oximetry 98 - Pain Generalized Pain Intensity: 4 Chest Pain Intensity: 4 Groin Pain Intensity: 3 - Emotional Needs Assessment Emotional Needs Assessment: Emotional Needs Identified? No Distress Screening Total 0 Support System Spouse - ECOG Performance Status ECOG Score: 1 Physical Exam - Constitutional no acute distress, average body habitus, obese, no chronically ill appearing, cooperative - Routine HEENT Exam Head: normocephalic, atraumatic, no cushingoid faces Eye: EOMI, PERRL, no conjunctival injection, no scleral icterus ENT: mucous membranes moist, oropharynx clear, dentition normal - Routine Neck Exam supple, full ROM, no lymphadenopathy, no thyromegaly, no tenderness - Routine Chest/Breast/Axilla Exam Chest wall: no tenderness, no mass, other - Resolved crusting over right chest wall port without surrounding erythema or skin breakdown. Will follow closely. Breast: no induration, no swelling, scars, right mastectomy, left mastectomy, other - Mild tenderness over her bilateral chest wall to palpation without palpable masses. Incisions are well-healed from bilateral mastectomy Axillae: no lymphadenopathy, no mass, no swelling - no upper extremity lymphedema, no suppurative lesions - Routine Respiratory Exam no accessory muscle use, CTA bilaterally, no respiratory distress, no rhonchi, no wheezes, no crackles, no distant breath sounds, no diminished air movement - Routine Cardiovascular Exam RRR, no murmur, no irregularly irregular - Routine Abdominal Exam soft, normoactive bowel sounds, no tenderness, no distended, no organomegaly, [place] - Routine Rectal Exam Visual: Present: tenderness, palpable mass - Routine Exam External: Present: normal urethra appearance, erythema - mild left labia majora only, tenderness - resolution of prior tenderness, no fluctuance over labia majora--mild ulceration without erythema, other - Epidermal disruption in left labial crease without drainage or significant erythema. Absent: swelling - improved from last visit, lesions, ecchymosis, discharge Groin: Absent: inguinal lymphadenopathy, tenderness, swelling Perineal: Present: erythema, tenderness - Routine Extremities Exam Present: full ROM, pulses intact. Absent: cyanosis, clubbing, edema, calf tenderness, tenderness - Routine Back/Spine/Pelvis Exam Back/Spine: Present: full ROM. Absent: CVA tenderness, paraspinal tenderness, vertebral tenderness - Routine Skin Exam Present: intact. Absent: erythema, petechiae, urticaria, jaundice, rash, ecchymosis - Routine Neurological Exam Present: alert, oriented X3, CN II-XII intact, moving all extremities, vision grossly intact, hearing grossly intact, normal speech. Absent: sensory deficit,motor deficit, abnormal gait, tremors - Routine Psychiatric Exam Present: normal affect, normal thought process, cooperative. Absent: depressed,anxious Results - Labs Labs: Diagram of Most Recent CBC and CMP 10/04/18 09:52 10/04/18 09:52 Labs - Last 7 Days 10/04/18 09:52: PHA Creatinine Clear [id number], Sodium 136, Potassium 3.7, Chloride 103, Carbon Dioxide 25.0, BUN 15, Creatinine 0.69, Est GFR ( Amer) > 60, Est GFR (Non-Af Amer) > 60, Glucose 135 H, Calcium 9.0, Total Bilirubin 0.4, AST 24, ALT 17, Alkaline Phosphatase 54, Total Protein 6.2, Albumin 3.7, Globulin 2.5, Albumin/Globulin Ratio 1.5 10/04/18 09:52: WBC 4.1 L, Corrected WBC 4.1, RBC 3.77, Hgb 11.7 L, Hct 33.8 L, MCV 89.5, MCH 31.0, MCHC 34.6, RDW 17.4 H, Plt Count 303, MPV 7.1, Neut % (Auto)62.2, Lymph % (Auto) 19.3, [place] % (Auto) 4.9, Eos % (Auto) 12.4, Baso % (Auto) 1.2, Neut # (Auto) 2.5, Lymph # (Auto) 0.8 L, [place] # (Auto) 0.2, Eos # (Auto) 0.5 H, Baso # (Auto) 0.1, Nucleated RBC % (auto) 0.2 09/28/18 13:07: Urine Color Yellow, Urine Appearance Cloudy A, Urine pH 5.0, Ur Specific [place] 1.018, Urine Protein Negative, Urine Glucose (UA) Normal, UrineKetones Negative, Urine Occult Blood Trace H, Urine Nitrite Negative, Urine Bilirubin Negative, Urine Urobilinogen Normal, Ur Leukocyte Esterase 4+ H, UrineRBC 0-1, Urine WBC Innumerable H, Ur Squamous Epith Cells 3-4 H, Urine Bacteria None seen, Hyaline Casts 0-8 - Impressions No new imaging for review. ITS Impressions Bone Scan Nuclear Medicine 07/11/18 10:56 IMPRESSION: Postoperative changes are noted in the right chest wall. No acute intra-abdominal or thoracic pathology. Uncomplicated colonic diverticulosis. 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 No evidence of metastatic disease. Degenerative changes are present in the shoulders, hips, right knee, and feet bilaterally. No focal abnormal radiotracer accumulation to suggest bony metastatic disease. Impression dictated by: Selvin Devine M.D.07/11/2018 5:12 PM Dictation Location: [facility] Any impression(s) listed above is documentation that was entered by the reading physician into a diagnostic report(s) for Maria M Mckeon. I have reviewed the report(s) and am incorporating any findings in the treatment plan of this patient where applicable. Assessment and Plan (1) Cancer of right breast, stage 2 This is a 48 yo female who discovered a right upper outer quadrant breast mass and underwent bilateral mastectomy 05/07/2018. Final pathology returned as a pT2(4.2cm) pN0 (only 4 lymph nodes excised--possibly less nodes due to prior hydradenitis suppuritiva surgery) M0. The tumor is moderately differentiated estrogen receptor positive (0%), progesterone negative (0%), Her2 negative neoplasm. Menopausal status is somewhat unclear with IUD in place--this has been removed since start of chemo. Patient does not have a history of tubal ligation. She will begin Lupron injections while on chemotherapy and may continue for 2-3 years. Since tumor is < 5cm, negative lymph nodes, and negative margins, she will not require postmastectomy radiation therapy. I sent the tumor specimen for Oncotype Dx which returned with high risk recurrence score of 47 consistent with29% recurrence at 10 years with hormonal therapy alone. Baseline Echo showed normal ejection fraction, however a 2 cm hepatic cyst of unclear etiology was seen on echo. CT of chest abdomen and pelvis + bone scan due to chest wall pain,cough, an indeterminate liver cyst seen on echo were ordered--all were found to be unremarkable. No metastatic disease on bone scan. ----- ----- Seen today for routine toxicity check after completing 4 cycles dose dense AC, now here for cycle 4 of 12 weekly paclitaxel. She is tolerating this very well;only complaint today is mild intermittent peripheral numbess and continued labial swelling/perineal ulcerations due to hidradenitis suppurativa which was initially treated with antibiotics. She now has improved swelling on oral Diflucan 100 mg daily. I placed 2 months of refills so she may remain on oral Diflucan 100mg daily for the remainder of chemotherapy. At this time she does not require referral to ICHTHYOLOGIST for I&D. She has stable mild fatigue. No issues with nausea/vomiting or diarrhea. Laboratories unremarkable. Reinforced neutropenic precautions. Patient to return to the clinic in 4 weeks for toxicity follow-up prior to week 5 of 12 weekly Taxol infusions. She knows to call us sooner with any questions/concerns. This is a moderate complexity visit over 30 minutes (2) Estrogen receptor positive status [ER+] Hormonal therapy will follow chemotherapy as noted above. (3) Hidradenitis suppurativa 2 months ago she noted left groin swelling with normal CBC. Patient has known history of hidradenitis suppurativa and known sulfa allergy. We initially treated her for possible MRSA with doxycycline 100 mg twice daily for 1 week and advised to go to emergency department if worsening of swelling or pain. She followed up with her primary physician who prescribed topical antifungal therapy but she had ongoing swelling and drainage of this area without erythema. She had some improvement with Diflucan 100 mg daily--will continue for the remainder of chemotherapy. We will consider evaluation by ICHTHYOLOGIST if persistent symptoms for possible I&D if no resolution at the end of chemotherapy. Will follow closely with future examinations. No change in scarring in bilateral axillae or evidence of recurrence in those regions. 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 She has already had bilateral mastectomy but will be speaking with family members regarding recommendations for screening for this breast cancer associated gene. (5) Encounter for antineoplastic chemotherapy Proceed with cycle 5 day 1 weekly paclitaxel today. - Chemo Plan Chemo Plan (Dose, Rate, Freq): Completed 4 cycles dose dense AC, now receiving weekly paclitaxel 80 mg/m? x 12 weeks starting 09/07/2018. Hormonal therapy following chemotherapy. Number of Cycles: 12 - weekly paclitaxel Goal of Treatment: Curative - Time with Patient Total Time Spent with Patient: 30 min Coordination of Care & Counseling Time: Greater than 50% of time spent with patient was for coordination of care (as documented) and [id number] counseling of patient and/or family. Dictated By: Tanya Washington MD DD/ [id number] Signed By: <Electronically signed by MD Tanya Washington> 10/06/18 1538 [facility] Work Phone: [phone] Progress note Author Tanya Washington [facility] September 07, 2018 5:47pm Note Date/Time September 07, 2018 9 :44am [facility] [place] [id number] Hem/Onc Follow Up Note - OP Signed Patient: Maria M Mckeon MR#: [id number] : 1970 Acct:[id number] Age/Sex: 48 / F Type: REG RCR Copies to: Driss Mendoza Kim E MD~ Subjective Date/Time of Service: Date of Service: 09/07/2018 Time of Service: 09:43 Chief Complaint: Patient is here for follow up before starting weekly paclitaxel. Patient is currently on antibiotic for UTI and family doctor has prescribed anti fungal cream for skin condition. - Diagnosis DIAGNOSIS: 1. Right upper outer quadrant [id number] (4.2 cm primary, 4 LN neg), moderately differentiated adenocarcinoma, ER 90%, [place] 0%, Her2 not overexpressed --Sent Oncotype DX on specimen. Reviewed with patient 06/28/2018. Recurrence score returned high risk 47 (correlating to 10 -year recurrence of 29%). Counseled patient for dense dense AC Taxol chemotherapy. --Notes some shortness of breath, intermittent cough and chest wall pain. Had normal baseline echo but 2 cm cyst seen in the liver. Ordering staging bone scan with CT of chest abdomen pelvis due to symptoms prior to chemotherapy. 2. Bilateral mastectomy with axillary lymph node dissection 05/07/2018 3. History of multiple skin squamous cell carcinoma excisions, most recently 12/2017 4. History of resection of hydrenadenitis suppuritiva bilateral axillae 5. HTN 6. Hypothyroidism 7. Chronic sinusitis 8. IBS/diverticulosis HPI: The patient presents for routine toxicity check during adjuvant therapy. She has now completed 4 cycles of dose dense AC. Cycle 1, day 1: 07/06/2018. Today(09/07/2018) she is here for day 1 of weekly paclitaxel 80 mg/m? IV for 12 weeks. She maintains Lupron monthly with chemotherapy for ovarian suppression, as the patient had her IUD removed. She has tolerated all cycles of AC reasonably wellwith no significant nausea. She noted dysuria during cycle 3 and subsequent urinalysis showed 4 + leukocyte esterase and 20-49 Urine WBC's. Subsequent culture was negative, but patient was started on prophylactic antibiotics due toimmunosuppression. Her dysuria symptoms have completely resolved. No fever/chills, chest pain, cough, SOB, abdominal pain, diarrhea/constipation, skin rash or lower extremity edema. --She recently notes some erythema and mild drainage of the bilateral eyes and is following up with ophthalmology this week. No changes in vision related to this. --At last follow-up in early July, she noted swelling over the left labia for3-4 days, associated with mild discomfort but no significant pain or fluctuance. There also had mild skin breakdown in the bilateral inguinal creases. This wasconsistent with recurrence of her hidradenitis suppurativa and she completed antibiotics for this and was maintained on topical antifungal medication. No need for drainage of abscess or imaging as this was nontender and no fluctuance was noted. She has followed up with her primary physician who placed her on topical antifungals, but she has persistent swelling and drainage with an ulcerated area over her left labia. This is felt to be a fungal complication ofher hidradenitis suppurativa and we discussed a 1 week trial of Diflucan 100 mg daily. If this clears up her symptoms will keep her on topical therapy for prophylaxis, however if she has ongoing swelling and ulceration we will likely continue Diflucan and refer her to ICHTHYOLOGIST. She has persistent mild fatigue and she received an [id number] for further chemotherapy and lab draws. She continues to have mild crusting over her infusion port and we are following this closely for signs or symptoms of infection. This may also improve with her Diflucan therapy. She has continued mild breakdown in the bilateral inguinal creases which also may be associated with cutaneous candidiasis. 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 This has been associated with moderate penetrance for breast cancer and the patient was recommended for familial counseling for other family members that may need to be tested for this. It also is associated with ataxia and telangiectasia but is not associated with herskin variance for recurrent infection (hidradenitis suppurativa). The patient has had bilateral mastectomy and no other surgical therapy is recommended. PREVIOUS HISTORY: This is a 48 year old lady who found a large mass in her right upper outer quadrant breast in March. She was immediately referred for mammogram and ultrasound and subsequent US guided needle biopsy 04/20/2018 of clinical 5 cmmass at 10 o'clock--this revealed an invasive mammary carcinoma, grade 2-3, ER 95%, NY 0%, Her2 negative. She did not see medical oncology or discuss breast conserving therapy or immediate reconstruction with her surgeon. On 05/07/2018, she underwent right modified radical mastectomy with axillary lymph node dissection (no attempt for sentinel lymph node) and left simple mastectomy with axillary dissection. Pathology showed right breast with 4.2cm mass, 4 lymph nodes negative--ER/[place]/Her2 unchanged. No cancer in left breast or 3 lymph nodes. Bone scan and CT scan of the chest, abdomen/pelvis were performed at baseline due to some persistent chest wall pain after mastectomy but she was not found tohave any evidence of metastatic disease. 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 - Summary of Therapies Summary of Therapies: 1. Bilateral mastectomy with axillary lymph node dissection 05/07/2018 2. Oncotype Dx returned with high risk recurrence score and patient was counseled on 06/28/2018 regarding adjuvant chemotherapy with dose dense AC/paclitaxel. Completing staging with CT chest abdomen pelvis and bone scan for postmastectomy chest wall pain, cough, and liver cyst seen on echocardiogram. Baseline cardiac function is normal. 3. Started chemotherapy: 07/06/2018 Dose-dense AC followed by weekly paclitaxel (Category 1) Day 1: Doxorubicin 60mg/m2 IV Day 1: Cyclophosphamide 600mg/m2 IV. Repeat cycle every 14 days for 4 cycles, followed by: Day 1: Paclitaxel 80mg/m2 via 1-hour IV infusion weekly for 12 weeks. Subjective/ROS - Narrative: ROS Details: All systems reviewed & no additional complaints except as documented Constitutional: fair state of general health, able to conduct usual activities, normal activity level, normal exercise tolerance, no weight loss, no weight gain Eyes: no double vision, bilateral eye redness with mild drainage over the last week for which she will be following with her roller gold leaf next week. No vision change. Ears, nose, mouth, throat: no headaches, no vertigo, no lightheadedness, no nasal congestion, no rhinorrhea, no epistaxis, no gingival bleeding, no sore throat Cardiovascular: no chest pain, no palpitations, no syncope, no dyspnea on exertion, no edema, no heart murmur Respiratory: Negative for shortness of breath with exertion, no wheezing, no cough, no sputum production, no respiratory infections, no TB exposure, positivefor intermittent chest wall pain over her mastectomy site. Gastrointestinal: no change in appetite, no dysphagia, no indigestion, no abdominal pain, no nausea, no vomiting, no jaundice, no constipation, no diarrhea, no abnormal stools, no change in bowel habits Genitourinary: no urgency, no frequency, no dysuria, no hematuria, no oliguria, no stones, no urinary retention. Positive left labial swelling and mild discomfort month consistent with hidradenitis suppurativa--superficial ulceration and drainage by her primary physician. No inguinal adenopathy. Musculoskeletal: no pain, no swelling, no redness Integumentary: other - multiple healed excisions of skin cancers, no rash, no bleeding or bruising, no itching--left labial swelling with ulceration as noted above with skin breakdown in the bilateral inguinal creases, no surrounding erythema. Integumentary (breast): incision site - well healed bilateral mastectomy, mild tenderness over bilateral chest wall without palpable masses, no swelling--she does note some disruption of her right axillary incision and is treating this with topical colloid therapy that she received from wound clinic. Neurological: no tremor, no incoordination, no paresthesias, no memory loss Psychiatric: no anxiety, no depression Endocrine: no hormone therapy, no heat intolerance Hematologic/Lymphatic: no anemia, no enlarged lymph nodes Allergic/Immunologic: no reaction to drugs ROS Details: All systems reviewed & no additional complaints except as documented ONC [facility] - General Attestation statement: The following information was validated with the patient. Source: Old Records Reviewed - Medical History Medical history: Cancer, Hypertension, Thyroid Disease - Isra's thyroiditis Past Medical History Comments: Hypothyroid, skin cancer, full dentures due to bone loss, plantar fasciitis, IBS, diverticulitis, hidranitis suppuritiva - Surgical History Surgical history female: cancer surgery Surgical History Comment: x3 skin cancer removal squamous cell, bilt mastectomy 05/07/2018, sinus surgery 2011, excision Hidradenitis suppurative, ecx vaginal lump, all teeth were extracted - have dentures November 2015 - Cardiac History Patient on Systems Test Engineer: No Does Patient Have Pacemaker?: No - Psych History Psychiatric history: anxiety, depression - ENVIRONMENTAL DIRECTOR Hx : 1 Para: 1 ENVIRONMENTAL DIRECTOR Comments: Has paraguard copper IUD does not have periods anymore--removedprior to chemotherapy - Family History Family History: CAD/IL, cancer, diabetes, hypertension - Genetics Would you like a referral to genetics?: No - Social History History of Any Tobacco Product Use?: No Do you ever drink alcohol (including beer or wine)?: Yes If yes, how many days did you drink in the past week?: 0 Did you previously drink alcohol, but have since quit?: No Substance Use Type: None Home Medications & Allergies Allergies Allergy/AdvReac Type Severity Reaction Status Date / Time Sulfa (Sulfonamide Allergy Hives Verified 08/24/18 14:49 Antibiotics) Home Medications Medication Instructions Recorded Confirmed Type levothyroxine [Synthroid] 44 mcg PO BID 01/24/18 09/07/18 History liothyronine 5 mcg PO BID 01/24/18 09/07/18 History lisinopril-hydrochlorothiazide 1 tab PO DAILY 01/24/18 09/07/18 History metformin 500 mg PO DAILY 01/24/18 09/07/18 History paroxetine HCl 40 mg PO DAILY 01/24/18 09/07/18 History ondansetron HCl [Zofran] 8 mg PO TID PRN #30 tab 06/28/18 09/07/18 Rx quetiapine [Seroquel] 12.5 mg PO QHS 06/28/18 09/07/18 History fluticasone See Label Instructions .ROUTE 08/03/18 09/07/18 Rx .COMPLEX 7 Days #1 unit nystatin 1 applic TOPICAL TID #60 gm 08/10/18 09/07/18 Rx fluconazole 100 mg PO DAILY 7 Days #7 tab 09/07/18 Rx nitrofurantoin macrocrystal 100 mg PO BID 09/07/18 09/07/18 History prednisolone acetate 1 drp EYE-LEFT QID 09/07/18 09/07/18 History Objective - Resuscitation Status Resuscitation Status: Full Code - Height/Weight Height/Weight: Height 5 ft 2.5 in Weight 95.8 kg BSA for Today's Weight 2.04 - Vital Signs Vital Signs: 09/07/18 09:37 Temperature 97.9 F Pulse Rate [Left Brachial] 89 Respiratory Rate 20 Blood Pressure [Left Arm] 150/85 H 02 Sat by Pulse Oximetry 97 - Pain Generalized Pain Intensity: 4 Chest Pain Intensity: 4 - Emotional Needs Assessment Emotional Needs Assessment: Emotional Needs Identified? No Distress Screening Total 0 - ECOG Performance Status ECOG Score: 1 Physical Exam - Constitutional no acute distress, average body habitus, obese, no chronically ill appearing, cooperative - Routine HEENT Exam Head: normocephalic, atraumatic, no cushingoid faces Eye: EOMI, PERRL, no conjunctival injection, no scleral icterus ENT: mucous membranes moist, oropharynx clear, dentition normal - Routine Neck Exam supple, full ROM, no lymphadenopathy, no thyromegaly, no tenderness - Routine Chest/Breast/Axilla Exam Chest wall: no tenderness, no mass, other - Mild crusting over right chest wall port without surrounding erythema or skin breakdown. Will follow closely. Breast: no induration, no swelling, scars, right mastectomy, left mastectomy, other - Mild tenderness over her bilateral chest wall to palpation without palpable masses. Incisions are well-healed from bilateral mastectomy Axillae: no lymphadenopathy, no mass, no swelling - no upper extremity lymphedema, no suppurative lesions - Routine Respiratory Exam no accessory muscle use, CTA bilaterally, no respiratory distress, no rhonchi, no wheezes, no crackles, no distant breath sounds, no diminished air movement - Routine Cardiovascular Exam RRR, no murmur, no irregularly irregular - Routine Abdominal Exam soft, normoactive bowel sounds, no tenderness, no distended, no organomegaly, [place] - Routine Rectal Exam Visual: Present: tenderness, palpable mass - Routine Exam External: Present: normal urethra appearance, erythema - mild left labia majora only, swelling - 3+ left labia majora, normal on right labia, tenderness - Mild tenderness without fluctuance over left labia majora--mild ulceration without erythema, mild swelling or tenderness of the labia minora, other - Epidermal disruption in left labial crease without drainage or significant erythema. Absent: lesions, ecchymosis, discharge Groin: Absent: inguinal lymphadenopathy, tenderness, swelling Perineal: Present: erythema, tenderness - Routine Extremities Exam Present: full ROM, pulses intact. Absent: cyanosis, clubbing, edema, calf tenderness, tenderness - Routine Back/Spine/Pelvis Exam Back/Spine: Present: full ROM. Absent: CVA tenderness, paraspinal tenderness, vertebral tenderness - Routine Skin Exam Present: intact. Absent: erythema, petechiae, urticaria, jaundice, rash, ecchymosis - Routine Neurological Exam Present: alert, oriented X3, CN II-XII intact, moving all extremities, vision grossly intact, hearing grossly intact, normal speech. Absent: sensory deficit,motor deficit, abnormal gait, tremors - Routine Psychiatric Exam Present: normal affect, normal thought process, cooperative. Absent: depressed,anxious Results - Labs Labs: Diagram of Most Recent CBC and CMP 09/06/18 10:17 09/06/18 10:17 Labs - Last 7 Days 09/06/18 10:17: PHA Creatinine Clear [id number], Sodium 138, Potassium 3.7, Chloride 103, Carbon Dioxide 24.8, BUN 8 L, Creatinine 0.73, Est GFR ( Amer) > 60, Est GFR (Non-Af Amer) > 60, Glucose 142 H, Calcium 9.0, Total Bilirubin 0.6, AST 27, ALT 17, Alkaline Phosphatase 63, Total Protein 6.4, Albumin 3.6, Globulin 2.8, Albumin/Globulin Ratio 1.3 09/06/18 10:17: WBC 7.2, Corrected WBC 7.2, RBC 3.96, Hgb 11.6 L, Hct 34.4, MCV 87.0, MCH 29.4, MCHC 33.8, RDW 18.3 H, Plt Count 235, MPV 6.8, Neut % (Auto) 64.3, Lymph % (Auto) 11.8, [place] % (Auto) 8.7, Eos % (Auto) 13.3, Baso % (Auto) 1.9, Neut # (Auto) 4.6, Lymph # (Auto) 0.9 L, [place] # (Auto) 0.6, Eos # (Auto) 1.0 H, Baso # (Auto) 0.1, Nucleated RBC % (auto) 0.1 H - Impressions ITS Impressions Bone Scan Nuclear Medicine 07/11/18 10:56 IMPRESSION: Postoperative changes are noted in the right chest wall. No acute intra-abdominal or thoracic pathology. Uncomplicated colonic diverticulosis. 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 No evidence of metastatic disease. Degenerative changes are present in the shoulders, hips, right knee, and feet bilaterally. No focal abnormal radiotracer accumulation to suggest bony metastatic disease. Impression dictated by: Selvin Devine M.D.07/11/2018 5:12 PM Dictation Location[facility] Any impression(s) listed above is documentation that was entered by the reading physician into a diagnostic report(s) for Maria M Mckeon. I have reviewed the report(s) and am incorporating any findings in the treatment plan of this patient where applicable. Assessment and Plan (1) Cancer of right breast, stage 2 Status: Chronic This is a 48 yo female who discovered a right upper outer quadrant breast mass and underwent bilateral mastectomy 05/07/2018. Final pathology returned as a pT2(4.2cm) pN0 (only 4 lymph nodes excised--possibly less nodes due to prior hydradenitis suppuritiva surgery) M0. The tumor is moderately differentiated estrogen receptor positive (0%), progesterone negative (0%), Her2 negative neoplasm. Menopausal status is somewhat unclear with IUD in place--this has been removed since start of chemo. Patient does not have a history of tubal ligation. She will begin Lupron injections while on chemotherapy and may continue for 2-3 years. Since tumor is < 5cm, negative lymph nodes, and negative margins, she will not require postmastectomy radiation therapy. I sent the tumor specimen for Oncotype Dx which returned with high risk recurrence score of 47 consistent with29% recurrence at 10 years with hormonal therapy alone. Baseline Echo showed normal ejection fraction, however a 2 cm hepatic cyst of unclear etiology was seen on echo. CT of chest abdomen and pelvis + bone scan due to chest wall pain, cough, an indeterminate liver cyst seen on echo were ordered--all were found to be unremarkable. No metastatic disease on bone scan. ----- ----- ----- ----- Seen today for routine toxicity check after completing 4 cycles dose dense AC, now here for cycle 1 paclitaxel. She is tolerating this very well; only complaint today continued left labial swelling due to hidradenitis suppurativa which was initially treated with antibiotics, now continued swelling on topical antifungal therefore we have recommended 1 week of Diflucan 100 mg daily. If she has continued symptoms at the end of 1 week, we may consider remaining on Diflucan for the remainder of chemotherapy and referral to ICHTHYOLOGIST for possible I&D. She has stable mild fatigue. No issues with nausea/vomiting or diarrhea. Laboratories unremarkable. Reinforced neutropenic precautions. Mild crusting over new [id number] scar without erythema. Will follow closelywith continued chemotherapy infusions and lab draws. Patient to return to the clinic in 4 weeks for toxicity follow-up prior to week 5 of 12 weekly Taxol infusions. She knows to call us sooner with any questions/concerns. This is a moderate complexity visit over 30 minutes (2) Estrogen receptor positive status [ER+] Status: Chronic Hormonal therapy will follow chemotherapy as noted above. (3) Hidradenitis suppurativa Status: Chronic 1 month ago she noted left groin swelling with normal CBC. Patient has known history of hidradenitis suppurativa and known sulfa allergy. We initially treated her for possible MRSA with doxycycline 100 mg twice daily for 1 week and advised to go to emergency department if worsening of swelling or pain. She followed up with her primary physician who prescribed topical antifungal therapy but she has ongoing swelling and drainage of this area without erythema. She will be treated with 1 week of Diflucan 100 mg daily and consider evaluation by ICHTHYOLOGIST if persistent symptoms for possible I&D. Will follow closely with future examinations. No change in scarring in bilateral axillae or evidence of recurrence in those regions. (4) Chest wall pain following surgery Status: Resolved No evidence of metastatic disease or osseous lesions on CT chest and bone scan. Chest wall pain has improved with healing of bilateral mastectomy. (5) Hepatic cyst Status: Acute Indeterminate hepatic cyst identified on echocardiogram for staging. CT of abdomen and pelvis did not indicate any hepatic metastasis. We will follow liver function tests and symptoms. 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 She has already had bilateral mastectomy but will be speaking with family members regarding recommendations for screening for this breast cancer associated gene. (7) Encounter for antineoplastic chemotherapy Status: Chronic Proceed with cycle 1 day 1 weekly paclitaxel today. - Chemo Plan Chemo Plan (Dose, Rate, Freq): Completed 4 cycles dose dense AC, begin weekly paclitaxel 80 mg/m? x 12 weeks starting 09/07/2018. Hormonal therapy following chemotherapy. Number of Cycles: 4 - Dose dense AC Goal of Treatment: Curative - Time with Patient Total Time Spent with Patient: 30 min Coordination of Care & Counseling Time: Greater than 50% of time spent with patient was for coordination of care (as documented) and [id number] counseling of patient and/or family. Dictated By: Tanya Washington MD DD/ [id number] Signed By: <Electronically signed by MD Tanya Washington> 09/07/18 1740 [facility] Work Phone: [phone] Progress note Author Judith Bhatt [facility] August 09, 2018 8:16pm Note Date/Time August 08, 2018 11 :02am [facility] [place] [address] Genetics Follow Up Note Signed Patient: Maria M Mckeon MR#: [id number] : 1970 Acct:[id number] Age/Sex: 48 / F Type: REG RCR Copies to: Driss Mendoza Kim E MD Reese,Tanya DOVER~ Genetics Follow Up Note Narrative: History of Present Illness Maria M Mckeon is a 48-year-old female with a personal history of breast cancer.She was referred to the Cancer Genetics Clinic at [facility] by her physician, Dr. Guy. She was last seen on 07/11/18 and returns today, 08/08/17 with her sister to review the results of her genetic testing. Results/Data [employer] gene panel: POSITIVE SARABJIT [id number]- Pathogenic mutation MSH2 p.P349A variant of uncertain significance Ms. 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 This means that her result is POSITIVE. Genetic testing was performed by [employer]. These genes include the following: BRCA1, BRCA2, SARABJIT, BARD1, BRIP1, CDH1, CHEK2, DICER1, MLH1, MRE11A, MSH6, MUTYH, NBN, NF1, PALB2, PMS2, PTEN, RAD50, RAD51C, RAD51D, SMARKA4, STK11 and TP53. All of the genes were analyzed using next generation sequencing technology, as well as deletion and duplication analysis. EPCAM (deletion/duplication only) Ms. Mckeon was also found to have a sequence change (ie variant) called p.P349A where the proline was replaced by alanine the amino acid position 349 in the MSH2 protein. Variants of uncertain significance may or may not have functionaleffects on the gene. In other words, the current technology test is not able toaccurately classify whether this MSH2 variant is either cancer causing or neutral. Limited information about this variant was provided by the laboratory. Patient Discussion/Summary Ms. Mckeon is a 48-year-old woman with breast cancer with a deleterious mutation in the SARABJIT gene and variant of uncertain significance in the MSH2 gene.This result means that Ms. Curry has a high lifetime risk for breast cancer andpancreatic cancer. We discussed the test result and management options with Ms. Mckeon today, briefly outlined below. Ms. Mckeon had genetic testing which revealed that she carries a change (also known as a mutation) in a gene called SARABJIT that places her at increased risk for certain types of cancers. This type of mutation that Ms. Mckeon has in the SARABJIT gene can be passed along through families, and family members who share this mutation can take steps to reduce their lifetime cancer risk. -The role of SARABJIT in hereditary cancer susceptibility: SARABJIT is a gene that helps protect against developing cancer. Everyone has two copies of this gene. If one of the two copies of a person?s gene has a mutation that causes it not to function correctly, that person will be at some increased risk of cancer. SARABJIT is thought to be a cancer risk susceptibility gene that interacts with other genes to increase risk of cancer. While it plays a role in familial cancer risk, it is most likely not the sole cause of familial cancer inmany cases. Therefore, we consider SARABJIT to be a moderate risk cancer susceptibility gene. -Inheritance of an SARABJIT mutation: SARABJIT mutations are inherited in an autosomal dominant manner. This means that when a person has an SARABJIT mutation, each of their children and siblings has as a 50% chance of also having this mutation. Individuals who have a family history of an SARABJIT mutation can consider undergoing genetic testing (blood testing) to determine whether they also have the mutation. It is possible that a child may inherit two mutations in the SARABJIT gene and be affected with a genetic condition call ataxia telangiectasia which is associatedwith an autosomal recessive neurodegenerative disorder that affects many body parts. If a person of reproductive age is found to be an SARABJIT carrier, testing the partner to see if they are an SARABJIT carrier is recommended. -Risks of cancer with an SARABJIT mutation: Both men and women with an SARABJIT mutation are at increased risk of developing certain cancers. Women with a mutation in the SARABJIT gene are at increased risk of developing breast cancer. The most recent estimates of breast cancer risk for women with a mutation in SARABJIT is 2-4 times greater than the general population over the course of the lifetime, meaning that they have up to a 17-52% lifetime risk of developing breast cancer. Both men and women with a mutation in SARABJIT are at increased risk of pancreatic cancer, although the exact risk is not known. The general population has a 1% lifetime risk for developing pancreatic cancer. There may be other increased risks of cancer associated with an SARABJIT mutation; however, this requires additional study. -Surveillance for family members who test positive for an SARABJIT mutation: Although this information may be alarming, it is important to understand that ifan individual is aware that they have an increased risk for cancer, they can take steps to reduce their lifetime risk. Specifically, women with an SARABJIT mutation should be offered increased breast surveillance to screen for breast cancer, annual clinical breast exam starting at 30, annual mammogram and breast MRI beginning at age 40 (or 10 years earlier than the earliest diagnosis of breast cancer in the family). So for Ms. Mckeon?s family, breast MRI and mammogram should start at age 35. Consideration of prophylactic mastectomy should be based on family history rather than the presence of a heterozygous ATMmutation alone. Clinical and professional guidelines for screening individuals with SARABJIT mutations for pancreatic cancer have not yet been established. Per the most recent NCCN guidelines, there is insufficient evidence to support the avoidance of ionizing radiation in those that have one SARABJIT mutation. -Surveillance for family members who test negative for an SARABJIT mutation: Because SARABJIT may interact with other genes to cause cancer in a family, those whotest negative for the SARABJIT mutation may still have other genetic factors that place them at increased risk of cancer. Therefore, we recommend that family members who test negative for the SARABJIT mutation be managed based on their family history of cancer. In many families, increased breast cancer surveillance may still be appropriate for women who test negative for the familial SARABJIT mutation. -Genetic Testing for an SARABJIT mutation: Being informed of an SARABJIT mutation in the family can be stressful and frighteningfor some people; however, understanding that there may be an increased risk of cancer can empower individuals to take specific actions to reduce their risk. Ifyour family members would like to learn more about this condition, we encourage that they speak with a genetic counselor who is trained to provide information and discuss options for individuals with an SARABJIT mutation in the family. Undergoing testing is a personal decision that everyone must make for themselves. Speaking to a genetic counselor will help them make an informed decision about whether testing is right for them. -Medical Management for Ms. Mckeon: We recommend that you continue to follow with your breast surgeon and have a discussion about the screening with your bilateral mastectomy. Due to the increased risk for pancreatic cancer, a referral to hse advisor can be considered. PLAN: 1. Ms. Mckeon was found to have a deleterious mutations in her SARABJIT gene designated [id number]. She was given a copy of her result and she is encouraged to discuss this information with her physicians and with her family members. 2. No additional genetic testing is recommended for Ms. Mckeon. Other family members, including her siblings and children, should consider genetic testing. Cancer genetic services can be found by contacting their local cancer center, going to [facility] and clicking on ?find a counselor?, or calling our office ([phone]). Family members are eligible for free testing with [facility] for 90 days after report date (08-07-18). We would not recommend testing Ms. Mckeon?s daughter at this time, as she is a minor and screening will not start until she is older (clinical breast exam at age 30, MRI and mammogram should start at age 35). She should be seen for counseling prior to having children due to the potential risk for having child with Ataxia Telangiectasia. 3. Ms. Mckeon should discuss the genetic test results with her physicians. Ms. Mckeon may consider an evaluation with a GI physician, in regards to pancreaticcancer screening. 4. We would like to see Ms. Mckeon back in genetics in 3 years to review updates on SARABJIT. 5. Individuals with SARABJIT mutations are at risk to have a child with ataxia telangiectasia and their partners should be offered carrier screening for SARABJIT mutations. We are available at the [facility] at [phone] for questions or concerns about the information discussed at this appointment. Time Spent With Patient: 45 minutes of which 100 percent was spent counseling and or coordinating care. Dictated By: Judith Bhatt MD DD/ 1102 Signed By: <Electronically signed by Judith Bhatt MD> 08/09/182015 [facility] Work Phone: [phone] Progress note Author Tanya Washington [facility] August 04, 2018 9:21am Note Date/Time August 03, 2018 10 :13am [facility] [place] [address] Hem/Onc Follow Up Note - OP Signed Patient: Maria M Mckeon MR#: [id number] : 1970 Acct:[id number] Age/Sex: 48 / F Type: REG RCR Copies to: Driss Mendoza Kim E MD~ Subjective Date/Time of Service: Date of Service: 08/03/2018 Time of Service: 10:12 Chief Complaint: Patient is here for follow up before cycle#3 of AC. Patient states nails are becoming more sensitive. Patients main problem is skin condition that has flarred up since start of treatment in the groin area that has traveled back to [facility]. Patient has used OTC antifungal. Patient also notes eyes have become red. - Diagnosis DIAGNOSIS: 1. Right upper outer quadrant [id number] (4.2 cm primary, 4 LN neg), moderately differentiated adenocarcinoma, ER 90%, [place] 0%, Her2 not overexpressed --Sent Oncotype DX on specimen. Reviewed with patient 06/28/2018. Recurrence score returned high risk 47 (correlating to 10 -year recurrence of 29%). Counseled patient for dense dense AC Taxol chemotherapy. --Notes some shortness of breath, intermittent cough and chest wall pain. Had normal baseline echo but 2 cm cyst seen in the liver. Ordering staging bone scan with CT of chest abdomen pelvis due to symptoms prior to chemotherapy. 2. Bilateral mastectomy with axillary lymph node dissection 05/07/2018 3. History of multiple skin squamous cell carcinoma excisions, most recently 12/2017 4. History of resection of hydrenadenitis suppuritiva bilateral axillae 5. HTN 6. Hypothyroidism 7. Chronic sinusitis 8. IBS/diverticulosis HPI: The patient presents for routinetoxicity check following initiation of adjuvant therapy with dose dense AC (will have cycle 3 next week). Cycle 1, day 1: 07/06/2018. She started Lupron monthly with chemotherapy for ovarian suppression, as the patient had her IUD removed. She has tolerated first 2 cycles well with no significant nausea. She noted dysuria earlier this week andsubsequent urinalysis showed 4 + leukocyte esterase and 20-49 Urine WBC's. Subsequent culture was negative, but patient was started on prophylactic antibiotics due to immunosuppression. Her dysuria symptoms have completely resolved. No fever/chills, chest pain, cough, SOB, abdominal pain, diarrhea/constipation, skin rash or lower extremity edema. Her only complaint today is swelling over the left labia for the last 3-4 days. This is associated with mild discomfort but no significant pain or fluctuance. There is mild skin breakdown in the inguinal crease. This is consistent with recurrence of her hidradenitis suppurativa and will be treated with antibacterial medication. No need for drainage of abscess or imaging at this time as this is nontender or fluctuant. She has persistent mild fatigue and shereceived an Wjuowu-c-Uyxo for further chemotherapy and lab draws. There is mildcrusting over her infusion port and we are following this closely for signs or symptoms of infection. PREVIOUS HISTORY: This is a 48 year old lady who found a large mass in her right upper outer quadrant breast in March. She was immediately referred for mammogram and ultrasound and subsequent US guided needle biopsy 04/20/2018 of clinical 5 cmmass at 10 o'clock--this revealed an invasive mammary carcinoma, grade 2-3, ER 95%, [place] 0%, Her2 negative. She did not see medical oncology or discuss breast conserving therapy or immediate reconstruction with her surgeon. On 05/07/2018, she underwent right modified radical mastectomy with axillary lymph node dissection (no attempt for sentinel lymph node) and left simple mastectomy with axillary dissection. Pathology showed right breast with 4.2cm mass, 4 lymph nodes negative--ER/[place]/Her2 unchanged. No cancer in left breast or 3 lymph nodes. Bone scan and CT scan of the chest, abdomen/pelvis were performed at baseline due to some persistent chest wall pain after mastectomy but she was not found tohave any evidence of metastatic disease. 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 - Summary of Therapies Summary of Therapies: 1. Bilateral mastectomy with axillary lymph node dissection 05/07/2018 2. Oncotype Dx returned with high risk recurrence score and patient was counseled on 06/28/2018 regarding adjuvant chemotherapy with dose dense AC/paclitaxel. Completing staging with CT chest abdomen pelvis and bone scan for postmastectomy chest wall pain, cough, and liver cyst seen on echocardiogram. Baseline cardiac function is normal. 3. Started chemotherapy: 07/06/2018 Dose-dense AC followed by weekly paclitaxel (Category 1) Day 1: Doxorubicin 60mg/m2 IV Day 1: Cyclophosphamide 600mg/m2 IV. Repeat cycle every 14 days for 4 cycles, followed by: Day 1: Paclitaxel 80mg/m2 via 1-hour IV infusion weekly for 12 weeks. Subjective/ROS - Narrative: ROS Details: All systems reviewed & no additional complaints except as documented Constitutional: fair state of general health, able to conduct usual activities, normal activity level, normal exercise tolerance, no weight loss, no weight gain Eyes: no change in vision, no double vision Ears, nose, mouth, throat: no headaches, no vertigo, no lightheadedness, no nasal congestion, no rhinorrhea, no epistaxis, no gingival bleeding, no sore throat Cardiovascular: no chest pain, no palpitations, no syncope, no dyspnea on exertion, no edema, no heart murmur Respiratory: Positive for recent shortness of breath with exertion, no wheezing,positive for intermittent cough, no sputum production, no respiratory infections, no TB exposure, positive for intermittent chest wall pain over her mastectomy site. Gastrointestinal: no change in appetite, no dysphagia, no indigestion, no abdominal pain, no nausea, no vomiting, no jaundice, no constipation, no diarrhea, no abnormal stools, no change in bowel habits Genitourinary: no urgency, no frequency, no dysuria, no hematuria, no oliguria, no stones, no urinary retention. Positive left labial swelling and mild discomfort over the past 4 days consistent with hidradenitis suppuritiva. No inguinal adenopathy. Musculoskeletal: no pain, no swelling, no redness Integumentary: other - multiple healed excisions of skin cancers, no rash, no bleeding or bruising, no itching Integumentary (breast): incision site - well healed bilateral mastectomy, mild tenderness over bilateral chest wall without palpable masses, no swelling Neurological: no tremor, no incoordination, no paresthesias, no memory loss Psychiatric: no anxiety, no depression Endocrine: no hormone therapy, no heat intolerance Hematologic/Lymphatic: no anemia, no enlarged lymph nodes Allergic/Immunologic: no reaction to drugs ROS Details: All systems reviewed & no additional complaints except as documented ONC [facility] - General Attestation statement: The following information was validated with the patient. - Medical History Medical history: Cancer, Hypertension, Thyroid Disease - Isra's thyroiditis Past Medical History Comments: Hypothyroid, skin cancer, full dentures due to bone loss, plantar fasciitis, IBS, diverticulitis, hidranitis suppuritiva - Surgical History Surgical history female: cancer surgery Surgical History Comment: x3 skin cancer removal squamous cell, bilt mastectomy 05/07/2018, sinus surgery 2011, excision Hidradenitis suppurative, ecx vaginal lump, all teeth were extracted - have dentures November 2015 - Cardiac History Patient on Systems Test Engineer: No Does Patient Have Pacemaker?: No - Psych History Psychiatric history: anxiety, depression - ENVIRONMENTAL DIRECTOR Hx : 1 Para: 1 ENVIRONMENTAL DIRECTOR Comments: Has paraguard copper IUD does not have periods anymore--removedprior to chemotherapy - Family History Family History: CAD/[place], cancer, diabetes, hypertension - Genetics Would you like a referral to genetics?: No - Social History History of Any Tobacco Product Use?: No Do you ever drink alcohol (including beer or wine)?: Yes If yes, how many days did you drink in the past week?: 0 Did you previously drink alcohol, but have since quit?: No Substance Use Type: None Home Medications & Allergies Allergies Allergy/AdvReac Type Severity Reaction Status Date / Time Sulfa (Sulfonamide Allergy Hives Verified 07/20/18 11:57 Antibiotics) Home Medications Medication Instructions Recorded Confirmed Type levothyroxine [Synthroid] 44 mcg PO BID 01/24/18 08/03/18 History liothyronine 5 mcg PO BID 01/24/18 08/03/18 History lisinopril-hydrochlorothiazide 1 tab PO DAILY 01/24/18 08/03/18 History metformin 500 mg PO DAILY 01/24/18 08/03/18 History paroxetine HCl 40 mg PO DAILY 01/24/18 08/03/18 History ondansetron HCl [Zofran] 8 mg PO TID PRN #30 tab 06/28/18 08/03/18 Rx quetiapine [Seroquel] 12.5 mg PO QHS 06/28/18 08/03/18 History doxycycline hyclate 100 mg PO BID 7 Days #14 cap 08/03/18 Rx fluticasone See Label Instructions .ROUTE 08/03/18 Rx .COMPLEX 7 Days #1 unit Objective - Resuscitation Status Resuscitation Status: Full Code - Height/Weight Height/Weight: Height 5 ft 2.5 in Weight 96.4 kg BSA for Today's Weight 2.10 - Vital Signs Vital Signs: Temp 98.1 F 08/03/18 10:03 Pulse 91 H 08/03/18 10:03 Resp 18 08/03/18 10:03 BP 123/78 08/03/18 10:03 Pulse Ox 96 08/03/18 10:03 - Pain Chest Pain Intensity: 4 - Emotional Needs Assessment Emotional Needs Assessment: Emotional Needs Identified? No Distress Screening Total 7 Support System Spouse,Family Expressed Feelings Depression,Stress Expressed/Other Feelings grief Comment - ECOG Performance Status ECOG Score: 1 Physical Exam - Constitutional no acute distress, obese, no chronically ill appearing, cooperative - Routine HEENT Exam Head: normocephalic, atraumatic, no cushingoid faces Eye: EOMI, PERRL, no conjunctival injection, no scleral icterus ENT: mucous membranes moist, oropharynx clear, dentition normal - Routine Neck Exam supple, full ROM, no lymphadenopathy, no thyromegaly, no tenderness - Routine Chest/Breast/Axilla Exam Chest wall: no tenderness, no mass, other - Mild crusting over right chest wall port without surrounding erythema or skin breakdown. Will follow closely. Breast: no induration, no swelling, scars, right mastectomy, left mastectomy, other - Mild tenderness over her bilateral chest wall to palpation without palpable masses. Incisions are well-healed from bilateral mastectomy Axillae: no lymphadenopathy, no mass, no swelling - no upper extremity lymphedema, no suppurative lesions - Routine Respiratory Exam no accessory muscle use, CTA bilaterally, no respiratory distress, no rhonchi, no wheezes, no crackles, no distant breath sounds, no diminished air movement - Routine Cardiovascular Exam RRR, no murmur, no irregularly irregular - Routine Abdominal Exam soft, normoactive bowel sounds, no tenderness, no distended, no organomegaly, no mass - Routine Rectal Exam Visual: Present: tenderness, palpable mass - Routine Exam External: Present: normal urethra appearance, erythema - mild left labia majora only, swelling - 3+ left labia majora, normal on right labia, tenderness - Mild tenderness without fluctuance over left labia majora, no swelling or tenderness of the labia minora, other - Epidermal disruption in left labial crease without drainage or significant erythema. Absent: lesions, ecchymosis, discharge Groin: Absent: inguinal lymphadenopathy, tenderness, swelling Perineal: Present: erythema, tenderness - Routine Extremities Exam Present: full ROM, pulses intact. Absent: cyanosis, clubbing, edema, calf tenderness, tenderness - Routine Back/Spine/Pelvis Exam Back/Spine: Present: full ROM. Absent: CVA tenderness, paraspinal tenderness, vertebral tenderness - Routine Skin Exam Present: intact. Absent: erythema, petechiae, urticaria, jaundice, rash, ecchymosis - Routine Neurological Exam Present: alert, oriented X3, CN II-XII intact, moving all extremities, vision grossly intact, hearing grossly intact, normal speech. Absent: sensory deficit, motor deficit, abnormal gait, tremors - Routine Psychiatric Exam Present: normal affect, normal thought process, cooperative. Absent: depressed, anxious Results - Labs CBC & Chem 7: 08/02/18 09:35 08/02/18 09:35 Labs: Diagram of Most Recent CBC and CMP 08/02/18 09:35 08/02/18 09:35 Labs - Last 7 Days 08/02/18 09:35: PHA Creatinine Clear [id number], Sodium 136, Potassium 4.0, Chloride 103, Carbon Dioxide 24.3, BUN 14, Creatinine 0.72, Est GFR ( Amer) > 60, Est GFR (Non-Af Amer) > 60, Glucose 121 H, Calcium 9.1, Total Bilirubin 0.2 L, AST 21, ALT 13, Alkaline Phosphatase 76, Total Protein 6.9, Albumin 3.7, Globulin 3.2, Albumin/Globulin Ratio 1.2 08/02/18 09:35: WBC 8.5, Corrected WBC 8.5, RBC 4.38, Hgb 12.7, Hct 37.2, MCV 85.0, MCH 29.1, MCHC 34.2, RDW 15.2, Plt Count 172, MPV 7.1, Neut % (Auto) 70.0, Lymph % (Auto) 12.1, [place] % (Auto) 9.2, Eos % (Auto) 6.9, Baso % (Auto) 1.8, Neut # (Auto) 6.0, Lymph # (Auto) 1.0, [place] # (Auto) 0.8, Eos # (Auto) 0.6 H, Baso # (Auto) 0.2, Platelet Estimate Normal, Plt Morphology Comment Normal, RBC Morphology N/A, Polychromasia Slight, Anisocytosis Slight - Impressions ITS Impressions Bone Scan Nuclear Medicine 07/11/18 10:56 IMPRESSION: Postoperative changes are noted in the right chest wall. No acute intra-abdominal or thoracic pathology. Uncomplicated colonic diverticulosis. 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 No evidence of metastatic disease. Degenerative changes are present in the shoulders, hips, right knee, and feet bilaterally. No focal abnormal radiotracer accumulation to suggest bony metastatic disease. Impression dictated by: Selvin Devine M.D.07/11/2018 5:12 PM Dictation Location: [place] [address] Any impression(s) listed above is documentation that was entered by the reading physician into a diagnostic report(s) for Maria M Mckeon. I have reviewed the report(s) and am incorporating any findings in the treatment plan of this patient where applicable. Assessment and Plan (1) Cancer of right breast, stage 2 Status: Chronic This is a 48 yo female who discovered a right upper outer quadrant breast mass and underwent bilateral mastectomy 05/07/2018. Final pathology returned as a pT2 (4.2cm) pN0 (only 4 lymph nodes excised--possibly less nodes due to prior hydradenitis suppuritiva surgery) M0. The tumor is moderately differentiated estrogen receptor positive (0%), progesterone negative (0%), Her2 negative neoplasm. Menopausal status is somewhat unclear with IUD in place--this has been removed since start of chemo. Patient does not have a history of tubal ligation. She will begin Lupron injections while on chemotherapy and may continue for 2-3 years. Since tumor is < 5cm, negative lymph nodes, and negative margins, she will not require postmastectomy radiation therapy. I sent the tumor specimen for Oncotype Dx which returned with high risk recurrence score of 47 consistent with 29% recurrence at 10 years with hormonal therapy alone. Baseline Echo showed normal ejection fraction, however a 2 cm hepatic cyst of unclear etiology was seen on echo. CT of chest abdomen and pelvis + bone scan due to chest wall pain, cough, an indeterminate liver cyst seen on echo were ordered--all were found to be unremarkable. No metastatic disease on bone scan. ---- ----- ----- ----- Seen today for routine toxicity check prior to cycle 3 dose dense AC. She is tolerating this very well; only complaint today left labial swelling due to hidradenitis suppurativa which will be treated with antibiotics noted below. She has stable mild fatigue. No issues with nausea/vomiting or diarrhea. Laboratories unremarkable. Reinforced neutropenic precautions. Patient to continue antibiotic doxycycline 100 mg twice daily for 1 week. Mild crusting over new [id number]-p-Bmbs scar without erythema. Will follow closely with continued chemotherapy infusions and lab draws. Patient to return to the clinic in 4 weeks after completion of 4 cycles of dose dense Adriamycin, Cytoxan and prior to first of 12 weekly Taxol infusions. She knows to call us sooner with any questions/concerns. This is a moderate complexity visit over 30 minutes (2) Estrogen receptor positive status [ER+] Status: Chronic Hormonal therapy will follow chemotherapy as noted above. (3) Hidradenitis suppurativa Status: Acute 4 days of right groin swelling with normal CBC. Patient has known history of hidradenitis suppurativa and known sulfa allergy. Will cover for MRSA with doxycycline 100 mg twice daily for 1 week and advised to go to emergency department if worsening of swelling or pain. At this time I do not feel she needs blood cultures as blood counts are normal and symptoms are minimal. Will follow closely with future examinations. No change in scarring in bilateral axillae or evidence of recurrence in those regions. (4) Chest wall pain following surgery Status: Resolved No evidence of metastatic disease or osseous lesions on CT chest and bone scan. Chest wall pain has improved with healing of bilateral mastectomy. (5) Hepatic cyst Status: Acute Indeterminate hepatic cyst identified on echocardiogram for staging. CT of abdomen and pelvis did not indicate any hepatic metastasis. We will follow liver function tests and symptoms. - Chemo Plan Chemo Plan (Dose, Rate, Freq): Continue AC dose dense x4 cycles, then 12 weekly cycles of paclitaxel Number of Cycles: 4 - Dose dense AC Goal of Treatment: Curative - Time with Patient Coordination of Care & Counseling Time: Greater than 50% of time spent with patient was for coordination of care (as documented) and [id number] counseling of patient and/or family. Dictated By: Tanya Washington MD DD/ 1012 Signed By: <Electronically signed by Tanya Washington MD> 08/04/18 0921 [facility] Work Phone: [phone] Consult note Author Judith Bhatt [facility] July 20, 2018 1:44pm Note Date/Time July 11, 2018 1:45pm [facility] [place] [address] Genetics Consult Note Signed Patient: Maria M Mckeon MR#: [id number] : 1970 Acct:[id number] Age/Sex: 48 / F Type: REG RCR Copies to: Driss Mendoza Kim E MD~ Genetics Consultation Note - Consult Note Narrative: HISTORY OF PRESENT ILLNESS: Ms. Maria M Mckeon is a 48-year old female with a personal history of early onset breast cancer diagnosed at 47 years of age. She was referred to the Cancer Genetics Clinic at [facility] by her physician, Dr. Tanya Washington. Ms. Mckeon is interested in genetic testing to clarify her personal risks for cancer, as well as the risks to her family members. She was seen on July 11, 2018. CANCER MEDICAL HISTORY: PERSONAL HISTORY OF CANCER? Yes TYPE: right breast cancer AGE OF DIAGNOSIS: 47 DIAGNOSIS AND TREATMENT: Patient felt a lump in March 2018. A biopsy on 04/20/18 showed invasive ductal carcinoma, ER positive, [place] negative, Her2 negative. On 05/07/18, she underwent a bilateral mastectomy. Oncotype sent and was 47, and she will be starting adjuvant chemotherapy with Dr. Washington. She doesnot need radiation therapy. HISTORY of OTHER CANCERS? 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 NLRP1 mutations are not known to be associated with breast cancer. CANCER SCREENING HISTORY: Mammograms? Yes, annually Previous breast biopsies? No Vaginal ultrasound? Yes, history of ovarian cysts CA-125? No PAP smear? Yes, all negative Colonoscopy? No EGD? No Dermatology? Yes Other cancer screening? Had a thyroid ultrasound for a benign nodule in the past REPRODUCTIVE HISTORY: # Children: 1 # Pregnancies: 1 Age first :34 Menarche (age): 13 Menopause (age): unknown OCP: Yes, <1 year HRT: No FAMILY HISTORY: A four-generation pedigree was obtained and was significant for the following: - Patient, breast cancer, diagnosed at 47 years of age - Maternal grandfather, stomach cancer, at 70 - Maternal first cousin, uterine cancer, diagnosed in her late 30s or early 40s - Maternal aunt, leukemia, diagnosed at 67 - Mother, extramammary Pagets disease Ms. Mckeon is of Naur[place], Ecuadorean, Lao, Polish, and Indian descent. There is no known Ashkenazi Anabaptism ancestry. Consanguinity was denied. OFC: 52 cm IMPRESSION: Ms. Mckeon is a 48 year old woman with a personal history of breast cancer diagnosed at 47 years of age. She meets NCCN guidelines for genetic testing of the BRCA1 and BRCA2 genes.This testing is recommended, as it will significantly alter Ms. Mckeon?s medical care. Specifically, if positive, she will undergo a prophylactic oophorectomy. GENETIC COUNSELING: We reviewed genes and chromosomes, inherited forms of breast and ovarian cancer,and the BRCA1 and BRCA2 genes causing hereditary breast and ovarian cancer (HBOC). We discussed that most cancers are not due to an inherited genetic susceptibility. However, in about 5-10% of families, there is an inherited genetic mutation that can make a person more susceptible to developing certain forms of cancer. Within these families, we often see multiple family members with cancer, occurring in multiple generations. In addition, earlier onset and bilateral cancers are suggestive of an inherited form of cancer. Finally, there is a clustering of certain types of cancer in these families, such as breast andovarian cancer. We discussed the BRCA1 and BRCA2 genes, which are two genes that have been linked to early-onset breast and/or ovarian cancer. Mutations in these genes areinherited in a dominant pattern and confer up to an 87% lifetime risk for breastcancer. This is elevated compared to the general population risk of 10-12%. In addition, BRCA1 and BRCA2 mutation carriers have up to a 45% lifetime risk for ovarian cancer, which is elevated over the 2% general population risk. Mutation carriers who have already been diagnosed with cancer have an increased risk to develop a second, contralateral breast cancer. BRCA2 gene mutation carriers havean increased risk for male breast cancer, prostate cancer, melanoma, gastric cancer, and pancreatic cancer. We discussed that there are multiple genes associated with increased breast cancer risk. Some genes, like the BRCA1/2 genes, are considered highly penetrantbreast cancer genes, meaning a mutation in the gene confers a high risk of breast cancer. Additionally, there are other intermediate (moderate risk) breastcancer genes. For some of the moderate risk genes, there is often limited information regarding the degree to which a mutation in the gene affects risk ofdifferent types of cancers. Additionally, for some of these moderate risk genes,the appropriate management for individuals who have a mutation in one of these genes is not always clear. In some cases, even if an individual tests positive for a mutation in a moderate risk gene, recommendations may still based on the family history, not the positive test result. Our knowledge about the cancer risks associated with mutations in these moderate risk genes is always growing, and we will likely be able to provide more comprehensive information in the future. Ms. Mckeon was counseled about hereditary cancer susceptibility including cancer risks, options for increased screening and/or risk reduction, genetic testing, and the implications for other family members. We discussed performingBRCA1 and BRCA2 genetic in the context of a larger panel test that looks at 25 different genes that have been shown to increase cancer risk including risk for breast cancer. After discussion about the risks, benefits, and limitations of genetic testing, Ms. Mckeon elected to undergo genetic testing using [employer] panel, which looks at the following genes: BRCA1, BRCA2, SARABJIT, BARD1, BRIP1, CDH1, CHEK2, DICER1, EPCAM, MLH1, MRE11A, MSH2, MSH6, MUTYH, NBN, NF1, PALB2, PMS2, PTEN, RAD50, RAD51C, RAD51D, SMARCA4, STK11, and TP53. Results are typically available within 3-4 weeks, and Ms. Mckeon will return to the Cancer Genetics Clinic to discuss her testing results. At that time, we will make recommendations for both Ms. Mckeon and her family members in terms of cancer screening and/or cancer risk reduction options. PLAN: 1. Ms. Mckeon elected to undergo [employer] testing, which is a panel test that analyzes 25 genes associated with breast and ovarian cancer risk. Consent for testing was signed and blood was drawn. The sample was sent to [facility] [facility] for analysis. Results are typically available in 3-4 weeks. 2. Ms. Mckeon will return to the Cancer Genetics Clinic in approximately four weeks to discuss her test results. 3. We remain available to Ms. Mckeon or her family members at [phone] if any questions arise regarding information discussed at today's visit. Viki Gonsalez MS Licensed Genetic Counselor [facility] Judith Bhatt MD Clinical End Touching Machine Operator Departments of Genetics and Genome Sciences and Pediatrics [facility] PHYSICIAN STATEMENT OF TIME: I spent 10 minutes with this patient and >50% was spent on counseling and coordination of care. Dictated By: Viki Gonsalez DD/ Signed By: <Electronically signed by Viki Gonsalez> 07/20/18 1154 <Electronically signed by Judith Bhatt MD> 07/20/18 1344 [facility] Work Phone: 1(446) 247-370112-14-2018 Progress note Author Dalia Koch [facility] July 13, 2018 10:50am Note Date/Time July 13, 2018 10:35am [facility] [address] [address] Hem/Onc Follow Up Note - OP Signed Patient: Maria M Mckeon MR#: [id number] : 1970 Acct:[id number] Age/Sex: 48 / F Type: REG RCR Copies to: Driss Mendoza Kim E MD~ Subjective Date/Time of Service: Date of Service: 07/13/2018 Time of Service: 10:30 Chief Complaint: Patient here for toxicity check after C1 AC on 07/06/18. Patientreports improving fatigue. She mentions that she started having tingling and cold sensations in her toes as well as tingling in her fingertips. - Diagnosis DIAGNOSIS: 1. Right upper outer quadrant T2N0M0 (4.2 cm primary, 4 LN neg), moderately differentiated adenocarcinoma, ER 90%, [place] 0%, Her2 not overexpressed --Sent Oncotype DX on specimen. Reviewed with patient 06/28/2018. Recurrence score returned high risk 47 (correlating to 10 -year recurrence of 29%). Counseled patient for dense dense AC Taxol chemotherapy. --Notes some shortness of breath, intermittent cough and chest wall pain. Had normal baseline echo but 2 cm cyst seen in the liver. Ordering staging bone scan with CT of chest abdomen pelvis due to symptoms prior to chemotherapy. 2. Bilateral mastectomy with axillary lymph node dissection 05/07/2018 3. History of multiple skin squamous cell carcinoma excisions, most recently 12/2017 4. History of resection of hydrenadenitis suppuritiva 5. HTN 6. Hypothyroidism 7. Chronic sinusitis 8. IBS/diverticulosis HPI: The patient presents for routine 8-day toxicity check following initiation of adjuvant therapy with dose dense AC. Cycle 1, day 1: 07/06/2018. She started Lupron monthly with chemotherapy for ovarian suppression, as the patient had herIUD removed. She tolerated Cycle 1 well; with no significant nausea. She experienced some dysuria earlier this week and subsequent urinalysis showed 4 + leukocyte esterase and 20-49 Urine WBC's; subsequent culture was negative; but patient was started on prophylactic antibiotics due to immunosuppression. Her dysuria symptoms have completely resolved; no fever/chills, chest pain, cough, SOB, abdominal pain, diarrhea/constipation, skin rash or lower extremity edema. Her only complaint today is fatigue and she is now interested in receiving an Osospf-h-Jyhd for further chemotherapy and lab draws. PREVIOUS HISTORY: This is a 48 year old lady who found a large mass in her right upper outer quadrant breast in March. She was immediately referred for mammogram and ultrasound and subsequent US guided needle biopsy 04/20/2018 of clinical 5 cmmass at 10 o'clock--this revealed an invasive mammary carcinoma, grade 2-3, ER 95%, [place] 0%, Her2 negative. She did not see medical oncology or discuss breast conserving therapy or immediate reconstruction with her surgeon. On 05/07/2018, she underwent right modified radical mastectomy with axillary lymph node dissection (no attempt for sentinel lymph node) and left simple mastectomy with axillary dissection. Pathology showed right breast with 4.2cm mass, 4 lymph nodes negative--ER/[place]/Her2 unchanged. No cancer in left breast or 3 lymph nodes. Bone scan, CT scan of the chest, abdomen/pelvis: Nuclear medicine bone scan: There is focal radiotracer accumulation within the shoulders, left greater than right predominantly affecting the left acromioclavicular joint. There is focal radiotracer accumulation along the lateral femoral condyle of the right knee. There is mild increase in radiotracer accumulation in the bilateral hips, right greater than left as well as within the midfoot bilaterally, right greater than left. There is no focal abnormal radiotracer accumulation to suggest the presence of metastatic disease. There is physiologic radiotracer accumulation within the renal collecting systems and bladder. IMPRESSION: Postoperative changes are noted in the right chest wall. No acute intra-abdominal or thoracic pathology. Uncomplicated colonic diverticulosis. 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 No evidence of metastatic disease. Degenerative changes are present in the shoulders, hips, right knee, and feet bilaterally. No focal abnormal radiotracer accumulation to suggest bony metastatic disease. - Summary of Therapies Summary of Therapies: 1. Bilateral mastectomy with axillary lymph node dissection 05/07/2018 2. Oncotype Dx returned with high risk recurrence score and patient was counseled on 06/28/2018 regarding adjuvant chemotherapy with dose dense AC/paclitaxel. Completing staging with CT chest abdomen pelvis and bone scan for postmastectomy chest wall pain, cough, and liver cyst seen on echocardiogram. Baseline cardiac function is normal. 3. Started chemotherapy: 07/06/2018 Dose-dense AC followed by weekly paclitaxel (Category 1) Day 1: Doxorubicin 60mg/m2 IV Day 1: Cyclophosphamide 600mg/m2 IV. Repeat cycle every 14 days for 4 cycles, followed by: Day 1: Paclitaxel 80mg/m2 via 1-hour IV infusion weekly for 12 weeks. Subjective/ROS - Narrative: ROS Details: All systems reviewed & no additional complaints except as documented Constitutional: fair state of general health, able to conduct usual activities, normal activity level, normal exercise tolerance, no weight loss, no weight gain Eyes: no change in vision, no double vision Ears, nose, mouth, throat: no headaches, no vertigo, no lightheadedness, no nasal congestion, no rhinorrhea, no epistaxis, no gingival bleeding, no sore throat Cardiovascular: no chest pain, no palpitations, no syncope, no dyspnea on exertion, no edema, no heart murmur Respiratory: Positive for recent shortness of breath with exertion, no wheezing,positive for intermittent cough, no sputum production, no respiratory infections, no TB exposure, positive for intermittent chest wall pain over her mastectomy site. Gastrointestinal: no change in appetite, no dysphagia, no indigestion, no abdominal pain, no nausea, no vomiting, no jaundice, no constipation, no diarrhea, no abnormal stools, no change in bowel habits Genitourinary: no urgency, no frequency, no dysuria, no hematuria, no oliguria, no stones, no urinary retention Musculoskeletal: no pain, no swelling, no redness Integumentary: other - multiple healed excisions of skin cancers, no rash, no bleeding or bruising, no itching Integumentary (breast): incision site - well healed bilateral mastectomy, mild tenderness over bilateral chest wall without palpable masses, no swelling Neurological: no tremor, no incoordination, no paresthesias, no memory loss Psychiatric: no anxiety, no depression Endocrine: no hormone therapy, no heat intolerance Hematologic/Lymphatic: no anemia, no enlarged lymph nodes Allergic/Immunologic: no reaction to drugs ONC PMF - General Attestation statement: The following information was validated with the patient. - Medical History Medical history: Cancer, Hypertension, Thyroid Disease - Isra's thyroiditis Past Medical History Comments: Hypothyroid, skin cancer, full dentures due to bone loss, plantar fasciitis, IBS, diverticulitis - Surgical History Surgical history female: cancer surgery Surgical History Comment: x3 skin cancer removal squamous cell, bilt mastectomy 05/07/2018, sinus surgery 2011, excision Hidradenitis suppurative, ecx vaginal lump, all teeth were extracted - have dentures November 2015 - Cardiac History Patient on Systems Test Engineer: No Does Patient Have Pacemaker?: No - Psych History Psychiatric history: anxiety, depression - ENVIRONMENTAL DIRECTOR Hx : 1 Para: 1 ENVIRONMENTAL DIRECTOR Comments: Has paraguard copper IUD does not have periods anymore - Family History Family History: CAD/[place], cancer, diabetes, hypertension - Genetics Would you like a referral to genetics?: No - Social History History of Any Tobacco Product Use?: No Do you ever drink alcohol (including beer or wine)?: Yes If yes, how many days did you drink in the past week?: 0 Did you previously drink alcohol, but have since quit?: No Substance Use Type: None Home Medications & Allergies Allergies Allergy/AdvReac Type Severity Reaction Status Date / Time Sulfa (Sulfonamide Allergy Hives Verified 07/06/18 11:23 Antibiotics) Home Medications Medication Instructions Recorded Confirmed Type acitretin 10 mg PO DAILY 01/24/18 07/13/18 History levothyroxine [Synthroid] 44 mcg PO BID 01/24/18 07/13/18 History liothyronine 5 mcg PO BID 01/24/18 07/13/18 History lisinopril-hydrochlorothiazide 1 tab PO DAILY 01/24/18 07/13/18 History metformin 500 mg PO DAILY 01/24/18 07/13/18 History paroxetine HCl 40 mg PO DAILY 01/24/18 07/13/18 History ondansetron HCl [Zofran] 8 mg PO TID PRN #30 tab 06/28/18 07/13/18 Rx quetiapine [Seroquel] 12.5 mg PO QHS 06/28/18 07/13/18 History amoxicillin-pot clavulanate 1 tab PO Q12H 10 Days #20 tab 07/11/18 07/13/18 Rx [Augmentin] Objective - Resuscitation Status Resuscitation Status: Full Code - Height/Weight Height/Weight: Height 5 ft 2.5 in Weight 97.795 kg BSA for Today's Weight 2.09 - Vital Signs Vital Signs: Temp 98.9 F 07/13/18 09:41 Pulse 78 07/13/18 09:41 Resp 16 07/13/18 09:41 BP 135/96 07/13/18 09:41 Pulse Ox 98 07/13/18 09:41 - Pain Chest Pain Intensity: 1 - Emotional Needs Assessment Emotional Needs Assessment: Emotional Needs Identified? Yes Distress Screening Total 3 Support System Family Expressed/Other Feelings Nervous about todays visit Comment - ECOG Performance Status ECOG Score: 1 Physical Exam - Constitutional no acute distress, obese, no chronically ill appearing, cooperative - Routine HEENT Exam Head: normocephalic, atraumatic, no cushingoid faces Eye: EOMI, PERRL, no conjunctival injection, no scleral icterus ENT: mucous membranes moist, oropharynx clear, dentition normal - Routine Neck Exam supple, full ROM, no lymphadenopathy, no thyromegaly, no tenderness - Routine Chest/Breast/Axilla Exam Chest wall: no tenderness, no mass Breast: no induration, no swelling, scars, right mastectomy, left mastectomy, other - Mild tenderness over her bilateral chest wall to palpation without palpable masses. Incisions are well-healed from bilateral mastectomy Axillae: no lymphadenopathy, no mass, no swelling - no upper extremity lymphedema, no suppurative lesions - Routine Respiratory Exam no accessory muscle use, CTA bilaterally, no respiratory distress, no rhonchi, no wheezes, no crackles, no distant breath sounds, no diminished air movement - Routine Cardiovascular Exam RRR, no murmur, no irregularly irregular - Routine Abdominal Exam soft, normoactive bowel sounds, no tenderness, no distended, no organomegaly, no mass - Routine Extremities Exam Present: full ROM, pulses intact. Absent: cyanosis, clubbing, edema, calf tenderness, tenderness - Routine Back/Spine/Pelvis Exam Back/Spine: Present: full ROM. Absent: CVA tenderness, paraspinal tenderness, vertebral tenderness - Routine Skin Exam Present: intact. Absent: erythema, petechiae, urticaria, jaundice, rash, ecchymosis - Routine Neurological Exam Present: alert, oriented X3, CN II-XII intact, moving all extremities, vision grossly intact, hearing grossly intact, normal speech. Absent: sensory deficit, motor deficit, abnormal gait, tremors - Routine Psychiatric Exam Present: normal affect, normal thought process, cooperative. Absent: depressed, anxious Results - Labs CBC & Chem 7: 07/13/18 08:32 07/13/18 08:32 Labs: Diagram of Most Recent CBC and CMP 07/13/18 08:32 12 08:32 Labs - Last 7 Days 07/13/18 08:32: PHA Creatinine Clear [id number], Sodium 133 L, Potassium 3.7, Chloride 99, Carbon Dioxide 22.7, BUN 13, Creatinine 0.82, Est GFR ( Amer) > 60, Est GFR (Non-Af Amer) > 60, Glucose 176 H, Calcium 9.2, Total Bilirubin 0.6, AST 21, ALT 12, Alkaline Phosphatase 74, Total Protein 6.9, Albumin 3.7, Globulin 3.2, Albumin/Globulin Ratio 1.2 07/13/18 08:32: WBC 2.8 L, Corrected WBC 2.8 L, RBC 4.77, Hgb 13.9, Hct 41.0, MCV 85.9, MCH 29.1, MCHC 33.8, RDW 13.9, Plt Count 214, MPV 7.1 07/11/18 14:05: Urine Color Yellow, Urine Appearance Clear, Urine pH 5.5, Ur Specific [place] 1.028, Urine Protein Negative, Urine Glucose (UA) Normal, Urine Ketones Negative, Urine Occult Blood Negative, Urine Nitrite Negative, Urine Bilirubin Negative, Urine Urobilinogen Normal, Ur Leukocyte Esterase 4+ H, Urine RBC 1-2, Urine WBC 20-49 H, Ur Squamous Epith Cells 0-1, Urine Bacteria None seen, Hyaline Casts 0-8 - Microbiology Micro: 07/11/18 14:05 Urine - Clean-Voided Midstream Urine Culture - Final 20,000 colonies/ml mixed bacterial skin contaminants 2 Days - Impressions ITS Impressions Bone Scan Nuclear Medicine 07/11/18 10:56 IMPRESSION: Postoperative changes are noted in the right chest wall. No acute intra-abdominal or thoracic pathology. Uncomplicated colonic diverticulosis. 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 No evidence of metastatic disease. Degenerative changes are present in the shoulders, hips, right knee, and feet bilaterally. No focal abnormal radiotracer accumulation to suggest bony metastatic disease. Impression dictated by: Selvin Devine M.D.07/11/2018 5:12 PM Dictation Location: [id number] Any impression(s) listed above is documentation that was entered by the reading physician into a diagnostic report(s) for Maria M Mckeon. I have reviewed the report(s) and am incorporating any findings in the treatment plan of this patient where applicable. Assessment and Plan (1) Cancer of right breast, stage 2 Status: Chronic This is a 48 yo female who discovered a right upper outer quadrant breast mass and underwent bilateral mastectomy 05/07/2018. Final pathology returned as a pT2 (4.2cm) pN0 (only 4 lymph nodes excised--possibly less nodes due to prior hydradenitis suppuritiva surgery) M0. The tumor is moderately differentiated estrogen receptor positive (0%), progesterone negative (0%), Her2 negative neoplasm. Menopausal status is somewhat unclear with IUD in place--this has been removed since last visit patient does not have a history of tubal ligation. She agrees to Lupron injections while on chemotherapy and may continue for 2-3 years. Since tumor is < 5cm, negative lymph nodes, and negative margins, she will not require postmastectomy radiation therapy. I sent the tumor specimen for Oncotype Dx which returned with high risk recurrence score of 47 consistent with 29% recurrence at 10 years with hormonal therapy alone. Baseline Echo showed normal ejection fraction, however a 2 cm hepatic cyst of unclear etiology was seen on echo. CT of chest abdomen and pelvis + bone scan due to chest wall pain, cough, an indeterminate liver cyst seen on echo were ordered: Findings as follows dated: 07/11/2018 Nuclear medicine bone scan: There is focal radiotracer accumulation within the shoulders, left greater than right predominantly affecting the left acromioclavicular joint. There is focal radiotracer accumulation along the lateral femoral condyle of the right knee. There is mild increase in radiotracer accumulation in the bilateral hips, right greater than left as well as within the midfoot bilaterally, right greater than left. There is no focal abnormal radiotracer accumulation to suggest the presence of metastatic disease. There is physiologic radiotracer accumulation within the renal collecting systems and bladder. IMPRESSION: Postoperative changes are noted in the right chest wall. No acute intra-abdominal or thoracic pathology. Uncomplicated colonic diverticulosis. 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 No evidence of metastatic disease. Degenerative changes are present in the shoulders, hips, right knee, and feet bilaterally. No focal abnormal radiotracer accumulation to suggest bony metastatic disease. ----- ----- ----- Seen today for routine toxicity check; patient tolerated Cycle 1 dose dense AC very well; only complaint today is fatigue. No issues with nausea/vomiting or diarrhea. She had dysuria earlier in the week; with UA showing 4 + leukocyte esterase and 20-49 WBC's; no growth on culture but patient was covered empirically with Augmentin due to immunosuppression. Laboratories are reviewed WBC count is 2.8; ANC pending; no anemia or thrombocytopenia. Reinforced neutropenic precautions. Patient to continue antibiotic. She is now interested in receiving a [id number] for further chemotherapy infusions and lab draws. Referral was sent to Dr. Mendoza for port placement. Patient to return to the clinic in 1 week on 07/20/2018 for cycle 2 dose dense Adriamycin, Cytoxan. She knows to call us sooner with any questions/concerns. (2) Estrogen receptor positive status [ER+] Status: Chronic Hormonal therapy will follow chemotherapy as noted above. (3) Chest wall pain following surgery Status: Acute No evidence of metastatic disease or osseous lesions on CT chest and bone scan.. (4) Hepatic cyst Status: Acute Indeterminate hepatic cyst identified on echocardiogram for staging. CT of abdomen and pelvis did not indicate any hepatic metastasis. - Chemo Plan Chemo Plan (Dose, Rate, Freq): Dose-dense AC followed by weekly paclitaxel (Category 1) Day 1: Doxorubicin 60mg/m2 IV Day 1: Cyclophosphamide 600mg/m2 IV. Repeat cycle every 14 days for 4 cycles, followed by: Day 1: Paclitaxel 80mg/m2 via 1-hour IV infusion weekly for 12 weeks. No indication for radiation therapy as she had bilateral mastectomy, she will have adjuvant hormonal therapy. Goal of Treatment: Curative - Time with Patient Total Time Spent with Patient: 30 min Coordination of Care & Counseling Time: Greater than 50% of time spent with patient was for coordination of care (as documented) and [id number] counseling of patient and/or family. Dictated By: Dalia Koch DD/ 1030 Signed By: <Electronically signed by Dalia Koch> 07/13/18 1050 [facility] Work Phone: [phone] Progress note Author Tanya Washington [facility] June 28, 2018 8:55am Note Date/Time June 28, 2018 8:32am [facility] [place] [id number] Hem/Onc Follow Up Note - OP Signed Patient: Maria M Mckeon MR#: [id number] : 1970 Acct:[id number] Age/Sex: 48 / F Type: REG RCR Copies to: Driss Mendoza Kim E MD~ Subjective Date/Time of Service: Date of Service: 06/28/2018 Time of Service: 08:31 Chief Complaint: Patient is here for follow up to review oncotype results and echo cardiogram. Patient complains of surgical pain across chest and occasional shortness of breath when going up steps. - Diagnosis DIAGNOSIS: 1. Right upper outer quadrant [id number] (4.2 cm primary, 4 LN neg), moderately differentiated adenocarcinoma, ER 90%, [place] 0%, Her2 not overexpressed --Sent Oncotype DX on specimen. Reviewed with patient 06/28/2018. Recurrence score returned high risk 47 (correlating to 10 -year recurrence of 29%). Counseled patient for dense dense AC Taxol chemotherapy. --Notes some shortness of breath, intermittent cough and chest wall pain. Had normal baseline echo but 2 cm cyst seen in the liver. Ordering staging bone scan with CT of chest abdomen pelvis due to symptoms prior to chemotherapy. 2. Bilateral mastectomy with axillary lymph node dissection 05/07/2018 3. History of multiple skin squamous cell carcinoma excisions, most recently 12/2017 4. History of resection of hydrenadenitis suppuritiva 5. HTN 6. Hypothyroidism 7. Chronic sinusitis 8. IBS/diverticulosis HPI: The patient returns today to discuss results of her echo and Oncotype testing. She notes that since her surgery on 05/07/2018 that she has persistent chest wallpain and that she was having shortness of breath with exertion. She also notes some intermittent nonproductive cough without sputum or hemoptysis. During her echo she was told that she had a 2 cm cyst seen in the liver. No significant reduction of ejection fraction noted. Patient was informed of her Oncotype recurrence score of 47 which is in the high risk group, correlating to 10-year risk of recurrence at 29%. The patient wishes to begin chemotherapy and we discussed dose dense AC followed by Taxol below. We will also give Lupron monthly with chemotherapy for ovarian suppression as the patient had her IUD removed. Genetic counseling is scheduled in 2 weeks. Today we reviewed chemotherapy counseling for dose dense Adriamycin 60 mg with Cytoxan 600 mg IV every 2 weeks x4 cycles followed by weekly paclitaxel 80 mg IVx12 cycles. Goal of therapy is cure. Common toxicities were reviewed to include myelosuppression, fatigue, nausea, vomiting, constipation, diarrhea, mouth sores, rare cardiac toxicity, secondary AML/MDS, peripheral neuropathy, and alopecia. Other toxicities may include pneumonitis, and/or hepatic and renal toxicities. The patient signed informed consent and will follow-up as directed. PREVIOUS HISTORY: This is a 48 year old lady who found a large mass in her right upper outer quadrant breast in March. She was immediately referred for mammogram and ultrasound (I do not have these reports available), and subsequent US guidedneedle biopsy 04/20/2018 of clinical 5 cm mass at 10 o'clock--this revealed an invasive mammary carcinoma, grade 2-3, ER 95%, NY 0%, Her2 negative. She did not see medical oncology or discuss breast conserving therapy or immediate reconstruction with her surgeon. On 05/07/2018, she underwent right modified radical mastectomy with axillary lymph node dissection (no attempt for sentinel lymph node) and left simple mastectomy with axillary dissection. Pathology showed right breast with 4.2cm mass, 4 lymph nodes negative--ER/NY/Her2 unchanged. No cancer in left breast or 3 lymph nodes. She feels she is well healed and does not wish for breast reconstruction at thistime. She has not had a menstrual period for several years and has an IUD in place. She does not wish further child bearing and does not have hot flashes orother menopausal symptoms. Her family history is remarkable for mother with extramammary Paget's breast cancer. She has a cousin with uterine cancer. No other family history of breast or ovarian cancer. The patient is followed by [facility] dermatology due to recurrent squamous cell skin cancers andhas had genetic testing for this, but not for predisposition to breast cancer. - Summary of Therapies Summary of Therapies: 1. Bilateral mastectomy with axillary lymph node dissection 05/07/2018 2. Oncotype Dx returned with high risk recurrence score and patient was counseled on 06/28/2018 regarding adjuvant chemotherapy with dose dense AC/paclitaxel. Completing staging with CT chest abdomen pelvis and bone scan for postmastectomy chest wall pain, cough, and liver cyst seen on echocardiogram. Baseline cardiac function is normal. Dose-dense AC followed by weekly paclitaxel (Category 1) Day 1: Doxorubicin 60mg/m2 IV Day 1: Cyclophosphamide 600mg/m2 IV. Repeat cycle every 14 days for 4 cycles, followed by: Day 1: Paclitaxel 80mg/m2 via 1-hour IV infusion weekly for 12 weeks. Subjective/ROS - Narrative: ROS Details: All systems reviewed & no additional complaints except as documented Constitutional: fair state of general health, able to conduct usual activities, normal activity level, normal exercise tolerance, no weight loss, no weight gain Eyes: no change in vision, no double vision Ears, nose, mouth, throat: no headaches, no vertigo, no lightheadedness, no nasal congestion, no rhinorrhea, no epistaxis, no gingival bleeding, no sore throat Cardiovascular: no chest pain, no palpitations, no syncope, no dyspnea on exertion, no edema, no heart murmur Respiratory: Positive for recent shortness of breath with exertion, no wheezing,positive for intermittent cough, no sputum production, no respiratory infections, no TB exposure, positive for intermittent chest wall pain over her mastectomysite. Gastrointestinal: no change in appetite, no dysphagia, no indigestion, no abdominal pain, no nausea, no vomiting, no jaundice, no constipation, no diarrhea, no abnormal stools, no change in bowel habits Genitourinary: no urgency, no frequency, no dysuria, no hematuria, no oliguria, no stones, no urinary retention Musculoskeletal: no pain, no swelling, no redness Integumentary: other - multiple healed excisions of skin cancers, no rash, no bleeding or bruising, no itching Integumentary (breast): incision site - well healed bilateral mastectomy, mild tenderness over bilateral chest wall without palpable masses, no swelling Neurological: no tremor, no incoordination, no paresthesias, no memory loss Psychiatric: no anxiety, no depression Endocrine: no hormone therapy, no heat intolerance Hematologic/Lymphatic: no anemia, no enlarged lymph nodes Allergic/Immunologic: no reaction to drugs ROS Details: All systems reviewed & no additional complaints except as documented ONC [facility] - General Attestation statement: The following information was validated with the patient. - Medical History Medical history: Cancer, Hypertension, Thyroid Disease - Isra's thyroiditis Past Medical History Comments: Hypothyroid, skin cancer, full dentures due to bone loss, plantar fasciitis, IBS, diverticulitis - Surgical History Surgical history female: cancer surgery Surgical History Comment: x3 skin cancer removal squamous cell, bilt mastectomy 05/07/2018, sinus surgery 2011, excision Hidradenitis suppurative, ecx vaginal lump, all teeth were extracted - have dentures November 2015 - Cardiac History Patient on Systems Test Engineer: No Does Patient Have Pacemaker?: No - Psych History Psychiatric history: anxiety, depression - ENVIRONMENTAL DIRECTOR Hx : 1 Para: 1 ENVIRONMENTAL DIRECTOR Comments: Has paraguard copper IUD does not have periods anymore - Family History Family History: CAD/[place], cancer, diabetes, hypertension - Genetics Would you like a referral to genetics?: No - Social History History of Any Tobacco Product Use?: No Do you ever drink alcohol (including beer or wine)?: Yes If yes, how many days did you drink in the past week?: 0 Did you previously drink alcohol, but have since quit?: No Substance Use Type: None Home Medications & Allergies Allergies Allergy/AdvReac Type Severity Reaction Status Date / Time Sulfa (Sulfonamide Allergy Hives Verified 01/24/18 12:13 Antibiotics) Home Medications Medication Instructions Recorded Confirmed Type acitretin 10 mg PO DAILY 01/24/18 06/28/18 History levothyroxine [Synthroid] 44 mcg PO BID 01/24/18 06/28/18 History liothyronine 5 mcg PO BID 01/24/18 06/28/18 History lisinopril-hydrochlorothiazide 1 tab PO DAILY 01/24/18 06/28/18 History metformin 500 mg PO DAILY 01/24/18 06/28/18 History paroxetine HCl 40 mg PO DAILY 01/24/18 06/28/18 History quetiapine [Seroquel] 12.5 mg PO QHS 06/28/18 06/28/18 History Objective - Resuscitation Status Resuscitation Status: Full Code - Height/Weight Height/Weight: Height 5 ft 2.5 in Weight 99.6 kg - Vital Signs Vital Signs: Temp 98 F 06/28/18 08:09 Pulse 83 06/28/18 08:09 Resp 20 06/28/18 08:09 BP 146/93 H 06/28/18 08:09 Pulse Ox 98 06/28/18 08:09 - Pain Chest Pain Intensity: 5 - Emotional Needs Assessment Emotional Needs Assessment: Emotional Needs Identified? Yes Distress Screening Total 5 Support System Sibling(s) Expressed/Other Feelings Nervous about todays visit Comment - ECOG Performance Status ECOG Score: 1 Physical Exam - Constitutional no acute distress, obese, no chronically ill appearing, cooperative - Routine HEENT Exam Head: normocephalic, atraumatic, no cushingoid faces Eye: EOMI, PERRL, no conjunctival injection, no scleral icterus ENT: mucous membranes moist, oropharynx clear, dentition normal - Routine Neck Exam supple, full ROM, no lymphadenopathy, no thyromegaly, no tenderness - Routine Chest/Breast/Axilla Exam Chest wall: no tenderness, no mass Breast: no induration, no swelling, scars, right mastectomy, left mastectomy, other - Mild tenderness over her bilateral chest wall to palpation without palpable masses. Incisions are well-healed from bilateral mastectomy Axillae: no lymphadenopathy, no mass, no swelling - no upper extremity lymphedema, no suppurative lesions - Routine Respiratory Exam no accessory muscle use, CTA bilaterally - No new changes on pulmonary exam today 06/28/2018 performed due to complaint of shortness of breath, no respiratory distress, no rhonchi, no wheezes, no crackles, no distant breath sounds, no diminished air movement - Routine Cardiovascular Exam RRR, no murmur, no irregularly irregular - Routine Abdominal Exam soft, normoactive bowel sounds, no tenderness, no distended, no organomegaly, no mass - Routine Exam Groin: Absent: inguinal lymphadenopathy - Routine Extremities Exam Present: full ROM, pulses intact. Absent: cyanosis, clubbing, edema, calf tenderness, tenderness - Routine Back/Spine/Pelvis Exam Back/Spine: Present: full ROM. Absent: CVA tenderness, paraspinal tenderness, vertebral tenderness - Routine Skin Exam Present: intact. Absent: erythema, petechiae, urticaria, jaundice, rash, ecchymosis - Routine Neurological Exam Present: alert, oriented X3, CN II-XII intact, moving all extremities, vision grossly intact, hearing grossly intact, normal speech. Absent: sensory deficit, motor deficit, abnormal gait, tremors - Routine Psychiatric Exam Present: normal affect, normal thought process, cooperative. Absent: depressed, anxious Results - Impressions Any impression(s) listed above is documentation that was entered by the reading physician into a diagnostic report(s) for Maria M Mckeon. I have reviewed the report(s) and am incorporating any findings in the treatment plan of this patient where applicable. Due to finding of hepatic cyst 2 cm on echocardiogram as well as patient subjective complaint of shortness of breath with cough since her mastectomy as well as chest wall pain, I will complete staging with CT of chest abdomen pelvis and bone scan prior to chemotherapy. Patient has high risk disease by Oncotype DX recurrence score 47 and had suboptimal lymph cyndy staging with only 7 nodes. - Other Results Results/Comments: Date of Service: 06/13/18 ECH/ECH echo transthoracic: baseline for breast cancer Copies to: MD Felix Barry Amy MD~ Height: 62 in Referring Physician: Driss Mendoza Weight: 217 lb Performed By: AGUS Kilpatrick BSA: 2.0 m2 HR: 66 Reason For Study: baseline for breast cancer History: Hypertension,DM,family history CAD Interpretation Summary Ejection Fraction = 55-60%. The left ventricular size, thickness and function are normal The left ventricular wall motion is normal. Incidental finding of 2 cm hepatic cystic structure of [place] clinical significance There is no comparison study available. Procedure/Quality: A two-dimensional transthoracic echocardiogram with color flow and Doppler was performed. Left Ventricle: The left ventricular size, thickness and function are normal. Ejection Fraction = 55-60%. The left ventricular wall motion is normal. Left Atrium: The left atrium appears normal in size. Right Atrium: The right atrium appears normal in size. Right Ventricle: The right ventricular size, thickness and function are normal. Aortic Valve: The aortic valve is normal in structure and function. No aortic regurgitation is present. Mitral Valve: The mitral valve is normal in structure and function. There is no mitral regurgitation noted. Tricuspid Valve: The tricuspid valve is normal in structure and function. No tricuspid regurgitation. Pulmonic Valve: The pulmonic valve is normal in structure and function. Arteries: The aortic root is normal size. Pericardium/Pleura: No pericardial effusion seen. There is no pleural effusion. IVC/Hepatic Viens: The inferior vena cava is normal in size, with a normal collapsibility index. Miscellaneous: Incidental finding of 2 cm hepatic cystic structure of unkwon clinical significance. Assessment and Plan (1) Cancer of right breast, stage 2 Status: Chronic This is a 48 yo female who discovered a right upper outer quadrant breast mass and underwent bilateral mastectomy 05/07/2018. Final pathology returned as a pT2 (4.2cm) pN0 (only 4 lymph nodes excised--possibly less nodes due to prior hydradenitis suppuritiva surgery) M0. The tumor is moderately differentiated estrogen receptor positive (0%), progesterone negative (0%), Her2 negative neoplasm. Menopausal status is somewhat unclear with IUD in place--this has been removed since last visit patient does not have a history of tubal ligation. She agrees to Lupron injections while on chemotherapy and may continue for 2-3 years. Since tumor is < 5cm, negative lymph nodes, and negative margins, she will not require postmastectomy radiation therapy. I sent the tumor specimen for Oncotype Dx which returned with high risk recurrence score of 47 consistent with 29% recurrence at 10 years with hormonal therapy alone. Baseline Echo showed normal ejection fraction, however a 2 cm hepatic cyst of unclear etiology was seen on echo. We are sending for CT of chest abdomen and pelvis due to chest wall pain, cough, an indeterminate liver cyst seen on echo. She will also have bone scan due to chest wall pain after mastectomy. This will be performed in the next week prior to her adjuvant chemotherapy and we will contact her if she has evidence of metastatic disease. The patient was counseled for dose dense AC/paclitaxel as noted in HPI above. She wishes to proceed with therapy as soon as possible and we will schedule her chemotherapy in the next week with Lupron due to premenopausal status. She understands that following chemotherapy she will have hormonal therapy for likely 7-10 years depending on her menopausal status at that time. The patient expressed understanding of all counseling over this 45-minute visit. She will attend chemotherapy class and begin chemo next week, then we will set up a follow-up visit with nurse practitioner August for toxicity check in 2 weeks. I would like to thank you very much for the courtesy of this referral. I will keep you up-to-date with this patient's progress. Should you have any questions regarding the management of this patient, please do not hesitate to contact me. Sincerely, Tanya Washington MD, FACP Medical Oncology (2) Estrogen receptor positive status [ER+] Status: Chronic Hormonal therapy will follow chemotherapy as noted above. (3) Chest wall pain following surgery Status: Acute This may be postmastectomy pain, however this seems more profound over 6 weeks after surgery and we are sending for CT of chest as well as bone scan for further evaluation. (4) Hepatic cyst Status: Acute Indeterminate hepatic cyst identified on echocardiogram for staging. I am sending for CT of abdomen and pelvis to exclude liver metastatic disease although it is unlikely in this patient who had lymph node negative disease (although suboptimal lymph node dissection due to prior surgery for hidradenitis suppurativa). - Chemo Plan Chemo Plan (Dose, Rate, Freq): Dose-dense AC followed by weekly paclitaxel (Category 1) Day 1: Doxorubicin 60mg/m2 IV Day 1: Cyclophosphamide 600mg/m2 IV. Repeat cycle every 14 days for 4 cycles, followed by: Day 1: Paclitaxel 80mg/m2 via 1-hour IV infusion weekly for 12 weeks. No indication for radiation therapy as she had bilateral mastectomy, she will have adjuvant hormonal therapy. Goal of Treatment: Curative - Time with Patient Total Time Spent with Patient: 45 min - High complexity visit for review of echo, new symptoms and coordination of staging CT and bone scans, chemotherapy counseling, placement of chemo orders and subsequent follow-up. Coordination of Care & Counseling Time: Greater than 50% of time spent with patient was for coordination of care (as documented) and [id number] counseling of patient and/or family. Dictated By: Tanya Washington MD DD/ 0 Signed By: <Electronically signed by Tanya Washington MD> 06/28/1855 [facility] Work Phone: [phone] 299-314211-10-2018 Consult note Author Tanya Washington [facility] June 09, 2018 8:53am Note Date/Time June 08, 2018 9 :48am [facility] [place] [address] Hem/Onc Consult Note - OP Signed Patient: Maria M Mckeon MR#: [id number] : 1970 Acct:[id number] Age/Sex: 47 / F Type: REG RCR Copies to: Driss Mendoza Kim E MD~ HPI Date/Time of Service: Date of Service: 06/08/2018 Time of Service: 09:48 Referring Provider/PCP: Referring Provider: Driss Mendoza DO PCP: Albert Christianson MD - History of Present Illness Reason for Consultation: 47-year-old premenopausal female with palpable right breast mass who underwent bilateral mastectomy. No breast cancer left breast with 3 negative lymph nodes. Right breast with 4.2 cm estrogen receptor 90%, progesterone receptor 0%, HER-2/darryl negative moderately differentiated adenocarcinoma. 4 lymph nodes negativeon axillary lymph node dissection. Here to discuss adjuvant therapy options. Chief Complaint: New patient visit diagnosis of breast cancer. HPI: Dear Dr. Mendoza, I had the great pleasure of seeing your patient in consultation. Thank you verymuch for your referral. As you know this is a 47 year old lady who found a large mass in her right upper outer quadrant breast in March. She was immediately referred for mammogram and ultrasound (I do not have these reports available), and subsequent US guided needle biopsy 04/20/2018 of clinical5 cm mass at 10 o'clock--this revealed an invasive mammary carcinoma, grade 2-3,ER 95%, [place] 0%, Her2 negative. She did not see medical oncology or discuss breast conserving therapy or immediate reconstruction with her surgeon. On 05/07/2018, she underwent right modified radical mastectomy with axillary lymph node dissection (no attempt for sentinel lymph node) and left simple mastectomy with axillary dissection. Pathology showed right breast with 4.2cm mass, 4 lymph nodes negative--ER/[place]/Her2 unchanged. No cancer in left breast or 3 lymphnodes. She feels she is well healed and does not wish for breast reconstruction at thistime. She has not had a menstrual period for several years and has an IUD in place. She does not wish further child bearing and does not have hot flashes orother menopausal symptoms. Her family history is remarkable for mother with extramammary Paget's breast cancer. She has a cousin with uterine cancer. No other family history of breast or ovarian cancer. The patient is followed by [facility] dermatology due to recurrent squamous cell skin cancers andhas had genetic testing for this, but not for predisposition to breast cancer. ONC PMFSH - General Attestation statement: The following information was validated with the patient. - Medical History Medical history: Cancer, Hypertension, Thyroid Disease - Isra's thyroiditis Past Medical History Comments: Hypothyroid, skin cancer, full dentures due to bone loss, plantar fasciitis, IBS, diverticulitis - Surgical History Surgical history female: cancer surgery Surgical History Comment: x3 skin cancer removal squamous cell, bilt mastectomy 05/07/2018, sinus surgery 2011, excision Hidradenitis suppurative, ecx vaginal lump, all teeth were extracted - have dentures November 2015 - Psych History Psychiatric history: anxiety, depression - ENVIRONMENTAL DIRECTOR Hx : 1 Para: 1 ENVIRONMENTAL DIRECTOR Comments: Has paraguard copper IUD does not have periods anymore - Family History Family History: CAD/IL, cancer, diabetes, hypertension - Genetics Would you like a referral to genetics?: No - Social History History of Any Tobacco Product Use?: No Do you ever drink alcohol (including beer or wine)?: Yes If yes, how many days did you drink in the past week?: 0 Did you previously drink alcohol, but have since quit?: No Substance Use Type: None Home Medications & Allergies Allergies Allergy/AdvReac Type Severity Reaction Status Date / Time Sulfa (Sulfonamide Allergy Hives Verified 01/24/18 12:13 Antibiotics) Home Medications Medication Instructions Recorded Confirmed Type acitretin 10 mg PO DAILY 01/24/18 06/08/18 History levothyroxine [Synthroid] 44 mcg PO BID 01/24/18 06/08/18 History liothyronine 5 mcg PO BID 01/24/18 06/08/18 History lisinopril-hydrochlorothiazide 1 tab PO DAILY 01/24/18 06/08/18 History metformin 500 mg PO DAILY 01/24/18 06/08/18 History paroxetine HCl 40 mg PO DAILY 01/24/18 06/08/18 History Subjective Data - Diagnosis DIAGNOSIS: 1. Right upper outer quadrant [id number] (4.2 cm primary, 4 LN neg), moderately differentiated adenocarcinoma, ER 90%, [place] 0%, Her2 not overexpressed 2. Bilateral mastectomy with axillary lymph node dissection 05/07/2018 3. History of multiple skin squamous cell carcinoma excisions, most recently 12/2017 4. History of resection of hydrenadenitis suppuritiva 5. HTN 6. Hypothyroidism 7. Chronic sinusitis 8. IBS/diverticulosis - Summary of Therapies Summary of Therapies: 1. Bilateral mastectomy with axillary lymph node dissection 05/07/2018 2. Sending Oncotype Dx to determine if chemo candidate ROS Details: All systems reviewed & no additional complaints except as documented Constitutional: fair state of general health, able to conduct usual activities, normal activity level, normal exercise tolerance, no weight loss, no weight gain Eyes: no change in vision, no double vision Ears, nose, mouth, throat: no headaches, no vertigo, no lightheadedness, no nasal congestion, no rhinorrhea, no epistaxis, no gingival bleeding, no sore throat Cardiovascular: no chest pain, no palpitations, no syncope, no dyspnea on exertion, no edema, no heart murmur Respiratory: no shortness of breath, no wheezing, no cough, no sputum production, no respiratory infections, no TB exposure Gastrointestinal: no change in appetite, no dysphagia, no indigestion, no abdominal pain, no nausea, no vomiting, no jaundice, no constipation, no diarrhea, no abnormal stools, no change in bowel habits Genitourinary: no urgency, no frequency, no dysuria, no hematuria, no oliguria, no stones, no urinary retention Musculoskeletal: no pain, no swelling, no redness Integumentary: other - multiple healed excisions of skin cancers, no rash, no bleeding or bruising, no itching Integumentary (breast): incision site - well healed bilateral mastectomy, no tenderness, no swelling Neurological: no tremor, no incoordination, no paresthesias, no memory loss Psychiatric: no anxiety, no depression Endocrine: no hormone therapy, no heat intolerance Hematologic/Lymphatic: no anemia, no enlarged lymph nodes Allergic/Immunologic: no reaction to drugs Objective - Resuscitation Status Resuscitation Status: Full Code - Height/Weight Height/Weight: Height 5 ft 2.5 in Weight 98.7 kg - Vital Signs Vital Signs: Temp 98.7 F 06/08/18 09:41 Pulse 70 06/08/18 09:41 Resp 18 06/08/18 09:41 BP 141/84 H 06/08/18 09:41 Pulse Ox 97 06/08/18 09:41 - Pain Chest Pain Intensity: 4 - Emotional Needs Assessment Emotional Needs Assessment: Emotional Needs Identified? Yes Distress Screening Total 6 Support System Spouse,Sibling(s),Family - ECOG Performance Status ECOG Score: 1 Physical Exam - Constitutional no acute distress, obese, no chronically ill appearing, cooperative - Routine HEENT Exam Head: normocephalic, atraumatic, no cushingoid faces Eye: EOMI, PERRL, no conjunctival injection, no scleral icterus ENT: mucous membranes moist, oropharynx clear, dentition normal - Routine Neck Exam supple, full ROM, no lymphadenopathy, no thyromegaly, no tenderness - Routine Chest/Breast/Axilla Exam Chest wall: no tenderness, no mass Breast: no tenderness, no induration, no swelling, right mastectomy, left mastectomy Axillae: no lymphadenopathy, no mass, no swelling - no upper extremity lymphedema, no suppurative lesions - Routine Respiratory Exam no accessory muscle use, CTA bilaterally, no respiratory distress, no rhonchi, no wheezes, no crackles - Routine Cardiovascular Exam RRR, no murmur, no irregularly irregular - Routine Abdominal Exam soft, normoactive bowel sounds, no tenderness, no distended, no organomegaly, no mass - Routine Exam Groin: Absent: inguinal lymphadenopathy - Routine Extremities Exam Present: full ROM, pulses intact. Absent: cyanosis, clubbing, edema, calf tenderness, tenderness - Routine Back/Spine/Pelvis Exam Back/Spine: Present: full ROM. Absent: CVA tenderness, paraspinal tenderness, vertebral tenderness - Routine Skin Exam Present: intact. Absent: erythema, petechiae, urticaria, jaundice, rash, ecchymosis - Routine Neurological Exam Present: alert, oriented X3, CN II-XII intact, moving all extremities, vision grossly intact, hearing grossly intact, normal speech. Absent: sensory deficit, motor deficit, abnormal gait, tremors - Routine Psychiatric Exam Present: normal affect, normal thought process, cooperative. Absent: depressed, anxious Results - Labs Labs: No outside labs available for review - Impressions Any impression(s) listed above is documentation that was entered by the reading physician into a diagnostic report(s) for Maria M Mckeon. I have reviewed the report(s) and am incorporating any findings in the treatment plan of this patient where applicable. Outside preop ultrasound reviewed. Outside mammogram not available for review. Assessment and Plan (1) Cancer of right breast, stage 2 Status: Chronic This is a 47 yo female who discovered a right upper outer quadrant breast mass and underwent bilateral mastectomy 05/07/2018. Final pathology returned as a pT2 (4.2cm) pN0 (only 4 lymph nodes excised--possibly less nodes due to prior hydradenitis suppuritiva surgery) M0. The tumor is moderately differentiated estrogen receptor positive (0%), progesterone negative (0%), Her2 negative neoplasm. Menopausal status is somewhat unclear with IUD in place. Documented as paraguard copper IUD, but I have recommended removal prior to adjuvant therapy. Since tumor is < 5cm, negative lymph nodes, and negative margins, she will not require postmastectomy radiation therapy. I am requesting the tumor specimen sent for Oncotype Dx to evaluate whether she should receive chemotherapy if high risk (Oncotype >16 given her premenopausal status--TC if 16-25, ddAC->weekly Taxol if Oncotype >25). She will have baseline Echo in case she receives anthracycline. Also advised her for IUD removal. If low risk Oncotype, may treat with Tamoxifen only for 10 years or Taxol-->aromatase inhibitor when postmenopausal. We reviewed NCCN guidelines and I discussed her case with breast oncologist Dr. Ashish Clark. I would like to thank you very much for the courtesy of this referral. I will keep you up-to-date with this patient's progress. Should you have any questions regarding the management of this patient, please do not hesitate to contact me. Sincerely, Tanya Washington MD, FACP Medical Oncology (2) Estrogen receptor positive status [ER+] Status: Chronic - Chemo Plan Chemo Plan (Dose, Rate, Freq): depending on Oncotype Dx results as discussed above. Goal of Treatment: Curative - Time Spent with Patient Greater than 50% of time spent with patient was for coordination of care (as documented) and [id number] counseling of patient and/or family. Greater than 35 minutes Dictated By: Tanya Washington MD DD/ [id number] Signed By: <Electronically signed by Tanya Washington MD> 06/09/18 0853 [facility] [employer] Work Phone: Evaluation noteNo InformationNorth [employer] Other Evaluation note* Diagnosis Onset Date Resolution Status Hepatic cyst acute Cancer of right breast, stage 2 chronic Dysuria chronic Encounter for antineoplastic chemotherapy chronic Encounter for monitoring tamoxifen therapy chronic Estrogen receptor positive status [ER+] chronic Hidradenitis suppurativa chr onic History of Gram positive sepsis chronic Lumbar back pain chronic 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 Vasomotor symptoms due to menopause chronic Chest wall pain following surgery resolved Left-sided chest wall pain r esolved Mass of left axilla resolved [facility] [employer] Work Phone: Evaluation noteNo assessment information available [facility] [employer] Work Phone: History general Narrative - Reported* Type Description Date Medical History thyroid disease Medical History hypertension Medical History Insulin resistance Medical History diverticulitis Medical History depression Medical History anxiety Medical History skin cancer Medical History MLRP 1 multiple self healing pal moplanter carcinoma Medical History breast cancer Surgical History nasal surgery Surgical History cyst removal Surgical History oral surgery Surgical History left leg skin Surgical History skin biopsy Surgical History double mastectomy Hospitalization History see above [facility] Other history general Narrative - Reported* Type Description Date Medical History hypothyroidism Medical History hypertension Medical History Insulin resistance Medical History diverticulitis Medical History depression Medical History anxiety Medical History skin cancer Medical History MLRP 1 multiple self healing pal moplanter carcinoma Medical History breast cancer Medical History left lower leg Medical History cellulitis Medical History sepsis Medical History leukorrhea, noninfective, vagina Medical History diverticulitis Medical History isra disease Medical History sinus tachycardia Medical History lymphedema of bilateral upper li mbs Medical History hepatoc steatosis Surgical History nasal surgery Surgical History cyst removal Surgical History oral surgery Surgical History left leg skin Surgical History skin biopsy Surgical History double mastectomy Hospitalization History see above [facility] [employer] [facility] Other history general Narrative - Reported* Type Description Date Medical History hypothyroidism Medical History hypertension Medical History Insulin resistance Medical History diverticulitis Medical History depression Medical History anxiety Medical History skin cancer Medical History MLRP 1 multiple self healing pal moplanter carcinoma Medical History breast cancer Medical History left lower leg Medical History cellulitis Medical History sepsis Medical History leukorrhea, noninfective, vagina Medical History diverticulitis Medical History isra disease Medical History sinus tachycardia Medical History lymphedema of bilateral upper li mbs Medical History hepatoc steatosis Medical History Breast Cancer Surgical History nasal surgery Surgical History cyst removal Surgical History oral surgery Surgical History left leg skin Surgical History skin biopsy Surgical History double mastectomy Hospitalization History see above [facility] [employer] [facility] Other history general Narrative - Reported* Type Description Date Medical History hypothyroidism Medical History hypertension Medical History Insulin resistance Medical History diverticulitis Medical History depression Medical History anxiety Medical History skin cancer Medical History MLRP 1 multiple self healing pal moplanter carcinoma Medical History breast cancer Medical History left lower leg Medical History cellulitis Medical History sepsis Medical History leukorrhea, noninfective, vagina Medical History diverticulitis Medical History isra disease Medical History sinus tachycardia Medical History lymphedema of bilateral upper li mbs Medical History hepatoc steatosis Medical History Breast Cancer Medical History high cholesterol Surgical History nasal surgery Surgical History cyst removal Surgical History oral surgery Surgical History left leg skin Surgical History skin biopsy Surgical History double mastectomy Hospitalization History see above [facility] Other Hospital course Narrative No data available for this section [facility] No data available for this section [facility] No data available for this section [facility] Summary Purpose Family History No Family History Records Found Relationship Condition Age at Onset Recorded Date/T solo father Family history of mental disorder Unknown Diabetes mellitus Unknown Heart disease Unknown Hypertension Unknown Not Specified Malignant neoplasm Unknown Unknown Family history of mental disorder Unknown Advance Directives No Advanced Directives Records Found Advance Directive Response Recorded Date/ Time Advance Directives No March 3:23pm Chief Complaint and Reason for Visit Chief Complaint Breast Cancer Reason for Visit Hepatic cyst Cancer of right breast, stage 2 Dysuria Encounter for antineoplastic chemotherapy Encounter for monitoring tamoxifen therapy Estrogen receptor positive status [ER+] Hidradenitis suppurativa History of Gram positive sepsis Lumbar back pain 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 Vasomotor symptoms due to menopause Chest wall pain following surgery Left-sided chest wall pain Mass of left axilla Chief Complaint flu vaccine Breast Cancer Reason for Visit Hepatic cyst Cancer of right breast, stage 2 Dysuria Encounter for antineoplastic chemotherapy Encounter for monitoring tamoxifen therapy Estrogen receptor positive status [ER+] Hidradenitis suppurativa History of Gram positive sepsis Lumbar back pain 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 Vasomotor symptoms due to menopause Chest wall pain following surgery Left-sided chest wall pain Mass of left axilla Additional Source Comments INFORMATION SOURCE (unrecogn ized section and content) DATE CREATED AUTHOR 12/20/2018 [facility] DATE CREATED AUTHOR AUTHOR'S ORGANIZ ATION 12/14/2022 [facility] DATE CREATED AUTHOR AUTHOR'S ORGANIZ ATION 06/12/2023 [facility] DATE CREATED AUTHOR AUTHOR'S ORGANIZ ATION 10/01/2023 [facility] DATE CREATED AUTHOR AUTHOR'S ORGANIZ ATION 10/22/2023 [facility] REASON FOR VISIT (unrecogniz ed section and content) #6 CONGESTION, SORE THROAT, COUGHprior authsNo InformationNo InformationSHINGRIX #2PCR TESTPOSS UTINo Informationswollen glands, maybe an infection in her left jawCOVID, SYMPTOMS HEADACHE, CONGESTION, TIRED, JOINT PAINFIRELANDS WANTS HER TESTED AGAIN FOR COVID, BEEN EXPOSED BY Care Teams (unrecognized sec tion and content) Team Status: Active Member Role Status Dates Albert Christianson MD Primary Care Provider Active Team Status: Inactive Member Role Status Dates Albert Christianson MD Primary Care Provider Active Ze Larose , [facility] Attending Provider Active Team Status: Active Member Role Status Dates Albert Christianson MD Primary Care Provider Active Tanya Washington MD Attending Provider Active Driss Ornelas DO Referring Provider Active Team Status: Inactive Member Role Status Dates Albert Christianson MD Primary Care Provider Active S tart: October 19, 2023 End: October 19, 2023 Paulino Clemens MD Attending Provider Active St art: October 19, 2023 End: October 19, 2023 Goals (unrecognized section and content) Goals may be documented in a n alternate section FOR RECORDS PERTAINING TO PATIENTS WHO ARE OR HAVE BEEN ENROLLED IN A CHEMICAL DEPENDENCY/SUBSTANCEABUSE PROGRAM, SOME INFORMATION MAY BE OMITTED. This clinical summary was aggregated from multiple sources. Caution should be exercised in using it in the provision of clinical care. This summary normalizes information from multiple sources, and as a consequence, information in this document may materially change the coding, format and clinical context of patient data. In addition, data may be omitted in some cases. CLINICAL DECISIONS SHOULD BE BASED ON THE PRIMARY CLINICAL RECORDS. [facility] [employer] provides no warranty or guarantee of the accuracy or completeness of information in this document.
[2023-10-28] MEDS: DOXYCYCLINE MONOHYDRATE 100 MG CAPSULE PO (17:14)
== END 2023-10-28 17:15 | disposition home or self-care (01) ==
LOC: ER 17:09
PROVIDERS: Emergency Provider Emergency Medicine; PCP Family Medicine
DX: L73.9 Follicular disorder, unspecified (principal); Z90.12 Acquired absence of left breast and nipple; F32.A Depression, unspecified; I10 Essential (primary) hypertension; E11.9 Type 2 diabetes mellitus without complications; I89.0 Lymphedema, not elsewhere classified; Z85.3 Personal history of malignant neoplasm of breast; E78.5 Hyperlipidemia, unspecified; Z79.899 Other long term (current) drug therapy
CPT/HCPCS: 99283

== ENCOUNTER 2023-10-31 07:26 | Emergency (ER) | payer OTHER, SELFPAY ==
--- OUTSIDE RECORDS SUMMARY | 2023-10-31 07:33 | XMS_ITS | CCD ---
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 Name Role Phone Nadeem Dorantes Unavailable Corey [...] Unavailable MD Albert Christianson Primary Care Provider [phone] MD Tanya Washington Attending Provider DO Driss Ornelas Referring Provider MD Albert Christianson Primary Care Provider [phone] DO Ze Larose Attending Provider SAIRA DHALIWAL Attending Unavailable Brown, Jessica L Primary Care Physician MD Albert Christianson Primary Care Provider MD Paulino Clemens Attending Provider Obermeyer, Jessica L Admitting Unavailable Obermeyer, Jessica L Attending Unavailable Albert Christianson Primary Care Unavailable Corey Grider Consulting Unavailable Paulino Clemens Admitting Unavailable Paulino Clemens Attending Unavailable Albert Christianson Primary Care Unavailable Felix, Tanya Attending Unavailable Driss Ornelas Referring Unavailable Albert Christianson Primary Care Unavailable Tanya Washington Admitting Unavailable Kuns - CHC, Ze P Admitting Unavailable Kuns - CHC, Ez P Attending Unavailable Albert Christianson Primary Care Unavailable Obermeyer, Jessica L Admitting Unavailable Obermeyer, Jessica Kenia Attending Unavailable Albert Christianson Primary Care Unavailable Brown, AFFILIATE MARKETING COORDINATOR Jessica L Attending Unavailable Brown, AFFILIATE MARKETING COORDINATOR Jessica L Attending Unavailable Brown, AFFILIATE MARKETING COORDINATOR Jessica L Attending Unavailable Brown, AFFILIATE MARKETING COORDINATOR Jessica L Attending Unavailable Brown, AFFILIATE MARKETING COORDINATOR Jessica L Attending Unavailable Brown, AFFILIATE MARKETING COORDINATOR Jessica L Attending Unavailable ALBERT CHRISTIANSON Attending Unavailable Brown, AFFILIATE MARKETING COORDINATOR Jessica L Attending Unavailable Brown, AFFILIATE MARKETING COORDINATOR Jessica L Admitting Unavailable Brown, AFFILIATE MARKETING COORDINATOR Jessica L Attending Unavailable Brown, AFFILIATE MARKETING COORDINATOR Jessica L Attending Unavailable Brown, AFFILIATE MARKETING COORDINATOR Jessica L Admitting Unavailable Brown, AFFILIATE MARKETING COORDINATOR Jessica L Admitting Unavailable Allergies Allergy Classification Reported Allergen(s) Allergy Type Date of Onset Reaction(s) Facility (13 sources) Ciprofloxacin; Translations: [ciprofloxacin] Drug Allergy 03-13-20 23 [facility] (1 source) Penicillins (Antibiotic) Drug allergy itching [employer] Other (11 sources) Sulfonamides (Antibiotic) Drug allergy hives and swelling [employer] Other (15 sources) Acetaminophen / HYDROcodone; Translations: [Vicodin] Drug Allergy Vomiting (disorder) [facility] (12 sources) Acetaminophen / oxyCODONE; Translations: [acetaminophen-ox ycodone] Drug Allergy Vomiting (disorder) [facility] (2 sources) Acetaminophen / oxyCODONE Drug Allergy [facility] (1 source) Cetirizine Drug Allergy [facility] (1 source) Loratadine Drug Allergy [facility] (3 sources) Penicillins; Translations: [penicillins] Drug allergy (disorder) 12-21-19 [facility] (3 sources) Sulfamethoxazole; Translations: [sulfamethoxazole ] Drug Allergy 12-21-19 13 [facility] (1 source) Sulfonamides (Antibiotic) Drug allergy (disorder) [facility] (4 sources) Sulfonamides (Antibiotic); Translations: [Sulfa (Sulfonamide Antibiotics)] Allergy to substance 05-18-20 Hives, Hives, hives and swelling [facility] (3 sources) Latex; Translations: [Latex] Drug allergy [facility] (3 sources) NITROFURANTOIN, MACROCRYSTALS / Nitrofurantoin, Monohydrate; Translations: [nitrofurantoin] Drug Allergy Unknown (qualifier value) [facility] (2 sources) Sulfamethoxazole; Translations: [sulfamethoxazole ] Drug Allergy Cutaneous eruption (morphologic abnormality) [facility] (2 sources) Acetaminophen; Translations: [acetaminophen] Drug Allergy 03-13-20 [facility] (2 sources) HYDROcodone; Translations: [hydrocodone] Drug Allergy 03-13-20 [facility] (2 sources) oxyCODONE; Translations: [oxycodone] Drug Allergy 03-13-20 [facility] (1 source) Acetaminophen / oxyCODONE; Translations: [Percocet 10/325] Drug Allergy [facility] Repository (1 source) corn extract; Translations: [[place]] Drug Allergy [facility] Repository (1 source) Wheat preparation; Translations: [Wheat] Drug Allergy [facility] Repository (1 source) SUGAR; Translations: [SUGAR] Food allergy (disorder) [facility] Repository (1 source) Milk Products; Translations: [Milk Products] Food allergy (disorder) [facility] Repository Medications Current Medications Medication Drug Class(es) Dates Sig (Normalized) Sig (Original) 0.25 MG, 0.5 MG Dose 3 ML semaglutide 0.68 MG/ML Pen Injector [Ozempic] (1 source) Start: 09-20-2023 inject 0.5 mg by subcutaneous injection every week Ozempic 2 mg/3 mL (0.25 mg or 0.5 mg dose) subcutaneous solution 0.5 mg, SubCutaneous, qWeek, # 1 EA, Refills(s) 2, Pharmacy: [facility], 157.5, cm, 09/12/23 8:34:00 EST, Height/Length Dosing, 92.4, kg, 09/12/23 8:34:00 EST, Weight Dosing Start Date: 09/20/23 Status: Ordered [id number] 200 actuat albuterol 0.09 mg/actuat metered dose [...] Daily, # 90 tab(s), Refills(s) 3, Pharmacy: [facility], 157.5, cm, 09/12/23 8:34:00 EST, [...] Daily, # 90 tab(s), Refills(s) 3, Pharmacy: [facility], 157.5, cm, 05/22/23 9:15:00 EDT, [...] day(s), # 14 tab(s), Refills(s) 0, Pharmacy: [facility]/pharmacy #[id number], 157.5, cm, 06/19/23 9:21:00 EST, Height/Length Dosing, 92.6, kg, 06/19/23 9:21:00 EST, Weight Dosing Start Date: 06/19/23 Stop Date: 06/26/23 Status: Ordered citalopram 20 mg oral tablet (16 sources) Serotonin Reuptake Inhibitor Start: 09-12-2019 take 1 tablet by mouth once daily citalopram 20 mg Tab 20 mg = 1 tab(s), Oral, Daily, # 90 tab(s), Refills(s) 3, Pharmacy: [facility], 157.5, cm, 09/12/23 8:34:00 EST, [...] Daily, # 90 tab(s), Refills(s) 3, Pharmacy: [facility], 157.5, cm, 09/12/23 8:34:00 EST, Height/Length Dosing, 92.4, kg, 09/12/23 8:34:00 EST, Weight Dosing Start Date: 09/12/23 Status: Ordered Start: 12-13-2022 take 1 tablet by doris th once daily glipiZIDE 5 mg Tab 5 mg = 1 tab(s), Oral, Daily, # 90 tab(s), Refills(s) 3, Pharmacy: [facility], 157.5, cm, 12/13/22 15:39:00 EDT, [...] directed Orally for 6 days Jun, 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 Thyroid Active oxaprozin 600 mg oral tablet [...] Twice daily March 11, 2020 12:00am thyroid (PENITENTIARY) (12 sources) Start: 03-11-2020 Natural Thyroi d Natural Thyroid, 45mcg tablet BID Start Date: 03/11/20 Status: Ordered take 1 tablet by mouth every twe lve hours SALES STOCK ASSOCIATE Thyroid 60 MG 1 tablet on an [...] 300 MG PO Three times daily 270 90 October 08, 2021 2:58pm September 26, 2022 [...] 18, 2023 3:38pm take 2 tablets by mo uth every twelve hours Nabumetone 500 MG 2 tablet Orally Twice a day Active take 1 tablet by doris th every twelve hours Nabumetone 500 MG 1 [...] Discontinued 100 MG PO Three times daily 90 30 November 09, 2018 10:29am September 12, 2019 [...] Tamoxifen Discontinued 20 MG PO Daily 90 May 09, 2022 9:03am May 03, [...] 3 Chronic Other aftercare (1 source) 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; Translations: [OTH CUSTODIAL CURRENT DRUG THERAPY] Onset: 3 Episodic Other [...] [Urinary tract infection, site not specified] Onset: 2 Episodic Past or Other Problems Problem Classification Problem Date Documented Da te Episodic/Chronic Chronic obstructive pulmonary disease and bronchiectasis (1 source) Bronchitis, not specified as acute or chronic Onset: 07-13-2021 Resolved: 07-13-2021 Episodic Other aftercare (3 sources) Encounter for therapeutic drug level monitoring; Translations: [Encounter for therapeutic drug monitoring] Onset: 05-18-2023 05-18-2023 Episodic Other aftercare (1 source) [facility] (current) use of selective estrogen receptor modulators (SERMs); Translations: [[facility] (current) use of selective estrogen receptor modulators [...] Test Name Value Interpretation Reference Range Facility ED Note-Physicianon 10-30-19 ED Note-Physician [id number] #[id number] Normal [facility] Alanine aminotransferase [En zymatic activity/volume] in Serum or PlasmaOrdered By: Paulino Clemens on 10-19-2023 ALT [Catalytic activity/Vol] 15 U/L 7-52 [facility] Albumin [Mass/volume] in Ser um or Plasma by Bromocresol green (BCG) dye binding methoOrdered By: Paulino Clmeens on 10-19-2023 Albumin BCG dye [Mass/Vol] 4.5 g/dL 3.5-5.7 [facility] Alkaline phosphatase [Enzyma tic activity/volume] in Serum or PlasmaOrdered By: Paulino Clemens on 10-19-2023 ALP [Catalytic activity/Vol] 36 U/L 34-104 [facility] Aspartate aminotransferase [ Enzymatic activity/volume] in Serum or PlasmaOrdered By: Paulino Clemens on 10-19-2023 AST [Catalytic activity/Vol] 24 U/L 13-39 [facility] Basophils Auto (Bld) [#/Vol] Ordered By: Paulino Clemens on 10-19-2023 Basophils (Bld) [#/Vol] 0.0 10*3/uL 0.0-0.2 [facility] Basophils/100 WBC Auto (Bld) Ordered By: Paulino Clemens on 10-19-2023 Basophils/100 WBC (Bld) 0.5 % . [facility] Bilirubin.total [Mass/volume ] in Serum or PlasmaOrdered By: Paulino Clemens on 10-19-2023 Bilirubin [Mass/Vol] 0.4 mg/dL 0.3-1.0 [facility] Calcium [Mass/volume] in Ser um or PlasmaOrdered By: Paulino Clemens on 10-19-2023 Calcium [Mass/Vol] 9.3 mg/dL 8.6-10.3 [facility] Carbon dioxide, total [Moles /volume] in Serum or PlasmaOrdered By: Paulino Clemens on 10-19-2023 CO2 [Moles/Vol] 27.6 mmol/L 21.0-31.0 [facility] Chloride [Moles/volume] in S sam or PlasmaOrdered By: Paulino Clemens on 10-19-2023 Chloride [Moles/Vol] 99 mmol/L 98-107 [facility] Complete Blood Count Auto Di ffon 10-19-2023 Basophils (Bld) [#/Vol] 0.0 10*3/uL Normal 0.0-0.2 [facility] Comment on above: Result Comment: PERF ORMED BY: [facility] [address] [place] [address] PATHOLOGIST SENIOR LITIGATION PARALEGAL ADRIENNE DRAPER M.D. Performed By: #### A SO, EBVNA, EBVEAG, EBV VCAIGG, EBV VCAIGM #### [facility] , #### CMP, ESR, CRP, CBC #### [address] Basophils/100 WBC (Bld) 0.5 % Normal . [facility] Comment on above: Performed By: #### A SO, EBVNA, EBVEAG, EBV VCAIGG, EBV VCAIGM #### [facility] , #### CMP, ESR, CRP, CBC #### [address] Eosinophils (Bld) [#/Vol] 0.4 10*3/uL Normal 0.0-0.45 [facility] Comment on above: Performed By: #### A SO, EBVNA, EBVEAG, EBV VCAIGG, EBV VCAIGM #### [facility] , #### CMP, ESR, CRP, CBC #### [address] Eosinophils/100 WBC (Bld) 5.6 % Normal . [facility] Comment on above: Performed By: #### A SO, EBVNA, EBVEAG, EBV VCAIGG, EBV VCAIGM #### [facility] , #### CMP, ESR, CRP, CBC #### [address] Erythrocyte distribution width (RBC) [Ratio] 14.7 % Normal 11.9-15.3 [facility] Comment on above: Performed By: #### A SO, EBVNA, EBVEAG, EBV VCAIGG, EBV VCAIGM #### [facility] , #### CMP, ESR, CRP, CBC #### [address] Hematocrit (Bld) [Volume fraction] 43.4 % Normal 34.0-46.4 [facility] Comment on above: Performed By: #### A SO, EBVNA, EBVEAG, EBV VCAIGG, EBV VCAIGM #### [facility] , #### CMP, ESR, CRP, CBC #### [address] Hemoglobin (Bld) [Mass/Vol] 14.6 g/dL Normal 11.8-15.4 [facility] Comment on above: Performed By: #### A SO, EBVNA, EBVEAG, EBV VCAIGG, EBV VCAIGM #### [facility] , #### CMP, ESR, CRP, CBC #### [address] Lymphocytes (Bld) [#/Vol] 1.5 10*3/uL Normal 1.00-4.8 [facility] Comment on above: Performed By: #### A SO, EBVNA, EBVEAG, EBV VCAIGG, EBV VCAIGM #### [facility] , #### CMP, ESR, CRP, CBC #### [address] Lymphocytes/100 WBC (Bld) 23.1 % Normal . [facility] Comment on above: Performed By: #### A SO, EBVNA, EBVEAG, EBV VCAIGG, EBV VCAIGM #### [facility] , #### CMP, ESR, CRP, CBC #### [address] MCH (RBC) [Entitic mass] 29.1 pg Normal 24.7-34.3 [facility] Comment on above: Performed By: #### A SO, EBVNA, EBVEAG, EBV VCAIGG, EBV VCAIGM #### [facility] , #### CMP, ESR, CRP, CBC #### [address] MCV (RBC) [Entitic vol] 86.4 fL Normal 80-100 [facility] Comment on above: Performed By: #### A SO, EBVNA, EBVEAG, EBV VCAIGG, EBV VCAIGM #### [facility] , #### CMP, ESR, CRP, CBC #### [address] Mean Corpuscular HGB Conc 33.6 g/dL Normal 32.0-35.0 [facility] Comment on above: Performed By: #### A SO, EBVNA, EBVEAG, EBV VCAIGG, EBV VCAIGM #### [facility] , #### CMP, ESR, CRP, CBC #### [address] Monocytes (Bld) [#/Vol] 0.4 10*3/uL Normal 0.0-0.8 [facility] Comment on above: Performed By: #### A SO, EBVNA, EBVEAG, EBV VCAIGG, EBV VCAIGM #### [facility] , #### CMP, ESR, CRP, CBC #### [address] Monocytes/100 WBC (Bld) 6.6 % Normal . [facility] Comment on above: Performed By: #### A SO, EBVNA, EBVEAG, EBV VCAIGG, EBV VCAIGM #### [facility] , #### CMP, ESR, CRP, CBC #### [address] Neutrophils (Bld) [#/Vol] 4.1 10*3/uL Normal 1.8-7.7 [facility] Comment on above: Performed By: #### A SO, EBVNA, EBVEAG, EBV VCAIGG, EBV VCAIGM #### [facility] , #### CMP, ESR, CRP, CBC #### [place] [address] [place] Neutrophils/100 WBC (Bld) 64.2 % Normal . [facility] Comment on above: Performed By: #### A SO, EBVNA, EBVEAG, EBV VCAIGG, EBV VCAIGM #### [facility] , #### CMP, ESR, CRP, CBC #### [address] NRBC% 0.1 /100{WBC} Normal 0-0.5 [facility] Comment on above: Performed By: #### A SO, EBVNA, EBVEAG, EBV VCAIGG, EBV VCAIGM #### [facility] , #### CMP, ESR, CRP, CBC #### [address] Platelet mean volume (Bld) [Entitic vol] 7.8 fL Normal 6.3-10.7 [facility] Comment on above: Performed By: #### A SO, EBVNA, EBVEAG, EBV VCAIGG, EBV VCAIGM #### [facility] , #### CMP, ESR, CRP, CBC #### [address] Platelets (Bld) [#/Vol] 252 10*3/uL Normal 150-450 [facility] Comment on above: Performed By: #### A SO, EBVNA, EBVEAG, EBV VCAIGG, EBV VCAIGM #### [facility] , #### CMP, ESR, CRP, CBC #### [address] RBC (Bld) [#/Vol] 5.02 10*6/uL High 3.60-5.00 [facility] Comment on above: Performed By: #### A SO, EBVNA, EBVEAG, EBV VCAIGG, EBV VCAIGM #### [facility] , #### CMP, ESR, CRP, CBC #### [address] WBC (Bld) [#/Vol] 6.4 10*3/uL Normal 3.8-11.6 [facility] Comment on above: Performed By: #### A SO, EBVNA, EBVEAG, EBV VCAIGG, EBV VCAIGM #### [facility] , #### CMP, ESR, CRP, CBC #### [address] Comprehensive Metabolic Pane yadira 10-19-2023 Albumin [Mass/Vol] 4.5 g/dL Normal 3.5-5.7 [facility] Comment on above: Performed By: #### A SO, EBVNA, EBVEAG, EBV VCAIGG, EBV VCAIGM #### [facility] , #### CMP, ESR, CRP, CBC #### [address] Albumin/Globulin [Mass ratio] 2.0 {ratio} Normal [facility] Comment on above: Performed By: #### A SO, EBVNA, EBVEAG, EBV VCAIGG, EBV VCAIGM #### [facility] , #### CMP, ESR, CRP, CBC #### [address] ALP [Catalytic activity/Vol] 36 U/L Normal 34-104 [facility] Comment on above: Result Comment: PERF ORMED BY: [place] [address] PATHOLOGIST SENIOR LITIGATION PARALEGAL ADRIENNE DRAPER M.D. Performed By: #### A SO, EBVNA, EBVEAG, EBV VCAIGG, EBV VCAIGM #### [facility] , #### CMP, ESR, CRP, CBC #### [address] ALT [Catalytic activity/Vol] 15 U/L Normal 7-52 [facility] Comment on above: Performed By: #### A SO, EBVNA, EBVEAG, EBV VCAIGG, EBV VCAIGM #### [facility] , #### CMP, ESR, CRP, CBC #### [address] Anion gap [Moles/Vol] 13.6 mmol/L Normal 6.0-15.0 [facility] Comment on above: Performed By: #### A SO, EBVNA, EBVEAG, EBV VCAIGG, EBV VCAIGM #### [facility] , #### CMP, ESR, CRP, CBC #### [address] AST [Catalytic activity/Vol] 24 U/L Normal 13-39 [facility] Comment on above: Performed By: #### A SO, EBVNA, EBVEAG, EBV VCAIGG, EBV VCAIGM #### [facility] , #### CMP, ESR, CRP, CBC #### [address] Bilirubin [Mass/Vol] 0.4 mg/dL Normal 0.3-1.0 [facility] Comment on above: Performed By: #### A SO, EBVNA, EBVEAG, EBV VCAIGG, EBV VCAIGM #### [facility] , #### CMP, ESR, CRP, CBC #### [address] Calcium [Mass/Vol] 9.3 mg/dL Normal 8.6-10.3 [facility] Comment on above: Performed By: #### A SO, EBVNA, EBVEAG, EBV VCAIGG, EBV VCAIGM #### [facility] , #### CMP, ESR, CRP, CBC #### [address] Chloride [Moles/Vol] 99 mmol/L Normal 98-107 [facility] Comment on above: Performed By: #### A SO, EBVNA, EBVEAG, EBV VCAIGG, EBV VCAIGM #### [facility] , #### CMP, ESR, CRP, CBC #### [address] CO2 [Moles/Vol] 27.6 mmol/L Normal 21.0-31.0 [facility] Comment on above: Performed By: #### A SO, EBVNA, EBVEAG, EBV VCAIGG, EBV VCAIGM #### [facility] , #### CMP, ESR, CRP, CBC #### [address] Creatinine [Mass/Vol] 0.85 mg/dL Normal 0.60-1.20 [facility] Comment on above: Performed By: #### A SO, EBVNA, EBVEAG, EBV VCAIGG, EBV VCAIGM #### [facility] , #### CMP, ESR, CRP, CBC #### [address] GFR/1.73 sq M.predicted MDRD (S/P/Bld) [Vol rate/Area] mL/min/{1.73_m2} [facility] Comment on above: Performed By: #### A SO, EBVNA, EBVEAG, EBV VCAIGG, EBV VCAIGM #### [facility] , #### CMP, ESR, CRP, CBC #### [address] Globulin (S) [Mass/Vol] 2.3 g/dL Normal [facility] Comment on above: Performed By: #### A SO, EBVNA, EBVEAG, EBV VCAIGG, EBV VCAIGM #### [facility] , #### CMP, ESR, CRP, CBC #### [address] Glucose [Mass/Vol] 107 mg/dL High 70-100 [facility] Comment on above: Result Comment: [facility] Glucose Reference Range is dependent on time and content of last meal. Glucose of more than 200 mg/dL in a nonstressed, ambulatory subject supports the diagnosis of Diabetes Mellitus. ADA recommended reference range Performed By: #### A SO, EBVNA, EBVEAG, EBV VCAIGG, EBV VCAIGM #### [facility] , #### CMP, ESR, CRP, CBC #### [address] Potassium [Moles/Vol] 3.2 mmol/L Low 3.5-5.1 [facility] Comment on above: Performed By: #### A SO, EBVNA, EBVEAG, EBV VCAIGG, EBV VCAIGM #### [facility] , #### CMP, ESR, CRP, CBC #### [address] Protein [Mass/Vol] 6.8 g/dL Normal 6.4-8.9 [facility] Comment on above: Performed By: #### A SO, EBVNA, EBVEAG, EBV VCAIGG, EBV VCAIGM #### [facility] , #### CMP, ESR, CRP, CBC #### [address] Sodium [Moles/Vol] 137 mmol/L Normal 136-145 [facility] Comment on above: Performed By: #### A SO, EBVNA, EBVEAG, EBV VCAIGG, EBV VCAIGM #### [facility] , #### CMP, ESR, CRP, CBC #### [place] [address] [place] Urea nitrogen [Mass/Vol] 24 mg/dL Normal 7-25 [facility] Comment on above: Performed By: #### A SO, EBVNA, EBVEAG, EBV VCAIGG, EBV VCAIGM #### [facility] , #### CMP, ESR, CRP, CBC #### [address] [place] [address] [facility] Creatinine [Mass/volume] in Serum or PlasmaOrdered By: Paulino Clemens on 10-19-2023 Creatinine [Mass/Vol] 0.85 mg/dL 0.60-1.20 [facility] Eosinophils Auto (Bld) [#/Vo l]Ordered By: Paulino Clemens on 10-19-2023 Eosinophils (Bld) [#/Vol] 0.4 10*3/uL 0.0-0.45 [facility] Eosinophils/100 WBC Auto (Bl d)Ordered By: Paulino Clemens on 10-19-2023 Eosinophils/100 WBC (Bld) 5.6 % . [facility] Erythrocyte distribution wid th Auto (RBC) [Ratio]Ordered By: Paulino Clemens on 10-19-2023 Erythrocyte distribution width (RBC) [Ratio] 14.7 % 11.9-15.3 [facility] Globulin Calc (S) [Mass/Vol] Ordered By: Paulino Clemens on 10-19-2023 Globulin (S) [Mass/Vol] 2.3 g/dL [facility] Glucose [Mass/volume] in Ser um or PlasmaOrdered By: Paulino Clemens on 10-19-2023 Glucose [Mass/Vol] 107 mg/dL 70-100 [facility] Comment on above: ADA recommended refe rence rangeRandom Glucose Reference Range is dependent on time and content of last meal. Glucose of more than 200 mg/dL in a nonstressed, ambulatory subject supports the diagnosis of Diabetes Mellitus. Hematocrit Auto (Bld) [Volum e fraction]Ordered By: Paulino Clemens on 10-19-2023 Hematocrit (Bld) [Volume fraction] 43.4 % 34.0-46.4 [facility] Hemoglobin [Mass/volume] in BloodOrdered By: Paulino Clemens on 10-19-2023 Hemoglobin (Bld) [Mass/Vol] 14.6 g/dL 11.8-15.4 [facility] Leukocytes [#/volume] correc queenie for nucleated erythrocytes in Blood by Automated counOrdered By: Paulino Clemens on 10-19-2023 WBC corrected for nucl RBC Auto (Bld) [#/Vol] 6.4 10*3/uL 3.8-11.6 [facility] Lymphocytes Auto (Bld) [#/Vo l]Ordered By: Paulino Clemens on 10-19-2023 Lymphocytes (Bld) [#/Vol] 1.5 10*3/uL 1.00-4.8 [facility] Lymphocytes/100 WBC Auto (Bl d)Ordered By: Paulino Clemens on 10-19-2023 Lymphocytes/100 WBC (Bld) 23.1 % . [facility] MCH Auto (RBC) [Entitic mass ]Ordered By: Paulino Clemens on 10-19-2023 MCH (RBC) [Entitic mass] 29.1 pg 24.7-34.3 [facility] MCHC Auto (RBC) [Mass/Vol]Or dered By: Paulino Clemens on 10-19-2023 MCHC (RBC) [Mass/Vol] 33.6 g/dL 32.0-35.0 [facility] MCV Auto (RBC) [Entitic vol] Ordered By: Paulino Clemens on 10-19-2023 MCV (RBC) [Entitic vol] 86.4 fL 80-100 [facility] Monocytes Auto (Bld) [#/Vol] Ordered By: Paulino Clemens on 10-19-2023 Monocytes (Bld) [#/Vol] 0.4 10*3/uL 0.0-0.8 [facility] Monocytes/100 WBC Auto (Bld) Ordered By: Paulino Clemens on 10-19-2023 Monocytes/100 WBC (Bld) 6.6 % . [facility] Neutrophils Auto (Bld) [#/Vo l]Ordered By: Paulino Clemens on 10-19-2023 Neutrophils (Bld) [#/Vol] 4.1 10*3/uL 1.8-7.7 [facility] Neutrophils/100 WBC Auto (Bl d)Ordered By: Paulino Clemens on 10-19-2023 Neutrophils/100 WBC (Bld) 64.2 % . [facility] No Panel InformationOrdered By: Paulino Clemens on 10-19-2023 Estimated GFR (CKD-EPI) > 60.0 mL/Min [facility] Creatinine Clearance (Chem N/A [facility] Nucleated erythrocytes [Pres ence] in Blood by Automated countOrdered By: Paulino Clemens on 10-19-2023 Nucleated RBC Auto Ql (Bld) 0.1 /100{WBC} 0-0.5 [facility] Platelet mean volume Auto (B ld) [Entitic vol]Ordered By: Paulino Clemens on 10-19-2023 Platelet mean volume (Bld) [Entitic vol] 7.8 fL 6.3-10.7 [facility] Platelets Auto (Bld) [#/Vol] Ordered By: Paulino Clemens on 10-19-2023 Platelets (Bld) [#/Vol] 252 10*3/uL 150-450 [facility] Potassium [Moles/volume] in Serum or PlasmaOrdered By: Paulino Clemens on 10-19-2023 Potassium [Moles/Vol] 3.2 mmol/L 3.5-5.1 [facility] Protein [Mass/volume] in Ser um or PlasmaOrdered By: Paulino Clemens on 10-19-2023 Protein [Mass/Vol] 6.8 g/dL 6.4-8.9 [facility] RBC Auto (Bld) [#/Vol]Ordere d By: Paulino Clemens on 10-19-2023 RBC (Bld) [#/Vol] 5.02 10*6/uL 3.60-5.00 [facility] Serum or plasma albumin/glob ulin mass ratioOrdered By: Paulino Clemens on 10-19-2023 Albumin/Globulin [Mass ratio] 2.0 {ratio} [facility] Serum or plasma anion gap de terminationOrdered By: Paulino Clemens on 10-19-2023 Anion gap [Moles/Vol] 13.6 mmol/L 6.0-15.0 [facility] Sodium [Moles/volume] in Ser um or PlasmaOrdered By: Paulino Clemens on 10-19-2023 Sodium [Moles/Vol] 137 mmol/L 136-145 [facility] Urea nitrogen [Mass/volume] in Serum or PlasmaOrdered By: Paulino Clemens on 10-19-2023 Urea nitrogen [Mass/Vol] 24 mg/dL 02-21 [facility] WBC Auto (Bld) [#/Vol]Ordere d By: Paulino Sarath on 10-19-2023 WBC (Bld) [#/Vol] 6.4 10*3/uL 3.8-11.6 [facility] Retail - Clinical Noteon Retail - Clinical Note [id number] #1.00TIFF Normal [facility] CHEMISTRYOrdered By: Michelle Jacobo on 09-20-2023 HbA1c (Bld) [Mass fraction] 7.0 % High <=5.9% [facility] ChemAutoSS Consent for Treatmenton 09-01 Consent for Treatment [id number] #1.00TIFF Normal [facility] [id number] 09-20-2023 HbA1c (Bld) [Mass fraction] 7.0 % High <=5.9 [facility] Comment on above: Performed By: #### 7 [id number] ####[facility] [address] [place] [address] Family Medicine Office/Clini c Noteon 09-12-2023 Family [...] (06/19/23 09:45:00) Follow up for Mental Status: ANNELISE 03/03/23 JAYDA: 9 PHQ-9: 13 Medication adherence- [...] feel SOB. pt has never seen a trial consultant. Questions/Concerns: Needs refills on Ozempic, amlodipine, citalopram, [...] Daily, # 90 tab(s), Refills(s) 3, Pharmacy: [facility], 157.5, cm, 09/12/23 8:34:00 EST, Height/Length Dosing, 92.4, kg, 09/12/23 8:34:00 EST, Weight Dosing amlodipine, 10 mg = 1 tab(s), Oral, Daily, # 90 tab(s), Refills(s) 3, Pharmacy: [facility], 157.5, cm, 12/13/22 15:39:00 EDT, Height/Length Dosing, 93.9, kg, 12/13/22 15:39:00 EDT, Weight Dosing ciprofloxacin, 500 mg = 1 tab(s), Oral, q12hr, X 10 day(s), # 20 tab(s), Refills(s) 0, Pharmacy: [facility]/pharmacy #[id number], 157.5, cm, 06/19/23 9:21:00 EST, Height/Length Dosing, 92.6, kg, 06/19/23 9:21:00 EST, Weight Dosing citalopram, 20 mg = 1 tab(s), Oral, Daily, # 90 tab(s), Refills(s) 3, Pharmacy: [facility], 157.5, cm, 12/13/22 15:39:00 EDT, Height/Length Dosing, 93.9, kg, 12/13/22 15:39:00 EDT, Weight Dosing citalopram, 20 mg = 1 tab(s), Oral, Daily, # 90 tab(s), Refills(s) 3, Pharmacy: [facility], 157.5, cm, 09/12/23 8:34:00 EST, Height/Length Dosing, 92.4, kg, 09/12/23 8:34:00 EST, Weight Dosing dapagliflozin, 5 mg = 1 tab(s), Oral, Daily, # 90 tab(s), Refills(s) 3, Pharmacy: [facility], 157.5, cm, 09/12/23 8:34:00 EST, [...] cm, 12/13/22 15:39 (more content not included)... [facility] Comment on above: Result Comment: Elec tronically Signed By: Jessica Doe\.br\Date and Time Signed: 09/12/23 11:41 EST Retail - Clinical Noteon Retail - Clinical Note [id number] #1.00TIFF [facility] Formson 06-27-2023 Forms [id number] #1.00TIFF [facility] C Urineon 06-21-2023 Bacteria identified Cx Nom (U) Microbiology PROCEDURE: Urine Culture [R1] SOURCE: U CleanCatch BODY SITE: COLLECTED DATE/TIME: 06/19/2023 09:37 EST RECEIVED DATE/TIME: 06/19/2023 18:13 EST START DATE/TIME: 06/19/2023 18:13 EST FREE TEXT SOURCE: Jessica Doe Jodi L FINAL REPORTS Final Report [] Verified Date/Time: 06/21/2023 09:00 EST <10,000 cfu/ml Mixed skin contaminants Performing Locations R1: This test was performed at: [facility], [address] [place] [address], [address]- , [place], Normal [facility] Comment on above: Performed By: #### 2 [id number] ####[facility] [id number] [place] [id number] Ambulatory Visit Summaryon 1 08-19-2022 Ambulatory Visit Summary MIKEMARIA M :1970 Visit Date:06/19/2023 Ambulatory Visit Instructions Your Diagnosis Type 2 diabetes mellitus Left lower quadrant pain Left flank pain BMI 37.0-37.9, adult Non-smoker Tests Performed Urnls Dip Stick Auto w/o Microscopy POC 54609 Your Care Team Attending Physician - Jessica Doe Primary Care Physician - Jessica Doe This Is [facility]ations [facility] Prescription (Natural Thyroid) amlodipine (amLODIPine 10 mg [...] adult Non-smoker Duration: 7 Days Pickup at [facility]/pharmacy #0736 Unchanged amlodipine (amLODIPine 10 mg Tab) 1 [...] Capsules By Mouth Every day Pharmacy Information [facility]/pharmacy #[id number]: [address], [place] [phone] Test Results Urnls Dip Stick Auto w/o Microscopy POC 72111 (06/19/2023) Bilirubin Urine Dipstick - Negative Blood Urine Dipstick - Negative Glucose Urine Dipstick - 2+ 500 mg/dl Ketones Urine Dipstick - Negative Leukocytes Urine Dipstick - Negative Nitrite Urine Dipstick - Negative Protein Urine Dipstick - Negative Specific [place] Urine Dipstick - 1.020 Urine Appearance Urine [...] for choosing us for your care. Danielle [facility] Ambulatory Visit Summary MARIA M MCKEON :1970 Visit Date:06/19/2023 Ambulatory Visit Instructions Your Diagnosis Type 2 diabetes mellitus Left lower quadrant pain Left flank pain BMI 37.0-37.9, adult Non-smoker Tests Performed Urnls Dip Stick Auto w/o Microscopy POC 25709 Your Care Team Attending Physician - Jessica Doe Primary Care Physician - Jessica Doe This Is Your Medications List [facility] Prescription (Natural Thyroid) amlodipine (amLODIPine 10 mg [...] adult Non-smoker Duration: 7 Days Pickup at [facility]/pharmacy #5874 Unchanged amlodipine (amLODIPine 10 mg Tab) 1 [...] Capsules By Mouth Every day Pharmacy Information [facility]/pharmacy #[id number]: [address], [place] [phone] Test Results Urnls Dip Stick Auto w/o Microscopy POC 41738 (06/19/2023) Bilirubin Urine Dipstick - Negative Blood Urine Dipstick - Negative Glucose Urine Dipstick - 2+ 500 mg/dl Ketones Urine Dipstick - Negative Leukocytes Urine Dipstick - Negative Nitrite Urine Dipstick - Negative Protein Urine Dipstick - Negative Specific [place] Urine Dipstick - 1.020 Urine Appearance Urine [...] for choosing us for your care. Normal [facility] CHEMISTRYOrdered By: Cindy Michelle se on 06-19-2023 HbA1c (Bld) [Mass fraction] 7.9 % High <=5.9% [facility] ChemAutoSS Family Medicine Office/Clini c Noteon 06-19-2023 Family Medicine Office/Clinic Note HPI Staff Maria M is a 52 year old female presenting for 1 month follow up Sepsis secondary to UTI: [facility] pt was still fatigued and weak FMLA paperwork completed. Patient is here for follow up on Diabetes. How often are you checking your blood sugars? once every couple days What are your average readings? Fasting 170's Paresthesias, Ulcerations or sores? no Lisinopril, aspirin, statin therapy? Yes Last A1c: 02/13/23 7.6 had done at [facility]. Due today Questions/Concerns: no refills needed 2 [...] day(s), # 14 tab(s), Refills(s) 0, [id number] 157.5, cm, 06/19/23 9:21:00 EST, Height/Length Dosing, 92.6, kg, 06/19/23 9:21:00 EST, Weight Dosing HgbA1c Lab Specimen Collect [id number] Urine Culture 2. Left lower quadrant pain (R10.32: Left lower quadrant pain) urinalysis in office today. pt states she is having very similar symptoms when she was hospitalized for septic UTI. will treat with Cipro since we are going into holiday Ordered: ciprofloxacin, 500 mg = 1 tab(s), Oral, q12hr, X 7 day(s), # 14 tab(s), Refills(s) 0, [facility] 157.5, cm, 06/19/23 9:21:00 EST, Height/Length Dosing, 92.6, kg, 06/19/23 9:21:00 EST, Weight Dosing Urine Culture Urnls Dip Stick Auto w/o Microscopy POC 22538 3. Left flank pain (R10.9: Unspecified abdominal pain) see above Ordered: ciprofloxacin, 500 mg = 1 tab(s), Oral, q12hr, X 7 day(s), # 14 tab(s), Refills(s) 0, [id number] 157.5, cm, 06/19/23 9:21:00 EST, Height/Length Dosing, 92.6, kg, 06/19/23 9:21:00 EST, Weight Dosing Urine Culture Urnls Dip Stick Auto w/o Microscopy POC 64738 4. BMI 37.0-37.9, adult (Z68.37: Body mass index [BMI] 37.0-37.9, adult) BMI education complete Ordered: ciprofloxacin, 500 mg = 1 tab(s), Oral, q12hr, X 7 day(s), # 14 tab(s), Refills(s) 0, Pharmacy: [facility]/pharmacy #[id number], 157.5, cm, 06/19/23 9:21:00 EST, Height/Length Dosing, 92.6, kg, 06/19/23 9:21:00 EST, Weight Dosing Urine Culture 5. Non-smoker (Z78.9: Other specified health status) continue not smoking Ordered: ciprofloxacin, 500 mg = 1 tab(s), Oral, q12hr, X 7 day(s), # 14 tab(s), Refills(s) 0, Pharmacy: [facility]/pharmacy #6177, 157.5, cm, 06/19/23 9:21:00 EST, Height/Length Dosing, 92.6, kg, 06/19/23 9:21:00 EST, Weight Dosing Lab Specimen Collect [id number] Urine Culture Follow-up No qualifying data available [...] surgery, Ot (more content not included)... Normal [facility] Comment on above: Result Comment: Elec tronically Signed By: Jessica Doe\.br\Date and Time Signed: 06/19/23 09:49 EST [id number] 06-19-2023 HbA1c (Bld) [Mass fraction] 7.9 % High <=5.9 [facility] Comment on above: Performed By: #### 7 [id number] ####[facility] [id number] [place] [address] Formson 06-01-2023 Forms [id number] #1.00TIFF Danielle [facility] Population Healthon 05-31-20 Population Health Case Information Case Priority: None Programs: -- Referral Source: [facility] Referral Reason: Care coordination Case Type: Transition Care Management Risk Score: -- Case Status: Enrolled (May 15, 2023) Date Assigned: May 15, 2023 Assigned By: Nishi Stephens RN Date Enrolled: May 15, 2023 Assigned Primary Personnel: Nishi Stephens RN Assigned Secondary Personnel: Amber COLINDRES, Susan; [place] Case Physician: Jessica Doe Problems [...] (min): 5 Outcome: Case discussion Contact Type: office services coordinator Contact Name: Nishi Stephens RN Notes: TCM #3, see FT summary note. Created By: Nishi Stephens RN Date: May 26, 2023 Method: Phone call Type: Outbound Duration (min): 1 Outcome: Left message-voicemail Contact Type: office services coordinator Contact Name: Susan Clark RN Notes: [...] (min): -- Outcome: Left message-voicemail Contact Type: office services coordinator Contact Name: Nishi Stephens RN Notes: Attempted to call patient for TCM #1, no answer, left message asking for a return call. Created By: Nishi Stephens RN [facility] Formson 05-23-2023 Forms [id number] #1.00TIFF [facility] Ambulatory Visit Summaryon 1 Ambulatory Visit Summary MARIA M MCKEON :1970 Visit Date:05/22/2023 Ambulatory Visit Instructions Your Diagnosis Sepsis secondary to UTI Diabetes BMI 36.0-36.9,adult Non-smoker Urinary tract infection, site not specified Your Care Team Attending Physician - Jessica Doe Primary Care Physician - Jessica Doe This Is Your Medications List [facility] Prescription (Natural Thyroid) amlodipine (amLODIPine 10 mg [...] 9:20 AM EST With: Jessica Doe Where: [facility] Family Medicine Office/Clini c Noteon 05-22-2023 [...] weeks to have HGBA1C checked. will complete [place] paperwork and fax to appropriate number. 2. [...] Oral, Daily Allergies Latex Macrodantin (Unknown) Percocet 10 (Vomiting) Vicodin (Vomiting) sulfamethoxazole (Rash) Social History Alcohol - Low Risk, 02/13/2012 Current, 1-2 times per month, 08/06/2020 Substance Abuse - Denies Substance Abuse, 02/13/2012 Tobacco - Denies Tobacco Use, 02/13/2012 Never (less than 100 in lifetime) Tobacco Use:. Never Smokeless Tobacco Use:. Househ (more content not included)... [facility] Comment on above: Result Comment: Elec tronically Signed By: Jessica Doe\.br\Date and Time Signed: 05/22/23 09:34 EDT Provider Letteron 05-22-2023 Provider Letter May 22, [address] [place] [address] [place] [address] : 1970 To Whom It May Concern, Please excuse above patient from work. Date of Illness: From: 05.22.2023 To: 05.22.2023 May Return to Work On: 05.22.2023 Sincerely, JANE Chandler [place] [id number] [facility] RAD - CT Reporton 05-17-[address] - [address] Report [id number] #1.00TIFF [facility] Ambulatory Visit Summaryon 1 Ambulatory Visit Summary MARIA M MCKEON :1970 Visit Date:05/16/2023 Ambulatory Visit Instructions Your Diagnosis BMI 36.0-36.9,adult Non-smoker Your Care Team Attending Physician - Jessica Doe Primary Care Physician - Jessica Doe This Is Your Medications List [facility] Prescription (Natural Thyroid) amlodipine (amLODIPine 10 mg [...] incontinence UTI symptoms Weak urine stream Normal [facility] Medicine Office/Clini c Noteon 05-16-2023 Family Medicine Office/Clinic Note HPI Staff Maria M is a 52 year old female presenting to TCM follow up TCM: Hospital: [facility] Admission date: 05/13/23 Discharge date: 05/14/23 [...] fluids it seemed to subside. Pt brought [facility] paperwork if that could be filled out [...] she can rest and heal. will complete FMLA paper work . she will return to [...] TCM Trans care mgmt 7 day disch [id number] 3. Non-smoker (Z78.9: Other specified health status) continue not smoking Ordered: TCM Trans care mgmt 7 day disch 28521 Urinary tract infection, site not specified (N39.0: [...] 100 in (more content not included)... Normal [facility] Comment on above: Result Comment: Elec tronically Signed By: Jessica Doe\.br\Date and Time Signed: 05/16/23 12:17 EDT [facility] 05-15-20 [facility] Case Information Case Priority: None Programs: -- Referral Source: [facility]merist Referral Reason: Care coordination Case Type: Transition [...] Care Plan Progress Note Admit Date: 05/13/23 [facility] Date of Discharge: 05/14/23 Follow-up appointment scheduled? yes, 05/17/23 at [facility] with Katrina Dasilva Did you understand your [...] for Transitional Care Management following hospitalization at [facility] for UTI, sepsis, hypokalemia and weakness. [...] Case discussion Contact Type: Patient Contact Name: MIKE MARIA M C Notes: TCM #1, see FT summary note Created By: Nishi Stephens RN Date: May 15, 2023 Method: Phone call Type: Outbound Duration (min): -- Outcome: Left message-voicemail Contact Type: office services coordinator Contact Name: Nishi Stephens RN Notes: Attempted to call patient for TCM #1, no answer, left message asking for a return call. Created By: Nishi Stephens RN [facility] Pre-Certification Formon Pre-Certification Form [id number] #1.00CD:127 Normal [facility] COVID Quick Testingon 2022 Result Negative [employer] Other SARS-CoV-2 (COVID-19) RNA NA A+probe Ql (Resp)on 03-13-2023 SARS-CoV-2 (COVID-19) RNA VON+probe Ql (Unsp spec) Negative [employer] [facility] [employer] Other Family Medicine Office/Clini c Noteon 03-06-2023 Family Medicine Office/Clinic Note HPI Staff Maria M is a 52 year old female presenting to [facility] care Establish Care: History: Any previous [...] last few months. Pt went to see director of cardiac cath lab on Monday and diabetic eye exam was [...] capsule, 4 (more content not included)... Normal [facility] Comment on above: Result Comment: Elec tronically Signed By: Jessica Doe\.br\Date and Time Signed: 03/06/23 10:00 EDT Lab Reportson 03-06-2023 Lab Reports [id number] #1.00CD:127 Normal [facility] Ambulatory Visit Summaryon 0 03-03-2023 Ambulatory Visit Summary MIKEMARIA M :1970 Visit Date:03/03/2023 Ambulatory Visit Instructions Your Diagnosis Type 2 diabetes mellitus Elevated hemoglobin A1c Hypertension BMI 37.0-37.9, adult Non-smoker Your Care Team Attending Physician - Jessica Doe Primary Care Physician - Jessica Doe This Is Your Medications List [facility] Prescription (Natural Thyroid) amlodipine (amLODIPine 10 mg [...] 3:20 PM EDT With: Jessica Doe Where: [facility] [place] Normal [facility] Mononucleosis Test, Qual[place] 0 02-22-2023 Heterophile Ab [place] Ql (S) Negative [employer] Other Quick Strepon 02-22-2023 S. pyogenes Org specific cx Ql (Throat) Negative [facility] [employer] Other Quick Strep [facility] [employer] Other EBS A1C with Estimated Ave Rach luon 02-13-2023 Glucose [Mass/Vol] 171 mg/dL Normal [facility] Comment on above: Result Comment: PERF ORMED BY: [facility] [address] [place] [address] PATHOLOGIST SENIOR LITIGATION PARALEGAL ADRIENNE DRAPER M.D. Performed By: #### A SO, EBVNA, EBVEAG, EBV VCAIGG, EBV VCAIGM #### [facility] , #### CMP, ESR, CRP, CBC #### [facility] [address] HbA1c (Bld) [Mass fraction] 7.6 % High 4.3-5.6 [facility] Comment on above: Result Comment: Incr eased risk for diabetes: 5.7 - 6.4 diabetes: >6.4 glycemic control for adults with diabetes: <7.0 Performed By: #### A SO, EBVNA, EBVEAG, EBV VCAIGG, EBV VCAIGM #### [facility] , #### CMP, ESR, CRP, CBC #### [facility] [address] [place] [address] [place] Employee Comp Metabolic Pane yadira 02-13-2023 Albumin [Mass/Vol] 4.2 g/dL Normal 3.5-5.7 [facility] Comment on above: Performed By: #### A SO, EBVNA, EBVEAG, EBV VCAIGG, EBV VCAIGM #### [facility] , #### CMP, ESR, CRP, CBC #### [address] Albumin/Globulin [Mass ratio] 1.5 {ratio} Normal [facility] Comment on above: Performed By: #### A SO, EBVNA, EBVEAG, EBV VCAIGG, EBV VCAIGM #### [facility] , #### CMP, ESR, CRP, CBC #### [address] ALP [Catalytic activity/Vol] 59 U/L Normal 34-104 [facility] Comment on above: Performed By: #### A SO, EBVNA, EBVEAG, EBV VCAIGG, EBV VCAIGM #### [facility] , #### CMP, ESR, CRP, CBC #### [address] ALT [Catalytic activity/Vol] 17 U/L Normal 7-52 [facility] Comment on above: Performed By: #### A SO, EBVNA, EBVEAG, EBV VCAIGG, EBV VCAIGM #### [facility] , #### CMP, ESR, CRP, CBC #### [address] Anion gap [Moles/Vol] 13.8 mmol/L Normal 6.0-15.0 [facility] Comment on above: Performed By: #### A SO, EBVNA, EBVEAG, EBV VCAIGG, EBV VCAIGM #### [facility] , #### CMP, ESR, CRP, CBC #### [address] AST [Catalytic activity/Vol] 27 U/L Normal 13-39 [facility] Comment on above: Performed By: #### A SO, EBVNA, EBVEAG, EBV VCAIGG, EBV VCAIGM #### [facility] , #### CMP, ESR, CRP, CBC #### [address] Bilirubin [Mass/Vol] 0.5 mg/dL Normal 0.3-1.0 [facility] Comment on above: Performed By: #### A SO, EBVNA, EBVEAG, EBV VCAIGG, EBV VCAIGM #### [facility] , #### CMP, ESR, CRP, CBC #### [address] Calcium [Mass/Vol] 9.2 mg/dL Normal 8.6-10.3 [facility] Comment on above: Performed By: #### A SO, EBVNA, EBVEAG, EBV VCAIGG, EBV VCAIGM #### [facility] , #### CMP, ESR, CRP, CBC #### [address] Chloride [Moles/Vol] 100 mmol/L Normal 98-107 [facility] Comment on above: Performed By: #### A SO, EBVNA, EBVEAG, EBV VCAIGG, EBV VCAIGM #### [facility] , #### CMP, ESR, CRP, CBC #### [address] CO2 [Moles/Vol] 25.6 mmol/L Normal 21.0-31.0 [facility] Comment on above: Performed By: #### A SO, EBVNA, EBVEAG, EBV VCAIGG, EBV VCAIGM #### [facility] , #### CMP, ESR, CRP, CBC #### [facility] [address] [place] [address] Creatinine [Mass/Vol] 0.71 mg/dL Normal 0.60-1.20 [facility] Comment on above: Performed By: #### A SO, EBVNA, EBVEAG, EBV VCAIGG, EBV VCAIGM #### [facility] , #### CMP, ESR, CRP, CBC #### [address] GFR/1.73 sq M.predicted MDRD (S/P/Bld) [Vol rate/Area] mL/min/{1.73_m2} Normal [facility] Comment on above: Performed By: #### A SO, EBVNA, EBVEAG, EBV VCAIGG, EBV VCAIGM #### [facility] , #### CMP, ESR, CRP, CBC #### [address] Globulin (S) [Mass/Vol] 2.8 g/dL Normal [facility] Comment on above: Performed By: #### A SO, EBVNA, EBVEAG, EBV VCAIGG, EBV VCAIGM #### [facility] , #### CMP, ESR, CRP, CBC #### [address] Glucose [Mass/Vol] 131 mg/dL High 70-100 [facility] Comment on above: Result Comment: ADA recommended reference range Performed By: #### A SO, EBVNA, EBVEAG, EBV VCAIGG, EBV VCAIGM #### [facility] , #### CMP, ESR, CRP, CBC #### [address] Potassium [Moles/Vol] 3.4 mmol/L Low 3.5-5.1 [facility] Comment on above: Performed By: #### A SO, EBVNA, EBVEAG, EBV VCAIGG, EBV VCAIGM #### [facility] , #### CMP, ESR, CRP, CBC #### [address] Protein [Mass/Vol] 7.0 g/dL Normal 6.4-8.9 [facility] Comment on above: Performed By: #### A SO, EBVNA, EBVEAG, EBV VCAIGG, EBV VCAIGM #### [facility] , #### CMP, ESR, CRP, CBC #### [address] Sodium [Moles/Vol] 136 mmol/L Normal 136-145 [facility] Comment on above: Performed By: #### A SO, EBVNA, EBVEAG, EBV VCAIGG, EBV VCAIGM #### [facility] , #### CMP, ESR, CRP, CBC #### [address] Urea nitrogen [Mass/Vol] 20 mg/dL Normal 7-25 [facility] Comment on above: Performed By: #### A SO, EBVNA, EBVEAG, EBV VCAIGG, EBV VCAIGM #### [facility] , #### CMP, ESR, CRP, CBC #### [address] Employee Complete Blood Coun ton 02-13-2023 Basophils (Bld) [#/Vol] 0.0 10*3/uL Normal 0.0-0.2 [facility] Comment on above: Result Comment: PERF ORMED BY: [place] [address] PATHOLOGIST SENIOR LITIGATION PARALEGAL ADRIENNE DRAPER M.D. Performed By: #### P ILLAR LIPID, EBS A1C, PILLAR CBC, PILLAR CMP, PILLAR LDLD, PILLAR TSH #### [address] #### NICOTINE QUAL #### [facility] , Basophils/100 WBC (Bld) 0.4 % Normal . [facility] Comment on above: Performed By: #### P ILLAR LIPID, EBS A1C, PILLAR CBC, PILLAR CMP, PILLAR LDLD, PILLAR TSH #### [address] #### NICOTINE QUAL #### [facility] , Eosinophils (Bld) [#/Vol] 0.3 10*3/uL Normal 0.0-0.45 [facility] Comment on above: Performed By: #### P ILLAR LIPID, EBS A1C, PILLAR CBC, PILLAR CMP, PILLAR LDLD, PILLAR TSH #### [facility] [address] [place] [address] #### NICOTINE QUAL #### [facility] , Eosinophils/100 WBC (Bld) 5.4 % Normal . [facility] Comment on above: Performed By: #### P ILLAR LIPID, EBS A1C, PILLAR CBC, PILLAR CMP, PILLAR LDLD, PILLAR TSH #### [facility] [address] [place] [address] #### NICOTINE QUAL #### [facility] , Erythrocyte distribution width (RBC) [Ratio] 13.7 % Normal 11.9-15.3 [facility] Comment on above: Performed By: #### P ILLAR LIPID, EBS A1C, PILLAR CBC, PILLAR CMP, PILLAR LDLD, PILLAR TSH #### [facility] [address] [place] [address] #### NICOTINE QUAL #### [facility] , Hematocrit (Bld) [Volume fraction] 43.7 % Normal 34.0-46.4 [facility] Comment on above: Performed By: #### P ILLAR LIPID, EBS A1C, PILLAR CBC, PILLAR CMP, PILLAR LDLD, PILLAR TSH #### [facility] [address] [place] [address] [place] #### NICOTINE QUAL #### [facility] , Hemoglobin (Bld) [Mass/Vol] 15.0 g/dL Normal 11.8-15.4 [facility] Comment on above: Performed By: #### P ILLAR LIPID, EBS A1C, PILLAR CBC, PILLAR CMP, PILLAR LDLD, PILLAR TSH #### [facility] [address] [place] [address] [place] #### NICOTINE QUAL #### [facility] , Lymphocytes (Bld) [#/Vol] 1.8 10*3/uL Normal 1.00-4.8 [facility] Comment on above: Performed By: #### P ILLAR LIPID, EBS A1C, PILLAR CBC, PILLAR CMP, PILLAR LDLD, PILLAR TSH #### [facility] [address] [place] [address] [place] #### NICOTINE QUAL #### [facility] , Lymphocytes/100 WBC (Bld) 37.2 % Normal . [facility] Comment on above: Performed By: #### P ILLAR LIPID, EBS A1C, PILLAR CBC, PILLAR CMP, PILLAR LDLD, PILLAR TSH #### [facility] [address] [place] [address] #### NICOTINE QUAL #### [facility] , MCH (RBC) [Entitic mass] 28.9 pg Normal 24.7-34.3 [facility] Comment on above: Performed By: #### P ILLAR LIPID, EBS A1C, PILLAR CBC, PILLAR CMP, PILLAR LDLD, PILLAR TSH #### [facility] [address] [place] [address] [place] #### NICOTINE QUAL #### [facility] , MCV (RBC) [Entitic vol] 84.0 fL Normal 80-100 F [facility] Comment on above: Performed By: #### P ILLAR LIPID, EBS A1C, PILLAR CBC, PILLAR CMP, PILLAR LDLD, PILLAR TSH #### [facility] [address] [place] [address] [place] #### NICOTINE QUAL #### [facility] , Mean Corpuscular HGB Conc 34.4 g/dL Normal 32.0-35.0 [facility] Comment on above: Performed By: #### P ILLAR LIPID, EBS A1C, PILLAR CBC, PILLAR CMP, PILLAR LDLD, PILLAR TSH #### [place] [address] [place] #### NICOTINE QUAL #### [facility] , Monocytes (Bld) [#/Vol] 0.5 10*3/uL Normal 0.0-0.8 [facility] Comment on above: Performed By: #### P ILLAR LIPID, EBS A1C, PILLAR CBC, PILLAR CMP, PILLAR LDLD, PILLAR TSH #### [facility] [address] [place] [address] [place] #### NICOTINE QUAL #### [facility] , Monocytes/100 WBC (Bld) 9.7 % Normal . [facility] Comment on above: Performed By: #### P ILLAR LIPID, EBS A1C, PILLAR CBC, PILLAR CMP, PILLAR LDLD, PILLAR TSH #### [address] #### NICOTINE QUAL #### [facility] , Neutrophils (Bld) [#/Vol] 2.3 10*3/uL Normal 1.8-7.7 [facility] Comment on above: Performed By: #### P ILLAR LIPID, EBS A1C, PILLAR CBC, PILLAR CMP, PILLAR LDLD, PILLAR TSH #### [place] [address] [place] #### NICOTINE QUAL #### [facility] , Neutrophils/100 WBC (Bld) 47.3 % Normal . [facility] Comment on above: Performed By: #### P ILLAR LIPID, EBS A1C, PILLAR CBC, PILLAR CMP, PILLAR LDLD, PILLAR TSH #### [facility] [address] [place] [address] [place] #### NICOTINE QUAL #### [facility] , NRBC% 0.2 /100{WBC} Normal 0-0.5 [facility] Comment on above: Performed By: #### P ILLAR LIPID, EBS A1C, PILLAR CBC, PILLAR CMP, PILLAR LDLD, PILLAR TSH #### [facility] [address] [place] [address] [place] #### NICOTINE QUAL #### [facility] , Platelet mean volume (Bld) [Entitic vol] 7.8 fL Normal 6.3-10.7 [facility] Comment on above: Performed By: #### P ILLAR LIPID, EBS A1C, PILLAR CBC, PILLAR CMP, PILLAR LDLD, PILLAR TSH #### [facility] [address] [place] [address] [place] #### NICOTINE QUAL #### [facility] , Platelets (Bld) [#/Vol] 245 10*3/uL Normal 150-450 [facility] Comment on above: Performed By: #### P ILLAR LIPID, EBS A1C, PILLAR CBC, PILLAR CMP, PILLAR LDLD, PILLAR TSH #### [facility] [address] [place] [address] #### NICOTINE QUAL #### [facility] , RBC (Bld) [#/Vol] 5.20 10*6/uL High 3.60-5.00 [facility] Comment on above: Performed By: #### P ILLAR LIPID, EBS A1C, PILLAR CBC, PILLAR CMP, PILLAR LDLD, PILLAR TSH #### [facility] [address] [place] [address] #### NICOTINE QUAL #### [facility] , WBC (Bld) [#/Vol] 4.8 10*3/uL Normal 3.8-11.6 [facility] Comment on above: Performed By: #### P ILLAR LIPID, EBS A1C, PILLAR CBC, PILLAR CMP, PILLAR LDLD, PILLAR TSH #### [facility] [address] [place] [address] [place] #### NICOTINE QUAL #### [facility] , Employee LDL Chol Measuredon 02-13-2023 Employee LDL Chol Measured 99 mg/dL Normal 0-100 [facility] Comment on above: Result Comment: LDL ATP III CLASSIFICATION LDL less than 100 mg/dL Optimal LDL 100-129 mg/dL Near or above optimal LDL 130-159 mg/dL Borderline high LDL 160-189 mg/dL High LDL greater than 189 mg/dL Very high Performed By: #### A SO, EBVNA, EBVEAG, EBV VCAIGG, EBV VCAIGM #### [facility] , #### CMP, ESR, CRP, CBC #### [facility] [address] Employee Lipid Profileon Cholesterol [Mass/Vol] 215 mg/dL High 140-200 [facility] Comment on above: Result Comment: Chol less than 200 mg/dl low risk Chol 201-239 mg/dl borderline risk Chol 240 mg/dl and greater high risk Performed By: #### A SO, EBVNA, EBVEAG, EBV VCAIGG, EBV VCAIGM #### [facility] , #### CMP, ESR, CRP, CBC #### [facility] [address] [place] [address] Cholesterol in HDL [Mass/Vol] 34 mg/dL Normal 23-92 [facility] Comment on above: Result Comment: HDL CHOL ATP-III CLASSIFICATION Cardiovascular Risk HDL > or equal to 60 mg/dL LOW HDL < 40 mg/dL HIGH Performed By: #### A SO, EBVNA, EBVEAG, EBV VCAIGG, EBV VCAIGM #### [facility] , #### CMP, ESR, CRP, CBC #### [facility] [address] [place] [address] Cholesterol.total/Eulalia sterol in HDL [Mass ratio] 6.3 {ratio} Normal <5.0 [facility] Comment on above: Performed By: #### A SO, EBVNA, EBVEAG, EBV VCAIGG, EBV VCAIGM #### [facility] , #### CMP, ESR, CRP, CBC #### [facility] [address] LDL Cholesterol,Calculated Not performed Normal 0-100 [facility] Comment on above: Performed By: #### A SO, EBVNA, EBVEAG, EBV VCAIGG, EBV VCAIGM #### [facility] , #### CMP, ESR, CRP, CBC #### [address] Triglyceride w/Reflex 482 mg/dL High 0-149 [facility] Comment on above: Result Comment: TRIG [...] , #### CMP, ESR, CRP, CBC #### [address] VLDL CHOLESTEROL 96 mg/dL Normal [facility] Comment on above: Performed By: #### A SO, EBVNA, EBVEAG, EBV VCAIGG, EBV VCAIGM #### [facility] , #### CMP, ESR, CRP, CBC #### [address] Employee Thyroid Stim Hormon rohan 02-13-2023 Employee Thyroid Stim Hormone 1.38 u[iU]/mL Normal 0.45-5.33 [facility] Comment on above: Result Comment: PERF ORMED BY: [place] [address] PATHOLOGIST SENIOR LITIGATION PARALEGAL ADRIENNE DRAPER M.D. Performed By: #### A SO, EBVNA, EBVEAG, EBV VCAIGG, EBV VCAIGM #### [facility] , #### CMP, ESR, CRP, CBC #### [address] Nicotine Metabolite, Qual[place] 02-13-2023 Nicotine Metabolite Negative Normal Cutoff=25 [facility] Comment on above: Result Comment: Perf ormed at: BN - [facility] [address] [id number] Supervisor Drying And Softening: Huy Montez MD, Phone: [phone] PERFORMED BY: [place] [id number] PATHOLOGIST SENIOR LITIGATION PARALEGAL ADRIENNE DRAPER M.D. Performed By: #### A SO, EBVNA, EBVEAG, EBV VCAIGG, EBV VCAIGM #### [facility] , #### CMP, ESR, CRP, CBC #### [facility] [address] [place], [place] [id number] [place] Anti-Streptolysin O Antibody on 01-05-2023 Anti-Streptolysin O Antibody <20.0 Normal 0.0-200.0 [facility] Comment on above: Order Comment: Reaso n for Exam Rash and nonspecific skin eruption Result Comment: Perf ormed at: CB - [facility] [address] [id number] Supervisor Drying And Softening: Kings Robles PhD, Phone: [phone] Performed By: #### A SO, EBVNA, EBVEAG, EBV VCAIGG, EBV VCAIGM #### [facility] , #### CMP, ESR, CRP, CBC #### [facility] [address] [place], [place] [id number] [place] Anti-Streptolysin O Antibody <20.0 0.0-200.0 [employer] Other C-Reactive Proteinon 023 C-Reactive Protein 1.5 mg/dL High 0.0-0.5 [facility] Comment on above: Order Comment: Reaso n for Exam Rash and nonspecific skin eruption Result Comment: PERF ORMED BY: [place] [id number] PATHOLOGIST SENIOR LITIGATION PARALEGAL ADRIENNE DRAPER M.D. Performed By: #### A SO, EBVNA, EBVEAG, EBV VCAIGG, EBV VCAIGM #### [facility] , #### CMP, ESR, CRP, CBC #### [facility] [address] C-Reactive Protein 1.5 mg/dL High 0.0-0.5 mg/dL [employer] Other Complete Blood Count Auto Di ffon 01-05-2023 Basophils (Bld) [#/Vol] 0.1 10*3/uL Normal 0.0-0.2 [facility] Comment on above: Order Comment: Reaso n for Exam Rash and nonspecific skin eruption Performed By: #### A SO, EBVNA, EBVEAG, EBV VCAIGG, EBV VCAIGM #### [facility] , #### CMP, ESR, CRP, CBC #### [facility] [address] [place] [address] [place] Basophils/100 WBC (Bld) 1.4 % Normal . [facility] Comment on above: Order Comment: Reaso n for Exam Rash and nonspecific skin eruption Performed By: #### A SO, EBVNA, EBVEAG, EBV VCAIGG, EBV VCAIGM #### [facility] , #### CMP, ESR, CRP, CBC #### [facility] [address] [place] [address] [place] Eosinophils (Bld) [#/Vol] 0.2 10*3/uL Normal 0.0-0.45 [facility] Comment on above: Order Comment: Reaso n for Exam Rash and nonspecific skin eruption Performed By: #### A SO, EBVNA, EBVEAG, EBV VCAIGG, EBV VCAIGM #### [facility] , #### CMP, ESR, CRP, CBC #### [facility] [address] [place] [address] [place] Eosinophils/100 WBC (Bld) 2.1 % Normal . [facility] Comment on above: Order Comment: Reaso n for Exam Rash and nonspecific skin eruption Performed By: #### A SO, EBVNA, EBVEAG, EBV VCAIGG, EBV VCAIGM #### [facility] , #### CMP, ESR, CRP, CBC #### [address] Erythrocyte distribution width (RBC) [Ratio] 13.5 % Normal 11.9-15.3 [facility] Comment on above: Order Comment: Reaso n for Exam Rash and nonspecific skin eruption Performed By: #### A SO, EBVNA, EBVEAG, EBV VCAIGG, EBV VCAIGM #### [facility] , #### CMP, ESR, CRP, CBC #### [address] Hematocrit (Bld) [Volume fraction] 45.8 % Normal 34.0-46.4 [facility] Comment on above: Order Comment: Reaso n for Exam Rash and nonspecific skin eruption Performed By: #### A SO, EBVNA, EBVEAG, EBV VCAIGG, EBV VCAIGM #### [facility] , #### CMP, ESR, CRP, CBC #### [address] Hemoglobin (Bld) [Mass/Vol] 16.3 g/dL High 11.8-15.4 [facility] Comment on above: Order Comment: Reaso n for Exam Rash and nonspecific skin eruption Performed By: #### A SO, EBVNA, EBVEAG, EBV VCAIGG, EBV VCAIGM #### [facility] , #### CMP, ESR, CRP, CBC #### [address] Lymphocytes (Bld) [#/Vol] 2.1 10*3/uL Normal 1.00-4.8 [facility] Comment on above: Order Comment: Reaso n for Exam Rash and nonspecific skin eruption Performed By: #### A SO, EBVNA, EBVEAG, EBV VCAIGG, EBV VCAIGM #### [facility] , #### CMP, ESR, CRP, CBC #### [address] Lymphocytes/100 WBC (Bld) 24.7 % Normal . [facility] Comment on above: Order Comment: Reaso n for Exam Rash and nonspecific skin eruption Performed By: #### A SO, EBVNA, EBVEAG, EBV VCAIGG, EBV VCAIGM #### [facility] , #### CMP, ESR, CRP, CBC #### [address] MCH (RBC) [Entitic mass] 30.2 pg Normal 24.7-34.3 [facility] Comment on above: Order Comment: Reaso n for Exam Rash and nonspecific skin eruption Performed By: #### A SO, EBVNA, EBVEAG, EBV VCAIGG, EBV VCAIGM #### [facility] , #### CMP, ESR, CRP, CBC #### [address] MCV (RBC) [Entitic vol] 85.0 fL Normal 80-100 F [facility] Comment on above: Order Comment: Reaso n for Exam Rash and nonspecific skin eruption Performed By: #### A SO, EBVNA, EBVEAG, EBV VCAIGG, EBV VCAIGM #### [facility] , #### CMP, ESR, CRP, CBC #### [address] Mean Corpuscular HGB Conc 35.5 g/dL High 32.0-35.0 [facility] Comment on above: Order Comment: Reaso n for Exam Rash and nonspecific skin eruption Performed By: #### A SO, EBVNA, EBVEAG, EBV VCAIGG, EBV VCAIGM #### [facility] , #### CMP, ESR, CRP, CBC #### [address] Monocytes (Bld) [#/Vol] 0.6 10*3/uL Normal 0.0-0.8 [facility] Comment on above: Order Comment: Reaso n for Exam Rash and nonspecific skin eruption Performed By: #### A SO, EBVNA, EBVEAG, EBV VCAIGG, EBV VCAIGM #### [facility] , #### CMP, ESR, CRP, CBC #### [facility] [address] [place] [address] [place] Monocytes/100 WBC (Bld) 7.0 % Normal . [facility] Comment on above: Order Comment: Reaso n for Exam Rash and nonspecific skin eruption Performed By: #### A SO, EBVNA, EBVEAG, EBV VCAIGG, EBV VCAIGM #### [facility] , #### CMP, ESR, CRP, CBC #### [place] [address] [place] Neutrophils (Bld) [#/Vol] 5.4 10*3/uL Normal 1.8-7.7 [facility] Comment on above: Order Comment: Reaso n for Exam Rash and nonspecific skin eruption Performed By: #### A SO, EBVNA, EBVEAG, EBV VCAIGG, EBV VCAIGM #### [facility] , #### CMP, ESR, CRP, CBC #### [facility] [address] [place] [address] [place] Neutrophils/100 WBC (Bld) 64.8 % Normal . [facility] Comment on above: Order Comment: Reaso n for Exam Rash and nonspecific skin eruption Performed By: #### A SO, EBVNA, EBVEAG, EBV VCAIGG, EBV VCAIGM #### [facility] , #### CMP, ESR, CRP, CBC #### [facility] [address] [place] [address] [place] NRBC% 0.5 /100{WBC} Normal 0-0.5 [facility] Comment on above: Order Comment: Reaso n for Exam Rash and nonspecific skin eruption Performed By: #### A SO, EBVNA, EBVEAG, EBV VCAIGG, EBV VCAIGM #### [facility] , #### CMP, ESR, CRP, CBC #### [facility] [address] [place] [id number] [facility] Platelet mean volume (Bld) [Entitic vol] 7.9 fL Normal 6.3-10.7 [facility] Comment on above: Order Comment: Reaso n for Exam Rash and nonspecific skin eruption Performed By: #### A SO, EBVNA, EBVEAG, EBV VCAIGG, EBV VCAIGM #### [facility] , #### CMP, ESR, CRP, CBC #### [facility] [address] [place] [id number] [facility] Platelets (Bld) [#/Vol] 302 10*3/uL Normal 150-450 [employer] Other Comment on above: Order Comment: Reaso n for Exam Rash and nonspecific skin eruption Performed By: #### A SO, EBVNA, EBVEAG, EBV VCAIGG, EBV VCAIGM #### [facility] , #### CMP, ESR, CRP, CBC #### [facility] [address] [place] [id number] [facility] RBC (Bld) [#/Vol] 5.39 10*6/uL High 3.60-5.00 [employer] Other Comment on above: Order Comment: Reaso n for Exam Rash and nonspecific skin eruption Performed By: #### A SO, EBVNA, EBVEAG, EBV VCAIGG, EBV VCAIGM #### [facility] , #### CMP, ESR, CRP, CBC #### [facility] [address] [place] [id number] [place] WBC (Bld) [#/Vol] 8.4 10*3/uL Normal 3.8-11.6 [facility] Comment on above: Order Comment: Reaso n for Exam Rash and nonspecific skin eruption Performed By: #### A SO, EBVNA, EBVEAG, EBV VCAIGG, EBV VCAIGM #### [facility] , #### CMP, ESR, CRP, CBC #### [facility] [address] Basophils (Bld) [#/Vol] 0.920880963 10*3/uL Normal 0.0-0.2 10*3/uL [employer] Other Basophils/100 WBC (Bld) 1.400 % . % N [facility] Other Eosinophils (Bld) [#/Vol] 0.234331984 10*3/uL Normal 0.0-0.45 10*3/uL [employer] Other Eosinophils/100 WBC (Bld) 2.100 % . % [employer] Other Erythrocyte distribution width (RBC) [Ratio] 13.500 % Normal 11.9-15.3 % [employer] Other Hematocrit (Bld) [Volume fraction] 45.800 % Normal 34.0-46.4 % [employer] Other Hemoglobin (Bld) [Mass/Vol] 16.281618 g/dL High 11.8-15.4 g/dL [employer] Other Lymphocytes (Bld) [#/Vol] 2.613435185 10*3/uL Normal 1.00-4.8 10*3/uL [employer] Other Lymphocytes/100 WBC (Bld) 24.700 % . % [employer] Other MCH (RBC) [Entitic mass] 30.2000 pg Normal 24.7-34.3 pg [employer] Other MCV (RBC) [Entitic vol] 85.0000 fL Normal 80-100 fL N [employer] Other Monocytes (Bld) [#/Vol] 0.423732823 10*3/uL Normal 0.0-0.8 10*3/uL [employer] Other Monocytes/100 WBC (Bld) 7.000 % . % N [facility] [employer] Other Neutrophils (Bld) [#/Vol] 5.073478717 10*3/uL Normal 1.8-7.7 10*3/uL [employer] Other Neutrophils/100 WBC (Bld) 64.800 % . % [employer] Other Platelet mean volume (Bld) [Entitic vol] 7.9000 fL Normal 6.3-10.7 fL [employer] Other WBC (Bld) [#/Vol] 8.274953546 10*3/uL Normal 3.8 -11.6 10*3/uL [employer] Other Complete Blood Count Auto Diff 8.4 10*3/uL Normal 3.8-11.6 10*3/uL [employer] Other Complete Blood Count Auto Diff 35.5 g/dL High 32.0-35.0 g/dL [employer] Other Complete Blood Count Auto Diff 0.5 /100{WBC} Normal 0-0.5 /100{WBC} [employer] Other Comprehensive Metabolic Pane [facility] 01-05-2023 Albumin [Mass/Vol] 4.8 g/dL Normal 3.5-5.7 [facility] Comment on above: Order Comment: Reaso n for Exam Rash and nonspecific skin eruption Performed By: #### A SO, EBVNA, EBVEAG, EBV VCAIGG, EBV VCAIGM #### [facility] , #### CMP, ESR, CRP, CBC #### [facility] [address] Albumin/Globulin [Mass ratio] 1.8 {ratio} Normal [employer] Other Comment on above: Order Comment: Reaso n for Exam Rash and nonspecific skin eruption Performed By: #### A SO, EBVNA, EBVEAG, EBV VCAIGG, EBV VCAIGM #### [facility] , #### CMP, ESR, CRP, CBC #### [facility] [address] ALP [Catalytic activity/Vol] 64 U/L Normal 34-104 [employer] Other Comment on above: Order Comment: Reaso n for Exam Rash and nonspecific skin eruption Performed By: #### A SO, EBVNA, EBVEAG, EBV VCAIGG, EBV VCAIGM #### [facility] , #### CMP, ESR, CRP, CBC #### [facility] [address] ALT [Catalytic activity/Vol] 13 U/L Normal 7-52 [employer] Other Comment on above: Order Comment: Reaso n for Exam Rash and nonspecific skin eruption Performed By: #### A SO, EBVNA, EBVEAG, EBV VCAIGG, EBV VCAIGM #### [facility] , #### CMP, ESR, CRP, CBC #### [facility] [address] [place] [address] Anion gap [Moles/Vol] 26.8 mmol/L High 6.0-15.0 [facility] Comment on above: Order Comment: Reaso n for Exam Rash and nonspecific skin eruption Performed By: #### A SO, EBVNA, EBVEAG, EBV VCAIGG, EBV VCAIGM #### [facility] , #### CMP, ESR, CRP, CBC #### [facility] [address] AST [Catalytic activity/Vol] 25 U/L Normal 13-39 [employer] Other Comment on above: Order Comment: Reaso n for Exam Rash and nonspecific skin eruption Performed By: #### A SO, EBVNA, EBVEAG, EBV VCAIGG, EBV VCAIGM #### [facility] , #### CMP, ESR, CRP, CBC #### [facility] [address] Bilirubin [Mass/Vol] 0.4 mg/dL Normal 0.3-1.0 [facility] Comment on above: Order Comment: Reaso n for Exam Rash and nonspecific skin eruption Performed By: #### A SO, EBVNA, EBVEAG, EBV VCAIGG, EBV VCAIGM #### [facility] , #### CMP, ESR, CRP, CBC #### [facility] [address] Calcium [Mass/Vol] 10.1 mg/dL Normal 8.6-10.3 [facility] Comment on above: Order Comment: Reaso n for Exam Rash and nonspecific skin eruption Performed By: #### A SO, EBVNA, EBVEAG, EBV VCAIGG, EBV VCAIGM #### [facility] , #### CMP, ESR, CRP, CBC #### [facility] [address] Chloride [Moles/Vol] 101 mmol/L Normal 98-107 [employer] Other Comment on above: Order Comment: Reaso n for Exam Rash and nonspecific skin eruption Performed By: #### A SO, EBVNA, EBVEAG, EBV VCAIGG, EBV VCAIGM #### [facility] , #### CMP, ESR, CRP, CBC #### [facility] [address] CO2 [Moles/Vol] 17.7 mmol/L Low 21.0-31.0 [facility] Comment on above: Order Comment: Reaso n for Exam Rash and nonspecific skin eruption Performed By: #### A SO, EBVNA, EBVEAG, EBV VCAIGG, EBV VCAIGM #### [facility] , #### CMP, ESR, CRP, CBC #### [facility] [address] Creatinine [Mass/Vol] 1.21 mg/dL High 0.60-1.20 [facility] Comment on above: Order Comment: Reaso n for Exam Rash and nonspecific skin eruption Performed By: #### A SO, EBVNA, EBVEAG, EBV VCAIGG, EBV VCAIGM #### [facility] , #### CMP, ESR, CRP, CBC #### [facility] [address] GFR/1.73 sq M.predicted MDRD (S/P/Bld) [Vol rate/Area] 54.600 mL/min/{1.73_m2} Normal [employer] Other Comment on above: Order Comment: Reaso n for Exam Rash and nonspecific skin eruption Performed By: #### A SO, EBVNA, EBVEAG, EBV VCAIGG, EBV VCAIGM #### [facility] , #### CMP, ESR, CRP, CBC #### [facility] [address] Globulin (S) [Mass/Vol] 2.6 g/dL Normal [facility] Comment on above: Order Comment: Reaso n for Exam Rash and nonspecific skin eruption Performed By: #### A SO, EBVNA, EBVEAG, EBV VCAIGG, EBV VCAIGM #### [facility] , #### CMP, ESR, CRP, CBC #### [facility] [address] [place] [address] Glucose [Mass/Vol] 132 mg/dL High 70-100 [employer] Other Comment on above: Order Comment: Reaso n for Exam Rash and nonspecific skin eruption Result Comment: [place] Glucose Reference Range is dependent on time and content of last meal. Glucose of more than 200 mg/dL in a nonstressed, ambulatory subject supports the diagnosis of Diabetes Mellitus. ADA recommended reference range Performed By: #### A SO, EBVNA, EBVEAG, EBV VCAIGG, EBV VCAIGM #### [facility] , #### CMP, ESR, CRP, CBC #### [facility] [address] [place] [address] [place] Potassium [Moles/Vol] 3.5 mmol/L Normal 3.5-5.1 [facility] Comment on above: Order Comment: Reaso n for Exam Rash and nonspecific skin eruption Performed By: #### A SO, EBVNA, EBVEAG, EBV VCAIGG, EBV VCAIGM #### [facility] , #### CMP, ESR, CRP, CBC #### [facility] [address] Protein [Mass/Vol] 7.4 g/dL Normal 6.4-8.9 [facility] Comment on above: Order Comment: Reaso n for Exam Rash and nonspecific skin eruption Performed By: #### A SO, EBVNA, EBVEAG, EBV VCAIGG, EBV VCAIGM #### [facility] , #### CMP, ESR, CRP, CBC #### [address] Sodium [Moles/Vol] 142 mmol/L Normal 136-145 [employer] Other Comment on above: Order Comment: Reaso n for Exam Rash and nonspecific skin eruption Performed By: #### A SO, EBVNA, EBVEAG, EBV VCAIGG, EBV VCAIGM #### [facility] , #### CMP, ESR, CRP, CBC #### [place] [address] [place] Urea nitrogen [Mass/Vol] 21 mg/dL Normal 7-25 [employer] Other Comment on above: Order Comment: Reaso n for Exam Rash and nonspecific skin eruption Performed By: #### A SO, EBVNA, EBVEAG, EBV VCAIGG, EBV VCAIGM #### [facility] , #### CMP, ESR, CRP, CBC #### [facility] [address] [place] [address] [facility] Albumin [Mass/Vol] 4.691354 g/dL Normal 3.5-5.7 g/dL N [facility] [employer] Other Bilirubin [Mass/Vol] 0.2787826 mg/dL Normal 0.3- 1.0 mg/dL [facility] [employer] Other Calcium [Mass/Vol] 10.4125666 mg/dL Normal 8.6-1 0.3 mg/dL [facility] [employer] Other CO2 [Moles/Vol] 17.75225023 mmol/L Low 21.0-3 1.0 mmol/L [facility] [employer] Other Creatinine [Mass/Vol] 1.57109449 mg/dL High 0. 60-1.20 mg/dL [facility] [employer] Other Potassium [Moles/Vol] 3.75177911 mmol/L Normal 3 .5-5.1 mmol/L [facility] [employer] Other Protein [Mass/Vol] 7.277574 g/dL Normal 6.4-8.9 g/dL N [facility] [employer] Other Comprehensive Metabolic Panel 2.6 g/dL [facility] [employer] Other EBV Ab VCA, IgGon 01-05-2023 EBV Ab VCA, IgG >600.0 High 0.0-17.9 [facility] Comment on above: Order Comment: Reaso n for Exam Rash and nonspecific skin eruption Result Comment: Nega tive <18.0 Equivocal 18.0 - 21.9 Positive >21.9 Performed By: #### A SO, EBVNA, EBVEAG, EBV VCAIGG, EBV VCAIGM #### [facility] , #### CMP, ESR, CRP, CBC #### [facility] [address] [id number] [facility] EBV Ab VCA, IgG >600.0 High 0.0-17.9 [facility] [employer] Other EBV Ab VCA, IgMon 01-05-2023 EBV Ab VCA, IgM <36.0 Normal 0.0-35.9 [facility] Comment on above: Order Comment: Reaso n for Exam Rash and nonspecific skin eruption Result Comment: Nega tive <36.0 Equivocal 36.0 - 43.9 Positive >43.9 Performed at: [facility] [address] [id number] Supervisor Drying And Softening: Kings Robles PhD, Phone: [phone] PERFORMED BY: [place] [address] PATHOLOGIST SENIOR LITIGATION PARALEGAL ADRIENNE DRAPER M.D. Performed By: #### A SO, EBVNA, EBVEAG, EBV VCAIGG, EBV VCAIGM #### [facility] , #### CMP, ESR, CRP, CBC #### [facility] [address] [place] [address] EBV Ab VCA, IgM <36.0 0.0-35.9 [facility] [employer] Other EBV Nuclear Antigen Abs, IgG on 01-05-2023 EBV Nuclear Antigen Abs, IgG >600.0 High 0.0-17.9 [facility] Comment on above: Order Comment: Reaso n for Exam Rash and nonspecific skin eruption Result Comment: Nega tive <18.0 Equivocal 18.0 - 21.9 Positive >21.9 Performed By: #### A SO, EBVNA, EBVEAG, EBV VCAIGG, EBV VCAIGM #### [facility] , #### CMP, ESR, CRP, CBC #### [facility] [address] [place] [address] Car-Hubbard Virus Early Ag Abon 01-05-2023 Car-Hubbard Virus Early Ag Ab >150.0 High 0.0-8.9 [employer] Other Car-Hubbard Virus Early Robert GGon 01-05-2023 Car-Hubbard Virus Early AgIGG >150.0 High 0.0-8.9 [facility] Comment on above: Order Comment: Reaso n for Exam Rash and nonspecific skin eruption Result Comment: Hepa titis A, Hepatitis C and HIV antibodies may cross-react with this assay. Negative < 9.0 Equivocal 9.0 - 10.9 Positive >10.9 Performed By: #### A SO, EBVNA, EBVEAG, EBV VCAIGG, EBV VCAIGM #### [facility] , #### CMP, ESR, CRP, CBC #### [facility] [address] Erythrocyte Sedimentation Ra melinda 01-05-2023 ESR (Bld) [Velocity] 10 mm/h Normal 0-29 [facility] Other Comment on above: Order Comment: Reaso n for Exam Rash and nonspecific skin eruption Result Comment: PERF ORMED BY: [place] [address] PATHOLOGIST SENIOR LITIGATION PARALEGAL ADRIENNE DRAPER M.D. Performed By: #### A SO, EBVNA, EBVEAG, EBV VCAIGG, EBV VCAIGM #### [facility] , #### CMP, ESR, CRP, CBC #### [facility] [address] [id number] [facility] Lab Reportson 12-27-2022 Lab Reports [id number] #[id number] Normal [facility] Family Medicine Office/Clini c Noteon 12-13-2022 Family [...] Urnls Dip Stick Non-Auto w/o Micrscpy POC 90254 2. 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) Orders: amlodipine, 10 mg = 1 tab(s), Oral, Daily, # 90 tab(s), Refills(s) 3, Pharmacy: [facility], 157.5, cm, 12/13/22 15:39:00 EDT, Height/Length Dosing, 93.9, kg, 12/13/22 15:39:00 EDT, Weight Dosing cefdinir, 300 mg = 1 cap(s), Oral, q12hr, X 10 day(s), # 20 cap(s), Refills(s) 0, Pharmacy: [facility]/pharmacy #[id number], 157.5, cm, 12/13/22 15:39:00 EDT, Height/Length Dosing, 93.9, kg, 12/13/22 15:39:00 EDT, Weight Dosing citalopram, 20 mg = 1 tab(s), Oral, Daily, # 90 tab(s), Refills(s) 3, Pharmacy: [facility], 157.5, cm, 12/13/22 15:39:00 EDT, Height/Length Dosing, 93.9, kg, 12/13/22 15:39:00 EDT, Weight Dosing dapagliflozin, 5 mg = 1 tab(s), Oral, Daily, # 90 tab(s), Refills(s) 3, Pharmacy: [facility], 157.5, cm, 12/13/22 15:39:00 EDT, Height/Length Dosing, 93.9, kg, 12/13/22 15:39:00 EDT, Weight Dosing glipiZIDE, 5 mg = 1 tab(s), Oral, Daily, # 90 tab(s), Refills(s) 3, Pharmacy: [facility], 157.5, cm, 12/13/22 15:39:00 EDT, Height/Length Dosing, 93.9, kg, 12/13/22 15:39:00 EDT, Weight Dosing hydrochlorothiazide- losartan, 1 tab(s), Oral, Daily, 90 tab(s), Refill(s) 3, [facility], 157.5, [...] urination Hidrade (more content not included)... Normal [facility] Comment on above: Result Comment: Elec tronically Signed By: VINNIE DOVER, ALBERT Darling\.br\Date and Time Signed: 12/13/22 16:36 EDT CBC AUTO DIFFon 12-10-2022 BASO # 0.1 103/ul Normal 0.0-0.[address] [facility] Comment on above: Performed By: #### C BC #### [facility] [address] [place] [address] Dr. Hadley Keating Basophils/100 WBC (Bld) 0.7 % Normal 0.2-2.0 [facility] Comment on above: Performed By: #### C BC #### [facility] [address] [address] [address] Hadley Keating EO # 0.3 103/ul Normal 0.0-0.[address] [facility] Comment on above: Performed By: #### C BC #### [facility] [address] [address] [address] Hadley Keating Eosinophils/100 WBC (Bld) 4.7 % Normal 0.9-7.[address] [facility] Comment on above: Performed By: #### C BC #### [facility] [address] [place] [address] Dr. Hadley Keating Erythrocyte distribution width (RBC) [Ratio] 12.6 % Normal 11.0-15.[address] [facility] Comment on above: Performed By: #### C BC #### [facility] [address] [place] [address] Dr. Hadley Keating Hematocrit (Bld) [Volume fraction] 45.4 % Normal 36.0-48.[address] [facility] Comment on above: Performed By: #### C BC #### [facility] [address] [place] [address] Dr. Hadley Keating Hemoglobin (Bld) [Mass/Vol] 15.4 g/dL Normal 12.0-16.[address] [facility] Comment on above: Performed By: #### C BC #### [facility] [address] [place] [address] Dr. Hadley Keating IG # 0.03 10e3/ul Normal 0.00-0.[address] [facility] Comment on above: Performed By: #### C BC #### [facility] [address] [place] [address] Dr. Hadley Keating IG % 0.4 % Normal 0.0-0.[address] [facility] Comment on above: Performed By: #### C BC #### [facility] [address] [place] [address] Dr. Hadley Keating LYMPH # 2.3 103/ul Normal 1.2-3.[address] [facility] Comment on above: Performed By: #### C BC #### [facility] [address] [place] [address] Dr. Hadley Keating Lymphocytes/100 WBC (Bld) 33.6 % Normal 20.5-60.[address] [facility] Comment on above: Performed By: #### C BC #### [facility] [address] [place] [address] Dr. Hadley Keating MANUAL DIFF REQ NO Normal [facility] Comment on above: Performed By: #### C BC #### [facility] [address] [place] [address] Dr. Hadley Keating MCH (RBC) [Entitic mass] 29.6 pg Normal 26.7-34.[address] [facility] Comment on above: Performed By: #### C BC #### [facility] [address] [place] [address] Dr. Hadley Keating MCHC (RBC) [Mass/Vol] 33.9 g/dL Normal 29.9-35.[address] [facility] Comment on above: Performed By: #### C BC #### [facility] [address] [place] [address] Dr. Hadley Keating MCV (RBC) [Entitic vol] 87.1 fL Normal 81.0-99.0 [facility] Comment on above: Performed By: #### C BC #### [facility] [address] [place] [address] Dr. Hadley Keating MONO # 0.6 103/ul Normal 0.3-0.[address] [facility] Comment on above: Performed By: #### C BC #### [facility] [address] [place] [address] Dr. Hadley Keating Monocytes/100 WBC (Bld) 8.0 % Normal 1.7-12.0 [facility] Comment on above: Performed By: #### C BC #### [facility] [address] [place] [address] Dr. Hadley Keating NEUT # 3.7 103/ul Normal 1.4-6.[address] [facility] Comment on above: Performed By: #### C BC #### [facility] [address] [place] [address] Dr. Hadley Keating Neutrophils/100 WBC (Bld) 52.6 % Normal 43.0-75.[address] [facility] Comment on above: Performed By: #### C BC #### [facility] [address] [place] [address] Dr. Hadley Keating Platelet mean volume (Bld) [Entitic vol] 9.3 fL Critically low 9.5-13.[address] [facility] Comment on above: Performed By: #### C BC #### [facility] [address] [address] [address] Hadley Keating PLT 238 103/ul Normal 150-[address] [facility] Comment on above: Performed By: #### C BC #### [facility] [address] [place] [address] Dr. Hadley Keating RBC 5.21 106/ul Normal 4.20-5.[address] [facility] Comment on above: Performed By: #### C BC #### [facility] [address] [place] [address] Dr. Hadley Keating WBC 7.0 103/ul Normal 4.0-11.[address] [facility] Comment on above: Performed By: #### C BC #### [facility] [address] [place] [address] Dr. Hadley Keating CRPon 12-10-2022 CRP [Mass/Vol] mg/L Normal <=1.0 [facility] Comment on above: Performed By: #### F T4 #### [facility] [address] [place] [address] Dr. Hadley Keating PROF CHEM 8 (BAS METB)on Anion gap [Moles/Vol] 16.6 mmol/L Normal [facility] Comment on above: Performed By: #### F T4 #### [facility] [address] [place] [address] Dr. Hadley Keating Calcium [Mass/Vol] 8.7 mg/dL Normal 8.5-10.1 [facility] Comment on above: Performed By: #### F T4 #### [facility] [address] [place] [address] Dr. Hadley Keating Chloride [Moles/Vol] 102 mmol/L Normal 98-[address] [facility] Comment on above: Performed By: #### F T4 #### [facility] [address] [place] [address] Dr. Hadley Keating CO2 [Moles/Vol] 23.8 mmol/L Normal 21.0-32.0 [facility] Comment on above: Performed By: #### F T4 #### [facility] [address] [place] [address] Dr. Hadley Keating Creatinine [Mass/Vol] 1.01 mg/dL Normal 0.55-1.[address] [facility] Comment on above: Performed By: #### F T4 #### [facility] [address] [address] [address] Hadley Keating EGFR-AF PRYDEINIG >60 Normal >=60 [facility] Comment on above: Performed By: #### F T4 #### [facility] [address] [address] [address] Hadley Keating EGFR-NON AF PRYDEINIG 58 mL/min/1.73m2 Critically low >=[address] [facility] Comment on above: Performed By: #### F T4 #### [facility] [address] [place] [address] Dr. Hadley Keating Glucose [Mass/Vol] 244 mg/dL Critically high 74-106 T [facility] Comment on above: Performed By: #### F T4 #### [facility] [address] [place] [address] Dr. Hadley Keating Potassium [Moles/Vol] 3.4 mmol/L Critically low 3.5-5.[address] [facility] Comment on above: Performed By: #### F T4 #### [facility] [address] [place] [address] Dr. Hadley Keating Sodium [Moles/Vol] 139 mmol/L Normal 136-145 [facility] Comment on above: Performed By: #### F T4 #### [facility] [address] [place] [address] Dr. Hadley Keating Urea nitrogen [Mass/Vol] 21.0 mg/dL Critically high 7.0-18.[address] [facility] Comment on above: Performed By: #### F T4 #### [facility] [address] [place] [address] Dr. Hadley Keating Urea nitrogen/Creatinine [Mass ratio] 20.8 mg/mg Normal [facility] Comment on above: Performed By: #### F T4 #### [facility] [address] [place] [address] Dr. Hadley Keating SED RATE [facility] 2022 SED RATE 10 mm/hr Normal <=30 [facility] Comment on above: Performed By: #### S EDR #### [facility] [address] [address] [address] Hadley Keating Complete Blood Count Auto Di ffon 10-25-2022 Basophils (Bld) [#/Vol] 0.0 10*3/uL Normal 0.0-0.2 [facility] Comment on above: Result Comment: PERF ORMED BY: [place] [address] PATHOLOGIST SENIOR LITIGATION PARALEGAL ADRIENNE DRAPER M.D. Performed By: #### A SO, EBVNA, EBVEAG, EBV VCAIGG, EBV VCAIGM #### [facility] , #### CMP, ESR, CRP, CBC #### [facility] [address] [place] [address] Basophils/100 WBC (Bld) 0.7 % Normal . [facility] Comment on above: Performed By: #### A SO, EBVNA, EBVEAG, EBV VCAIGG, EBV VCAIGM #### [facility] , #### CMP, ESR, CRP, CBC #### [facility] [address] [place] [address] [place] Eosinophils (Bld) [#/Vol] 0.3 10*3/uL Normal 0.0-0.45 [facility] Comment on above: Performed By: #### A SO, EBVNA, EBVEAG, EBV VCAIGG, EBV VCAIGM #### [facility] , #### CMP, ESR, CRP, CBC #### [facility] [address] [place] [address] [place] Eosinophils/100 WBC (Bld) 4.1 % Normal . [facility] Comment on above: Performed By: #### A SO, EBVNA, EBVEAG, EBV VCAIGG, EBV VCAIGM #### [facility] , #### CMP, ESR, CRP, CBC #### [address] Erythrocyte distribution width (RBC) [Ratio] 13.6 % Normal 11.9-15.3 [facility] Comment on above: Performed By: #### A SO, EBVNA, EBVEAG, EBV VCAIGG, EBV VCAIGM #### [facility] , #### CMP, ESR, CRP, CBC #### [address] Hematocrit (Bld) [Volume fraction] 45.8 % Normal 34.0-46.4 [facility] Comment on above: Performed By: #### A SO, EBVNA, EBVEAG, EBV VCAIGG, EBV VCAIGM #### [facility] , #### CMP, ESR, CRP, CBC #### [address] Hemoglobin (Bld) [Mass/Vol] 15.4 g/dL Normal 11.8-15.4 [facility] Comment on above: Performed By: #### A SO, EBVNA, EBVEAG, EBV VCAIGG, EBV VCAIGM #### [facility] , #### CMP, ESR, CRP, CBC #### [address] Lymphocytes (Bld) [#/Vol] 2.2 10*3/uL Normal 1.00-4.8 [facility] Comment on above: Performed By: #### A SO, EBVNA, EBVEAG, EBV VCAIGG, EBV VCAIGM #### [facility] , #### CMP, ESR, CRP, CBC #### [address] Lymphocytes/100 WBC (Bld) 32.8 % Normal . [facility] Comment on above: Performed By: #### A SO, EBVNA, EBVEAG, EBV VCAIGG, EBV VCAIGM #### [facility] , #### CMP, ESR, CRP, CBC #### [address] MCH (RBC) [Entitic mass] 29.1 pg Normal 24.7-34.3 [facility] Comment on above: Performed By: #### A SO, EBVNA, EBVEAG, EBV VCAIGG, EBV VCAIGM #### [facility] , #### CMP, ESR, CRP, CBC #### [address] MCV (RBC) [Entitic vol] 86.7 fL Normal 80-100 F [facility] Comment on above: Performed By: #### A SO, EBVNA, EBVEAG, EBV VCAIGG, EBV VCAIGM #### [facility] , #### CMP, ESR, CRP, CBC #### [address] Mean Corpuscular HGB Conc 33.6 g/dL Normal 32.0-35.0 [facility] Comment on above: Performed By: #### A SO, EBVNA, EBVEAG, EBV VCAIGG, EBV VCAIGM #### [facility] , #### CMP, ESR, CRP, CBC #### [address] Monocytes (Bld) [#/Vol] 0.7 10*3/uL Normal 0.0-0.8 [facility] Comment on above: Performed By: #### A SO, EBVNA, EBVEAG, EBV VCAIGG, EBV VCAIGM #### [facility] , #### CMP, ESR, CRP, CBC #### [address] Monocytes/100 WBC (Bld) 10.7 % Normal . [facility] Comment on above: Performed By: #### A SO, EBVNA, EBVEAG, EBV VCAIGG, EBV VCAIGM #### [facility] , #### CMP, ESR, CRP, CBC #### [facility] [address] Neutrophils (Bld) [#/Vol] 3.5 10*3/uL Normal 1.8-7.7 [facility] Comment on above: Performed By: #### A SO, EBVNA, EBVEAG, EBV VCAIGG, EBV VCAIGM #### [facility] , #### CMP, ESR, CRP, CBC #### [address] Neutrophils/100 WBC (Bld) 51.7 % Normal . [facility] Comment on above: Performed By: #### A SO, EBVNA, EBVEAG, EBV VCAIGG, EBV VCAIGM #### [facility] , #### CMP, ESR, CRP, CBC #### [address] NRBC% 0.1 /100{WBC} Normal 0-0.5 [facility] Comment on above: Performed By: #### A SO, EBVNA, EBVEAG, EBV VCAIGG, EBV VCAIGM #### [facility] , #### CMP, ESR, CRP, CBC #### [address] Platelet mean volume (Bld) [Entitic vol] 7.5 fL Normal 6.3-10.7 [facility] Comment on above: Performed By: #### A SO, EBVNA, EBVEAG, EBV VCAIGG, EBV VCAIGM #### [facility] , #### CMP, ESR, CRP, CBC #### [place] [address] [place] Platelets (Bld) [#/Vol] 259 10*3/uL Normal 150-450 [facility] Comment on above: Performed By: #### A SO, EBVNA, EBVEAG, EBV VCAIGG, EBV VCAIGM #### [facility] , #### CMP, ESR, CRP, CBC #### [address] RBC (Bld) [#/Vol] 5.28 10*6/uL High 3.60-5.00 [facility] Comment on above: Performed By: #### A SO, EBVNA, EBVEAG, EBV VCAIGG, EBV VCAIGM #### [facility] , #### CMP, ESR, CRP, CBC #### [address] WBC (Bld) [#/Vol] 6.7 10*3/uL Normal 3.8-11.6 [facility] Comment on above: Performed By: #### A SO, EBVNA, EBVEAG, EBV VCAIGG, EBV VCAIGM #### [facility] , #### CMP, ESR, CRP, CBC #### [address] Comprehensive Metabolic Pane yadira 10-25-2022 Albumin [Mass/Vol] 4.6 g/dL Normal 3.5-5.7 [facility] Comment on above: Performed By: #### A SO, EBVNA, EBVEAG, EBV VCAIGG, EBV VCAIGM #### [facility] , #### CMP, ESR, CRP, CBC #### [facility] [address] [place] [address] Albumin/Globulin [Mass ratio] 1.7 {ratio} Normal [facility] Comment on above: Performed By: #### A SO, EBVNA, EBVEAG, EBV VCAIGG, EBV VCAIGM #### [facility] , #### CMP, ESR, CRP, CBC #### [address] ALP [Catalytic activity/Vol] 47 U/L Normal 34-104 [facility] Comment on above: Result Comment: PERF ORMED BY: [place] [address] PATHOLOGIST SENIOR LITIGATION PARALEGAL ADRIENNE DRAPER M.D. Performed By: #### A SO, EBVNA, EBVEAG, EBV VCAIGG, EBV VCAIGM #### [facility] , #### CMP, ESR, CRP, CBC #### [address] ALT [Catalytic activity/Vol] 14 U/L Normal 7-52 [facility] Comment on above: Performed By: #### A SO, EBVNA, EBVEAG, EBV VCAIGG, EBV VCAIGM #### [facility] , #### CMP, ESR, CRP, CBC #### [address] Anion gap [Moles/Vol] 13.3 mmol/L Normal 6.0-15.0 [facility] Comment on above: Performed By: #### A SO, EBVNA, EBVEAG, EBV VCAIGG, EBV VCAIGM #### [facility] , #### CMP, ESR, CRP, CBC #### [address] AST [Catalytic activity/Vol] 22 U/L Normal 13-39 [facility] Comment on above: Performed By: #### A SO, EBVNA, EBVEAG, EBV VCAIGG, EBV VCAIGM #### [facility] , #### CMP, ESR, CRP, CBC #### [address] Bilirubin [Mass/Vol] 0.5 mg/dL Normal 0.3-1.0 [facility] Comment on above: Performed By: #### A SO, EBVNA, EBVEAG, EBV VCAIGG, EBV VCAIGM #### [facility] , #### CMP, ESR, CRP, CBC #### [address] [address] [place] Calcium [Mass/Vol] 9.7 mg/dL Normal 8.6-10.3 [facility] Comment on above: Performed By: #### A SO, EBVNA, EBVEAG, EBV VCAIGG, EBV VCAIGM #### [facility] , #### CMP, ESR, CRP, CBC #### [facility] [address] [place] [address] Chloride [Moles/Vol] 100 mmol/L Normal 98-107 [facility] Comment on above: Performed By: #### A SO, EBVNA, EBVEAG, EBV VCAIGG, EBV VCAIGM #### [facility] , #### CMP, ESR, CRP, CBC #### [address] CO2 [Moles/Vol] 27.5 mmol/L Normal 21.0-31.0 [facility] Comment on above: Performed By: #### A SO, EBVNA, EBVEAG, EBV VCAIGG, EBV VCAIGM #### [facility] , #### CMP, ESR, CRP, CBC #### [facility] [address] [place] [address] Creatinine [Mass/Vol] 0.83 mg/dL Normal 0.60-1.20 [facility] Comment on above: Performed By: #### A SO, EBVNA, EBVEAG, EBV VCAIGG, EBV VCAIGM #### [facility] , #### CMP, ESR, CRP, CBC #### [facility] [address] [place] [address] [place] GFR/1.73 sq M.predicted MDRD (S/P/Bld) [Vol rate/Area] mL/min/{1.73_m2} Normal [facility] Comment on above: Performed By: #### A SO, EBVNA, EBVEAG, EBV VCAIGG, EBV VCAIGM #### [facility] , #### CMP, ESR, CRP, CBC #### [facility] [address] Globulin (S) [Mass/Vol] 2.7 g/dL Normal [facility] Comment on above: Performed By: #### A SO, EBVNA, EBVEAG, EBV VCAIGG, EBV VCAIGM #### [facility] , #### CMP, ESR, CRP, CBC #### [facility] [address] Glucose [Mass/Vol] 83 mg/dL Normal 70-100 [facility] Comment on above: Result Comment: [facility] Glucose Reference Range is dependent on time and content of last meal. Glucose of more than 200 mg/dL in a nonstressed, ambulatory subject supports the diagnosis of Diabetes Mellitus. ADA recommended reference range Performed By: #### A SO, EBVNA, EBVEAG, EBV VCAIGG, EBV VCAIGM #### [facility] , #### CMP, ESR, CRP, CBC #### [address] Potassium [Moles/Vol] 3.8 mmol/L Normal 3.5-5.1 [facility] Comment on above: Performed By: #### A SO, EBVNA, EBVEAG, EBV VCAIGG, EBV VCAIGM #### [facility] , #### CMP, ESR, CRP, CBC #### [facility] [address] Protein [Mass/Vol] 7.3 g/dL Normal 6.4-8.9 [facility] Comment on above: Performed By: #### A SO, EBVNA, EBVEAG, EBV VCAIGG, EBV VCAIGM #### [facility] , #### CMP, ESR, CRP, CBC #### [facility] [address] Sodium [Moles/Vol] 137 mmol/L Normal 136-145 [facility] Comment on above: Performed By: #### A SO, EBVNA, EBVEAG, EBV VCAIGG, EBV VCAIGM #### [facility] , #### CMP, ESR, CRP, CBC #### [facility] [address] [place] [address] [place] Urea nitrogen [Mass/Vol] 22 mg/dL Normal 7-25 [facility] Comment on above: Performed By: #### A SO, EBVNA, EBVEAG, EBV VCAIGG, EBV VCAIGM #### [facility] , #### CMP, ESR, CRP, CBC #### [facility] [address] [id number] [facility] Urinalysis - AUTOMATEDon Appearance (U) cloudy [employer] Other Bilirubin Ql (U) Negative [employer] Other Color (U) color [employer] Other Glucose Ql (U) 250 [employer] Other Hemoglobin Ql (U) trace-intact [employer] Other Ketones Ql (U) Negative [employer] Other Leukocyte esterase Test strip Ql (U) SMALL [employer] Other Nitrite Ql (U) Negative [employer] Other pH (U) 5.5 [pH] [employer] Other Protein Ql (U) Negative [employer] Other Specific gravity (U) [Rel density] 1.030 [employer] Other Urobilinogen (U) [Mass/Vol] 0.2 mg/dL [employer] Other Urinalysis - AUTOMATED No rt [employer] Other Urine Cultureon 05-12-2022 Urine Culture >100,000 [employer] Other Urine Culture <16 Susceptible Warp 9 Other Urine Culture 16 Intermediate [employer] Other Urine Culture <4 Susceptible Warp 9 Other Urine Culture <2 Susceptible Warp 9 Other Urine Culture <1 Susceptible Warp 9 Other Urine Culture <0.5 Susceptible Warp 9 Other Urine Culture <32 Susceptible Warp 9 Other Urine Culture >2/38 Resistant [employer] Other Urine culture routineOrdered By: ADRIANA GEORGES on 05-12-2022 Bacteria identified Cx Nom (U) Klebsiella pneumoniae [facility] Follitropin [Units/volume] i n Serum or PlasmaOrdered By: Sheri Kovacs on 05-10-2022 Follitropin Qn 8.3 m[IU]/mL [facility] Comment on above: FEMALE NORMALS (LILIANA ENOPAUSE) MID-FOLLICULAR PHASE: 3.9-8.8 mIU/mL MID-CYCLE PEAK: 4.5-22.5 mIU/mL MID-LUTEAL PHASE: 1.8-5.1 mIU/mLFEMALE NORMALS (POSTMENOPAUSE): 16.7-113.6 mIU/mLMALE NORMALS: 1.3-19.3 mIU/mL Serum or plasma estradiol (E 2) measurement (mass/volume)Ordered By: Sheri Kovacs on 05-10-2022 E2 [Mass/Vol] 22.4 pg/mL . [facility] Comment on above: Adult Female: Follic ular phase 12.5 - 166.0 Ovulation phase 85.8 - 498.0 Luteal phase 43.8 - 211.0 Postmenopausal <6.0 - 54.7 1st trimester 215.0 - >4300.0Roche ECLIA methodologyPerformed at: [facility] [place], [place] [id number] Director: Kings Robles PhD, Phone: [phone] Serum or plasma lutropin shira surement (units/volume)Ordered By: Sheri Bethanie on 05-10-2022 Lutropin Qn 7.4 m[IU]/mL . [facility] Comment on above: Adult Female: Follic ular phase 2.4 - 12.6 Ovulation phase 14.0 - 95.6 Luteal phase 1.0 - 11.4 Postmenopausal 7.7 - 58.5 REVERSE T3on 03-25-2022 Reverse T3, Serum 21.2 ng/dL Normal 9.2-24.1 [facility] Comment on above: Result Comment: This test was developed and its performance characteristics determined by [employer]. It has not been cleared or approved by the Food and Drug Administration. Performed By: #### R EVRT3 #### [facility] [address] [place] [address] Dr. Hadley Keating SARS-CoV-2 (COVID-19) RNA NA A+probe Ql (Resp)on 03-22-2022 SARS-CoV-2 (COVID-19) RNA VON+probe Ql (Unsp spec) Negative [employer] Other T3, TOTAL (TRIIODOTHYRONINE) on 03-20-2022 T3, TOTAL 185 ng/dL Critically high 71-180 [facility] Comment on above: Performed By: #### F T4 #### [facility] [address] [place] [address] Dr. Hadley Keating FREE T3on 03-19-2022 FREE T3 3.39 pg/mlL Normal 2.18-3.[address] [facility] Comment on above: Performed By: #### F T4 #### [facility] [address] [address] [address] Hadley Keating FREE T4on 03-19-2022 Free T4 [Mass/Vol] 1.06 ng/dL Normal 0.76-1.46 [facility] Comment on above: Performed By: #### F T4 #### [facility] [address] [place], [place] [id number] Dr. Hadley Keating TSHon 03-19-2022 TSH 0.636 uIU/mL Normal 0.358-3.740 [facility] Comment on above: Performed By: #### C BC #### [facility] [address] [place] [address] Dr. Hadley Keating NM STRESS/REST MULTIon 02-08 NM STRESS/REST MULTI Patient: MARIA M MCKEON Exam Date: 02/08/2022 : 1970 Gender:F Ordering : DR ALBERT CHRISTIANSON . Admission #: [id number] Family : Order #: [id number] CLICK HERE TO VIEW EXAM RADIOLOGY REPORT [...] MD on 02/10/2022 at 14:16 Normal [facility] FREE T3on 01-20-2022 FREE T3 2.79 pg/mlL Normal 2.18-3.98 [facility] Comment on above: Performed By: #### F T4 #### [facility] [address] [place] [address] Dr. Hadley Keating FREE T4on 01-20-2022 Free T4 [Mass/Vol] 1.00 ng/dL Normal 0.76-1.46 [facility] Comment on above: Performed By: #### F T4 #### [facility] [address] [place] [address] Dr. Hadley Keating GLYCOHEMOGLOBIN A1Con 2021 ADA RECOMMENDATION SEE BELOW Normal [facility] Comment on above: Result Comment: ADA RECOMMENDED LIMIT 4.0 - 6.0 ADA THERAPEUTIC TARGET < 7.0 ACTION SUGGESTED > 7.0 Performed By: #### A 1C #### [facility] [address] [place] [address] Dr. Hadley Keating Glucose [Mass/Vol] 134 mg/dL Normal [facility] Comment on above: Performed By: #### A 1C #### [facility] [address] [place] [address] Dr. Hadley Keating HbA1c (Bld) [Mass fraction] 6.3 % Critically high 4.5-6.[address] [facility] Comment on above: Performed By: #### A 1C #### [facility] [address] [place] [address] Dr. Hadley Keating TSHon 01-20-2022 TSH 0.914 uIU/mL Normal 0.358-3.740 [facility] Comment on above: Performed By: #### F T4 #### [facility] [address] [place] [address] Dr. Hadley Keating CBC AUTO DIFFon 12-31-2021 BASO # 0.1 103/ul Normal 0.0-0.[address] [facility] Comment on above: Performed By: #### C BC #### [facility] [address] [place] [address] Dr. Hadley Keating Basophils/100 WBC (Bld) 0.6 % Normal 0.2-2.0 [facility] Comment on above: Performed By: #### C BC #### [facility] [address] [place] [address] Dr. Hadley Keating EO # 0.3 103/ul Normal 0.0-0.7 [facility] Comment on above: Performed By: #### C BC #### [facility] [address] [place] [address] Dr. Hadley Keating Eosinophils/100 WBC (Bld) 3.4 % Normal 0.9-7.[address] [facility] Comment on above: Performed By: #### C BC #### [facility] [address] [place] [address] Dr. Hadley Keating Erythrocyte distribution width (RBC) [Ratio] 13.1 % Normal 11.0-15.[address] [facility] Comment on above: Performed By: #### C BC #### [facility] [address] [place] [address] Dr. Hadley Keating Hematocrit (Bld) [Volume fraction] 46.2 % Normal 36.0-48.[address] [facility] Comment on above: Performed By: #### C BC #### [facility] [address] [place] [address] Dr. Hadley Keating Hemoglobin (Bld) [Mass/Vol] 15.7 g/dL Normal 12.0-16.0 [facility] Comment on above: Performed By: #### C BC #### [facility] [address] [place] [address] Dr. Hadley Keating IG # 0.02 10e3/ul Normal 0.00-0.03 [facility] Comment on above: Performed By: #### C BC #### [facility] [address] [place] [address] Dr. Hadley Keating IG % 0.2 % Normal 0.0-0.5 [facility] Comment on above: Performed By: #### C BC #### [facility] [address] [place] [address] Dr. Hadley Keating LYMPH # 2.3 103/ul Normal 1.2-3.8 [facility] Comment on above: Performed By: #### C BC #### [facility] [address] [place] [address] Dr. Hadley Keating Lymphocytes/100 WBC (Bld) 27.3 % Normal 20.5-60.[address] [facility] Comment on above: Performed By: #### C BC #### [facility] [address] [place] [address] Dr. Hadley Keating MANUAL DIFF REQ NO Normal [facility] Comment on above: Performed By: #### C BC #### [facility] [address] [place] [address] Dr. Hadley Keating MCH (RBC) [Entitic mass] 29.3 pg Normal 26.7-34.[address] [facility] Comment on above: Performed By: #### C BC #### [facility] [address] [place] [address] Dr. Hadley Keating MCHC (RBC) [Mass/Vol] 34.0 g/dL Normal 29.9-35.[address] [facility] Comment on above: Performed By: #### C BC #### [facility] [address] [place] [address] Dr. Hadley Keating MCV (RBC) [Entitic vol] 86.2 fL Normal 81.0-99.0 [facility] Comment on above: Performed By: #### C BC #### [facility] [address] [place] [address] Dr. Hadley Keating MONO # 0.6 103/ul Normal 0.3-0.[address] [facility] Comment on above: Performed By: #### C BC #### [facility] [address] [place] [address] Dr. Hadley Keating Monocytes/100 WBC (Bld) 6.9 % Normal 1.7-12.0 [facility] Comment on above: Performed By: #### C BC #### [facility] [address] [place] [address] Dr. Hadley Keating NEUT # 5.1 103/ul Normal 1.4-6.[address] [facility] Comment on above: Performed By: #### C BC #### [facility] [address] [place] [address] Dr. Hadley Keating Neutrophils/100 WBC (Bld) 61.6 % Normal 43.0-75.[address] [facility] Comment on above: Performed By: #### C BC #### [facility] [address] [place] [address] Dr. Hadley Keating Platelet mean volume (Bld) [Entitic vol] 9.0 fL Critically low 9.5-13.[address] [facility] Comment on above: Performed By: #### C BC #### [facility] [address] [place] [address] Dr. Hadley Keating PLT 272 103/ul Normal 150-[address] [facility] Comment on above: Performed By: #### C BC #### [facility] [address] [place] [address] Dr. Hadley Keating RBC 5.36 106/ul Normal 4.20-5.[address] [facility] Comment on above: Performed By: #### C BC #### [facility] [address] [place] [address] Dr. Hadley Keating WBC 8.3 103/ul Normal 4.0-11.[address] [facility] Comment on above: Performed By: #### C BC #### [facility] [address] [place] [address] Dr. Hadley Keating CULTURE URINEon 12-31-2021 CULTURE URINE Culture Observations: NO GROWTH. Normal [facility] Comment on above: Performed By: #### F T4 #### [facility] [address] [place] [address] Dr. Hadley Keating ER URINE PROFILEon 2 Bilirubin Ql (U) Negative Normal NEGATIVE [facility] Comment on above: Performed By: #### F T4 #### [facility] [address] [place] [address] Dr. Hadley Keating Clarity (U) CLEAR Normal CLEAR [facility] Comment on above: Performed By: #### F T4 #### [facility] [address] [place] [address] Dr. Hadley Keating Color (U) YELLOW Normal YELLOW [facility] Comment on above: Performed By: #### F T4 #### [facility] [address] [place] [address] Dr. Hadley SUMMERS A micrscopic examination will be performed if indicated. Normal [facility] Comment on above: Performed By: #### F T4 #### [facility] [address] [place] [address] Dr. Hadley Keating Glucose Ql (U) 1000 mg/dl Abnormal NEGATIVE [facility] Comment on above: Performed By: #### F T4 #### [facility] [address] [place] [address] Dr. Hadley Keating Hemoglobin Ql (U) TRACE-INTACT Abnormal NEGATIVE [facility] Comment on above: Performed By: #### F T4 #### [facility] [address] [place] [address] Dr. Hadley Keating Ketones Ql (U) Negative Normal NEGATIVE [facility] Comment on above: Performed By: #### F T4 #### [facility] [address] [place] [address] Dr. Hadley Keating LEUKOCYTES TRACE Abnormal NEGATIVE [facility] Comment on above: Performed By: #### F T4 #### [facility] [address] [place] [address] Dr. Hadley Keating Nitrite Ql (U) Negative Normal NEGATIVE [facility] Comment on above: Performed By: #### F T4 #### [facility] [address] [place] [address] Dr. Hadley Keating pH (U) 5.0 [pH] Normal 5-[address] [facility] Comment on above: Performed By: #### F T4 #### [facility] [address] [place] [address] Dr. Hadley Keating SPEC GRAVITY 1.030 Abnormal 1.005-<=1.[address] [facility] Comment on above: Performed By: #### F T4 #### [facility] [address] [place] [address] Dr. Hadley Keating UA PROTEIN Negative Normal NEGATIVE/ TRACE [facility] Comment on above: Performed By: #### F T4 #### [facility] [address] [place] [address] Dr. Hadley Keating UR MICRO IND INDICATED Normal [facility] Comment on above: Performed By: #### F T4 #### [facility] [address] [place] [address] Dr. Hadley Keating Urobilinogen Qn (U) 0.2 {Kandice'U}/dL Normal 0.2 - 1. [address] [facility] Comment on above: Performed By: #### F T4 #### [facility] [address] [place] [address] Dr. Hadley Keating LACTATE/LACTIC ACIDon 2021 Lactate [Moles/Vol] 1.7 mmol/L Normal 0.4-1.9 [facility] Comment on above: Performed By: #### L ACT #### [facility] [address] [place] [address] Dr. Hadley Keating LIPASEon 12-31-2021 Lipase [Catalytic activity/Vol] 105.0 U/L Normal 73.0-393.[address] [facility] Comment on above: Performed By: #### L IPA #### [facility] [address] [place] [address] Dr. Hadley Keating PROF 14(COMP METB)on 022 Albumin [Mass/Vol] 4.1 g/dL Normal 3.4-5.0 [facility] Comment on above: Performed By: #### C MP #### [facility] [address] [place] [address] Dr. Hadley Keating Albumin/Globulin [Mass ratio] 1.0 {ratio} Normal [facility] Comment on above: Performed By: #### C MP #### [facility] [address] [place] [address] Dr. Hadley Keating ALP [Catalytic activity/Vol] 63 U/L Normal 46-116 [facility] Comment on above: Performed By: #### C MP #### [facility] [address] [place] [address] Dr. Hadley Keating ALT [Catalytic activity/Vol] 25 U/L Normal 14-[address] [facility] Comment on above: Performed By: #### C MP #### [facility] [address] [address] [address] Hadley Keating Anion gap [Moles/Vol] 15.0 mmol/L Normal [facility] Comment on above: Performed By: #### C MP #### [facility] [address] [place] [address] Dr. Hadley Keating AST [Catalytic activity/Vol] 28 U/L Normal 15-[address] [facility] Comment on above: Performed By: #### C MP #### [facility] [address] [address] [address] Hadley Keating Calcium [Mass/Vol] 9.4 mg/dL Normal 8.5-10.1 [facility] Comment on above: Performed By: #### C MP #### [facility] [address] [place] [address] Dr. Hadley Keating Chloride [Moles/Vol] 99 mmol/L Normal 98-[address] [facility] Comment on above: Performed By: #### C MP #### [facility] [address] [place] [address] Dr. Hadley Keating CO2 [Moles/Vol] 24.1 mmol/L Normal 21.0-32.0 [facility] Comment on above: Performed By: #### C MP #### [facility] [address] [place] [address] Dr. Hadley Keating Creatinine [Mass/Vol] 0.83 mg/dL Normal 0.55-1.[address] [facility] Comment on above: Performed By: #### C MP #### [facility] [address] [place] [address] Dr. Hadley Keating EGFR-AF PRYDEINIG >60 Normal >=60 [facility] Comment on above: Performed By: #### C MP #### [facility] [address] [place] [address] Dr. Hadley Keating EGFR-NON AF PRYDEINIG >60 Normal >=[address] [facility] Comment on above: Performed By: #### C MP #### [facility] [address] [place] [address] Dr. Hadley Keating Globulin (S) [Mass/Vol] 4.1 g/dL Normal [facility] Comment on above: Performed By: #### C MP #### [facility] [address] [place] [address] Dr. Hadley Keating Glucose [Mass/Vol] 121 mg/dL Critically high 74-106 [facility] Comment on above: Performed By: #### C MP #### [facility] [address] [place] [address] Dr. Hadley Keating Potassium [Moles/Vol] 3.1 mmol/L Critically low 3.5-5.[address] [facility] Comment on above: Performed By: #### C MP #### [facility] [address] [place] [address] Dr. Hadley Keating Protein [Mass/Vol] 8.2 g/dL Normal 6.4-8.2 [facility] Comment on above: Performed By: #### C MP #### [facility] [address] [place] [address] Dr. Hadley Keating Sodium [Moles/Vol] 135 mmol/L Critically low 136-145 [facility] Comment on above: Performed By: #### C MP #### [facility] [address] [place] [address] Dr. Hadley Keating Urea nitrogen [Mass/Vol] 15.0 mg/dL Normal 7.0-18.[address] [facility] Comment on above: Performed By: #### C MP #### [facility] [address] [place] [address] Dr. Hadley Keating Urea nitrogen/Creatinine [Mass ratio] 18.1 mg/mg Normal [facility] Comment on above: Performed By: #### C MP #### [facility] [address] [place] [address] Dr. Hadley Keating URINE MICROSCOPIC ONLYon BACTERIA TRACE Abnormal NONE SEEN [facility] Comment on above: Performed By: #### F T4 #### [facility] [address] [place] [address] Dr. Hadley Keating Bacteria identified Cx Nom (U) INDICATED Normal [facility] Comment on above: Performed By: #### F T4 #### [facility] [address] [place] [address] Dr. Hadley Keating CAST NONE SEEN Normal NONE SEEN [facility] Comment on above: Performed By: #### F T4 #### [facility] [address] [place] [address] Dr. Hadley Keating Crystals LM Nom (Urine sed) NONE SEEN Normal NONE SEEN [facility] Comment on above: Performed By: #### F T4 #### [facility] [address] [place] [address] Dr. Hadley Keating Epithelial cells LM Ql (Urine sed) RARE Normal NONE SEEN /RARE [facility] Comment on above: Performed By: #### F T4 #### [facility] [address] [place] [address] Dr. Hadley Keating MUCOUS NONE SEEN Normal NONE SEEN [facility] Comment on above: Performed By: #### F T4 #### [facility] [address] [place] [address] Dr. Hadley Keating RBC 0-2 Normal 0-2 [facility] Comment on above: Performed By: #### F T4 #### [facility] [address] [place] [address] Dr. Hadley Keating WBC 10-20 Abnormal NONE SEEN [facility] Comment on above: Performed By: #### F T4 #### [facility] [address] [place] [address] Dr. Hadley Keating COVID Quick Testingon 2020 Result Negative [employer] Other Albumin [Mass/volume] in Ser um or PlasmaOrdered By: Tanya Washington on 04-28-2021 Albumin [Mass/Vol] 3.6 g/dL 2.9-4.4 [facility] IgA [Mass/volume] in Serum o r PlasmaOrdered By: Tanya Washington on 04-28-2021 IgA [Mass/Vol] 342 mg/dL 87-352 [facility] IgG [Mass/volume] in Serum o r PlasmaOrdered By: Tanya Washington on 04-28-2021 IgG [Mass/Vol] 1223 mg/dL 586-1602 [facility] IgM [Mass/volume] in Serum o r PlasmaOrdered By: Tanya Washington on 04-28-2021 IgM [Mass/Vol] 33 mg/dL 26-217 [facility] Comment on above: Performed at: [employer] [address] [id number] Director: Kings Robles PhD, Phone: [phone] Immunoglobulin light chains. kappa.free [Mass/volume] in SerumOrdered By: Tanya Washington on 04-28-2021 Immunoglobulin light chains.kappa.free (S) [Mass/Vol] 18.9 mg/L 3.3-19.4 [facility] Immunoglobulin light chains. kappa.free/Immunoglobulin light chains.lambda.free [MassOrdered By: Tanya Washington on 04-28-2021 Immunoglobulin light chains.kappa.free/Immun oglobulin light chains.lambda.free (S) [Mass ratio] 1.39 0.26-1.65 [facility] Comment on above: Performed at: [employer] [address] [id number] Director: Kings Robles PhD, Phone: [phone] Immunoglobulin light chains. lambda.free [Mass/volume] in Serum or PlasmaOrdered By: Tanya Washington on 04-28-2021 Immunoglobulin light chains.lambda.free [Mass/Vol] 13.6 mg/L 5.7-26.3 [facility] No Panel InformationOrdered By: Tanya Washington on 04-28-2021 Protein Electrophoresis M-Anurag Not observed g/dL Not Observed [facility] Protein Electrophoresis Note See comment . [facility] Comment on above: Protein electrophore sis scan will follow via computer,mail, or product support engineer delivery.Performed at: [facility] [id number] Director: Kings Robles PhD, Phone: [phone] Serum Immunofixation See comment . [facility] Comment on above: No monoclonality det ected. Protein [Mass/volume] in Ser um or PlasmaOrdered By: Tanya Washington on 04-28-2021 Protein [Mass/Vol] 7.1 g/dL 6.0-8.5 [facility] Serum globulin measurement ( mass/volume)Ordered By: Tanya Washington on 04-28-2021 Globulin (S) [Mass/Vol] 3.5 g/dL 2.2-3.9 [facility] Serum or plasma albumin/glob ulin mass ratioOrdered By: Tanya Washington on 04-28-2021 Albumin/Globulin [Mass ratio] 1.0 {ratio} 0.7-1.7 [facility] Serum or plasma alpha 1 glob ulin measurement by electrophoresis (mass/volume)Ordered By: Tanya Washington on 04-28-2021 Alpha 1 globulin Elph [Mass/Vol] 0.3 g/dL 0.0-0.4 [facility] Serum or plasma alpha 2 glob ulin measurement by electrophoresis (mass/volume)Ordered By: Tanya Washington on 04-28-2021 Alpha 2 globulin Elph [Mass/Vol] 0.7 g/dL 0.4-1.0 [facility] Serum or plasma beta globuli n measurement by electrophoresis (mass/volume)Ordered By: Tanya Washington on 04-28-2021 Beta globulin Elph [Mass/Vol] 1.2 g/dL 0.7-1.3 [facility] Serum or plasma gamma globul in measurement by electrophoresis (mass/volume)Ordered By: Tanya Washington on 04-28-2021 Gamma globulin Elph [Mass/Vol] 1.3 g/dL 0.4-1.8 [facility] Albumin [Mass/volume] in Bod y fluidon 11-21-2020 Albumin (Body fld) [Mass/Vol] 4.0 g/dL 3.2-5.5 [facility] Alkaline phosphatase [Enzyma tic activity/volume] in Serum or Plasmaon 11-21-2020 ALP [Catalytic activity/Vol] 68 U/L 32-92 [facility] Aspartate aminotransferase [ Enzymatic activity/volume] in Serum or Plasmaon 11-21-2020 AST [Catalytic activity/Vol] 27 U/L 10-42 [facility] Basophils Auto (Bld) [#/Vol] on 11-21-2020 Basophils (Bld) [#/Vol] 0.0 10*3/uL 0.0-0.2 [facility] Basophils/100 WBC Auto (Bld) on 11-21-2020 Basophils/100 WBC (Bld) 0.3 % . [facility] Bilirubin.total [Mass/volume ] in Serum or Plasmaon 11-21-2020 Bilirubin [Mass/Vol] 0.6 mg/dL 0.3-1.2 [facility] Calcium [Mass/volume] in Ser um or Plasmaon 11-21-2020 Calcium [Mass/Vol] 9.4 mg/dL 8.2-10.2 [facility] Carbon dioxide, total [Moles /volume] in Serum or Plasmaon 11-21-2020 CO2 [Moles/Vol] 21.6 mmol/L 22.0-30.0 [facility] Chloride [Moles/volume] in S sam or Plasmaon 11-21-2020 Chloride [Moles/Vol] 98 mmol/L 95-114 [facility] Creatinine and Glomerular fi ltration rate.predicted panel (S/P/Bld)on 11-21-2020 Creatinine [Mass/Vol] 0.86 mg/dL 0.44-1.03 [facility] Eosinophils Auto (Bld) [#/Vo l]on 11-21-2020 Eosinophils (Bld) [#/Vol] 0.0 10*3/uL 0.0-0.45 [facility] Eosinophils/100 WBC Auto (Bl d)on 11-21-2020 Eosinophils/100 WBC (Bld) 0.1 % . [facility] Erythrocyte distribution wid th Auto (RBC) [Ratio]on 11-21-2020 Erythrocyte distribution width (RBC) [Ratio] 15.0 % 11.9-15.3 [facility] Estimated glomerular filtrat ion rate (GFR) non- Americanon 11-21-2020 GFR/1.73 sq M.predicted among non-blacks MDRD (S/P/Bld) [Vol rate/Area] > 60 mL/Min [facility] Globulin Calc (S) [Mass/Vol] on 11-21-2020 Globulin (S) [Mass/Vol] 3.4 g/dL [facility] Glucose [Mass/volume] in Ser um or Plasmaon 11-21-2020 Glucose [Mass/Vol] 361 mg/dL 70-100 [facility] [facility] Comment on above: ADA recommended refe rence rangeRandom Glucose Reference Range is dependent on time and content of last meal. Glucose of more than 200 mg/dL in a nonstressed, ambulatory subject supports the diagnosis of Diabetes Mellitus. Hematocrit Auto (Bld) [Volum e fraction]on 11-21-2020 Hematocrit (Bld) [Volume fraction] 43.8 % 34.0-46.4 [facility] Hemoglobin [Mass/volume] in Bloodon 11-21-2020 Hemoglobin (Bld) [Mass/Vol] 15.2 g/dL 11.8-15.4 [facility] Laboratory - Hematology and Cell countson 11-21-2020 Nucleated RBC/100 WBC (Bld) [Ratio] 0.2 % 0-0.5 [facility] Leukocytes [#/volume] in Blo od by Automated counton 11-21-2020 WBC (Bld) [#/Vol] 7.7 10*3/uL 4.5-11.0 [facility] Lymphocytes Auto (Bld) [#/Vo l]on 11-21-2020 Lymphocytes (Bld) [#/Vol] 1.5 10*3/uL 1.00-4.8 [facility] Lymphocytes/100 WBC Auto (Bl d)on 11-21-2020 Lymphocytes/100 WBC (Bld) 18.8 % . [facility] MCH Auto (RBC) [Entitic mass ]on 11-21-2020 MCH (RBC) [Entitic mass] 29.3 pg 24.7-34.3 [facility] MCHC Auto (RBC) [Mass/Vol]on 11-21-2020 MCHC (RBC) [Mass/Vol] 34.7 g/dL 32.0-35.0 [facility] MCV Auto (RBC) [Entitic vol] on 11-21-2020 MCV (RBC) [Entitic vol] 84.4 fL 80-100 F [facility] Monocytes Auto (Bld) [#/Vol] on 11-21-2020 Monocytes (Bld) [#/Vol] 0.3 10*3/uL 0.0-0.8 [facility] Monocytes/100 WBC Auto (Bld) on 11-21-2020 Monocytes/100 WBC (Bld) 3.8 % . F [facility] Neutrophils Auto (Bld) [#/Vo l]on 11-21-2020 Neutrophils (Bld) [#/Vol] 5.9 10*3/uL 1.8-7.7 [facility] Neutrophils/100 WBC Auto (Bl d)on 11-21-2020 Neutrophils/100 WBC (Bld) 77.0 % . [facility] No Panel Informationon 11-21 Estimated GFR () > 60 mL/Min [facility] Comment on above: GFR estimated refere nce range: According to KDOQI guidelines, <60 ml/min/1.73m2 is sufficient to diagnose a patient with chronic kidney disease. Pharmacy Creatinine Clearance (Chem 89.66 [facility] Platelet mean volume Auto (B ld) [Entitic vol]on 11-21-2020 Platelet mean volume (Bld) [Entitic vol] 7.3 fL 6.3-10.7 [facility] Platelets Auto (Bld) [#/Vol] on 11-21-2020 Platelets (Bld) [#/Vol] 278 10*3/uL 150-450 [facility] Potassium [Moles/volume] in Serum or Plasmaon 11-21-2020 Potassium [Moles/Vol] 3.8 mmol/L 3.5-5.1 [facility] Protein [Mass/volume] in Ser um or Plasmaon 11-21-2020 Protein [Mass/Vol] 7.4 g/dL 6.1-7.9 [facility] RBC Auto (Bld) [#/Vol]on RBC (Bld) [#/Vol] 5.19 10*6/uL 3.60-5.00 [facility] Serum or plasma alanine calero otransferase measurement without P-5'-P (enzymatic activion 11-21-2020 ALT No additional P-5'-P [Catalytic activity/Vol] 17 U/L 10-60 [facility] Serum or plasma albumin/glob ulin mass ratioon 11-21-2020 Albumin/Globulin [Mass ratio] 1.2 {ratio} [facility] Sodium [Moles/volume] in Ser um or Plasmaon 11-21-2020 Sodium [Moles/Vol] 133 mmol/L 136-146 [facility] TSH DL <= 0.005 mIU/L Qnon 0 11-21-2020 TSH Qn 1.74 m[IU]/L 0.45-5.33 [facility] Urea nitrogen [Mass/volume] in Serum or Plasmaon 11-21-2020 Urea nitrogen [Mass/Vol] 18 mg/dL 9- [facility] Laboratory - Hematology and Cell countson 11-29-2018 WBC (Bld) [#/Vol] 3.5 10*3/uL 4.5-11.0 [facility] Automated erythrocytes count in urine sediment (number/area)on 11-05-2018 RBC Auto (Urine sed) [#/Area] 1-2 [HPF] 0-4 [facility] Automated leukocytes count i n urine sediment (number/area)on 11-05-2018 WBC Auto (Urine sed) [#/Area] Innumerable [HPF] 0-4 [facility] Automated urine hyaline cast s count (number/volume)on 11-05-2018 Hyaline casts Auto (U) [#/Vol] None seen [LPF] 0-1 [facility] Bilirubin Test strip Ql (U)o n 11-05-2018 Bilirubin Ql (U) Negative Negative [facility] Color Auto (U)on 11-05-2018 Color (U) Yellow Yellow [facility] Ketones Auto test strip (U) [Mass/Vol]on 11-05-2018 Ketones (U) [Mass/Vol] Negative Negative Fi [facility] Mucus LM Ql (Urine sed)on Mucus Ql (Urine sed) 1+ [LPF] [facility] Nitrite Test strip Ql (U)on 11-05-2018 Nitrite Ql (U) Negative Negative [facility] Protein Auto test strip (U) [Mass/Vol]on 11-05-2018 Protein (U) [Mass/Vol] Negative Negative Fi [facility] Specific gravity Auto test s trip (U) [Rel density]on 11-05-2018 Specific gravity (U) [Rel density] 1.025 1.001-1.030 [facility] Squamous epithelial cells de tection in urine sediment by light microscopyon 11-05-2018 Epithelial cells.squamous LM Ql (Urine sed) 1-2 [HPF] 0-2 [facility] Urine bacteria detection by automated methodon 11-05-2018 Bacteria Auto Ql (U) None seen None Seen [facility] Urine clarity by refractomet ry automatedon 11-05-2018 Clarity Refractometry automated (U) Clear Clear [facility] Urine glucose measurement by automated test strip (mass/volume)on 11-05-2018 Glucose Auto test strip (U) [Mass/Vol] Normal mg/dL Normal [facility] Urine hemoglobin detection b y automated test stripon 11-05-2018 Hemoglobin Auto test strip Ql (U) Trace Negative [facility] Urine leukocyte esterase det ection by automated test stripon 11-05-2018 Leukocyte esterase Auto test strip Ql (U) 4+ Negative [facility] Urobilinogen Auto test strip (U) [Mass/Vol]on 11-05-2018 Urobilinogen (U) [Mass/Vol] Normal mg/dL Normal [facility] pH Auto test strip (U)on pH (U) 5.0 [pH] 5.0-9.0 [facility] Blood anisocytosis detection on 08-16-2018 Anisocytosis Ql (Bld) Slight [facility] No Panel Informationon 08-16 Microcytosis Slight [facility] Platelet Estimate Normal Normal [facility] Platelet Morphology Comment Normal Normal [facility] Polychromasia [Presence] in Blood by Light microscopyon 08-16-2018 Polychromasia LM Ql (Bld) Slight [facility] RBC morphologyon 08-16-2018 RBC morphology finding Nom (Bld) N/A [facility] Laboratory - Hematology and Cell countson 07-18-2018 Band form neutrophils/100 WBC (Bld) 1 % 0-5 [facility] Lymphocytes/100 WBC Auto (Bl d)on 07-18-2018 Lymphocytes/100 WBC (Bld) 8 % 18-42 [facility] Metamyelocytes/100 WBC Manua l cnt (Bld)on 07-18-2018 Metamyelocytes/100 WBC (Bld) 2 % 0-0 [facility] Monocytes/100 WBC Manual cnt (Bld)on 07-18-2018 Monocytes/100 WBC (Bld) 7 % 2-11 F [facility] Myelocytes/100 WBC Manual cn t (Bld)on 07-18-2018 Myelocytes/100 WBC (Bld) 2 % 0-0 [facility] Segmented neutrophils/100 WB C Manual cnt (Bld)on 07-18-2018 Segmented neutrophils/100 WBC (Bld) 80 % 50-70 [facility] Dermatopathologyon 8 Dermatopathology Pathologist: TRISH BOYLE MD Date of Procedure: 01/01/2018 Date Received: 01/02/2018 Date Reported 01/03/2018 Submitting Physician: DENZEL LUCERO MD Location: [facility] A. SKIN, RIGHT LATERAL LEG, EXCISION: INVASIVE SQUAMOUS CELL CARCINOMA, WELL DIFFERENTIATED, INKED MARGINS FREE IN PLANES OF SECTIONS EXAMINED. B. SKIN, RIGHT CALF, EXCISION: INVASIVE SQUAMOUS CELL CARCINOMA, WELL DIFFERENTIATED, INKED MARGINS FREE IN PLANES OF SECTIONS EXAMINED. Electronically Signed Out by TRISH BOYLE M.D. Electronically Signed Out By TRISH BOYLE MD/[facility] Microscopic Description: A: Microscopic analysis shows irregular [...] and mitoses are rare. Clinical History: A,B: [id number]. Excisions. ([facility]) Specimens Submitted As: A: SKIN, RIGHT LATERAL LEG B: SKIN, RIGHT CALF Gross Description: A: Received in formalin is a bradford piece of skin measuring [id number]. The specimen is inked and embedded in toto in two blocks. B: Received in formalin is a bradford-brown piece of skin measuring [id number]. The specimen is inked and embedded in toto in three blocks. 01/02/2018 Normal [facility] Comment on above: Performed By: #### D #### Dermatopathology RETINOID PANELon 01-01-2018 ALT enzyme act/vol 16 U/L Normal 7 - 45 [facility] Comment on above: Result Comment: Tania ents treated with Sulfasalazine may generate falsely decreased results for ALT. Performed By: #### R ETN2 #### [facility] [address] [place] [address] AST enzyme act/vol 24 U/L Normal 9 - 39 [facility] Comment on above: Performed By: #### R ETN2 #### [facility] [address] [place] [address] Triglyceride mass conc 273 mg/dL High 0 - 149 [facility] Comment on above: Result Comment: [...] dosing. Performed By: #### R ETN2 #### [facility] [address] [place] [address] Erythrocyte distribution width Ratio (RBC) 13.5 % Normal 11.5 - 14.5 [facility] Comment on above: Performed By: #### R ETN2 #### [facility] [address] [place] [address] Hematocrit Volume Fraction (Bld) 44.0 % Normal 36.0 - 46.0 [facility] Comment on above: Performed By: #### R ETN2 #### [facility] [address] [place] [address] Hemoglobin mass conc (Bld) 14.7 g/dL Normal 12.0 - 16.0 [facility] Comment on above: Performed By: #### R ETN2 #### [facility] [address] [place] [address] MCHC mass conc (RBC) 33.4 g/dL Normal 32.0 - 36.0 [facility] Comment on above: Performed By: #### R ETN2 #### [facility] [address] [place] [address] MCV Entitic volume (RBC) 88 fL Normal 80 - 100 [facility] Comment on above: Performed By: #### R ETN2 #### [facility] [address] [place] [address] Nucleated RBC/100 WBC Ratio (Bld) 0.0 /100 WBC Normal 0.0-0.0 [facility] Comment on above: Performed By: #### R ETN2 #### [facility] [address] [place] [address] Platelets #/vol (Bld) 284 10*3/uL Normal 150 - 450 [facility] Comment on above: Performed By: #### R ETN2 #### [facility] [address] [place] [address] RBC #/vol (Bld) 4.98 x10E12/L Normal 4.00 - 5.20 [facility] Comment on above: Performed By: #### R ETN2 #### [facility] [address] [place] [address] WBC #/vol (Bld) 8.6 10*3/uL Normal 4.4 - 11.3 [facility] Comment on above: Performed By: #### R ETN2 #### [facility] [address] [place] [address] Vital Signs Date Time Vital Sign Value Performing Clinician Facility 05-18-2023 15:40-0400 Body temperature 97.8 [degF] MD Ablert Christianson Work Phone: [facility] 05-18-2023 15:40-0400 Body weight 93.44 kg MD Albert Christianson Work Phone: [facility] 05-18-2023 15:40-0400 Diastolic blood pressure 79 mm[Hg] MD Albert Christianson Work Phone: [facility] 05-18-2023 15:40-0400 Heart rate 89 /min MD Albert Christianson Work Phone: [facility] 05-18-2023 15:40-0400 Respiratory rate 16 /min MD Ablert Christianson Work Phone: [facility] 05-18-2023 15:40-0400 SaO2% (BldA) [Mass fraction] 98 % MD Albert Christianson Work Phone: [facility] 05-18-2023 15:40-0400 Systolic blood pressure 120 mm[Hg] MD Albert Christianson Work Phone: [facility] 03-13-2023 09:15-0400 Body height 157.48 cm Renu Chris Other [employer] Other 03-13-2023 09:15-0400 Body mass index (BMI) [Ratio] 37.71 kg/m2 Renu Chris Other [employer] Other 03-13-2023 09:15-0400 Body temperature 97.8 [degF] Renu Chris Other [employer] Other 03-13-2023 09:15-0400 Body weight 93.53 kg Renu Chris Other [employer] Other 03-13-2023 09:15-0400 Diastolic blood pressure 77 mm[Hg] Renu Chris Other [employer] Other 03-13-2023 09:15-0400 Respiratory rate 18 /min Renu Stephenley Other [employer] Other 03-13-2023 09:15-0400 SaO2% (BldA) [Mass fraction] 98 % Renu Stephenley Other [employer] Other 03-13-2023 09:15-0400 Systolic blood pressure 122 mm[Hg] Renu Stephenley Other [employer] Other 02-22-2023 09:10-0400 Body height 157.48 cm Leti Jessi Other [employer] Other 02-22-2023 09:10-0400 Body mass index (BMI) [Ratio] 37.67 kg/m2 Leti Jessi Other [employer] Other 02-22-2023 09:10-0400 Body temperature 97.8 [degF] Leti Jessi Other [employer] Other 02-22-2023 09:10-0400 Body weight 93.44 kg Leti Jessi Other [employer] Other 02-22-2023 09:10-0400 Diastolic blood pressure 87 mm[Hg] Leti Jessi Other [employer] Other 02-22-2023 09:10-0400 Respiratory rate 18 /min Leti Jessi Other [employer] Other 02-22-2023 09:10-0400 SaO2% (BldA) [Mass fraction] 98 % Leti Jessi Other [employer] Other 02-22-2023 09:10-0400 Systolic blood pressure 147 mm[Hg] Leti Bowen Other [employer] Other 01-05-2023 14:45-0400 Body height 157.48 cm Corey Grider Other [employer] Other 01-05-2023 14:45-0400 Body temperature 97.3 [degF] Corey Grider Other [employer] Other 01-05-2023 14:45-0400 Diastolic blood pressure 87 mm[Hg] Corey Marni Other [employer] Other 01-05-2023 14:45-0400 Systolic blood pressure 129 mm[Hg] Corey Grider Other [employer] Other 05-12-2022 17:30-0400 Body height 157.48 cm Adriana José Manuel Other [employer] Other 05-12-2022 17:30-0400 Body mass index (BMI) [Ratio] 34.75 kg/m2 Adriana Georges Other [employer] Other 05-12-2022 17:30-0400 Body temperature 98 [degF] Adriana Georges Other [employer] Other 05-12-2022 17:30-0400 Body weight 86.18 kg Adriana Georges Other [employer] Other 05-12-2022 17:30-0400 Diastolic blood pressure 62 mm[Hg] Adriana Georges Other [employer] Other 05-12-2022 17:30-0400 Respiratory rate 18 /min Adriana Georges Other [employer] Other 05-12-2022 17:30-0400 SaO2% (BldA) [Mass fraction] 98 % Adriana Georges Other [employer] Other 05-12-2022 17:30-0400 Systolic blood pressure 99 mm[Hg] Adriana Georges Other [employer] Other 11-10-2021 14:41-0400 Body height 160.02 cm MD Albert Christianson Work Phone: [facility] 10-28-2021 14:45-0400 Body height 157.48 cm Corey Grider Other [employer] Other 10-28-2021 14:45-0400 Body mass index (BMI) [Ratio] 38.41 kg/m2 Corey Grider Other [employer] Other 10-28-2021 14:45-0400 Body temperature 97.1 [degF] Corey Grider Other [employer] Other 10-28-2021 14:45-0400 Body weight 95.26 kg Corey Grider Other [employer] Other 10-28-2021 14:45-0400 Diastolic blood pressure 76 mm[Hg] Corey Grider Other [employer] Other 10-28-2021 14:45-0400 Systolic blood pressure 118 mm[Hg] Corey Grider Other [employer] Other 07-13-2021 11:00-0500 Body height 157.48 cm Nadeem Jayna Other [employer] Other 07-13-2021 11:00-0500 Body temperature 98.2 [degF] Nadeem Jayna Other [employer] Other 07-13-2021 11:00-0500 Respiratory rate 18 /min Nadeem Jayna Other [employer] Other 07-13-2021 11:00-0500 SaO2% (BldA) [Mass fraction] 98 % Nadeem Jayna Other [employer] Other Encounters Encounter Date Encounter Type Care Provider Facility Start: 10-19-2023 End: 10-19-2023 ambulatory Pualino Clemens Facility:[facility] Start: 10-19-2023 End: 10-19-2023 ambulatory MD Albert Christianson Work Phone: [facility] Work Phone: Start: 10-19-2023 End: 10-19-2023 Patient encounter procedure MD Albert Christianson Work Phone: [facility] [address] Work Phone: Start: 09-20-2023 End: 09-21-2023 ambulatory AFFILIATE MARKETING COORDINATOR Jessica L Brown Facility:[facility] Start: 09-20-2023 End: 09-20-2023 Patient encounter procedure Jessica L Brown [facility] Start: 09-12-2023 End: 09-13-2023 ambulatory AFFILIATE MARKETING COORDINATOR Jessica L Brown Facility:[facility] [place] Start: 06-19-2023 End: 06-20-2023 ambulatory AFFILIATE MARKETING COORDINATOR Jessica L Brown Facility:[facility] Start: 06-19-2023 End: 06-19-2023 Lab Drop off Jessica L Brown [facility] Start: 06-12-2023 End: 06-12-2023 ambulatory SAIRA DHALIWAL Not Available Start: 05-22-2023 End: 05-23-2023 ambulatory AFFILIATE MARKETING COORDINATOR Jessica L Brown Facility:[facility] [place] Start: 05-18-2023 ambulatory Tanya Felix Facility:[facility] Start: 05-18-2023 End: 05-18-2023 ambulatory MD Albert Christianson Work Phone: [facility] Work Phone: Start: 05-18-2023 End: 05-18-2023 Registered Recurring MD Albert Christianson Work Phone: [facility] Work Phone: Start: 05-16-2023 End: 05-17-2023 ambulatory AFFILIATE MARKETING COORDINATOR Jessica L Brown Facility:[facility] [place] Start: 05-15-2023 End: 06-19-2023 ambulatory AFFILIATE MARKETING COORDINATOR Jessica L Brown Facility:CD:[id number] Start: 05-01-2023 End: 05-01-2023 ambulatory MD Albert Christianson Work Phone: [facility] Work Phone: Start: 05-01-2023 End: 05-01-2023 Patient encounter procedure MD Albert Christianson Work Phone: [facility] Start: 04-17-2023 End: 04-18-2023 ambulatory AFFILIATE MARKETING COORDINATOR Jessica L Brown Facility:[facility] [place] Start: 03-31-2023 ambulatory AFFILIATE MARKETING COORDINATOR Jessica L Brown Facil ity:[facility] [place] Start: 03-14-2023 End: 03-14-2023 ambulatory Jannet Chatman Other [employer] Other Start: 03-14-2023 Nursing evaluation o f patient and report Jannet Chatman [facility] Start: 03-13-2023 End: 03-13-2023 ambulatory Renu Chris Other [employer] Other Start: 03-13-2023 Office outpatient visit 15 minutes Renu Chris [facility] Start: 03-03-2023 End: 03-04-2023 ambulatory AFFILIATE MARKETING COORDINATOR Jessica L Brown Facility:[facility] [place] Start: 02-22-2023 End: 02-22-2023 ambulatory Leti Bowen Other [employer] Other Start: 02-22-2023 Office outpatient visit 15 minutes Leti Jessi [facility] Start: 02-13-2023 End: 02-13-2023 ambulatory Ze Larose [facility] Facility:[facility] Start: 01-05-2023 End: 01-05-2023 ambulatory Jessica Nguyen [employer] Other Start: 01-05-2023 Office outpatient visit 25 minutes Corey Grider [facility] Start: 12-21-2022 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 Facility: Start: 10-25-2022 End: 10-25-2022 ambulatory Jessica Hernandezermminal Facility:[facility] Start: 10-17-[address] SAIRA DHALIWAL . Fac ility:[facility] Start: 05-12-2022 End: 05-12-2022 ambulatory Adriana Georges Other [employer] Other Start: 05-12-2022 Office outpatient visit 15 minutes Adriana Georges [facility] Start: 03-22-2022 End: 03-22-2022 ambulatory Joe Mei Other [employer] Other Start: 03-22-2022 Nursing evaluation o f patient and report Joe Sigifredo [facility] Start: 03-19-2022 End: 03-20-[address] SAIRA DHALIWAL . Facility:[facility] Start: 02-10-[address] TANYA WASHINGTON Facility :[facility] Start: 02-08-2022 End: 02-09-[address] ALBERT CHRISTIANSON . Facility:[facility] Start: 01-20-2022 End: 01-21-[address] ALBERT CHRISTIANSON . Facility:[facility] Start: 12-31-2021 End: 12-31-[address] DANIEL AGOSTO . Facility:[facility] Start: 12-30-2021 (FCCC INJ) FCC Injection Cindy Goetz [facility] Start: 12-30-2021 End: 12-30-2021 ambulatory Cindy Goetz Other [employer] Other Start: 11-05-2021 End: 11-05-2021 ambulatory Corey Grider Other [employer] Other Start: 11-05-2021 Telephone encounter [facility]y [facility] Start: 11-04-2021 End: 11-04-2021 ambulatory Corey Grider Other [employer] Other Start: 11-04-2021 Telephone encounter Corey MCKEON [facility] Start: 10-28-2021 End: 10-28-2021 ambulatory Corey Grider Other [employer] Other Start: 10-28-2021 Office outpatient ne w 45 minutes Corey Grider [facility] Start: 07-13-2021 End: 07-13-2021 ambulatory Nadeem Dorantes Other [employer] Other Start: 07-13-2021 Office outpatient visit 15 [...] Date Care Activity Detail Author Start: 11-10-2021 [facility] Start: 09-07-2018 [facility] Start: 07-06-2018 [facility] Start: 06-08-2018 [facility] Bacteria identified in Urine by Culture [facility] Estradiol (E2) [Mass /volume] in Serum or Plasma [facility] Estradiol (E2) [Mass /volume] in Serum or Plasma [facility] Lutropin [Units/volu me] in Serum or Plasma [facility] Lutropin [Units/volu me] in Serum or Plasma [facility] Immunizations Immunization Date Immunization Notes Care Provider Velma miles 12-30-2021 zoster vaccine recombinant Cindy Jimenezt Other [facility] 09-13-2020 SARS-CoV-2 (COVID-19 ) mRNA-1273 vaccine Jessica Brown [facility] 08-26-2020 COVID-19 mRNA-1273 (Modernjoleen) MD Albert Christianson Work Phone: [facility] 07-31-2020 SARS-CoV-2 (COVID-19 ) mRNA-1273 vaccine Jessica Brown [facility] 07-29-2020 COVID-19 mRNA-1273 (Noe) MD Albert Christianson Work Phone: [facility] 03-31-2020 influenza virus vaccine, unspecified formulation Jessica Brown [facility] Payers Date Payer Category Payer Unknown [id number] 2.16.84 [id number] 1972 Unknown [id number] 2.16.84 0.1.412817.3.579.2.593 1972 Unknown [id number] 2.16.84 0.1.934422.3.579.2.593 1972 Unknown [id number] 2.16.84 0.1.409443.3.579.2.593 1972 Unknown [id number] 2.16.84 0.1.185050.3.579.2.593 1972 Unknown [id number] 2.16.84 0.1.470210.3.579.2.593 1972 Unknown [id number] 2.16.84 0.1.433233.3.579.2.593 1972 Unknown [id number] 2.16.840. 1.966116.3.579.2.1259 1972 Unknown [id number] 2.16.8 40.1.187195.3.579.2.727 1972 Unknown [id number] 2.16.8 40.1.689034.3.579.2.727 1972 Unknown [id number] 2.16.8 40.1.536491.3.579.2.727 1972 Unknown [id number] 2.16.8 40.1.324171.3.579.2.727 1972 Unknown [id number] 2.16.8 40.1.680342.3.579.2.727 1972 Unknown [id number] 2.16.8 40.1.856010.3.579.2.727 1972 Unknown [id number] 2.16.8 40.1.555784.3.579.2.727 1972 Unknown [id number] 2.16.8 40.1.832055.3.579.2.727 1972 Unknown [id number] 2.16.8 40.1.367942.3.579.2.727 1972 Unknown [id number] 2.16.8 40.1.657473.3.579.2.727 1959 Private Health Insurance [id number] Self-pay 1959 Unknown [id number] 2. 16.840.1.195985.19 Private Health Insurance [id number] 2.16.840.1.543681.19 Unknown [id number] 2.16.8 40.1.064858.3.579.2.531 Unknown [id number] 2.16.8 40.1.691765.3.579.2.531 Unknown [id number] 2.16.8 40.1.690010.3.579.2.531 Unknown [id number] 2.16.8 40.1.823056.3.579.2.531 Unknown [id number] 2.16.8 40.1.269745.3.579.2.531 Social History Date Type Detail Facility Unknown if ever smoked [employer] Other Sex Assigned At [facility] Start: 05-18-2023 End: 09-12-2023 Tobacco smoking status NHIS Never smoked tobacco (finding) [facility] Start: 1970 Sex Assigned At Female F [facility] Tobacco smoking status Never [facility] Clinical Notes 06-09-2018 to 06-19-2023 Laboratory Note Date & Type Note Facility 06-19-2023 Evaluation + Plan note Diagnostic Tests PendingUrine Culture 06/19/23 Future Scheduled TestsUrinalysis 12/13/[address] [facility] 05-17-2023 Note [id number]#[id number] [facility] 05-15-2023 Note [id number]#[id number] [facility] 05-15-2023 Note [id number]#[id number] [facility] Comment on above: Other Comment: ARNOLD MOSHER FAX. [facility] 03-14-2023 Evaluation note Encounter Date Diagnosis Assessment Notes Feb, Contact with and (suspected) exposure to other viral communicable diseases (ICD-10 - Z20.828) [employer] Other 08-14-2023 Evaluation note* Encounter Date Diagnosis [...] not. Patient verbalized understanding of treatment plan. [employer] Other 07-26-2023 Evaluation note* Encounter Date Diagnosis [...] your family physician next week as scheduled. [employer] Other 06-08-2023 Evaluation note* Encounter Date Diagnosis [...] at this time. Favor topical anti-itch routine kceu-kox-efdlhrf lotion such as Sarna etc. Will await lab results and call her once these are back. If rash worsens or symptoms develop that are new she is always welcome to call me or if things are acutely bad to go to the emergency room. Dec, Fatigue, unspecified type (ICD-10 - R53.83) [employer] Other 05-16-2023 Evaluation + Plan note Future Scheduled Tests Laboratory* Urinalysis 12/13/[address] 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 She had a long hospitalization at [facility] in late November 2020 for methicillin [...] next few weeks to rheumatology here in [place] to evaluate for possible autoimmune etiologies. We [...] now nearly 2 years from diagnosis of [id number] right breast cancer, ER+, ND neg, Her neg high risk Oncotype 47 [...] Maria M is being evaluated by her Field Party Manager for PFTs due to persistent dyspnea with exertion, possibly related to prior sepsis hospitalization in fall 2018. No recurrent hydradenitis suppurativa lesions. Still has hot flashes, but improved control on gabapentin 300mg tid and would like to continue current dosing. She does not want to escalate dose due to concerns for sedation. 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 She did not see medical oncology or discuss breast conserving therapy or immediate reconstruction with her surgeon. On 05/07/2018, she underwent right modified radical mastectomy with axillary lymph node dissection (no attempt for sentinel lymph node) and left simple mastectomy with axillary dissection. Pathology showed right breast with 4.2cm mass, 4 lymph nodes negative--ER/ND/Her2 unchanged. No cancer in left breast or [...] resolved. This will also be followed by [employer]. --She has persistent mild fatigue and she received an Ppafml-d-Jyad for further chemotherapy and lab draws. No [...] [facility] [...] mg 3 times daily for 1 week, [id number] mg 3 times daily for 1 week. [...] 3-month follow-up. She relates sepsis hospitalization at [facility] and we do not have records [...] LN neg), moderately differentiated adenocarcinoma, ER 90%, ND 0%, Her2 not overexpressed --US guided needle biopsy 04/20/2018 of clinical 5 cm mass at 10 o'clock--this revealed an invasive mammary carcinoma, grade 2-3, ER 95%, ND 0%, Her2 negative. --Bilateral mastectomy with axillary [...] She had 2 hospitalizations for sepsis at [facility] in November and March resulting from [...] to persistent symptoms I sent her to [place].[facility] commissioner Dr. Gilbert in [place] for evaluation of her urgency/dysuria. Urgency and [...] of prior bilateral eye redness/drainage--on eyedrops from enrichment director. No vision change. Ears, nose, mouth, throat: [...] skin contaminant growth. I recommended reevaluation by [employer] SALES CONSULTANT for her dysuria and to determine other [...] screening but may offer a trial at [facility]). 06/20/2019: She noted hospitalization for sepsis at [facility] in early April 2019 and infusion [...] due to pain in [place] and [place] prior surgeon I referring her [...] inthe last 6 months for sepsis at [facility] resulting from cellulitis of the left [...] to follow-up in [address] Wash[place]gon with repeat hormone testing, left axillary US [...] is following with Dr. Grider and considering halfway antibiotic therapy. (4) Vasomotor symptoms due to [...] she was hospitalized early April 2019 at [facility] for sepsis and infusion port was [...] association with pancreatic cancer and I contacted [facility] to see if there is any recommended [...] for coordination of care (as documented) and azpz-ms-zwck counseling of patient and/or family. Dictated By: Tanya Washington MD DD/ 1517 Signed By: <Electronically signed by MD Tanya Washington> 05/12/22 1931 [facility] Work Phone: 1(526) 818-932210-13-2022 Evaluation note* Encounter Date Diagnosis Assessment Notes [...] completed to make sure infection has cleared. [employer] Other 08-23-2022 Evaluation note* Encounter Date Diagnosis Assessment Notes Treatment Notes Treatment Clinical Notes Feb, Contact with and (suspected) exposure to other viral communicable diseases (ICD-10 - Z20.828) [employer] Other 06-02-2022 Evaluation note* Encounter Date Diagnosis [...] and provided as a take home handout. [employer] Other 04-13-2022 Progress note Author Sheri Kovacs [facility] November 10, 2021 3:48pm Note Date/Time November 10, 2021 2:4 5pm [facility] at [address] [address] Hem/Onc Follow Up Note - OP Signed Patient: Maria M Mckeon MR#: [id number] : 1970 Acct:[id number] Age/Sex: 51 / F Type: REG RCR [...] She states she likely will go on halfway antibiotics if any additional infections arise after [...] sepsis. She had a long hospitalization at [facility] in late November 2020 for methicillin [...] next few weeks to rheumatology here in [place] to evaluate for possible autoimmune etiologies. We have not performed an immune evaluation for her recurrent infections and I recommended sending quantitative immunoglobulins to determine if she has hypogammaglobulinemia. We also agreed to send LH, FSH, and estradiol level to determine if she is now postmenopausal. If so we will transition her to aromatase inhibitor therapy from tamoxifen. Hermost recent DEXA scan was in December 2019 [...] now nearly 2 years from diagnosis of [id number] right breast cancer, ER+, ND neg, Her neg high risk Oncotype 47 [...] Maria M is being evaluated by her Field Party Manager for PFTs due to persistent dyspnea with exertion, possibly related to prior sepsis hospitalization in fall 2018. No recurrent hydradenitis suppurativa lesions. Still has hot flashes, but improved control on gabapentin 300mg tid and would like to continue current dosing. She does not want to escalate dose due to concerns for sedation. 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 She did not see medical oncology or discuss breast conserving therapy or immediate reconstruction with her surgeon. On 05/07/2018, she underwent right modified radical mastectomy with axillary lymph node dissection (no attempt for sentinel lymph node) and left simple mastectomy with axillary dissection. Pathology showed right breast with 4.2cm mass, 4 lymph nodes negative--ER/ND/Her2 unchanged. No cancer in left breast or [...] resolved. This will also be followed by [employer] SAL[employer]ANT. --She has persistent mild fatigue and she received an Qmragl-m-Patd for further chemotherapy and lab draws. No [...] [facility] [...] mg 3 times daily for 1 week, [id number] mg 3 times daily for 1 week. [...] 3-month follow-up. She relates sepsis hospitalization at [facility] and we do not have records [...] LN neg), moderately differentiated adenocarcinoma, ER 90%, ND 0%, Her2 not overexpressed --US guided needle biopsy 04/20/2018 of clinical 5 cm mass at 10 o'clock--this revealed an invasive mammary carcinoma, grade 2-3, ER 95%, ND 0%, Her2 negative. --Bilateral mastectomy with axillary [...] She had 2 hospitalizations for sepsis at [facility] in November and March resulting from [...] to persistent symptoms I sent her to u.s. commissioner Dr. Gilbert in [place] for evaluation of her urgency/dysuria. Urgency and [...] skin contaminant growth. I recommended reevaluation by CAR SALES CONSULTANT for her dysuria and to determine other [...] screening but may offer a trial at [facility]). 06/20/2019: She noted hospitalization for sepsis at [facility] in early April 2019 and infusion [...] due to pain [place] and [place] prior surgeon I referring her [...] inthe last 6 months for sepsis at [facility] resulting from cellulitis of the left [...] is following with Dr. Grider and considering termite control technician antibiotic therapy. (4) Left-sided chest wall pain [...] she was hospitalized early April 2019 at [facility] for sepsis and infusion port was [...] association with pancreatic cancer and I contacted [facility] to see if there is any recommended [...] for coordination of care (as documented) and qcue-rq-fidl counseling of patient and/or family. Dictated By: Sheri Kovacs APRN DD/ 1444 Signed By: <Electronically signed by CHUY Kovacs> 11/10/21 1548 [facility] Work Phone: 1(674) 296-455704-07-2022 Evaluation note* Encounter Date Diagnosis Assessment Notes Treatment Notes Treatment Clinical Notes Oct, Recurrent cellulitis (ICD-10 - L03.90) [employer] Other 03-31-2022 Evaluation note* Encounter Date Diagnosis [...] I89.0) Sep, Hidradenitis suppurativa (ICD-10 - L73.2) [employer] Other 12-14-2021 Evaluation note* Encounter Date Diagnosis [...] Patient care instructions given in writting by [facility] document. [employer] Other 09-29-2021 Progress note Author Tanya Washington [facility] April 28, 2021 1:55pm Note Date/Time April 28, 2021 9:49am [facility] at [address] [address] Hem/Onc Follow Up Note - OP Signed Patient: Maria M Mckeon MR#: [id number] : 1970 Acct:[id number] Age/Sex: 50 / F Type: REG RCR [...] sepsis. She had a long hospitalization at [facility] in late November 2020 for methicillin [...] next few weeks to rheumatology here in [place] to evaluate for possible autoimmune etiologies. We [...] months thereafter until 5 years. She continues [id number] mg daily with some intermittent hot flashes [...] now nearly 2 years from diagnosis of [id number] right breast cancer, ER+, ND neg, Her neg high risk Oncotype 47 [...] Maria M is being evaluated by her Field Party Manager for PFTs due to persistent dyspnea with exertion, possibly related to prior sepsis hospitalization in fall 2018. No recurrent hydradenitis suppurativa lesions. Still has hot flashes, but improved control on gabapentin 300mg tid and would like to continue current dosing. She does not want to escalate dose due to concerns for sedation. 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 She did not see medical oncology or discuss breast conserving therapy or immediate reconstruction with her surgeon. On 05/07/2018, she underwent right modified radical mastectomy with axillary lymph node dissection (no attempt for sentinel lymph node) and left simple mastectomy with axillary dissection. Pathology showed right breast with 4.2cm mass, 4 lymph nodes negative--ER/ND/Her2 unchanged. No cancer in left breast or [...] resolved. This will also be followed by [employer] SAL[employer]ANT. --She has persistent mild fatigue and she received an Ambvuz-l-Nmng for further chemotherapy and lab draws. No [...] [facility] [...] mg 3 times daily for 1 week, [id number] mg 3 times daily for 1 week. [...] 3-month follow-up. She relates sepsis hospitalization at [facility] and we do not have records [...] LN neg), moderately differentiated adenocarcinoma, ER 90%, ND 0%, Her2 not overexpressed --US guided needle biopsy 04/20/2018 of clinical 5 cm mass at 10 o'clock--this revealed an invasive mammary carcinoma, grade 2-3, ER 95%, ND 0%, Her2 negative. --Bilateral mastectomy with axillary [...] She had 2 hospitalizations for sepsis at [facility] in November and March resulting from [...] to persistent symptoms I sent her to [place].s. commissioner Dr. Gilbert in [place] for evaluation of her urgency/dysuria. Urgency and [...] of prior bilateral eye redness/drainage--on eyedrops from enrichment director. No vision change. Ears, nose, mouth, throat: [...] skin contaminant growth. I recommended reevaluation by CAR SALES CONSULTANT for her dysuria and to determine other [...] screening but may offer a trial at [facility]). 06/20/2019: She noted hospitalization for sepsis at [facility] in early April 2019 and infusion [...] due to pain in [place] and [place] prior surgeon I referring her [...] inthe last 6 months for sepsis at [facility] resulting from cellulitis of the left [...] she was hospitalized early April 2019 at [facility] for sepsis and infusion port was [...] association with pancreatic cancer and I contacted [facility] to see if there is any recommended [...] for coordination of care (as documented) and ydom-pa-hmta counseling of patient and/or family. Dictated By: Tanya Washington MD DD/ 0949 Signed By: <Electronically signed by MD Tanya Washington> 04/28/21 3415 [facility] Work Phone: 1(496) 588-893704-26-2021 Progress note Author Tanya Washington [facility] November 23, 2020 10:21am Note Date/Time November 23, 2020 9:5 2am [facility] [place] [address] Hem/Onc Follow Up Note - OP Signed Patient: Maria M Mckeon MR#: [id number] : 1970 Acct:[id number] Age/Sex: 50 / F Type: REG RCR [...] now nearly 2 years from diagnosis of [id number] right breast cancer, ER+, ND neg, Her neg high risk Isigzhby42 s/p upfront bilateral mastectomy, adjuvant dose dense [...] Maria M is being evaluated by her Field Party Manager for PFTs due to persistent dyspnea with exertion, possibly related to prior sepsis hospitalization in fall 2018. No recurrent hydradenitis suppurativa lesions. Still has hot flashes, but improved control on gabapentin 300mg tid and would like to continue current dosing. She does not want to escalate dose due to concerns for sedation. 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 She did not see medical oncology or discuss breast conserving therapy or immediate reconstruction with her surgeon. On 05/07/2018, she underwent right modified radical mastectomy with axillary lymph node dissection (no attempt for sentinel lymph node) and left simple mastectomy with axillary dissection. Pathology showed right breast with 4.2cm mass, 4 lymph nodes negative--ER/ND/Her2 unchanged. No cancer in left breast or [...] resolved. This will also be followed by [employer] SAL[employer]. --She has persistent mild fatigue and she received an Byobiu-y-Gsbj for further chemotherapy and lab draws. No [...] [facility] recommended [...] followed up with her prior surgeon Dr. Hutchinsonsince diagnosis. She agreed to evaluation with ultrasound [...] mg 3 times daily for 1 week, [id number] mg 3 times daily for 1 week. [...] 3-month follow-up. She relates sepsis hospitalization at [facility] and we do not have records [...] LN neg), moderately differentiated adenocarcinoma, ER 90%, ND 0%, Her2 not overexpressed --Sent Oncotype DX [...] to persistent symptoms I sent her to u.s. commissioner Dr. Gilbert in [place] for evaluation of her urgency/dysuria. Urgency and [...] of prior bilateral eye redness/drainage--on eyedrops from enrichment director. No vision change. Ears, nose, mouth, throat: [...] % (Auto) 77.0, Lymph % (Auto) 18.8, Ponce % (Auto) 3.8, Eos % (Auto) 0.1, Baso % (Auto) 0.3, Neut # (Auto) 5.9, Lymph # (Auto) 1.5, Ponce # (Auto) 0.3, Eos# (Auto) 0.0, Baso [...] skin contaminant growth. I recommended reevaluation by CAR SALES CONSULTANT for her dysuria and to determine other [...] screening but may offer a trial at [facility]). 06/20/2019: She noted hospitalization for sepsis at [facility] in early April 2019 and infusion [...] due to pain in [place] and [place] prior surgeon I referring her [...] she was hospitalized early April 2019 at [facility] for sepsis and infusion port was [...] association with pancreatic cancer and I contacted [facility] to see if there is any recommended [...] for coordination of care (as documented) and kvxu-gz-iacp counseling of patient and/or family. Dictated By: Tanya Washington MD DD/ [id number] Signed By: <Electronically signed by MD Tanya Washington> 11/23/20 1021 [facility] Work Phone: 1(687) 583-442912-28-2020 Progress note Author Tanya Washington [facility] July 27, 2020 3:00pm Note Date/Time July 27, 2020 9:13am [facility] [place] [address] Hem/Onc Follow Up Note - OP Signed Patient: Maria M Mckeon MR#: [id number] : 1970 Acct:[id number] Age/Sex: 50 / F Type: REG RCR [...] now nearly 2 years from diagnosis of [id number] right breast cancer, ER+, ND neg, Her neg high risk Oncotype 47 [...] Maria M is being evaluated by her Field Party Manager for PFTs due to persistent dyspnea with exertion, possibly related to prior sepsis hospitalization in fall 2018. No recurrent hydradenitis suppurativa lesions. Still has hot flashes, but improved control on gabapentin 300mg tid and would like to continue current dosing. She does not want to escalate dose due to concerns for sedation. 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 She did not see medical oncology or discuss breast conserving therapy or immediate reconstruction with her surgeon. On 05/07/2018, she underwent right modified radical mastectomy with axillary lymph node dissection (no attempt for sentinel lymph node) and left simple mastectomy with axillary dissection. Pathology showed right breast with 4.2cm mass, 4 lymph nodes negative--ER/ND/Her2 unchanged. No cancer in left breast or [...] resolved. This will also be followed by [employer] SAL[employer]. --She has persistent mild fatigue and she received an Zkqfmn-t-Liub for further chemotherapy and lab draws. No [...] [facility] recommended [...] mg 3 times daily for 1 week, [id number] mg 3 times daily for 1 week. [...] 3-month follow-up. She relates sepsis hospitalization at [facility] and we do not have records [...] LN neg), moderately differentiated adenocarcinoma, ER 90%, ND 0%, Her2 not overexpressed --Sent Oncotype DX [...] to persistent symptoms I sent her to u.[facility]. commissioner Dr. Gilbert in [place] for evaluation of her urgency/dysuria. Urgency and [...] of prior bilateral eye redness/drainage--on eyedrops from enrichment director. No vision change. Ears, nose, mouth, throat: [...] Allergies Allergies Sulfa (Sulfonamide Antibiotics) Allergy (Verified 12/18/20 13:55) Hives Home Medications ondansetron HCl [Zofran] [...] skin contaminant growth. I recommended reevaluation by [employer] SALES CONSULTANT for her dysuria and to determine other [...] screening but may offer a trial at [facility]). 06/20/2019: She noted hospitalization for sepsis at [facility] in early April 2019 and infusion [...] due to pain in the [place] and [place] prior surgeon I referring her [...] she was hospitalized early April 2019 at [facility] for sepsis and infusion port was [...] association with pancreatic cancer and I contacted [facility] to see if there is any recommended [...] for coordination of care (as documented) and vzuy-cp-kknr counseling of patient and/or family. Dictated By: Tanya Washington MD DD/ 1 Signed By: <Electronically signed by MD Tanya Washington> 07/27/20 1852 [facility] Work Phone: 1([phone]) 776-582612-10-2020 Progress note Author Tanya Washington [facility] July 09, 2020 7:42am Note Date/Time July 08, 2020 2 :58pm [facility] [place] [address] Hem/Onc Follow Up Note - OP Signed Patient: Maria M Mckeon MR#: [id number] : 1970 Acct:[id number] Age/Sex: 50 / F Type: REG RCR [...] now nearly 2 years from diagnosis of [id number] right breast cancer, ER+, ND neg, Her neg high risk Oncotype 47 [...] Maria M is being evaluated by her Field Party Manager for PFTs due to persistent dyspnea with exertion, possibly related to prior sepsis hospitalization in fall 2018. No recurrent hydradenitis suppurativa lesions. Still has hot flashes, but improved control on gabapentin 300mg tid and would like to continue current dosing. She does not want to escalate dose due to concerns for sedation. 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 She did not see medical oncology or discuss breast conserving therapy or immediate reconstruction with her surgeon. On 05/07/2018, she underwent right modified radical mastectomy with axillary lymph node dissection (no attempt for sentinel lymph node) and left simple mastectomy with axillary dissection. Pathology showed right breast with 4.2cm mass, 4 lymph nodes negative--ER/ND/Her2 unchanged. No cancer in left breast or [...] resolved. This will also be followed by [employer] SAL[employer]. --She has persistent mild fatigue and she received an Kxoowc-y-Jhgy for further chemotherapy and lab draws. No [...] [facility] [...] mg 3 times daily for 1 week, [id number] mg 3 times daily for 1 week. [...] 3-month follow-up. She relates sepsis hospitalization at [facility] and we do not have records [...] LN neg), moderately differentiated adenocarcinoma, ER 90%, ND 0%, Her2 not overexpressed --Sent Oncotype DX [...] to persistent symptoms I sent her to u.s. commissioner Dr. Gilbert in [place] for evaluation of her urgency/dysuria. Urgency and [...] of prior bilateral eye redness/drainage--on eyedrops from enrichment director. No vision change. Ears, nose, mouth, throat: [...] Weight 2.07 - Vital Signs Vital Signs: 12/09/20 14:51 Temperature 97.3 F L Pulse Rate [...] skin contaminant growth. I recommended reevaluation by CAR SALES CONSULTANT for her dysuria and to determine other [...] screening but may offer a trial at [facility]). 06/20/2019: She noted hospitalization for sepsis at [facility] in early April 2019 and infusion [...] she was hospitalized early April 2019 at [facility] for sepsis and infusion port was [...] association with pancreatic cancer and I contacted [facility] to see if there is any recommended [...] for coordination of care (as documented) and ousj-ei-mvuy counseling of patient and/or family. Dictated By: Tanya Washington MD DD/ 1457 Signed By: <Electronically signed by MD Tanya Washington> 07/09/20 5182 [facility] Work Phone: [phone] Progress note Author Tanya Washington [facility] March 11, 2020 2:07pm Note Date/Time March 11, 2020 11 :43am [facility] [place] [id number] Hem/Onc Follow Up Note - OP Signed Patient: Maria M Mckeon MR#: [id number] : 1970 Acct:[id number] Age/Sex: 49 / F Type: REG RCR [...] now nearly 2 years from diagnosis of [id number] right breast cancer, ER+, ND neg, Her neg high risk Oncotype 47 [...] Maria M is being evaluated by her Field Party Manager for PFTs due to persistent dyspnea with exertion, possibly related to prior sepsis hospitalization in fall 2018. No recurrent hydradenitis suppurativa lesions. Still has hot flashes, but improved control on gabapentin 300mg tid and would like to continue current dosing. She does not want to escalate dose due to concerns for sedation. 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 She did not see medical oncology or discuss breast conserving therapy or immediate reconstruction with her surgeon. On 05/07/2018, she underwent right modified radical mastectomy with axillary lymph node dissection (no attempt for sentinel lymph node) and left simple mastectomy with axillary dissection. Pathology showed right breast with 4.2cm mass, 4 lymph nodes negative--ER/ND/Her2 unchanged. No cancer in left breast or [...] resolved. This will also be followed by CAR SALES CONSULTANT. --She has persistent mild fatigue and she received an Owrjbq-n-Jzei for further chemotherapy and lab draws. No [...] [facility] [...] mg 3 times daily for 1 week, [id number] mg 3 times daily for 1 week. [...] 3-month follow-up. She relates sepsis hospitalization at [facility] and we do not have records [...] LN neg), moderately differentiated adenocarcinoma, ER 90%, ND 0%, Her2 not overexpressed --Sent Oncotype DX [...] to persistent symptoms I sent her to u.s. commissioner Dr. Gilbert in [place] for evaluation of her urgency/dysuria. Urgency and [...] of prior bilateral eye redness/drainage--on eyedrops from enrichment director. No vision change. Ears, nose, mouth, throat: [...] skin contaminant growth. I recommended reevaluation by CAR SALES CONSULTANT for her dysuria and to determine other [...] screening but may offer a trial at [facility]). 06/20/2019: She noted hospitalization for sepsis at [facility] in early April 2019 and infusion [...] she was hospitalized early April 2019 at [facility] for sepsis and infusion port was [...] association with pancreatic cancer and I contacted [facility] to see if there is any recommended [...] for coordination of care (as documented) and tccp-bn-orcn counseling of patient and/or family. Dictated By: Tanya Washington MD DD/ 1139 Signed By: <Electronically signed by MD Tanya Washington> 03/11/20 1403 [facility] Work Phone: [phone] Progress note Author Tanya Washington [facility] December 11, 2019 8:40pm Note Date/Time December 11, 2019 2:14p m [facility] at [address] [address] Hem/Onc Follow Up Note - OP Signed Patient: Maria M Mckeon MR#: [id number] : 1970 Acct:[id number] Age/Sex: 49 / F Type: REG RCR [...] Maria M is being evaluated by her Field Party Manager for PFTs due to persistent dyspnea with exertion, possibly related to prior sepsis hospitalization in fall 2018. No recurrent hydradenitis suppurativa lesions. Still has hot flashes, but improved control on gabapentin 300mg tid and would like to continue current dosing. She does not want to escalate dose due to concerns for sedation. 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 She did not see medical oncology or discuss breast conserving therapy or immediate reconstruction with her surgeon. On 05/07/2018, she underwent right modified radical mastectomy with axillary lymph node dissection (no attempt for sentinel lymph node) and left simple mastectomy with axillary dissection. Pathology showed right breast with 4.2cm mass, 4 lymph nodes negative--ER/ND/Her2 unchanged. No cancer in left breast or [...] resolved. This will also be followed by CAR SALES CONSULTANT. --She has persistent mild fatigue and she received an Srmzji-j-Ytea for further chemotherapy and lab draws. No [...] we will discuss pancreas cancer screening with [facility] there is no routine screening recommended based [...] mg 3 times daily for 1 week, [id number] mg 3 times daily for 1 week. [...] 3-month follow-up. She relates sepsis hospitalization at [facility] and we do not have records [...] of prior bilateral eye redness/drainage--on eyedrops from enrichment director. No vision change. Ears, nose, mouth, throat: [...] skin contaminant growth. I recommended reevaluation by CAR SALES CONSULTANT for her dysuria and to determine other [...] screening but may offer a trial at [facility]). 06/20/2019: She noted hospitalization for sepsis at [facility] in early April 2019 and infusion [...] she was hospitalized early April 2019 at [facility] for sepsis and infusion port was [...] association with pancreatic cancer and I contacted [facility] to see if there is any recommended [...] for coordination of care (as documented) and qlbc-fw-mcgo counseling of patient and/or family. Dictated By: Tanya Washington MD DD/ 1415 Signed By: <Electronically signed by MD Tanya Washington> 12/11/192039 [facility] Work Phone: [phone] Progress note Author Tanya Washington [facility] September 13, 2019 7:07pm Note Date/Time September 12, 2019 3:51pm [facility] [place] [address] Hem/Onc Follow Up Note - OP Signed Patient: Maria M Mckeon MR#: [id number] : 1970 Acct:[id number] Age/Sex: 49 / F Type: REG RCR [...] Maria M is being evaluated by her Field Party Manager for PFTs due to persistent dyspnea with exertion, possibly related to prior sepsis hospitalization in fall 2018. No recurrent hydradenitis suppurativa lesions. Still has hot flashes, but improved control on gabapentin 300mg tid and would like to continue current dosing. She does not want to escalate dose due to concerns for sedation. 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 She did not see medical oncology or discuss breast conserving therapy or immediate reconstruction with her surgeon. On 05/07/2018, she underwent right modified radical mastectomy with axillary lymph node dissection (no attempt for sentinel lymph node) and left simple mastectomy with axillary dissection. Pathology showed right breast with 4.2cm mass, 4 lymph nodes negative--ER/ND/Her2 unchanged. No cancer in left breast or [...] resolved. This will also be followed by CAR SALES CONSULTANT. --She has persistent mild fatigue and she received an Shqebk-d-Kpib for further chemotherapy and lab draws. No [...] [facility] [...] mg 3 times daily for 1 week, [id number] mg 3 times daily for 1 week. [...] 3-month follow-up. She relates sepsis hospitalization at [facility] and we do not have records [...] of prior bilateral eye redness/drainage--on eyedrops from enrichment director. No vision change. Ears, nose, mouth, throat: [...] skin contaminant growth. I recommended reevaluation by CAR SALES CONSULTANT for her dysuria and to determine other [...] screening but may offer a trial at [facility]). 06/20/2019: She noted hospitalization for sepsis at [facility] in early April 2019 and infusion [...] she was hospitalized early April 2019 at [facility] for sepsis and infusion port was [...] with pancreatic cancer and I have contacted [facility] to see if there is any recommended [...] for coordination of care (as documented) and vsbz-vz-xzlm counseling of patient and/or family. Dictated By: Tanya Washington MD DD/ 1550 Signed By: <Electronically signed by MD Tanya Washington> 09/13/19 7444 [facility] Work Phone: [phone] Progress note Author Tanya Washington [facility] June 21, 2019 5:55pm Note Date/Time June 20, 2019 3:51pm [facility] [place] [address] Hem/Onc Follow Up Note - OP Signed Patient: Maria M Mckeon MR#: [id number] : 1970 Acct:[id number] Age/Sex: 49 / F Type: REG RCR Copies to: Driss Mendoza MD~ Subjective Date/Time of Service: Date of Service: 06/20/2019 Time of Service: 15:50 Chief Complaint: Patient is here for follow up history of breast cancer on tamoxifen. Patient was in [facility] May 05 for sepsis. Patient had port removal. Patient has spot above her coccyx that she would like looked at. Patient complains of shortness of breath at times. HPI: 06/20/2019: Maria M is here for 3-month follow-up. She relates sepsis hospitalization at [facility] and we do not have records [...] last visit with me 12/14/2018. She started couqmiuke25 mg daily on 12/24/2018 with hot flashes [...] invasive mammary carcinoma, grade 2-3, ER 95%, ND 0%, Her2 negative. She did not see medical oncology or discuss breast conserving therapy or immediate reconstruction with her surgeon. On 05/07/2018, she underwent right modified radical mastectomy with axillary lymph node dissection (no attempt for sentinel lymph node) and left simple mastectomy with axillary dissection. Pathology showed right breast with 4.2cm mass, 4 lymph nodes negative--ER/ND/Her2 unchanged. No cancer in left breast or [...] resolved. This will also be followed by CAR SALES CONSULTANT. --She has persistent mild fatigue and she received an Phdfos-e-Wwos for further chemotherapy and lab draws. No [...] [facility] [...] of prior bilateral eye redness/drainage--on eyedrops from enrichment director. No vision change. Ears, nose, mouth, throat: [...] skin contaminant growth. 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). 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 She has already had bilateral mastectomy but will be speaking with family members regarding recommendations for screening for this breast cancer associated gene. There is also an association with pancreatic cancer and I have contacted [facility] to see if there is any recommended [...] for coordination of care (as documented) and gnms-iw-xqcu counseling of patient and/or family. Dictated By: Tanya Washington MD DD/ 1550 Signed By: <Electronically signed by MD Tanya Washington> 06/21/19 6333 [facility] Work Phone: [phone] Progress note Author Tanya Washington [facility] March 28, 2019 9:09am Note Date/Time March 27, 2019 3: 57pm [facility] [place] [address] Hem/Onc Follow Up Note - OP Signed Patient: Maria M Mckeon MR#: [id number] : 1970 Acct:[id number] Age/Sex: 48 / F Type: REG RCR [...] mg 3 times daily for 1 week, vovy394 mg 3 times daily for 1 week. [...] last visit with me 12/14/2018. She started voruiouqk23 mg daily on 12/24/2018 with hot flashes [...] invasive mammary carcinoma, grade 2-3, ER 95%, ND 0%, Her2 negative. She did not see medical oncology or discuss breast conserving therapy or immediate reconstruction with her surgeon. On 05/07/2018, she underwent right modified radical mastectomy with axillary lymph node dissection (no attempt for sentinel lymph node) and left simple mastectomy with axillary dissection. Pathology showed right breast with 4.2cm mass, 4 lymph nodes negative--ER/ND/Her2 unchanged. No cancer in left breast or [...] resolved. This will also be followed by CAR SALES CONSULTANT. --She has persistent mild fatigue and she received an Hfcftx-y-Acxp for further chemotherapy and lab draws. No [...] [facility] [...] of prior bilateral eye redness/drainage--on eyedrops from enrichment director. No vision change. Ears, nose, mouth, throat: [...] is recommended. Impression dictated by: Selvin Devine M.D.03/22/2019 8:40 AM Assessment and Plan [...] skin contaminant growth. I recommended reevaluation by CAR SALES CONSULTANT for her dysuria and to determine other [...] a menstrual period since last visit for Lupbrianna on 12/06/2018. I will defer her survivorship [...] screening but may offer a trial at [facility]). She knows to call us sooner with [...] with pancreatic cancer and I have contacted [facility] to see if there is any recommended [...] for coordination of care (as documented) and ewgd-io-gfuu counseling of patient and/or family. Dictated By: Tanya Washington MD DD/ 1556 Signed By: <Electronically signed by MD Tanya Washington> 03/28/19 0909 [facility] Work Phone: [phone] Progress note Author Tanya Washington [facility] December 28, 2018 2:45pm Note Date/Time December 27, 2018 2:54p m [facility] [place] [address] Hem/Onc Follow Up Note - OP Signed Patient: Maria M Mckeon MR#: [id number] : 1970 Acct:[id number] Age/Sex: 48 / F Type: REG RCR [...] LN neg), moderately differentiated adenocarcinoma, ER 90%, ND 0%, Her2 not overexpressed --Sent Oncotype DX [...] due to persistent symptomsI sent her to u.[facility]. [facility] Dr. Gilbert in [place] for evaluation of her urgency/dysuria. Urgency and [...] new complaints from her last visit with or 12/14/2018. She started eafgqpxfx80 mg daily on 12/24/2018 with hot flashes [...] invasive mammary carcinoma, grade 2-3, ER 95%, ND 0%, Her2 negative. She did not see medical oncology or discuss breast conserving therapy or immediate reconstruction with her surgeon. On 05/07/2018, she underwent right modified radical mastectomy with axillary lymph node dissection (no attempt for sentinel lymph node) and left simple mastectomy with axillary dissection. Pathology showed right breast with 4.2cm mass, 4 lymph nodes negative--ER/ND/Her2 unchanged. No cancer in left breast or [...] resolved. This will also be followed by CAR SALES CONSULTANT. --She has persistent mild fatigue and she received an Pegvxa-u-Tssz for further chemotherapy and lab draws. No [...] [facility] [...] of prior bilateral eye redness/drainage--on eyedrops from enrichment director. No vision change. Ears, nose, mouth, throat: [...] skin contaminant growth. I recommended reevaluation by CAR SALES CONSULTANT for her dysuria and to determine other [...] screening but may offer a trial at [facility]). She knows to call us sooner with [...] next 2 weeks. I advised evaluation by CAR SALES CONSULTANT for persistent dysuria symptoms but these appeared [...] with pancreatic cancer and I have contacted [facility] to see if there is any recommended [...] for coordination of care (as documented) and bigh-zo-khta counseling of patient and/or family. 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 commissioner Dr. Gilbert in [place] for evaluation of her urgency/dysuria. 10. Pea [...] resolved. This will also be followed by CAR SALES CONSULTANT. She has persistent mild fatigue and she received an Yngrxm-e-Dhtz for further chemotherapy and lab draws. No [...] [facility] [...] invasive mammary carcinoma, grade 2-3, ER 95%, ND 0%, Her2 negative. She did not see medical oncology or discuss breast conserving therapy or immediate reconstruction with her surgeon. On 05/07/2018, she underwent right modified radical mastectomy with axillary lymph node dissection (no attempt for sentinel lymph node) and left simple mastectomy with axillary dissection. Pathology showed right breast with 4.2cm mass, 4 lymph nodes negative--ER/ND/Her2 unchanged. No cancer in left breast or [...] of prior bilateral eye redness/drainage--on eyedrops from enrichment director. No vision change. Ears, nose, mouth, throat: [...] skin contaminant growth. I recommended reevaluation by CAR SALES CONSULTANT for her dysuria and to determine other [...] screening but may offer a trial at [facility]). She knows to call us sooner with [...] next 2 weeks. I advised evaluation by CAR SALES CONSULTANT for persistent dysuria symptoms but these appeared [...] with pancreatic cancer and I have contacted [facility] to see if there is any recommended [...] for coordination of care (as documented) and rizd-sv-xcvu counseling of patient and/or family. 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 commissioner Dr. Gilbert in [place] for evaluation of her urgency/dysuria. HPI: The [...] resolved. This will also be followed by CAR SALES CONSULTANT. She has persistent mild fatigue and she received an Tvprhf-p-Ascz for further chemotherapy and lab draws. No [...] [facility] [...] invasive mammary carcinoma, grade 2-3, ER 95%, ND 0%, Her2 negative. She did not see medical oncology or discuss breast conserving therapy or immediate reconstruction with her surgeon. On 05/07/2018, she underwent right modified radical mastectomy with axillary lymph node dissection (no attempt for sentinel lymph node) and left simple mastectomy with axillary dissection. Pathology showed right breast with 4.2cm mass, 4 lymph nodes negative--ER/ND/Her2 unchanged. No cancer in left breast or [...] of prior bilateral eye redness/drainage--on eyedrops from enrichment director. No vision change. Ears, nose, mouth, throat: [...] % (Auto) 60.8, Lymph % (Auto) 23.1, Ponce % (Auto) 7.2, Eos % (Auto) 7.8, Baso % (Auto) 1.1, Neut # (Auto) 2.1, Lymph # (Auto) 0.8 L, Ponce # (Auto) 0.3, Eos # (Auto) 0.3, [...] Selvin Devine M.D.07/11/2018 5:12 PM Dictation Location: [id number] Any impression(s) listed above is documentation that [...] skin contaminant growth. I recommended reevaluation by CAR SALES CONSULTANT for her dysuria and to determine other [...] next 2 weeks. I advised evaluation by CAR SALES CONSULTANT for persistent dysuria symptoms but these appeared [...] with pancreatic cancer and I have contacted [facility] to see if there is any recommended [...] urinalyses showing skin contaminants on culture. Recommended CAR SALES CONSULTANT consultation and symptoms improved with trial of [...] for coordination of care (as documented) and qavi-ar-dief counseling of patient and/or family. 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 commissioner Dr. Gilbert in [place] for evaluation of her urgency/dysuria. HPI: The [...] resolved. This will also be followed by CAR SALES CONSULTANT. She has persistent mild fatigue and she received an Ijeqsb-w-Jvcy for further chemotherapy and lab draws. No [...] invasive mammary carcinoma, grade 2-3, ER 95%, ND 0%, Her2 negative. She did not see medical oncology or discuss breast conserving therapy or immediate reconstruction with her surgeon. On 05/07/2018, she underwent right modified radical mastectomy with axillary lymph node dissection (no attempt for sentinel lymph node) and left simple mastectomy with axillary dissection. Pathology showed right breast with 4.2cm mass, 4 lymph nodes negative--ER/ND/Her2 unchanged. No cancer in left breast or [...] of prior bilateral eye redness/drainage--on eyedrops from enrichment director. No vision change. Ears, nose, mouth, throat: [...] no additional complaints except as documented ONC PMFSH - General Attestation statement: The [...] November 2015 - Cardiac History Patient on [facility] Counseling Aide: No Does Patient Have Pacemaker?: No - Psych History Psychiatric history: anxiety, depression - STABLE CLEANER Hx : 1 Para: 1 STABLE CLEANER Comments: Has paraguard copper IUD does not have periods anymore--removedprior to chemotherapy - Family History Family History: CAD/MD, cancer, diabetes, hypertension - Genetics Would you [...] 7 Days 11/08/18 10:05: PHA Creatinine Clear [id number], Sodium 136, Potassium 3.6, Chloride 102, Carbon [...] Neut % (Auto) 61.7,Lymph % (Auto) 19.3, Ponce % (Auto) 6.5, Eos % (Auto) 11.5, Baso % (Auto) 1.0, Neut # (Auto) 2.5, Lymph # (Auto) 0.8 L, Ponce # (Auto) 0.3, Eos # (Auto) 0.5 H, Baso # (Auto) 0.0, Nucleated RBC % (auto) 0.1 11/05/18 09:57: PHA Creatinine Clear 105.0380960305, Sodium 139, Potassium 4.0, Chloride 104, Carbon [...] Neut % (Auto) 71.5,Lymph % (Auto) 16.3, Ponce % (Auto) 3.7, Eos % (Auto) 7.5, Baso % (Auto) 1.0, Neut # (Auto) 4.0, Lymph # (Auto) 0.9 L, Ponce # (Auto) 0.2, Eos # (Auto) 0.4, Baso # (Auto) 0.1, Nucleated RBC % (auto) 0.3 11/05/18 09:55: Urine Color Yellow, Urine Appearance Clear, Urine pH 5.0, Ur Specific Nahma 1.025, Urine Protein Negative, Urine Glucose (UA) [...] Selvin Devine M.D.07/11/2018 5:12 PM Dictation Location: [place] [address] Any impression(s) listed above is documentation that was entered by the reading physician into a diagnostic report(s) for Maria M C Mike. I have reviewed the report(s) and am [...] skin contaminant growth. I recommended reevaluation by CAR SALES CONSULTANT for her dysuria and to determine other [...] remainder of chemotherapy. I advised evaluation by CAR SALES CONSULTANT for persistent dysuria symptoms. Will follow closely with future examinations. No change in scarring in bilateral axillae or evidence of recurrence in that region. 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 Sending to CAR SALES CONSULTANT for further evaluation and trial of Pyridium [...] for coordination of care (as documented) and tflb-ir-jhrh counseling of patient and/or family. Dictated By: Tanya Washington MD DD/ 1019 Signed By: <Electronically signed by MD Tanya Washington> 11/09/18 1221 [facility] Work Phone: 1([phone]) [phone] Hospital Discharge instructionsAmbulatory Orders* Urinalysis Time Frame: 11/05/18, Location: Determined By Patient * Urine Culture Time Frame: 09/04/18, Location: Determined By Patient * Urinalysis Time Frame: 09/04/18, Location: Determined By Patient [facility] Work Phone: [phone]) 337-214003-09-2019 Progress note Author Tanya Washington [facility] October 06, 2018 3:38pm Note Date/Time October 05, 2018 10:5 0[facility] [place] at [address] [address] Hem/Onc Follow Up Note - OP Signed Patient: Maria M Mckeon MR#: [id number] : 1970 Acct:[id number] Age/Sex: 48 / F Type: REG RCR [...] LN neg), moderately differentiated adenocarcinoma, ER 90%, ND 0%, Her2 not overexpressed --Sent Oncotype DX [...] persistent mild fatigue and she received an Bmipsd-d-Yrtd for further chemotherapy and lab draws. No [...] invasive mammary carcinoma, grade 2-3, ER 95%, ND 0%, Her2 negative. She did not see medical oncology or discuss breast conserving therapy or immediate reconstruction with her surgeon. On 05/07/2018, she underwent right modified radical mastectomy with axillary lymph node dissection (no attempt for sentinel lymph node) and left simple mastectomy with axillary dissection. Pathology showed right breast with 4.2cm mass, 4 lymph nodes negative--ER/ND/Her2 unchanged. 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 No vision change. Ears, nose, [...] November 2015 - Cardiac History Patient on Preparole Counseling Aide: No Does Patient Have Pacemaker?: No - Psych History Psychiatric history: anxiety, depression - STABLE CLEANER Hx : 1 Para: 1 STABLE CLEANER Comments: Has paraguard copper IUD does not have periods anymore--removedprior to chemotherapy - Family History Family History: CAD/MD, cancer, diabetes, hypertension - Genetics Would you [...] 7 Days 10/04/18 09:52: PHA Creatinine Clear 110.8237915985, Sodium 136, Potassium 3.7, Chloride 103, Carbon [...] Neut % (Auto)62.2, Lymph % (Auto) 19.3, Ponce % (Auto) 4.9, Eos % (Auto) 12.4, Baso % (Auto) 1.2, Neut # (Auto) 2.5, Lymph # (Auto) 0.8 L, Ponce # (Auto) 0.2, Eos # (Auto) 0.5 H, Baso # (Auto) 0.1, Nucleated RBC % (auto) 0.2 09/28/18 13:07: Urine Color Yellow, Urine Appearance Cloudy A, Urine pH 5.0, Ur Specific Nahma 1.018, Urine Protein Negative, Urine Glucose (UA) [...] Selvin Devine M.D.07/11/2018 5:12 PM Dictation Location: [facility] Any impression(s) listed above is documentation [...] time she does not require referral to CAR SALES CONSULTANT for I&D. She has stable mild fatigue. [...] of chemotherapy. We will consider evaluation by CAR SALES CONSULTANT if persistent symptoms for possible I&D if [...] for coordination of care (as documented) and sgis-te-mzvh counseling of patient and/or family. Dictated By: Tanya Washington MD DD/ 1048 Signed By: <Electronically signed by MD Tanya Washington> 10/06/18 1538 [facility] Work Phone: [phone] Progress note Author Tanya Washington [facility] September 07, 2018 5:47pm Note Date/Time September 07, 2018 9 :44am [facility] [place] [address] Hem/Onc Follow Up Note - OP Signed Patient: Maria M Mckeon MR#: [id number] : 1970 Acct:[id number] Age/Sex: 48 / F Type: REG RCR [...] LN neg), moderately differentiated adenocarcinoma, ER 90%, ND 0%, Her2 not overexpressed --Sent Oncotype DX [...] likely continue Diflucan and refer her to CAR SALES CONSULTANT. She has persistent mild fatigue and she received an Ixnsys-w-Phcg for further chemotherapy and lab draws. She [...] invasive mammary carcinoma, grade 2-3, ER 95%, ND 0%, Her2 negative. She did not see medical oncology or discuss breast conserving therapy or immediate reconstruction with her surgeon. On 05/07/2018, she underwent right modified radical mastectomy with axillary lymph node dissection (no attempt for sentinel lymph node) and left simple mastectomy with axillary dissection. Pathology showed right breast with 4.2cm mass, 4 lymph nodes negative--ER/ND/Her2 unchanged. 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 No vision change. Ears, nose, [...] no additional complaints except as documented ONC PMFSH - General Attestation statement: The [...] November 2015 - Cardiac History Patient on Preparole Counseling Aide: No Does Patient Have Pacemaker?: No - Psych History Psychiatric history: anxiety, depression - STABLE CLEANER Hx : 1 Para: 1 STABLE CLEANER Comments: Has paraguard copper IUD does not have periods anymore--removedprior to chemotherapy - Family History Family History: CAD/MD, cancer, diabetes, hypertension - Genetics Would you [...] 7 Days 09/06/18 10:17: PHA Creatinine Clear 103.9215595739, Sodium 138, Potassium 3.7, Chloride 103, Carbon [...] % (Auto) 64.3, Lymph % (Auto) 11.8, Ponce % (Auto) 8.7, Eos % (Auto) 13.3, Baso % (Auto) 1.9, Neut # (Auto) 4.6, Lymph # (Auto) 0.9 L, Ponce # (Auto) 0.6, Eos # (Auto) 1.0 [...] Selvin Devine M.D.07/11/2018 5:12 PM Dictation Location: [place] [address] Any impression(s) listed above is documentation that [...] the remainder of chemotherapy and referral to CAR SALES CONSULTANT for possible I&D. She has stable mild fatigue. No issues with nausea/vomiting or diarrhea. Laboratories unremarkable. Reinforced neutropenic precautions. Mild crusting over new Utesab-y-Ilzm scar without erythema. Will follow closelywith continued [...] 100 mg daily and consider evaluation by CAR SALES CONSULTANT if persistent symptoms for possible I&D. Will [...] for coordination of care (as documented) and hjhd-an-hbxo counseling of patient and/or family. Dictated By: Tanya Washington MD DD/ 0943 Signed By: <Electronically signed by MD Tanya Washington> 09/07/18 5821 [facility] Work Phone: [phone] Progress note Author Judith Bhatt [facility] August 09, 2018 8:16pm Note Date/Time August 08, 2018 11 :02[facility] [place] [address] Genetics Follow Up Note Signed Patient: Maria M Mckeon MR#: [id number] : 1970 Acct:[id number] Age/Sex: 48 / F Type: REG RCR Copies to: Driss Mendoza Kim E MD Reese,Tanya DOVER~ Genetics Follow Up Note Narrative: History of Present Illness Maria M Mckeon is a 48-year-old female with a personal history of breast cancer.She was referred to the Cancer Genetics Clinic at [facility] by her physician, Dr. Guy. She was last seen on 07/11/18 and returns today, 08/08/17 with her sister to review the results of her genetic testing. 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 This means that her result is POSITIVE. Genetic testing was performed by [facility]. These genes include the following: BRCA1, BRCA2, [...] as a mutation) in a gene called SARBAJIT that places her at increased risk for [...] risk for pancreatic cancer, a referral to electric range servicer can be considered. PLAN: 1. Ms. Mckeon [...] contacting their local cancer center, going to [facility] and clicking on ?find a counselor?, or calling our office ([phone]). Family members are eligible for free testing with [employer] for 90 days after report date (08-07-18). [...] SARABJIT mutations. We are available at the [facility] at [phone] for questions or concerns about the information discussed at this appointment. Time Spent With Patient: 45 minutes of which 100 percent was spent counseling and or coordinating care. Dictated By: Judith Bhatt MD DD/ 1102 Signed By: <Electronically signed by Judith Bhatt MD> 08/09/182015 [facility] Work Phone: [phone] Progress note Author Tanya Washington [facility] August 04, 2018 9:21am Note Date/Time August 03, 2018 10 :13am [facility] [place] at [address] [address] Hem/Onc Follow Up Note - OP Signed Patient: Maria M Mckeon MR#: [id number] : 1970 Acct:[id number] Age/Sex: 48 / F Type: REG RCR [...] groin area that has traveled back to [facility]. Patient has used OTC antifungal. Patient also notes eyes have become red. - Diagnosis DIAGNOSIS: 1. Right upper outer quadrant [id number] (4.2 cm primary, 4 LN neg), moderately differentiated adenocarcinoma, ER 90%, ND 0%, Her2 not overexpressed --Sent Oncotype DX [...] has persistent mild fatigue and shereceived an Kvuycl-v-Dbne for further chemotherapy and lab draws. There [...] invasive mammary carcinoma, grade 2-3, ER 95%, ND 0%, Her2 negative. She did not see medical oncology or discuss breast conserving therapy or immediate reconstruction with her surgeon. On 05/07/2018, she underwent right modified radical mastectomy with axillary lymph node dissection (no attempt for sentinel lymph node) and left simple mastectomy with axillary dissection. Pathology showed right breast with 4.2cm mass, 4 lymph nodes negative--ER/ND/Her2 unchanged. No cancer in left breast or [...] no additional complaints except as documented ONC [facility] - General Attestation statement: The following information [...] November 2015 - Cardiac History Patient on Preparole Counseling Aide: No Does Patient Have Pacemaker?: No - Psych History Psychiatric history: anxiety, depression - STABLE CLEANER Hx : 1 Para: 1 STABLE CLEANER Comments: Has paraguard copper IUD does not have periods anymore--removedprior to chemotherapy - Family History Family History: CAD/MD, cancer, diabetes, hypertension - Genetics Would you [...] 7 Days 08/02/18 09:35: PHA Creatinine Clear 107.3773988128, Sodium 136, Potassium 4.0, Chloride 103, Carbon [...] % (Auto) 70.0, Lymph % (Auto) 12.1, Ponce % (Auto) 9.2, Eos % (Auto) 6.9, Baso % (Auto) 1.8, Neut # (Auto) 6.0, Lymph # (Auto) 1.0, Ponce # (Auto) 0.8, Eos # (Auto) 0.6 [...] Selvin Devine M.D.07/11/2018 5:12 PM Dictation Location: [facility] Any impression(s) listed above is documentation [...] for 1 week. Mild crusting over new Ehiovm-f-Lapi scar without erythema. Will follow closely with [...] for coordination of care (as documented) and ahye-bp-gknf counseling of patient and/or family. Dictated By: Tanya Washington MD DD/ 1012 Signed By: <Electronically signed by Tanya Washington MD> 08/04/18 0921 [facility] Work Phone: [phone] Consult note Author Judith Bhatt [facility] July 20, 2018 1:44pm Note Date/Time July 11, 2018 1:45pm [facility] [place] [address] Genetics Consult Note Signed Patient: Maria M Mckeon MR#: [id number] : 1970 Acct:[id number] Age/Sex: 48 / F Type: REG RCR Copies to: Driss Mendoza Kim E MD~ Genetics Consultation Note - Consult Note Narrative: HISTORY OF PRESENT ILLNESS: Ms. Maria M Mckeon is a 48-year old female with a personal history of early onset breast cancer diagnosed at 47 years of age. She was referred to the Cancer Genetics Clinic at [facility] by her physician, Dr. Tanya Washington. [...] 04/20/18 showed invasive ductal carcinoma, ER positive, ND negative, Her2 negative. On 05/07/18, she underwent [...] extramammary Pagets disease Ms. Mckeon is of Tajik, Spanish, Rwandan, Syrian, and Indian descent. There is no known Ashkenazi Congregation ancestry. Consanguinity was denied. OFC: 52 cm [...] Mckeon elected to undergo genetic testing using [facility] OvaNext panel, which looks at the following genes: [...] was drawn. The sample was sent to [facility] for analysis. Results are typically available in 3-4 weeks. 2. Ms. Mckeon will return to the Cancer Genetics Clinic in approximately four weeks to discuss her test results. 3. We remain available to Ms. Mckeon or her family members at [phone] if any questions arise regarding information discussed at today's visit. Viki Gonsalez MS Licensed Genetic Counselor [facility] Judith Bhatt MD Clinical Police Matron Departments of Genetics and Genome Sciences and Pediatrics [facility] PHYSICIAN STATEMENT OF TIME: I spent 10 minutes with this patient and >50% was spent on counseling and coordination of care. Dictated By: Viki Gonsalez DD/ 1345 Signed By: <Electronically signed by Viki Gonsalez> 07/20/18 1154 <Electronically signed by Judith Bhatt MD> 07/20/18 1344 [facility] Work Phone: [phone] 446-901012-14-2018 Progress note Author Dalia Koch [facility] July 13, 2018 10:50am Note Date/Time July 13, 2018 10:35am [facility] at [place] [id number] Hem/Onc Follow Up Note - OP Signed Patient: Maria M Mckeon MR#: [id number] : 1970 Acct:[id number] Age/Sex: 48 / F Type: REG RCR Copies to: Driss Menodza Kim E MD~ Subjective Date/Time of Service: [...] LN neg), moderately differentiated adenocarcinoma, ER 90%, ND 0%, Her2 not overexpressed --Sent Oncotype DX [...] she is now interested in receiving an Anshui-q-Clbb for further chemotherapy and lab draws. PREVIOUS HISTORY: This is a 48 year old lady who found a large mass in her right upper outer quadrant breast in March. She was immediately referred for mammogram and ultrasound and subsequent US guided needle biopsy 04/20/2018 of clinical 5 cmmass at 10 o'clock--this revealed an invasive mammary carcinoma, grade 2-3, ER 95%, ND 0%, Her2 negative. She did not see medical oncology or discuss breast conserving therapy or immediate reconstruction with her surgeon. On 05/07/2018, she underwent right modified radical mastectomy with axillary lymph node dissection (no attempt for sentinel lymph node) and left simple mastectomy with axillary dissection. Pathology showed right breast with 4.2cm mass, 4 lymph nodes negative--ER/ND/Her2 unchanged. No cancer in left breast or [...] nodes Allergic/Immunologic: no reaction to drugs ONC PMFSH - General Attestation statement: The [...] November 2015 - Cardiac History Patient on Preparole Counseling Aide: No Does Patient Have Pacemaker?: No - Psych History Psychiatric history: anxiety, depression - STABLE CLEANER Hx : 1 Para: 1 STABLE CLEANER Comments: Has paraguard copper IUD does not have periods anymore - Family History Family History: CAD/MD, cancer, diabetes, hypertension - Genetics Would you [...] Vital Signs Vital Signs: Temp 98.9 F 12/14/18 09:41 Pulse 78 07/13/18 09:41 Resp 16 [...] Most Recent CBC and CMP 07/13/18 08:32 07/13/18 08:32 Labs - Last 7 Days 07/13/18 08:32: PHA Creatinine Clear 94.4198068820, Sodium 133 L, Potassium 3.7, Chloride 99, [...] Appearance Clear, Urine pH 5.5, Ur Specific Nahma 1.028, Urine Protein Negative, Urine Glucose (UA) [...] Selvin Devine M.D.07/11/2018 5:12 PM Dictation Location: [facility] Any impression(s) listed above is documentation that [...] She is now interested in receiving a Htfqdq-t-Selg for further chemotherapy infusions and lab draws. [...] for coordination of care (as documented) and koir-mv-xxwf counseling of patient and/or family. Dictated By: Dalia Koch DD/ 1030 Signed By: <Electronically signed by Dalia Koch> 07/13/18 1050 [facility] Work Phone: [phone] Progress note Author Tanya Washington [facility] June 28, 2018 8:55am Note Date/Time June 28, 2018 8:32am [facility] at [address] [address] Hem/Onc Follow Up Note - OP Signed Patient: Maria M Mckeon MR#: [id number] : 1970 Acct:[id number] Age/Sex: 48 / F Type: REG RCR [...] LN neg), moderately differentiated adenocarcinoma, ER 90%, ND 0%, Her2 not overexpressed --Sent Oncotype DX [...] invasive mammary carcinoma, grade 2-3, ER 95%, ND 0%, Her2 negative. She did not see medical oncology or discuss breast conserving therapy or immediate reconstruction with her surgeon. On 05/07/2018, she underwent right modified radical mastectomy with axillary lymph node dissection (no attempt for sentinel lymph node) and left simple mastectomy with axillary dissection. Pathology showed right breast with 4.2cm mass, 4 lymph nodes negative--ER/ND/Her2 unchanged. No cancer in left breast or [...] ovarian cancer. The patient is followed by [facility] dermatology due to recurrent squamous cell skin [...] November 2015 - Cardiac History Patient on Preparole Counseling Aide: No Does Patient Have Pacemaker?: No - Psych History Psychiatric history: anxiety, depression - STABLE CLEANER Hx : 1 Para: 1 STABLE CLEANER Comments: Has paraguard copper IUD does not have periods anymore - Family History Family History: CAD/MD, cancer, diabetes, hypertension - Genetics Would you [...] for coordination of care (as documented) and otse-aa-alrk counseling of patient and/or family. Dictated By: Tanya Washington MD DD/ 0 Signed By: <Electronically signed by Tanya Washington MD> 06/28/18 0855 [facility] Work Phone: [phone] Consult note Author Tanya Washington [facility] June 09, 2018 8:53am Note Date/Time June 08, 2018 9 :48am [facility] [place] [id number] Hem/Onc Consult Note - OP Signed Patient: Maria M Mckeon MR#: [id number] : 1970 Acct:[id number] Age/Sex: 47 / F Type: REG RCR [...] an invasive mammary carcinoma, grade 2-3,ER 95%, ND 0%, Her2 negative. She did not see medical oncology or discuss breast conserving therapy or immediate reconstruction with her surgeon. On 05/07/2018, she underwent right modified radical mastectomy with axillary lymph node dissection (no attempt for sentinel lymph node) and left simple mastectomy with axillary dissection. Pathology showed right breast with 4.2cm mass, 4 lymph nodes negative--ER/ND/Her2 unchanged. No cancer in left breast or [...] ovarian cancer. The patient is followed by [facility] dermatology due to recurrent squamous cell skin cancers andhas had genetic testing for this, but not for predisposition to breast cancer. ONC [facility] - General Attestation statement: The following information [...] Psych History Psychiatric history: anxiety, depression - STABLE CLEANER Hx : 1 Para: 1 STABLE CLEANER Comments: Has paraguard copper IUD does not have periods anymore - Family History Family History: CAD/MD, cancer, diabetes, hypertension - Genetics Would you [...] LN neg), moderately differentiated adenocarcinoma, ER 90%, ND 0%, Her2 not overexpressed 2. Bilateral mastectomy [...] for coordination of care (as documented) and vgnh-oa-lcwb counseling of patient and/or family. Greater than 35 minutes Dictated By: Tanya Washington MD DD/ 0948 Signed By: <Electronically signed by Tanya Washington MD> 06/09/18 0853 [facility] Work Phone: Evaluation noteNo [employer]BC[employer] Other Evaluation note* Diagnosis Onset Date Resolution [...] r esolved Mass of left axilla resolved [facility] Work Phone: Evaluation noteNo assessment information available [facility] Work Phone: History general Narrative - Reported* [...] History double mastectomy Hospitalization History see above [employer] Other Histjwx general Narrative - Reported* Type Description Date [...] History double mastectomy Hospitalization History see above [employer] Other Hisfhwp general Narrative - Reported* Type Description Date [...] History double mastectomy Hospitalization History see above [employer] Other Hisfqbs general Narrative - Reported* Type Description Date [...] History double mastectomy Hospitalization History see above [employer] Other Hospital course Narrative No data available for this section [facility] No data available for this section [facility] No data available for this section [facility] Summary Purpose Family History No Family History [...] section and content) DATE CREATED AUTHOR 12/20/2018 [facility] DATE CREATED AUTHOR AUTHOR'S ORGANIZ ATION 12/14/2022 [facility] DATE CREATED AUTHOR AUTHOR'S ORGANIZ ATION 06/12/2023 [facility] EPIC DATE CREATED AUTHOR AUTHOR'S ORGANIZ ATION 10/22/2023 [facility] DATE CREATED AUTHOR AUTHOR'S ORGANIZ ATION 10/30/2023 Jann Rahman [facility] REASON FOR VISIT (unrecogniz ed section and [...] Primary Care Provider Active Ze Larose , [facility] Attending Provider Active Team Status: Active Member [...] BE BASED ON THE PRIMARY CLINICAL RECORDS. [employer] provides no warranty or guarantee of the accuracy or completeness of information in this document.
[2023-10-31 07:40] VITALS: BP 136/82; PULSE 73; TEMP 36.7; O2SAT 97; BMI 36.4
--- NOTE | 2023-10-31 07:44 | XR_ITS ---
The [address] [address] Patient Name: MARIA M MCKEON MRN: [id number] date: 1970 Sex: F Assigned Patient Location: ER Current Patient Location: ER Accession/Order Number: [id number] Exam Date: 10/31/2023 08:00 Report Date: 10/31/2023 08:28 At the request of: RANI DRAKE Procedure: XR hand RT min 3V PROCEDURE: XR hand RT min 3V HISTORY: Rule out foreign body, glass, right finger pad COMPARISON: None. FINDINGS: BONES:No fracture, acute abnormality, or significant arthropathy. SOFT TISSUES:No visible soft tissue swelling. EFFUSION:None visible. OTHER: Negative. XR/XR hand RT min 3V IMPRESSION: 1. No radiopaque foreign body. Electronically authenticated by: TABITHA GREENE Date: 10/31/2023 08:28
--- NOTE | 2023-10-31 07:51 | ED.UPPEXIN1 ---
HPI HPI - Extremity Injury (Upper) General Chief Complaint: Extremity Injury, Upper Stated Complaint: UPPER EXTREMITY PAIN Time Seen by Provider: 10/31/23 07:38 Source: patient Mode of arrival: ambulance Limitations: no limitations History of Present Illness HPI narrative: 53-year-old female presents for wound to right index finger. She was adjusting a white board that was flickering and the light bulb broke and it caused an avulsion of skin at the finger pad of her right index finger. Its gotten a bit swollen and her other fingers feel swollen so she came in to get checked. It has been a long time since her last tetanus shot, she does not recall when. She has been on an antibiotic, doxycycline, because of some left arm cellulitis and that issue is resolving and she has been on the doxycycline for 3 days. No purulent drainage. Related Data Home Medications ?Medication ?Instructions ?Recorded ?Confirmed amlodipine 10 mg tablet 10 mg PO DAILY 05/13/23 10/31/23 atorvastatin 20 mg tablet 20 mg PO QPM 05/13/23 10/31/23 citalopram 20 mg tablet 20 mg PO DAILY 05/13/23 10/31/23 dapagliflozin propanediol 5 mg 5 mg PO DAILY 05/13/23 10/31/23 tablet (Farxiga) gabapentin 300 mg capsule 300 mg PO TID 05/13/23 10/31/23 glipizide 5 mg tablet 5 mg PO DAILY 05/13/23 10/31/23 losartan 100 1 tab PO DAILY 05/13/23 10/31/23 mg-hydrochlorothiazide 25 mg tablet oxaprozin 600 mg tablet 600 mg PO BID 05/13/23 10/31/23 tamoxifen 20 mg tablet 20 mg PO QPM 05/13/23 10/31/23 tizanidine 4 mg tablet 4 mg PO QPM 05/13/23 10/31/23 triamterene 37.5 1 cap PO DAILY 05/13/23 10/31/23 mg-hydrochlorothiazide 25 mg capsule Previous Rx's ?Medication ?Instructions ?Recorded levofloxacin 500 mg tablet 500 mg PO DAILY 7 days #7 tabs 05/14/23 doxycycline monohydrate 100 mg 100 mg PO BID #20 caps 10/28/23 capsule amoxicillin 875 mg-potassium 1 tab PO BID #14 tabs 10/31/23 clavulanate 125 mg tablet Allergies Allergy/AdvReac Type Severity Reaction Status Date / Time acetaminophen [From Percocet] Allergy Severe Verified 10/31/23 07:40 homatropine [From Hycodan] Allergy Severe Verified 10/31/23 07:40 hydrocodone [From Hycodan] Allergy Severe Verified 10/31/23 07:40 naproxen [From Aleve] Allergy Severe Verified 10/31/23 07:40 oxycodone [From Percocet] Allergy Severe Verified 10/31/23 07:40 Sulfa (Sulfonamide Allergy Severe Verified 10/31/23 07:40 Antibiotics) Penicillins Allergy Mild Verified 10/31/23 07:40 Opioid HPI Opioid Management Most Recent Pain and Opioid Data: Last Pain Scale 2 05/13/23 17:47 Review of Systems ROS Narrative A ten point review of systems is negative except as noted above. [facility] Medical History (Updated 10/31/23 @ 08:41 by Evangelist Allison MD) Hyperlipidemia ?E78.5 - Hyperlipidemia, unspecified (ICD-10) Depression ?F32.A - Depression, unspecified (ICD-10) Hypertension ?I10 - Essential (primary) hypertension (ICD-10) Non-insulin dependent type 2 diabetes mellitus ?E11.9 - Type 2 diabetes mellitus without complications (ICD-10) Acquired lymphedema ?I89.0 - Lymphedema, not elsewhere classified (ICD-10) Breast cancer ?C50.919 - Malignant neoplasm of unspecified site of unspecified female breast (ICD-10) Diabetes ?E11.9 - Type 2 diabetes mellitus without complications (ICD-10) Surgical History History of mastectomy ?Z90.10 - Acquired absence of unspecified breast and nipple (ICD-10) Family History Mother Family history of cancer Father Family history of diabetes mellitus Other Family history of myocardial infarction Social History Within the past year, how often did you have a drink containing alcohol: 2-4 times a month Within the past year, how many standard drinks containing alcohol did you have on a typical day: 1 or 2 Within the past year, how often did you have six or more drinks on one occasion: never Total score: 0 Score interpretation: A score less than 3 is consistent with normal alcohol consumption. 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 General: The patient appears well and in no apparent distress. Patient is resting comfortably on cart. Skin: Warm, dry, no pallor noted. There is no rash noted. Head: Normocephalic, atraumatic Eye: Normal conjunctiva, no drainage Ears, Nose, Mouth, and Throat: oral mucosa is moist. Nares patent. Cardiovascular: Regular Rate and Rhythm Respiratory: Patient is in no distress, no accessory muscle use, lungs are clear to auscultation, no wheezing, rales or rhonchi Back: non-tender GI: Soft and Musculoskeletal: Right index finger distally has a small skin avulsion. There is no purulent drainage or lymphangitis. I do not appreciate swelling in her other fingers. Also on the right hand she has what appears to be chronic skin condition consistent with eczema. Neurological: A&O, normal speech Psychiatric: Cooperative Constitutional Vital Signs, click to edit/add: Last Vital Signs Temp 98.0 F 10/31/23 07:40 Pulse 73 10/31/23 07:40 Resp 16 10/31/23 07:40 BP 136/82 10/31/23 07:40 Pulse Ox 97 10/31/23 07:40 O2 Del Method Room Air 10/31/23 07:40 Course Vital Signs Vital signs: Vital Signs Temperature 98.0 F 10/31/23 07:40 Pulse Rate 73 10/31/23 07:40 Respiratory Rate 16 10/31/23 07:40 Blood Pressure 136/82 10/31/23 07:40 Pulse Oximetry 97 10/31/23 07:40 Oxygen Delivery Method Room Air 10/31/23 07:40 Temperature 98.0 F 10/31/23 07:40 Pulse Rate 73 10/31/23 07:40 Respiratory Rate 16 10/31/23 07:40 Blood Pressure 136/82 10/31/23 07:40 Pulse Oximetry 97 10/31/23 07:40 Oxygen Delivery Method Room Air 10/31/23 07:40 MDM - Extremity Injury (Upper) MDM Narrative Medical decision making narrative: X-ray shows no foreign body. Tetanus status is updated and she is prescribed Augmentin. She has taken Augmentin in the past and had no problem with it. Treatment diagnosis and follow-up were discussed with the patient Differential Diagnosis Differential diagnosis: Likely other (Skin avulsion, foreign body) Imaging Data Hand x-ray: Radiologist's impression: ITS Impressions Hand X-Ray 10/31/23 07:44 IMPRESSION: 1. No radiopaque foreign body. Electronically authenticated by: TABITHA GREENE Date: 10/31/2023 08:28 Discharge Plan Discharge Stand Alone Forms: Portal Instructions Chief Complaint: Extremity Injury, Upper Clinical Impression: Avulsion of skin of finger Patient Disposition: Home, Self-Care Time of Disposition Decision: 08:41 Condition: Good Mode of Transportation: Private Vehicle Prescriptions / Home Meds: New amoxicillin-pot clavulanate 875-125 mg tablet 1 tab PO BID Qty: 14 0RF No Action amlodipine 10 mg tablet 10 mg PO DAILY atorvastatin 20 mg tablet 20 mg PO QPM citalopram 20 mg tablet 20 mg PO DAILY dapagliflozin propanediol [Farxiga] 5 mg tablet 5 mg PO DAILY gabapentin 300 mg capsule 300 mg PO TID glipizide 5 mg tablet 5 mg PO DAILY losartan-hydrochlorothiazide 100-25 mg tablet 1 tab PO DAILY oxaprozin 600 mg tablet 600 mg PO BID tamoxifen 20 mg tablet 20 mg PO QPM triamterene-hydrochlorothiazid 37.5-25 mg capsule 1 cap PO DAILY tizanidine 4 mg tablet 4 mg PO QPM levofloxacin 500 mg tablet 500 mg PO DAILY 7 Days Qty: 7 0RF doxycycline monohydrate 100 mg capsule 100 mg PO BID Qty: 20 0RF Print Language: Albanian Instructions: Finger Laceration (ED), Acute Wounds (ED) Referrals: ARMIN FRITZ [Primary Care Provider] - 1 week
[2023-10-31] MEDS: ADACEL DIPH,PERTUSS(ACELL),TET VAC/PF 0.5 ML ADULT SYRINGE IM (07:54)
[2023-10-31 08:45] VITALS: BP 144/86; PULSE 98; O2SAT 98
== END 2023-10-31 08:48 | disposition home or self-care (01) ==
PROVIDERS: Emergency Provider Emergency Medicine; PCP Family Medicine
DX: S61.200A Unspecified open wound of right index finger without damage to nail, initial encounter (principal); W26.8XXA Contact with other sharp object(s), not elsewhere classified, initial encounter; Z79.899 Other long term (current) drug therapy; E78.5 Hyperlipidemia, unspecified; F32.A Depression, unspecified; I10 Essential (primary) hypertension; E11.9 Type 2 diabetes mellitus without complications; Z85.3 Personal history of malignant neoplasm of breast; Z90.10 Acquired absence of unspecified breast and nipple; Z23 Encounter for immunization
CPT/HCPCS: 73130; 90471; 90715; 99284

== ENCOUNTER 2023-11-15 14:36 | Outpatient (OUT) | payer OTHER, SELFPAY ==
[2023-11-15 15:37] LABS: Free T4 1.06 ng/dL (0.76-1.46)
[2023-11-15 15:46] LABS: Free T3 2.62 pg/mL (2.18-3.98); Thyroid Stimulating Hormone 1.582 uIU/mL (0.358-3.740)
[2023-11-16 13:11] LABS: Triiodothyronine (T3) 161 ng/dL (71-180)
== END 2023-11-15 14:37 | disposition home or self-care (01) ==
LOC: LAB 14:37
PROVIDERS: PCP Family Medicine; Visit Provider Family Medicine
DX: E06.3 Autoimmune thyroiditis (principal); R53.82 Chronic fatigue, unspecified; E07.81 Sick-euthyroid syndrome
CPT/HCPCS: 36415; 84439; 84443; 84480; 84481; 84482

== ENCOUNTER 2023-12-08 17:28 | Emergency (ER) | payer OTHER, SELFPAY ==
[2023-12-08 17:32] VITALS: BP 106/73; PULSE 92; TEMP 36.7; O2SAT 97; BMI 36.4
--- NOTE | 2023-12-08 17:51 | CT_ITS ---
[facility] [address] [place], [place] [address] Patient Name: MARIA M MCKEON MRN: [id number] date: 1970 Sex: F Assigned Patient Location: ER Current Patient Location: ED.MAIN Accession/Order Number: [id number] Exam Date: 12/08/2023 18:22 Report Date: 12/08/2023 19:49 At the request of: DANIEL AGOSTO Procedure: CT abdomen pelvis w con EXAM: CT abdomen pelvis w con HISTORY: left lower quadrant pain, left upper quadrant pain. Recent diagnosis of diverticulitis. COMPARISON: CT scan without contrast 05/13/2023, CT with contrast 05/28/2021. TECHNIQUE: CT abdomen pelvis with contrast. 98 mL Omnipaque 300 IV. Axial scans with reformatted coronal sagittal images. Individualized dose reduction used for this exam. FINDINGS: Lower chest: Lung bases clear without focal lesion or infiltrate. No acute process. No pleural effusion. ABDOMEN: Low-attenuation liver consistent with fatty infiltration without focal mass. Small amount of fluid in the gallbladder without calcified stone. No biliary dilatation. Adrenal glands, pancreas, spleen unremarkable. Small splenule anteriorly. No ascites or free fluid. No increasing adenopathy. Normal enhancement aorta and branches. Normal renal enhancement without mass or hydronephrosis. Normal ureters. No bowel distention wall thickening or edema. Colonic diverticulosis most prominent pelvic colon without adjacent fluid or inflammation or acute diverticulitis. Projects the pelvis actually extend medial to the left of midline contains a large amount of stool. No adjacent fluid or inflammation. Small tubular structure projecting from the cecum is felt to be a normal appendix. Opaque density projects in the small bowel at the L3 level without bowel dilatation. Large amount stool throughout the colon with moderate rectal distention. Pelvis: No mass or adenopathy or free fluid. Diverticulosis without diverticulitis. Small amount of fluid in the bladder. No uterine or adnexal abnormality. MUSCULOSKELETAL: No suspicious bone lesion or fracture. CT/CT abdomen pelvis w con IMPRESSION: No acute abdominal or pelvic pathology. Colonic diverticulosis without diverticulitis. Large amount stool throughout the colon with moderate rectal distention. Electronically authenticated by: PIETRO REGALADO Date: 12/08/2023 19:49
--- OUTSIDE RECORDS SUMMARY | 2023-12-08 17:54 | XMS_ITS | CCD ---
Author Organization [facility] Care Team Providers Care Blockmason Name Role Phone Nadeem Dorantes Unavailable Corey Grider Unavailable Cindy Goetz Unavailable Joe Mei Unavailable Adriana Georges Unavailable PAY ., DR SANCHEZ Attending Unavailable PAY ., DR SANCHEZ Consulting Unavailable PAY ., DR SANCHEZ Admitting Unavailable CHRISTIANSON ., DR ALBERT Darling Primary Care Unavailable BETO CABRERA Consulting Unavailable GRECHNY .TERRENCE Consulting Unavailgeoff e CHRISTIANSON ., DR ALBERT Darling Primary [...] CHRISTIANSON ., DR ALBERT Darling Attending Unavailable CHRISTIANSNO ., DR ALBERT Darling Consulting Unavailable CHRISTIANSON ., DR ALBERT Darling Primary Care Unavailable HEMEYER ., DR CHÁVEZ Consulting Unavailable HEMEYER ., DR CHÁVEZ Admitting Unavailable CHRISTIANSON ., DR ALBERT Darling Primary Care Unavailable HEMEYER ., DR CHÁVEZ Attending Unavailable FELIX, DR TANYA Dumont Consulting Unavailable CHRISTIANSON ., DR ALBERT Darling Admitting Unavailable CHRISTIANSON ., DR ALBERT Darling Attending Unavailable CHRISTIANSON ., DR ALBERT Darling Primary Care Unavailable Leti Bowen Unavailable Renu Chris Unavailable Jannet Chatman Unavailable MD Albert Christianson Primary Care Provider MD Tanya Washington Attending Provider DO Driss Ornelas Referring Provider MD Albert Christianson Primary Care Provider DO Ze Larose Attending Provider SAIRA DHALIWAL Attending Unavailable Brown, Jessica Aquino Primary Care Physician MD Albert Christianson Primary Care Provider MD Paulino Clemens Attending Provider MD Tanya Washington Attending Provider Brown, Jessica L Attending Unavailable Brown, Jessica L Attending Unavailable Brown, Jessica L Attending Unavailable Brown, Jessica L Attending Unavailable Brown, Jessica L Attending Unavailable Brown, Jessica L Attending Unavailable Brown, Jessica L Attending Unavailable Brown, Jessica L Admitting Unavailable Brown, Jessica Aquino Attending Unavailable Brown, Jessica L Admitting Unavailable Brown, Jessica Aquino Attending Unavailable Brown, Jessica Aquino Admitting Unavailable CHRISTIANSONALBERT Attending Unavailable Brown, Jessica Aquino Attending Unavailable ChristiansonAlbert Primary Care Unavailable Paulino Clemens Admitting Unavailable Sarath, Paulino Attending Unavailable NON STAFF Primary Care Unavailable Tanya Washington Admitting Unavailable Felix, Tanya Attending Unavailable Albert Christianson Primary Care Unavailable Driss Ornelas Referring Unavailable Felix, Tanya Admitting Unavailable FelixTanya gambino Attending Unavailable Albert Christianson [facility] Ad[facility] Un[facility] Ze Garcai Attending Unavailable Albert Christianson Primary Care Unavailable Corey Grider Unavailable Obermeyer, Jessica Aquino Admitting Unavailable Obermeyer, Jessica Aquino Attending Unavailable Allergies Allergy Classification Reported Allergen(s) Allergy Type Date of Onset Reaction(s) Facility (14 sources) Ciprofloxacin; Translations: [ciprofloxacin] Drug Allergy 03-13-20 23 [facility] (1 source) Penicillins (Antibiotic) Drug allergy itching [facility] Other (11 sources) Sulfonamides (Antibiotic) Drug allergy hives and swelling [facility] Other (15 sources) Acetaminophen / HYDROcodone; Translations: [Vicodin] Drug Allergy Vomiting (disorder) [facility] (12 sources) Acetaminophen / oxyCODONE; Translations: [acetaminophen-ox ycodone] Drug Allergy Vomiting (disorder) [facility] (2 sources) Acetaminophen / oxyCODONE Drug Allergy [facility] (1 source) Cetirizine Drug Allergy [facility] (1 source) Loratadine Drug Allergy [facility] (3 sources) Penicillins; Translations: [penicillins] Drug allergy (disorder) 12-21-19 13 [facility] (3 sources) Sulfamethoxazole; Translations: [sulfamethoxazole ] Drug Allergy 12-21-19 13 [facility] (1 source) Sulfonamides (Antibiotic) Drug allergy (disorder) [facility] (5 sources) Sulfonamides (Antibiotic); Translations: [Sulfa (Sulfonamide Antibiotics)] Allergy to substance 05-18-20 Hives, Hives, hives and swelling [facility] (3 sources) Latex; Translations: [Latex] Drug allergy [facility] (3 sources) NITROFURANTOIN, MACROCRYSTALS / Nitrofurantoin, Monohydrate; Translations: [nitrofurantoin] Drug Allergy Unknown (qualifier value) [facility] (2 sources) Sulfamethoxazole; Translations: [sulfamethoxazole ] Drug Allergy Cutaneous eruption (morphologic abnormality) [facility] (3 sources) Acetaminophen; Translations: [acetaminophen] Drug Allergy 03-13-20 Unknown Reaction [facility] (3 sources) HYDROcodone; Translations: [hydrocodone] Drug Allergy 03-13-20 Unknown Reaction [facility] (3 sources) oxyCODONE; Translations: [oxycodone] Drug Allergy 03-13-20 Unknown Reaction [facility] (1 source) Acetaminophen / oxyCODONE; Translations: [Percocet 10/325] Drug Allergy [facility] (1 source) corn extract; Translations: [Macon] Drug Allergy [facility] (1 source) Wheat preparation; Translations: [Wheat] Drug Allergy [facility] (1 source) SUGAR; Translations: [SUGAR] Food allergy (disorder) [facility] (1 source) Milk Products; Translations: [Milk Products] Food allergy (disorder) [facility] Medications Current Medications Medication Drug Class(es) Dates Sig (Normalized) Sig (Original) 0.25 MG, 0.5 MG Dose 3 ML semaglutide 0.68 MG/ML Pen Injector [Ozempic] (1 source) Start: 09-20-2023 inject 0.5 mg by subcutaneous injection every week Ozempic 2 mg/3 mL (0.25 mg or 0.5 mg dose) subcutaneous solution 0.5 mg, SubCutaneous, qWeek, # 1 EA, Refills(s) 2, Pharmacy: [facility], 157.5, cm, 09/12/23 8:34:00 EST, Height/Length Dosing, 92.4, kg, 09/12/23 8:34:00 EST, Weight Dosing Start Date: 09/20/23 Status: Ordered [id number] 200 actuat albuterol 0.09 mg/actuat metered dose inhaler (11 sources) beta2-Adrenergic Agonist Start: 07-13-2021 take 2 puff(s) by inhalation every four hours as needed Start: 07-13-2021 take 2 puff(s) by inhalation e very four hours as needed amLODIPine 10 mg oral tablet (16 sources) Dihydropyridine Calcium Channel Florina Start: 12-11-2019 take 10 mg by mouth once daily Amlodipine Active 10 MG PO Daily December 11, 2019 12:00am Amlodipine & Diet Manage Prod (1 source) Amlodipine & t Manage Prod Active atorvastatin 20 mg oral tablet (5 sources) HMG-CoA Reductase Inhibitor Start: 11-26-2023 Atorvastatin Active MG PO November 26, 2023 12:00am Start: 06-06-2023 take 1 tablet by doris th once daily atorvastatin 20 mg Tab 20 mg = 1 tab(s), Oral, Daily, # 90 tab(s), Refills(s) 3, Pharmacy: [facility], 157.5, cm, 05/22/23 9:15:00 EDT, [...] day(s), # 14 tab(s), Refills(s) 0, Pharmacy: [facility] #[id number], 157.5, cm, 06/19/23 9:21:00 EST, Height/Length Dosing, 92.6, kg, 06/19/23 9:21:00 EST, Weight Dosing Start Date: 06/19/23 Stop Date: 06/26/23 Status: Ordered citalopram 20 mg oral tablet (17 sources) Serotonin Reuptake Inhibitor Start: 09-12-2019 take 1 tablet by mouth once daily Citalopram (Celexa) 20 mg Tablet Active 20 MG PO Daily September 12, 2019 1:00am CeleXA Active dalbavancin 500 mg injection (4 sources) Lipoglycopeptide Antibacterial Start: 11-05-2021 take 1500 mg intravenously once Dalvance 500 MG 1500 mg IV Intravenous Once for 1 days Oct, Active gabapentin 300 mg oral capsule (20 sources) Anti-epileptic Agent Start: 11-10-2023 Gabapentin Active 0 .ROUTE .COMPLEX 270 November 10, 2023 11:14am TAKE 1 CAPSULE THREE TIMES A DAY Start: 05-16-2019 End: 11-10-2023 take 300 mg by mouth three times daily Gabapentin Discontinued 300 MG PO Three times daily 270 90 September 26, 2022 9:20am November 10, 2023 11:14am Start: 03-27-2019 End: 05-16-2019 Gabapentin Discontinued 0 .R OUTE .COMPLEX 200 March 27, 2019 12:00am May 16, 2019 8:28am Take 100 mg PO at bedtime x 1 day, then BID x 3 days, then TID x 7 days, then take 200 mg PO TID x 7 days, then take 300 mg PO TID Gabapentin Activ e glipiZIDE 5 mg oral tablet (17 sources) Sulfonylurea Start: 09-12-2023 take 1 tablet by mouth once daily glipiZIDE 5 mg Tab 5 mg = 1 tab(s), Oral, Daily, # 90 tab(s), Refills(s) 3, Pharmacy: [facility], 157.5, cm, 09/12/23 8:34:00 EST, Height/Length Dosing, 92.4, kg, 09/12/23 8:34:00 EST, Weight Dosing Start Date: 09/12/23 Status: Ordered Start: 12-13-2022 take 1 tablet by doris th once daily glipiZIDE 5 mg Tab 5 mg = 1 tab(s), Oral, Daily, # 90 tab(s), Refills(s) 3, Pharmacy: [facility], 157.5, cm, 12/13/22 15:39:00 EDT, Height/Length Dosing, 93.9, kg, 12/13/22 15:39:00 EDT, Weight Dosing Start Date: 12/13/22 Status: Ordered Start: 04-28-2021 take 10 mg by mouth once daily Glipizide Active 10 MG PO Daily April 28, 2021 12:00am glipiZIDE Active hydroCHLOROthiazide 25 mg / losartan potassium 100 mg oral tablet (16 sources) Thiazide Diuretic, Angiotensin 2 Receptor Florina [...] directed Orally for 6 days Jun, Active nitrofurantoin, macrocrystals 25 mg / nitrofurantoin, monohydrate 75 mg oral capsule (5 sources) Nitrofuran Antibacterial Start: 11-26-2023 take 1 capsule by mouth twice daily at mealtime Nitrofurantoin Monohyd/M-Cryst (Macrobid) 100 mg capsule Active 100 MG PO Twice daily 10 November 26, 2023 12:00am must administer with a meal/food Start: 12-11-2019 End: 07-08-2020 take 1 capsule by mouth twice daily Nitrofurantoin Monohyd/M-Cryst (Macrobid) 100 mg Capsule Discontinued 100 MG PO Twice daily December 11, 2019 12:00am July 08, 2020 3:48pm MIXING MACHINE OPERATOR Thyroid (1 source) MIXING MACHINE OPERATOR Thyroid Activ e oxaprozin 600 mg oral tablet (6 sources) Nonsteroidal Anti-inflammatory Drug Start: 05-18-2023 take 600 mg by mouth once daily Oxaprozin Active 600 MG PO Daily May 18, 2023 12:00am Start: 05-15-2023 take 1 tablet by doris th twice daily oxaprozin 600 mg Tab 600 mg = 1 tab(s), Oral, BID, Refills(s) 0 Start Date: 05/15/23 Status: Ordered phenazopyridine hydrochloride 200 mg oral tablet (10 sources) Start: 11-26-2023 take 1 tablet by mouth every eight hours Phenazopyridine (Pyridium) 200 mg tablet Active 200 MG PO Every 8 hours 6 November 26, 2023 12:00am Start: 05-12-2022 take 1 tablet by doris th every eight hours Pyridium 200 MG 1 tablet after meals Orally Three times a day for 2 day(s) Apr, Not-Taking Start: 11-09-2018 End: 09-12-2019 take 100 mg by mouth three times daily Phenazopyridine Discontinued 100 MG PO Three times daily November 09, 2018 10:29am September 12, 2019 4:42pm Thyroid (Pork) (Nature-Throid) 65 mg Tablet (4 sources) Start: 03-11-2020 take 1 tablet by mouth twice daily Thyroid (Pork) (Nature-Throid) 65 mg Tablet Active 65 MG PO Twice daily March 11, 2020 12:00am thyroid (SNF) (12 sources) Start: 03-11-2020 Natural Thyroi d Natural Thyroid, 45mcg tablet BID Start Date: 03/11/20 Status: Ordered take 1 tablet by mouth every twe lve hours MIXING MACHINE OPERATOR Thyroid 60 MG 1 tablet on an empty stomach Orally bid Active tiZANidine 4 mg oral tablet (7 sources) Central alpha-2 Adrenergic Agonist Start: 11-26-2023 Tizanidine Active MG PO November 26, 2023 12:00am Start: 12-13-2022 take 1 capsule by mo uth once daily tizanidine 4 mg oral capsule 4 mg = 1 cap(s), Oral, Daily, Refills(s) 0 Start Date: 12/13/22 Status: Ordered tiZANidine HCl 4 MG 1 tablet Orally at night Active Triamterene (1 source) Potassium-sparing Diuretic Triam terene Active Completed/Discontinued Medications Medication Drug Class(es) Dates Sig (Normalized) Sig (Original) acitretin 10 mg oral capsule (4 sources) Retinoid Start: 01-24-2018 End: 08-03-2018 take 10 mg by mouth once daily Acitretin Discontinued 10 MG PO Daily January 24, 2018 12:00am August 03, 2018 11:26am 0.8 ml adalimumab 50 mg/ml prefilled syringe (4 sources) Tumor Necrosis Factor Florina Start: 11-23-2020 End: 04-28-2021 inject 40 mg by subcutaneous injection every week Adalimumab (Humira) 40 mg/0.8 mL Syringe Kit Discontinued 40 MG SUBCUT every week November 23, 2020 12:00am April 28, 2021 9:40am amoxicillin 875 mg / clavulanate 125 mg oral tablet (4 sources) Penicillin-class Antibacterial Start: 07-11-2018 End: 08-03-2018 take 1 tablet by mouth every twelve hours Amoxicillin-Pot Clavulanate (Augmentin) 875-125 mg Tablet Discontinued 1 TAB PO Q12H 20 July 11, 2018 1:00am August 03, 2018 11:02am cefuroxime 500 mg oral tablet (4 sources) Cephalosporin Antibacterial Start: 07-08-2020 End: 04-28-2021 take 500 mg by mouth twice daily Cefuroxime Axetil Discontinued 500 MG PO Twice daily July 08, 2020 1:00am April 28, 2021 9:41am cephalexin 500 mg oral capsule (19 sources) Cephalosporin Antibacterial Start: 05-12-2022 take 1 [...] 2018 12:02am take 2 capsules by m out every six hours Keflex 250 MG 2 capsule Orally every 6 hrs Not-Taking chlorhexidine gluconate 1.2 mg/ml mouthwash (3 sources) Start: 02-22-2023 take 10 mL by mouth twice daily Chlorhexidine Gluconate 0.12 % 10 ml Mouth/Throat Twice a day for 30 days Jan, Not-Taking clindamycin 0.01 mg/mg topical gel (18 sources) Lincosamide Antibacterial Start: 10-28-2021 Clindamycin Phosphate [...] Active doxycycline hyclate 100 mg oral capsule (4 sources) Tetracycline-class Drug Start: 08-03-2018 End: 08-07-2018 take 100 mg by mouth twice daily Doxycycline Hyclate Discontinued 100 MG PO Twice daily 14 August 03, 2018 1:00am August 07, 2018 4:06pm fluconazole 100 mg oral tablet (16 sources) Azole Antifungal Start: 11-09-2018 End: 12-27-2018 take 100 mg by mouth once daily Fluconazole Discontinued 100 MG PO Daily 60 November 09, 2018 12:00am December 27, 2018 2:41pm Start: 09-21-2018 End: 10-05-2018 take 100 mg by mouth once daily Fluconazole Discontinued 100 MG PO Daily 7 September 21, 2018 4:04pm October 05, 2018 11:32am fluticasone propionate 0.05 mg/actuat metered dose nasal spray (4 sources) Corticosteroid Start: 08-03-2018 End: 07-08-2020 Fluticasone Propionate Discontinued 0 .ROUTE .COMPLEX 1 August 03, 2018 1:00am July 08, 2020 3:48pm 1 spray intranasally ;administer into each nostril daily for 3 days, then every other day for 4 days, then once weekly hydroCHLOROthiazide 12.5 mg / lisinopril 10 mg oral tablet (4 sources) Thiazide Diuretic, Angiotensin Converting Enzyme Inhibitor Start: 01-24-2018 End: 12-11-2019 take 1 tablet by mouth once daily Lisinopril-[place] chlorothiazide Discontinued 1 TAB PO Daily January 24, 2018 12:00am December 11, 2019 2:04pm hydroCHLOROthiazide 25 mg / triamterene 37.5 mg oral capsule (14 sources) Potassium-sparing Diuretic, Thiazide Diuretic Start: 12-11-2019 End: 05-18-2023 take 1 capsule by mouth once daily Triamterene-Hydr ochlorothiazid Discontinued 1 CAP PO Daily December 11, 2019 12:00am May 18, 2023 3:39pm take 1 tablet by doris th every twenty-four hours Triamterene-HCTZ 37.5-25 MG 1 tablet in the morning Orally Once a day Active levoFLOXacin 750 mg oral tablet (4 sources) Quinolone Antimicrobial Start: 09-28-2018 End: 10-05-2018 take 750 mg by mouth once daily Levofloxacin Discontinued 750 MG PO Daily September 28, 2018 1:00am October 05, 2018 11:32am levothyroxine sodium 0.05 mg oral tablet (12 sources) l-Thyroxine Start: 11-23-2020 End: 05-12-2022 take [...] 4:40pm liothyronine sodium 0.005 mg oral tablet (9 sources) l-Triiodothyronine Start: 07-08-2020 End: 05-12-2022 take [...] Not-Taking losartan potassium 100 mg oral tablet (5 sources) Angiotensin 2 Receptor Florina Start: 12-11-2019 End: 05-18-2023 take 100 mg by mouth once daily Losartan Discontinued 100 MG PO Daily December 11, 2019 12:00am May 18, 2023 3:38pm [facility] Loteprednol Etabonate (Lotemax) 0.5 % Drops,Gel (4 sources) Start: 10-05-2018 End: 05-18-2023 apply 0.5 drop(s) into the eye(s) four times daily Loteprednol Etabonate (Lotemax) 0.5 % Drops,Gel Discontinued 1 DROPS EYE-BOTH Four times daily October 05, 2018 1:00am May 18, 2023 3:38pm 24 hr metFORMIN hydrochloride 500 mg extended release oral tablet (4 sources) Biguanide Start: 01-24-2018 End: 03-11-2020 take 750 mg by mouth once daily Metformin Discontinued 750 MG PO Daily January 24, 2018 12:00am March 11, 2020 11:28am minocycline 100 mg oral tablet (4 sources) Tetracycline-class Drug Start: 06-20-2019 End: 09-12-2019 take 100 mg by mouth once daily Minocycline Discontinued 100 MG PO Daily June 20, 2019 1:00am September 12, 2019 4:42pm mupirocin 0.02 mg/mg topical ointment (4 sources) RNA Synthetase Inhibitor Antibacterial Start: 06-20-2019 End: 04-28-2021 Mupirocin Discontinued 1 APPLIC TOPICAL Twice daily 100 30 June 20, 2019 4:58pm April 28, 2021 9:41am nasal for 3 days for 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 and prn skin wounds nabumetone 500 mg oral tablet (14 sources) Nonsteroidal Anti-inflammatory Drug Start: 11-10-2021 End: [...] Active nitrofurantoin, macrocrystals 100 mg oral capsule (4 sources) Nitrofuran Antibacterial Start: 09-07-2018 End: 10-05-2018 take 100 mg by mouth twice daily Nitrofurantoin Macrocrystal Discontinued 100 MG PO Twice daily September 07, 2018 1:00am October 05, 2018 11:32am nystatin 100 unt/mg topical powder (4 sources) Polyene Antifungal Start: 08-10-2018 End: 11-30-2018 Nystatin Discontinued 1 APPLIC TOPICAL Three times daily 60 August 10, 2018 1:00am November 30, 2018 10:29am ondansetron 8 mg oral tablet (8 sources) Serotonin-3 Receptor Antagonist Start: 06-28-2018 End: 04-28-2021 take 1 tablet by mouth three times daily Ondansetron Hcl (Zofran) 8 mg Tablet Discontinued 8 MG PO Three times daily June 28, 2018 10:04am April 28, 2021 9:41am PARoxetine hydrochloride 20 mg oral tablet (4 sources) Serotonin Reuptake Inhibitor Start: 01-24-2018 End: 09-12-2019 take 40 mg by mouth once daily Paroxetine Hcl Discontinued 40 MG PO Daily January 24, 2018 12:00am September 12, 2019 4:41pm prednisoLONE acetate 10 mg/ml ophthalmic suspension (4 sources) Corticosteroid Start: 09-07-2018 End: 10-05-2018 take 1 drop(s) into the eye(s) four times daily Prednisolone Acetate Discontinued 1 DROPS EYE-LEFT Four times daily September 07, 2018 1:00am October 05, 2018 11:33am QUEtiapine 25 mg oral tablet (4 sources) Atypical Antipsychotic Start: 06-28-2018 End: 12-11-2019 [...] e Active valACYclovir 1000 mg oral tablet (4 sources) Herpesvirus Nucleoside Analog DNA Polymerase Inhibitor, [...] sources) Anxiety 10-11-2013 Chronic Cancer of breast (9 sources) Primary malignant neoplasm of breast; Translations: [...] 1 Resolved: 2 Episodic Maintenance chemotherapy; radiotherapy (6 sources) Patient encounter status; Translations: [Encounter for antineoplastic chemotherapy] 09-07-2018 Chronic Malaise and fatigue (4 sources) Chronic fatigue, unspecified; Translations: [CHRONIC FATIGUE UNSPECIFIED] Onset: 2 Chronic Malaise and fatigue (2 sources) Other fatigue Episodic Malignant neoplasm without specification of site (2 sources) Malignant neoplastic disease 12-13-2022 Chronic Comment on above: palmoplantar Menopausal disorders (7 sources) Menopausal syndrome; Translations: [Menopausal and female climacteric states] Onset: 3 12-11-2019 Chronic Menopausal disorders (1 source) Hormone replacement therapy; Translations: [HORMONE REPLACEMENT THERAPY] Onset: 3 Episodic Mood disorders (4 sources) Chronic depression; Translations: [Depressive disorder] 10-11-2013 Chronic Nonspecific chest pain (16 sources) Chest pain, unspecified; Translations: [Chest wall pain] Onset: 2 Episodic Osteoarthritis (1 source) Primary generalized (osteo)arthritis; Translations: [Primary generalized (osteo)arthritis] Onset: 4 Chronic Other aftercare (1 source) Other mcfp (current) drug therapy; Translations: [OTH PHOTOGRAVURE PRESS OPERATOR CURRENT DRUG THERAPY] Onset: 3 Episodic Other aftercare (4 sources) Patient encounter status; Translations: [Encounter for [...] syndrome 12-13-2022 Chronic Other infections; including parasitic (4 sources) History of sepsis; Translations: [Personal history [...] NEC] Onset: 3 Chronic Other liver diseases (4 sources) Liver cyst; Translations: [Other specified diseases of liver] 06-28-2018 Chronic Other liver diseases (2 sources) Other specified diseases of liver; Translations: [Other specified disorders of liver] 05-18-2023 Chronic Other liver diseases (2 sources) Steatosis of liver 03-11-2020 Chronic Other nervous system disorders (4 sources) Peripheral neuropathy due to and following [...] ERUPTION] Onset: 3 Episodic Other skin disorders (6 sources) Localized swelling, mass and lump, left upper limb; Translations: [Mass of left axilla] 03-28-2019 Episodic Other skin disorders (4 sources) Hidradenitis suppurativa; Translations: [Hidradenitis suppurativa] 09-07-2018 [...] respiratory infection, unspecified Episodic Residual codes; unclassified (4 sources) Estrogen receptor positive tumor; Translations: [Estrogen receptor positive status [ER+]] 06-09-2018 Episodic Residual codes; unclassified (4 sources) Genetic mutation; Translations: [Genetic susceptibility to other disease] 09-07-2018 Episodic Residual codes; unclassified (2 sources) Estrogen receptor positive status [ER+]; Translations: [Estrogen receptor positive status [ER+]] 05-18-2023 Episodic Residual codes; unclassified (2 sources) Genetic susceptibility to other disease; Translations: [Genetic susceptibility to other disease] 05-18-2023 Episodic Spondylosis; intervertebral disc disorders; other back problems (17 sources) Sciatica; Translations: [Sciatica, right side] 07-09-2020 [...] Chronic cystitis 06-24-2020 Chronic Urinary tract infections (5 sources) Acute cystitis with hematuria; Translations: [Urinary [...] 05-18-2023 05-18-2023 Episodic Other aftercare (1 source) acid adjuster (current) use of selective estrogen receptor modulators (SERMs); Translations: [acid adjuster (current) use of selective estrogen receptor modulators [...] Test Name Value Interpretation Reference Range Facility Ambulatory Visit Summaryon 0 11-27-2023 Ambulatory Visit Summary MARIA M MCKEON :1970 Visit Date:11/27/2023 Ambulatory Visit Instructions Your Diagnosis BMI 37.0-37.9, adult Non-smoker Your Care Team Attending Physician - Jessica Doe Primary Care Physician - Brown LEARNING AND DEVELOPMENT SPECIALIST, Jessica L This Is Your Medications List [facility] Prescription (Natural Thyroid) amlodipine (amLODIPine 10 mg Tab) atorvastatin (atorvastatin 20 mg Tab) ciprofloxacin (ciprofloxacin 500 mg Tab) citalopram (citalopram 20 mg Tab) dapagliflozin (Farxiga 5 mg oral tablet) gabapentin (gabapentin 300 mg Cap) glipiZIDE (glipiZIDE 5 mg Tab) hydrochlorothiazide- losartan (hydrochlorothiazide -losartan 25 mg-100 mg Tab) metronidazole (MetroNIDAZOLE 500 mg Tab) oxaprozin (oxaprozin 600 mg Tab) semaglutide (Ozempic 2 mg/3 mL (0.25 mg or 0.5 mg dose) subcutaneous solution) tizanidine (tizanidine 4 mg oral capsule) Procedures Performed Bilateral mastectomy, Cervical biopsy, Chemotherapy, Colonoscopy, Excision of axillary lymph node, History of nasal sinus surgery, Other. Discharge Vitals Heart Rate (Peripheral) 74 Respiratory Rate 18 Blood Pressure 112/80 Height 157.5 cm Height 62 in Weight 91.1 kg Weight 200.42 lb BMI 36.72 Medications What How Much When Why Instructions New ciprofloxacin (ciprofloxacin 500 mg Tab) 1 Tablets By Mouth Every 12 hours BMI 37.0-37.9, adult Non-smoker Duration: 10 Days Pickup at [facility]/pharmacy #[id number] New metronidazole (MetroNIDAZOLE 500 mg Tab) 1 Tablets By Mouth Every 8 hours BMI 37.0-37.9, adult Non-smoker Duration: 10 Days Pickup at [facility]pharmacy #[id number] Unchanged amlodipine (amLODIPine 10 mg Tab) 1 [...] Every day BMI 37.0-37.9, adult Non-smoker Unchanged [facility] Prescription (Natural Thyroid) 0 45mcg tablet BID Unchanged oxaprozin (oxaprozin 600 mg Tab) 1 Tablets By Mouth 2 times a day Unchanged semaglutide (Ozempic 2 mg/ 3 mL (0.25 mg or 0.5 mg dose) subcutaneous solution) 0.5 Milligram Subcutaneous Every week Unchanged tizanidine (tizanidine 4 mg oral capsule) 1 Capsules By Mouth Every day Pharmacy Information [id number]: [address] [place], [place] [id number] [phone] Allergies Latex Macrodantin (Unknown) Percocet 10/325 (Vomiting) [...] to UTI Straining to void Stress incontinence Tachycardia Type 2 diabetes mellitus Ureteral duplication, left Urge incontinence UTI symptoms Weak urine stream Patient Survey You may receive a survey via text or e-mail asking about your office visit. Please share your experience with us by completing your survey. We appreciate your feedback and thank you for choosing us for your care. Normal [facility] Consultation Noteon 11-27-19 Consultation Note [id number] #1.00TIFF Normal [facility] Family Medicine Office/Clini c Noteon 11-27-2023 Family Medicine Office/Clinic Note HPI Staff Maria M is a 53 year old female presenting for acute visit Pain characteristics: Onset: 3 weeks Pain location: Left Lower quadrant Intensity:8/10 Medication used: Having when with a BM on left side started 3 weeks ago, loose stool started one week ago . Having spasm feeling when pooping. Pt does have hx of diverticulitis hasn't had a flare up in a few years . Does feel gassy, pain with eating or having bowel movement. Pt went to urgent care yesterday was having urgency and burning and was diagnosed with UTI started on phenazopyrdine HCL, Macrobid History of Present Illness pt having diverticulitis flare up symptoms. Review of Systems PHQ Score Initial Depression Screen Score: 0 SCORE Physical Exam Vitals & Measurements HR: 74(Peripheral) RR: 18 BP: 112/80 SpO2: 98% HT: 62 in HT: 157.5 cm WT: 91.1 kg WT: 200.42 lb BMI: 36.72 General: alert, no acute distress ENMT: oral mucosa moist, no pharyngeal erythema or exudate Cardiovascular: regular rate and rhythm, normal peripheral perfusion Respiratory: Lungs CTA, respirations non labored Extremities: no deformity, no trauma Neurological: oriented x 4, LOC appropriate for age, CN II-XII intact, motor strength equal & normal bilaterally, speech normal LLQ tender Assessment/Plan 1. Diverticula of intestine (K57.30: Diverticulosis of large intestine without perforation or abscess without bleeding) will order flagyl and cipro for diverticulitis flare up. pt to stop taking macrobid that was ordered for her UTI yesterday. if symptoms do not improve after treatment. may consider referral to GI. 2. Diverticulitis (K57.92: Diverticulitis of intestine, part unspecified, without perforation or abscess without bleeding) see above 3. BMI 37.0-37.9, adult (Z68.37: Body mass index [BMI] 37.0-37.9, adult) BMI education complete Ordered: ciprofloxacin, 500 mg = 1 tab(s), Oral, q12hr, X 10 day(s), # 20 tab(s), Refills(s) 0, Pharmacy: [id number], 157.5, cm, 11/27/23 11:30:00 EDT, Height/Length Dosing, 91.1, kg, 11/27/23 11:30:00 EDT, Weight Dosing metronidazole, 500 mg = 1 tab(s), Oral, q8hr, X 10 day(s), # 30 tab(s), Refills(s) 0, Pharmacy: [id number], 157.5, cm, 11/27/23 11:30:00 EDT, Height/Length Dosing, 91.1, kg, 11/27/23 11:30:00 EDT, Weight Dosing 4. Non-smoker (Z78.9: Other specified health status) continue not smoking Ordered: ciprofloxacin, 500 mg = 1 tab(s), Oral, q12hr, X 10 day(s), # 20 tab(s), Refills(s) 0, [id number], 157.5, cm, 11/27/23 11:30:00 EDT, Height/Length Dosing, 91.1, kg, 11/27/23 11:30:00 EDT, Weight Dosing metronidazole, 500 mg = 1 tab(s), Oral, q8hr, X 10 day(s), # 30 tab(s), Refills(s) 0, [id number], 157.5, cm, 11/27/23 11:30:00 EDT, Height/Length Dosing, 91.1, kg, 11/27/23 11:30:00 EDT, Weight Dosing Follow-up No qualifying data available Problem List/Past Medical History Ongoing Acid reflux Anxiety Asymptomatic microscopic hematuria Breast cancer Cancer Chronic depression Chronic sinusitis Depression Deviated nasal septum Diabetes Diverticula of intestine Diverticulitis Elevated hemoglobin A1c Fatty liver Flank pain Frequent urination Hidradenitis History of - multiple allergies History of skin cancer Hypertension Hypertrophy of nasal turbinates Hypothyroid Hypothyroidism IBS (irritable bowel syndrome) Kidney infection Left flank pain Left lower quadrant pain Lichen planus Lymphedema Microhematuria Mixed incontinence Other chronic cystitis without hematuria Prurigo nodularis Sepsis secondary to UTI Straining to void Stress incontinence Tachycardia Type 2 diabetes mellitus Ureteral duplication, left Urge incontinence UTI symptoms Weak urine stream Historical No qualifying data Procedure/Surgical History Bilateral mastectomy, Cervical biopsy, Chemotherapy, Colonoscopy, Excision of axillary lymph node, History of nasal sinus surgery, Other. Medications amLODIPine 10 mg Tab, 10 mg= 1 tab(s), Oral, Daily, 3 refills atorvastatin 20 mg Tab, 20 mg= 1 tab(s), Oral, Daily, 3 refills ciprofloxacin 500 mg Tab, 500 mg= 1 tab(s), Oral, q12hr citalopram 20 mg Tab, 20 mg= 1 tab(s), Oral, Daily, 3 refills Farxiga 5 mg oral tablet, 5 mg= 1 tab(s), Oral, Daily, 3 refills gabapentin 300 mg Cap, 300 mg= 1 cap(s), Oral, TID glipiZIDE 5 mg Tab, 5 mg= 1 tab(s), Oral, Daily, 3 refills hydrochlorothiazide- losartan 25 mg-100 mg Tab, 1 tab(s), Oral, Daily, 1 refills MetroNIDAZOLE 500 mg Tab, 500 mg= 1 tab(s), Oral, q8hr Natural Thyroid, 0 oxaprozin 600 mg Tab, 600 mg= 1 tab(s), Oral, BID Ozempic 2 mg/3 mL (0.25 mg or 0.5 mg dose) subcutaneous solution, 0.5 mg, SubCutaneous, qWeek, 2 refills tizanidine 4 mg oral capsule, 4 mg= 1 cap(s), Oral, Daily Allergies Latex Macrodantin (Unknown) Percocet 10/325 (Vomiting) Vicodin (Vomiting) sulfamethoxazole (Rash) Social History Alcohol - Low Risk, (more content not included)... Normal [facility] Comment on above: Result Comment: Elec tronically Signed By: Jessica Doe\.br\Date and Time Signed: 11/27/23 11:43 EDT Urine Cultureon 11-26-2023 Bacteria identified Cx Nom (U) 75,000 colonies/ml mixed bacterial skin contaminants 2 Days PERFORMED BY: [place] [address] PATHOLOGIST SWAGING MACHINE ADJUSTER ADRIENNE DRAPER M.D. Normal [facility] Comment on above: Performed By: #### C MP, CBC, CRP, ESR #### [address] #### ASO, EBV VCAIGM, EBV VCAIGG, EBVEAG, EBVNA #### [facility] , ED Note-Physicianon 10-31-19 ED Note-Physician [id number] #1.00TIFF [facility] RAD - MISCon 10-31-2023 RAD - MISC [id number] #1.00TIFF [facility] ED Note-Physicianon 10-30-19 ED Note-Physician [id number] #1.00TIFF Normal [facility] Alanine aminotransferase [En zymatic activity/volume] in Serum or PlasmaOrdered By: Paulino Clemens on 10-19-2023 ALT [Catalytic activity/Vol] 15 U/L 7-52 [facility] Albumin [Mass/volume] in Ser um or Plasma by Bromocresol green (BCG) dye binding methoOrdered By: Paulino Clemens on 10-19-2023 Albumin BCG dye [Mass/Vol] 4.5 g/dL 3.5-5.7 [facility] Alkaline phosphatase [Enzyma tic activity/volume] in Serum or PlasmaOrdered By: Paulino Clemens on 10-19-2023 ALP [Catalytic activity/Vol] 36 U/L 34-104 [facility] Aspartate aminotransferase [ Enzymatic activity/volume] in Serum or PlasmaOrdered By: Paulino Clemens on 10-19-2023 AST [Catalytic activity/Vol] 24 U/L 13-39 [facility] Basophils Auto (Bld) [#/Vol] Ordered By: Paulino Clemens on 10-19-2023 Basophils (Bld) [#/Vol] 0.0 10*3/uL 0.0-0.2 [facility] Basophils/100 WBC Auto (Bld) Ordered By: Paulino Clemens on 10-19-2023 Basophils/100 WBC (Bld) 0.5 % . [facility] Bilirubin.total [Mass/volume ] in Serum or PlasmaOrdered By: Paulino Clemens on 10-19-2023 Bilirubin [Mass/Vol] 0.4 mg/dL 0.3-1.0 [facility] Calcium [Mass/volume] in Ser um or PlasmaOrdered By: Paulino Clemens on 10-19-2023 Calcium [Mass/Vol] 9.3 mg/dL 8.6-10.3 [facility] Carbon dioxide, total [Moles /volume] in Serum or PlasmaOrdered By: Paulino Clemens on 10-19-2023 CO2 [Moles/Vol] 27.6 mmol/L 21.0-31.0 [facility] Chloride [Moles/volume] in S sam or PlasmaOrdered By: Paulino Clemens on 10-19-2023 Chloride [Moles/Vol] 99 mmol/L 98-107 [facility] Complete Blood Count Auto Di ffon 10-19-2023 Basophils (Bld) [#/Vol] 0.0 10*3/uL Normal 0.0-0.2 [facility] Comment on above: Result Comment: PERF ORMED BY: [place] [address] PATHOLOGIST SWAGING MACHINE ADJUSTER ADRIENNE DRAPER M.D. Performed By: #### C MP, CBC, CRP, ESR #### [address] #### ASO, EBV VCAIGM, EBV VCAIGG, EBVEAG, EBVNA #### [facility] , Basophils/100 WBC (Bld) 0.5 % Normal . [facility] Comment on above: Performed By: #### C MP, CBC, CRP, ESR #### [address] #### ASO, EBV VCAIGM, EBV VCAIGG, EBVEAG, EBVNA #### [facility] , Eosinophils (Bld) [#/Vol] 0.4 10*3/uL Normal 0.0-0.45 [facility] Comment on above: Performed By: #### C MP, CBC, CRP, ESR #### [address] #### ASO, EBV VCAIGM, EBV VCAIGG, EBVEAG, EBVNA #### [facility] , Eosinophils/100 WBC (Bld) 5.6 % Normal . [facility] Comment on above: Performed By: #### C MP, CBC, CRP, ESR #### [address] #### ASO, EBV VCAIGM, EBV VCAIGG, EBVEAG, EBVNA #### [facility] , Erythrocyte distribution width (RBC) [Ratio] 14.7 % Normal 11.9-15.3 [facility] Comment on above: Performed By: #### C MP, CBC, CRP, ESR #### [address] #### ASO, EBV VCAIGM, EBV VCAIGG, EBVEAG, EBVNA #### [facility] , Hematocrit (Bld) [Volume fraction] 43.4 % Normal 34.0-46.4 [facility] Comment on above: Performed By: #### C MP, CBC, CRP, ESR #### [address] #### ASO, EBV VCAIGM, EBV VCAIGG, EBVEAG, EBVNA #### [facility] , Hemoglobin (Bld) [Mass/Vol] 14.6 g/dL Normal 11.8-15.4 [facility] Comment on above: Performed By: #### C MP, CBC, CRP, ESR #### [address] #### ASO, EBV VCAIGM, EBV VCAIGG, EBVEAG, EBVNA #### [facility] , Lymphocytes (Bld) [#/Vol] 1.5 10*3/uL Normal 1.00-4.8 [facility] Comment on above: Performed By: #### C MP, CBC, CRP, ESR #### [address] #### ASO, EBV VCAIGM, EBV VCAIGG, EBVEAG, EBVNA #### [facility] , Lymphocytes/100 WBC (Bld) 23.1 % Normal . [facility] Comment on above: Performed By: #### C MP, CBC, CRP, ESR #### [address] #### ASO, EBV VCAIGM, EBV VCAIGG, EBVEAG, EBVNA #### [facility] , MCH (RBC) [Entitic mass] 29.1 pg Normal 24.7-34.3 [facility] Comment on above: Performed By: #### C MP, CBC, CRP, ESR #### [address] #### ASO, EBV VCAIGM, EBV VCAIGG, EBVEAG, EBVNA #### [facility] , MCV (RBC) [Entitic vol] 86.4 fL Normal 80-100 [facility] Comment on above: Performed By: #### C MP, CBC, CRP, ESR #### [address] #### ASO, EBV VCAIGM, EBV VCAIGG, EBVEAG, EBVNA #### [facility] , Mean Corpuscular HGB Conc 33.6 g/dL Normal 32.0-35.0 [facility] Comment on above: Performed By: #### C MP, CBC, CRP, ESR #### [address] #### ASO, EBV VCAIGM, EBV VCAIGG, EBVEAG, EBVNA #### [facility] , Monocytes (Bld) [#/Vol] 0.4 10*3/uL Normal 0.0-0.8 [facility] Comment on above: Performed By: #### C MP, CBC, CRP, ESR #### [address] #### ASO, EBV VCAIGM, EBV VCAIGG, EBVEAG, EBVNA #### [facility] , Monocytes/100 WBC (Bld) 6.6 % Normal . [facility] Comment on above: Performed By: #### C MP, CBC, CRP, ESR #### [address] #### ASO, EBV VCAIGM, EBV VCAIGG, EBVEAG, EBVNA #### [facility] , Neutrophils (Bld) [#/Vol] 4.1 10*3/uL Normal 1.8-7.7 [facility] Comment on above: Performed By: #### C MP, CBC, CRP, ESR #### [address] #### ASO, EBV VCAIGM, EBV VCAIGG, EBVEAG, EBVNA #### [facility] , Neutrophils/100 WBC (Bld) 64.2 % Normal . [facility] Comment on above: Performed By: #### C MP, CBC, CRP, ESR #### [address] #### ASO, EBV VCAIGM, EBV VCAIGG, EBVEAG, EBVNA #### [facility] , NRBC% 0.1 /100{WBC} Normal 0-0.5 [facility] Comment on above: Performed By: #### C MP, CBC, CRP, ESR #### [address] #### ASO, EBV VCAIGM, EBV VCAIGG, EBVEAG, EBVNA #### [facility] , Platelet mean volume (Bld) [Entitic vol] 7.8 fL Normal 6.3-10.7 [facility] Comment on above: Performed By: #### C MP, CBC, CRP, ESR #### [place] [address] [place] #### ASO, EBV VCAIGM, EBV VCAIGG, EBVEAG, EBVNA #### [facility] , Platelets (Bld) [#/Vol] 252 10*3/uL Normal 150-450 [facility] Comment on above: Performed By: #### C MP, CBC, CRP, ESR #### [place] [address] [place] #### ASO, EBV VCAIGM, EBV VCAIGG, EBVEAG, EBVNA #### [facility] , RBC (Bld) [#/Vol] 5.02 10*6/uL High 3.60-5.00 [facility] Comment on above: Performed By: #### C MP, CBC, CRP, ESR #### [address] #### ASO, EBV VCAIGM, EBV VCAIGG, EBVEAG, EBVNA #### [facility] , WBC (Bld) [#/Vol] 6.4 10*3/uL Normal 3.8-11.6 [facility] Comment on above: Performed By: #### C MP, CBC, CRP, ESR #### [address] #### ASO, EBV VCAIGM, EBV VCAIGG, EBVEAG, EBVNA #### [facility] , Comprehensive Metabolic Pane yadira 10-19-2023 Albumin [Mass/Vol] 4.5 g/dL Normal 3.5-5.7 [facility] Comment on above: Performed By: #### C MP, CBC, CRP, ESR #### [address] #### ASO, EBV VCAIGM, EBV VCAIGG, EBVEAG, EBVNA #### [facility] , Albumin/Globulin [Mass ratio] 2.0 {ratio} Normal [facility] Comment on above: Performed By: #### C MP, CBC, CRP, ESR #### [address] #### ASO, EBV VCAIGM, EBV VCAIGG, EBVEAG, EBVNA #### [facility] , ALP [Catalytic activity/Vol] 36 U/L Normal 34-104 [facility] Comment on above: Result Comment: PERF ORMED BY: [place] [address] PATHOLOGIST SWAGING MACHINE ADJUSTER ADRIENNE DRAPER M.D. Performed By: #### C MP, CBC, CRP, ESR #### [address] #### ASO, EBV VCAIGM, EBV VCAIGG, EBVEAG, EBVNA #### [facility] , ALT [Catalytic activity/Vol] 15 U/L Normal 7-52 [facility] Comment on above: Performed By: #### C MP, CBC, CRP, ESR #### [address] #### ASO, EBV VCAIGM, EBV VCAIGG, EBVEAG, EBVNA #### [facility] , Anion gap [Moles/Vol] 13.6 mmol/L Normal 6.0-15.0 [facility] Comment on above: Performed By: #### C MP, CBC, CRP, ESR #### [address] #### ASO, EBV VCAIGM, EBV VCAIGG, EBVEAG, EBVNA #### [facility] , AST [Catalytic activity/Vol] 24 U/L Normal 13-39 [facility] Comment on above: Performed By: #### C MP, CBC, CRP, ESR #### [address] #### ASO, EBV VCAIGM, EBV VCAIGG, EBVEAG, EBVNA #### [facility] , Bilirubin [Mass/Vol] 0.4 mg/dL Normal 0.3-1.0 [facility] Comment on above: Performed By: #### C MP, CBC, CRP, ESR #### [address] #### ASO, EBV VCAIGM, EBV VCAIGG, EBVEAG, EBVNA #### [facility] , Calcium [Mass/Vol] 9.3 mg/dL Normal 8.6-10.3 [facility] Comment on above: Performed By: #### C MP, CBC, CRP, ESR #### [address] #### ASO, EBV VCAIGM, EBV VCAIGG, EBVEAG, EBVNA #### [facility] , Chloride [Moles/Vol] 99 mmol/L Normal 98-107 [facility] Comment on above: Performed By: #### C MP, CBC, CRP, ESR #### [address] #### ASO, EBV VCAIGM, EBV VCAIGG, EBVEAG, EBVNA #### [facility] , CO2 [Moles/Vol] 27.6 mmol/L Normal 21.0-31.0 [facility] Comment on above: Performed By: #### C MP, CBC, CRP, ESR #### [address] #### ASO, EBV VCAIGM, EBV VCAIGG, EBVEAG, EBVNA #### [facility] , Creatinine [Mass/Vol] 0.85 mg/dL Normal 0.60-1.20 [facility] Comment on above: Performed By: #### C MP, CBC, CRP, ESR #### [address] #### ASO, EBV VCAIGM, EBV VCAIGG, EBVEAG, EBVNA #### [facility] , GFR/1.73 sq M.predicted MDRD (S/P/Bld) [Vol rate/Area] mL/min/{1.73_m2} Normal [facility] Comment on above: Performed By: #### C MP, CBC, CRP, ESR #### [address] #### ASO, EBV VCAIGM, EBV VCAIGG, EBVEAG, EBVNA #### [facility] , Globulin (S) [Mass/Vol] 2.3 g/dL Normal [facility] Comment on above: Performed By: #### C MP, CBC, CRP, ESR #### [address] #### ASO, EBV VCAIGM, EBV VCAIGG, EBVEAG, EBVNA #### [facility] , Glucose [Mass/Vol] 107 mg/dL High 70-100 [facility] Comment on above: Result Comment: [facility] Glucose Reference Range is dependent on time and content of last meal. Glucose of more than 200 mg/dL in a nonstressed, ambulatory subject supports the diagnosis of Diabetes Mellitus. ADA recommended reference range Performed By: #### C MP, CBC, CRP, ESR #### [address] #### ASO, EBV VCAIGM, EBV VCAIGG, EBVEAG, EBVNA #### [facility] , Potassium [Moles/Vol] 3.2 mmol/L Low 3.5-5.1 [facility] Comment on above: Performed By: #### C MP, CBC, CRP, ESR #### [place] [address] [place] #### ASO, EBV VCAIGM, EBV VCAIGG, EBVEAG, EBVNA #### [facility] , Protein [Mass/Vol] 6.8 g/dL Normal 6.4-8.9 [facility] Comment on above: Performed By: #### C MP, CBC, CRP, ESR #### [place] [address] [place] #### ASO, EBV VCAIGM, EBV VCAIGG, EBVEAG, EBVNA #### [facility] , Sodium [Moles/Vol] 137 mmol/L Normal 136-145 [facility] Comment on above: Performed By: #### C MP, CBC, CRP, ESR #### [facility] [address] [place] [address] [place] #### ASO, EBV VCAIGM, EBV VCAIGG, EBVEAG, EBVNA #### [facility] , Urea nitrogen [Mass/Vol] 24 mg/dL Normal 7-25 [facility] Comment on above: Performed By: #### C MP, CBC, CRP, ESR #### [place] [address] #### ASO, EBV VCAIGM, EBV VCAIGG, EBVEAG, EBVNA #### [facility] , Creatinine [Mass/volume] in Serum or PlasmaOrdered By: Paulino Clemens on 10-19-2023 Creatinine [Mass/Vol] 0.85 mg/dL 0.60-1.20 [facility] Eosinophils Auto (Bld) [#/Vo l]Ordered By: Paulino Clemens on 10-19-2023 Eosinophils (Bld) [#/Vol] 0.4 10*3/uL 0.0-0.45 [facility] Eosinophils/100 WBC Auto (Bl d)Ordered By: Paulino Clemens on 10-19-2023 Eosinophils/100 WBC (Bld) 5.6 % . [facility] Erythrocyte distribution wid th Auto (RBC) [Ratio]Ordered By: Paulino Clemens on 10-19-2023 Erythrocyte distribution width (RBC) [Ratio] 14.7 % 11.9-15.3 [facility] Globulin Calc (S) [Mass/Vol] Ordered By: Paulino Clemens on 10-19-2023 Globulin (S) [Mass/Vol] 2.3 g/dL [facility] Glucose [Mass/volume] in Ser um or PlasmaOrdered By: Paulino Clemens on 10-19-2023 Glucose [Mass/Vol] 107 mg/dL 70-100 [facility] Comment on above: ADA recommended refe rence rangeRandom Glucose Reference Range is dependent on time and content of last meal. Glucose of more than 200 mg/dL in a nonstressed, ambulatory subject supports the diagnosis of Diabetes Mellitus. Hematocrit Auto (Bld) [Volum e fraction]Ordered By: Paulino Clemens on 10-19-2023 Hematocrit (Bld) [Volume fraction] 43.4 % 34.0-46.4 [facility] Hemoglobin [Mass/volume] in BloodOrdered By: Paulino Clemens on 10-19-2023 Hemoglobin (Bld) [Mass/Vol] 14.6 g/dL 11.8-15.4 [facility] Leukocytes [#/volume] correc queenie for nucleated erythrocytes in Blood by Automated counOrdered By: Paulino Clemens on 10-19-2023 WBC corrected for nucl RBC Auto (Bld) [#/Vol] 6.4 10*3/uL 3.8-11.6 [facility] Lymphocytes Auto (Bld) [#/Vo l]Ordered By: Paulino Clemens on 10-19-2023 Lymphocytes (Bld) [#/Vol] 1.5 10*3/uL 1.00-4.8 [facility] Lymphocytes/100 WBC Auto (Bl d)Ordered By: Paulino Clemens on 10-19-2023 Lymphocytes/100 WBC (Bld) 23.1 % . [facility] MCH Auto (RBC) [Entitic mass ]Ordered By: Paulino Clemens on 10-19-2023 MCH (RBC) [Entitic mass] 29.1 pg 24.7-34.3 [facility] MCHC Auto (RBC) [Mass/Vol]Or dered By: Paulino Clemens on 10-19-2023 MCHC (RBC) [Mass/Vol] 33.6 g/dL 32.0-35.0 [facility] MCV Auto (RBC) [Entitic vol] Ordered By: Paulino Clemens on 10-19-2023 MCV (RBC) [Entitic vol] 86.4 fL 80-100 [facility] Monocytes Auto (Bld) [#/Vol] Ordered By: Paulino Clemens on 10-19-2023 Monocytes (Bld) [#/Vol] 0.4 10*3/uL 0.0-0.8 [facility] Monocytes/100 WBC Auto (Bld) Ordered By: Paulino Clemens on 10-19-2023 Monocytes/100 WBC (Bld) 6.6 % . [facility] Neutrophils Auto (Bld) [#/Vo l]Ordered By: Paulino Clemens on 10-19-2023 Neutrophils (Bld) [#/Vol] 4.1 10*3/uL 1.8-7.7 [facility] Neutrophils/100 WBC Auto (Bl d)Ordered By: Paulino Clemens on 10-19-2023 Neutrophils/100 WBC (Bld) 64.2 % . [facility] No Panel InformationOrdered By: Paulino Clemens on 10-19-2023 Estimated GFR (CKD-EPI) > 60.0 mL/Min [facility] Creatinine Clearance (Chem N/A [facility] Nucleated erythrocytes [Pres ence] in Blood by Automated countOrdered By: Paulino Clemens on 10-19-2023 Nucleated RBC Auto Ql (Bld) 0.1 /100{WBC} 0-0.5 [facility] Platelet mean volume Auto (B ld) [Entitic vol]Ordered By: Paulino Clemens on 10-19-2023 Platelet mean volume (Bld) [Entitic vol] 7.8 fL 6.3-10.7 [facility] Platelets Auto (Bld) [#/Vol] Ordered By: Paulino Clemens on 10-19-2023 Platelets (Bld) [#/Vol] 252 10*3/uL 150-450 [facility] Potassium [Moles/volume] in Serum or PlasmaOrdered By: Paulino Clemens on 10-19-2023 Potassium [Moles/Vol] 3.2 mmol/L 3.5-5.1 [facility] Protein [Mass/volume] in Ser um or PlasmaOrdered By: Paulino Clemens on 10-19-2023 Protein [Mass/Vol] 6.8 g/dL 6.4-8.9 [facility] RBC Auto (Bld) [#/Vol]Ordere d By: Paulino Clemens on 10-19-2023 RBC (Bld) [#/Vol] 5.02 10*6/uL 3.60-5.00 [facility] Serum or plasma albumin/glob ulin mass ratioOrdered By: Paulino Clemens on 10-19-2023 Albumin/Globulin [Mass ratio] 2.0 {ratio} [facility] Serum or plasma anion gap de terminationOrdered By: Paulino Clemens on 10-19-2023 Anion gap [Moles/Vol] 13.6 mmol/L 6.0-15.0 [facility] Sodium [Moles/volume] in Ser um or PlasmaOrdered By: Paulino Clemens on 10-19-2023 Sodium [Moles/Vol] 137 mmol/L 136-145 [facility] Urea nitrogen [Mass/volume] in Serum or PlasmaOrdered By: Paulino Clemens on 10-19-2023 Urea nitrogen [Mass/Vol] 24 mg/dL 7-25 [facility] WBC Auto (Bld) [#/Vol]Ordere d By: Paulino Clemens on 10-19-2023 WBC (Bld) [#/Vol] 6.4 10*3/uL 3.8-11.6 [facility] Retail - Clinical Noteon Retail - Clinical Note [id number] #1.00TIFF Normal [facility] CHEMISTRYOrdered By: Michelle Jacobo on 09-20-2023 HbA1c (Bld) [Mass fraction] 7.0 % High <=5.9% [facility] ChemAutoSS Consent for Treatmenton 09-01 Consent for Treatment [id number] #1.00TIFF Normal [facility] [id number] 09-20-2023 HbA1c (Bld) [Mass fraction] 7.0 % High <=5.9 [facility] [facility] Comment on above: Performed By: #### [id number] #### [facility] [address] [place] [address] Family Medicine Office/Clini c Noteon 09-12-2023 Family [...] feel SOB. pt has never seen a ship wirer. Questions/Concerns: Needs refills on Ozempic, amlodipine, citalopram, [...] Daily, # 90 tab(s), Refills(s) 3, Pharmacy: [facility], 157.5, cm, 09/12/23 8:34:00 EST, Height/Length Dosing, 92.4, kg, 09/12/23 8:34:00 EST, Weight Dosing amlodipine, 10 mg = 1 tab(s), Oral, Daily, # 90 tab(s), Refills(s) 3, Pharmacy: [facility], 157.5, cm, 12/13/22 15:39:00 EDT, Height/Length Dosing, 93.9, kg, 12/13/22 15:39:00 EDT, Weight Dosing ciprofloxacin, 500 mg = 1 tab(s), Oral, q12hr, X 10 day(s), # 20 tab(s), Refills(s) 0, Pharmacy: [facility] #[id number], 157.5, cm, 06/19/23 9:21:00 EST, Height/Length Dosing, 92.6, kg, 06/19/23 9:21:00 EST, Weight Dosing citalopram, 20 mg = 1 tab(s), Oral, Daily, # 90 tab(s), Refills(s) 3, Pharmacy: [facility], 157.5, cm, 12/13/22 15:39:00 EDT, [...] cm, 12/13/22 15:39 (more content not included)... [facility] Comment on above: Result Comment: Elec tronically Signed By: Jessica Doe\.br\Date and Time Signed: 09/12/23 11:41 EST Retail - Clinical Noteon Retail - Clinical Note [id number] #1.00TIFF [facility] Formson 06-27-2023 Forms [id number] #1.00TIFF Normal [facility] C Urineon 06-21-2023 Bacteria identified Cx Nom (U) Microbiology PROCEDURE: Urine Culture [R1] SOURCE: U CleanCatch BODY SITE: COLLECTED DATE/TIME: 06/19/2023 09:37 EST RECEIVED DATE/TIME: 06/19/2023 18:13 EST START DATE/TIME: 06/19/2023 18:13 EST FREE TEXT SOURCE: Jessica Doe Jodi L FINAL REPORTS Final Report [] Verified Date/Time: 06/21/2023 09:00 EST <10,000 cfu/ml Mixed skin contaminants Performing Locations R1: This test was performed at: [facility], [address] [place] [address], [facility]- , , [facility] Comment on above: Performed By: #### [id number] #### [facility] [address] [place] [address] Ambulatory Visit Summaryon 1 08-19-2022 Ambulatory Visit Summary MARIA M MCKEON :1970 Visit Date:06/19/2023 Ambulatory Visit Instructions Your Diagnosis Type 2 diabetes mellitus Left lower quadrant pain Left flank pain BMI 37.0-37.9, adult Non-smoker Tests Performed Urnls Dip Stick Auto w/o Microscopy POC 52102 Your Care Team Attending Physician - Jessica Doe Primary Care Physician - Jessica Doe This Is Your Medications List [facility] Prescription (Natural Thyroid) amlodipine (amLODIPine 10 mg [...] adult Non-smoker Duration: 7 Days Pickup at [facility] #6190 Unchanged amlodipine (amLODIPine 10 mg Tab) 1 [...] Capsules By Mouth Every day Pharmacy Information [facility] #[id number]: [address] [place], [place] [phone] Test Results Urnls Dip Stick Auto w/o Microscopy POC 51704 (06/19/2023) Bilirubin Urine Dipstick - Negative Blood Urine Dipstick - Negative Glucose Urine Dipstick - 2+ 500 mg/dl Ketones Urine Dipstick - Negative Leukocytes Urine Dipstick - Negative Nitrite Urine Dipstick - Negative Protein Urine Dipstick - Negative Specific Cord Urine Dipstick - 1.020 Urine Appearance Urine [...] you for choosing us for your care. [facility] Ambulatory Visit Summary MARIA M MCKEON :1970 Visit Date:06/19/2023 Ambulatory Visit Instructions Your Diagnosis Type 2 diabetes mellitus Left lower quadrant pain Left flank pain BMI 37.0-37.9, adult Non-smoker Tests Performed Urnls Dip Stick Auto w/o Microscopy POC 94919 Your Care Team Attending Physician - Jessica Doe Primary Care Physician - Jessica Doe This Is Your Medications List [facility] Prescription (Natural Thyroid) amlodipine (amLODIPine 10 mg [...] adult Non-smoker Duration: 7 Days Pickup at [facility] #6109 Unchanged amlodipine (amLODIPine 10 mg Tab) 1 [...] Capsules By Mouth Every day Pharmacy Information [facility] #[id number]: [address] [place], [place] [phone] Test Results Urnls Dip Stick Auto w/o Microscopy POC 58095 (06/19/2023) Bilirubin Urine Dipstick - Negative Blood Urine Dipstick - Negative Glucose Urine Dipstick - 2+ 500 mg/dl Ketones Urine Dipstick - Negative Leukocytes Urine Dipstick - Negative Nitrite Urine Dipstick - Negative Protein Urine Dipstick - Negative Specific Cord Urine Dipstick - 1.020 Urine Appearance Urine [...] for choosing us for your care. Normal [facility] CHEMISTRYOrdered By: Cindy Michelle se on 06-19-2023 HbA1c (Bld) [Mass fraction] 7.9 % High <=5.9% [facility] [employer] Family Medicine Office/Clini c Noteon 06-19-2023 Family Medicine Office/Clinic Note HPI Staff Maria M is a 52 year old female presenting for 1 month follow up Sepsis secondary to UTI: [facility] pt was still fatigued and weak FMLA paperwork completed. Patient is here for follow up on Diabetes. How often are you checking your blood sugars? once every couple days What are your average readings? Fasting 170's Paresthesias, Ulcerations or sores? no Lisinopril, aspirin, statin therapy? Yes Last A1c: 02/13/23 7.6 had done at [facility]. Due today Questions/Concerns: no refills needed 2 [...] day(s), # 14 tab(s), Refills(s) 0, Pharmacy: [id number], 157.5, cm, 06/19/23 9:21:00 EST, Height/Length Dosing, 92.6, kg, 06/19/23 9:21:00 EST, Weight Dosing HgbA1c Lab Specimen Collect [id number] Urine Culture 2. Left lower quadrant pain (R10.32: Left lower quadrant pain) urinalysis in office today. pt states she is having very similar symptoms when she was hospitalized for septic UTI. will treat with Cipro since we are going into holiday Ordered: ciprofloxacin, 500 mg = 1 tab(s), Oral, q12hr, X 7 day(s), # 14 tab(s), Refills(s) 0, Pharmacy: [id number], 157.5, cm, 06/19/23 9:21:00 EST, Height/Length Dosing, 92.6, kg, 06/19/23 9:21:00 EST, Weight Dosing Urine Culture Urnls Dip Stick Auto w/o Microscopy POC 43713 3. Left flank pain (R10.9: Unspecified abdominal pain) see above Ordered: ciprofloxacin, 500 mg = 1 tab(s), Oral, q12hr, X 7 day(s), # 14 tab(s), Refills(s) 0, Pharmacy: [id number], 157.5, cm, 06/19/23 9:21:00 EST, Height/Length Dosing, 92.6, kg, 06/19/23 9:21:00 EST, Weight Dosing Urine Culture Urnls Dip Stick Auto w/o Microscopy POC 56619 4. BMI 37.0-37.9, adult (Z68.37: Body mass index [BMI] 37.0-37.9, adult) BMI education complete Ordered: ciprofloxacin, 500 mg = 1 tab(s), Oral, q12hr, X 7 day(s), # 14 tab(s), Refills(s) 0, Pharmacy: [facility] #[id number], 157.5, cm, 06/19/23 9:21:00 EST, Height/Length Dosing, 92.6, kg, 06/19/23 9:21:00 EST, Weight Dosing Urine Culture 5. Non-smoker (Z78.9: Other specified health status) continue not smoking Ordered: ciprofloxacin, 500 mg = 1 tab(s), Oral, q12hr, X 7 day(s), # 14 tab(s), Refills(s) 0, Pharmacy: [facility] #[id number], 157.5, cm, 06/19/23 9:21:00 EST, Height/Length Dosing, 92.6, kg, 06/19/23 9:21:00 EST, Weight Dosing Lab Specimen Collect 33859 Urine Culture Follow-up No qualifying data available [...] surgery, Ot (more content not included)... Normal [facility] Comment on above: Result Comment: Elec tronically Signed By: Jessica Doe\.br\Date and Time Signed: 06/19/23 09:49 EST [id number] 06-19-2023 HbA1c (Bld) [Mass fraction] 7.9 % High <=5.9 [facility] Comment on above: Performed By: #### [id number] ####[facility] [id number] [address] Formson 06-01-2023 Forms [id number] #1.00TIFF Normal [facility] Population Healthon 05-31-20 Population Health Case Information Case Priority: None Programs: -- Referral Source: Netting Inspector Referral Reason: Care coordination Case Type: Transition [...] Oral, Daily Allergies Latex Macrodantin (Unknown) Percocet (Vomiting) Vicodin (Vomiting) sulfamethoxazole (Rash) Social History [...] (min): 5 Outcome: Case discussion Contact Type: front office coordinator Contact Name: Nishi Stephens RN Notes: TCM #3, see FT summary note. Created By: Nishi Stephens RN Date: May 26, 2023 Method: Phone call Type: Outbound Duration (min): 1 Outcome: Left message-voicemail Contact Type: front office coordinator Contact Name: Susan Clark RN Notes: [...] (min): -- Outcome: Left message-voicemail Contact Type: front office coordinator Contact Name: Nishi Stephens RN Notes: Attempted to call patient for TCM #1, no answer, left message asking for a return call. Created By: Nishi Stephens RN [facility] Formson 05-23-2023 Forms [id number] #1.00TIFF [facility] Ambulatory Visit Summaryon 1 Ambulatory Visit Summary MARIA M MCKEON :1970 Visit Date:05/22/2023 Ambulatory Visit Instructions Your Diagnosis Sepsis secondary to UTI Diabetes BMI 36.0-36.9,adult Non-smoker Urinary tract infection, site not specified Your Care Team Attending Physician - Jessica Doe Primary Care Physician - Jessica Doe This Is Your Medications List [facility] Prescription (Natural Thyroid) amlodipine (amLODIPine 10 mg [...] 9:20 AM EST With: Jessica Doe Where: [facility] Normal [facility] Office/Clini c Noteon 05-22-2023 Family [facility] Office/Clinic Note HPI Staff Maria M is [...] Oral, Daily Allergies Latex Macrodantin (Unknown) Percocet (Vomiting) Vicodin (Vomiting) sulfamethoxazole (Rash) Social History Alcohol - Low Risk, 02/13/2012 Current, 1-2 times per month, 08/06/2020 Substance Abuse - Denies Substance Abuse, 02/13/2012 Tobacco - Denies Tobacco Use, 02/13/2012 Never (less than 100 in lifetime) Tobacco Use:. Never Smokeless Tobacco Use:. Househ (more content not included)... [facility] Comment on above: Result Comment: Elec tronically Signed By: Jessica Doe\.br\Date and Time Signed: 05/22/23 09:34 EDT Provider Letteron 05-22-2023 Provider Letter May 22, [address] [place] [address] [place] [address] : 1970 To Whom It May Concern, Please excuse above patient from work. Date of Illness: From: 05.22.2023 To: 05.22.2023 May Return to Work On: 05.22.2023 Sincerely, JANE Chandler [address] [address] [facility] RAD - CT Reporton 05-17-2023 RAD - CT Report [id number] #1.00TIFF [facility] Ambulatory Visit Summaryon 1 Ambulatory Visit Summary MARIA M MCKEON :1970 Visit Date:05/16/2023 Ambulatory Visit Instructions Your Diagnosis BMI 36.0-36.9,adult Non-smoker Your Care Team Attending Physician - Jessica Doe Primary Care Physician - Jessica Doe This Is Your Medications List Misc Prescription (Natural Thyroid) amlodipine (amLODIPine 10 mg [...] UTI symptoms Weak urine stream Normal [facility] Family Medicine Office/Clini c Noteon 05-16-2023 Family Medicine Office/Clinic Note HPI Staff Maria M is a 52 year old female presenting to TCM follow up TCM: Hospital: [facility] Admission date: 05/13/23 Discharge date: 05/14/23 Symptoms [...] fluids it seemed to subside. Pt brought [facility] paperwork if that could be filled [...] TCM Trans care mgmt 7 day disch 63860 3. Non-smoker (Z78.9: Other specified health status) continue not smoking Ordered: TCM Trans care mgmt 7 day disch 93910 Urinary tract infection, site not specified (N39.0: [...] 100 in (more content not included)... Normal [facility] Comment on above: Result Comment: Elec tronically Signed By: Jessica Doe\.br\Date and Time Signed: 05/16/23 12:17 EDT [facility] 05-15-20 [facility] Case Information Case Priority: None Programs: -- Referral Source: Netting Inspector Referral Reason: Care coordination Case Type: Transition [...] Care Plan Progress Note Admit Date: 05/13/23 [facility] Date of Discharge: 05/14/23 Follow-up appointment scheduled? yes, 05/17/23 at 1640 with Katrina Dasilva Did you understand your [...] for Transitional Care Management following hospitalization at [facility] for UTI, sepsis, hypokalemia and weakness. [...] Type: Patient Contact Name: MIKE MARIA M Stefan Notes: TCM #1, see FT summary note Created By: Nishi Stephens RN Date: May 15, 2023 Method: Phone call Type: Outbound Duration (min): -- Outcome: Left message-voicemail Contact Type: front office coordinator Contact Name: Nishi Stephens RN Notes: Attempted to call patient for TCM #1, no answer, left message asking for a return call. Created By: Nishi Stephens RN [facility] Pre-Certification Formon Pre-Certification Form [id number] #1.00CD:127 [facility] COVID Quick Testingon 2022 Result Negative [facility] Other SARS-CoV-2 (COVID-19) RNA NA A+probe Ql (Resp)on 03-13-2023 SARS-CoV-2 (COVID-19) RNA VON+probe Ql (Unsp spec) Negative [facility] Other Family Medicine Office/Clini c Noteon 03-06-2023 Family Medicine Office/Clinic Note HPI Staff Maria M is a 52 year old female presenting to [facility] Establish Care: History: Any previous diagnosis: [...] last few months. Pt went to see student development coordinator on Monday and diabetic eye exam was [...] capsule, 4 (more content not included)... Normal [facility] Comment on above: Result Comment: Elec tronically Signed By: Jessica Doe\.br\Date and Time Signed: 03/06/23 10:00 EDT Lab Reportson 03-06-2023 Lab Reports [id number] #1.00CD:127 Normal [facility] Ambulatory Visit Summaryon 0 03-03-2023 Ambulatory Visit Summary MIKEMARIA M :1970 Visit Date:03/03/2023 Ambulatory Visit Instructions Your Diagnosis Type 2 diabetes mellitus Elevated hemoglobin A1c Hypertension BMI 37.0-37.9, adult Non-smoker Your Care Team Attending Physician - Jessica Doe Primary Care Physician - Jessica Doe This Is Your Medications List [facility] Prescription (Natural Thyroid) amlodipine (amLODIPine 10 mg [...] 3:20 PM EDT With: Jessica Doe Where: [facility] Normal [facility] Mononucleosis Test, [place] 0 02-22-2023 Heterophile Ab LA Ql (S) Negative [facility] Other Quick Strepon 02-22-2023 S. pyogenes Org specific cx Ql (Throat) Negative [facility] [employer] Other Quick Strep [facility] Other EBS A1C with Estimated Ave Rach leefabio 02-13-2023 Glucose [Mass/Vol] 171 mg/dL Normal [facility] Comment on above: Result Comment: PERF ORMED BY: [place] [address] PATHOLOGIST SWAGING MACHINE ADJUSTER ADRIENNE DRAPER M.D. Performed By: #### C MP, CBC, CRP, ESR #### [address] #### ASO, EBV VCAIGM, EBV VCAIGG, EBVEAG, EBVNA #### [facility] , HbA1c (Bld) [Mass fraction] 7.6 % High 4.3-5.6 [facility] Comment on above: Result Comment: Incr eased risk for diabetes: 5.7 - 6.4 diabetes: >6.4 glycemic control for adults with diabetes: <7.0 Performed By: #### C MP, CBC, CRP, ESR #### [address] [place] [address] [place] #### ASO, EBV VCAIGM, EBV VCAIGG, EBVEAG, EBVNA #### [facility] , Employee Comp Metabolic Miltone yadira 02-13-2023 Albumin [Mass/Vol] 4.2 g/dL Normal 3.5-5.7 [facility] Comment on above: Performed By: #### C MP, CBC, CRP, ESR #### [address] #### ASO, EBV VCAIGM, EBV VCAIGG, EBVEAG, EBVNA #### [facility] , Albumin/Globulin [Mass ratio] 1.5 {ratio} Normal [facility] Comment on above: Performed By: #### C MP, CBC, CRP, ESR #### [address] #### ASO, EBV VCAIGM, EBV VCAIGG, EBVEAG, EBVNA #### [facility] , ALP [Catalytic activity/Vol] 59 U/L Normal 34-104 [facility] Comment on above: Performed By: #### C MP, CBC, CRP, ESR #### [address] #### ASO, EBV VCAIGM, EBV VCAIGG, EBVEAG, EBVNA #### [facility] , ALT [Catalytic activity/Vol] 17 U/L Normal 7-52 [facility] Comment on above: Performed By: #### C MP, CBC, CRP, ESR #### [address] #### ASO, EBV VCAIGM, EBV VCAIGG, EBVEAG, EBVNA #### [facility] , Anion gap [Moles/Vol] 13.8 mmol/L Normal 6.0-15.0 Th e [facility] Comment on above: Performed By: #### C MP, CBC, CRP, ESR #### [address] #### ASO, EBV VCAIGM, EBV VCAIGG, EBVEAG, EBVNA #### [facility] , AST [Catalytic activity/Vol] 27 U/L Normal 13-39 [facility] Comment on above: Performed By: #### C MP, CBC, CRP, ESR #### [address] #### ASO, EBV VCAIGM, EBV VCAIGG, EBVEAG, EBVNA #### [facility] , Bilirubin [Mass/Vol] 0.5 mg/dL Normal 0.3-1.0 [facility] Comment on above: Performed By: #### C MP, CBC, CRP, ESR #### [address] #### ASO, EBV VCAIGM, EBV VCAIGG, EBVEAG, EBVNA #### [facility] , Calcium [Mass/Vol] 9.2 mg/dL Normal 8.6-10.3 [facility] Comment on above: Performed By: #### C MP, CBC, CRP, ESR #### [address] #### ASO, EBV VCAIGM, EBV VCAIGG, EBVEAG, EBVNA #### [facility] , Chloride [Moles/Vol] 100 mmol/L Normal 98-107 [facility] Comment on above: Performed By: #### C MP, CBC, CRP, ESR #### [place] [address] [place] #### ASO, EBV VCAIGM, EBV VCAIGG, EBVEAG, EBVNA #### [facility] , CO2 [Moles/Vol] 25.6 mmol/L Normal 21.0-31.0 [facility] Comment on above: Performed By: #### C MP, CBC, CRP, ESR #### [address] #### ASO, EBV VCAIGM, EBV VCAIGG, EBVEAG, EBVNA #### [facility] , Creatinine [Mass/Vol] 0.71 mg/dL Normal 0.60-1.20 [facility] Comment on above: Performed By: #### C MP, CBC, CRP, ESR #### [address] #### ASO, EBV VCAIGM, EBV VCAIGG, EBVEAG, EBVNA #### [facility] , GFR/1.73 sq M.predicted MDRD (S/P/Bld) [Vol rate/Area] mL/min/{1.73_m2} Normal [facility] Comment on above: Performed By: #### C MP, CBC, CRP, ESR #### [address] #### ASO, EBV VCAIGM, EBV VCAIGG, EBVEAG, EBVNA #### [facility] , Globulin (S) [Mass/Vol] 2.8 g/dL Normal [facility] Comment on above: Performed By: #### C MP, CBC, CRP, ESR #### [address] #### ASO, EBV VCAIGM, EBV VCAIGG, EBVEAG, EBVNA #### [facility] , Glucose [Mass/Vol] 131 mg/dL High 70-100 [facility] Comment on above: Result Comment: ADA recommended reference range Performed By: #### C MP, CBC, CRP, ESR #### [place] [address] [place] #### ASO, EBV VCAIGM, EBV VCAIGG, EBVEAG, EBVNA #### [facility] , Potassium [Moles/Vol] 3.4 mmol/L Low 3.5-5.1 [facility] Comment on above: Performed By: #### C MP, CBC, CRP, ESR #### [address] #### ASO, EBV VCAIGM, EBV VCAIGG, EBVEAG, EBVNA #### [facility] , Protein [Mass/Vol] 7.0 g/dL Normal 6.4-8.9 [facility] Comment on above: Performed By: #### C MP, CBC, CRP, ESR #### [address] #### ASO, EBV VCAIGM, EBV VCAIGG, EBVEAG, EBVNA #### [facility] , Sodium [Moles/Vol] 136 mmol/L Normal 136-145 [facility] Comment on above: Performed By: #### C MP, CBC, CRP, ESR #### [address] #### ASO, EBV VCAIGM, EBV VCAIGG, EBVEAG, EBVNA #### [facility] , Urea nitrogen [Mass/Vol] 20 mg/dL Normal 7-25 [facility] Comment on above: Performed By: #### C MP, CBC, CRP, ESR #### [address] #### ASO, EBV VCAIGM, EBV VCAIGG, EBVEAG, EBVNA #### [facility] , Employee Complete Blood Coun [facility] 02-13-2023 Basophils (Bld) [#/Vol] 0.0 10*3/uL Normal 0.0-0.2 [facility] Comment on above: Result Comment: PERF ORMED BY: [place] [address] PATHOLOGIST SWAGING MACHINE ADJUSTER ADRIENNE DRAPER M.D. Performed By: #### P ILLAR CMP, PILLAR CBC, EBS A1C, PILLAR LIPID, PILLAR TSH, PILLAR LDLD #### [address] #### NICOTINE QUAL #### [facility] , Basophils/100 WBC (Bld) 0.4 % Normal . T rafiq [facility] Comment on above: Performed By: #### P ILLAR CMP, PILLAR CBC, EBS A1C, PILLAR LIPID, PILLAR TSH, PILLAR LDLD #### [address] #### NICOTINE QUAL #### [facility] , Eosinophils (Bld) [#/Vol] 0.3 10*3/uL Normal 0.0-0.45 [facility] Comment on above: Performed By: #### P ILLAR CMP, PILLAR CBC, EBS A1C, PILLAR LIPID, PILLAR TSH, PILLAR LDLD #### [address] #### NICOTINE QUAL #### [facility] , Eosinophils/100 WBC (Bld) 5.4 % Normal . [facility] Comment on above: Performed By: #### P ILLAR CMP, PILLAR CBC, EBS A1C, PILLAR LIPID, PILLAR TSH, PILLAR LDLD #### [place] [address] [place] #### NICOTINE QUAL #### [facility] , Erythrocyte distribution width (RBC) [Ratio] 13.7 % Normal 11.9-15.3 [facility] Comment on above: Performed By: #### P ILLAR CMP, PILLAR CBC, EBS A1C, PILLAR LIPID, PILLAR TSH, PILLAR LDLD #### [place] [address] [place] #### NICOTINE QUAL #### [facility] , Hematocrit (Bld) [Volume fraction] 43.7 % Normal 34.0-46.4 [facility] Comment on above: Performed By: #### P ILLAR CMP, PILLAR CBC, EBS A1C, PILLAR LIPID, PILLAR TSH, PILLAR LDLD #### [address] #### NICOTINE QUAL #### [facility] , Hemoglobin (Bld) [Mass/Vol] 15.0 g/dL Normal 11.8-15.4 [facility] Comment on above: Performed By: #### P ILLAR CMP, PILLAR CBC, EBS A1C, PILLAR LIPID, PILLAR TSH, PILLAR LDLD #### [address] #### NICOTINE QUAL #### [facility] , Lymphocytes (Bld) [#/Vol] 1.8 10*3/uL Normal 1.00-4.8 [facility] Comment on above: Performed By: #### P ILLAR CMP, PILLAR CBC, EBS A1C, PILLAR LIPID, PILLAR TSH, PILLAR LDLD #### [address] #### NICOTINE QUAL #### [facility] , Lymphocytes/100 WBC (Bld) 37.2 % Normal . [facility] Comment on above: Performed By: #### P ILLAR CMP, PILLAR CBC, EBS A1C, PILLAR LIPID, PILLAR TSH, PILLAR LDLD #### [address] #### NICOTINE QUAL #### [facility] , MCH (RBC) [Entitic mass] 28.9 pg Normal 24.7-34.3 [facility] Comment on above: Performed By: #### P ILLAR CMP, PILLAR CBC, EBS A1C, PILLAR LIPID, PILLAR TSH, PILLAR LDLD #### [place] [address] [place] #### NICOTINE QUAL #### [facility] , MCV (RBC) [Entitic vol] 84.0 fL Normal 80-100 T he [facility] Comment on above: Performed By: #### P ILLAR CMP, PILLAR CBC, EBS A1C, PILLAR LIPID, PILLAR TSH, PILLAR LDLD #### [place] [address] [place] #### NICOTINE QUAL #### [facility] , Mean Corpuscular HGB Conc 34.4 g/dL Normal 32.0-35.0 [facility] Comment on above: Performed By: #### P ILLAR CMP, PILLAR CBC, EBS A1C, PILLAR LIPID, PILLAR TSH, PILLAR LDLD #### [place] [address] [place] #### NICOTINE QUAL #### [facility] , Monocytes (Bld) [#/Vol] 0.5 10*3/uL Normal 0.0-0.8 [facility] Comment on above: Performed By: #### P ILLAR CMP, PILLAR CBC, EBS A1C, PILLAR LIPID, PILLAR TSH, PILLAR LDLD #### [address] #### NICOTINE QUAL #### [facility] , Monocytes/100 WBC (Bld) 9.7 % Normal . T rafiq [facility] Comment on above: Performed By: #### P ILLAR CMP, PILLAR CBC, EBS A1C, PILLAR LIPID, PILLAR TSH, PILLAR LDLD #### [address] #### NICOTINE QUAL #### [facility] , Neutrophils (Bld) [#/Vol] 2.3 10*3/uL Normal 1.8-7.7 [facility] Comment on above: Performed By: #### P ILLAR CMP, PILLAR CBC, EBS A1C, PILLAR LIPID, PILLAR TSH, PILLAR LDLD #### [facility] [address] [place] [address] [place] #### NICOTINE QUAL #### [facility] , Neutrophils/100 WBC (Bld) 47.3 % Normal . [facility] Group Comment on above: Performed By: #### P ILLAR CMP, PILLAR CBC, EBS A1C, PILLAR LIPID, PILLAR TSH, PILLAR LDLD #### [facility] [address] [place] [address] #### NICOTINE QUAL #### [facility] , NRBC% 0.2 /100{WBC} Normal 0-0.5 The [facility] Comment on above: Performed By: #### P ILLAR CMP, PILLAR CBC, EBS A1C, PILLAR LIPID, PILLAR TSH, PILLAR LDLD #### [facility] [address] [place] [address] #### NICOTINE QUAL #### [facility] , Platelet mean volume (Bld) [Entitic vol] 7.8 fL Normal 6.3-10.7 The [facility] Comment on above: Performed By: #### P ILLAR CMP, PILLAR CBC, EBS A1C, PILLAR LIPID, PILLAR TSH, PILLAR LDLD #### [address] #### NICOTINE QUAL #### [facility] , Platelets (Bld) [#/Vol] 245 10*3/uL Normal 150-450 The [facility] Comment on above: Performed By: #### P ILLAR CMP, PILLAR CBC, EBS A1C, PILLAR LIPID, PILLAR TSH, PILLAR LDLD #### [address] #### NICOTINE QUAL #### [facility] , RBC (Bld) [#/Vol] 5.20 10*6/uL High 3.60-5.00 The [facility] Comment on above: Performed By: #### P ILLAR CMP, PILLAR CBC, EBS A1C, PILLAR LIPID, PILLAR TSH, PILLAR LDLD #### [facility] [address] [place] [address] [place] #### NICOTINE QUAL #### [facility] , WBC (Bld) [#/Vol] 4.8 10*3/uL Normal 3.8-11.6 The [facility] Comment on above: Performed By: #### P ILLAR CMP, PILLAR CBC, EBS A1C, PILLAR LIPID, PILLAR TSH, PILLAR LDLD #### [address] #### NICOTINE QUAL #### [facility] , Employee LDL Chol Measuredon 02-13-2023 Employee LDL Chol Measured 99 mg/dL Normal 0-100 [facility] Comment on above: Result Comment: LDL ATP III CLASSIFICATION LDL less than 100 mg/dL Optimal LDL 100-129 mg/dL Near or above optimal LDL 130-159 mg/dL Borderline high LDL 160-189 mg/dL High LDL greater than 189 mg/dL Very high Performed By: #### C MP, CBC, CRP, ESR #### [address] #### ASO, EBV VCAIGM, EBV VCAIGG, EBVEAG, EBVNA #### [facility] , Employee Lipid Profileon Cholesterol [Mass/Vol] 215 mg/dL High 140-200 Th e [facility] Comment on above: Result Comment: Chol less than 200 mg/dl low risk Chol 201-239 mg/dl borderline risk Chol 240 mg/dl and greater high risk Performed By: #### C MP, CBC, CRP, ESR #### [address] #### ASO, EBV VCAIGM, EBV VCAIGG, EBVEAG, EBVNA #### [facility] , Cholesterol in HDL [Mass/Vol] 34 mg/dL Normal 23-92 [facility] Comment on above: Result Comment: HDL CHOL ATP-III CLASSIFICATION Cardiovascular Risk HDL > or equal to 60 mg/dL LOW HDL < 40 mg/dL HIGH Performed By: #### C MP, CBC, CRP, ESR #### [address] #### ASO, EBV VCAIGM, EBV VCAIGG, EBVEAG, EBVNA #### [facility] , Cholesterol.total/Eulalia sterol in HDL [Mass ratio] 6.3 {ratio} Normal <5.0 [facility] Comment on above: Performed By: #### C MP, CBC, CRP, ESR #### [address] #### ASO, EBV VCAIGM, EBV VCAIGG, EBVEAG, EBVNA #### [facility] , LDL Cholesterol,Calculated Not performed Normal 0-100 The [facility] Comment on above: Performed By: #### C MP, CBC, CRP, ESR #### [address] #### ASO, EBV VCAIGM, EBV VCAIGG, EBVEAG, EBVNA #### [facility] , Triglyceride w/Reflex 482 mg/dL High 0-149 The [facility] Comment on above: Result Comment: TRIG ATP [...] be calculated and resulted. Performed By: #### C MP, CBC, CRP, ESR #### [address] #### ASO, EBV VCAIGM, EBV VCAIGG, EBVEAG, EBVNA #### [facility] , VLDL CHOLESTEROL 96 mg/dL Normal The [facility] Comment on above: Performed By: #### C MP, CBC, CRP, ESR #### [address] #### ASO, EBV VCAIGM, EBV VCAIGG, EBVEAG, EBVNA #### [facility] , Employee Thyroid Stim Hormon rohan 02-13-2023 Employee Thyroid Stim Hormone 1.38 u[iU]/mL Normal 0.45-5.33 The [facility] Comment on above: Result Comment: PERF ORMED BY: [place] [address] PATHOLOGIST SWAGING MACHINE ADJUSTER ADRIENNE DRAPER M.D. Performed By: #### C MP, CBC, CRP, ESR #### [address] #### ASO, EBV VCAIGM, EBV VCAIGG, EBVEAG, EBVNA #### [facility] , Nicotine Metabolite, Qualon 02-13-2023 Nicotine Metabolite Negative Normal Cutoff=25 The [facility] Comment on above: Result Comment: Perf ormed at: - [facility] [address] [id number] Tool Drawing Checker: Huy Montez MD, Phone: [phone] PERFORMED BY: [place] [address] PATHOLOGIST SWAGING MACHINE ADJUSTER ADRIENNE DRAPER M.D. Performed By: #### C MP, CBC, CRP, ESR #### [address] #### ASO, EBV VCAIGM, EBV VCAIGG, EBVEAG, EBVNA #### [facility] , Anti-Streptolysin O Antibody on 01-05-2023 Anti-Streptolysin O Antibody <20.0 Normal 0.0-200.0 The [facility] Comment on above: Order Comment: Reaso n for Exam Rash and nonspecific skin eruption Result Comment: Perf ormed at: - [facility] [address] [id number] Tool Drawing Checker: Kings Robles PhD, Phone: [phone] Performed By: #### C MP, CBC, CRP, ESR #### [facility] [address] [place] [address] #### ASO, EBV VCAIGM, EBV VCAIGG, EBVEAG, EBVNA #### [facility] , Anti-Streptolysin O Antibody <20.0 0.0-200.0 [facility] Other C-Reactive Proteinon 023 C-Reactive Protein 1.5 mg/dL High 0.0-0.5 The [facility] Comment on above: Order Comment: Reaso n for Exam Rash and nonspecific skin eruption Result Comment: PERF ORMED BY: [place] [address] PATHOLOGIST SWAGING MACHINE ADJUSTER ADRIENNE DRAPER M.D. Performed By: #### C MP, CBC, CRP, ESR #### [address] #### ASO, EBV VCAIGM, EBV VCAIGG, EBVEAG, EBVNA #### [facility] , C-Reactive Protein 1.5 mg/dL High 0.0-0.5 mg/dL [facility] Other Complete Blood Count Auto Di ffon 01-05-2023 Basophils (Bld) [#/Vol] 0.1 10*3/uL Normal 0.0-0.2 [facility] Comment on above: Order Comment: Reaso n for Exam Rash and nonspecific skin eruption Performed By: #### C MP, CBC, CRP, ESR #### [address] #### ASO, EBV VCAIGM, EBV VCAIGG, EBVEAG, EBVNA #### [facility] , Basophils/100 WBC (Bld) 1.4 % Normal . T he [facility] Comment on above: Order Comment: Reaso n for Exam Rash and nonspecific skin eruption Performed By: #### C MP, CBC, CRP, ESR #### [address] #### ASO, EBV VCAIGM, EBV VCAIGG, EBVEAG, EBVNA #### [facility] , Eosinophils (Bld) [#/Vol] 0.2 10*3/uL Normal 0.0-0.45 [facility] Comment on above: Order Comment: Reaso n for Exam Rash and nonspecific skin eruption Performed By: #### C MP, CBC, CRP, ESR #### [address] #### ASO, EBV VCAIGM, EBV VCAIGG, EBVEAG, EBVNA #### [facility] , Eosinophils/100 WBC (Bld) 2.1 % Normal . [facility] Comment on above: Order Comment: Reaso n for Exam Rash and nonspecific skin eruption Performed By: #### C MP, CBC, CRP, ESR #### [address] #### ASO, EBV VCAIGM, EBV VCAIGG, EBVEAG, EBVNA #### [facility] , Erythrocyte distribution width (RBC) [Ratio] 13.5 % Normal 11.9-15.3 [facility] Comment on above: Order Comment: Reaso n for Exam Rash and nonspecific skin eruption Performed By: #### C MP, CBC, CRP, ESR #### [address] #### ASO, EBV VCAIGM, EBV VCAIGG, EBVEAG, EBVNA #### [facility] , Hematocrit (Bld) [Volume fraction] 45.8 % Normal 34.0-46.4 [facility] Comment on above: Order Comment: Reaso n for Exam Rash and nonspecific skin eruption Performed By: #### C MP, CBC, CRP, ESR #### [address] #### ASO, EBV VCAIGM, EBV VCAIGG, EBVEAG, EBVNA #### [facility] , Hemoglobin (Bld) [Mass/Vol] 16.3 g/dL High 11.8-15.4 [facility] Comment on above: Order Comment: Reaso n for Exam Rash and nonspecific skin eruption Performed By: #### C MP, CBC, CRP, ESR #### [place] [address] [place] #### ASO, EBV VCAIGM, EBV VCAIGG, EBVEAG, EBVNA #### [facility] , Lymphocytes (Bld) [#/Vol] 2.1 10*3/uL Normal 1.00-4.8 [facility] Comment on above: Order Comment: Reaso n for Exam Rash and nonspecific skin eruption Performed By: #### C MP, CBC, CRP, ESR #### [address] #### ASO, EBV VCAIGM, EBV VCAIGG, EBVEAG, EBVNA #### [facility] , Lymphocytes/100 WBC (Bld) 24.7 % Normal . [facility] Comment on above: Order Comment: Reaso n for Exam Rash and nonspecific skin eruption Performed By: #### C MP, CBC, CRP, ESR #### [address] #### ASO, EBV VCAIGM, EBV VCAIGG, EBVEAG, EBVNA #### [facility] , MCH (RBC) [Entitic mass] 30.2 pg Normal 24.7-34.3 [facility] Comment on above: Order Comment: Reaso n for Exam Rash and nonspecific skin eruption Performed By: #### C MP, CBC, CRP, ESR #### [address] #### ASO, EBV VCAIGM, EBV VCAIGG, EBVEAG, EBVNA #### [facility] , MCV (RBC) [Entitic vol] 85.0 fL Normal 80-100 T he [facility] Comment on above: Order Comment: Reaso n for Exam Rash and nonspecific skin eruption Performed By: #### C MP, CBC, CRP, ESR #### [place] [address] [place] #### ASO, EBV VCAIGM, EBV VCAIGG, EBVEAG, EBVNA #### [facility] , Mean Corpuscular HGB Conc 35.5 g/dL High 32.0-35.0 [facility] Comment on above: Order Comment: Reaso n for Exam Rash and nonspecific skin eruption Performed By: #### C MP, CBC, CRP, ESR #### [address] #### ASO, EBV VCAIGM, EBV VCAIGG, EBVEAG, EBVNA #### [facility] , Monocytes (Bld) [#/Vol] 0.6 10*3/uL Normal 0.0-0.8 [facility] Comment on above: Order Comment: Reaso n for Exam Rash and nonspecific skin eruption Performed By: #### C MP, CBC, CRP, ESR #### [address] #### ASO, EBV VCAIGM, EBV VCAIGG, EBVEAG, EBVNA #### [facility] , Monocytes/100 WBC (Bld) 7.0 % Normal . T [facility] Comment on above: Order Comment: Reaso n for Exam Rash and nonspecific skin eruption Performed By: #### C MP, CBC, CRP, ESR #### [address] #### ASO, EBV VCAIGM, EBV VCAIGG, EBVEAG, EBVNA #### [facility] , Neutrophils (Bld) [#/Vol] 5.4 10*3/uL Normal 1.8-7.7 [facility] Comment on above: Order Comment: Reaso n for Exam Rash and nonspecific skin eruption Performed By: #### C MP, CBC, CRP, ESR #### [place] [address] [place] #### ASO, EBV VCAIGM, EBV VCAIGG, EBVEAG, EBVNA #### [facility] , Neutrophils/100 WBC (Bld) 64.8 % Normal . [facility] Comment on above: Order Comment: Reaso n for Exam Rash and nonspecific skin eruption Performed By: #### C MP, CBC, CRP, ESR #### [facility] [address] #### ASO, EBV VCAIGM, EBV VCAIGG, EBVEAG, EBVNA #### [facility] , NRBC% 0.5 /100{WBC} Normal 0-0.5 [facility] Comment on above: Order Comment: Reaso n for Exam Rash and nonspecific skin eruption Performed By: #### C MP, CBC, CRP, ESR #### [address] #### ASO, EBV VCAIGM, EBV VCAIGG, EBVEAG, EBVNA #### [facility] , Platelet mean volume (Bld) [Entitic vol] 7.9 fL Normal 6.3-10.7 [facility] Comment on above: Order Comment: Reaso n for Exam Rash and nonspecific skin eruption Performed By: #### C MP, CBC, CRP, ESR #### [address] #### ASO, EBV VCAIGM, EBV VCAIGG, EBVEAG, EBVNA #### [facility] , Platelets (Bld) [#/Vol] 302 10*3/uL Normal 150-450 [facility] Other Comment on above: Order Comment: Reaso n for Exam Rash and nonspecific skin eruption Performed By: #### C MP, CBC, CRP, ESR #### [place] [address] [place] #### ASO, EBV VCAIGM, EBV VCAIGG, EBVEAG, EBVNA #### [facility] , RBC (Bld) [#/Vol] 5.39 10*6/uL High 3.60-5.00 [facility] Other Comment on above: Order Comment: Reaso n for Exam Rash and nonspecific skin eruption Performed By: #### C MP, CBC, CRP, ESR #### [place] [address] [place] #### ASO, EBV VCAIGM, EBV VCAIGG, EBVEAG, EBVNA #### [facility] , WBC (Bld) [#/Vol] 8.4 10*3/uL Normal 3.8-11.6 [facility] Comment on above: Order Comment: Reaso n for Exam Rash and nonspecific skin eruption Performed By: #### C MP, CBC, CRP, ESR #### [facility] [address] #### ASO, EBV VCAIGM, EBV VCAIGG, EBVEAG, EBVNA #### [facility] , Basophils (Bld) [#/Vol] 0.478721380 10*3/uL Normal 0.0-0.2 10*3/uL [facility] Other Basophils/100 WBC (Bld) 1.400 % . % [facility] [employer] Other Eosinophils (Bld) [#/Vol] 0.478835220 10*3/uL Normal 0.0-0.45 10*3/uL [facility] Other Eosinophils/100 WBC (Bld) 2.100 % . % [facility] Other Erythrocyte distribution width (RBC) [Ratio] 13.500 % Normal 11.9-15.3 % [facility] Other Hematocrit (Bld) [Volume fraction] 45.800 % Normal 34.0-46.4 % [facility] Other Hemoglobin (Bld) [Mass/Vol] 16.627789 g/dL High 11.8-15.4 g/dL [facility] Other Lymphocytes (Bld) [#/Vol] 2.588574839 10*3/uL Normal 1.00-4.8 10*3/uL [facility] Other Lymphocytes/100 WBC (Bld) 24.700 % . % [facility] Other MCH (RBC) [Entitic mass] 30.2000 pg Normal 24.7-34.3 pg [facility] Other MCV (RBC) [Entitic vol] 85.0000 fL Normal 80-100 fL N [facility] [employer] Other Monocytes (Bld) [#/Vol] 0.629151991 10*3/uL Normal 0.0-0.8 10*3/uL [facility] Other Monocytes/100 WBC (Bld) 7.000 % . % [facility] [employer] Other Neutrophils (Bld) [#/Vol] 5.814049683 10*3/uL Normal 1.8-7.7 10*3/uL [facility] Other Neutrophils/100 WBC (Bld) 64.800 % . % [facility] Other Platelet mean volume (Bld) [Entitic vol] 7.9000 fL Normal 6.3-10.7 fL [facility] Other WBC (Bld) [#/Vol] 8.933410903 10*3/uL Normal 3.8 -11.6 10*3/uL [facility] Other Complete Blood Count Auto Diff 8.4 10*3/uL Normal 3.8-11.6 10*3/uL [facility] Other Complete Blood Count Auto Diff 35.5 g/dL High 32.0-35.0 g/dL [facility] Other Complete Blood Count Auto Diff 0.5 /100{WBC} Normal 0-0.5 /100{WBC} [facility] Other Comprehensive Metabolic Pane yadira 01-05-2023 Albumin [Mass/Vol] 4.8 g/dL Normal 3.5-5.7 [facility] Comment on above: Order Comment: Reaso n for Exam Rash and nonspecific skin eruption Performed By: #### C MP, CBC, CRP, ESR #### [place] [address] [place] #### ASO, EBV VCAIGM, EBV VCAIGG, EBVEAG, EBVNA #### [facility] , Albumin/Globulin [Mass ratio] 1.8 {ratio} Normal [facility] Other Comment on above: Order Comment: Reaso n for Exam Rash and nonspecific skin eruption Performed By: #### C MP, CBC, CRP, ESR #### [address] #### ASO, EBV VCAIGM, EBV VCAIGG, EBVEAG, EBVNA #### [facility] , ALP [Catalytic activity/Vol] 64 U/L Normal 34-104 [facility] Other Comment on above: Order Comment: Reaso n for Exam Rash and nonspecific skin eruption Performed By: #### C MP, CBC, CRP, ESR #### [address] #### ASO, EBV VCAIGM, EBV VCAIGG, EBVEAG, EBVNA #### [facility] , ALT [Catalytic activity/Vol] 13 U/L Normal 7-52 [facility] Other Comment on above: Order Comment: Reaso n for Exam Rash and nonspecific skin eruption Performed By: #### C MP, CBC, CRP, ESR #### [facility] [address] [place] [address] [place] #### ASO, EBV VCAIGM, EBV VCAIGG, EBVEAG, EBVNA #### [facility] , Anion gap [Moles/Vol] 26.8 mmol/L High 6.0-15.0 [facility] Comment on above: Order Comment: Reaso n for Exam Rash and nonspecific skin eruption Performed By: #### C MP, CBC, CRP, ESR #### [facility] [address] [place] [address] [place] #### ASO, EBV VCAIGM, EBV VCAIGG, EBVEAG, EBVNA #### [facility] , AST [Catalytic activity/Vol] 25 U/L Normal 13-39 [facility] [employer] Other Comment on above: Order Comment: Reaso n for Exam Rash and nonspecific skin eruption Performed By: #### C MP, CBC, CRP, ESR #### [address] #### ASO, EBV VCAIGM, EBV VCAIGG, EBVEAG, EBVNA #### [facility] , Bilirubin [Mass/Vol] 0.4 mg/dL Normal 0.3-1.0 [facility] Comment on above: Order Comment: Reaso n for Exam Rash and nonspecific skin eruption Performed By: #### C MP, CBC, CRP, ESR #### [address] #### ASO, EBV VCAIGM, EBV VCAIGG, EBVEAG, EBVNA #### [facility] , Calcium [Mass/Vol] 10.1 mg/dL Normal 8.6-10.3 [facility] Comment on above: Order Comment: Reaso n for Exam Rash and nonspecific skin eruption Performed By: #### C MP, CBC, CRP, ESR #### [place] [address] [place] #### ASO, EBV VCAIGM, EBV VCAIGG, EBVEAG, EBVNA #### [facility] , Chloride [Moles/Vol] 101 mmol/L Normal 98-107 [facility] [employer] [employer] Other Comment on above: Order Comment: Reaso n for Exam Rash and nonspecific skin eruption Performed By: #### C MP, CBC, CRP, ESR #### [place] [address] [place] #### ASO, EBV VCAIGM, EBV VCAIGG, EBVEAG, EBVNA #### [facility] , CO2 [Moles/Vol] 17.7 mmol/L Low 21.0-31.0 [facility] Comment on above: Order Comment: Reaso n for Exam Rash and nonspecific skin eruption Performed By: #### C MP, CBC, CRP, ESR #### [place] [address] [place] #### ASO, EBV VCAIGM, EBV VCAIGG, EBVEAG, EBVNA #### [facility] , Creatinine [Mass/Vol] 1.21 mg/dL High 0.60-1.20 [facility] Comment on above: Order Comment: Reaso n for Exam Rash and nonspecific skin eruption Performed By: #### C MP, CBC, CRP, ESR #### [address] #### ASO, EBV VCAIGM, EBV VCAIGG, EBVEAG, EBVNA #### [facility] , GFR/1.73 sq M.predicted MDRD (S/P/Bld) [Vol rate/Area] 54.600 mL/min/{1.73_m2} Normal [facility] Other Comment on above: Order Comment: Reaso n for Exam Rash and nonspecific skin eruption Performed By: #### C MP, CBC, CRP, ESR #### [address] #### ASO, EBV VCAIGM, EBV VCAIGG, EBVEAG, EBVNA #### [facility] , Globulin (S) [Mass/Vol] 2.6 g/dL Normal [facility] Comment on above: Order Comment: Reaso n for Exam Rash and nonspecific skin eruption Performed By: #### C MP, CBC, CRP, ESR #### [place] [address] [place] #### ASO, EBV VCAIGM, EBV VCAIGG, EBVEAG, EBVNA #### [facility] , Glucose [Mass/Vol] 132 mg/dL High 70-100 [facility] Other Comment on above: Order Comment: Reaso n for Exam Rash and nonspecific skin eruption Result Comment: Penelope Glucose Reference Range is dependent on time and content of last meal. Glucose of more than 200 mg/dL in a nonstressed, ambulatory subject supports the diagnosis of Diabetes Mellitus. ADA recommended reference range Performed By: #### C MP, CBC, CRP, ESR #### [place] [address] [place] #### ASO, EBV VCAIGM, EBV VCAIGG, EBVEAG, EBVNA #### [facility] , Potassium [Moles/Vol] 3.5 mmol/L Normal 3.5-5.1 [facility] Comment on above: Order Comment: Reaso n for Exam Rash and nonspecific skin eruption Performed By: #### C MP, CBC, CRP, ESR #### [place] [address] [place] #### ASO, EBV VCAIGM, EBV VCAIGG, EBVEAG, EBVNA #### [facility] , Protein [Mass/Vol] 7.4 g/dL Normal 6.4-8.9 [facility] Comment on above: Order Comment: Reaso n for Exam Rash and nonspecific skin eruption Performed By: #### C MP, CBC, CRP, ESR #### [place] [address] [place] #### ASO, EBV VCAIGM, EBV VCAIGG, EBVEAG, EBVNA #### [facility] , Sodium [Moles/Vol] 142 mmol/L Normal 136-145 [facility] Other Comment on above: Order Comment: Reaso n for Exam Rash and nonspecific skin eruption Performed By: #### C MP, CBC, CRP, ESR #### [place] [address] [place] #### ASO, EBV VCAIGM, EBV VCAIGG, EBVEAG, EBVNA #### [facility] , Urea nitrogen [Mass/Vol] 21 mg/dL Normal 7-25 [facility] Other Comment on above: Order Comment: Reaso n for Exam Rash and nonspecific skin eruption Performed By: #### C MP, CBC, CRP, ESR #### [facility] [address] [place] [address] #### ASO, EBV VCAIGM, EBV VCAIGG, EBVEAG, EBVNA #### [facility] , Albumin [Mass/Vol] 4.510842 g/dL Normal 3.5-5.7 g/dL N [facility] [employer] Other Bilirubin [Mass/Vol] 0.8565522 mg/dL Normal 0.3- 1.0 mg/dL [facility] Other Calcium [Mass/Vol] 10.6459763 mg/dL Normal 8.6-1 0.3 mg/dL [facility] Other CO2 [Moles/Vol] 17.57626467 mmol/L Low 21.0-3 1.0 mmol/L [facility] Other Creatinine [Mass/Vol] 1.82749005 mg/dL High 0. 60-1.20 mg/dL [facility] Other Potassium [Moles/Vol] 3.33893100 mmol/L Normal 3 .5-5.1 mmol/L [facility] Other Protein [Mass/Vol] 7.921694 g/dL Normal 6.4-8.9 g/dL N [employer] Other Comprehensive Metabolic Panel 2.6 g/dL [facility] Other EBV Ab VCA, IgGon 01-05-2023 EBV Ab VCA, IgG >600.0 High 0.0-17.9 [facility] Comment on above: Order Comment: Reaso n for Exam Rash and nonspecific skin eruption Result Comment: Nega tive <18.0 Equivocal 18.0 - 21.9 Positive >21.9 Performed By: #### C MP, CBC, CRP, ESR #### [address] #### ASO, EBV VCAIGM, EBV VCAIGG, EBVEAG, EBVNA #### [facility] , EBV Ab VCA, IgG >600.0 High 0.0-17.9 [employer] [facility] [employer] Other EBV Ab VCA, IgMon 01-05-2023 EBV Ab VCA, IgM <36.0 Normal 0.0-35.9 [facility] Comment on above: Order Comment: Reaso n for Exam Rash and nonspecific skin eruption Result Comment: Nega tive <36.0 Equivocal 36.0 - 43.9 Positive >43.9 Performed at: [facility] [id number] Tool Drawing Checker: Kings Robles PhD, Phone: [phone] PERFORMED BY: [place] [address] PATHOLOGIST SWAGING MACHINE ADJUSTER ADRIENNE DRAPER M.D. Performed By: #### C MP, CBC, CRP, ESR #### [address] #### ASO, EBV VCAIGM, EBV VCAIGG, EBVEAG, EBVNA #### [facility] , EBV Ab VCA, IgM <36.0 0.0-35.9 [facility] [employer] Other EBV Nuclear Antigen Abs, IgG on 01-05-2023 EBV Nuclear Antigen Abs, IgG >600.0 High 0.0-17.9 [facility] Comment on above: Order Comment: Reaso n for Exam Rash and nonspecific skin eruption Result Comment: Nega tive <18.0 Equivocal 18.0 - 21.9 Positive >21.9 Performed By: #### C MP, CBC, CRP, ESR #### [place] [address] [place] #### ASO, EBV VCAIGM, EBV VCAIGG, EBVEAG, EBVNA #### [facility] , Car-Hubbard Virus Early Ag Abon 01-05-2023 Car-Hubbard Virus Early Ag Ab >150.0 High 0.0-8.9 [place] [employer] Other Car-Hubbard Virus Early Robert GGon 01-05-2023 Car-Hubbard Virus Early AgIGG >150.0 High 0.0-8.9 [facility] Comment on above: Order Comment: Reaso n for Exam Rash and nonspecific skin eruption Result Comment: Hepa titis A, Hepatitis C and HIV antibodies may cross-react with this assay. Negative < 9.0 Equivocal 9.0 - 10.9 Positive >10.9 Performed By: #### C MP, CBC, CRP, ESR #### [facility] [address] [place] [address] #### ASO, EBV VCAIGM, EBV VCAIGG, EBVEAG, EBVNA #### [facility] , Erythrocyte Sedimentation Ra melinda 01-05-2023 ESR (Bld) [Velocity] 10 mm/h Normal 0-29 [facility] [employer] Other Comment on above: Order Comment: Reaso n for Exam Rash and nonspecific skin eruption Result Comment: PERF ORMED BY: [place] [address] PATHOLOGIST SWAGING MACHINE ADJUSTER ADRIENNE DRAPER M.D. Performed By: #### C MP, CBC, CRP, ESR #### [facility] [address] [place] [address] #### ASO, EBV VCAIGM, EBV VCAIGG, EBVEAG, EBVNA #### [facility] , Lab Reportson 12-27-2022 Lab Reports [id number] Normal [facility] Family Medicine Office/Clini c Noteon 12-13-2022 Family [...] Urnls Dip Stick Non-Auto w/o Micrscpy POC 18635 2. 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: Scarlet fever with other complications) Orders: amlodipine, 10 mg = 1 tab(s), Oral, Daily, # 90 tab(s), Refills(s) 3, Pharmacy: [facility], 157.5, cm, 12/13/22 15:39:00 EDT, Height/Length Dosing, 93.9, kg, 12/13/22 15:39:00 EDT, Weight Dosing cefdinir, 300 mg = 1 cap(s), Oral, q12hr, X 10 day(s), # 20 cap(s), Refills(s) 0, Pharmacy: [facility] #[id number], 157.5, cm, 12/13/22 15:39:00 EDT, Height/Length Dosing, 93.9, kg, 12/13/22 15:39:00 EDT, Weight Dosing citalopram, 20 mg = 1 tab(s), Oral, Daily, # 90 tab(s), Refills(s) 3, Pharmacy: [facility], 157.5, cm, 12/13/22 15:39:00 EDT, Height/Length Dosing, 93.9, kg, 12/13/22 15:39:00 EDT, Weight Dosing dapagliflozin, 5 mg = 1 tab(s), Oral, Daily, # 90 tab(s), Refills(s) 3, Pharmacy: [facility], 157.5, cm, 12/13/22 15:39:00 EDT, [...] urination Hidrade (more content not included)... Normal [facility] Comment on above: Result Comment: Elec tronically Signed By: VINNIE DOVER, ALBERT E\.br\Date and Time Signed: 12/13/22 16:36 EDT CBC AUTO DIFFon 12-10-2022 BASO # 0.1 103/ul Normal 0.0-0.1 [facility] Comment on above: Performed By: #### C BC #### [facility] [address] [address] [address] Hadley Keating Basophils/100 WBC (Bld) 0.7 % Normal 0.2-2.0 [facility] Comment on above: Performed By: #### C BC #### [facility] [address] [place] [address] Dr. Hadley Keating EO # 0.3 103/ul Normal 0.0-0.7 [facility] Comment on above: Performed By: #### C BC #### [facility] [address] [place] [address] Dr. Hadley Keating Eosinophils/100 WBC (Bld) 4.7 % Normal 0.9-7.0 [facility] Comment on above: Performed By: #### C BC #### [facility] [address] [place] [address] Dr. Hadley Keating Erythrocyte distribution width (RBC) [Ratio] 12.6 % Normal 11.0-15.0 [facility] Comment on above: Performed By: #### C BC #### [facility] [address] [place] [address] Dr. Hadley Keating Hematocrit (Bld) [Volume fraction] 45.4 % Normal 36.0-48.0 [facility] Comment on above: Performed By: #### C BC #### [facility] [address] [place] [address] Dr. Hadley Keating Hemoglobin (Bld) [Mass/Vol] 15.4 g/dL Normal 12.0-16.0 [facility] Comment on above: Performed By: #### C BC #### [facility] [address] [place] [address] Dr. Hadley Keating IG # 0.03 10e3/ul Normal 0.00-0.03 [facility] Comment on above: Performed By: #### C BC #### [facility] [address] [place] [address] Dr. Hadley Keating IG % 0.4 % Normal 0.0-0.5 [facility] Comment on above: Performed By: #### C BC #### [facility] [address] [place] [address] Dr. Hadley Keating LYMPH # 2.3 103/ul Normal 1.2-3.8 [facility] Comment on above: Performed By: #### C BC #### [facility] [address] [place] [address] Dr. Hadley Keating Lymphocytes/100 WBC (Bld) 33.6 % Normal 20.5-60.0 [facility] Comment on above: Performed By: #### C BC #### [facility] [address] [place] [address] Dr. Hadley Keating MANUAL DIFF REQ NO Normal [facility] Comment on above: Performed By: #### C BC #### [facility] [address] [place] [address] Dr. Hadley Keating MCH (RBC) [Entitic mass] 29.6 pg Normal 26.7-34.0 [facility] Comment on above: Performed By: #### C BC #### [facility] [address] [place] [address] Dr. Hadley Keating MCHC (RBC) [Mass/Vol] 33.9 g/dL Normal 29.9-35.2 [facility] Comment on above: Performed By: #### C BC #### [facility] [address] [place] [address] Dr. Hadley Keating MCV (RBC) [Entitic vol] 87.1 fL Normal 81.0-99.0 [facility] Comment on above: Performed By: #### C BC #### [facility] [address] [place] [address] Dr. Hadley Keating MONO # 0.6 103/ul Normal 0.3-0.8 [facility] Comment on above: Performed By: #### C BC #### [facility] [address] [place] [address] Dr. Hadley Keating Monocytes/100 WBC (Bld) 8.0 % Normal 1.7-12.0 [facility] Comment on above: Performed By: #### C BC #### [facility] [address] [place] [address] Dr. Hadley Keating NEUT # 3.7 103/ul Normal 1.4-6.5 [facility] Comment on above: Performed By: #### C BC #### [facility] [address] [place] [address] Dr. Hadley Keating Neutrophils/100 WBC (Bld) 52.6 % Normal 43.0-75.0 [facility] Comment on above: Performed By: #### C BC #### [facility] [address] [place] [address] Dr. Hadley Keating Platelet mean volume (Bld) [Entitic vol] 9.3 fL Critically low 9.5-13.5 [facility] Comment on above: Performed By: #### C BC #### [facility] [address] [place] [address] Dr. Hadley Keating PLT 238 103/ul Normal 150-450 [facility] Comment on above: Performed By: #### C BC #### [facility] [address] [place] [address] Dr. Hadley Keating RBC 5.21 106/ul Normal 4.20-5.40 [facility] Comment on above: Performed By: #### C BC #### [facility] [address] [place] [address] Dr. Hadley Keating WBC 7.0 103/ul Normal 4.0-11.0 [facility] Comment on above: Performed By: #### C BC #### [facility] [address] [place] [address] Dr. Hadley Keating CRPon 12-10-2022 CRP [Mass/Vol] mg/L Normal <=1.0 [facility] Comment on above: Performed By: #### F T4 #### [facility] [address] [place] [address] Dr. Hadley Keating PROF CHEM 8 (BAS METB)on Anion gap [Moles/Vol] 16.6 mmol/L Normal [facility] Comment on above: Performed By: #### F T4 #### [facility] [address] [place] [address] Dr. Hadley Keating Calcium [Mass/Vol] 8.7 mg/dL Normal 8.5-10.1 [facility] Comment on above: Performed By: #### F T4 #### [facility] [address] [place] [address] Dr. Hadley Keating Chloride [Moles/Vol] 102 mmol/L Normal 98-107 [facility] Comment on above: Performed By: #### F T4 #### [facility] [address] [address] [address] Hadley Keating CO2 [Moles/Vol] 23.8 mmol/L Normal 21.0-32.0 [facility] Comment on above: Performed By: #### F T4 #### [facility] [address] [address] [address] Hadley Keating Creatinine [Mass/Vol] 1.01 mg/dL Normal 0.55-1.02 [facility] Comment on above: Performed By: #### F T4 #### [facility] [address] [place] [address] Dr. Hadley Keating EGFR-AF SUDANESE >60 Normal >=60 [facility] Comment on above: Performed By: #### F T4 #### [facility] [address] [address] [address] Hadley Keating EGFR-NON AF SUDANESE 58 mL/min/1.73m2 Critically low >=60 [facility] Comment on above: Performed By: #### F T4 #### [facility] [address] [place] [address] Dr. Hadley Keating Glucose [Mass/Vol] 244 mg/dL Critically high 74-106 [facility] Comment on above: Performed By: #### F T4 #### [facility] [address] [address] [address] Hadley Keating Potassium [Moles/Vol] 3.4 mmol/L Critically low 3.5-5.1 [facility] Comment on above: Performed By: #### F T4 #### [facility] [address] [address] [address] Hadley Keating Sodium [Moles/Vol] 139 mmol/L Normal 136-145 [facility] Comment on above: Performed By: #### F T4 #### [facility] [address] [address] [address] Hadley Keating Urea nitrogen [Mass/Vol] 21.0 mg/dL Critically high 7.0-18.0 [facility] Comment on above: Performed By: #### F T4 #### [facility] [address] [address] [address] Hadley Keating Urea nitrogen/Creatinine [Mass ratio] 20.8 mg/mg Normal [facility] Comment on above: Performed By: #### F T4 #### [facility] [address] [address] [address] Hadley Keating [facility] 10 mm/hr Normal <=30 [facility] Comment on above: Performed By: #### S EDR #### [facility] [address] [address] [address] Hadley Keating Urinalysis - AUTOMATEDon Appearance (U) cloudy [employer] Other Bilirubin Ql (U) Negative [employer] Other Color (U) color [facility] Other Glucose Ql (U) 250 [employer] Other Hemoglobin Ql (U) trace-intact [facility] Other Ketones Ql (U) Negative [employer] Other Leukocyte esterase Test strip Ql (U) SMALL [facility] Other Nitrite Ql (U) Negative [employer] Other pH (U) 5.5 [pH] [facility] Other Protein Ql (U) Negative [employer] Other Specific gravity (U) [Rel density] 1.030 [facility] Other Urobilinogen (U) [Mass/Vol] 0.2 mg/dL [facility] Other Urinalysis - AUTOMATED No [id number] Other Urine Cultureon 05-12-2022 Urine Culture >100,000 [facility] Other Urine Culture <16 Susceptible [employer] Other Urine Culture 16 Intermediate [employer] Other Urine Culture <4 Susceptible [employer] Other Urine Culture <2 Susceptible [employer] Other Urine Culture <1 Susceptible [employer] Other Urine Culture <0.5 Susceptible [employer] Other Urine Culture <32 Susceptible [employer] Other Urine Culture >2/38 Resistant [facility] Other Urine culture routineOrdered By: ADRIANA GEORGES on 05-12-2022 Bacteria identified Cx Nom (U) Klebsiella pneumoniae [facility] Follitropin [Units/volume] i n Serum or PlasmaOrdered By: Sheri Kovacs on 05-10-2022 Follitropin Qn 8.3 m[IU]/mL [facility] Comment on above: FEMALE NORMALS (LILIANA ENOPAUSE) MID-FOLLICULAR PHASE: 3.9-8.8 mIU/mL MID-CYCLE PEAK: 4.5-22.5 mIU/mL MID-LUTEAL PHASE: 1.8-5.1 mIU/mLFEMALE NORMALS (POSTMENOPAUSE): 16.7-113.6 mIU/mLMALE NORMALS: 1.3-19.3 mIU/mL Serum or plasma estradiol (E 2) measurement (mass/volume)Ordered By: Sheri Kovacs on 05-10-2022 E2 [Mass/Vol] 22.4 pg/mL . [facility] Comment on above: Adult Female: Follic ular phase 12.5 - 166.0 Ovulation phase 85.8 - 498.0 Luteal phase 43.8 - 211.0 Postmenopausal <6.0 - 54.7 1st trimester 215.0 - >4300.0Roche ECLIA methodologyPerformed at: [facility] [place], [place] [id number] Director: Kings Robles PhD, Phone: [phone] Serum or plasma lutropin shira surement (units/volume)Ordered By: Sheri Bethanie on 05-10-2022 Lutropin Qn 7.4 m[IU]/mL . [facility] Comment on above: Adult Female: Follic ular phase 2.4 - 12.6 Ovulation phase 14.0 - 95.6 Luteal phase 1.0 - 11.4 Postmenopausal 7.7 - 58.5 REVERSE T3on 03-25-2022 Reverse T3, Serum 21.2 ng/dL Normal 9.2-24.1 [facility] Comment on above: Result Comment: This test was developed and its performance characteristics determined by [facility]. It has not been cleared or approved by the Food and Drug Administration. Performed By: #### R EVRT3 #### [facility] [address] [place] [address] Dr. Hadley Keating SARS-CoV-2 (COVID-19) RNA NA A+probe Ql (Resp)on 03-22-2022 SARS-CoV-2 (COVID-19) RNA VON+probe Ql (Unsp spec) Negative [facility] Other T3, TOTAL (TRIIODOTHYRONINE) on 03-20-2022 T3, TOTAL 185 ng/dL Critically high 71-180 [facility] Comment on above: Performed By: #### F T4 #### [facility] [address] [place] [address] Dr. Hadley Keating FREE T3on 03-19-2022 FREE T3 3.39 pg/mlL Normal 2.18-3.98 [facility] Comment on above: Performed By: #### F T4 #### [facility] [address] [address] [address] Hadley Keating FREE T4on 03-19-2022 Free T4 [Mass/Vol] 1.06 ng/dL Normal 0.76-1.46 [facility] Comment on above: Performed By: #### F T4 #### [facility] [address] [place], [place] [id number] Dr. Hadley Keating TSHon 03-19-2022 TSH 0.636 uIU/mL Normal 0.358-3.740 [facility] Comment on above: Performed By: #### C BC #### [facility] [address] [place] [address] Dr. Hadley Keating NM STRESS/REST MULTIon 02-08 NM STRESS/REST MULTI Patient: MARIA M MCKEON Exam Date: 02/08/2022 : 1970 Gender:F Ordering : DR ALBERT CHRISTIANSON . Admission #: [id number] Family : Order #: [id number] CLICK HERE TO VIEW EXAM RADIOLOGY REPORT [...] MD on 02/10/2022 at 14:16 Normal [facility] FREE T3on 01-20-2022 FREE T3 2.79 pg/mlL Normal 2.18-3.98 [facility] Comment on above: Performed By: #### F T4 #### [facility] [address] [place] [address] Dr. Hadley Keating FREE T4on 01-20-2022 Free T4 [Mass/Vol] 1.00 ng/dL Normal 0.76-1.46 [facility] Comment on above: Performed By: #### F T4 #### [facility] [address] [place] [address] Dr. Hadley Keating GLYCOHEMOGLOBIN A1Con 2021 ADA RECOMMENDATION SEE BELOW Normal [facility] Comment on above: Result Comment: ADA RECOMMENDED LIMIT 4.0 - 6.0 ADA THERAPEUTIC TARGET < 7.0 ACTION SUGGESTED > 7.0 Performed By: #### A 1C #### [facility] [address] [place] [address] Dr. Hadley Keating Glucose [Mass/Vol] 134 mg/dL Normal [facility] Comment on above: Performed By: #### A 1C #### [facility] [address] [place] [address] Dr. Hadley Keating HbA1c (Bld) [Mass fraction] 6.3 % Critically high 4.5-6.2 [facility] Comment on above: Performed By: #### A 1C #### [facility] [address] [place] [address] Dr. Hadley Keating TSHon 01-20-2022 TSH 0.914 uIU/mL Normal 0.358-3.740 [facility] Comment on above: Performed By: #### F T4 #### [facility] [address] [place] [address] Dr. Hadley Keating CBC AUTO DIFFon 12-31-2021 BASO # 0.1 103/ul Normal 0.0-0.1 [facility] Comment on above: Performed By: #### C BC #### [facility] [address] [place] [address] Dr. Hadley Keating Basophils/100 WBC (Bld) 0.6 % Normal 0.2-2.0 [facility] Comment on above: Performed By: #### C BC #### [facility] [address] [place] [address] Dr. Hadley Keating EO # 0.3 103/ul Normal 0.0-0.7 [facility] Comment on above: Performed By: #### C BC #### [facility] [address] [place] [address] Dr. Hadley Keating Eosinophils/100 WBC (Bld) 3.4 % Normal 0.9-7.0 [facility] Comment on above: Performed By: #### C BC #### [facility] [address] [place] [address] Dr. Hadley Keating Erythrocyte distribution width (RBC) [Ratio] 13.1 % Normal 11.0-15.0 [facility] Comment on above: Performed By: #### C BC #### [facility] [address] [place] [address] Dr. Hadley Keating Hematocrit (Bld) [Volume fraction] 46.2 % Normal 36.0-48.0 [facility] Comment on above: Performed By: #### C BC #### [facility] [address] [place] [address] Dr. Hadley Keating Hemoglobin (Bld) [Mass/Vol] 15.7 g/dL Normal 12.0-16.0 [facility] Comment on above: Performed By: #### C BC #### [facility] [address] [place] [address] Dr. Hadley Keating IG # 0.02 10e3/ul Normal 0.00-0.03 [facility] Comment on above: Performed By: #### C BC #### [facility] [address] [place] [address] Dr. Hadley Keating IG % 0.2 % Normal 0.0-0.5 [facility] Comment on above: Performed By: #### C BC #### [facility] [address] [place] [address] Dr. Hadley Keating LYMPH # 2.3 103/ul Normal 1.2-3.8 [facility] Comment on above: Performed By: #### C BC #### [facility] [address] [place] [address] Dr. Hadley Keating Lymphocytes/100 WBC (Bld) 27.3 % Normal 20.5-60.0 [facility] Comment on above: Performed By: #### C BC #### [facility] [address] [place] [address] Dr. Hadley Keating MANUAL DIFF REQ NO Normal [facility] Comment on above: Performed By: #### C BC #### [facility] [address] [place] [address] Dr. Hadley Keating MCH (RBC) [Entitic mass] 29.3 pg Normal 26.7-34.0 [facility] Comment on above: Performed By: #### C BC #### [facility] [address] [place] [address] Dr. Hadley Keating MCHC (RBC) [Mass/Vol] 34.0 g/dL Normal 29.9-35.2 [facility] Comment on above: Performed By: #### C BC #### [facility] [address] [place] [address] Dr. Hadley Keating MCV (RBC) [Entitic vol] 86.2 fL Normal 81.0-99.0 [facility] Comment on above: Performed By: #### C BC #### [facility] [address] [place] [address] Dr. Hadley Keating MONO # 0.6 103/ul Normal 0.3-0.8 [facility] Comment on above: Performed By: #### C BC #### [facility] [address] [place] [address] Dr. Hadley Keating Monocytes/100 WBC (Bld) 6.9 % Normal 1.7-12.0 [facility] Comment on above: Performed By: #### C BC #### [facility] [address] [place] [address] Dr. Hadley Keating NEUT # 5.1 103/ul Normal 1.4-6.5 [facility] Comment on above: Performed By: #### C BC #### [facility] [address] [place] [address] Dr. Hadley Keating Neutrophils/100 WBC (Bld) 61.6 % Normal 43.0-75.0 [facility] Comment on above: Performed By: #### C BC #### [facility] [address] [place] [address] Dr. Hadley Keating Platelet mean volume (Bld) [Entitic vol] 9.0 fL Critically low 9.5-13.5 [facility] Comment on above: Performed By: #### C BC #### [facility] [address] [place] [address] Dr. Hadley Keating PLT 272 103/ul Normal 150-450 [facility] Comment on above: Performed By: #### C BC #### [facility] [address] [place] [address] Dr. Hadley Keating RBC 5.36 106/ul Normal 4.20-5.40 [facility] Comment on above: Performed By: #### C BC #### [facility] [address] [place] [address] Dr. Hadley Keating WBC 8.3 103/ul Normal 4.0-11.0 [facility] Comment on above: Performed By: #### C BC #### [facility] [address] [place] [address] Dr. Hadley Keating CULTURE URINEon 12-31-2021 CULTURE URINE Culture Observations: NO GROWTH. Normal [facility] Comment on above: Performed By: #### F T4 #### [facility] [address] [place] [address] Dr. Hadley Keating ER URINE PROFILEon 2 Bilirubin Ql (U) Negative Normal NEGATIVE [facility] Comment on above: Performed By: #### F T4 #### [facility] [address] [place] [address] Dr. Hadley Keating Clarity (U) CLEAR Normal CLEAR [facility] Comment on above: Performed By: #### F T4 #### [facility] [address] [place] [address] Dr. Hadley Keating Color (U) YELLOW Normal YELLOW [facility] Comment on above: Performed By: #### F T4 #### [facility] [address] [place] [address] Dr. Hadley SUMMERS A micrscopic examination will be performed if indicated. Normal [facility] Comment on above: Performed By: #### F T4 #### [facility] [address] [place] [address] Dr. Hadley Keating Glucose Ql (U) 1000 mg/dl Abnormal NEGATIVE [facility] Comment on above: Performed By: #### F T4 #### [facility] [address] [place] [address] Dr. Hadley Keating Hemoglobin Ql (U) TRACE-INTACT Abnormal NEGATIVE [facility] Comment on above: Performed By: #### F T4 #### [facility] [address] [place] [address] Dr. Hadley Keating Ketones Ql (U) Negative Normal NEGATIVE [facility] Comment on above: Performed By: #### F T4 #### [facility] [address] [place] [address] Dr. Hadley Keating LEUKOCYTES TRACE Abnormal NEGATIVE [facility] Comment on above: Performed By: #### F T4 #### [facility] [address] [place] [address] Dr. Hadley Keating Nitrite Ql (U) Negative Normal NEGATIVE [facility] Comment on above: Performed By: #### F T4 #### [facility] [address] [place] [address] Dr. Hadley Keating pH (U) 5.0 [pH] Normal 5-9 [facility] Comment on above: Performed By: #### F T4 #### [facility] [address] [place] [address] Dr. Hadley Keating SPEC GRAVITY 1.030 Abnormal 1.005-<=1.02 5 [facility] Comment on above: Performed By: #### F T4 #### [facility] [address] [place] [address] Dr. Hadley Keating UA PROTEIN Negative Normal NEGATIVE/ TRACE [facility] Comment on above: Performed By: #### F T4 #### [facility] [address] [place] [address] Dr. Hadley Keating UR MICRO IND INDICATED Normal [facility] Comment on above: Performed By: #### F T4 #### [facility] [address] [place] [address] Dr. Hadley Keating Urobilinogen Qn (U) 0.2 {Kandice'U}/dL Normal 0.2 - 1. 0 [facility] Comment on above: Performed By: #### F T4 #### [facility] [address] [place] [address] Dr. Hadley Keating LACTATE/LACTIC ACIDon 2021 Lactate [Moles/Vol] 1.7 mmol/L Normal 0.4-1.9 [facility] Comment on above: Performed By: #### L ACT #### [facility] [address] [place] [address] Dr. Hadley Keatnig LIPASEon 12-31-2021 Lipase [Catalytic activity/Vol] 105.0 U/L Normal 73.0-393.0 [facility] Comment on above: Performed By: #### L IPA #### [facility] [address] [place] [address] Dr. Hadley Keating PROF 14(COMP METB)on 022 Albumin [Mass/Vol] 4.1 g/dL Normal 3.4-5.0 [facility] Comment on above: Performed By: #### C MP #### [facility] [address] [place] [address] Dr. Hadley Keating Albumin/Globulin [Mass ratio] 1.0 {ratio} Normal [facility] Comment on above: Performed By: #### C MP #### [facility] [address] [place] [address] Dr. Hadley Keating ALP [Catalytic activity/Vol] 63 U/L Normal 46-116 [facility] Comment on above: Performed By: #### C MP #### [facility] [address] [place] [address] Dr. Hadley Keating ALT [Catalytic activity/Vol] 25 U/L Normal 14-59 [facility] [facility] Comment on above: Performed By: #### C MP #### [facility] [address] [address] [address] Hadley Keating Anion gap [Moles/Vol] 15.0 mmol/L Normal Th [facility] Comment on above: Performed By: #### C MP #### [facility] [address] [place] [address] Dr. Hadley Keating AST [Catalytic activity/Vol] 28 U/L Normal 15-37 [facility] Comment on above: Performed By: #### C MP #### [facility] [address] [address] [address] Hadley Keating Calcium [Mass/Vol] 9.4 mg/dL Normal 8.5-10.1 [facility] Comment on above: Performed By: #### C MP #### [facility] [address] [place] [address] Dr. Hadley Keating Chloride [Moles/Vol] 99 mmol/L Normal 98-107 [facility] Comment on above: Performed By: #### C MP #### [facility] [address] [place] [address] Dr. Hadley Keating CO2 [Moles/Vol] 24.1 mmol/L Normal 21.0-32.0 [facility] Comment on above: Performed By: #### C MP #### [facility] [address] [place] [address] Dr. Hadley Keating Creatinine [Mass/Vol] 0.83 mg/dL Normal 0.55-1.02 [facility] Comment on above: Performed By: #### C MP #### [facility] [address] [place] [address] Dr. Hadley Keating EGFR-AF SUDANESE >60 Normal >=60 [facility] Comment on above: Performed By: #### C MP #### [facility] [address] [place] [address] Dr. Hadley Keating EGFR-NON AF SUDANESE >60 Normal >=60 [facility] Comment on above: Performed By: #### C MP #### [facility] [address] [place] [address] Dr. Hadley Keating Globulin (S) [Mass/Vol] 4.1 g/dL Normal [facility] Comment on above: Performed By: #### C MP #### [facility] [address] [place] [address] Dr. Hadley Keating Glucose [Mass/Vol] 121 mg/dL Critically high 74-106 [facility] Comment on above: Performed By: #### C MP #### [facility] [address] [place] [address] Dr. Hadley Keating Potassium [Moles/Vol] 3.1 mmol/L Critically low 3.5-5.1 [facility] Comment on above: Performed By: #### C MP #### [facility] [address] [place] [address] Dr. Hadley Keating Protein [Mass/Vol] 8.2 g/dL Normal 6.4-8.2 [facility] Comment on above: Performed By: #### C MP #### [facility] [address] [place] [address] Dr. Hadley Keating Sodium [Moles/Vol] 135 mmol/L Critically low 136-145 [facility] Comment on above: Performed By: #### C MP #### [facility] [address] [place] [address] Dr. Hadley Keating Urea nitrogen [Mass/Vol] 15.0 mg/dL Normal 7.0-18.0 [facility] Comment on above: Performed By: #### C MP #### [facility] [address] [place] [address] Dr. Hadley Keating Urea nitrogen/Creatinine [Mass ratio] 18.1 mg/mg Normal [facility] Comment on above: Performed By: #### C MP #### [facility] [address] [place] [address] Dr. Hadley Keating URINE MICROSCOPIC ONLYon BACTERIA TRACE Abnormal NONE SEEN [facility] Comment on above: Performed By: #### F T4 #### [facility] [address] [place] [address] Dr. Hadley Keating Bacteria identified Cx Nom (U) INDICATED Normal [facility] Comment on above: Performed By: #### F T4 #### [facility] [address] [place] [address] Dr. Hadley Keating CAST NONE SEEN Normal NONE SEEN [facility] Comment on above: Performed By: #### F T4 #### [facility] [address] [place] [address] Dr. Hadley Keating Crystals LM Nom (Urine sed) NONE SEEN Normal NONE SEEN [facility] Comment on above: Performed By: #### F T4 #### [facility] [address] [place] [address] Dr. Hadley Keating Epithelial cells LM Ql (Urine sed) RARE Normal NONE SEEN /RARE [facility] Comment on above: Performed By: #### F T4 #### [facility] [address] [place] [address] Dr. Hadley Keating MUCOUS NONE SEEN Normal NONE SEEN [facility] Comment on above: Performed By: #### F T4 #### [facility] [address] [place] [address] Dr. Hadley Keating RBC 0-2 Normal 0-2 [facility] Comment on above: Performed By: #### F T4 #### [facility] [address] [place] [address] Dr. Hadley Keating WBC 10-20 Abnormal NONE SEEN [facility] Comment on above: Performed By: #### F T4 #### [facility] [address] [place] [address] Dr. Hadley Keating COVID Quick Testingon 2020 Result Negative [facility] Other Albumin [Mass/volume] in Ser um or PlasmaOrdered By: Tanya Washington on 04-28-2021 Albumin [Mass/Vol] 3.6 g/dL 2.9-4.4 [facility] IgA [Mass/volume] in Serum o r PlasmaOrdered By: Tanya Washington on 04-28-2021 IgA [Mass/Vol] 342 mg/dL 87-352 [facility] IgG [Mass/volume] in Serum o r PlasmaOrdered By: Tanya Washington on 04-28-2021 IgG [Mass/Vol] 1223 mg/dL 586-1602 [facility] IgM [Mass/volume] in Serum o r PlasmaOrdered By: Tanya Washington on 04-28-2021 IgM [Mass/Vol] 33 mg/dL 26-217 [facility] Comment on above: Performed at: [employer] [address] [id number] Director: Kings Robles PhD, Phone: [phone] Immunoglobulin light chains. kappa.free [Mass/volume] in SerumOrdered By: Tanya Washington on 04-28-2021 Immunoglobulin light chains.kappa.free (S) [Mass/Vol] 18.9 mg/L 3.3-19.4 [facility] Immunoglobulin light chains. kappa.free/Immunoglobulin light chains.lambda.free [MassOrdered By: Tanya Washington on 04-28-2021 Immunoglobulin light chains.kappa.free/Immun oglobulin light chains.lambda.free (S) [Mass ratio] 1.39 0.26-1.65 [facility] Comment on above: Performed at: [employer] [address] [id number] Director: Kings Robles PhD, Phone: [phone] Immunoglobulin light chains. lambda.free [Mass/volume] in Serum or PlasmaOrdered By: Tanya Washington on 04-28-2021 Immunoglobulin light chains.lambda.free [Mass/Vol] 13.6 mg/L 5.7-26.3 [facility] No Panel InformationOrdered By: Tanya Washington on 04-28-2021 Protein Electrophoresis M-Anurag Not observed g/dL Not Observed [facility] Protein Electrophoresis Note See comment . [facility] Comment on above: Protein electrophore sis scan will follow via computer,mail, or metalsmith apprentice delivery.Performed at: [employer] [id number] Director: Kings Robles PhD, Phone: [phone] Serum Immunofixation See comment . [facility] Comment on above: No monoclonality det ected. Protein [Mass/volume] in Ser um or PlasmaOrdered By: Tanya Washington on 04-28-2021 Protein [Mass/Vol] 7.1 g/dL 6.0-8.5 [facility] Serum globulin measurement ( mass/volume)Ordered By: Tanya Washington on 04-28-2021 Globulin (S) [Mass/Vol] 3.5 g/dL 2.2-3.9 [facility] Serum or plasma albumin/glob ulin mass ratioOrdered By: Tanya Washington on 04-28-2021 Albumin/Globulin [Mass ratio] 1.0 {ratio} 0.7-1.7 [facility] Serum or plasma alpha 1 glob ulin measurement by electrophoresis (mass/volume)Ordered By: Tanya Washington on 04-28-2021 Alpha 1 globulin Elph [Mass/Vol] 0.3 g/dL 0.0-0.4 [facility] Serum or plasma alpha 2 glob ulin measurement by electrophoresis (mass/volume)Ordered By: Tanya Washington on 04-28-2021 Alpha 2 globulin Elph [Mass/Vol] 0.7 g/dL 0.4-1.0 [facility] Serum or plasma beta globuli n measurement by electrophoresis (mass/volume)Ordered By: Tanya Washington on 04-28-2021 Beta globulin Elph [Mass/Vol] 1.2 g/dL 0.7-1.3 [facility] Serum or plasma gamma globul in measurement by electrophoresis (mass/volume)Ordered By: Tanya Washington on 04-28-2021 Gamma globulin Elph [Mass/Vol] 1.3 g/dL 0.4-1.8 [facility] Albumin [Mass/volume] in Bod y fluidon 11-21-2020 Albumin (Body fld) [Mass/Vol] 4.0 g/dL 3.2-5.5 [facility] Alkaline phosphatase [Enzyma tic activity/volume] in Serum or Plasmaon 11-21-2020 ALP [Catalytic activity/Vol] 68 U/L 32-92 [facility] Aspartate aminotransferase [ Enzymatic activity/volume] in Serum or Plasmaon 11-21-2020 AST [Catalytic activity/Vol] 27 U/L 10-42 [facility] Basophils Auto (Bld) [#/Vol] on 11-21-2020 Basophils (Bld) [#/Vol] 0.0 10*3/uL 0.0-0.2 [facility] Basophils/100 WBC Auto (Bld) on 11-21-2020 Basophils/100 WBC (Bld) 0.3 % . [facility] Bilirubin.total [Mass/volume ] in Serum or Plasmaon 11-21-2020 Bilirubin [Mass/Vol] 0.6 mg/dL 0.3-1.2 [facility] Calcium [Mass/volume] in Ser um or Plasmaon 11-21-2020 Calcium [Mass/Vol] 9.4 mg/dL 8.2-10.2 [facility] Carbon dioxide, total [Moles /volume] in Serum or Plasmaon 11-21-2020 CO2 [Moles/Vol] 21.6 mmol/L 22.0-30.0 [facility] Chloride [Moles/volume] in S sam or Plasmaon 11-21-2020 Chloride [Moles/Vol] 98 mmol/L 95-114 [facility] Creatinine and Glomerular fi ltration rate.predicted panel (S/P/Bld)on 11-21-2020 Creatinine [Mass/Vol] 0.86 mg/dL 0.44-1.03 [facility] Eosinophils Auto (Bld) [#/Vo l]on 11-21-2020 Eosinophils (Bld) [#/Vol] 0.0 10*3/uL 0.0-0.45 [facility] Eosinophils/100 WBC Auto (Bl d)on 11-21-2020 Eosinophils/100 WBC (Bld) 0.1 % . [facility] Erythrocyte distribution wid th Auto (RBC) [Ratio]on 11-21-2020 Erythrocyte distribution width (RBC) [Ratio] 15.0 % 11.9-15.3 [facility] Estimated glomerular filtrat ion rate (GFR) non- Americanon 11-21-2020 GFR/1.73 sq M.predicted among non-blacks MDRD (S/P/Bld) [Vol rate/Area] > 60 mL/Min [facility] Globulin Calc (S) [Mass/Vol] on 11-21-2020 Globulin (S) [Mass/Vol] 3.4 g/dL [facility] Glucose [Mass/volume] in Ser um or Plasmaon 11-21-2020 Glucose [Mass/Vol] 361 mg/dL 70-100 [facility] Comment on above: ADA recommended refe rence rangeRandom Glucose Reference Range is dependent on time and content of last meal. Glucose of more than 200 mg/dL in a nonstressed, ambulatory subject supports the diagnosis of Diabetes Mellitus. Hematocrit Auto (Bld) [Volum e fraction]on 11-21-2020 Hematocrit (Bld) [Volume fraction] 43.8 % 34.0-46.4 [facility] Hemoglobin [Mass/volume] in Bloodon 11-21-2020 Hemoglobin (Bld) [Mass/Vol] 15.2 g/dL 11.8-15.4 [facility] Laboratory - Hematology and Cell countson 11-21-2020 Nucleated RBC/100 WBC (Bld) [Ratio] 0.2 % 0-0.5 [facility] Leukocytes [#/volume] in Blo od by Automated counton 11-21-2020 WBC (Bld) [#/Vol] 7.7 10*3/uL 4.5-11.0 [facility] Lymphocytes Auto (Bld) [#/Vo l]on 11-21-2020 Lymphocytes (Bld) [#/Vol] 1.5 10*3/uL 1.00-4.8 [facility] Lymphocytes/100 WBC Auto (Bl d)on 11-21-2020 Lymphocytes/100 WBC (Bld) 18.8 % . [facility] MCH Auto (RBC) [Entitic mass ]on 11-21-2020 MCH (RBC) [Entitic mass] 29.3 pg 24.7-34.3 [facility] MCHC Auto (RBC) [Mass/Vol]on 11-21-2020 MCHC (RBC) [Mass/Vol] 34.7 g/dL 32.0-35.0 [facility] MCV Auto (RBC) [Entitic vol] on 11-21-2020 MCV (RBC) [Entitic vol] 84.4 fL 80-100 [facility] Monocytes Auto (Bld) [#/Vol] on 11-21-2020 Monocytes (Bld) [#/Vol] 0.3 10*3/uL 0.0-0.8 [facility] Monocytes/100 WBC Auto (Bld) on 11-21-2020 Monocytes/100 WBC (Bld) 3.8 % . [facility] Neutrophils Auto (Bld) [#/Vo l]on 11-21-2020 Neutrophils (Bld) [#/Vol] 5.9 10*3/uL 1.8-7.7 [facility] Neutrophils/100 WBC Auto (Bl d)on 11-21-2020 Neutrophils/100 WBC (Bld) 77.0 % . [facility] No Panel Informationon 11-21 Estimated GFR () > 60 mL/Min [facility] Comment on above: GFR estimated refere nce range: According to KDOQI guidelines, <60 ml/min/1.73m2 is sufficient to diagnose a patient with chronic kidney disease. Pharmacy Creatinine Clearance (Chem 89.66 [facility] Platelet mean volume Auto (B ld) [Entitic vol]on 11-21-2020 Platelet mean volume (Bld) [Entitic vol] 7.3 fL 6.3-10.7 [facility] Platelets Auto (Bld) [#/Vol] on 11-21-2020 Platelets (Bld) [#/Vol] 278 10*3/uL 150-450 [facility] Potassium [Moles/volume] in Serum or Plasmaon 11-21-2020 Potassium [Moles/Vol] 3.8 mmol/L 3.5-5.1 [facility] Protein [Mass/volume] in Ser um or Plasmaon 11-21-2020 Protein [Mass/Vol] 7.4 g/dL 6.1-7.9 [facility] RBC Auto (Bld) [#/Vol]on RBC (Bld) [#/Vol] 5.19 10*6/uL 3.60-5.00 [facility] Serum or plasma alanine calero otransferase measurement without P-5'-P (enzymatic activion 11-21-2020 ALT No additional P-5'-P [Catalytic activity/Vol] 17 U/L 10-60 [facility] Serum or plasma albumin/glob ulin mass ratioon 11-21-2020 Albumin/Globulin [Mass ratio] 1.2 {ratio} [facility] Sodium [Moles/volume] in Ser um or Plasmaon 11-21-2020 Sodium [Moles/Vol] 133 mmol/L 136-146 [facility] TSH DL <= 0.005 mIU/L Qnon 0 11-21-2020 TSH Qn 1.74 m[IU]/L 0.45-5.33 [facility] Urea nitrogen [Mass/volume] in Serum or Plasmaon 11-21-2020 Urea nitrogen [Mass/Vol] 18 mg/dL 9- [facility] Laboratory - Hematology and Cell countson 11-29-2018 WBC (Bld) [#/Vol] 3.5 10*3/uL 4.5-11.0 [facility] Automated erythrocytes count in urine sediment (number/area)on 11-05-2018 RBC Auto (Urine sed) [#/Area] 1-2 [HPF] 0-4 [facility] Automated leukocytes count i n urine sediment (number/area)on 11-05-2018 WBC Auto (Urine sed) [#/Area] Innumerable [HPF] 0-4 [facility] Automated urine hyaline cast s count (number/volume)on 11-05-2018 Hyaline casts Auto (U) [#/Vol] None seen [LPF] 0-1 [facility] Bilirubin Test strip Ql (U)o n 11-05-2018 Bilirubin Ql (U) Negative Negative [facility] Color Auto (U)on 11-05-2018 Color (U) Yellow Yellow [facility] Ketones Auto test strip (U) [Mass/Vol]on 11-05-2018 Ketones (U) [Mass/Vol] Negative Negative [facility] Mucus LM Ql (Urine sed)on Mucus Ql (Urine sed) 1+ [LPF] [facility] Nitrite Test strip Ql (U)on 11-05-2018 Nitrite Ql (U) Negative Negative [facility] Protein Auto test strip (U) [Mass/Vol]on 11-05-2018 Protein (U) [Mass/Vol] Negative Negative [facility] Specific gravity Auto test s trip (U) [Rel density]on 11-05-2018 Specific gravity (U) [Rel density] 1.025 1.001-1.030 [facility] Squamous epithelial cells de tection in urine sediment by light microscopyon 11-05-2018 Epithelial cells.squamous LM Ql (Urine sed) 1-2 [HPF] 0-2 [facility] Urine bacteria detection by automated methodon 11-05-2018 Bacteria Auto Ql (U) None seen None Seen [facility] Urine clarity by refractomet ry automatedon 11-05-2018 Clarity Refractometry automated (U) Clear Clear [facility] Urine glucose measurement by automated test strip (mass/volume)on 11-05-2018 Glucose Auto test strip (U) [Mass/Vol] Normal mg/dL Normal [facility] Urine hemoglobin detection b y automated test stripon 11-05-2018 Hemoglobin Auto test strip Ql (U) Trace Negative [facility] Urine leukocyte esterase det ection by automated test stripon 11-05-2018 Leukocyte esterase Auto test strip Ql (U) 4+ Negative [facility] Urobilinogen Auto test strip (U) [Mass/Vol]on 11-05-2018 Urobilinogen (U) [Mass/Vol] Normal mg/dL Normal [facility] pH Auto test strip (U)on pH (U) 5.0 [pH] 5.0-9.0 [facility] Blood anisocytosis detection on 08-16-2018 Anisocytosis Ql (Bld) Slight [facility] No Panel Informationon 08-16 Microcytosis Slight [facility] Platelet Estimate Normal Normal [facility] Platelet Morphology Comment Normal Normal [facility] Polychromasia [Presence] in Blood by Light microscopyon 08-16-2018 Polychromasia LM Ql (Bld) Slight [facility] RBC morphologyon 08-16-2018 RBC morphology finding Nom (Bld) N/A [facility] Laboratory - Hematology and Cell countson 07-18-2018 Band form neutrophils/100 WBC (Bld) 1 % 0-5 [facility] Lymphocytes/100 WBC Auto (Bl d)on 07-18-2018 Lymphocytes/100 WBC (Bld) 8 % 18-42 [facility] Metamyelocytes/100 WBC Manua l cnt (Bld)on 07-18-2018 Metamyelocytes/100 WBC (Bld) 2 % 0-0 [facility] Monocytes/100 WBC Manual cnt (Bld)on 07-18-2018 Monocytes/100 WBC (Bld) 7 % 2-11 [facility] Myelocytes/100 WBC Manual cn t (Bld)on 07-18-2018 Myelocytes/100 WBC (Bld) 2 % 0-0 [facility] Segmented neutrophils/100 WB C Manual cnt (Bld)on 07-18-2018 Segmented neutrophils/100 WBC (Bld) 80 % 50-70 [facility] Dermatopathologyon 8 Dermatopathology Pathologist: TRISH BOYLE MD Date of Procedure: 01/01/2018 Date Received: 01/02/2018 Date Reported 01/03/2018 Submitting Physician: DENZEL LUCERO MD Location: [facility] FINAL DIAGNOSIS A. SKIN, RIGHT LATERAL LEG, EXCISION: INVASIVE SQUAMOUS CELL CARCINOMA, WELL DIFFERENTIATED, INKED MARGINS FREE IN PLANES OF SECTIONS EXAMINED. B. SKIN, RIGHT CALF, EXCISION: INVASIVE SQUAMOUS CELL CARCINOMA, WELL DIFFERENTIATED, INKED MARGINS FREE IN PLANES OF SECTIONS EXAMINED. Electronically Signed Out by TRISH BOYLE M.D. Electronically Signed Out By TRISH BOYLE MD/[facility] Microscopic Description: A: Microscopic analysis shows irregular [...] and mitoses are rare. Clinical History: A,B: [id number]. Excisions. ([facility]) Specimens Submitted As: A: SKIN, RIGHT LATERAL LEG B: SKIN, RIGHT CALF Gross Description: A: Received in formalin is a bradford piece of skin measuring [id number]. The specimen is inked and embedded in toto in two blocks. B: Received in formalin is a bradford-brown piece of skin measuring [id number]. The specimen is inked and embedded in toto in three blocks. 01/02/2018 Normal [facility] Comment on above: Performed By: #### D #### Dermatopathology RETINOID PANELon 01-01-2018 ALT enzyme act/vol 16 U/L Normal 7 - 45 [facility] Comment on above: Result Comment: Tania ents treated with Sulfasalazine may generate falsely decreased results for ALT. Performed By: #### R ETN2 #### [facility] [id number] [place] [address] AST enzyme act/vol 24 U/L Normal 9 - 39 [facility] Comment on above: Performed By: #### R ETN2 #### [facility] [address] [place] [address] Triglyceride mass conc 273 mg/dL High 0 - 149 [facility] Comment on above: Result Comment: . AGE [...] dosing. Performed By: #### R ETN2 #### [facility] [address] [place] [address] Erythrocyte distribution width Ratio (RBC) 13.5 % Normal 11.5 - 14.5 [facility] Comment on above: Performed By: #### R ETN2 #### [facility] [address] [place] [address] Hematocrit Volume Fraction (Bld) 44.0 % Normal 36.0 - 46.0 [facility] Comment on above: Performed By: #### R ETN2 #### [facility] [address] [place] [address] Hemoglobin mass conc (Bld) 14.7 g/dL Normal 12.0 - 16.0 [facility] Comment on above: Performed By: #### R ETN2 #### [facility] [address] [place] [address] MCHC mass conc (RBC) 33.4 g/dL Normal 32.0 - 36.0 [facility] Comment on above: Performed By: #### R ETN2 #### [facility] [address] [place] [address] MCV Entitic volume (RBC) 88 fL Normal 80 - 100 [facility] Comment on above: Performed By: #### R ETN2 #### [facility] [address] [place] [address] Nucleated RBC/100 WBC Ratio (Bld) 0.0 /100 WBC Normal 0.0-0.0 [facility] Comment on above: Performed By: #### R ETN2 #### [facility] [address] [place] [address] Platelets #/vol (Bld) 284 10*3/uL Normal 150 - 450 [facility] Comment on above: Performed By: #### R ETN2 #### [facility] [address] [place] [address] RBC #/vol (Bld) 4.98 x10E12/L Normal 4.00 - 5.20 [facility] Comment on above: Performed By: #### R ETN2 #### [facility] [address] [place] [address] WBC #/vol (Bld) 8.6 10*3/uL Normal 4.4 - 11.3 [facility] Comment on above: Performed By: #### R ETN2 #### [facility] [address] [place] [address] Vital Signs Date Time Vital Sign Value Performing Clinician Facility 11-26-2023 09:39-0400 Body height 157.48 cm MD Albert Christianson Work Phone: [facility] 11-26-2023 09:39-0400 Body mass index (BMI) [Ratio] 36.4 kg/m2 MD Albert Christianson Work Phone: [facility] 11-26-2023 09:39-0400 Body temperature 97.3 [degF] MD Albert Christianson Work Phone: [facility] 11-26-2023 09:39-0400 Body weight 90.37 kg MD Albert Christianson Work Phone: [facility] 11-26-2023 09:39-0400 Diastolic blood pressure 94 mm[Hg] MD Albert Christianson Work Phone: [facility] 11-26-2023 09:39-0400 Heart rate 79 /min MD Albert Christianson Work Phone: [facility] 11-26-2023 09:39-0400 Respiratory rate 18 /min MD Albert Christianson Work Phone: [facility] 11-26-2023 09:39-0400 SaO2% (BldA) [Mass fraction] 95 % MD Albert Christianson Work Phone: [facility] 11-26-2023 09:39-0400 Systolic blood pressure 140 mm[Hg] MD Albert Christianson Work Phone: [facility] 05-18-2023 15:40-0400 Body temperature 97.8 [degF] MD Albert Christianson Work Phone: [facility] 05-18-2023 15:40-0400 Body weight 93.44 kg MD Albert Christianson Work Phone: [facility] 05-18-2023 15:40-0400 Diastolic blood pressure 79 mm[Hg] MD Albert Christianson Work Phone: [facility] 05-18-2023 15:40-0400 Heart rate 89 /min MD Albert Christianson Work Phone: [facility] 05-18-2023 15:40-0400 Respiratory rate 16 /min MD Albert Christianson Work Phone: [facility] 05-18-2023 15:40-0400 SaO2% (BldA) [Mass fraction] 98 % MD Albert Christianson Work Phone: [facility] 05-18-2023 15:40-0400 Systolic blood pressure 120 mm[Hg] MD Albert Christianson Work Phone: [facility] 03-13-2023 09:15-0400 Body height 157.48 cm Renu Chris Other [facility] Other 03-13-2023 09:15-0400 Body mass index (BMI) [Ratio] 37.71 kg/m2 Renu Chris Other [facility] Other 03-13-2023 09:15-0400 Body temperature 97.8 [degF] Renu Chris Other [facility] Other 03-13-2023 09:15-0400 Body weight 93.53 kg Renu Chris Other [facility] Other 03-13-2023 09:15-0400 Diastolic blood pressure 77 mm[Hg] Renu Chris Other [facility] Other 03-13-2023 09:15-0400 Respiratory rate 18 /min Renu Chris Other [facility] Other 03-13-2023 09:15-0400 SaO2% (BldA) [Mass fraction] 98 % Renu Chris Other [facility] Other 03-13-2023 09:15-0400 Systolic blood pressure 122 mm[Hg] Renu Chris Other [facility] Other 02-22-2023 09:10-0400 Body height 157.48 cm Leti Bowen Other [facility] Other 02-22-2023 09:10-0400 Body mass index (BMI) [Ratio] 37.67 kg/m2 Leti Jessi Other [facility] Other 02-22-2023 09:10-0400 Body temperature 97.8 [degF] Leti Jessi Other [facility] Other 02-22-2023 09:10-0400 Body weight 93.44 kg Leti Jessi Other [facility] Other 02-22-2023 09:10-0400 Diastolic blood pressure 87 mm[Hg] Leti Jessi Other [facility] Other 02-22-2023 09:10-0400 Respiratory rate 18 /min Leti Jessi Other [facility] Other 02-22-2023 09:10-0400 SaO2% (BldA) [Mass fraction] 98 % Leti Jessi Other [facility] Other 02-22-2023 09:10-0400 Systolic blood pressure 147 mm[Hg] Leti Jessi Other [facility] Other 01-05-2023 14:45-0400 Body height 157.48 cm Corey Grider Other [facility] Other 01-05-2023 14:45-0400 Body temperature 97.3 [degF] Corey Grider Other [facility] Other 01-05-2023 14:45-0400 Diastolic blood pressure 87 mm[Hg] Corey Grider Other [facility] Other 01-05-2023 14:45-0400 Systolic blood pressure 129 mm[Hg] Corey Grider Other [facility] Other 05-12-2022 17:30-0400 Body height 157.48 cm Adriana Donnellyault Other [facility] Other 05-12-2022 17:30-0400 Body mass index (BMI) [Ratio] 34.75 kg/m2 Adriana Donnellyault Other [facility] Other 05-12-2022 17:30-0400 Body temperature 98 [degF] Adriana José Manuel Other [facility] Other 05-12-2022 17:30-0400 Body weight 86.18 kg Adriana Donnellyault Other [facility] Other 05-12-2022 17:30-0400 Diastolic blood pressure 62 mm[Hg] Adriana José Manuel Other [facility] Other 05-12-2022 17:30-0400 Respiratory rate 18 /min Adriana José Manuel Other [facility] Other 05-12-2022 17:30-0400 SaO2% (BldA) [Mass fraction] 98 % Adriana José Manuel Other [facility] Other 05-12-2022 17:30-0400 Systolic blood pressure 99 mm[Hg] Adriana Donnellyault Other [facility] Other 11-10-2021 14:41-0400 Body height 160.02 cm MD Albert Christianson Work Phone: [facility] 10-28-2021 14:45-0400 Body height 157.48 cm Corey Grider Other [facility] Other 10-28-2021 14:45-0400 Body mass index (BMI) [Ratio] 38.41 kg/m2 Corey Grider Other [facility] Other 10-28-2021 14:45-0400 Body temperature 97.1 [degF] Corey Grider Other [facility] Other 10-28-2021 14:45-0400 Body weight 95.26 kg Corey Grider Other [facility] Other 10-28-2021 14:45-0400 Diastolic blood pressure 76 mm[Hg] Corey Grider Other [facility] Other 10-28-2021 14:45-0400 Systolic blood pressure 118 mm[Hg] Corey Grider Other [facility] Other 07-13-2021 11:00-0500 Body height 157.48 cm Nadeem Dorantes Other [facility] Other 07-13-2021 11:00-0500 Body temperature 98.2 [degF] Nadeem Dorantes Other [facility] Other 07-13-2021 11:00-0500 Respiratory rate 18 /min Nadeem Dorantes Other [facility] Other 07-13-2021 11:00-0500 SaO2% (BldA) [Mass fraction] 98 % Nadeem Dorantes Other [facility] Other Encounters Encounter Date Encounter Type Care Provider Facility Start: 11-27-2023 End: 11-28-2023 ambulatory Jessica L Brown Facility:[facility] Start: 11-27-2023 End: 11-27-2023 ambulatory NON STAFF Facility:[facility] Start: 11-27-2023 End: 11-27-2023 ambulatory MD Albert Christianson Work Phone: [facility] Work Phone: Start: 11-27-2023 End: 11-27-2023 Departed Referred MD Albert Christianson Work Phone: [facility] [place] Work Phone: Start: 11-26-2023 End: 11-26-2023 Patient encounter procedure MD Albert Christianson Work Phone: [facility] Work Phone: Start: 10-19-2023 End: 10-19-2023 ambulatory Albert Christianson Facility:[facility] Start: 10-19-2023 End: 10-19-2023 ambulatory MD Albert Christianson Work Phone: [facility] Work Phone: Start: 10-19-2023 End: 10-19-2023 Patient encounter procedure MD Albert Christianson Work Phone: [facility] [address] Work Phone: Start: 09-20-2023 End: 09-21-2023 ambulatory Jessica L Brown Facility:[facility] Start: 09-20-2023 End: 09-20-2023 Patient encounter procedure Jessica L Brown [facility] Start: 09-12-2023 End: 09-13-2023 ambulatory Jessica L Brown Facility:[facility] [place] [facility] Start: 06-19-2023 End: 06-20-2023 ambulatory Jessica L Brown Facility:[facility] Start: 06-19-2023 End: 06-19-2023 Lab Drop off Jessica L Brown [facility] Start: 06-12-2023 End: 06-12-2023 ambulatory SAIRA DHALIWAL Not Available Start: 05-22-2023 End: 05-23-2023 ambulatory Jessica L Brown Facility:[facility] [place] [facility] Start: 05-18-2023 ambulatory Albert Christianson Facility:[facility] Start: 05-18-2023 End: 05-18-2023 ambulatory MD Albert Christianson Work Phone: [facility] Work Phone: Start: 05-18-2023 End: 05-18-2023 Registered Recurring MD Albert Christianson Work Phone: [facility] Work Phone: Start: 05-16-2023 End: 05-17-2023 ambulatory Jessica L Brown Facility:[facility] [place] [facility] Start: 05-15-2023 End: 06-19-2023 ambulatory Jessica L Brown Facility:[id number] Start: 05-01-2023 End: 05-01-2023 ambulatory MD Albert Christianson Work Phone: [facility] Work Phone: Start: 05-01-2023 End: 05-01-2023 Patient encounter procedure MD Albert Christianson Work Phone: [facility] Vaccine Start: 04-17-2023 End: 04-18-2023 ambulatory Jessica L Brown Facility:[facility] [place] [facility] Start: 03-31-2023 ambulatory Jessica L Brown Facility: [facility] Start: 03-14-2023 End: 03-14-2023 ambulatory Jannet Chatman Other [facility] Other Start: 03-14-2023 Nursing evaluation o f patient and report Jannet Chatman [facility] Start: 03-13-2023 End: 03-13-2023 ambulatory Renusierra Chris Other [facility] Other Start: 03-13-2023 Office outpatient visit 15 minutes Renu Dot [facility] Start: 03-03-2023 End: 03-04-2023 ambulatory Jessica L Brown Facility:[facility] [place] [facility] Start: 02-22-2023 End: 02-22-2023 ambulatory Leti Bowen Other [facility] Other Start: 02-22-2023 Office outpatient visit 15 minutes Leti Bowen [facility] Start: 02-13-2023 End: 02-13-2023 ambulatory Albert Christianson Facility:[facility] Start: 01-05-2023 End: 01-05-2023 ambulatory Albert Christianson [place] [facility] Other Start: 01-05-2023 Office outpatient visit 25 minutes Corey Grider [facility] Start: 12-21-2022 ambulatory Jessica Brown Facility:[facility] Start: 12-13-2022 End: 12-14-2022 ambulatory ALBERT CHRISTIANSON Facility:[facility] [place] [facility] Start: 12-10-2022 End: 12-10-2022 ambulatory TERRENCE PEARSON . Facility:[facility] Start: 10-17-[address] SAIRA DHALIWAL . Fac ility:[facility] Start: 05-12-2022 End: 05-12-2022 ambulatory Adriana Georges Other [facility] Other Start: 05-12-2022 Office outpatient visit 15 minutes Adriana Georges [facility] Start: 03-22-2022 End: 03-22-2022 ambulatory Joe Mei Other [facility] Other Start: 03-22-2022 Nursing evaluation o f [...] AGOSTO . Facility:[facility] Start: 12-30-2021 (FCCC INJ) [facility] Injection Cindy Goetz [facility] Start: 12-30-2021 End: 12-30-2021 ambulatory Cindy Goetz Other [facility] Other Start: 11-05-2021 End: 11-05-2021 ambulatory Corey Grider Other [facility] Other Start: 11-05-2021 Telephone encounter [facility]y [facility]ON [facility] Start: 11-04-2021 End: 11-04-2021 ambulatory Corey Grider Other [facility] Other Start: 11-04-2021 Telephone encounter Corey MCKEON [facility] Start: 10-28-2021 End: 10-28-2021 ambulatory Corey Grider Other [facility] Other Start: 10-28-2021 Office outpatient ne w 45 minutes Corey Grider [facility] Start: 07-13-2021 End: 07-13-2021 ambulatory Nadeem Dorantes Other [facility] Other Start: 07-13-2021 Office outpatient visit 15 [...] Treatment Date Care Activity Detail Author Start: 11-26-2023 Bacteria identified in Urine by Culture [facility] Start: 11-10-2021 [facility] Start: 09-07-2018 [facility] Start: 07-06-2018 [facility] Start: 06-08-2018 [facility] Bacteria identified in Urine by Culture [facility] Estradiol (E2) [Mass /volume] in Serum or Plasma [facility] Estradiol (E2) [Mass /volume] in Serum or Plasma [facility] Lutropin [Units/volu me] in Serum or Plasma [facility] Lutropin [Units/volu me] in Serum or Plasma [facility] Immunizations Immunization Date Immunization Notes Care Provider Velma miles 12-30-2021 zoster vaccine recombinant Cindy Tonykaylene Other [facility] 09-13-2020 SARS-CoV-2 (COVID-19 ) mRNA-1273 vaccine Jessica Brown [facility] 08-26-2020 COVID-19 mRNA-1273 (Moderna) MD Albert Christianson Work Phone: [facility] 07-31-2020 SARS-CoV-2 (COVID-19 ) mRNA-1273 vaccine Jessica Brown [facility] 07-29-2020 COVID-19 mRNA-1273 (Modernjoleen) MD Albert Christianson Work Phone: [facility] 03-31-2020 influenza virus vaccine, unspecified formulation Jessica Brown [facility] Payers Date Payer Category Payer Unknown [id number] 2.16.84 [id number] 1970 Unknown [id number] 2.16.84 0.1.718436.3.579.2.593 1972 Unknown [id number] 2.16.84 0.1.127652.3.579.2.593 1972 Unknown [id number] 2.16.84 0.1.095205.3.579.2.593 1972 Unknown [id number] 2.16.84 0.1.283710.3.579.2.593 1972 Unknown [id number] 2.16.84 0.1.729128.3.579.2.593 1972 Unknown [id number] 2.16.84 0.1.340962.3.579.2.593 1972 Unknown [id number] 2.16.840. 1.217867.3.579.2.1259 1972 Unknown [id number] 2.16.8 40.1.480405.3.579.2.727 1972 Unknown [id number] 2.16.8 40.1.817868.3.579.2.727 1972 Unknown [id number] 2.16.8 40.1.145576.3.579.2.727 1972 Unknown [id number] 2.16.8 40.1.230934.3.579.2.727 1972 Unknown [id number] 2.16.8 40.1.418230.3.579.2.727 1972 Unknown [id number] 2.16.8 40.1.591314.3.579.2.727 1972 Unknown [id number] 2.16.8 40.1.757946.3.579.2.727 1972 Unknown [id number] 2.16.8 40.1.939521.3.579.2.727 1972 Unknown [id number] 2.16.8 40.1.312092.3.579.2.727 1972 Unknown [id number] 2.16.8 40.1.374016.3.579.2.727 1972 Unknown [id number] 2.16.8 40.1.169743.3.579.2.727 1959 Private Health Insurance [id number] Self-pay 1959 Unknown [id number] 2. 16.840.1.612599.19 Private Health Insurance [id number] 2.16.840.1.736324.19 Unknown [id number] 2.16.8 40.1.241396.3.579.2.531 Unknown [id number] 2.16.8 40.1.054946.3.579.2.531 Unknown [id number] 2.16.8 40.1.795415.3.579.2.531 Unknown [id number] 2.16.8 40.1.213878.3.579.2.531 Unknown [id number] 2.16.8 40.1.643505.3.579.2.531 Social History Date Type Detail Facility Unknown if ever smoked [facility] Other Sex Assigned At [facility] Start: 05-18-2023 End: 09-12-2023 Tobacco smoking status NHIS Never smoked tobacco (finding) [facility] Start: 1970 Sex Assigned At Female F [facility] 06-09-2018 to 06-19-2023 Laboratory Note Date & Type Note Facility 06-19-2023 Evaluation + Plan note Diagnostic Tests PendingUrine Culture 06/19/23 Future Scheduled TestsUrinalysis 12/13/22 [facility] 05-17-2023 Note [id number] Note [id number] [facility] 05-15-2023 Note [id number] Comment on above: Other Comment: INCOM PLETE FAX. NDW 03-14-2023 Evaluation note Encounter Date Diagnosis Assessment Notes Feb, Contact with and (suspected) exposure to other viral communicable diseases (ICD-10 - Z20.828) [facility] Other 08-14-2023 Evaluation note* Encounter Date Diagnosis [...] not. Patient verbalized understanding of treatment plan. [facility] Other 07-26-2023 Evaluation note* Encounter Date Diagnosis [...] your family physician next week as scheduled. [facility] Other 06-08-2023 Evaluation note* Encounter Date Diagnosis [...] at this time. Favor topical anti-itch routine pffq-wki-jewyabd lotion such as Sarna etc. Will await lab results and call her once these are back. If rash worsens or symptoms develop that are new she is always welcome to call me or if things are acutely bad to go to the emergency room. Dec, Fatigue, unspecified type (ICD-10 - R53.83) [facility] Other 05-16-2023 Evaluation + Plan note Future Scheduled Tests Laboratory* Urinalysis 12/13/22 [facility]10-13-2022 Progress note Author Tanya Washington [facility] May 12, 2022 7:31pm Note Date/Time May 12, 2022 3 :17pm [facility] [place] [id number] Hem/Onc Follow Up Note - OP Signed Patient: Maria M Mckeon MR#: [id number] : 1970 Acct:[id number] Age/Sex: 51 / F Type: REG RCR [...] She states she likely will go on branch service specialist antibiotics if any additional infections arise after [...] sepsis. She had a long hospitalization at [facility] in late November 2020 for methicillin [...] next few weeks to rheumatology here in [place] to evaluate for possible autoimmune etiologies. We [...] now nearly 2 years from diagnosis of [id number] right breast cancer, ER+, KY neg, Her neg high risk Oncotype 47 [...] Maria M is being evaluated by her Tar Boiler for PFTs due to persistent dyspnea with exertion, possibly related to prior sepsis hospitalization in fall 2018. No recurrent hydradenitis suppurativa lesions. Still has hot flashes, but improved control on gabapentin 300mg tid and would like to continue current dosing. She does not want to escalate dose due to concerns for sedation. 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 She did not see medical oncology or discuss breast conserving therapy or immediate reconstruction with her surgeon. On 05/07/2018, she underwent right modified radical mastectomy with axillary lymph node dissection (no attempt for sentinel lymph node) and left simple mastectomy with axillary dissection. Pathology showed right breast with 4.2cm mass, 4 lymph nodes negative--ER/KY/Her2 unchanged. No cancer in left breast or [...] resolved. This will also be followed by [facility]. --She has persistent mild fatigue and she received an Euzkbr-p-Nwzc for further chemotherapy and lab draws. No [...] [facility] [...] mg 3 times daily for 1 week, [id number] mg 3 times daily for 1 week. [...] 3-month follow-up. 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 --Bilateral mastectomy with axillary [...] She had 2 hospitalizations for sepsis at [facility] in November and March resulting from [...] to persistent symptoms I sent her to forensic social worker Dr. Gilbert in [place] for evaluation of her urgency/dysuria. 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 No vision change. Ears, nose, mouth, throat: [...] skin contaminant growth. I recommended reevaluation by [facility] for her dysuria and to determine other [...] screening but may offer a trial at [facility]). 06/20/2019: She noted hospitalization for sepsis at [facility] in early April 2019 and infusion [...] due to pain in the area and jail of her prior surgeon I referring her [...] inthe last 6 months for sepsis at [facility] resulting from cellulitis of the left [...] is following with Dr. Grider and considering [facility] antibiotic therapy. (4) Vasomotor symptoms due to [...] she was hospitalized early April 2019 at [facility] for sepsis and infusion port was [...] association with pancreatic cancer and I contacted [facility] to see if there is any recommended [...] for coordination of care (as documented) and qmts-xc-aphk counseling of patient and/or family. Dictated By: Tanya Washington MD DD/ 16 Signed By: <Electronically signed by MD Tanya Washington> 05/12/22 193 [facility] Work Phone: [phone] 188-244610-13-2022 Evaluation note* Encounter Date Diagnosis Assessment Notes [...] completed to make sure infection has cleared. [facility] Other 08-23-2022 Evaluation note* Encounter Date Diagnosis Assessment Notes Treatment Notes Treatment Clinical Notes Feb, Contact with and (suspected) exposure to other viral communicable diseases (ICD-10 - Z20.828) [facility] Other 06-02-2022 Evaluation note* Encounter Date Diagnosis [...] and provided as a take home handout. [facility] Other 04-13-2022 Progress note Author Sheri Kovacs [facility] November 10, 2021 3:48pm Note Date/Time November 10, 2021 2:4 5pm [facility] at [address] [address] Hem/Onc Follow Up Note - OP Signed Patient: Maria M Mckeon MR#: [id number] : 1970 Acct:[id number] Age/Sex: 51 / F Type: REG RCR [...] She states she likely will go on [facility]p antibiotics if any additional infections arise after [...] sepsis. She had a long hospitalization at [facility] in late November 2020 for methicillin [...] next few weeks to rheumatology here in [place] to evaluate for possible autoimmune etiologies. We have not performed an immune evaluation for her recurrent infections and I recommended sending quantitative immunoglobulins to determine if she has hypogammaglobulinemia. We also agreed to send LH, FSH, and estradiol level to determine if she is now postmenopausal. If so we will transition her to aromatase inhibitor therapy from tamoxifen. [facility] recent DEXA scan was in December 2019 [...] now nearly 2 years from diagnosis of [id number] right breast cancer, ER+, KY neg, Her neg high risk Oncotype 47 [...] Maria M is being evaluated by her Tar Boiler for PFTs due to persistent dyspnea with exertion, possibly related to prior sepsis hospitalization in fall 2018. No recurrent hydradenitis suppurativa lesions. Still has hot flashes, but improved control on gabapentin 300mg tid and would like to continue current dosing. She does not want to escalate dose due to concerns for sedation. 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 She did not see medical oncology or discuss breast conserving therapy or immediate reconstruction with her surgeon. On 05/07/2018, she underwent right modified radical mastectomy with axillary lymph node dissection (no attempt for sentinel lymph node) and left simple mastectomy with axillary dissection. Pathology showed right breast with 4.2cm mass, 4 lymph nodes negative--ER/KY/Her2 unchanged. No cancer in left breast or [...] resolved. This will also be followed by [facility]. --She has persistent mild fatigue and she received an Wijgon-a-Derr for further chemotherapy and lab draws. No [...] [facility] [...] mg 3 times daily for 1 week, [id number] mg 3 times daily for 1 week. [...] 3-month follow-up. 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 --Bilateral mastectomy with axillary [...] She had 2 hospitalizations for sepsis at [facility] in November and March resulting from [...] to persistent symptoms I sent her to forensic social worker Dr. Gilbert in [place] for evaluation of her urgency/dysuria. Urgency and [...] skin contaminant growth. I recommended reevaluation by [facility] for her dysuria and to determine other [...] screening but may offer a trial at [facility]). 06/20/2019: She noted hospitalization for sepsis at [facility] in early April 2019 and infusion [...] due to pain in the area and jail of her prior surgeon I referring her [...] inthe last 6 months for sepsis at [facility] resulting from cellulitis of the left [...] is following with Dr. Grider and considering branch service specialist antibiotic therapy. (4) Left-sided chest wall pain [...] she was hospitalized early April 2019 at [facility] for sepsis and infusion port was [...] association with pancreatic cancer and I contacted [facility] to see if there is any recommended [...] for coordination of care (as documented) and euvd-gv-ttzg counseling of patient and/or family. Dictated By: Sheri Kovacs APRN DD/ [id number] Signed By: <Electronically signed by CHUY Kovacs> 11/10/21 15[address] [facility] Work Phone: [phone]) 787-335004-07-2022 Evaluation note* Encounter Date Diagnosis Assessment Notes Treatment Notes Treatment Clinical Notes Oct, Recurrent cellulitis (ICD-10 - L03.90) [facility] Other 03-31-2022 Evaluation note* Encounter Date Diagnosis [...] I89.0) Sep, Hidradenitis suppurativa (ICD-10 - L73.2) [facility] Other 12-14-2021 Evaluation note* Encounter Date Diagnosis [...] Patient care instructions given in writting by [facility] At Home document. [facility] Other 09-29-2021 Progress note Author Tanya Washington [facility] April 28, 2021 1:55pm Note Date/Time April 28, 2021 9:49am [place] [address] Hem/Onc Follow Up Note - OP Signed Patient: Maria M Mckeon MR#: [id number] : 1970 Acct:[id number] Age/Sex: 50 / F Type: REG RCR [...] sepsis. She had a long hospitalization at [facility] in late November 2020 for methicillin [...] next few weeks to rheumatology here in [place] to evaluate for possible autoimmune etiologies. We [...] months thereafter until 5 years. She continues [id number] mg daily with some intermittent hot flashes [...] now nearly 2 years from diagnosis of [id number] right breast cancer, ER+, KY neg, Her neg high risk Oncotype 47 [...] Maria M is being evaluated by her Tar [employer]iler for PFTs due to persistent dyspnea with exertion, possibly related to prior sepsis hospitalization in fall 2018. No recurrent hydradenitis suppurativa lesions. Still has hot flashes, but improved control on gabapentin 300mg tid and would like to continue current dosing. She does not want to escalate dose due to concerns for sedation. 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 She did not see medical oncology or discuss breast conserving therapy or immediate reconstruction with her surgeon. On 05/07/2018, she underwent right modified radical mastectomy with axillary lymph node dissection (no attempt for sentinel lymph node) and left simple mastectomy with axillary dissection. Pathology showed right breast with 4.2cm mass, 4 lymph nodes negative--ER/KY/Her2 unchanged. No cancer in left breast or [...] resolved. This will also be followed by [facility]. --She has persistent mild fatigue and she received an Libpic-t-Xkth for further chemotherapy and lab draws. No [...] [facility] [...] mg 3 times daily for 1 week, [id number] mg 3 times daily for 1 week. [...] 3-month follow-up. 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 --Bilateral mastectomy with axillary [...] She had 2 hospitalizations for sepsis at [facility] in November and March resulting from [...] to persistent symptoms I sent her to forensic social worker Dr. Gilbert in [place] for evaluation of her urgency/dysuria. 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 No vision change. Ears, nose, mouth, throat: [...] skin contaminant growth. I recommended reevaluation by [facility] for her dysuria and to determine other [...] screening but may offer a trial at [facility]). 06/20/2019: She noted hospitalization for sepsis at [facility] in early April 2019 and infusion [...] due to pain in the area and jail of her prior surgeon I referring her [...] inthe last 6 months for sepsis at [facility] resulting from cellulitis of the left [...] she was hospitalized early April 2019 at [facility] for sepsis and infusion port was [...] association with pancreatic cancer and I contacted [facility] to see if there is any recommended [...] for coordination of care (as documented) and urhy-qj-mpmc counseling of patient and/or family. Dictated By: Tanya Washignton MD DD/ 0949 Signed By: <Electronically signed by MD Tanya Washington> 04/28/21 4[address] [facility] Work Phone: [phone] Progress note Author Tanya Washington [facility] November 23, 2020 10:21am Note Date/Time November 23, 2020 9:5 2am [facility] [place] [address] Hem/Onc Follow Up Note - OP Signed Patient: Maria M Mckeon MR#: [id number] : 1970 Acct:[id number] Age/Sex: 50 / F Type: REG RCR [...] now nearly 2 years from diagnosis of [id number] right breast cancer, ER+, KY neg, Her neg high risk [id number] s/p upfront bilateral mastectomy, adjuvant dose dense [...] Maria M is being evaluated by her [employer]iler for PFTs due to persistent dyspnea with exertion, possibly related to prior sepsis hospitalization in fall 2018. No recurrent hydradenitis suppurativa lesions. Still has hot flashes, but improved control on gabapentin 300mg tid and would like to continue current dosing. She does not want to escalate dose due to concerns for sedation. 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 She did not see medical oncology or discuss breast conserving therapy or immediate reconstruction with her surgeon. On 05/07/2018, she underwent right modified radical mastectomy with axillary lymph node dissection (no attempt for sentinel lymph node) and left simple mastectomy with axillary dissection. Pathology showed right breast with 4.2cm mass, 4 lymph nodes negative--ER/KY/Her2 unchanged. No cancer in left breast or [...] resolved. This will also be followed by [facility]. --She has persistent mild fatigue and she received an Flchip-j-Ypsk for further chemotherapy and lab draws. No [...] [facility] [...] mg 3 times daily for 1 week, [id number] mg 3 times daily for 1 week. [...] 3-month follow-up. She relates sepsis hospitalization at [facility] and we do not have records [...] LN neg), moderately differentiated adenocarcinoma, ER 90%, KY 0%, Her2 not overexpressed --Sent Oncotype DX [...] to persistent symptoms I sent her to forensic social worker Dr. Gilbert in [place] for evaluation of her urgency/dysuria. 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 No vision change. Ears, nose, mouth, throat: [...] % (Auto) 77.0, Lymph % (Auto) 18.8, [place] % (Auto) 3.8, Eos % (Auto) 0.1, Baso % (Auto) 0.3, Neut # (Auto) 5.9, Lymph # (Auto) 1.5, [place] # (Auto) 0.3, Eos# (Auto) 0.0, Baso [...] skin contaminant growth. I recommended reevaluation by [facility] for her dysuria and to determine other [...] screening but may offer a trial at [facility]). 06/20/2019: She noted hospitalization for sepsis at [facility] in early April 2019 and infusion [...] due to pain in the area and jail of her prior surgeon I referring her [...] she was hospitalized early April 2019 at [facility] for sepsis and infusion port was [...] association with pancreatic cancer and I contacted [facility] to see if there is any recommended [...] for coordination of care (as documented) and eyho-mp-qbrm counseling of patient and/or family. Dictated By: Tanya Washington MD DD/ 0951 Signed By: <Electronically signed by MD Tanya Washington> 11/23/20 [address] [place] Work Phone: [phone] Progress note Author Tanya Washington [facility] July 27, 2020 3:00pm Note Date/Time July 27, 2020 9:13am [place] [address] Hem/Onc Follow Up Note - OP Signed Patient: Maria M Mckeon MR#: [id number] : 1970 Acct:[id number] Age/Sex: 50 / F Type: REG RCR [...] now nearly 2 years from diagnosis of [id number] right breast cancer, ER+, KY neg, Her neg high risk Oncotype 47 [...] Maria M is being evaluated by her Tar Boiler for PFTs due to persistent dyspnea with exertion, possibly related to prior sepsis hospitalization in fall 2018. No recurrent hydradenitis suppurativa lesions. Still has hot flashes, but improved control on gabapentin 300mg tid and would like to continue current dosing. She does not want to escalate dose due to concerns for sedation. 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 She did not see medical oncology or discuss breast conserving therapy or immediate reconstruction with her surgeon. On 05/07/2018, she underwent right modified radical mastectomy with axillary lymph node dissection (no attempt for sentinel lymph node) and left simple mastectomy with axillary dissection. Pathology showed right breast with 4.2cm mass, 4 lymph nodes negative--ER/KY/Her2 unchanged. No cancer in left breast or [...] resolved. This will also be followed by [facility]. --She has persistent mild fatigue and she received an Uvwzdm-r-Zvgb for further chemotherapy and lab draws. No [...] [facility] [...] mg 3 times daily for 1 week, [id number] mg 3 times daily for 1 week. [...] 3-month follow-up. She relates sepsis hospitalization at [facility] and we do not have records [...] LN neg), moderately differentiated adenocarcinoma, ER 90%, KY 0%, Her2 not overexpressed --Sent Oncotype DX [...] to persistent symptoms I sent her to forensic social worker Dr. Gilbert in [place] for evaluation of her urgency/dysuria. 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 No vision change. Ears, nose, mouth, throat: [...] skin contaminant growth. I recommended reevaluation by [facility] for her dysuria and to determine other [...] screening but may offer a trial at [facility]). 06/20/2019: She noted hospitalization for sepsis at [facility] in early April 2019 and infusion [...] due to pain in the area and jail of her prior surgeon I referring her [...] she was hospitalized early April 2019 at [facility] for sepsis and infusion port was [...] association with pancreatic cancer and I contacted [facility] to see if there is any recommended [...] for coordination of care (as documented) and bcdh-xx-bhzf counseling of patient and/or family. Dictated By: Tanya Washington MD DD/ 1 Signed By: <Electronically signed by MD Tanya Washington> 07/27/20 [address] [place] Work Phone: [phone] Progress note Author Tanya Washington [facility] July 09, 2020 7:42am Note Date/Time July 08, 2020 2 :58pm [facility] [place] [facility] [place] [id number] Hem/Onc Follow Up Note - OP Signed Patient: Maria M Mckeon MR#: [id number] : 1970 Acct:[id number] Age/Sex: 50 / F Type: REG RCR [...] now nearly 2 years from diagnosis of [id number] right breast cancer, ER+, KY neg, Her neg high risk Oncotype 47 [...] Maria M is being evaluated by her Tar Boiler for PFTs due to persistent dyspnea with exertion, possibly related to prior sepsis hospitalization in fall 2018. No recurrent hydradenitis suppurativa lesions. Still has hot flashes, but improved control on gabapentin 300mg tid and would like to continue current dosing. She does not want to escalate dose due to concerns for sedation. 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 She did not see medical oncology or discuss breast conserving therapy or immediate reconstruction with her surgeon. On 05/07/2018, she underwent right modified radical mastectomy with axillary lymph node dissection (no attempt for sentinel lymph node) and left simple mastectomy with axillary dissection. Pathology showed right breast with 4.2cm mass, 4 lymph nodes negative--ER/KY/Her2 unchanged. No cancer in left breast or [...] resolved. This will also be followed by [facility]. --She has persistent mild fatigue and she received an Dbeqbt-t-Zwcm for further chemotherapy and lab draws. No [...] [facility] [...] mg 3 times daily for 1 week, [id number] mg 3 times daily for 1 week. [...] 3-month follow-up. She relates sepsis hospitalization at [facility] and we do not have records [...] LN neg), moderately differentiated adenocarcinoma, ER 90%, KY 0%, Her2 not overexpressed --Sent Oncotype DX [...] to persistent symptoms I sent her to forensic social worker Dr. Gilbert in [place] for evaluation of her urgency/dysuria. 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 No vision change. Ears, nose, mouth, throat: [...] skin contaminant growth. I recommended reevaluation by [facility] for her dysuria and to determine other [...] screening but may offer a trial at [facility]). 06/20/2019: She noted hospitalization for sepsis at [facility] in early April 2019 and infusion [...] she was hospitalized early April 2019 at [facility] for sepsis and infusion port was [...] association with pancreatic cancer and I contacted [facility] to see if there is any recommended [...] for coordination of care (as documented) and vmhl-yj-ctsr counseling of patient and/or family. Dictated By: Tanya Washington MD DD/ 1457 Signed By: <Electronically signed by MD Tanya Washington> 07/09/20 [address] [place] Work Phone: [phone] Progress note Author Tanya Washington [facility] March 11, 2020 2:07pm Note Date/Time March 11, 2020 11 :43am [facility] [place] [address] Hem/Onc Follow Up Note - OP Signed Patient: Maria M Mcekon MR#: [id number] : 1970 Acct:[id number] Age/Sex: 49 / F Type: REG RCR [...] now nearly 2 years from diagnosis of [id number] right breast cancer, ER+, KY neg, Her neg high risk Oncotype 47 [...] patient is in agreement with thisplan. 12/11/2019: aMria M is here for 3 month f/u. [...] Maria M is being evaluated by her Tar Boiler for PFTs due to persistent dyspnea with exertion, possibly related to prior sepsis hospitalization in fall 2018. No recurrent hydradenitis suppurativa lesions. Still has hot flashes, but improved control on gabapentin 300mg tid and would like to continue current dosing. She does not want to escalate dose due to concerns for sedation. 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 She did not see medical oncology or discuss breast conserving therapy or immediate reconstruction with her surgeon. On 05/07/2018, she underwent right modified radical mastectomy with axillary lymph node dissection (no attempt for sentinel lymph node) and left simple mastectomy with axillary dissection. Pathology showed right breast with 4.2cm mass, 4 lymph nodes negative--ER/KY/Her2 unchanged. No cancer in left breast or [...] resolved. This will also be followed by [facility]. --She has persistent mild fatigue and she received an Njnrrz-z-Mllz for further chemotherapy and lab draws. No [...] [facility] [...] mg 3 times daily for 1 week, [id number] mg 3 times daily for 1 week. [...] prior therapy. No other concerns today. 06/20/2019: Marai M is here for 3-month follow-up. She relates sepsis hospitalization at [facility] and we do not have records [...] LN neg), moderately differentiated adenocarcinoma, ER 90%, KY 0%, Her2 not overexpressed --Sent Oncotype DX [...] to persistent symptoms I sent her to forensic social worker Dr. Gilbert in [place] for evaluation of her urgency/dysuria. 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 No vision change. Ears, nose, mouth, throat: [...] Diagram of Most Recent CBC and CMP 05/02/19 10:45 11/08/18 10:05 - Impressions 01/21/2020 DEXA [...] skin contaminant growth. I recommended reevaluation by [facility] for her dysuria and to determine other [...] screening but may offer a trial at [facility]). 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 She has already had bilateral mastectomy but will be speaking with family members regarding recommendations for screening for this breast cancer associated gene. There is also an association with pancreatic cancer and I contacted [facility] to see if there is any recommended [...] for coordination of care (as documented) and zfsa-rt-ezwd counseling of patient and/or family. Dictated By: Tanya Washington MD DD/ 1139 Signed By: <Electronically signed by MD Tanya Washington> 03/11/20 [address] [place] Work Phone: [phone] Progress note Author Tanya Washington [facility] December 11, 2019 8:40pm Note Date/Time December 11, 2019 2:14p m [facility] at [address] [address] Hem/Onc Follow Up Note - OP Signed Patient: Maria M Mckeon MR#: [id number] : 1970 Acct:[id number] Age/Sex: 49 / F Type: REG RCR [...] Maria M is being evaluated by her Tar Boiler for PFTs due to persistent dyspnea with exertion, possibly related to prior sepsis hospitalization in fall 2018. No recurrent hydradenitis suppurativa lesions. Still has hot flashes, but improved control on gabapentin 300mg tid and would like to continue current dosing. She does not want to escalate dose due to concerns for sedation. 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 She did not see medical oncology or discuss breast conserving therapy or immediate reconstruction with her surgeon. On 05/07/2018, she underwent right modified radical mastectomy with axillary lymph node dissection (no attempt for sentinel lymph node) and left simple mastectomy with axillary dissection. Pathology showed right breast with 4.2cm mass, 4 lymph nodes negative--ER/KY/Her2 unchanged. No cancer in left breast or [...] resolved. This will also be followed by [facility]. --She has persistent mild fatigue and she received an Bptpwz-u-Wnef for further chemotherapy and lab draws. No [...] [facility] [...] mg 3 times daily for 1 week, [id number] mg 3 times daily for 1 week. [...] 3-month follow-up. 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 No vision change. Ears, nose, mouth, throat: [...] skin contaminant growth. I recommended reevaluation by [facility] for her dysuria and to determine other [...] screening but may offer a trial at [facility]). 06/20/2019: She noted hospitalization for sepsis at [facility] in early April 2019 and infusion [...] she was hospitalized early April 2019 at [facility] for sepsis and infusion port was [...] association with pancreatic cancer and I contacted [facility] to see if there is any recommended [...] for coordination of care (as documented) and ignp-xa-pbup counseling of patient and/or family. Dictated By: Tanya Washington MD DD/ 1413 Signed By: <Electronically signed by MD Tanya Washington> 12/11/1920[address] [place] Work Phone: [phone] Progress note Author Tanya Washington [facility] September 13, 2019 7:07pm Note Date/Time September 12, 2019 3:51pm [facility] [place] [address] Hem/Onc Follow Up Note - OP Signed Patient: Maria M Mckeon MR#: [id number] : 1970 Acct:[id number] Age/Sex: 49 / F Type: REG RCR [...] Maria M is being evaluated by her Tar Boiler for PFTs due to persistent dyspnea with exertion, possibly related to prior sepsis hospitalization in fall 2018. No recurrent hydradenitis suppurativa lesions. Still has hot flashes, but improved control on gabapentin 300mg tid and would like to continue current dosing. She does not want to escalate dose due to concerns for sedation. 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 She did not see medical oncology or discuss breast conserving therapy or immediate reconstruction with her surgeon. On 05/07/2018, she underwent right modified radical mastectomy with axillary lymph node dissection (no attempt for sentinel lymph node) and left simple mastectomy with axillary dissection. Pathology showed right breast with 4.2cm mass, 4 lymph nodes negative--ER/KY/Her2 unchanged. No cancer in left breast or [...] resolved. This will also be followed by [facility]. --She has persistent mild fatigue and she received an Lknzcs-y-Rpxx for further chemotherapy and lab draws. No [...] we will discuss pancreas cancer screening with [facility] there is no routine screening recommended based [...] mg 3 times daily for 1 week, [id number] mg 3 times daily for 1 week. [...] 3-month follow-up. 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 No vision change. Ears, nose, mouth, throat: [...] skin contaminant growth. I recommended reevaluation by [facility] for her dysuria and to determine other [...] screening but may offer a trial at [facility]). 06/20/2019: She noted hospitalization for sepsis at [facility] in early April 2019 and infusion [...] she was hospitalized early April 2019 at [facility] for sepsis and infusion port was [...] with pancreatic cancer and I have contacted [facility] to see if there is any recommended [...] for coordination of care (as documented) and kwhl-wg-hixm counseling of patient and/or family. Dictated By: Tanya Washington MD DD/ 1550 Signed By: <Electronically signed by MD Tanya Washington> 09/13/19 [address] [place] Work Phone: [phone]) [phone] Progress note Author Tanya Washington [facility] June 21, 2019 5:55pm Note Date/Time June 20, 2019 3:51pm [facility] [place] [address] Hem/Onc Follow Up Note - OP Signed Patient: Maria M Mckeon MR#: [id number] : 1970 Acct:[id number] Age/Sex: 49 / F Type: REG RCR Copies to: Driss Mendoza MD~ Subjective Date/Time of Service: Date of Service: 06/20/2019 Time of Service: 15:50 Chief Complaint: Patient is here for follow up history of breast cancer on tamoxifen. Patient was in [facility] May 05 for sepsis. Patient had port removal. Patient has spot above her coccyx that she would like looked at. Patient complains of shortness of breath at times. HPI: 06/20/2019: Maria M is here for 3-month follow-up. She relates sepsis hospitalization at [facility] and we do not have records [...] prior surgeon Dr. Anne Marie rubin. She is otherwise without new concerns today [...] new complaints from her last visit with ct 12/14/2018. She started jgljmkujd21 mg daily on 12/24/2018 with hot flashes [...] invasive mammary carcinoma, grade 2-3, ER 95%, KY 0%, Her2 negative. She did not see medical oncology or discuss breast conserving therapy or immediate reconstruction with her surgeon. On 05/07/2018, she underwent right modified radical mastectomy with axillary lymph node dissection (no attempt for sentinel lymph node) and left simple mastectomy with axillary dissection. Pathology showed right breast with 4.2cm mass, 4 lymph nodes negative--ER/KY/Her2 unchanged. No cancer in left breast or [...] resolved. This will also be followed by [facility]. --She has persistent mild fatigue and she received an Mwlnfr-f-Ooox for further chemotherapy and lab draws. 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 No vision change. Ears, nose, mouth, throat: [...] skin contaminant growth. I recommended reevaluation by [facility] for her dysuria and to determine other [...] cancer given her SARABJIT mutation (discussed with xaitment--unlikely to benefit from additional cancer screening but may offer a trial at [facility]). 06/20/2019: She noted hospitalization for sepsis at [facility] in early April 2019 and infusion [...] she was hospitalized early April 2019 at [facility] for sepsis and infusion port was [...] with pancreatic cancer and I have contacted [facility] to see if there is any recommended [...] for coordination of care (as documented) and pked-wb-ykuu counseling of patient and/or family. Dictated By: Tanya Washington MD DD/ 9140 Signed By: <Electronically signed by MD Tanya Washington> 06/21/19 0006 [place] Work Phone: [phone] Progress note Author Tanya Washington [facility] March 28, 2019 9:09am Note Date/Time March 27, 2019 3: 57pm [facility] at [address] [address] Hem/Onc Follow Up Note - OP Signed Patient: Maria M Mckeon MR#: [id number] : 1970 Acct:[id number] Age/Sex: 48 / F Type: REG RCR Copies to: MendozaDriss chandra MD~ Subjective Date/Time of Service: Date of [...] mg 3 times daily for 1 week, lips051 mg 3 times daily for 1 week. [...] new complaints from her last visit with ct 12/14/2018. She started wxexxwdsu75 mg daily on 12/24/2018 with hot flashes [...] invasive mammary carcinoma, grade 2-3, ER 95%, KY 0%, Her2 negative. She did not see medical oncology or discuss breast conserving therapy or immediate reconstruction with her surgeon. On 05/07/2018, she underwent right modified radical mastectomy with axillary lymph node dissection (no attempt for sentinel lymph node) and left simple mastectomy with axillary dissection. Pathology showed right breast with 4.2cm mass, 4 lymph nodes negative--ER/KY/Her2 unchanged. No cancer in left breast or [...] resolved. This will also be followed by [facility]. --She has persistent mild fatigue and she received an Bdkwll-i-Vpmy for further chemotherapy and lab draws. 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 No vision change. Ears, nose, mouth, throat: [...] skin contaminant growth. I recommended reevaluation by [facility] for her dysuria and to determine other [...] screening but may offer a trial at [facility]). She knows to call us sooner with [...] with pancreatic cancer and I have contacted [facility] to see if there is any recommended [...] for coordination of care (as documented) and pbve-zy-znaq counseling of patient and/or family. Dictated By: Tanya Washington MD DD/ 1556 Signed By: <Electronically signed by MD Tanya Washington> 03/28/19 0909 [facility] Work Phone: [phone] Progress note Author Tanya Washington [facility] December 28, 2018 2:45pm Note Date/Time December 27, 2018 2:54p m [facility] at [place] [id number] Hem/Onc Follow Up Note - OP Signed Patient: Maria M Mckeon MR#: [id number] : 1970 Acct:[id number] Age/Sex: 48 / F Type: REG RCR [...] LN neg), moderately differentiated adenocarcinoma, ER 90%, KY 0%, Her2 not overexpressed --Sent Oncotype DX [...] due to persistent symptomsI sent her to forensic social worker Dr. Gilbert in [place] for evaluation of her urgency/dysuria. Urgency and [...] new complaints from her last visit with ct 12/14/2018. She started eemokhsfx91 mg daily on 12/24/2018 with hot flashes [...] invasive mammary carcinoma, grade 2-3, ER 95%, KY 0%, Her2 negative. She did not see medical oncology or discuss breast conserving therapy or immediate reconstruction with her surgeon. On 05/07/2018, she underwent right modified radical mastectomy with axillary lymph node dissection (no attempt for sentinel lymph node) and left simple mastectomy with axillary dissection. Pathology showed right breast with 4.2cm mass, 4 lymph nodes negative--ER/KY/Her2 unchanged. No cancer in left breast or [...] resolved. This will also be followed by [facility]. --She has persistent mild fatigue and she received an Dlwowd-n-Rfzq for further chemotherapy and lab draws. 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 No vision change. Ears, nose, mouth, throat: [...] skin contaminant growth. I recommended reevaluation by [facility] for her dysuria and to determine other [...] screening but may offer a trial at [facility]). She knows to call us sooner with [...] next 2 weeks. I advised evaluation by [facility] for persistent dysuria symptoms but these appeared [...] with pancreatic cancer and I have contacted [facility] to see if there is any recommended [...] for coordination of care (as documented) and sgkz-rx-ftwz counseling of patient and/or family. Dictated By: Tanya Washington MD DD/ 1454 Signed By: <Electronically signed by MD Tanya Washington> 12/28/18 1445 [place] Work Phone: [phone] Progress note Author Tanya Washington [facility] December 17, 2018 2:58pm Note Date/Time December 17, 2018 10:31 am [facility] [place] [address] Hem/Onc Follow Up Note - OP Signed Patient: Maria M Mckeon MR#: [id number] : 1970 Acct:[id number] Age/Sex: 48 / F Type: REG RCR [...] LN neg), moderately differentiated adenocarcinoma, ER 90%, KY 0%, Her2 not overexpressed --Sent Oncotype DX [...] to persistent symptoms I sent her to forensic social worker Dr. Gilbert in [place] for evaluation of her urgency/dysuria. 10. Pea [...] resolved. This will also be followed by [facility]. She has persistent mild fatigue and she received an Pzfian-p-Kfql for further chemotherapy and lab draws. No [...] [facility] [...] invasive mammary carcinoma, grade 2-3, ER 95%, KY 0%, Her2 negative. She did not see medical oncology or discuss breast conserving therapy or immediate reconstruction with her surgeon. On 05/07/2018, she underwent right modified radical mastectomy with axillary lymph node dissection (no attempt for sentinel lymph node) and left simple mastectomy with axillary dissection. Pathology showed right breast with 4.2cm mass, 4 lymph nodes negative--ER/KY/Her2 unchanged. 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 No vision change. Ears, nose, mouth, throat: [...] skin contaminant growth. I recommended reevaluation by [facility] for her dysuria and to determine other [...] screening but may offer a trial at [facility]). She knows to call us sooner with [...] next 2 weeks. I advised evaluation by [facility] for persistent dysuria symptoms but these appeared [...] with pancreatic cancer and I have contacted [facility] to see if there is any recommended [...] for coordination of care (as documented) and vska-mj-lpel counseling of patient and/or family. Dictated By: Tanya Washington MD DD/ 1030 Signed By: <Electronically signed by MD Tanya Washington> 12/17/18 5511 [facility] Work Phone: [phone] Progress note Author Tanya Washington [facility] November 30, 2018 1:22pm Note Date/Time November 30, 2018 10:38a m [facility] [place] at [place] [id number] Hem/Onc Follow Up Note - OP Signed Patient: Maria M Mckeon MR#: [id number] : 1970 Acct:[id number] Age/Sex: 48 / F Type: REG RCR [...] LN neg), moderately differentiated adenocarcinoma, ER 90%, KY 0%, Her2 not overexpressed --Sent Oncotype DX [...] to persistent symptoms I sent her to forensic social worker Dr. Gilbert in [place] for evaluation of her urgency/dysuria. HPI: The [...] resolved. This will also be followed by [facility]. She has persistent mild fatigue and she received an Ghewov-p-Nvrl for further chemotherapy and lab draws. No [...] [facility] [...] invasive mammary carcinoma, grade 2-3, ER 95%, KY 0%, Her2 negative. She did not see medical oncology or discuss breast conserving therapy or immediate reconstruction with her surgeon. On 05/07/2018, she underwent right modified radical mastectomy with axillary lymph node dissection (no attempt for sentinel lymph node) and left simple mastectomy with axillary dissection. Pathology showed right breast with 4.2cm mass, 4 lymph nodes negative--ER/KY/Her2 unchanged. 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 No vision change. Ears, nose, mouth, throat: [...] % (Auto) 60.8, Lymph % (Auto) 23.1, [place] % (Auto) 7.2, Eos % (Auto) 7.8, Baso % (Auto) 1.1, Neut # (Auto) 2.1, Lymph # (Auto) 0.8 L, [place] # (Auto) 0.3, Eos # (Auto) 0.3, [...] Selvin Devine M.D.07/11/2018 5:12 PM Dictation Location: [facility] Any impression(s) listed above is documentation that [...] skin contaminant growth. I recommended reevaluation by [facility] for her dysuria and to determine other [...] next 2 weeks. I advised evaluation by [facility] for persistent dysuria symptoms but these appeared [...] with pancreatic cancer and I have contacted [facility] to see if there is any recommended [...] urinalyses showing skin contaminants on culture. Recommended [facility] consultation and symptoms improved with trial of [...] for coordination of care (as documented) and edkx-uv-vabc counseling of patient and/or family. Dictated By: Tanya Washington MD DD/ 1037 Signed By: <Electronically signed by MD Tanya Washington> 11/30/18 5584 [place] Work Phone: [phone] Progress note Author Tanya Washington [facility] November 09, 2018 12:21pm Note Date/Time November 09, 2018 10: 21am [facility] [place] [address] Hem/Onc Follow Up Note - OP Signed Patient: Maria M Mckeon MR#: [id number] : 1970 Acct:[id number] Age/Sex: 48 / F Type: REG RCR [...] LN neg), moderately differentiated adenocarcinoma, ER 90%, KY 0%, Her2 not overexpressed --Sent Oncotype DX [...] persistent symptoms I am sending her to forensic social worker Dr. Gilbert in [place] for evaluation of her urgency/dysuria. HPI: The [...] resolved. This will also be followed by [facility]. She has persistent mild fatigue and she received an Vcrjpo-e-Vmnt for further chemotherapy and lab draws. No [...] invasive mammary carcinoma, grade 2-3, ER 95%, KY 0%, Her2 negative. She did not see medical oncology or discuss breast conserving therapy or immediate reconstruction with her surgeon. On 05/07/2018, she underwent right modified radical mastectomy with axillary lymph node dissection (no attempt for sentinel lymph node) and left simple mastectomy with axillary dissection. Pathology showed right breast with 4.2cm mass, 4 lymph nodes negative--ER/KY/Her2 unchanged. 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 No vision change. 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 : 1 Para: 1 CROTCH PIECE BASTER Comments: Has paraguard copper IUD does not [...] 7 Days 11/08/18 10:05: PHA Creatinine Clear 97.7767600415, Sodium 136, Potassium 3.6, Chloride 102, Carbon [...] Neut % (Auto) 61.7,Lymph % (Auto) 19.3, [place] % (Auto) 6.5, Eos % (Auto) 11.5, Baso % (Auto) 1.0, Neut # (Auto) 2.5, Lymph # (Auto) 0.8 L, [place] # (Auto) 0.3, Eos # (Auto) 0.5 H, Baso # (Auto) 0.0, Nucleated RBC % (auto) 0.1 11/05/18 09:57: PHA Creatinine Clear 105.5070419392, Sodium 139, Potassium 4.0, Chloride 104, Carbon [...] Neut % (Auto) 71.5,Lymph % (Auto) 16.3, [place] % (Auto) 3.7, Eos % (Auto) 7.5, Baso % (Auto) 1.0, Neut # (Auto) 4.0, Lymph # (Auto) 0.9 L, [place] # (Auto) 0.2, Eos # (Auto) 0.4, Baso # (Auto) 0.1, Nucleated RBC % (auto) 0.3 11/05/18 09:55: Urine Color Yellow, Urine Appearance Clear, Urine pH 5.0, Ur Specific Cord 1.025, Urine Protein Negative, Urine Glucose (UA) [...] Selvin Devine M.D.07/11/2018 5:12 PM Dictation Location: [facility] Any impression(s) listed above is [...] skin contaminant growth. I recommended reevaluation by [facility] for her dysuria and to determine other [...] remainder of chemotherapy. I advised evaluation by [facility] for persistent dysuria symptoms. Will follow closely [...] showing skin contaminants on culture. Sending to [facility] for further evaluation and trial of Pyridium [...] for coordination of care (as documented) and sqjp-rs-revj counseling of patient and/or family. Dictated By: Tanya Washington MD DD/ 1019 Signed By: <Electronically signed by MD Tanya Washington> 11/09/18 1221 [place] Work Phone: [phone] Hospital Discharge instructionsAmbulatory Orders* Urinalysis Time Frame: 11/05/18, Location: Determined By Patient * Urine Culture Time Frame: 09/04/18, Location: Determined By Patient * Urinalysis Time Frame: 09/04/18, Location: Determined By Patient [place] Work Phone: [phone] Progress note Author Tanya Washington [facility] October 06, 2018 3:38pm Note Date/Time October 05, 2018 10:[address] [place] [address] Cancer Center at [address] [address] Hem/Onc Follow Up Note - OP Signed Patient: Maria M Mckeon MR#: [id number] : 1970 Acct:[id number] Age/Sex: 48 / F Type: REG RCR [...] LN neg), moderately differentiated adenocarcinoma, ER 90%, KY 0%, Her2 not overexpressed --Sent Oncotype DX [...] persistent mild fatigue and she received an Acgoou-b-Ttpa for further chemotherapy and lab draws. No [...] invasive mammary carcinoma, grade 2-3, ER 95%, KY 0%, Her2 negative. She did not see medical oncology or discuss breast conserving therapy or immediate reconstruction with her surgeon. On 05/07/2018, she underwent right modified radical mastectomy with axillary lymph node dissection (no attempt for sentinel lymph node) and left simple mastectomy with axillary dissection. Pathology showed right breast with 4.2cm mass, 4 lymph nodes negative--ER/KY/Her2 unchanged. No cancer in left breast or [...] which she will be following with her tractor mechanic next week. No vision change. 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 Hx : 1 Para: 1 CROTCH PIECE BASTER Comments: Has paraguard copper IUD does not [...] 7 Days 10/04/18 09:52: PHA Creatinine Clear 110.3651047874, Sodium 136, Potassium 3.7, Chloride 103, Carbon [...] Neut % (Auto)62.2, Lymph % (Auto) 19.3, [place] % (Auto) 4.9, Eos % (Auto) 12.4, Baso % (Auto) 1.2, Neut # (Auto) 2.5, Lymph # (Auto) 0.8 L, [place] # (Auto) 0.2, Eos # (Auto) 0.5 H, Baso # (Auto) 0.1, Nucleated RBC % (auto) 0.2 09/28/18 13:07: Urine Color Yellow, Urine Appearance Cloudy A, Urine pH 5.0, Ur Specific Cord 1.018, Urine Protein Negative, Urine Glucose (UA) [...] Selvin Devine M.D.07/11/2018 5:12 PM Dictation Location: [place] [address] Any impression(s) listed above is documentation that [...] time she does not require referral to [facility] for I&D. She has stable mild fatigue. [...] of chemotherapy. We will consider evaluation by [facility] if persistent symptoms for possible I&D if [...] for coordination of care (as documented) and vqjs-ip-uhed counseling of patient and/or family. Dictated By: Tanya Washington MD DD/ 104 Signed By: <Electronically signed by MD Tanya Washington> 10/06/18 0415 [place] Work Phone: [phone] Progress note Author Tanya Washington [facility] September 07, 2018 5:47pm Note Date/Time September 07, 2018 9 :44am [facility] at [place] [id number] Hem/Onc Follow Up Note - OP Signed Patient: Maria M Mckeon MR#: [id number] : 1970 Acct:[id number] Age/Sex: 48 / F Type: REG RCR [...] LN neg), moderately differentiated adenocarcinoma, ER 90%, KY 0%, Her2 not overexpressed --Sent Oncotype DX [...] likely continue Diflucan and refer her to [facility]. She has persistent mild fatigue and she received an Mskqef-y-Rird for further chemotherapy and lab draws. She [...] invasive mammary carcinoma, grade 2-3, ER 95%, KY 0%, Her2 negative. She did not see medical oncology or discuss breast conserving therapy or immediate reconstruction with her surgeon. On 05/07/2018, she underwent right modified radical mastectomy with axillary lymph node dissection (no attempt for sentinel lymph node) and left simple mastectomy with axillary dissection. Pathology showed right breast with 4.2cm mass, 4 lymph nodes negative--ER/KY/Her2 unchanged. No cancer in left breast or [...] which she will be following with her tractor mechanic next week. No vision change. 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 She has stable mild fatigue. No issues with nausea/vomiting or diarrhea. Laboratories unremarkable. Reinforced neutropenic precautions. Mild crusting over new Ejdnjw-t-Igwh scar without erythema. Will follow closelywith continued [...] 100 mg daily and consider evaluation by [facility] if persistent symptoms for possible I&D. Will [...] for coordination of care (as documented) and echk-ql-aczg counseling of patient and/or family. Dictated By: Tanya Washington MD DD/ 0943 Signed By: <Electronically signed by MD Tanya Washington> 09/07/18 1578 [facility] Work Phone: [phone] Progress note Author Judith Bhatt [facility] August 09, 2018 8:16pm Note Date/Time August 08, 2018 11 :02[facility] at [place] [id number] Genetics Follow Up Note Signed Patient: Maria M Mckeon MR#: [id number] : 1970 Acct:[id number] Age/Sex: 48 / F Type: REG RCR Copies to: Driss Mendoza Kim E MD Reese,Tanya DOVER~ Genetics Follow Up Note Narrative: History of Present Illness Maria M Mckeon is a 48-year-old female with a personal history of breast cancer.She was referred to the Cancer Genetics Clinic at [facility] by her physician, Dr. Guy. She was last seen on 07/11/18 and returns today, 08/08/17 with her sister to review the results of her genetic testing. 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 This means that her result is POSITIVE. Genetic testing was performed by [facility]. These genes include the following: BRCA1, BRCA2, [...] risk for pancreatic cancer, a referral to [facility] [employer] can be considered. PLAN: 1. Ms. Mckeon [...] contacting their local cancer center, going to [facility] and clicking on ?find a counselor?, or calling our office ([phone]). Family members are eligible for free testing with [employer] for 90 days after report date (08-07-18). [...] at [facility] at [phone] for questions or concerns about the information discussed at this appointment. Time Spent With Patient: 45 minutes of which 100 percent was spent counseling and or coordinating care. Dictated By: Judith Bhatt MD DD/ 1102 Signed By: <Electronically signed by Judith Bhatt MD> 08/09/182015 [place] Work Phone: [phone] Progress note Author Tanya Washington [facility] August 04, 2018 9:21am Note Date/Time August 03, 2018 10 :13am [facility] [place] at [address] [address] Hem/Onc Follow Up Note - OP Signed Patient: Maria M Mckeon MR#: [id number] : 1970 Acct:[id number] Age/Sex: 48 / F Type: REG RCR [...] groin area that has traveled back to [facility]. Patient has used OTC antifungal. Patient also notes eyes have become red. - Diagnosis DIAGNOSIS: 1. Right upper outer quadrant [id number] (4.2 cm primary, 4 LN neg), moderately differentiated adenocarcinoma, ER 90%, KY 0%, Her2 not overexpressed --Sent Oncotype DX [...] has persistent mild fatigue and shereceived an Pzjnuj-z-Rhot for further chemotherapy and lab draws. There [...] invasive mammary carcinoma, grade 2-3, ER 95%, KY 0%, Her2 negative. She did not see medical oncology or discuss breast conserving therapy or immediate reconstruction with her surgeon. On 05/07/2018, she underwent right modified radical mastectomy with axillary lymph node dissection (no attempt for sentinel lymph node) and left simple mastectomy with axillary dissection. Pathology showed right breast with 4.2cm mass, 4 lymph nodes negative--ER/KY/Her2 unchanged. 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 Mild crusting over new Hiszey-v-Rmkv scar without erythema. Will follow closely with [...] for coordination of care (as documented) and hckg-hp-qbvx counseling of patient and/or family. Dictated By: Tanya Washington MD DD/ 1012 Signed By: <Electronically signed by Tanya Washington MD> 08/04/18 0921 [facility] Work Phone: [phone] 146-908112-21-2018 Consult note Author Judith Bhatt [facility] July 20, 2018 1:44pm Note Date/Time July 11, 2018 1:45pm [facility] at [place] [id number] Genetics Consult Note Signed Patient: Maria M Mckeon MR#: [id number] : 1970 Acct:[id number] Age/Sex: 48 / F Type: REG RCR Copies to: Driss Mendoza Kim E MD~ Genetics Consultation Note - Consult Note Narrative: HISTORY OF PRESENT ILLNESS: Ms. Maria M Mckeon is a 48-year old female with a personal history of early onset breast cancer diagnosed at 47 years of age. She was referred to the Cancer Genetics Clinic at [facility] by her physician, Dr. Tanya Washington. Ms. [...] 04/20/18 showed invasive ductal carcinoma, ER positive, KY negative, Her2 negative. On 05/07/18, she underwent [...] extramammary Pagets disease Ms. Mckeon is of Faroese, Uzbek, Bulgarian, Cambodian, and Indian descent. There is no known Ashkenazi Restoration ancestry. Consanguinity was denied. OFC: 52 cm [...] Mckeon elected to undergo genetic testing using [facility] OvaNext panel, which looks at the following [...] was drawn. The sample was sent to [facility] for analysis. Results are typically available in 3-4 weeks. 2. Ms. Mckeon will return to the Cancer Genetics Clinic in approximately four weeks to discuss her test results. 3. We remain available to Ms. Mckeon or her family members at [phone] if any questions arise regarding information discussed at today's visit. Viki Gonsalez MS Licensed Genetic Counselor [facility] Judiht Bhatt MD Clinical File Keeper Departments of Genetics and Genome Sciences and Pediatrics [facility] PHYSICIAN STATEMENT OF TIME: I spent 10 minutes with this patient and >50% was spent on counseling and coordination of care. Dictated By: Viki Gonsalez DD/ [id number] Signed By: <Electronically signed by Viki Gonsalez> 07/20/18 1154 <Electronically signed by Judith Bhatt MD> 07/20/18 1343 [facility] Work Phone: [phone]) 331-315712-14-2018 Progress note Author Dalia Koch [facility] July 13, 2018 10:50am Note Date/Time July 13, 2018 10:35am [place] [address] Hem/Onc Follow Up Note - OP Signed Patient: Maria M Mckeon MR#: [id number] : 1970 Acct:[id number] Age/Sex: 48 / F Type: REG RCR [...] LN neg), moderately differentiated adenocarcinoma, ER 90%, KY 0%, Her2 not overexpressed --Sent Oncotype DX [...] she is now interested in receiving an Txirqv-b-Wozq for further chemotherapy and lab draws. PREVIOUS HISTORY: This is a 48 year old lady who found a large mass in her right upper outer quadrant breast in March. 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 She did not see medical oncology or discuss breast conserving therapy or immediate reconstruction with her surgeon. On 05/07/2018, she underwent right modified radical mastectomy with axillary lymph node dissection (no attempt for sentinel lymph node) and left simple mastectomy with axillary dissection. Pathology showed right breast with 4.2cm mass, 4 lymph nodes negative--ER/KY/Her2 unchanged. 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 [...] for coordination of care (as documented) and dtlc-co-bpho counseling of patient and/or family. Dictated By: Dalia Koch DD/ 1030 Signed By: <Electronically signed by Dalia Koch> 07/13/18 1050 [place] Work Phone: [phone]) 351-966011-29-2018 Progress note Author Tanya Washington [facility] June 28, 2018 8:55am Note Date/Time June 28, 2018 8:32am [facility] [place] [address] Hem/Onc Follow Up Note - OP Signed Patient: Maria M Mckeon MR#: [id number] : 1970 Acct:[id number] Age/Sex: 48 / F Type: REG RCR [...] LN neg), moderately differentiated adenocarcinoma, ER 90%, KY 0%, Her2 not overexpressed --Sent Oncotype DX [...] invasive mammary carcinoma, grade 2-3, ER 95%, KY 0%, Her2 negative. She did not see medical oncology or discuss breast conserving therapy or immediate reconstruction with her surgeon. On 05/07/2018, she underwent right modified radical mastectomy with axillary lymph node dissection (no attempt for sentinel lymph node) and left simple mastectomy with axillary dissection. Pathology showed right breast with 4.2cm mass, 4 lymph nodes negative--ER/KY/Her2 unchanged. No cancer in left breast or [...] ovarian cancer. 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 Dictated By: Tanya Washington MD DD/ Signed By: <Electronically signed by Tanya Washington MD> 06/28/18 0855 [place] Work Phone: [phone]) 155-979511-10-2018 Consult note Author Tanya Washington [facility] June 09, 2018 8:53am Note Date/Time June 08, 2018 9 :48am [facility] at [address] [address] Hem/Onc Consult Note - OP Signed Patient: Maria M Mckeon MR#: [id number] : 1970 Acct:[id number] Age/Sex: 47 / F Type: REG RCR [...] an invasive mammary carcinoma, grade 2-3,ER 95%, KY 0%, Her2 negative. She did not see medical oncology or discuss breast conserving therapy or immediate reconstruction with her surgeon. On 05/07/2018, she underwent right modified radical mastectomy with axillary lymph node dissection (no attempt for sentinel lymph node) and left simple mastectomy with axillary dissection. Pathology showed right breast with 4.2cm mass, 4 lymph nodes negative--ER/KY/Her2 unchanged. No cancer in left breast or [...] ovarian cancer. The patient is followed by [facility] dermatology due to recurrent squamous cell skin cancers andhas had genetic testing for this, but not for predisposition to breast cancer. 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 Bilateral mastectomy [...] for coordination of care (as documented) and zudv-hz-fpwf counseling of patient and/or family. Greater than 35 minutes Dictated By: Tanya Washington MD DD/ 0948 Signed By: <Electronically signed by Tanya Washington MD> 06/09/18 0853 [place] Work Phone: Evaluation noteNo [employer] [employer] Other Evaluation note* Diagnosis Onset Date Resolution [...] r esolved Mass of left axilla resolved [facility] Work Phone: Evaluation noteNo assessment information available [facility] Work Phone: Evaluation note* Diagnosis Onset Date Resolution Status Dysuria chronic UTI (urinary tract infection) noneactive [facility] Work Phone: Hiscmss general Narrative - Reported* Type Description Date [...] History double mastectomy Hospitalization History see above [facility] Other [facility] general Narrative - Reported* Type Description Date [...] History double mastectomy Hospitalization History see above [facility] Other Hisjxtk general Narrative - Reported* Type Description Date [...] History double mastectomy Hospitalization History see above [facility] Other Hisdgjl general Narrative - Reported* Type Description Date [...] History double mastectomy Hospitalization History see above [facility] Other Hospital course Narrative No data available for this section [facility] No data available for this section [facility] No data available for this section [facility] Summary Purpose Family History No Family History [...] pain Mass of left axilla Chief Complaint m15.0 / z79.899 Possible UTI Reason for Visit Dysuria UTI (urinary tract infection) Additional Source Comments INFORMATION SOURCE (unrecogn ized section and content) DATE CREATED AUTHOR 12/20/2018 [facility] DATE CREATED AUTHOR AUTHOR'S ORGANIZ ATION 12/14/2022 [facility] DATE CREATED AUTHOR AUTHOR'S ORGANIZ ATION 06/12/2023 [facility] EPIC DATE CREATED AUTHOR AUTHOR'S ORGANIZ ATION 11/29/2023 [place] [facility] DATE CREATED AUTHOR AUTHOR'S ORGANIZ ATION 12/02/2023 [facility] REASON FOR VISIT (unrecogniz ed section and [...] MD Primary Care Provider Active Ze Larose DO [facility] Attending Provider Active Team Status: Active Member [...] October 19, 2023 End: October 19, 2023 Team Status: Inactive Member Role Status Dates ROBIN Alvarado Attending Provider Active S tart: November 26, 2023 End: November 26, 2023 Jessica Dasilva NP-C Primary Care Provider Active Start: November 26, 2023 End: November 26, 2023 Team Status: Inactive Member Role Status Dates Tanya Washington MD Attending Provider Active Start: November 27, 2023 End: November 27, 2023 Goals (unrecognized section and content) Goals [...] BE BASED ON THE PRIMARY CLINICAL RECORDS. NPS [facility]. provides no warranty or guarantee of the accuracy or completeness of information in this document.
--- NOTE | 2023-12-08 17:55 | ED_ITS ---
HPI HPI - General Adult General Chief complaint: Abdominal Pain Stated complaint: poss diverticulitis attack Time Seen by Provider: 12/08/23 17:29 Source: patient Mode of arrival: walk-in Limitations: no limitations History of Present Illness HPI narrative: Patient is a 53-year-old female who is presenting to the ER today with chief complaint of left lower quadrant pain Left-sided abdominal pain. Patient has no rash. Patient went to an urgent care approximately 10 to 11 days ago, patient was thought to have possible diverticulitis. Patient has no urinary frequency, urgency or burning. Patient does have a uterus and ovaries. Patient does have her gallbladder and appendix. Patient has gone through breast cancer treatment, she is currently in remission taking medication for that. Patient patient has no fever or chills. Patient states she thought the pain was getting better, but then got worse again today at 3:00. Patient has had diverticulitis several times. Patient has had approximately 7-9 CAT scans for different things in the past including a few abdomen but mainly chest. Patient has no flank pain or back pain. No history of kidney stones. All systems are negative except as noted/marked. All systems reviewed and otherwise negative. Nurses note and vital signs reviewed and patient is not hypoxic. General: The patient appears well and in no apparent distress. Patient is resting comfortably on cart. Patient is not toxic, lethargic, or listless Skin: Warm, dry, no pallor noted. There is no rash noted. No petechiae, purpura. Head: Normocephalic, atraumatic Eye: Normal conjunctiva, no drainage, EOMI. PERRL Ears, Nose, Mouth, and Throat: oral mucosa is moist. Nares patent. Mouth without vesicles. Cardiovascular: Regular Rate and Rhythm, no murmur, gallop, rub Respiratory: Patient is in no distress, no accessory muscle use, lungs are clear to auscultation, no wheezing, rales or rhonchi Back: non-tender, no CVA tenderness bilaterally to percussion. No CT LS midline pain GI: Obese, moderate tenderness to palpation between the left lower and the left upper quadrant, no left flank pain, no left CVA tenderness. No suprapubic tenderness palpation, abdomen is soft, no peritoneal's, minimal right upper quadrant midepigastric tenderness palpation, otherwise no tenderness to palpation, no masses appreciated. No rebound, guarding, or rigidity noted. No distention Musculoskeletal: Patient has full range of motion of all of the extremities, no motor, sensory, or focal neurological deficits Neurological: A&O x4, normal speech Psychiatric: Cooperative Related Data Home Medications ?Medication ?Instructions ?Recorded ?Confirmed amlodipine 10 mg tablet 10 mg PO DAILY 05/13/23 12/08/23 atorvastatin 20 mg tablet 20 mg PO QPM 05/13/23 12/08/23 citalopram 20 mg tablet 20 mg PO DAILY 05/13/23 12/08/23 dapagliflozin propanediol 5 mg 5 mg PO DAILY 05/13/23 12/08/23 tablet (Farxiga) gabapentin 300 mg capsule 300 mg PO TID 05/13/23 12/08/23 glipizide 5 mg tablet 5 mg PO DAILY 05/13/23 12/08/23 losartan 100 1 tab PO DAILY 05/13/23 12/08/23 mg-hydrochlorothiazide 25 mg tablet oxaprozin 600 mg tablet 600 mg PO BID 05/13/23 12/08/23 tamoxifen 20 mg tablet 20 mg PO QPM 05/13/23 12/08/23 tizanidine 4 mg tablet 4 mg PO QPM 05/13/23 12/08/23 triamterene 37.5 1 cap PO DAILY 05/13/23 12/08/23 mg-hydrochlorothiazide 25 mg capsule semaglutide 0.25 mg or 0.5 mg (2 0.25 mg subcut .1xweek 12/08/23 12/08/23 mg/3 mL) subcutaneous pen injector (Ozempic) Allergies Allergy/AdvReac Type Severity Reaction Status Date / Time acetaminophen [From Percocet] Allergy Severe Verified 12/08/23 17:37 homatropine [From Hycodan] Allergy Severe Verified 12/08/23 17:37 hydrocodone [From Hycodan] Allergy Severe Verified 12/08/23 17:37 naproxen [From Aleve] Allergy Severe Verified 12/08/23 17:37 oxycodone [From Percocet] Allergy Severe Verified 12/08/23 17:37 Sulfa (Sulfonamide Allergy Severe Verified 12/08/23 17:37 Antibiotics) Penicillins Allergy Mild Verified 12/08/23 17:37 Opioid HPI Opioid Management Most Recent Opioid Data: Last Pain Scale 4 05/10/24 17:58 Last MAR Pain Assessment 12/08/23 17:58 [facility] Medical History (Updated 12/08/23 @ 18:06 by Rodo Feliciano MD) Hyperlipidemia ?E78.5 - Hyperlipidemia, unspecified (ICD-10) Depression ?F32.A - Depression, unspecified (ICD-10) Hypertension ?I10 - Essential (primary) hypertension (ICD-10) Non-insulin dependent type 2 diabetes mellitus ?E11.9 - Type 2 diabetes mellitus without complications (ICD-10) Acquired lymphedema ?I89.0 - Lymphedema, not elsewhere classified (ICD-10) Breast cancer ?C50.919 - Malignant neoplasm of unspecified site of unspecified female breast (ICD-10) Diabetes ?E11.9 - Type 2 diabetes mellitus without complications (ICD-10) Surgical History History of mastectomy ?Z90.10 - Acquired absence of unspecified breast and nipple (ICD-10) Family History Mother Family history of cancer Father Family history of diabetes mellitus Other Family history of myocardial infarction Social History Within the past year, how often did you have a drink containing alcohol: 2-4 times a month Within the past year, how many standard drinks containing alcohol did you have on a typical day: 1 or 2 Within the past year, how often did you have six or more drinks on one occasion: never Total score: 0 Score interpretation: A score less than 3 is consistent with normal alcohol consumption. 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 level of school completed/degree received: Master's degree Feel stressed/tense/nervous/anxious/difficulty sleeping: not at all Do you think of yourself as: straight/heterosexual Gender Identity: female Exam Constitutional Vital Signs, click to edit/add: Last Vital Signs Temp 98.1 F 12/08/23 17:32 Pulse 92 H 12/08/23 17:32 Resp 18 12/08/23 17:32 BP 106/73 12/08/23 17:32 Pulse Ox 97 12/08/23 17:32 O2 Del Method Room Air 12/08/23 17:32 Course Vital Signs Vital signs: Vital Signs Temperature 98.1 F 12/08/23 17:32 Pulse Rate 92 H 12/08/23 17:32 Respiratory Rate 18 12/08/23 17:32 Blood Pressure 106/73 12/08/23 17:32 Pulse Oximetry 97 12/08/23 17:32 Oxygen Delivery Method Room Air 12/08/23 17:32 Temperature 98.1 F 12/08/23 17:32 Pulse Rate 92 H 12/08/23 17:32 Respiratory Rate 18 12/08/23 17:32 Blood Pressure 106/73 12/08/23 17:32 Pulse Oximetry 97 12/08/23 17:32 Oxygen Delivery Method Room Air 12/08/23 17:32 Medical Decision Making MDM Narrative Medical decision making narrative: Patient was given 1 L of IV fluid. Patient was given Toradol and Bentyl and Zofran. Lab work, lactic acid, CT of the abdomen pelvis was done with IV contrast. Patient has already taken Cipro and Flagyl and just took her last dose today for 10 days. 1900 Patient's case will be transition to Dr. Allison at 0 to review patient's lab work, CT scan, and performed final disposition Discharge Plan Discharge Patient Disposition: Still a Patient
[2023-12-08] MEDS: KETOROLAC TROMETHAMINE 30 MG/ML VIAL 15 MG IVP (17:58)
[2023-12-08 17:59] LABS: Basophils Absolute Auto 0.1 10^3/uL (0.0-0.1); Basophils Percent Auto 0.6 % (0.2-2.0); Eosinophils Absolute Auto 0.2 10^3/uL (0.0-0.7); Eosinophils Percent Auto 2.4 % (0.9-7.0); Hematocrit 45.2 % (36.0-48.0); Hemoglobin 15.3 g/dL (12.0-16.0); Immature Granulocytes Abs Auto 0.03 10^3/uL (0.00-0.03); Immature Granulocytes Pct Auto 0.3 % (0.0-0.5); Lymphocytes Absolute Auto 2.4 10^3/uL (1.2-3.8); Lymphocytes Percent Auto 26.6 % (20.5-60.0); Mean Corpuscular HGB Conc 33.8 g/dL (29.9-35.2); Mean Corpuscular Hemoglobin 28.9 pg (26.7-34.0); Mean Corpuscular Volume 85.4 fL (81.0-99.0); Mean Platelet Volume 9.1 fL (9.5-13.5); Monocytes Absolute Auto 0.7 10^3/uL (0.3-0.8); Monocytes Percent Auto 7.8 % (1.7-12.0); Neutrophils Absolute Auto 5.5 10^3/uL (1.4-6.5); Neutrophils Percent Auto 62.3 % (43.0-75.0); Platelet Count 333 10^3/uL (150-450); Red Blood Count 5.29 10^6/uL (4.20-5.40); Red Cell Distribution Width 13.6 % (11.0-15.0); White Blood Count 8.8 10^3/uL (4.0-11.0)
[2023-12-08] MEDS: 0.9 % SODIUM CHLORIDE 1,000 ML 999 ML IV (17:59)
[2023-12-08] MEDS: ONDANSETRON PF 4 MG/2 ML VIAL IV (17:59)
[2023-12-08] MEDS: DICYCLOMINE HCL 20 MG/2 ML VIAL IM (17:59)
[2023-12-08 18:09] LABS: Alanine Aminotransferase 30 U/L (14-59); Albumin Globulin Ratio 1.1; Albumin Level 4.1 g/dL (3.4-5.0); Alkaline Phosphatase 46 U/L (46-116); Anion Gap 16.3; Aspartate Amino Transferase 38 U/L (15-37); BUN Creatinine Ratio 18.4; Bilirubin Total 0.3 mg/dL (0.2-1.0); Calcium 9.6 mg/dL (8.5-10.1); Carbon Dioxide 26.1 mmol/L (21.0-32.0); Chloride 101 mmol/L (98-107); Estimated GFR (African America >60 (>=60); Estimated GFR (Non-African Ame 50 (>=60); Globulin 3.8 g/dL; Glucose 89 mg/dL (74-106); Potassium 3.4 mmol/L (3.5-5.1); Sodium 140 mmol/L (136-145); Total Protein 7.9 g/dL (6.4-8.2)
[2023-12-08 18:11] LABS: Lactate/Lactic Acid 0.8 mmol/L (0.4-2.0); Troponin I High Sensitivity 4.8 pg/mL (4.0-51.3)
[2023-12-08 18:54] LABS: Bilirubin Urine NEGATIVE (NEGATIVE); Blood Urine NEGATIVE (NEGATIVE); Clarity Urine CLEAR (CLEAR); Color Urine YELLOW (YELLOW); Glucose Urine UA >=1000 mg/dL (NEGATIVE); Ketones Urine NEGATIVE (NEGATIVE); Leukocyte Esterase Urine TRACE (NEGATIVE); Nitrite Urine NEGATIVE (NEGATIVE); Protein Urine NEGATIVE (NEG/TRACE); Specific Gravity Urine >=1.030 (1.005-1.025); Urobilinogen Urine 0.2 EU/dL (0.2-1.0)
[2023-12-08 19:05] LABS: Bacteria Urine MODERATE #/HPF (NONE SEEN); Cast Seen? NONE SEEN #/LPF (NONE SEEN); Crystals Seen? None Seen #/HPF (None Seen); Mucus Urine NONE SEEN (NONE SEEN); Squamous Epithelial Cell Urine MANY #/LPF (NONE/RARE); Urine Culture Indicated YES
[2023-12-08 19:48] VITALS: BP 117/83; O2SAT 97
--- NOTE | 2023-12-08 20:00 | ED_ITS ---
HPI - Abdominal Pain General Chief Complaint: Abdominal Pain Stated Complaint: poss diverticulitis attack Time Seen by Provider: 12/08/23 17:29 Source: patient Mode of arrival: walk-in Limitations: no limitations History of Present Illness HPI narrative: The patient was seen initially by Dr. Feliciano and signed out to me after discussing the case with him thoroughly. Please see his full history and physical exam. Related Data Home Medications ?Medication ?Instructions ?Recorded ?Confirmed amlodipine 10 mg tablet 10 mg PO DAILY 05/13/23 12/08/23 atorvastatin 20 mg tablet 20 mg PO QPM 05/13/23 12/08/23 citalopram 20 mg tablet 20 mg PO DAILY 05/13/23 12/08/23 dapagliflozin propanediol 5 mg 5 mg PO DAILY 05/13/23 12/08/23 tablet (Farxiga) gabapentin 300 mg capsule 300 mg PO TID 05/13/23 12/08/23 glipizide 5 mg tablet 5 mg PO DAILY 05/13/23 12/08/23 losartan 100 1 tab PO DAILY 05/13/23 12/08/23 mg-hydrochlorothiazide 25 mg tablet oxaprozin 600 mg tablet 600 mg PO BID 05/13/23 12/08/23 tamoxifen 20 mg tablet 20 mg PO QPM 05/13/23 12/08/23 tizanidine 4 mg tablet 4 mg PO QPM 05/13/23 12/08/23 triamterene 37.5 1 cap PO DAILY 05/13/23 12/08/23 mg-hydrochlorothiazide 25 mg capsule semaglutide 0.25 mg or 0.5 mg (2 0.25 mg subcut .1xweek 12/08/23 12/08/23 mg/3 mL) subcutaneous pen injector (Ozempic) Allergies Allergy/AdvReac Type Severity Reaction Status Date / Time acetaminophen [From Percocet] Allergy Severe Verified 12/08/23 17:37 homatropine [From Hycodan] Allergy Severe Verified 12/08/23 17:37 hydrocodone [From Hycodan] Allergy Severe Verified 12/08/23 17:37 naproxen [From Aleve] Allergy Severe Verified 12/08/23 17:37 oxycodone [From Percocet] Allergy Severe Verified 12/08/23 17:37 Sulfa (Sulfonamide Allergy Severe Verified 12/08/23 17:37 Antibiotics) Penicillins Allergy Mild Verified 12/08/23 17:37 [facility] Medical History (Updated 12/08/23 @ 18:06 by Rodo Feliciano MD) Hyperlipidemia ?E78.5 - Hyperlipidemia, unspecified (ICD-10) Depression ?F32.A - Depression, unspecified (ICD-10) Hypertension ?I10 - Essential (primary) hypertension (ICD-10) Non-insulin dependent type 2 diabetes mellitus ?E11.9 - Type 2 diabetes mellitus without complications (ICD-10) Acquired lymphedema ?I89.0 - Lymphedema, not elsewhere classified (ICD-10) Breast cancer ?C50.919 - Malignant neoplasm of unspecified site of unspecified female [address] (ICD-10) Diabetes ?E11.9 - Type 2 diabetes mellitus without complications (ICD-10) Surgical History History of mastectomy ?Z90.10 - Acquired absence of unspecified breast and nipple (ICD-10) Family History Mother Family history of cancer Father Family history of diabetes mellitus Other Family history of myocardial infarction Social History Within the past year, how often did you have a drink containing alcohol: 2-4 times a month Within the past year, how many standard drinks containing alcohol did you have on a typical day: 1 or 2 Within the past year, how often did you have six or more drinks on one occasion: never Total score: 0 Score interpretation: A score less than 3 is consistent with normal alcohol consumption. 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 level of school completed/degree received: Master's degree Feel stressed/tense/nervous/anxious/difficulty sleeping: not at all Do you think of yourself as: straight/heterosexual Gender Identity: female Exam Constitutional Vital Signs, click to edit/add: Last Vital Signs Temp 98.1 F 12/08/23 17:32 Pulse 92 H 12/08/23 17:32 Resp 18 12/08/23 19:48 BP 117/83 12/08/23 19:48 Pulse Ox 97 12/08/23 19:48 O2 Del Method Room Air 12/08/23 17:32 Course Vital Signs Vital signs: Vital Signs Temperature 98.1 F 12/08/23 17:32 Pulse Rate 92 H 12/08/23 17:32 Respiratory Rate 18 12/08/23 17:32 Blood Pressure 106/73 12/08/23 17:32 Pulse Oximetry 97 12/08/23 17:32 Oxygen Delivery Method Room Air 12/08/23 17:32 Temperature 98.1 F 12/08/23 17:32 Pulse Rate 92 H 12/08/23 17:32 Respiratory Rate 18 12/08/23 19:48 Blood Pressure 117/83 12/08/23 19:48 Pulse Oximetry 97 12/08/23 19:48 Oxygen Delivery Method Room Air 12/08/23 17:32 MDM - Abdominal Pain MDM Narrative Medical decision making narrative: WBC is normal and CAT scan shows constipation. No evidence of diverticulitis. Patient was informed and was recommended MiraLAX. Treatment diagnosis and follow-up were discussed with the patient. Differential Diagnosis Differential diagnosis: Likely abdominal pain, constipation and diverticulitis Lab Data Attestation: I reviewed the patient's lab results. Labs: Lab Results 12/08/23 12/08/23 Range/Units 17:40 18:15 WBC 8.8 (4.0-11.0) 10^3/uL RBC 5.29 (4.20-5.40) 10^6/uL Hgb 15.3 (12.0-16.0) g/dL Hct 45.2 (36.0-48.0) % MCV 85.4 (81.0-99.0) fL MCH 28.9 (26.7-34.0) pg MCHC 33.8 (29.9-35.2) g/dL RDW 13.6 (11.0-15.0) % Plt Count 333 (150-450) 10^3/uL MPV 9.1 L (9.5-13.5) fL Neut % (Auto) 62.3 (43.0-75.0) % Lymph % (Auto) 26.6 (20.5-60.0) % Garvin % (Auto) 7.8 (1.7-12.0) % Eos % (Auto) 2.4 (0.9-7.0) % Baso % (Auto) 0.6 (0.2-2.0) % Neut # (Auto) 5.5 (1.4-6.5) 10^3/uL Lymph # (Auto) 2.4 (1.2-3.8) 10^3/uL Garvin # (Auto) 0.7 (0.3-0.8) 10^3/uL Eos # (Auto) 0.2 (0.0-0.7) 10^3/uL Baso # (Auto) 0.1 (0.0-0.1) 10^3/uL Abs Immat Gran (auto) 0.03 (0.00-0.03) 10^3/uL Imm/Tot Granulo (auto) 0.3 (0.0-0.5) % Sodium 140 (136-145) mmol/L Potassium 3.4 L (3.5-5.1) mmol/L Chloride 101 (98-107) mmol/L Carbon Dioxide 26.1 (21.0-32.0) mmol/L Anion Gap 16.3 BUN 21.0 H (7.0-18.0) mg/dL Creatinine 1.14 H (0.55-1.02) mg/dL Est GFR ( Amer) >60 (>=60) Est GFR (Non-Af Amer) 50 L (>=60) BUN/Creatinine Ratio 18.4 Glucose 89 (74-106) mg/dL Lactate 0.8 (0.4-2.0) mmol/L Calcium 9.6 (8.5-10.1) mg/dL Total Bilirubin 0.3 (0.2-1.0) mg/dL AST 38 H (15-37) U/L ALT 30 (14-59) U/L Alkaline Phosphatase 46 (46-116) U/L Troponin I High Sens 4.8 (4.0-51.3) pg/mL Total Protein 7.9 (6.4-8.2) g/dL Albumin 4.1 (3.4-5.0) g/dL Globulin 3.8 g/dL Albumin/Globulin Ratio 1.1 Lipase 78.0 H (16.0-77.0) U/L Urine Color Yellow (YELLOW) Urine Clarity Clear (CLEAR) Urine pH 6.0 (5.0-9.0) Ur Specific [place] >=1.030 A (1.005-1.025) Urine Protein Negative (NEG/TRACE) mg/dL Urine Glucose (UA) >=1000 A (NEGATIVE) mg/dL Urine Ketones Negative (NEGATIVE) mg/dL Urine Occult Blood Negative (NEGATIVE) Urine Nitrite Negative (NEGATIVE) Urine Bilirubin Negative (NEGATIVE) Urine Urobilinogen 0.2 (0.2-1.0) EU/dL Ur Leukocyte Esterase Trace A (NEGATIVE) Urine RBC 5-10 A (0-2) #/HPF Urine WBC 5-10 A (NONE SEEN) #/HPF Ur Squamous Epith Cells Many A (NONE/RARE) #/LPF Urine Crystals None seen (None Seen) #/HPF Urine Bacteria Moderate A (NONE SEEN) #/HPF Urine Casts None seen (NONE SEEN) #/LPF Urine Mucus None seen (NONE SEEN) Ur Culture Indicated? Yes Imaging Data CT scan - abdomen: Radiologist's impression: ITS Impressions Abdomen/Pelvis CT 12/08/23 17:51 IMPRESSION: No acute abdominal or pelvic pathology. Colonic diverticulosis without diverticulitis. Large amount stool throughout the colon with moderate rectal distention. Electronically authenticated by: PIETRO REGALADO Date: 12/08/2023 19:49 Discharge Plan Discharge Stand Alone Forms: Portal Instructions Chief Complaint: Abdominal Pain Clinical Impression: Acute left lower quadrant pain Patient Disposition: Home, Self-Care Time of Disposition Decision: 19:59 Condition: Good Mode of Transportation: Private Vehicle Prescriptions / Home Meds: No Action amlodipine 10 mg tablet 10 mg PO DAILY atorvastatin 20 mg tablet 20 mg PO QPM citalopram 20 mg tablet 20 mg PO DAILY dapagliflozin propanediol [Farxiga] 5 mg tablet 5 mg PO DAILY gabapentin 300 mg capsule 300 mg PO TID glipizide 5 mg tablet 5 mg PO DAILY losartan-hydrochlorothiazide 100-25 mg tablet 1 tab PO DAILY oxaprozin 600 mg tablet 600 mg PO BID tamoxifen 20 mg tablet 20 mg PO QPM triamterene-hydrochlorothiazid 37.5-25 mg capsule 1 cap PO DAILY tizanidine 4 mg tablet 4 mg PO QPM Ozempic 0.25 mg or 0.5 mg (2 mg/3 mL) pen injector 0.25 mg SUBCUT .1xweek Print Language: Kazakh Instructions: Constipation (ED) Referrals: ARMIN FRITZ [Primary Care Provider] - 1 week
== END 2023-12-08 20:05 | disposition home or self-care (01) ==
PROVIDERS: Emergency Medicine; Emergency Provider Emergency Medicine; PCP Family Medicine
DX: R10.32 Left lower quadrant pain (principal); Z79.899 Other long term (current) drug therapy; E78.5 Hyperlipidemia, unspecified; F32.A Depression, unspecified; I10 Essential (primary) hypertension; E11.9 Type 2 diabetes mellitus without complications; Z79.85 Long-term (current) use of injectable non-insulin antidiabetic drugs; C50.919 Malignant neoplasm of unspecified site of unspecified female breast; Z90.10 Acquired absence of unspecified breast and nipple; K57.30 Diverticulosis of large intestine without perforation or abscess without bleeding; I89.0 Lymphedema, not elsewhere classified
CPT/HCPCS: 36415; 74177; 80053; 81001; 83605; 83690; 84484; 85025; 87086; 96372; 96374; 96375; 99285; J0500; Q9967

== ENCOUNTER 2024-12-30 11:45 | Outpatient (OUT) | payer OTHER, SELFPAY ==
[2024-12-30 12:49] LABS: Free T3 3.41 pg/mL (2.18-3.98); Thyroid Stimulating Hormone 1.674 uIU/mL (0.358-3.740)
[2024-12-30 13:28] LABS: Free T4 1.04 ng/dL (0.76-1.46)
[2024-12-31 04:09] LABS: Triiodothyronine (T3) 215 ng/dL (71-180)
[2025-01-03 00:08] LABS: Reverse T3, Serum 15.9 ng/dL (9.2-24.1)
== END 2024-12-30 11:46 | disposition home or self-care (01) ==
LOC: LAB 11:49
PROVIDERS: PCP Family Medicine; Visit Provider Family Medicine
DX: E07.81 Sick-euthyroid syndrome (principal); R53.82 Chronic fatigue, unspecified; E06.3 Autoimmune thyroiditis
CPT/HCPCS: 36415; 84439; 84443; 84480; 84481; 84482